=== PATIENT | male | born 1945 | race Caucasian/White ===

== ENCOUNTER 2018-10-05 16:57 | Observation (INO) ==
[2018-10-05] MEDS ORDERED: MoRPHine SULFATE 4 MG/ML 1 ML CARP\\VIAL IV STA ×2 (18:02→19:25)
[2018-10-05] MEDS ORDERED: SODIUM CHLORIDE 0.9% 500 ML IV SCH (18:15)
--- NOTE | 2018-10-05 18:42 | Emergency Department Note ---
Entered by Otoniel Yanes acting as a scribe for Johnathon Smith MD History of Present Illness General Chief complaint: Back Injury/Pain Time Seen by Provider: 10/05/18 17:57 Source: patient History of Present Illness Onset (ago): hour(s) (this morning) Location: back (lower) Pain Consistency: + constant Maximum Pain Intensity: 8 Exacerbated By: + movement Associated symptoms: + denies other symptoms (abdominal pain) and + other (right leg pain, groin pain); no chest pain, no fever/chills, no headaches, no nausea/vomiting and no shortness of breath The patient is a 73 y/o male who presents to the ED w/ CC of constant lower back pain beginning this morning. The patient states his symptoms started suddenly this morning after getting out of bed. He reports he was not able to urinate at first, but he is able to now. The patient notes his symptoms spread to his sides and through his abdomen to his groin. He states he also feels a "knot" on his bottom. The patient reports his pain also shoots down his right leg and worsens with movement, especially lifting his legs. He notes a history of three back surgeries with his last one being "quite a while ago" and was performed at [facility] in [place], [place]. The patient states he was brought to the ED via ambulance and was given Fentanyl. He reports the Fentanyl helped his pain but it is wearing off now. The patient notes he also has burning with urination, but he has an appointment in a week. He states a history of COPD and asthma as well. The patient reports his local PCP is the [facility] in [place], [place]. He denies falling and injuring himself, abdominal pain, nausea, vomiting, fevers, chills, numbness and weakness to his legs, bowel and bladder trouble, taking blood thinners, chest pain, shortness of breath, and headache. Home Medications Home Medications Medication Instructions Recorded Confirmed Type budesonide-formoterol [Symbicort] 1 puff INHALATION BID PRN 11/30/17 10/05/18 History bupropion HCl 150 mg PO QAM 11/30/17 10/05/18 History clonazepam 0.5 mg PO BID 11/30/17 10/05/18 History fluticasone propionate 2 spray INTRANASAL DAILY PRN 11/30/17 10/05/18 History gabapentin 300 mg PO TID 11/30/17 10/05/18 History lisinopril 10 mg PO DAILY 11/30/17 10/05/18 History pantoprazole 40 mg PO DAILY 11/30/17 10/05/18 History sertraline 100 mg PO BID 11/30/17 10/05/18 History tiotropium bromide [Spiriva with 1 cap INHALATION DAILY PRN 11/30/17 10/05/18 H istory HandiHaler] trazodone 300 mg PO HS 11/30/17 10/05/18 History tamsulosin [Flomax] 0.4 mg PO QPM 10/05/18 10/05/18 History Allergies Allergy/AdvReac Type Severity Reaction Status Date / Time ibuprofen Allergy Unknown HIVES Verified 10/05/18 21:38 Past Med/Surg History Medical History HTN (hypertension) (Chronic) BPH (benign prostatic hyperplasia) (Chronic) Asthma (Chronic) PTSD (post-traumatic stress disorder) (Chronic) MRSA (methicillin resistant Staphylococcus aureus) (Chronic) VIK on CPAP (Chronic) Surgical History History of intestinal surgery (Chronic) History of back surgery (Chronic) Family History Other Family history non-contributory Social History Preferred Language: Icelandic Communication Ability: Effective 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 and A total of 10 systems reviewed and were otherwise negative Physical Exam Vital Signs Vital Signs - 24 hr 10/05/18 16:55 10/05/18 19:00 10/05/18 20:42 Temperature 36.7 C Temperature Source Oral Sepsis Recent Fever Within 48 Hours No Sepsis New/Unexplained Change in Mental Status No Sepsis Action Taken by Nursing No Action Required Pulse Rate 79 59 L Pulse Rate [Apical] 57 L Pulse Rate from SpO2 Sensor 59 L Respiratory Rate 24 20 18 Respiratory Effort / Characteristics Non-Labored Spontaneous Respiratory Depth Normal Respiratory Pattern Regular Blood Pressure 121/68 124/73 Blood Pressure [Left Arm] 105/59 L Blood Pressure Mean 85 90 Blood Pressure Mean [Left Arm] 74 Pulse Oximetry 94 91 90 Oxygen Delivery Method Room Air Room Air 10/05/18 21:00 10/05/18 21:30 Temperature Temperature Source Sepsis Recent Fever Within 48 Hours Sepsis New/Unexplained Change in Mental Status Sepsis Action Taken by Nursing Pulse Rate 60 58 L Pulse Rate [Apical] Pulse Rate from SpO2 Sensor 60 58 L Respiratory Rate 17 18 Respiratory Effort / Characteristics Respiratory Depth Respiratory Pattern Blood Pressure 105/60 105/66 Blood Pressure [Left Arm] Blood Pressure Mean 75 79 Blood Pressure Mean [Left Arm] Pulse Oximetry 90 95 Oxygen Delivery Method General: Uncomfortable appearing older male in no acute distress. Significant pain with movement but minimal pain at rest. HEENT: Normal cephalic atraumatic. Pupils are equal round and reactive to light. Extraocular movements are intact. Oropharynx is pink with moist mucous membranes. No swelling of the mouth lips or tongue. Neck: Supple with a midline trachea. No meningeal signs or stiffness, no JVD or bruits. No Stridor. Chest: Clear to auscultation bilaterally. No wheezes or rhonchi. No increased work of breathing. Heart: regular rate and rhythm. Abdomen: Soft nontender, nondistended without rebound guarding or rigidity. Extremities: No cyanosis clubbing or edema. No calf tenderness or asymmetry Spine/Back. Tenderness to palpation along the lower back near the SI joint. Intact reflexes to the lower extremities in addition to motor and sensation. No CVA tenderness. Skin: Good turgor without rashes. Neurologic exam: Cranial nerves two through 12 are intact. Motor and sensation are intact and symmetrical throughout. Course 1757: Past medical records reviewed. The patient was evaluated in room A12B. A complete history and physical exam was performed. 1923: I reevaluated the patient. He appears more comfortable, but he is still having pain. He settled slightly. His blood work is unremarkable. He is getting more morphine. 2045: The patient does not think he can go home upon reevaluation. 2047: I discussed the patient's case with Dr. Peña, [facility] Hospitalist. The patient will be evaluated for further management and care. Administered Medications Clonazepam (Klonopin) 0.5 mg PO BID MARIBETH Stop: 11/04/18 22:28 Last Admin: 10/05/18 23:18 Dose: 0.5 mg Documented by: [id number] Gabapentin (Neurontin) 300 mg PO BID MARIBETH Stop: 11/04/18 22:28 Last Admin: 10/05/18 23:18 Dose: 300 mg Documented by: [id number] Oxycodone/Acetaminophen (Percocet 5mg/325mg) 1 tab PO Q6H PRN PRN Reason: Pain Stop: 10/19/18 22:28 Last Admin: 10/05/18 22:51 Dose: 1 tab Documented by: [id number] Sertraline HCl (Zoloft) 100 mg PO BID MARIBETH Stop: 11/04/18 22:28 Last Admin: 10/05/18 23:18 Dose: 100 mg Documented by: [id number] Trazodone HCl (Desyrel) 300 mg PO HS MARIBETH Stop: 11/05/18 20:59 Last Admin: 10/05/18 23:39 Dose: 300 mg Documented by: [id number] Discontinued Medications Sodium Chloride (Nss) 500 mls @ 999 mls/hr IV .Q31M MARIBETH Stop: 10/05/18 18:45 Last Infusion: 10/05/18 19:13 Dose: 0 mls/hr Documented by: [id number] Admin: 10/05/18 18:49 Dose: 999 mls/hr Documented by: [id number] Methylprednisolone (Solumedrol) 125 mg IV NOW STA Stop: 10/05/18 20:42 Last Admin: 10/05/18 20:47 Dose: 125 mg Documented by: [id number] Morphine Sulfate (Morphine Sulfate) 4 mg IV NOW STA Stop: 10/05/18 18:03 Last Admin: 10/05/18 18:49 Dose: 4 mg Documented by: [id number] Morphine Sulfate (Morphine Sulfate) 4 mg IV NOW STA Stop: 10/05/18 19:26 Last Admin: 10/05/18 19:38 Dose: 4 mg Documented by: [id number] Medical Decision Making Differential Diagnosis Differential diagnosis includes: lumbar disk disease, muscle spasm, aneurysm, kidney stone, infection, electrolyte or metabolic abnormality, and Cauda equina. Medical Records Attestation: I reviewed the patient's medical records. Home Medications Current Medication List: was personally reviewed by me Laboratory Data Attestation: I reviewed the patient's lab results. Result diagrams: 10/05/18 18:32 10/05/18 18:32 Lab Results 10/05/18 10/05/18 10/05/18 Range/Units 18:32 18:32 19:50 WBC 7.42 (4.8-10.8) K/uL RBC 4.78 (4.7-6.1) M/uL Hgb 13.3 L (14.0-18.0) g/dL Hct 40.6 L (42-52) % MCV 84.9 (80-100) fL MCH 27.8 (25-34) pg MCHC 32.8 (32-36) g/dL RDW Std Deviation 43.9 (36.4-46.3) fL RDW Coeff of Hector 14.0 (11.5-14.5) % Plt Count 192 (130-400) K/uL MPV 10.2 (7.4-10.4) fL Immature Gran % (Auto) 0.5 % Neut % (Auto) 74.6 % Lymph % (Auto) 14.3 % Ross % (Auto) 9.0 % Eos % (Auto) 1.5 % Baso % (Auto) 0.1 % Immature Gran # (Auto) 0.04 H (0.00-0.02) K/uL Neut # (Auto) 5.53 (1.4-6.5) K/uL Lymph # (Auto) 1.06 L (1.2-3.4) K/uL Ross # (Auto) 0.67 H (0.11-0.59) K/uL Eos # (Auto) 0.11 (0-0.5) K/uL Baso # (Auto) 0.01 (0-0.2) K/uL Sodium 137 (136-145) mmol/L Potassium 4.2 (3.5-5.1) mmol/L Chloride 105 (98-107) mmol/L Carbon Dioxide 27 (21-32) mmol/L Anion Gap 5.0 (3-11) BUN 13 (7-18) mg/dl Creatinine 1.18 (0.6-1.4) mg/dl Est Cr Clr Drug Dosing 64.2 ml/min Est GFR ( Amer) 71.5 Est GFR (Non-Af Amer) 61.7 BUN/Creatinine Ratio 11.4 (10-20) Glucose 90 (70-99) mg/dl Calcium 8.8 (8.5-10.1) mg/dl Total Bilirubin 0.6 (0.2-1) mg/dl AST 17 (15-37) U/L ALT 24 (12-78) U/L Alkaline Phosphatase 55 (45-117) U/L Total Protein 7.0 (6.4-8.2) gm/dl Albumin 3.8 (3.4-5.0) gm/dl Globulin 3.2 (2.5-4.0) gm/dl Albumin/Globulin Ratio 1.2 (0.9-2) Urine Color Dark Yellow Urine Appearance Clear (Clear) Urine pH 5.0 (4.5-7.5) Ur Specific Clarkrange 1.023 (1.000-1.030) Urine Protein Negative (Negative) Urine Glucose (UA) Negative (Negative) Urine Ketones Trace H (Negative) Urine Blood Negative (Negative) Urine Nitrite Negative (Negative) Urine Bilirubin Negative (Negative) Urine Urobilinogen Negative (Negative) Ur Leukocyte Esterase Trace H (Negative) Urine WBC (Auto) 1-5 (0-5) /hpf Urine RBC (Auto) 0-4 (0-4) /hpf U Hyaline Cast (Auto) 5-10 H (0-5) /lpf U Epithel Cells (Auto) 10-20 H (0-5) /lpf Urine Bacteria (Auto) Negative (Negative) Imaging Data Radiologist's Impression: Radiology results as stated below per my review and the radiologist's interpretation: CT lumbar spine wo con CLINICAL HISTORY: 73 years-old Male presenting with lower abdominal pain, back pain. TECHNIQUE: Multidetector CT of the lumbar spine was performed without the use of intravenous contrast. IV contrast: None. One or more dose lowering techniques were used consistent with the principles of ALARA (as low as reasonably achievable), including automatic exposure control, mA or kV adjustment to i ndividual patient size, and/or use of iterative reconstruction. COMPARISON: None. CT DOSE (mGy.cm): The estimated cumulative dose is 1381.63 mGy.cm. FINDINGS: Software Tester topogram: Orthopedic hardware. Posterior bilateral transpedicular screw and adelso fixation of L5-S1. Osseous fusion across this level is evident. No hardware breakage or lucency surrounding the hardware is evident. Interbody spacers noted at L5-S1. Normal lumbar lordosis. Vertebral bodies maintain normal height and alignment. Intervertebral disc heights preserved at the nonoperative levels. Limited evaluation of the soft tissues demonstrate possible disc bulge at L4-5 with only mild effacement of the spinal canal. Anterior osteophytosis is evident. No significant osseous neural foraminal narrowing. No fracture or subluxation. Visualized portion of the sacrum intact. Paraspinal soft tissues within normal limits. Atherosclerosis noted. IMPRESSION: 1. No acute osseous injury of the lumbar spine. 2. Posterior lumbar fusion of L5-S1. No hardware complication. 3. Suspected adjacent level degenerative change at L4-5. Electronically signed by: Owen Duque M.D. 10/05/2018 7:[address] abd pelvis wo con CLINICAL HISTORY: 73 years-old Male presenting with lower abdominal pain, back pain. TECHNIQUE: Multidetector CT of the abdomen and pelvis was performed without the use of intravenous contrast. IV contrast: None. One or more dose lowering techniques were used consistent with the principles of ALARA (as low as reasonably achievable), including automatic exposure control, mA or kV adjustment to individual patient size, and/or use of iterative reconstruction. COMPARISON: 07/30/2012. CT DOSE (mGy.cm): The estimated cumulative dose is 1381.63. FINDINGS: Software Tester topogram: Orthopedic hardware. Lung bases: Normal heart size. Coronary artery calcification. No pericardial or pleural effusion. Minimal dependent changes likely atelectasis. Calcified granuloma. Liver: Normal morphology. Density consistent with hepatic steatosis. Biliary: No gross biliary ductal dilatation allowing for noncontrast technique. Normal gallbladder. Pancreas: Mild parenchymal atrophy. Spleen: Normal noncontrast appearance. Adrenal glands: Normal noncontrast appearance. Kidneys and ureters: Moderate bilateral nonspecific perinephric fat infiltration. Nonobstructing 8 mm calculus in the interpolar region of the right kidney. Cortical thinning is suggested. No hydronephrosis. Ureters nondistended. Bladder: Circumferential bladder wall thickening incompletely explained by underdistention. Pelvic organs: Normal noncontrast appearance. Bowel: Diverticulosis of the proximal to mid sigmoid colon. No wall thickening or pericolonic inflammatory change. The appendix is normal. No bowel obstruction. Peritoneal cavity: No free fluid or intraperitoneal gas. Lymph nodes: No gross lymphadenopathy allowing for noncontrast technique. Vasculature: Atherosclerosis of the normal caliber abdominal aorta. Abdominal wall: Postsurgical changes of the ventral abdominal wall with a prost hetic mesh likely in place. No associated fluid collection. No ventral hernia. Musculoskeletal: Degenerative changes of the spine. Posterior bilateral transpedicular screw and adelso fixation of L5-S1 with interbody spacer in place. Nondisplaced subacute fractures of the lateral and posterior ninth through 11th ribs on the left. No convincing evidence of acute fracture. IMPRESSION: 1. Allowing for noncontrast technique, no acute intra-abdominal pathology. 2. Circumferential bladder wall thickening may indicate chronic bladder outlet obstruction despite the absence of prostatomegaly. Correlate with urinalysis to exclude cystitis. 3. Diverticulosis coli. No evidence of diverticulitis. 4. Post surgical changes of the anterior abdominal wall. 5. Hepatic steatosis. 6. Right nephrolithiasis. 7. Subacute fractures of several left ribs. Electronically signed by: Owen Duque M.D. 10/05/2018 7:21 PM Blood Pressure Blood Pressure Findings: Normal blood pressure Blood Pressure Disposition: did not require urgent referral MDM Narrative This patient comes in as described above. He was placed in room A12. He is here for treatment evaluation of low back pain. He had several back surgeries. This started today when he was moving. It does radiate down his right leg. He has no neurologic deficits and has nothing to suggest cauda equina syndrome. He has nothing to suggest infection. He did receive IV fentanyl. He seems comfortable except for when I try to move him. He was given additional IV morphine and IV Zofran. Multiple blood testing was obtained as well as urinalysis and culture. He has no white count or fever to suggest infection. He has no acute electrolyte or metabolic abnormalities. He did receive IV morphine and was still having significant pain. He received additional doses of IV morphine. I did do a CAT scan of the abdomen and back. There are no acute findings on his CAT scan of his abdomen or back. His bladder has some chronic changes. He did receive IV Solu-Medrol as well. He does not feel that he can go home at this point. I do think he needs to be admitted/observe for intractable pain and treatment of pain management and further evaluation of his back. I did consult the [facility] hospitalist to see him in the ER for these measures. Impression & Plan Intractable back pain, DDD (degenerative disc disease) Discharge Plan Visit Data *Final* Discharge Date/Time: 10/05/18 21:52 Chief Complaint: Back Injury/Pain ED Provider: Johnathon Smith Discharge Problem: Intractable back pain, DDD (degenerative disc disease) Patient Disposition: Admitted As Inpatient Discharge Instructions Interventions: ED Discharge Assessment Last Done: 10/05/18 21:52 Discharge Problem: DDD (degenerative disc disease) Qualifiers: Spinal region: lumbar Qualified Code(s): M51.36 - Other intervertebral disc degeneration, lumbar region The scribe's documentation has been prepared under my direction and personally reviewed by me in its entirety. I confirm that the note above accurately reflects all work, treatment, procedures, and medical decision making performed by me.
[2018-10-05 18:46] LABS: Basophils # (auto) 0.01 K/uL (0-0.2); Basophils % (auto) 0.1 %; Eosinophils # (auto) 0.11 K/uL (0-0.5); Eosinophils % (auto) 1.5 %; Hematocrit (blood only) 40.6 % (42-52); Hemoglobin 13.3 g/dL (14.0-18.0); Immature Granulocytes # (auto) 0.04 K/uL (0.00-0.02); Immature Granulocytes % (auto) 0.5 %; Lymphocytes # (auto) 1.06 K/uL (1.2-3.4); Lymphocytes % (auto) 14.3 %; Mean Corpuscular Hgb Conc 32.8 g/dL (32-36); Mean Corpuscular Volume 84.9 fL (80-100); Mean Platelet Volume 10.2 fL (7.4-10.4); Monocytes # (auto) 0.67 K/uL (0.11-0.59); Neutrophils # (auto) 5.53 K/uL (1.4-6.5); Neutrophils % (auto) 74.6 %; Platelet Count 192 K/uL (130-400); RDW Standard Deviation 43.9 fL (36.4-46.3); Red Blood Count 4.78 M/uL (4.7-6.1); White Blood Count 7.42 K/uL (4.8-10.8)
[2018-10-05 19:02] LABS: Albumin Level 3.8 gm/dl (3.4-5.0); BUN Creatinine Ratio 11.4 (10-20); Calcium 8.8 mg/dl (8.5-10.1); Creatinine Clr Calc Pharmacy 64.2 ml/min; Est GFR (African American) 71.5; Est GFR (Non-African American) 61.7; Potassium 4.2 mmol/L (3.5-5.1)
[2018-10-05 19:05] LABS: Albumin Globulin Ratio 1.2 (0.9-2); Bilirubin,Total 0.6 mg/dl (0.2-1); Globulin 3.2 gm/dl (2.5-4.0)
--- NOTE | 2018-10-05 19:22 | CT Scan Report ---
CT abd pelvis wo con CLINICAL HISTORY: 73 years-old Male presenting with lower abdominal pain, back pain. TECHNIQUE: Multidetector CT of the abdomen and pelvis was performed without the use of intravenous co ntrast. IV contrast: None. One or more dose lowering techniques were used consistent with the princip les of ALARA (as low as reasonably achievable), including automatic exposure control, mA or kV adjust ment to individual patient size, and/or use of iterative reconstruction. COMPARISON: 07/30/2012. CT DOSE (mGy.cm): The estimated cumulative dose is 1381.63. FINDINGS: Freight Dispatcher topogram: Orthopedic hardware. Lung bases: Normal heart size. Coronary artery calcification. No pericardial or pleural effusion. Min imal dependent changes likely atelectasis. Calcified granuloma. Liver: Normal morphology. Density consistent with hepatic steatosis. Biliary: No gross biliary ductal dilatation allowing for noncontrast technique. Normal gallbladder. Pancreas: Mild parenchymal atrophy. Spleen: Normal noncontrast appearance. Adrenal glands: Normal noncontrast appearance. Kidneys and ureters: Moderate bilateral nonspecific perinephric fat infiltration. Nonobstructing 8 mm calculus in the interpolar region of the right kidney. Cortical thinning is suggested. No hydronephr osis. Ureters nondistended. Bladder: Circumferential bladder wall thickening incompletely explained by underdistention. Pelvic organs: Normal noncontrast appearance. Bowel: Diverticulosis of the proximal to mid sigmoid colon. No wall thickening or pericolonic inflamm atory change. The appendix is normal. No bowel obstruction. Peritoneal cavity: No free fluid or intraperitoneal gas. Lymph nodes: No gross lymphadenopathy allowing for noncontrast technique. Vasculature: Atherosclerosis of the normal caliber abdominal aorta. Abdominal wall: Postsurgical changes of the ventral abdominal wall with a prosthetic mesh likely in p lace. No associated fluid collection. No ventral hernia. Musculoskeletal: Degenerative changes of the spine. Posterior bilateral transpedicular screw and adelso fixation of L5-S1 with interbody spacer in place. Nondisplaced subacute fractures of the lateral and posterior ninth through 11th ribs on the left. No convincing evidence of acute fracture. IMPRESSION: 1. Allowing for noncontrast technique, no acute intra-abdominal pathology. 2. Circumferential bladder wall thickening may indicate chronic bladder outlet obstruction despite t he absence of prostatomegaly. Correlate with urinalysis to exclude cystitis. 3. Diverticulosis coli. No evidence of diverticulitis. 4. Post surgical changes of the anterior abdominal wall. 5. Hepatic steatosis. 6. Right nephrolithiasis. 7. Subacute fractures of several left ribs. Electronically signed by: Owen Duque M.D. 10/05/2018 7:21 PM
--- NOTE | 2018-10-05 19:26 | CT Scan Report ---
CT lumbar spine wo con CLINICAL HISTORY: 73 years-old Male presenting with lower abdominal pain, back pain. TECHNIQUE: Multidetector CT of the lumbar spine was performed without the use of intravenous contrast . IV contrast: None. One or more dose lowering techniques were used consistent with the principles of ALARA (as low as reasonably achievable), including automatic exposure control, mA or kV adjustment t o individual patient size, and/or use of iterative reconstruction. COMPARISON: None. CT DOSE (mGy.cm): The estimated cumulative dose is 1381.63 mGy.cm. FINDINGS: Ear Machine Operator topogram: Orthopedic hardware. Posterior bilateral transpedicular screw and adelso fixation of L5-S1. Osseous fusion across this level is evident. No hardware breakage or lucency surrounding the hardware is evident. Interbody spacers no margarita at L5-S1. Normal lumbar lordosis. Vertebral bodies maintain normal height and alignment. Intervertebral disc he ights preserved at the nonoperative levels. Limited evaluation of the soft tissues demonstrate possib le disc bulge at L4-5 with only mild effacement of the spinal canal. Anterior osteophytosis is eviden t. No significant osseous neural foraminal narrowing. No fracture or subluxation. Visualized portion of the sacrum intact. Paraspinal soft tissues within normal limits. Atherosclerosis noted. IMPRESSION: 1. No acute osseous injury of the lumbar spine. 2. Posterior lumbar fusion of L5-S1. No hardware complication. 3. Suspected adjacent level degenerative change at L4-5. Electronically signed by: Owen Duque M.D. 10/05/2018 7:24 PM
[2018-10-05 20:23] LABS: Appearance Urine Clear (Clear); Bacteria Urine Automated Negative (Negative); Blood Urine Negative (Negative); Color Urine Dark Yellow; Glucose Urine UA Negative (Negative); Ketones Urine Trace (Negative); Leukocyte Esterase Urine Trace (Negative); Nitrite Urine Negative (Negative); Protein Urine Negative (Negative); RBC Urine Automated 0-4 /hpf (0-4); Specific Gravity Urine 1.023 (1.000-1.030); Urobilinogen Urine Negative (Negative)
[2018-10-05 20:37] LABS: Bilirubin Urine Negative (Negative); Ictotest Urine Negative (Negative)
[2018-10-05] MEDS ORDERED: methylPREDNISolone 125 MG/2 ML VIAL IV STA (20:41)
[2018-10-05] MEDS ORDERED: ONDANSETRON INJ 2 MG/ML 2 ML VIAL IV PRN (22:29)
[2018-10-05] MEDS ORDERED: TIOTROPIUM BROMIDE 5 PUFF/90 MCG INH INH PRN (22:29)
[2018-10-05] MEDS ORDERED: BUDESONIDE/FORMOTEROL FUMARATE 160/4.5 60 PUFFS/INHALER INH PRN (22:29)
[2018-10-05] MEDS ORDERED: HYDROmorphone INJ 0.5 MG/0.5 ML SYR IV PRN (22:29)
[2018-10-05] MEDS ORDERED: FLUTICASONE PROPIONATE NA SPR 16 GM BTL PRN (22:29)
[2018-10-05] MEDS ORDERED: ACETAMINOPHEN 325 MG TAB PO PRN (22:29)
[2018-10-05] MEDS ORDERED: POLYETHYLENE (MIRALAX) 17 GM PACK PO PRN (22:29)
[2018-10-05] MEDS: OXYCODONE/ACETAMINOPHEN 5mg/325mg TAB PO PRN (22:51)
[2018-10-05] MEDS: SERTRALINE HCL 100 MG TABLET PO SCH (23:18)
[2018-10-05] MEDS: clonazePAM 0.5 MG TAB PO SCH (23:18)
[2018-10-05] MEDS: GABAPENTIN 300 MG CAP PO SCH (23:18)
[2018-10-05] MEDS: TRAZODONE HCL 100 MG TAB PO SCH (23:39)
--- NOTE | 2018-10-06 01:54 | History and Physical Report ---
DATE OF ADMISSION: 10/05/2018 CHIEF COMPLAINT: Severe back pain. HISTORY OF PRESENT ILLNESS: A 73-year-old male with past medical history significant for COPD, PTSD, obstructive sleep apnea, hypertension, BPH, history of back surgeries x3 at [facility] in [place], presents with severe back pain. The patient says that today morning he woke up with severe back pain, moving his legs , trying to ambulate makes it worse, initially had problem to get up, finally was able to hold things and go to bathroom. No incontinence of urine or stools. The patient has trouble urinating for some time. He feels like a burning sensation before he micturates and after that he does not feel like it is getting emptied fully and he has an appointment with [place] [facility]. Denies any hematuria. Normal bowel movements. No blood in stools or black stools. He has a chronic cough, brings some yellowish phlegm once in a while and he has shortness of breath on exertion, he could not walk far because of his back pain and his COPD. He quit smoking 50 years ago. Denies any headache. He has some issues with left eye vision and is following with [facility]. No sore throat, no difficulty swallowing. Appetite is okay. No chest pain, no nausea, no vomiting, no abdominal pain. Currently resting comfortably and hemodynamically stable. ALLERGIES: IBUPROFEN. PAST MEDICAL HISTORY: As mentioned above. PAST SURGICAL HISTORY: Back surgeries x3, colectomy for C. diff, umbilical hernia surgery with mesh placement. MEDICATIONS: The patient is on Symbicort 1 puff inhalation b.i.d. p.r.n., bupropion 150 mg p.o. q.p.m., vitamin D 1000 units p.o. daily, Klonopin 0.5 mg p.o. b.i.d., Flonase 2 sprays intranasally daily p.r.n., gabapentin 300 mg p.o. b.i.d., lisinopril 10 mg p.o. daily, Protonix 40 mg p.o. daily, sertraline 100 mg p.o. b.i.d., Flomax 0.4 mg p.o. q.p.m., Spiriva 18 mcg inhalation daily, trazodone 300 mg p.o. at bedtime. FAMILY HISTORY: Significant for mother had colon cancer. SOCIAL HISTORY: Quit smoking 50 years ago. Drinks 3 beers every day. Lives with his . REVIEW OF SYMPTOMS: As per HPI. Rest of the review of symptoms is negative. PHYSICAL EXAMINATION: GENERAL: The patient is alert and oriented, not in acute distress, obese. VITAL SIGNS: Temperature 36.7, pulse 76, respiratory rate 17, blood pressure 105/60, oxygen 98% on room air. HEENT: No pallor, no icterus. Pupils equal, round, and reactive to light. NECK: No JVD, no neck masses, no carotid bruits. CARDIOVASCULAR: S1, S2 heard, regular rate and rhythm, no murmur, no gallop. RESPIRATORY SYSTEM: Normal AP diameter. No thyromegaly. No wheezing, no crackles. ABDOMEN: Soft, bowel sounds present, nontender. No distention. CENTRAL NERVOUS SYSTEM: Cranial nerves II-XII grossly intact. Nonfocal. EXTREMITIES: No edema, no erythema. MUSCULOSKELETAL: Bilateral straight leg raise test positive. LABORATORIES: WBC 7.4, hemoglobin 13.3, hematocrit 40.6, platelets 192. Sodium 137, potassium 4.2, chloride 105, bicarbonate 27, BUN 13, creatinine 1.1, serum glucose 90, calcium 8.8, total bilirubin 0.6, AST 17, ALT 24, alkaline phosphatase 55. Urinalysis, trace ketones, trace leukocyte esterase. Lumbar spine CT; no acute osseous injury of the lumbar spine, post-lumbar fusion of L5-S1, no hardware complications, suspected adjacent level degenerative changes at L4-L5. CT of the abdomen and pelvis allowing for noncontrast check; no acute intracranial pathologies, circumferential bladder wall thickening may indicate chronic bladder outlet obstruction despite absence of prostatomegaly. Correlate with urinalysis to exclude cystitis, diverticulosis coli, no evidence for diverticulitis, right nephrolithiasis, subacute fractures of several left ribs. ASSESSMENT AND PLAN: This is a 73-year-old male who presents with severe back pain. 1. Intractable back pain: CAT scan of the lower back with no acute findings. CT of abdomen and pelvis; chronic bladder outlet obstruction, subacute fractures of several left ribs, otherwise unremarkable. We will control pain with IV Dilaudid p.r.n. and Percocet p.r.n. Physical therapy and occupational therapy. Will get an MRI scan of the lumbar spine and observe him in the medical floor. 2. Benign prostatic hypertrophy: On Flomax. The patient says he is also having issues with micturition and supposed to follow with urology at [place]. UA is slightly positive; we will follow the cultures. Continue Flomax for now. Follow the bladder scans. 3. Obstructive sleep apnea: On CPAP at bedtime. 4. Posttraumatic stress disorder: Continue home medications. 5. Chronic obstructive pulmonary disease: Continue home inhalers, currently stable. 6. Hypertension: On lisinopril. 7. Gastroesophageal reflux disease: On Protonix. 8. Deep venous thrombosis prophylaxis: Sequential compression devices for now. 9. Disposition: Observation in the medical floor. Expect discharging to home and follow with family doctor. Level 1 full code. MTDD
[2018-10-06 06:03] LABS: Eosinophils # (auto) 0.01 K/uL (0-0.5); Eosinophils % (auto) 0.2 %; Hematocrit (blood only) 41.4 % (42-52); Hemoglobin 14.1 g/dL (14.0-18.0); Immature Granulocytes # (auto) 0.02 K/uL (0.00-0.02); Immature Granulocytes % (auto) 0.4 %; Lymphocytes # (auto) 0.57 K/uL (1.2-3.4); Lymphocytes % (auto) 10.8 %; Mean Corpuscular Hgb Conc 34.1 g/dL (32-36); Mean Corpuscular Volume 85.9 fL (80-100); Mean Platelet Volume 10.2 fL (7.4-10.4); Monocytes # (auto) 0.04 K/uL (0.11-0.59); Monocytes % (auto) 0.8 %; Neutrophils # (auto) 4.62 K/uL (1.4-6.5); Neutrophils % (auto) 87.8 %; Platelet Count 201 K/uL (130-400); RDW Standard Deviation 44.2 fL (36.4-46.3); Red Blood Count 4.82 M/uL (4.7-6.1); White Blood Count 5.26 K/uL (4.8-10.8)
[2018-10-06 06:38] LABS: BUN Creatinine Ratio 13.6 (10-20); Calcium 8.4 mg/dl (8.5-10.1); Creatinine Clr Calc Pharmacy 53.2 ml/min; Est GFR (African American) 61.9; Est GFR (Non-African American) 53.4; Potassium 4.9 mmol/L (3.5-5.1)
[2018-10-06] MEDS: SERTRALINE HCL 100 MG TABLET PO SCH ×2 (08:44→22:27)
[2018-10-06] MEDS: clonazePAM 0.5 MG TAB PO SCH ×2 (08:44→22:26)
[2018-10-06] MEDS: GABAPENTIN 300 MG CAP PO SCH ×2 (08:44→22:26)
[2018-10-06] MEDS: CHOLECALCIFEROL 1,000 UNITS TAB PO SCH (08:44)
[2018-10-06] MEDS: predniSONE 20 MG TAB PO SCH (08:45)
[2018-10-06] MEDS: LISINOPRIL 10 MG TAB PO SCH (08:46)
[2018-10-06] MEDS: OXYCODONE/ACETAMINOPHEN 5mg/325mg TAB PO PRN ×3 (08:48→22:31)
--- NOTE | 2018-10-06 09:20 | Hospitalist Progress Note ---
Date of Service October 06, 2018 Assessment & Plan (1) Intractable back pain: (2) DDD (degenerative disc disease): Patient is a 73-year-old male with history of COPD, PTSD, obstructive sleep apnea, hypertension, BPH, history of back surgeries x3 at [facility] in [place], comes to ED with complaint of severe back pain/worsening ambulatory dysfunction. Intractable back pain: History of back surgeries x3 at [facility] in [place], comes with worsening of back pain leading to ambulatory dysfunction. No trauma or triggering events. States that he does have chronic low back pain which exacerbates with heavy weight lifting, but recently he did not lift any thing heavy. Few weeks ago he was at the [place] for an injection for pain in his lower back. Probably exacerbation of underlying chronic back pain, acute issues ruled out - Marginal improvement -CAT scan of lumbar spine/ MRI Spine with no acute findings. Posterior lumbar fusion of L5-S1, no hardware complication, suspected degenerative changes at L4- 5. No disc bulge or cervical canal stenosis. CT of abdomen and pelvis - chronic bladder outlet obstruction, right nephrolithiasis, subacute fractures of several left ribs. -IV Dilaudid PRN (decrease frequency), Percocet PRN -Prednisone 40 mg was started on admission- Continue day 2/5 -PT/OT ordereddid not participate today due to pain. Benign prostatic hypertrophy: -On Flomax. -Some issues with micturition and supposed to follow with urology at [place]. -Partially positive urine. Follow-up urine culture. No indication of antibiotics at this point. Obstructive sleep apnea: -On CPAP at bedtime. Posttraumatic stress disorder: -Continue home medications. Chronic obstructive pulmonary disease: No signs of exacerbation -continue home inhalers Hypertension: Stable On lisinopril. Gastroesophageal reflux disease: On Protonix. Deep venous thrombosis prophylaxis: Sequential compression devices for now. Full code Disposition: -Observation status -PT/OT on board -Expect discharging to home and follow with family doctor. Subjective Patient continues to complain of low back pain. States he feels a little better than yesterday but however was not able to participate with physical therapy due to pain. Denies any trauma or lifting any heavy weights/objects recently He does have baseline chronic low back pain and few weeks ago got an injection in his back from [place] with whom he follows up for his back pain with prior surgeries. He states that at times when he lifts heavy objects he does experience worsening of pain, but this was without any provoking events while he was resting and woke up in the morning. Does have some associated right hip pain with numbness and right lower extremity. Denies any urinary/bowel incontinence, fever, chills, weight loss, localized weakness Physical Exam Physical Exam: GENERAL- AAOX3, No acute distress, obesity LUNGS- Air entry bilaterally equal. No rales, rhonchi, crackles, wheezes heard. HEART- Regular rate and rhythm. No murmurs ABDOMEN- Soft, non tender, non distended, Bowel sounds heard. EXTREMITIES- Good peripheral pulses, no edema NEUROMUSCULAR- AAOX3, power5/5 all extremities, cranial nerves intact BACK -point tenderness in lower spinal region. Results & Data Vital Signs (Past 12 Hours) Vital Signs Temp Pulse Pulse Resp BP BP Pulse Ox 10/06/18 07:24 36.4 C L 51 L 18 103/64 92 10/05/18 22:58 36.4 C L 60 17 124/72 93 10/05/18 22:05 36.4 C L 55 L 16 127/80 92 10/05/18 21:30 58 L 18 105/66 95 (1) DDD (degenerative disc disease) Spinal region: lumbar Qualified Code(s): M51.36 - Other intervertebral disc degeneration, lumbar region
[2018-10-06] MEDS ORDERED: HYDROmorphone INJ 0.5 MG/0.5 ML SYR IV PRN (09:24)
[2018-10-06] MEDS ORDERED: GADOBUTROL 65ML VIAL IV PRN (10:03)
[2018-10-06] MEDS: PANTOprazole 40 MG TAB PO SCH (10:19)
--- NOTE | 2018-10-06 11:26 | Magnetic Resonance Report ---
MRI OF THE LUMBAR SPINE COMBO CLINICAL HISTORY: Low back pain. COMPARISON STUDY: CT of the lumbar spine dated 10/05/2018. Abdominal CT dated 07/30/2012. TECHNIQUE: MRI of the lumbar spine is performed utilizing various T1 and T2-weighted sequences in the axial and sagittal planes. Contrast-enhanced sequences were acquired following the IV administration of 9.5 cc of Gadavist. The examination is modestly degraded by motion artifact. FINDINGS: Lumbar spine: Vertebral body height and alignment are maintained throughout the lumbar spine. Marrow signal intensity is heterogeneous. Anterior and lateral marginal osteophytes are seen throughout. The re is postoperative change from laminectomy and posterior fusion seen at L5-S1. Interpedicular screws are present at both levels. The transverse processes appear intact. There is no evidence of spondylo lysis. Chronic degenerative endplate change is seen at most lumbar levels. A small hemangioma is seen in the body of L1. No destructive bony lesion is identified. Intervertebral discs: There has been discectomy at L5-S1. Mild degenerative disc desiccation and loss of height are seen at the remaining lumbar levels. Spinal cord: The partially imaged spinal cord is normal in morphology and signal intensity. The conus medullaris terminates at the T12-L1 interspace. The nerve roots of the cauda equina are normal in mo rphology. There is no abnormal postcontrast enhancement identified. L1-L2: Unremarkable. L2-L3: Mild facet arthropathy is of no consequence. The central canal and neural foramina are patent. L3-L4: Mild facet arthropathy is of no consequence. The central canal and neural foramina are patent. L4-L5: Mild facet arthropathy is of no consequence. The central canal and neural foramina are patent. L5-S1: Evaluation of this level is degraded by susceptibility artifact from metallic orthopedic hardw are. There is facet arthropathy and bulky osteophyte formation on the right. This causes right-sided neural foraminal stenosis. The left neural foramen appears clear. There is no central canal compromis e. Sacrum: The visualized sacrum is normal in morphology and signal intensity. There is susceptibility a rtifact in the sacral alae secondary to metallic spinal hardware. Soft tissues: Postoperative change is seen posteriorly at L5-S1. There is near-complete fatty atrophy of the paraspinous musculature. The retroperitoneal structures are grossly unremarkable but incomple tely assessed. IMPRESSION: 1. There is no disc herniation or central canal stenosis. 2. Again seen is postoperative change from L5-S1 spinal fusion. 3. Mild multilevel spondylosis as above. See discussion for detailed [id number] analysis. 4. No destructive bony process is identified. Dictated: 10/06/2018 10:13 AM Transcribed: 10/06/2018 10:58 AM Tiffany [id number] [email or web address] Electronically signed by: Joel Prater M.D. 10/06/2018 11:24 AM
[2018-10-06] MEDS ORDERED: BuPROPion XL 150 MG TABCR PO SCH (21:00)
[2018-10-06] MEDS ORDERED: TAMSULOSIN HCL 0.4 MG CAP PO SCH (21:00)
[2018-10-06] MEDS: TRAZODONE HCL 100 MG TAB PO SCH (22:26)
[2018-10-07] MEDS: OXYCODONE/ACETAMINOPHEN 5mg/325mg TAB PO PRN ×2 (08:13→13:36)
[2018-10-07] MEDS: predniSONE 20 MG TAB PO SCH (08:54)
[2018-10-07] MEDS: clonazePAM 0.5 MG TAB PO SCH (08:54)
[2018-10-07] MEDS: PANTOprazole 40 MG TAB PO SCH (08:54)
[2018-10-07] MEDS: GABAPENTIN 300 MG CAP PO SCH (08:54)
[2018-10-07] MEDS: CHOLECALCIFEROL 1,000 UNITS TAB PO SCH (08:55)
[2018-10-07] MEDS: SERTRALINE HCL 100 MG TABLET PO SCH (08:55)
[2018-10-07] MEDS: LISINOPRIL 10 MG TAB PO SCH (08:55)
--- NOTE | 2018-10-07 12:47 | Hospitalist Progress Note ---
Date of Service October 07, 2018 Assessment & Plan (1) Intractable back pain: (2) DDD (degenerative disc disease): Patient is a 73-year-old male with history of COPD, PTSD, obstructive sleep apnea, hypertension, BPH, history of back surgeries x3 at [facility] in [place], comes to ED with complaint of severe back pain/worsening ambulatory dysfunction. Intractable back pain: Improved History of back surgeries x 3 at [facility] in [place], comes with worsening of back pain leading to ambulatory dysfunction. No trauma or triggering events. States that he does have chronic low back pain which exacerbates with heavy weight lifting, but recently he did not lift any thing heavy. Few weeks ago he was at the [place] for an injection for pain in his lower back. Probably exacerbation of underlying chronic back pain, acute issues ruled out - Improved with pain meds/prednisone -CAT scan of lumbar spine/ MRI Spine with no acute findings. Posterior lumbar fusion of L5-S1, no hardware complication, suspected degenerative changes at L4- 5. No disc bulge or cervical canal stenosis. CT of abdomen and pelvis - chronic bladder outlet obstruction, right nephrolithiasis, subacute fractures of several left ribs. -Using only PO narcotics. Will discharge on percocet PRN and Prednisone day 3/5 [facility] ([facility] had a shot few weeks ago and was instructed to f/up with them if pain continues). -PT/OT- Tolerating ambulation well with walker (has a walker at home) Benign prostatic hypertrophy: -On Flomax. -Some issues with micturition and supposed to follow with urology at [place]. -No symptoms -Partially positive urine. Urine cx- Pin point growth , reincubation. No indication of antibiotics at this point. Obstructive sleep apnea: -On CPAP at bedtime. Posttraumatic stress disorder: -Continue home medications. Chronic obstructive pulmonary disease: No signs of exacerbation -continue home inhalers Hypertension: Stable On lisinopril. Gastroesophageal reflux disease: On Protonix. Deep venous thrombosis prophylaxis: Sequential compression devices for now. Full code Disposition: -Observation status -Ok to discharge home today as pain tolerable on PO narcotics, tolerating ambulation with walker. Will follow up with PCP tomorrow. [place] in [place]. Subjective Patient is feeling much better. Pain is tolerable on PO meds and tolerating ambulation with walker. He does have baseline chronic low back pain and few weeks ago got an injection in his back from [place] with whom he follows up for his back pain with prior surgeries. He states that at times when he lifts heavy objects he does experience worsening of pain, but this was without any provoking events while he was resting and woke up in the morning. Eager to be discharged Physical Exam Physical Exam: GENERAL- AAOX3, No acute distress, obesity LUNGS- Air entry bilaterally equal. No rales, rhonchi, crackles, wheezes heard. HEART- Regular rate and rhythm. No murmurs ABDOMEN- Soft, non tender, non distended, Bowel sounds heard. EXTREMITIES- Good peripheral pulses, no edema NEUROMUSCULAR- AAOX3, power5/5 all extremities, cranial nerves intact BACK -point tenderness in lower spinal region. Results & Data Vital Signs (Past 12 Hours) Vital Signs Temp Pulse Resp BP Pulse Ox 10/07/18 07:04 36.3 C L 53 L 18 172/95 H 93 (1) DDD (degenerative disc disease) Spinal region: lumbar Qualified Code(s): M51.36 - Other intervertebral disc degeneration, lumbar region
--- NOTE | 2018-10-07 12:59 | Discharge Summary ---
Date of Service October 07, 2018 Admission HPI Per Admitting Provider HISTORY OF PRESENT ILLNESS: A 73-year-old male with past medical history significant for COPD, PTSD, obstructive sleep apnea, hypertension, BPH, history of back surgeries x3 at [facility] in [place], presents with severe back pain. The patient says that today morning he woke up with severe back pain, moving his legs , trying to ambulate makes it worse, initially had problem to get up, finally was able to hold things and go to bathroom. No incontinence of urine or stools. The patient has trouble urinating for some time. He feels like a burning sensation before he micturates and after that he does not feel like it is getting emptied fully and he has an appointment with [facility]. Denies any hematuria. Normal bowel movements. No blood in stools or black stools. He has a chronic cough, brings some yellowish phlegm once in a while and he has shortness of breath on exertion, he could not walk far because of his back pain and his COPD. He quit smoking 50 years ago. Denies any headache. He has some issues with left eye vision and is following with [facility]. No sore throat, no difficulty swallowing. Appetite is okay. No chest pain, no nausea, no vomiting, no abdominal pain. Currently resting comfortably and hemodynamically stable. Principal Diagnosis 1. Intractable Back pain, acute on chronic, acute conditions ruled out 2. Hx of chronic low back pain s/p multiple lumbar surgeries SECONDARY DIAGNOSIS ON DISCHARGE 1. VIK 2. BPH 3. PTSD 4. COPD 5. GERD 6. Obesity Discharge Exam GENERAL- AAOX3, No acute distress, obesity LUNGS- Air entry bilaterally equal. No rales, rhonchi, crackles, wheezes heard. HEART- Regular rate and rhythm. No murmurs ABDOMEN- Soft, non tender, non distended, Bowel sounds heard. EXTREMITIES- Good peripheral pulses, no edema NEUROMUSCULAR- AAOX3, power5/5 all extremities, cranial nerves intact BACK -point tenderness in lower spinal region. Discharge Data Allergies Allergy/AdvReac Type Severity Reaction Status Date / Time ibuprofen Allergy Unknown HIVES Verified 10/05/18 21:38 Consultations 10/05/18 22:29 Consult Case Management - Discharge Planning Routine Ordered Studies 10/05/18 18:02 CT abd pelvis wo con Stat CT lumbar spine wo con Stat 10/05/18 22:29 MR lumbar spine wo/w con Routine Hospital Course (1) Intractable back pain: (2) DDD (degenerative disc disease): Patient is a 73-year-old male with history of COPD, PTSD, obstructive sleep apnea, hypertension, BPH, history of back surgeries x3 at [facility] in [place], comes to ED with complaint of severe back pain/worsening ambulatory dysfunction. Intractable back pain: Improved History of back surgeries x 3 at [facility] in [place], comes with worsening of back pain leading to ambulatory dysfunction. No trauma or triggering events . States that he does have chronic low back pain which exacerbates with heavy weight lifting, but recently he did not lift any thing heavy. Few weeks ago he was at the [place] for an injection for pain in his lower back. Probably exacerbation of underlying chronic back pain, acute issues ruled out - Improved with pain meds/prednisone -CAT scan of lumbar spine/ MRI Spine with no acute findings. Posterior lumbar fusion of L5-S1, no hardware complication, suspected degenerative changes at L4- 5. No disc bulge or cervical canal stenosis. CT of abdomen and pelvis - chronic bladder outlet obstruction, right nephrolithiasis, subacute fractures of several left ribs. -Using only PO narcotics. Will discharge on percocet PRN and Prednisone day 3/5 [facility] (patient had a shot few weeks ago and was instructed to f/up with them if pain continues). -PT/OT- Tolerating ambulation well with walker (has a walker at home) Benign prostatic hypertrophy: -On Flomax. -Some issues with micturition and supposed to follow with urology at [place]. -No symptoms -Partially positive urine. Urine cx- Pin point growth , reincubation. No indication of antibiotics at this point. Obstructive sleep apnea: -On CPAP at bedtime. Posttraumatic stress disorder: -Continue home medications. Chronic obstructive pulmonary disease: No signs of exacerbation -continue home inhalers Hypertension: Elevated, but repeat one is normal 120s On lisinopril. Gastroesophageal reflux disease: On Protonix. Deep venous thrombosis prophylaxis: Sequential compression devices for now. Full code Disposition: -Observation status -Ok to discharge home today as pain tolerable on PO narcotics, tolerating ambulation with walker. Will follow up with PCP tomorrow. Sees a doctor in [place] for injections in back. Total Time Total Time Spent Total Time Spent (In Minutes): 25 minutes Discharge Plan Discharge Items Patient Disposition: Home - Self-Care Reason For Visit: INTRACTABLE BACK PAIN Discharge Diagnosis: Intractable Back Pain, Acute conditions ruled out Discharge Goals: Decrease discomfort Activity: As commented below Activity Comment: Activity as tolerated, Use assistive device - walker Lifting: Gradually increase as tolerated Non-emergency contact: Primary Care Provider Call non-emergency contact if: your symptoms worsen Follow-up/Referrals: PCP,NO [Primary Care Provider] - ([facility] - [facility] follow up appt date and time) Diet: Low Fat and Low Sodium (2gm) Addtl Provider Instructions: You were admitted to the hospital for acute on chronic low back pain. You had IV pain medications, steroids. You had multiple test imaging studies- CT abd/pelvis, CT lumbar spine and MRI lumbar spine- subacute fractures of several left ribs, but no new fracture, no disc herniation, central canal stenosis. MEDICATION CHANGES 1. Percocet 1 tablet every 6 hours as needed for moderate to severe pain 2. Tylenol 650 mg every 4-6 hours for mild pain . (Do not exceed acetaminophen dose to more than 4 gram a day as percocet also contains acetaminophen) 3. New medication- Prednisone 40 mg x 3 more days Follow up with [place] doctor tomorrow Prescriptions: New prednisone 20 mg Tablet 40 mg PO DAILY 3 Days Qty: 6 RF: 0 oxycodone-acetaminophen [Percocet] 5-325 mg Tablet 1 tab PO Q6H PRN (Reason: MODERATE TO SEVERE PAIN) 5 Days Qty: 15 RF: 0 Continued gabapentin 300 mg Capsule 300 mg PO TID RF: 0 lisinopril 10 mg Tablet 10 mg PO DAILY RF: 0 clonazepam 0.5 mg Tablet 0.5 mg PO BID RF: 0 sertraline 100 mg Tablet 100 mg PO BID RF: 0 bupropion HCl 150 mg Tablet Extended Release 24 Hr 150 mg PO QAM RF: 0 trazodone 300 mg Tablet 300 mg PO HS RF: 0 pantoprazole 40 mg Tablet,Delayed Release (Dr/Ec) 40 mg PO DAILY RF: 0 Symbicort 160-4.5 mcg/actuation Hfa Aerosol Inhaler 1 puff INHALATION BID PRN (Reason: Shortness Of Breath) RF: 0 Spiriva with HandiHaler 18 mcg Capsule, W/Inhalation Device 1 cap INHALATION DAILY PRN (Reason: Shortness Of Breath) RF: 0 fluticasone propionate 50 mcg/actuation [place],Suspension 2 spray INTRANASAL DAILY PRN (Reason: Allergy Symptoms) RF: 0 tamsulosin [Flomax] 0.4 mg Capsule 0.4 mg PO QPM RF: 0 Stand-Alone Forms: [facility] Discharge Orders: Discharge Order (Routine); Ordered 10/07/18 Ordered By: Luz Billingsley Admission Data Admit Date/Time: 10/05/18 21:31 Attending Provider: Luz Billingsley Admit Provider: John Paul Peña Primary Care Provider: PCP,NO Service: Surgical Services
== END 2018-10-07 14:23 | disposition home or self-care (01) ==
LOC: ED 16:57 → 3N 16:57

== ENCOUNTER 2019-05-26 00:28 | Inpatient (IN) ==
--- NOTE | 2019-05-26 00:33 | Emergency Department Note ---
Impression & Plan Closed fracture dislocation of ankle, Alcohol intoxication, Fall ED Provider Note NAME: EDWARD RAMIREZ AGE: 73 SEX: M ARRIVES VIA: Ambulance INFORMANT: Patient ED PROVIDER(S): Jenelle Ortiz DO CHIEF COMPLAINT: Right ankle pain PLAN: Disposition: The patient was admitted to the [facility] service with orthopedics consult MEDICAL DECISION MAKING: This is a 73-year-old male patient who presents to the emergency department after falling at a friend's house tonight and suffering a fracture dislocation of the right ankle. Upon presentation to the emergency department, there was obvious tenting of the skin secondary to significant dislocation of the tibia from the ankle mortise. The fracture dislocation was emergently reduced and the ankle was placed into Ortho-Glass splinting material. The patient had no other significant traumatic injuries from the fall. The patient was intoxicated and was observed here in the emergency department for some time. I did not feel that the patient could safely be discharged with crutches or a walker and have outpatient orthopedics follow-up for surgery and I discussed the case with the [facility] service for admission to the hospital and orthopedic consultation. Triage Nursing notes reviewed and agree them. Additional history obtained from EMS Prior medical records reviewed Vital Signs: reviewed and unremarkable Differential diagnosis: Open fracture of the right ankle; fracture dislocation; proximal tibia fracture; head injury; C-spine fracture ER treatment provided: Emergent reduction of the right ankle; IV fentanyl, IV Dilaudid, IV Zofran, oral Percocet Diagnostics interpreted by me: ECG: Normal sinus rhythm at [address] segment elevation or signs of ischemia. There was no ectopy. There was a prolonged QTC at 479 ms. Cardiac Monitoring: Normal sinus rhythm at 66 Laboratory studies: See below Imaging studies: Right ankle: Obvious fracture dislocation of the right ankle-disruption of the ankle mortise with fibular fracture HPI: 73/M arrives for evaluation of severe right ankle pain after a fall. The patient was with his tonight at a friend's house drinking alcohol. When the patient went to stand up to leave the home, he became unsteady on his feet and initially fell into a potted plant and then swayed the other way and fell into a china cabinet. He suffered a significant injury to the right ankle. EMS noted that the ankle was significantly deformed but did find a palpable pulse in the foot and noted capillary refill which was slow. The patient denied injuring any other part of his body during this fall. He did not strike his head or lose consciousness. The patient denies being an alcoholic. ROS: See above HPI for pertinent positives & negatives. A total of 10 systems reviewed and were otherwise negative. 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 He does not withdraw from alcohol if he does not drink. He does use chewing tobacco. HOME MEDICATIONS:See Below ALLERGIES:See Below VITALS:Stable PHYSICAL EXAMINATION: HEENT: Head - normocephalic and atraumatic. Pupils are equal, round, and reactive to light. Extraocular eye muscles are intact and sclera are anicteric. Ears - bilaterally patent canals with no evidence of hemotympanum. Nose - moist nasal mucosa without evidence of trauma or discharge. Mouth - moist buccal mucosa with no trauma to the teeth or signs of malocclusion. Neck: The neck is supple and there is no pain to palpation over the posterior cervical spine and no obvious step-offs or deformities. There is no JVD or tracheal deviation. Chest: There are no signs of deformities, contusions or abrasions to the chest wall. There is no obvious crepitus or paradoxical chest rise. Heart: Regular, rate, and rhythm. There is a normal S1 and S2 with no murmurs, clicks, or gallops appreciated. Lungs: Clear to auscultation bilaterally with no wheezes, rales, or rhonchi. Abdomen: Soft, protuberant, completely nontender, nondistended, with good bowel sounds. There is no sign of trauma such as contusions, abrasions or penetrations. There are no palpable pulsatile masses or hepatosplenomegaly. There is no guarding, rigidity, or rebound noted. Pelvis: Stable to rock and compression. Extremities: There is obvious deformity noted to the right ankle with significant/severe tenting of the skin over the anterior/lateral aspect of the ankle from protrusion of the tibia. There was a palpable dorsalis pedis pulse with capillary refill in the great toe of 4 to 5 seconds. Neuro: The patient is awake and alert and easily able to follow commands. Muscle strength is 5 out of 5 in all 4 extremities. Otherwise, neuro exam is unremarkable. ED COURSE: 12:35: The patient was evaluated in room B9. A complete history and physical was performed. The Anuj splint was removed from the right lower extremity. The patient was given 50 mcg of IV fentanyl. A quick portable x-ray 2 view was obtained of the right ankle. I was quite concerned about the viability of the skin overlying this dislocation. A reduction procedure was performed and the ankle was adequately reduced. Please see procedure note. The ankle was placed into Ortho-Glass splinting material and post reduction films were obtained. Laboratory studies were drawn. An order was placed for continuous cardiac monitoring. The patient remained in a normal sinus rhythm at a rate of 74. 0120: I discussed the case with the patient's and kept her abreast of the situation. 0130: I checked in on the patient he was much more comfortable. The patient was given a subsequent oral dose of Percocet while here in the emergency department waiting time to sober up. The patient's pain persisted and he was given an dose of IV Dilaudid and IV Zofran which only temporarily treated his discomfort. I then discussed the case with the [facility] hospitalist who will evaluate for further management. Procedures: Right ankle reduction- Prehospital splint was removed. The patient had capillary refill in the great toe that was 4-5 seconds with diminished sensation to the tips of his toes. He did have a palpable strong dorsalis pedis pulse prior to reduction. Nursing staff applied stabilization at the patient's proximal tib-fib. Significant caudad traction was applied and the ankle was rotated. the ankle was easily reduced and more anatomically aligned. The capillary refill decreased to 3 seconds in the great toe and he had improved sensation to the tips of his toes. Dorsalis pedal pulses remained strong in that foot. Posterior and stirrup Ortho-Glass splinting material was applied to that lower extremity. Jenelle Ortiz DO Past Med/Surg History Medical History (Updated 05/26/19 @ 05:33 by Jenelle Ortiz DO) Asthma (Chronic) BPH (benign prostatic hyperplasia) (Chronic) Diverticulitis HTN (hypertension) (Chronic) MRSA (methicillin resistant Staphylococcus aureus) (Chronic) negative nasal swab on 06/24/15 and 10/05/18 VIK on CPAP (Chronic) PTSD (post-traumatic stress disorder) (Chronic) do not wake patient by touching, wake patient by saying name Surgical History (Updated 10/06/18 @ 20:48 by Brittany Jc RN) History of back surgery (Chronic) back surgery x3 at [facility] History of intestinal surgery (Chronic) Social History Preferred Language: Maltese Communication Ability: Effective Collar Separator Required: No Beliefs That Will Affect Care: None marital status: Current Living Situation: Spouse Feels Safe at Home: Yes Smoking Status: Never smoker Tobacco Type: smokeless tobacco ; Hx Alcohol Use: Yes Hx Substance Use: No Allergies Allergies Allergy/AdvReac Type Severity Reaction Status Date / Time ibuprofen Allergy Unknown HIVES Verified 10/05/18 21:38 Home Meds Home Medications Medication Instructions Recorded Confirmed Spiriva with HandiHaler 1 cap INHALATION DAILY PRN 11/30/17 05/26/19 bupropion HCl 150 mg PO QAM 11/30/17 05/26/19 clonazepam 0.5 mg PO DAILY 11/30/17 05/26/19 gabapentin 600 mg PO TID 11/30/17 05/26/19 lisinopril 10 mg PO DAILY 11/30/17 05/26/19 pantoprazole 40 mg PO DAILY 11/30/17 05/26/19 sertraline 100 mg PO BID 11/30/17 05/26/19 trazodone 300 mg PO HS 11/30/17 05/26/19 tamsulosin [Flomax] 0.4 mg PO QPM 10/05/18 05/26/19 atorvastatin 10 mg PO HS 05/26/19 05/26/19 budesonide-formoterol 2 puff INHALATION BID 05/26/19 05/26/19 cetirizine 10 mg PO HS PRN 05/26/19 05/26/19 meloxicam 15 mg PO DAILY 05/26/19 05/26/19 methocarbamol 1,000 mg PO QID 05/26/19 05/26/19 montelukast 10 mg PO DAILY 05/26/19 05/26/19 prazosin 5 mg PO HS 05/26/19 05/26/19 Results & Data (ED) Vital Signs Vital Signs - 24 hr 05/26/19 00:36 05/26/19 01:43 03/29/20 01:55 Temperature 36.5 C Temperature Source Oral Pulse Rate 67 Pulse Rate [Right Finger] 79 Pulse Rate from SpO2 Sensor Pulse Rhythm Regular Pulse Rhythm [Right Finger] Regular Pulse Strength Normal Pulse Strength [Right Finger] Normal Respiratory Rate 20 20 Respiratory Effort / Characteristics Non-Labored Respiratory Depth Normal Normal Blood Pressure 116/66 Blood Pressure [Right Arm] 121/53 L Blood Pressure Mean 82 Blood Pressure Mean [Right Arm] 75 Blood Pressure Position Sitting Pulse Oximetry 92 95 97 Oxygen Delivery Method Nasal Cannula Nasal Cannula Nasal Cannula Oxygen Flow Rate 2 3 Sepsis Recent Fever Within 48 Hours No Sepsis Action Taken by Nursing No Action Required 05/26/19 02:30 05/26/19 03:00 05/26/19 03:30 Temperature Temperature Source Pulse Rate 71 67 63 Pulse Rate [Right Finger] Pulse Rate from SpO2 Sensor 71 66 64 Pulse Rhythm Pulse Rhythm [Right Finger] Pulse Strength Pulse Strength [Right Finger] Respiratory Rate 19 18 19 Respiratory Effort / Characteristics Respiratory Depth Blood Pressure 121/74 115/69 130/65 Blood Pressure [Right Arm] Blood Pressure Mean 89 92 98 Blood Pressure Mean [Right Arm] Blood Pressure Position Pulse Oximetry 93 93 94 Oxygen Delivery Method Nasal Cannula Nasal Cannula Nasal Cannula Oxygen Flow Rate 3 3 3 Sepsis Recent Fever Within 48 Hours Sepsis Action Taken by Nursing 05/26/19 04:00 05/26/19 04:30 05/26/19 05:00 Temperature Temperature Source Pulse Rate 70 71 66 Pulse Rate [Right Finger] Pulse Rate from SpO2 Sensor 71 70 66 Pulse Rhythm Pulse Rhythm [Right Finger] Pulse Strength Pulse Strength [Right Finger] Respiratory Rate 17 17 15 Respiratory Effort / Characteristics Respiratory Depth Blood Pressure 111/65 123/64 115/63 Blood Pressure [Right Arm] Blood Pressure Mean 76 70 72 Blood Pressure Mean [Right Arm] Blood Pressure Position Pulse Oximetry 91 93 92 Oxygen Delivery Method Nasal Cannula Nasal Cannula Nasal Cannula Oxygen Flow Rate 4 4 4 Sepsis Recent Fever Within 48 Hours Sepsis Action Taken by Nursing 05/26/19 05:08 Temperature Temperature Source Pulse Rate Pulse Rate [Right Finger] 66 Pulse Rate from SpO2 Sensor Pulse Rhythm Pulse Rhythm [Right Finger] Pulse Strength Pulse Strength [Right Finger] Respiratory Rate 24 Respiratory Effort / Characteristics Spontaneous Labored Respiratory Depth Blood Pressure Blood Pressure [Right Arm] Blood Pressure Mean Blood Pressure Mean [Right Arm] Blood Pressure Position Pulse Oximetry 93 Oxygen Delivery Method Nasal Cannula Oxygen Flow Rate 4 Sepsis Recent Fever Within 48 Hours Sepsis Action Taken by Nursing Laboratory Data Result diagrams: 05/26/19 00:04 05/26/19 00:04 Lab Results 05/26/19 05/26/19 05/26/19 Range/Units 00:04 00:04 01:12 WBC 10.94 H (4.8-10.8) K/uL RBC 5.44 (4.7-6.1) M/uL Hgb 14.8 (14.0-18.0) g/dL Hct 46.4 (42-52) % MCV 85.3 (80-100) fL MCH 27.2 (25-34) pg MCHC 31.9 L (32-36) g/dL RDW Std Deviation 45.7 (36.4-46.3) fL RDW Coeff of Hector 14.6 H (11.5-14.5) % Plt Count 333 (130-400) K/uL MPV 11.1 H (7.4-10.4) fL Immature Gran % (Auto) 1.4 % Neut % (Auto) 61.8 % Lymph % (Auto) 25.3 % [place] % (Auto) 9.0 % Eos % (Auto) 2.1 % Baso % (Auto) 0.4 % Immature Gran # (Auto) 0.15 H (0.00-0.02) K/uL Neut # (Auto) 6.76 H (1.4-6.5) K/uL Lymph # (Auto) 2.77 (1.2-3.4) K/uL [place] # (Auto) 0.99 H (0.11-0.59) K/uL Eos # (Auto) 0.23 (0-0.5) K/uL Baso # (Auto) 0.04 (0-0.2) K/uL Sodium 135 L (136-145) mmol/L Potassium 3.5 (3.5-5.1) mmol/L Chloride 105 (98-107) mmol/L Carbon Dioxide 24 (21-32) mmol/L Anion Gap 6.0 (3-11) BUN 17 (7-18) mg/dl Creatinine 1.40 (0.6-1.4) mg/dl Est Cr Clr Drug Dosing 52.9 ml/min Est GFR ( Amer) 58.2 Est GFR (Non-Af Amer) 50.2 BUN/Creatinine Ratio 12.4 (10-20) Glucose 90 (70-99) mg/dl Calcium 8.6 (8.5-10.1) mg/dl Total Bilirubin 0.3 (0.2-1) mg/dl AST 24 (15-37) U/L ALT 26 (12-78) U/L Alkaline Phosphatase 67 (45-117) U/L Total Protein 7.1 (6.4-8.2) gm/dl Albumin 3.6 (3.4-5.0) gm/dl Globulin 3.5 (2.5-4.0) gm/dl Albumin/Globulin Ratio 1.0 (0.9-2) Ethyl Alcohol mg/dL 188.0 H (0-3) mg/dl Administered Medications Discontinued Medications Albuterol (Duoneb) 3 ml NEB NOW STA Stop: 05/26/19 04:57 Last Admin: 05/26/19 05:05 Dose: 3 ml Documented by: [id number] Fentanyl Citrate (Fentanyl Citrate) Confirm Administered Dose 100 mcg .ROUTE .[facility] ONE Stop: 05/26/19 00:44 Last Increment: 05/26/19 00:52 Dose: 75 mcg Documented by: [id number] Fentanyl Citrate (Fentanyl Citrate) 50 mcg IV NOW STA Stop: 05/26/19 00:46 Last Admin: 05/26/19 00:58 Dose: Not Given Documented by: [id number] Hydromorphone HCl (Dilaudid) 0.5 mg IV NOW STA Stop: 05/26/19 03:33 Last Admin: 05/26/19 03:37 Dose: 0.5 mg Documented by: [id number] Morphine Sulfate (Morphine Sulfate) 2 mg IV NOW STA Stop: 05/26/19 04:57 Last Admin: 05/26/19 05:03 Dose: 2 mg Documented by: [id number] Ondansetron HCl (Zofran) 4 mg IV NOW STA Stop: 05/26/19 03:33 Last Admin: 05/26/19 03:37 Dose: 4 mg Documented by: [id number] Oxycodone/Acetaminophen (Percocet 5mg/325mg) 1 tab PO NOW STA Stop: 05/26/19 02:05 Last Admin: 05/26/19 02:12 Dose: 1 tab Documented by: [id number] Discharge Plan Visit Data Chief Complaint: Fall Stated Complaint: Fall, possible ankle fracture ED Provider: Jenelle Ortiz Discharge Problem: Closed fracture dislocation of ankle, Alcohol intoxication, Fall Patient Disposition: Admitted As Inpatient Forms Stand Alone Forms: My [facility] Prescriptions Prescriptions: No Action montelukast 10 mg Tablet 10 mg PO DAILY RF: 0 meloxicam 15 mg Tablet 15 mg PO DAILY RF: 0 atorvastatin 10 mg Tablet 10 mg PO HS RF: 0 cetirizine 10 mg Tablet 10 mg PO HS PRN (Reason: Allergy Symptoms) RF: 0 prazosin 5 mg Capsule 5 mg PO HS RF: 0 methocarbamol 500 mg Tablet 1,000 mg PO QID RF: 0 budesonide-formoterol 160-4.5 mcg/actuation Hfa Aerosol Inhaler 2 puff INHALATION BID RF: 0 gabapentin 300 mg Capsule 600 mg PO TID RF: 0 lisinopril 10 mg Tablet 10 mg PO DAILY RF: 0 clonazepam 0.5 mg Tablet 0.5 mg PO DAILY RF: 0 sertraline 100 mg Tablet 100 mg PO BID RF: 0 bupropion HCl 150 mg Tablet Extended Release 24 Hr 150 mg PO QAM RF: 0 trazodone 300 mg Tablet 300 mg PO HS RF: 0 pantoprazole 40 mg Tablet,Delayed Release (Dr/Ec) 40 mg PO DAILY RF: 0 Spiriva with HandiHaler 18 mcg Capsule, W/Inhalation Device 1 cap INHALATION DAILY PRN (Reason: Shortness Of Breath) RF: 0 tamsulosin [Flomax] 0.4 mg Capsule 0.4 mg PO QPM RF: 0 Referrals Referrals: PCP,NO [Primary Care Provider] - Discharge Problem: Closed fracture dislocation of ankle Qualifiers: Encounter type: initial encounter Laterality: right Qualified Code(s): S82.891A - Other fracture of right lower leg, initial encounter for closed fracture Alcohol intoxication Qualifiers: Complication of substance-induced condition: with unspecified complication Qualified Code(s): F10.929 - Alcohol use, unspecified with intoxication, unspecified Fall Qualifiers: Encounter type: initial encounter Qualified Code(s): W19.XXXA - Unspecified fall, initial encounter
[2019-05-26] MEDS ORDERED: fentaNYL citrate 100 MCG/2 ML VIAL ONE ×2 (00:43→09:58)
[2019-05-26] MEDS ORDERED: fentaNYL citrate 100 MCG/2 ML VIAL IV STA (00:45)
[2019-05-26 01:16] LABS: Albumin Level 3.6 gm/dl (3.4-5.0); BUN Creatinine Ratio 12.4 (10-20); Calcium 8.6 mg/dl (8.5-10.1); Creatinine Clr Calc Pharmacy 52.9 ml/min; Est GFR (African American) 58.2; Est GFR (Non-African American) 50.2; Potassium 3.5 mmol/L (3.5-5.1)
[2019-05-26 01:19] LABS: Bilirubin,Total 0.3 mg/dl (0.2-1); Globulin 3.5 gm/dl (2.5-4.0); Total Protein 7.1 gm/dl (6.4-8.2)
[2019-05-26] MEDS ORDERED: OXYCODONE/ACETAMINOPHEN 5mg/325mg TAB PO STA (02:04)
[2019-05-26] MEDS ORDERED: HYDROmorphone INJ 0.5 MG/0.5 ML SYR IV STA (03:32)
[2019-05-26] MEDS ORDERED: ONDANSETRON INJ 2 MG/ML 2 ML VIAL IV STA (03:32)
[2019-05-26 04:05] LABS: Basophils # (auto) 0.04 K/uL (0-0.2); Basophils % (auto) 0.4 %; Eosinophils # (auto) 0.23 K/uL (0-0.5); Eosinophils % (auto) 2.1 %; Hematocrit (blood only) 46.4 % (42-52); Hemoglobin 14.8 g/dL (14.0-18.0); Immature Granulocytes # (auto) 0.15 K/uL (0.00-0.02); Immature Granulocytes % (auto) 1.4 %; Lymphocytes # (auto) 2.77 K/uL (1.2-3.4); Lymphocytes % (auto) 25.3 %; Mean Corpuscular Hemoglobin 27.2 pg (25-34); Mean Corpuscular Hgb Conc 31.9 g/dL (32-36); Mean Corpuscular Volume 85.3 fL (80-100); Mean Platelet Volume 11.1 fL (7.4-10.4); Monocytes # (auto) 0.99 K/uL (0.11-0.59); Neutrophils # (auto) 6.76 K/uL (1.4-6.5); Neutrophils % (auto) 61.8 %; Platelet Count 333 K/uL (130-400); RDW Coefficient of Variation 14.6 % (11.5-14.5); RDW Standard Deviation 45.7 fL (36.4-46.3); Red Blood Count 5.44 M/uL (4.7-6.1); White Blood Count 10.94 K/uL (4.8-10.8)
[2019-05-26] MEDS ORDERED: ALBUT/IPRATROP 3MG/0.5MG NEB 3 ML VIAL NEB STA (04:56)
[2019-05-26] MEDS ORDERED: MoRPHine SULFATE 2 MG/ML CARP IV STA (04:56)
--- NOTE | 2019-05-26 04:57 | History & Physical Report ---
Date of Service May 26, 2019 Assessment & Plan (1) Acute hypoxemic respiratory failure: Chronic asthmatic bronchitis with patient account of chronic cough symptoms w/ usual S OB w/note of expiratory wheezes on exam Alcoholic intoxication/narcotic administration contributory No COPD on outpatient breathing test as per patient. Rule out pulmonary hypertension given VIK hx on BiPAP Traumatic right ankle fracture secondary to mechanical fall from intoxication sp partial successful closed reduction at the ER hypertension, stable past tobacco abuse, chronic back pain Possible alcohol abuse Medical telemetry Supplemental O2 Baseline ABG Stat nebs now TTE RE hypoxemia rule out pulmonary hypertension Orthopedics consult RE right ankle fracture N.p.o. until patient seen by Orthopedics DT precautions DVT prophylaxis. SCDs RE possible surgery Recommend pharmacologic anticoagulation once bleeding risk is deemed to be minimal and negligible pending Orthopedics evaluation. Full code Text document was generated using [employer] voice recognition software. It may contain grammatical or spelling errors. Kindly contact undersigned for clarification of any documentation item in question. History of Present Illness Primary Care Provider: [facility] History obtained from patient and records. Medical history significant for hypertension, BPH, asthma, past tobacco abuse, post-traumatic stress disorder, chronic back pain, hx MRSA, VIK on BIPAP at night. Recent confinement last September 2018 for intractable back pain. Patient was at a gathering with friends last night when he stumbled and fell onto a potted plant subsequently landing on a [employer] later onto the floor. Patient noted excruciating right ankle pain with note of obvious right ankle deformity. No head trauma/LOC/syncope/chest pain. Usual shortness of breath on exertion with junky cough symptoms attributed to his asthma for months now. No fever, chills, or flulike symptoms. O2 sats noted to be 88 on room air upon arrival at the ER. Closed reduction of dislocated right ankle fracture done at the ER under sedation. MEDICAL HISTORY: As above. No prior history of confinement/intubation for alcohol withdrawal or alcohol withdrawal seizures. SURGERIES: Partial colectomy, hernia repair, back surgery. FAMILY HISTORY: Heart disease. PERSONAL AND SOCIAL HISTORY: Past tobacco abuse. 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 Allergies Allergy/AdvReac Type Severity Reaction Status Date / Time ibuprofen Allergy Unknown HIVES Verified 10/05/18 21:38 Home Medications Home Medications Medication Instructions Recorded Confirmed Type Spiriva with HandiHaler 1 cap INHALATION DAILY PRN 11/30/17 05/26/19 History bupropion HCl 150 mg PO QAM 11/30/17 05/26/19 History clonazepam 0.5 mg PO DAILY 11/30/17 05/26/19 History gabapentin 600 mg PO TID 11/30/17 05/26/19 History lisinopril 10 mg PO DAILY 11/30/17 05/26/19 History pantoprazole 40 mg PO DAILY 11/30/17 05/26/19 History sertraline 100 mg PO BID 11/30/17 05/26/19 History trazodone 300 mg PO HS 11/30/17 05/26/19 History tamsulosin [Flomax] 0.4 mg PO QPM 10/05/18 05/26/19 History atorvastatin 10 mg PO HS 05/26/19 05/26/19 History budesonide-formoterol 2 puff INHALATION BID 05/26/19 05/26/19 History cetirizine 10 mg PO HS PRN 05/26/19 05/26/19 History meloxicam 15 mg PO DAILY 05/26/19 05/26/19 History methocarbamol 1,000 mg PO QID 05/26/19 05/26/19 History montelukast 10 mg PO DAILY 05/26/19 05/26/19 History prazosin 5 mg PO HS 05/26/19 05/26/19 History Past Med/Surg History Medical History (Updated 05/26/19 @ 06:42 by Moi Cai MD) Asthma (Chronic) BPH (benign prostatic hyperplasia) (Chronic) Diverticulitis HTN (hypertension) (Chronic) MRSA (methicillin resistant Staphylococcus aureus) (Chronic) negative nasal swab on 06/24/15 and 10/05/18 VIK on CPAP (Chronic) PTSD (post-traumatic stress disorder) (Chronic) do not wake patient by touching, wake patient by saying name Surgical History (Updated 10/06/18 @ 20:48 by Brittany Jc RN) History of back surgery (Chronic) back surgery x3 at [facility] History of intestinal surgery (Chronic) Social History Preferred Language: Turkish Communication Ability: Effective Full Time Staff Interpreter Required: No Beliefs That Will Affect Care: None marital status: Current Living Situation: Spouse Other Information That Helps Us Care for You: No Feels Safe at Home: Yes Safety Concerns: Feels Safe At This Time Smoking Status: Former smoker Tobacco Type: cigarettes ; Do You Dip or Chew Tobacco: Yes ; Second Hand Exposure: No ; Tobacco Cessation Education Requested by Patient: No Hx Alcohol Use: Yes Alcohol type: beer and hard liquor Hx Substance Use: No Review of Systems Review of Systems: As per HPI, all 10 systems reviewed, all other ROS negative Physical Exam Physical Exam: GENERAL: uncomfortable, dry cough/occ speaks in phrases, no respiratory distress, obese, pleasant SKIN: Normal color, warm HEENT: Alopecia, pink palpebral conjunctivae, no ptosis, dry buccal mucosa NECK : Supple, short neck, no tenderness CHEST : Expiratory wheezes , no tenderness HEART : RRR, no obvious murmurs ABDOMEN: distention, nontender EXTREMITIES : RLE immobilizer, no other conspicuous deformities noted NEUROLOGIC : Coherent, chronic lip asymmetry, no other gross focality Results & Data Results & Data ([facility]) Vital Signs (Past 12 Hours) Vital Signs Temp Pulse Pulse Resp BP BP Pulse Ox 05/26/19 03:30 63 19 130/65 94 05/26/19 03:00 67 18 115/69 93 05/26/19 02:30 71 19 121/74 93 05/26/19 01:55 79 20 121/53 L 97 05/26/19 01:43 95 05/26/19 00:36 36.5 C 67 20 116/66 92 Laboratory Results Laboratory Results WBC 10.94 K/uL (4.8-10.8) H 05/26/19 00:04 RBC 5.44 M/uL (4.7-6.1) 05/26/19 00:04 Hgb 14.8 g/dL (14.0-18.0) 05/26/19 00:04 Hct 46.4 % (42-52) 05/26/19 00:04 MCV 85.3 fL (80-100) 05/26/19 00:04 MCH 27.2 pg (25-34) 05/26/19 00:04 MCHC 31.9 g/dL (32-36) L 05/26/19 00:04 RDW Std Deviation 45.7 fL (36.4-46.3) 05/26/19 00:04 RDW Coeff of Hector 14.6 % (11.5-14.5) H 05/26/19 00:04 Plt Count 333 K/uL (130-400) 05/26/19 00:04 MPV 11.1 fL (7.4-10.4) H 05/26/19 00:04 Immature Gran % (Auto) 1.4 % 05/26/19 00:04 Neut % (Auto) 61.8 % 05/26/19 00:04 Lymph % (Auto) 25.3 % 05/26/19 00:04 [place] % (Auto) 9.0 % 05/26/19 00:04 Eos % (Auto) 2.1 % 05/26/19 00:04 Baso % (Auto) 0.4 % 05/26/19 00:04 Immature Gran # (Auto) 0.15 K/uL (0.00-0.02) H 05/26/19 00:04 Neut # (Auto) 6.76 K/uL (1.4-6.5) H 05/26/19 00:04 Lymph # (Auto) 2.77 K/uL (1.2-3.4) 05/26/19 00:04 [place] # (Auto) 0.99 K/uL (0.11-0.59) H 05/26/19 00:04 Eos # (Auto) 0.23 K/uL (0-0.5) 05/26/19 00:04 Baso # (Auto) 0.04 K/uL (0-0.2) 05/26/19 00:04 Sodium 135 mmol/L (136-145) L 05/26/19 00:04 Potassium 3.5 mmol/L (3.5-5.1) 05/26/19 00:04 Chloride 105 mmol/L (98-107) 05/26/19 00:04 Carbon Dioxide 24 mmol/L (21-32) 05/26/19 00:04 Anion Gap 6.0 (3-11) 05/26/19 00:04 BUN 17 mg/dl (7-18) 05/26/19 00:04 Creatinine 1.40 mg/dl (0.6-1.4) 05/26/19 00:04 Est Cr Clr Drug Dosing 52.9 ml/min 05/26/19 00:04 Est GFR ( Amer) 58.2 05/26/19 00:04 Est GFR (Non-Af Amer) 50.2 05/26/19 00:04 BUN/Creatinine Ratio 12.4 (10-20) 05/26/19 00:04 Glucose 90 mg/dl (70-99) 05/26/19 00:04 Calcium 8.6 mg/dl (8.5-10.1) 05/26/19 00:04 Total Bilirubin 0.3 mg/dl (0.2-1) 05/26/19 00:04 AST 24 U/L (15-37) 05/26/19 00:04 ALT 26 U/L (12-78) 05/26/19 00:04 Alkaline Phosphatase 67 U/L (45-117) 05/26/19 00:04 Total Protein 7.1 gm/dl (6.4-8.2) 05/26/19 00:04 Albumin 3.6 gm/dl (3.4-5.0) 05/26/19 00:04 Globulin 3.5 gm/dl (2.5-4.0) 05/26/19 00:04 Albumin/Globulin Ratio 1.0 (0.9-2) 05/26/19 00:04 Ethyl Alcohol mg/dL 188.0 mg/dl (0-3) H 05/26/19 01:12 Diagnostic Findings Right ankle x-ray as per my interpretation : Dislocated fracture, right ankle Chest x-ray as per my interpretation cardiomegaly, no infiltrate/congestion EKG as per my interpretation : Rate 70, NSR, normal axis, T wave flattening septal leads
--- NOTE | 2019-05-26 05:43 | XRay Report ---
XR ankle RT 2V CLINICAL HISTORY: fall - deformity trauma. Pain. COMPARISON: None. DISCUSSION: Oblique fracture distal fibula. Evidence for disruption of the ankle mortise. Anterior di slocation of the tibia in relation to the talus. All findings are superimposed upon what appear to be pre-existing degenerative changes. Generalized s oft tissue edema IMPRESSION: Fracture dislocation right ankle as described. Components of the findings as discussed ab ove most likely relate to pre-existing disorder combined with acute posttraumatic change.. ACT 112: Negative or not required by law. The above report was generated using voice recognition software. It may contain grammatical, syntax or spelling errors. Electronically signed by: Marcelo Chamberlain M.D. 05/26/2019 5:42 AM
--- NOTE | 2019-05-26 05:49 | XRay Report ---
XR ankle RT min 3V routine CLINICAL HISTORY: POST REDUCTION RT ANKLE COMPARISON: 05/26/2019 DISCUSSION: Mildly improved bony alignment post closed reduction. Persistent widening of the ankle mo rtise. Considerable superimposed degenerative changes throughout. There is no evidence for soft tissu e swelling. IMPRESSION: Moderate improvement in bony alignment post closed reduction. ACT 112: Negative or not required by law. The above report was generated using voice recognition software. It may contain grammatical, syntax or spelling errors. Electronically signed by: Marcelo Chamberlain M.D. 05/26/2019 5:47 AM
--- NOTE | 2019-05-26 05:55 | XRay Report ---
XR chest 1V portable CLINICAL HISTORY: low o2 dyspnea COMPARISON STUDY: 06/19/2015 FINDINGS: Moderate cardiomegaly. The lungs are clear. Diaphragms are smooth. IMPRESSION: Moderate cardiomegaly. Otherwise negative study. ACT 112: Negative or not required by law. The above report was generated using voice recognition software. It may contain grammatical, syntax or spelling errors. Electronically signed by: Marcelo Chamberlain M.D. 05/26/2019 5:54 AM
[2019-05-26] MEDS ORDERED: ALBUT/IPRATROP 3MG/0.5MG NEB 3 ML VIAL NEB PRN (06:04)
[2019-05-26] MEDS ORDERED: LORazepam 0.5 MG/1 ML VIAL IV PRN (06:04)
[2019-05-26] MEDS ORDERED: PROMETHAZINE HCL 12.5 MG in SODIUM CHLORIDE 0.9% 50 ML IV PRN (06:04)
[2019-05-26] MEDS ORDERED: CETIRIZINE HCL 10 MG TABLET PO PRN (06:04)
[2019-05-26 06:07] LABS: Base Excess ABG -4.8 mEq/L (-9-1.8); HCO3 ABG 24 mmol/L (19-24); Oxygen Saturation ABG 94.6 % (90-95); PCO2 ABG 59 mmHg (35-46); PO2 ABG 84 mmHg (80-95); pH ABG 7.22 (7.35-7.45)
[2019-05-26 06:14] LABS: Allen Test Pos (Pos)
[2019-05-26] MEDS ORDERED: PNEUMOCOCCAL POLYSACCHARIDES 25 MCG/0.5 ML VIAL/SYR IM ONE (06:28)
[2019-05-26] MEDS ORDERED: PNEUMOCOCCAL ADMINISTRATION CHARGE ONE (06:28)
[2019-05-26] MEDS ORDERED: MULTI-VITAMIN INFUSION 10 ML, THIAMINE HCL 100 MG, FOLIC ACID 1 MG in SODIUM CHLORIDE 0... IV ONE (06:30)
[2019-05-26] MEDS: OXYCODONE HCL IR 5 MG TAB (IMMEDIATE RELEASE) PO PRN ×2 (06:31→17:30)
[2019-05-26] MEDS: UMECLIDINIUM BROMIDE 62.5MCG/BLISTER 7 PUFFS/INHALER INH SCH (07:53)
[2019-05-26] MEDS: FLUTICASONE/VILANTEROL 200/25MCG 14 PUFFS/INHALER INH SCH (07:53)
--- NOTE | 2019-05-26 08:10 | Anesthesiology Consultation ---
Date of Service May 26, 2019 Assessment & Plan Chart Review Chart Review: Acceptable Risk for Surgery Consults Requested none ASA ASA3 Proposed Anesthesia Anesthesia Type: General (B/u) and MAC Spinal Risk / Benefits Reviewed With: PT / POA / Parent / Guardian, Accepts Plan and Informed Consent Obtained Additional Comments: preop duoneb ordered History Surgery Operation Date: 05/26/19 11:00 Proposed Procedures p Open Reduction Internal Fixation Ankle(Right) - Johnathon Real, Height/Weight Height: 5 ft 3 in Weight: 105 kg Allergies Allergy/AdvReac Type Severity Reaction Status Date / Time ibuprofen Allergy Unknown HIVES Verified 10/05/18 21:38 Medications Home Medications Medication Instructions Recorded Confirmed Last Taken Spiriva with HandiHaler 1 cap INHALATION DAILY PRN 11/30/17 05/26/19 Unknown bupropion HCl 150 mg PO QAM 11/30/17 05/26/19 Unknown clonazepam 0.5 mg PO DAILY 11/30/17 05/26/19 Unknown gabapentin 600 mg PO TID 11/30/17 05/26/19 Unknown lisinopril 10 mg PO DAILY 11/30/17 05/26/19 Unknown pantoprazole 40 mg PO DAILY 11/30/17 05/26/19 Unknown sertraline 100 mg PO BID 11/30/17 05/26/19 Unknown trazodone 300 mg PO HS 11/30/17 05/26/19 Unknown tamsulosin [Flomax] 0.4 mg PO QPM 10/05/18 05/26/19 Unknown atorvastatin 10 mg PO HS 05/26/19 05/26/19 Unknown budesonide-formoterol 2 puff INHALATION BID 05/26/19 05/26/19 Unknown cetirizine 10 mg PO HS PRN 05/26/19 05/26/19 Unknown meloxicam 15 mg PO DAILY 05/26/19 05/26/19 Unknown methocarbamol 1,000 mg PO QID 05/26/19 05/26/19 Unknown montelukast 10 mg PO DAILY 05/26/19 05/26/19 Unknown prazosin 5 mg PO HS 05/26/19 05/26/19 Unknown Active Medications Generic Name Dose Route Start Last Admin Trade Name Freq PRN Reason Stop Dose Admin Bupropion HCl 150 mg 05/26/19 09:00 05/26/19 08:36 Wellbutrin-Xl PO 06/25/19 08:59 Not Given QAM MARIBETH Fluticasone/Vilanterol 1 puffs 05/26/19 09:00 05/26/19 07:53 Breo Ellipta 200/25 Mcg Inh INH 06/25/19 08:59 1 puffs DAILY MARIBETH Administration Gabapentin 600 mg 05/26/19 09:00 05/26/19 08:38 Neurontin PO 06/25/19 08:59 600 mg TID MARIBETH Administration Multivitamins 10 ml/ Thiamine 1,011.2 mls @ 50 mls/hr 05/26/19 06:30 05/26/19 07:45 HCl 100 mg/ Folic Acid 1 mg/ IV 05/27/19 02:43 50 mls/hr Sodium Chloride .[id number] Administration Lisinopril 10 mg 05/26/19 09:00 05/26/19 08:38 Zestril PO 06/25/19 08:59 10 mg DAILY MARIBETH Administration Meloxicam 15 mg 05/26/19 09:00 05/26/19 08:38 Mobic PO 06/25/19 08:59 15 mg DAILY MARIBETH Administration Methocarbamol 1,000 mg 05/26/19 09:00 05/26/19 08:36 Robaxin PO 06/25/19 08:59 Not Given QID MARIBETH Oxycodone HCl 5 - 10 mg 05/26/19 06:04 05/26/19 06:31 Roxicodone Immediate Rel PO 06/09/19 06:03 10 mg Q4H PRN Administration Pain Pantoprazole Sodium 40 mg 05/26/19 09:00 05/26/19 08:38 Protonix PO 06/25/19 08:59 40 mg DAILY MARIBETH Administration Sertraline HCl 100 mg 05/26/19 09:00 05/26/19 08:38 Zoloft PO 06/25/19 08:59 100 mg BID MARIBETH Administration Umeclidinium Wickes 1 puffs 05/26/19 09:00 05/26/19 07:53 Incruse Ellipta INH 06/25/19 08:59 1 puffs DAILY MARIBETH Administration NPO Date Last Intake of Fluids: 05/25/19 Time Last Intake of Fluids: 23:59 Last Intake of Fluids Comment: Sips for AM meds Date Last Intake of Solids: 05/25/19 Time Last Intake of Solids: 23:59 Past Medical History Medical History (Updated 05/26/19 @ 09:07 by Meaghan Washington DO) Asthma (Chronic) BPH (benign prostatic hyperplasia) (Chronic) Chronic bronchitis Closed fracture dislocation of ankle (Acute) DDD (degenerative disc disease) (Acute) Diverticulitis HTN (hypertension) (Chronic) Intractable back pain (Acute) MRSA (methicillin resistant Staphylococcus aureus) (Chronic) negative nasal swab on 06/24/15 and 10/05/18 Obesity VIK on CPAP (Chronic) Noncompliant Prolonged QT interval [id number] EKG 05/25/19 PTSD (post-traumatic stress disorder) (Chronic) do not wake patient by touching, wake patient by saying name Exercise / Class Metabolic Activity II 4-5 Yardwork/Stairs/Walk up hill Past Family History Family History Other Family history non-contributory Past Surgical History Surgical History (Updated 05/26/19 @ 08:10 by Meaghan Washington DO) History of back surgery (Chronic) back surgery x3 at [facility] History of partial colectomy S/P hernia repair Past Anesthesia History No Hx of Anesthesia Complications and No Family Hx of Anesthesia Complications History of PONV No Hx of PONV and No Hx of Motion Sickness Social History Smoking Status: Former smoker tobacco type: cigarettes Do You Dip or Chew Tobacco: Yes Hx Alcohol Use: Yes Alcohol type: beer and hard liquor alcohol intake frequency: 0-2 drinks per day Hx Substance Use: No substance use type: does not use Physical Exam Vital Signs Last Vital Signs Temp 36.4 C L 05/26/19 07:22 Pulse 66 05/26/19 07:22 Resp 18 05/26/19 07:22 BP 123/72 05/26/19 07:22 Pulse Ox 91 05/26/19 07:22 Constitutional + obese ENMT Mouth: + dentition abnormality (Missing multiple lower teeth including 2 side front), + dentures (Full upper plate) and + poor dentition; no TMJ abnormality Thyromental Distance: > or= 3.5 Finger Breadths Mallampati Class: III Neck normal visual inspection, trachea midline, + short neck and + thick neck; neck extension not limited Respiratory normal respiratory effort and + cough Auscultation: + diminished lung sounds and + wheezes Cardiovascular Rate/Rhythm: regular rate and regular rhythm Heart Sounds: no murmur Musculoskeletal Spine: normal cervical ROM Extremities: + limited ROM of extremities (right ankle in splint) Neurologic moves all extremities (except operative site) Psychiatric Orientation: alert and oriented x 3 Testing Laboratory Results 05/26/19 00:04 05/26/19 00:04 Electrocardiogram Date: 05/25/19 Findings: + NSR @ (71 with flat T waves and prolonged [id number]) Chest X-Ray Date: 05/25/19 Findings: + NAD and + cardiomegaly (moderate)
[2019-05-26] MEDS: BuPROPion XL 150 MG TABCR PO SCH (08:36)
[2019-05-26] MEDS: METHOCARBAMOL 500 MG TABLET PO SCH ×4 (08:36→20:53)
[2019-05-26] MEDS: lisinopriL 10 MG TAB PO SCH (08:38)
[2019-05-26] MEDS: MELOXICAM 7.5 MG TAB PO SCH (08:38)
[2019-05-26] MEDS: GABAPENTIN 600 MG TAB PO SCH ×3 (08:38→20:51)
[2019-05-26] MEDS: PANTOprazole 40 MG TAB PO SCH (08:38)
[2019-05-26] MEDS: SERTRALINE HCL 100 MG TABLET PO SCH ×2 (08:38→20:49)
[2019-05-26] MEDS ORDERED: BuPROPion XL 150 MG TABCR PO SCH (09:00)
[2019-05-26] MEDS ORDERED: ALBUT/IPRATROP 3MG/0.5MG NEB 3 ML VIAL INH PRN (09:09)
[2019-05-26] MEDS ORDERED: MoRPHine SULFATE 10 MG/ML CARP/VIAL IV PRN (09:09)
[2019-05-26] MEDS ORDERED: ePHEDrine sulfate 50 MG/ML AMP IV PRN (09:09)
[2019-05-26] MEDS ORDERED: ATROPINE SULFATE 0.1 MG/ML 10ML SYR IV PRN (09:09)
[2019-05-26] MEDS ORDERED: MEPERIDINE HCL 25 MG/ML CARP/VIAL IV PRN (09:09)
[2019-05-26] MEDS ORDERED: fentaNYL citrate 100 MCG/2 ML VIAL IV PRN (09:09)
[2019-05-26] MEDS ORDERED: DEXAMETHASONE SOD INJ 4 MG/ML VIAL IV PRN (09:09)
--- NOTE | 2019-05-26 09:19 | Orthopedic Consultation ---
Date of Consultation May 26, 2019 Assessment & Plan (1) Closed fracture dislocation of ankle: Time was spent at bedside discussing diagnosis and treatment options. He has elected to proceed with an open reduction internal fixation of the right ankle. He understands the risks, benefits, and alternatives to the procedure and has elected to proceed. A decision was made for surgery. He has been n.p.o. since his arrival in the emergency room. As long as he passes anesthesia clearance, I would like to get the ankle fixed today. He was happy to hear that. He will remain n.p.o. for now and we plan to proceed with the surgery today. Present on Admission?: Yes History of Present Illness Reason for Consultation: Right ankle fracture Attending Physician: Florentino Hills MD History of Present Illness Addison is a 73-year-old male who was at a social gathering last night. He was drinking. At the end of the night he was trying to put on his shoe when he fell over into a potted plant. He twisted his right ankle. He came immediately to the emergency room.Radiographs demonstrate a displaced bimalleolar right ankle fracture. He was admitted to the medicine service. Orthopedics was consulted to evaluate and treat the fracture. Allergies Allergy/AdvReac Type Severity Reaction Status Date / Time ibuprofen Allergy Unknown HIVES Verified 10/05/18 21:38 Home Medications Home Medications Medication Instructions Recorded Confirmed Type Spiriva with HandiHaler 1 cap INHALATION DAILY PRN 11/30/17 05/26/19 History bupropion HCl 150 mg PO QAM 11/30/17 05/26/19 History clonazepam 0.5 mg PO DAILY 11/30/17 05/26/19 History gabapentin 600 mg PO TID 11/30/17 05/26/19 History lisinopril 10 mg PO DAILY 11/30/17 05/26/19 History pantoprazole 40 mg PO DAILY 11/30/17 05/26/19 History sertraline 100 mg PO BID 11/30/17 05/26/19 History trazodone 300 mg PO HS 11/30/17 05/26/19 History tamsulosin [Flomax] 0.4 mg PO QPM 10/05/18 05/26/19 History atorvastatin 10 mg PO HS 05/26/19 05/26/19 History budesonide-formoterol 2 puff INHALATION BID 05/26/19 05/26/19 History cetirizine 10 mg PO HS PRN 05/26/19 05/26/19 History meloxicam 15 mg PO DAILY 05/26/19 05/26/19 History methocarbamol 1,000 mg PO QID 05/26/19 05/26/19 History montelukast 10 mg PO DAILY 05/26/19 05/26/19 History prazosin 5 mg PO HS 05/26/19 05/26/19 History Patient History Medical History Asthma (Chronic) BPH (benign prostatic hyperplasia) (Chronic) Chronic bronchitis Closed fracture dislocation of ankle (Acute) DDD (degenerative disc disease) (Acute) Diverticulitis HTN (hypertension) (Chronic) Intractable back pain (Acute) MRSA (methicillin resistant Staphylococcus aureus) (Chronic) negative nasal swab on 06/24/15 and 10/05/18 Obesity VIK on CPAP (Chronic) Noncompliant Prolonged QT interval BNh=954 EKG 05/25/19 PTSD (post-traumatic stress disorder) (Chronic) do not wake patient by touching, wake patient by saying name Surgical History History of back surgery (Chronic) back surgery x3 at [facility] History of partial colectomy S/P hernia repair Family History Other Family history non-contributory Social History Preferred Language: Polish Communication Ability: Effective Named Account Executive Required: No Beliefs That Will Affect Care: None marital status: Current Living Situation: Spouse Other Information That Helps Us Care for You: No Feels Safe at Home: Yes Safety Concerns: Feels Safe At This Time Smoking Status: Former smoker Tobacco Type: cigarettes ; Do You Dip or Chew Tobacco: Yes ; Second Hand Exposure: No ; Tobacco Cessation Education Requested by Patient: No Hx Alcohol Use: Yes Alcohol type: beer and hard liquor Hx Substance Use: No Review of Systems Review of Systems: All systems reviewed & are unremarkable except as noted in HPI & below Physical Exam Constitutional: WD/WN, vitals as above Eyes: PERRL, conjunctivae normal, anicteric sclerae ENMT: external ear and nose normal, oropharynx normal Neck: trachea midline, no thyromegaly Respiratory: normal respiratory effort Cardiovascular: RRR, no murmur, no edema Gastrointestinal (Abdomen): normal bowel sounds, soft, nontender, no hepatosplenomegaly Musculoskeletal: On physical examination of the right ankle, a trauma splint in place. He has a lot of pain with any motion around the ankle. He can barely wiggle his toes. There is no signs of compartment syndrome. Psychiatric: A+Ox3, euthymic affect Results & Data ([facility]) Vital Signs (Past 12 Hours) Vital Signs Temp Pulse Pulse Resp BP BP Pulse Ox 05/26/19 07:22 36.4 C L 66 18 123/72 91 05/26/19 06:08 36.4 C L 72 16 121/77 92 05/26/19 05:30 67 14 114/85 92 05/26/19 05:08 66 24 93 05/26/19 05:00 66 15 115/63 92 05/26/19 04:30 71 17 123/64 93 05/26/19 04:00 70 17 111/65 91 05/26/19 03:30 63 19 130/65 94 05/26/19 03:00 67 18 115/69 93 05/26/19 02:30 71 19 121/74 93 05/26/19 01:55 79 20 121/53 L 97 05/26/19 01:43 95 05/26/19 00:36 36.5 C 67 20 116/66 92 Laboratory Results H & H 05/26/19 Range/Units 00:04 Hgb 14.8 (14.0-18.0) g/dL Hct 46.4 (42-52) % Diagnostic Findings X-rays of the right ankle do show a unstable right bimalleolar equivalent ankle fracture. There is a fracture of the distal fibula and widening of the medial clear space. PG Care Time/CCT Total # of Minutes Spent Total Time Spent with Patient: Total time spent is greater than 50% in coordination of care (as documented) at patient's floor/unit and/or counseling patient: Coding Level of Care Code 49190 Inpt Consult Level 5 Diagnoses Closed fracture dislocation of ankle S82.891A Encounter type: initial encounter Laterality: right (1) Closed fracture dislocation of ankle Encounter type: initial encounter Laterality: right Qualified Code(s): S82.891A - Other fracture of right lower leg, initial encounter for closed frac ture
[2019-05-26] MEDS ORDERED: BUPIVACAINE 0.5 % 5 MG/1 ML PF 10ML VIAL ONE (09:23)
[2019-05-26] MEDS ORDERED: MIDAZOLAM HCL 1 MG/ML 2ML VIAL ONE (09:58)
[2019-05-26] MEDS ORDERED: PROPOFOL IV EMULSION 10 MG/ML 20 ML VIAL IV ONE (09:58)
[2019-05-26] MEDS ORDERED: LIDOCAINE HCL 2% 2 ML VIAL/AMP(20MG/ML) INFIL ONE (09:58)
[2019-05-26] MEDS ORDERED: BUPIVACAINE 0.25% 30 ML VIAL ONE (11:01)
[2019-05-26] MEDS ORDERED: EPINEPHrine INJ 1 MG/ML AMP ONE (11:01)
[2019-05-26] MEDS ORDERED: CEFAZOLIN 3000MG 72.5 ML IV ONE ×2 (11:39→11:47)
--- NOTE | 2019-05-26 12:12 | Electrocardiogram Report ---
Test Reason : Blood Pressure : / mmHG Vent. Rate : 071 BPM Atrial Rate : 071 BPM P-R Int : 174 ms QRS Dur : 078 ms QT Int : 450 ms P-R-T Axes : 035 032 049 degrees QTc Int : 489 ms Normal sinus rhythm Prolonged QT Abnormal ECG When compared with ECG of 19-JUN-2015 06:23, No significant change was found Confirmed by Fernie Quiroga ([id number]) on 05/26/2019 12:12:07 PM Referred By: REFERRED SELF Confirmed By:Fernie Quiroga
--- NOTE | 2019-05-26 12:18 | Fluoroscopy Report ---
FL ankle RT min 3V RTN CLINICAL HISTORY: RT ANKLE FX COMPARISON STUDY: 05/26/2019 FLUOROSCOPY TIME: 60 seconds NUMBER OF FLUOROSCOPIC IMAGES: 3 FINDINGS: Findings consistent with open reduction internal fixation of a distal fibular fracture. Ali gnment is anatomic. IMPRESSION: Image intensifier used for open reduction internal fixation of a fibular fracture. ACT 112: Negative or not required by law. The above report was generated using voice recognition software. It may contain grammatical, syntax or spelling errors. Electronically signed by: Marcelo Chamberlain M.D. 05/26/2019 12:17 PM
--- NOTE | 2019-05-26 12:38 | Operative Report ---
PG Post Operative Report Pre & Post Diagnosis Operation Date: 05/26/19 11:00 Pre-Op Diagnosis: Closed fracture dislocation of trimalleolar right ankle Post-Op Diagnosis: Closed fracture dislocation of trimalleolar right ankle I identified the patient and participated in the time-out.: Yes Procedure Operation Date: 05/26/19 11:00 Actual Procedures p Open Reduction Internal Fixation trimalleolar right Ankle(Right) - Johnathon Real DO Surgeon Johnathon Real DO Foam Rubber Fabricator Mao Fuchs PAC Estimated Blood Loss 10 Findings Consistent with Post-Op Diagnosis Specimens None Complications none Disposition Disposition: Recovery Room Indications Addison is a pleasant 73-year-old male who fell last night, twisting his right ankle. He came to the emergency room and radiographs demonstrated a trimalleolar fracture dislocation of the right ankle. He was reduced in the emergency room and admitted to the medical service. Orthopedics was consulted and after discussions at bedside, he elected to proceed with an open reduction and internal fixation of his right ankle. Description of Procedure On May 26, 2019 Addison was brought down from his hospital room to the preoperative holding area. The operative extremity was identified and signed. He was given a preoperative antibiotic and a spinal anesthetic. He was taken back to the operating room and laid on the table in supine position. He was put under basic sedation. The right ankle was then prepped and draped in sterile fashion. A timeout was done. The patient and the operative extremity was properly identified. The medial side was opened up first. A curvilinear incision was made over the medial malleolus. Dissection was taken down to the tip of the medial malleolus. There was a small wafer of medial malleus bone that was incarcerated within the medial joint line. This was pulled out. It was not enough to fixate, in fact, the small wafer of bone was in the way and removed. The deltoid ligament was then repaired to the medial malleolus with #0 Vicryl suture. Attention was then turned to the lateral side. A long longitudinal incision was made over the distal fibula. Dissection was taken down through the fascia and the distal fibula was exposed. It was a long oblique fracture. The fracture was then reduced with a reduction clamp. There was an anatomic anomaly with a synostosis of the tibia and the anterior fibula. I took multiple x-rays and everything seemed to be reduced nicely. A single lag screw was then placed. A Synthes 7 hole distal fibular locking plate was then placed. Locking screws were placed d istally and locking screws were then placed proximally. Appropriate length of the screws were checked under fluoroscopy. Final AP and lateral fluoroscopic images were taken and I was happy with the overall alignment of the fracture and the realignment of the ankle mortise. The posterior malleolus fracture was about 10% of the distal tibia and I did not feel that it needed to be repaired. The wounds were then irrigated. The skin was closed with 2-0 Vicryl and rabia. Surrounding soft tissues were injected with 30 cc of quarter percent Marcaine with epinephrine. He was then placed in a trauma splint. He was then transferred to a hospital bed and taken to the postanesthesia care unit in stable condition. He tolerated the procedure well. Mao Fuchs PA-C, was present for the entire procedure. He was critical for patient positioning, prepping, draping, retraction exposure, wound closure and application of sterile dressing. I attest to the content of the Intraoperative Record and any orders documented therein. Any exceptions are noted below.
--- NOTE | 2019-05-26 12:53 | Anesthesiology Progress Note ---
Date of Service May 26, 2019 Anesthesia Post Procedure Vital Signs Vital Signs: Temp Pulse Pulse Resp BP BP Pulse Ox 05/26/19 09:39 68 05/26/19 08:00 65 05/26/19 07:22 36.4 C L 66 18 123/72 91 05/26/19 06:08 36.4 C L 72 16 121/77 92 05/26/19 05:30 67 14 114/85 92 05/26/19 05:08 66 24 93 05/26/19 05:00 66 15 115/63 92 05/26/19 04:30 71 17 123/64 93 05/26/19 04:00 70 17 111/65 91 05/26/19 03:30 63 19 130/65 94 05/26/19 03:00 67 18 115/69 93 05/26/19 02:30 71 19 121/74 93 05/26/19 01:55 79 20 121/53 L 97 05/26/19 01:43 95 05/26/19 00:36 36.5 C 67 20 116/66 92 Pain Intensity Right Ankle: Pain Intensity: 7 Transfer of Care Handoff Completed per policy Notes Mental Status: alert / awake / arousable Patient Amnestic to Procedure: Yes Nausea / Vomiting: adequately controlled Pain: adequately controlled Airway Patency, RR, SpO2: stable & adequate BP & HR: stable & adequate Hydration State: stable & adequate Neuraxial Anesthesia: was administered and sensory block is resolving Anesthetic Complications: no major complications apparent and Pt Satisfied with anesthetic care
[2019-05-26] MEDS ORDERED: MAGNESIUM HYDROXIDE SUSP 30 ML UDC PO PRN (13:35)
[2019-05-26] MEDS ORDERED: ONDANSETRON INJ 2 MG/ML 2 ML VIAL IV PRN (13:35)
[2019-05-26] MEDS ORDERED: bisacodyL 10 MG SUPP PR PRN (13:35)
[2019-05-26] MEDS ORDERED: HYDROmorphone INJ 1 MG/ML SYRINGE IV PRN (13:35)
[2019-05-26] MEDS ORDERED: NALOXONE HCL 0.4 MG/1 ML VIAL/CARP IV PRN (13:35)
[2019-05-26] MEDS ORDERED: METOCLOPRAMIDE HCL INJ 5 MG/ML 2 ML VIAL IV PRN (13:35)
[2019-05-26] MEDS: SODIUM CHLORIDE 0.9% 1000ML 1,000 ML IV SCH (14:03)
[2019-05-26] MEDS: CEFAZOLIN 2000MG 2,000 MG/15 ML SYR IV SCH (18:39)
[2019-05-26] MEDS ORDERED: MoRPHine SULFATE 4 MG/ML 1 ML CARP\\VIAL IV STA (19:38)
[2019-05-26] MEDS: DOCUSATE SODIUM 100 MG CAP PO SCH (20:50)
[2019-05-26] MEDS: PRAZOSIN HCL 1 MG CAP PO SCH (20:51)
[2019-05-26] MEDS: clonazePAM 0.5 MG TAB PO SCH (20:52)
[2019-05-26] MEDS: ATORVASTATIN 10 MG TAB PO SCH (20:52)
[2019-05-26] MEDS: TAMSULOSIN HCL 0.4 MG CAP PO SCH (20:53)
[2019-05-26] MEDS: TRAZODONE HCL 100 MG TAB PO SCH (20:53)
[2019-05-26] MEDS: MONTELUKAST SODIUM 10 MG TABLET PO SCH (20:53)
[2019-05-26] MEDS: guaiFENesin 600 MG TABCR PO SCH (21:16)
[2019-05-26] MEDS: SENNA 8.6 MG TAB PO SCH (21:16)
--- NOTE | 2019-05-26 23:32 | Hospitalist Progress Note ---
Date of Service May 26, 2019 Assessment & Plan Admission and Anticipated Discharge Date Admission Date: May 26, 2019 Subjective Pt seen and examined on med floor after his R ankle ORIF surgery. Pt tolerated the procedure well. Currently lying in bed, in NAD, denies any pain. He is using suppl. O2 via NC. At baseline does not use any oxygen. Has hx of VIK and uses CPAP. Pt states that he has hx of PTSD and diff. sleeping, only able to sleep for about an hour at a time. GENERAL: elderly obese male lying in bed, in NAD on suppl. O2 via NC HEENT: NC/AT, alopecia, EOMI NECK : short thick neck, no tenderness CHEST : normal resp. effort, CTAB except for mild wheezes HEART : RRR, no obvious murmurs ABDOMEN: normal bowel sounds, soft, obese, mild distention, nontender to palp. EXTREMITIES : RLE immobilizer s/p surgery, both LEs warm, well perfused NEUROLOGIC : alert and orientedx3, answers questions appropriately, speech fluent SKIN: Normal color, warm Results & Data Results & Data ([facility]) Vital Signs (Past 12 Hours) Vital Signs Temp Pulse Pulse Resp BP BP Pulse Ox 05/26/19 22:16 100 H 22 95 05/26/19 21:00 101 H 22 95 05/26/19 20:00 37.1 C 76 18 145/80 H 90 05/26/19 18:59 36.8 C 72 19 136/71 93 05/26/19 16:09 36.9 C 75 18 105/56 L 93 05/26/19 15:47 85 05/26/19 15:05 36.6 C 87 19 126/72 92 05/26/19 14:19 37 C 82 20 143/75 H 92 05/26/19 13:49 36.6 C 66 18 135/76 94 05/26/19 13:25 36.8 C 59 L 16 97/60 L 93 05/26/19 13:15 60 15 93/53 L 96 05/26/19 13:05 59 L 15 103/63 93 05/26/19 12:55 59 L 16 86/62 L 92 05/26/19 12:45 61 18 92/59 L 90 05/26/19 12:37 36 C L 60 16 90/59 L 93
[2019-05-26] MEDS: MoRPHine SULFATE 4 MG/ML 1 ML CARP\\VIAL IV PRN (23:37)
[2019-05-27] MEDS: SODIUM CHLORIDE 0.9% 1000ML 1,000 ML IV SCH ×2 (00:27→18:02)
[2019-05-27] MEDS: CEFAZOLIN 2000MG 2,000 MG/15 ML SYR IV SCH (02:33)
[2019-05-27] MEDS: MoRPHine SULFATE 4 MG/ML 1 ML CARP\\VIAL IV PRN ×2 (03:56→08:33)
[2019-05-27] MEDS: ACETAMINOPHEN 325 MG TAB PO PRN ×3 (04:58→13:54)
[2019-05-27] MEDS ORDERED: ACETAMINOPHEN 325 MG TAB PO PRN (05:19)
[2019-05-27 06:54] LABS: Hematocrit (blood only) 42.2 % (42-52); Hemoglobin 12.9 g/dL (14.0-18.0); Mean Corpuscular Hemoglobin 27.2 pg (25-34); Mean Corpuscular Hgb Conc 30.6 g/dL (32-36); Mean Platelet Volume 11.1 fL (7.4-10.4); Platelet Count 304 K/uL (130-400); RDW Coefficient of Variation 14.8 % (11.5-14.5); RDW Standard Deviation 48.5 fL (36.4-46.3); Red Blood Count 4.74 M/uL (4.7-6.1); White Blood Count 9.41 K/uL (4.8-10.8)
[2019-05-27 07:35] LABS: BUN Creatinine Ratio 13.6 (10-20); Calcium 8.2 mg/dl (8.5-10.1); Creatinine Clr Calc Pharmacy 46.9 ml/min; Est GFR (African American) 49.9; Magnesium 1.8 mg/dl (1.8-2.4); Potassium 4.2 mmol/L (3.5-5.1)
[2019-05-27] MEDS ORDERED: dexAMETHasone 4 MG TAB PO SCH (08:00)
--- NOTE | 2019-05-27 08:05 | Orthopedic Progress Note ---
Date of Service May 27, 2019 Assessment & Plan (1) Closed fracture dislocation of ankle: Overall he is doing fairly well. He will be seen by physical therapy this morning for ambulation and and transfer exercises. He is to be nonweightbearing on his right ankle for the next 6 weeks. He is orthopedically stable for discharge when medically ready. He will follow-up in my office in 2 weeks for staple removal. He needs to keep the splint clean and dry until follow-up in the office. Full orthopedic discharge instructions were placed in the discharge summary. Present on Admission?: Yes Subjective Ed was seen and examined at bedside this morning. Overall he is doing fairly well. He has a lot of soreness in his right ankle which is to be expected. He was able to get some sleep last night. He has no complaints. Physical Exam Musculoskeletal: On physical examination of the right ankle, the splint is intact. He has active motion of his toes. Sensation is intact. His right ankle is elevated. Results & Data ([facility]) Vital Signs (Past 12 Hours) Vital Signs Temp Pulse Pulse Resp BP Pulse Ox 05/27/19 07:48 37.0 C 74 18 138/71 91 05/27/19 04:00 37.8 C H 77 20 127/73 94 05/27/19 03:10 77 16 90 05/26/19 23:57 75 05/26/19 22:16 100 H 22 95 05/26/19 21:00 101 H 22 95 PG Care Time/CCT Total # of Minutes Spent Total Time Spent with Patient: Total time spent is greater than 50% in coordination of care (as documented) at patient's floor/unit and/or counseling patient: Coding Level of Care Code None Diagnoses Closed fracture dislocation of ankle S82.891A Encounter type: initial encounter Laterality: right (1) Closed fracture dislocation of ankle Encounter type: initial encounter Laterality: right Qualified Code(s): S82.891A - Other fracture of right lower leg, initial encounter for closed fracture
--- NOTE | 2019-05-27 08:26 | Anesthesiology Progress Note ---
Date of Service May 27, 2019 Anesthesia Post Procedure Vital Signs Vital Signs: Temp Pulse Pulse Pulse Resp BP BP 05/27/19 07:48 37.0 C 74 18 138/71 05/27/19 04:00 37.8 C H 77 20 127/73 05/27/19 03:10 77 16 05/26/19 23:57 75 05/26/19 22:16 100 H 22 05/26/19 21:00 101 H 22 05/26/19 20:00 37.1 C 76 18 145/80 H 05/26/19 18:59 36.8 C 72 19 136/71 05/26/19 16:09 36.9 C 75 18 105/56 L 05/26/19 15:47 85 05/26/19 15:05 36.6 C 87 19 126/72 05/26/19 14:19 37 C 82 20 143/75 H 05/26/19 13:49 36.6 C 66 18 135/76 05/26/19 13:25 36.8 C 59 L 16 97/60 L 05/26/19 13:15 60 15 93/53 L 05/26/19 13:05 59 L 15 103/63 05/26/19 12:55 59 L 16 86/62 L 05/26/19 12:45 61 18 92/59 L 05/26/19 12:37 36 C L 60 16 90/59 L 05/26/19 09:39 68 Pulse Ox 05/27/19 07:48 91 05/27/19 04:00 94 05/27/19 03:10 90 05/26/19 23:57 05/26/19 22:16 95 05/26/19 21:00 95 05/26/19 20:00 90 05/26/19 18:59 93 05/26/19 16:09 93 05/26/19 15:47 05/26/19 15:05 92 05/26/19 14:19 92 05/26/19 13:49 94 05/26/19 13:25 93 05/26/19 13:15 96 05/26/19 13:05 93 05/26/19 12:55 92 05/26/19 12:45 90 05/26/19 12:37 93 05/26/19 09:39 Pain Intensity Right Ankle: Pain Intensity: 8 Notes Mental Status: alert / awake / arousable and participated in evaluation Patient Amnestic to Procedure: Yes Nausea / Vomiting: adequately controlled Pain: adequately controlled Airway Patency, RR, SpO2: stable & adequate Hydration State: stable & adequate Neuraxial Anesthesia: was administered and sensory block is resolving Anesthetic Complications: no major complications apparent and Pt Satisfied with anesthetic care
[2019-05-27] MEDS: FOLIC ACID 1 MG TAB PO SCH (08:38)
[2019-05-27] MEDS: FLUTICASONE/VILANTEROL 200/25MCG 14 PUFFS/INHALER INH SCH (08:38)
[2019-05-27] MEDS: DOCUSATE SODIUM 100 MG CAP PO SCH ×2 (08:38→20:13)
[2019-05-27] MEDS: MELOXICAM 7.5 MG TAB PO SCH (08:39)
[2019-05-27] MEDS: MULTIVITAMIN TAB PO SCH (08:39)
[2019-05-27] MEDS: THIAMINE HCL 100 MG TAB PO SCH (08:39)
[2019-05-27] MEDS: UMECLIDINIUM BROMIDE 62.5MCG/BLISTER 7 PUFFS/INHALER INH SCH (08:39)
[2019-05-27] MEDS: GABAPENTIN 600 MG TAB PO SCH ×3 (08:40→20:15)
[2019-05-27] MEDS: guaiFENesin 600 MG TABCR PO SCH ×2 (08:40→20:14)
[2019-05-27] MEDS: lisinopriL 10 MG TAB PO SCH (08:40)
[2019-05-27] MEDS: PANTOprazole 40 MG TAB PO SCH (08:40)
[2019-05-27] MEDS: SERTRALINE HCL 100 MG TABLET PO SCH ×2 (08:40→20:16)
[2019-05-27] MEDS: METHOCARBAMOL 500 MG TABLET PO SCH ×4 (08:41→20:12)
[2019-05-27] MEDS: BuPROPion XL 150 MG TABCR PO SCH (08:41)
--- NOTE | 2019-05-27 08:54 | Hospitalist Progress Note ---
Date of Service May 27, 2019 Assessment & Plan (1) Acute hypoxemic respiratory failure: Chronic asthmatic bronchitis with patient account of chronic cough symptoms w/ usual S OB w/note of expiratory wheezes on exam Alcoholic intoxication/narcotic administration contributory No COPD on outpatient breathing test as per patient. ABG preop (05/25) - pH 7.22, pCO2 56, pO2 84, bicarb 24, on 3L O2 - will repeat - cont. suppl. O2, may need 2 step test and home O2 if not resolving - cont. tele - cont. Nebs VIK - cont. CPAP Concern for pulmonary hypertension given VIK hx on BiPAP Echo obtained, sign. for RVSP elevated at 30-40 mm Hg Traumatic right ankle fracture secondary to mechanical fall from intoxication sp partial successful closed reduction at the ER Orthopedics consult RE right ankle fracture - pt now s/p R ankle ORIF (05/25), tolerated procedure well Hypertension - episodes of hypotension perop. - BP now slightly elevated Elevated Cr -baseline Cr ~1.3 - mildly elevated Cr from baseline - possibly secondary to hypotensive state periop - provide IVF - cont. to monitor - avoid nephrotoxic agents Anemia - acute blood loss from surg./ dilutional from IVF - current Hgb 12.9 - cont. to monitor Past tobacco abuse, Chronic back pain Possible alcohol abuse, DT precautions DVT prophylaxis. SCDs Recommend pharmacologic anticoagulation once bleeding risk is deemed to be minimal and negligible pending Orthopedics evaluation. Full code Admission and Anticipated Discharge Date Admission Date: May 26, 2019 Subjective Patient is sitting up in bed, in no acute distress, on nasal cannula. Appears sleepy, says that he slept at night with CPAP, however he tends to wake up about every hour due to his PTSD. Denies any fevers, chills, chest pain, shortness of breath, abdominal pain, nausea or vomiting. Overnight complained of increasing right ankle pain. Review of Systems Review of Systems: All systems reviewed & are unremarkable except as noted in HPI & below Constitutional: no fever and no chills Respiratory: no cough and no dyspnea (but on NC) Cardiovascular: no chest pain, no palpitations and no edema Gastrointestinal: no abdominal pain, no nausea and no vomiting Musculoskeletal: R ankle pain (post surg.) Physical Exam Physical Exam: GENERAL: elderly obese male lying in bed, in NAD on suppl. O2 via NC HEENT: NC/AT, alopecia, EOMI NECK : short thick neck, no tenderness CHEST : normal resp. effort, diffuse wheezes, no crackles or rhonchi HEART : RRR, no obvious murmurs ABDOMEN: normal bowel sounds, soft, obese, mild distention, nontender to palp. EXTREMITIES : RLE immobilizer s/p surgery, both LEs warm, well perfused NEUROLOGIC : alert and orientedx3, answers questions appropriately, speech fluent, moves extremities spont. SKIN: Normal color, warm Results & Data Results & Data ([facility]) Vital Signs (Past 12 Hours) Vital Signs Temp Pulse Pulse Resp BP Pulse Ox 05/27/19 07:48 37.0 C 74 18 138/71 91 05/27/19 04:00 37.8 C H 77 20 127/73 94 05/27/19 03:10 77 16 90 05/26/19 23:57 75 05/26/19 22:16 100 H 22 95 05/26/19 21:00 101 H 22 95 Laboratory Results 05/27/19 05/27/19 Range/Units 06:22 06:22 WBC 9.41 (4.8-10.8) K/uL RBC 4.74 (4.7-6.1) M/uL Hgb 12.9 L (14.0-18.0) g/dL Hct 42.2 (42-52) % MCV 89.0 (80-100) fL MCH 27.2 (25-34) pg MCHC 30.6 L (32-36) g/dL RDW Std Deviation 48.5 H (36.4-46.3) fL RDW Coeff of Hector 14.8 H (11.5-14.5) % Plt Count 304 (130-400) K/uL MPV 11.1 H (7.4-10.4) fL Sodium 136 (136-145) mmol/L Potassium 4.2 D (3.5-5.1) mmol/L Chloride 107 (98-107) mmol/L Carbon Dioxide 26 (21-32) mmol/L Anion Gap 3.0 (3-11) BUN 22 H (7-18) mg/dl Creatinine 1.59 H (0.6-1.4) mg/dl Est Cr Clr Drug Dosing 46.9 ml/min Est GFR ( Amer) 49.9 Est GFR (Non-Af Amer) 43.0 BUN/Creatinine Ratio 13.6 (10-20) Glucose 114 H (70-99) mg/dl Calcium 8.2 L (8.5-10.1) mg/dl Magnesium 1.8 (1.8-2.4) mg/dl Medications Administered Current Inpatient Medications Acetaminophen (Tylenol) 650 mg PO Q4H PRN PRN Reason: Pain or Fever Stop: 06/25/19 06:03 Last Admin: 05/27/19 04:58 Dose: 650 mg Documented by: Albuterol (Duoneb) 3 ml NEB Q2H PRN PRN Reason: Wheezing Stop: 06/25/19 06:03 Atorvastatin Calcium (Lipitor) 10 mg PO HS [facility] Stop: 06/25/19 20:59 Last Admin: 05/26/19 20:52 Dose: 10 mg Documented by: Bisacodyl (Dulcolax) 10 mg [place] DAILY PRN PRN Reason: Constipation Stop: 06/25/19 13:34 Bupropion HCl ([facility]-Xl) [facility] [place] Stop: 06/25/19 08:59 Last Admin: 05/27/19 08:41 Dose: 150 mg Documented by: Cetirizine HCl (Zyrtec) 10 mg PO HS PRN PRN Reason: Allergy Symptoms Stop: 06/25/19 06:03 Clonazepam (Klonopin) 0.5 mg PO HS [facility] Stop: 06/25/19 20:59 Last Admin: 05/26/19 20:52 Dose: Not Given Documented by: Docusate Sodium (Colace) 100 mg PO BID [facility] Stop: 06/25/19 20:59 Last Admin: 05/27/19 08:38 Dose: 100 mg Documented by: Fluticasone/Vilanterol (Breo Ellipta 200/25 Mcg Inh) 1 puffs INH DAILY [facility] Stop: 06/25/19 08:59 Last Admin: 05/27/19 08:38 Dose: 1 puffs Documented by: Folic Acid (Folvite) 1 mg PO QAM [facility] Stop: 06/26/19 08:59 Last Admin: 05/27/19 08:38 Dose: 1 mg Documented by: Gabapentin (Neurontin) 600 mg PO TID [facility] Stop: 06/25/19 08:59 Last Admin: 05/27/19 08:40 Dose: 600 mg Documented by: Guaifenesin (Mucinex) 600 mg PO Q12 [facility] Stop: 06/25/19 20:59 Last Admin: 05/27/19 08:40 Dose: 600 mg Documented by: Promethazine HCl 12.5 mg/ (Sodium Chloride) 50.5 mls @ 202 mls/hr IV Q6H PRN PRN Reason: Nausea And Vomiting Stop: 06/25/19 06:03 Lorazepam (Ativan) 0.5 mg in 1 mls @ 1 mls/min IV Q4H PRN PRN Reason: Anxiety/Agitation Stop: 06/25/19 06:03 Lisinopril (Zestril) 10 mg PO DAILY [facility] Stop: 06/25/19 08:59 Last Admin: 05/27/19 08:40 Dose: 10 mg Documented by: Magnesium Hydroxide (Milk Of Magnesia) 30 ml PO Q6H PRN PRN Reason: Constipation Stop: 06/25/19 13:34 Meloxicam (Mobic) 15 mg PO DAILY [facility] Stop: 06/25/19 08:59 Last Admin: 05/27/19 08:39 Dose: 15 mg Documented by: Methocarbamol (Robaxin) 1,000 mg PO QID [facility] Stop: 06/25/19 08:59 Last Admin: 05/27/19 08:41 Dose: 1,000 mg Documented by: Metoclopramide HCl (Reglan) 10 mg IV Q6H PRN PRN Reason: Nausea And Vomiting Stop: 06/25/19 13:34 Montelukast Sodium (Singulair) 10 mg PO PM [facility] Stop: 06/25/19 20:59 Last Admin: 05/26/19 20:53 Dose: 10 mg Documented by: Morphine Sulfate (Morphine Sulfate) 3 mg IV Q3H PRN PRN Reason: Pain Stop: 06/09/19 20:48 Last Admin: 05/27/19 08:33 Dose: 3 mg Documented by: Multivitamins (Multivitamin Tab) 1 tab PO QAM [facility] Stop: 06/26/19 08:59 Last Admin: 05/27/19 08:39 Dose: 1 tab Documented by: Naloxone HCl (Narcan) 0.1 mg IV Q5M PRN PRN Reason: Oversedation/Resp Depression Stop: 06/25/19 13:34 Ondansetron HCl (Zofran) 4 mg IV Q6H PRN PRN Reason: Nausea And Vomiting Stop: 06/25/19 13:34 Oxycodone HCl (Roxicodone Immediate Rel) 5 - 10 mg PO Q4H PRN PRN Reason: Pain Stop: 06/09/19 06:03 Last Admin: 05/26/19 17:30 Dose: 10 mg Documented by: Pantoprazole Sodium (Protonix) 40 mg PO DAILY [facility] Stop: 06/25/19 08:59 Last Admin: 05/27/19 08:40 Dose: 40 mg Documented by: Prazosin HCl (Prazosin Hcl) 5 mg PO HS [facility] Stop: 06/25/19 20:59 Last Admin: 05/26/19 20:51 Dose: 5 mg Documented by: Sennosides (Senokot) 17.2 mg PO HS [facility] Stop: 06/25/19 20:59 Last Admin: 05/26/19 21:16 Dose: 17.2 mg Documented by: Sertraline HCl (Zoloft) 100 mg PO BID [facility] Stop: 06/25/19 08:59 Last Admin: 05/27/19 08:40 Dose: 100 mg Documented by: Tamsulosin HCl (Flomax) 0.4 mg PO QPM [facility] Stop: 06/25/19 20:59 Last Admin: 05/26/19 20:53 Dose: 0.4 mg Documented by: Thiamine HCl (Vitamin B-1) 100 mg PO QAM [facility] Stop: 06/26/19 08:59 Last Admin: 05/27/19 08:39 Dose: 100 mg Documented by: Trazodone HCl (Desyrel) 300 mg PO HS [facility] Stop: 06/25/19 20:59 Last Admin: 05/26/19 20:53 Dose: 300 mg Documented by: Umeclidinium [place] (Incruse Ellipta) 1 puffs INH DAILY [facility] Stop: 06/25/19 08:59 Last Admin: 05/27/19 08:39 Dose: 1 puffs Documented by:
[2019-05-27] MEDS: OXYCODONE HCL IR 5 MG TAB (IMMEDIATE RELEASE) PO PRN (16:16)
[2019-05-27] MEDS ORDERED: ALBUT/IPRATROP 3MG/0.5MG NEB 3 ML VIAL NEB SCH ×2 (17:00→18:00)
[2019-05-27 17:55] LABS: Base Excess ABG -2.2 mEq/L (-9-1.8); HCO3 ABG 25 mmol/L (19-24); Oxygen Saturation ABG 91.3 % (90-95); PCO2 ABG 54 mmHg (35-46); PO2 ABG 63 mmHg (80-95); pH ABG 7.29 (7.35-7.45)
[2019-05-27 18:04] LABS: Allen Test Pos (Pos)
[2019-05-27] MEDS: clonazePAM 0.5 MG TAB PO SCH (20:12)
[2019-05-27] MEDS: TRAZODONE HCL 100 MG TAB PO SCH (20:13)
[2019-05-27] MEDS: TAMSULOSIN HCL 0.4 MG CAP PO SCH (20:13)
[2019-05-27] MEDS: ATORVASTATIN 10 MG TAB PO SCH (20:14)
[2019-05-27] MEDS: PRAZOSIN HCL 1 MG CAP PO SCH (20:15)
[2019-05-27] MEDS: SENNA 8.6 MG TAB PO SCH (20:16)
[2019-05-27] MEDS: MONTELUKAST SODIUM 10 MG TABLET PO SCH (20:16)
[2019-05-27] MEDS: ALBUT/IPRATROP 3MG/0.5MG NEB 3 ML VIAL NEB SCH (22:58)
[2019-05-28] MEDS ORDERED: clonazePAM 0.5 MG TAB PO PRN (01:12)
[2019-05-28] MEDS: ALBUT/IPRATROP 3MG/0.5MG NEB 3 ML VIAL NEB SCH ×6 (03:09→23:03)
[2019-05-28] MEDS: SODIUM CHLORIDE 0.9% 1000ML 1,000 ML IV SCH (03:43)
[2019-05-28 06:04] LABS: Hematocrit (blood only) 41.4 % (42-52); Hemoglobin 12.8 g/dL (14.0-18.0); Mean Corpuscular Hemoglobin 26.9 pg (25-34); Mean Corpuscular Hgb Conc 30.9 g/dL (32-36); Mean Corpuscular Volume 87.2 fL (80-100); Mean Platelet Volume 10.7 fL (7.4-10.4); Platelet Count 259 K/uL (130-400); RDW Coefficient of Variation 14.4 % (11.5-14.5); RDW Standard Deviation 46.3 fL (36.4-46.3); Red Blood Count 4.75 M/uL (4.7-6.1); White Blood Count 10.28 K/uL (4.8-10.8)
[2019-05-28 06:42] LABS: BUN Creatinine Ratio 17.5 (10-20); Calcium 8.9 mg/dl (8.5-10.1); Creatinine Clr Calc Pharmacy 73.2 ml/min; Est GFR (African American) 85.3; Est GFR (Non-African American) 73.6; Magnesium 1.9 mg/dl (1.8-2.4); Potassium 4.2 mmol/L (3.5-5.1)
[2019-05-28 07:08] LABS: Base Excess ABG 0.6 mEq/L (-9-1.8); HCO3 ABG 26 mmol/L (19-24); Oxygen Saturation ABG 95.3 % (90-95); PCO2 ABG 45 mmHg (35-46); PO2 ABG 76 mmHg (80-95); pH ABG 7.38 (7.35-7.45)
[2019-05-28 07:10] LABS: Allen Test Pos (Pos)
[2019-05-28] MEDS: GABAPENTIN 600 MG TAB PO SCH ×3 (09:14→20:52)
[2019-05-28] MEDS: SERTRALINE HCL 100 MG TABLET PO SCH ×2 (09:14→20:52)
[2019-05-28] MEDS: THIAMINE HCL 100 MG TAB PO SCH (09:15)
[2019-05-28] MEDS: BuPROPion XL 150 MG TABCR PO SCH (09:16)
[2019-05-28] MEDS: PANTOprazole 40 MG TAB PO SCH (09:16)
[2019-05-28] MEDS: FOLIC ACID 1 MG TAB PO SCH (09:16)
[2019-05-28] MEDS: lisinopriL 10 MG TAB PO SCH (09:17)
[2019-05-28] MEDS: MELOXICAM 7.5 MG TAB PO SCH (09:17)
[2019-05-28] MEDS: MULTIVITAMIN TAB PO SCH (09:17)
[2019-05-28] MEDS: METHOCARBAMOL 500 MG TABLET PO SCH ×4 (09:18→20:53)
[2019-05-28] MEDS: guaiFENesin 600 MG TABCR PO SCH ×2 (09:18→20:51)
[2019-05-28] MEDS: FLUTICASONE/VILANTEROL 200/25MCG 14 PUFFS/INHALER INH SCH (09:19)
[2019-05-28] MEDS: UMECLIDINIUM BROMIDE 62.5MCG/BLISTER 7 PUFFS/INHALER INH SCH (09:19)
[2019-05-28] MEDS: DOCUSATE SODIUM 100 MG CAP PO SCH ×2 (09:20→20:50)
[2019-05-28] MEDS: OXYCODONE HCL IR 5 MG TAB (IMMEDIATE RELEASE) PO PRN (09:40)
[2019-05-28] MEDS: DOXYCYCLINE HYCLATE 100 MG CAP PO SCH ×2 (09:40→20:53)
[2019-05-28] MEDS: BUDESONIDE 0.5 MG/2 ML VIAL (PULMICORT) NEB SCH ×2 (11:02→19:23)
[2019-05-28] MEDS: MoRPHine SULFATE 4 MG/ML 1 ML CARP\\VIAL IV PRN (11:53)
--- NOTE | 2019-05-28 12:24 | Hospitalist Progress Note ---
Date of Service May 28, 2019 Assessment & Plan (1) Acute hypoxemic respiratory failure: Respiratory acidosis Acute bronchitis in the setting of chronic asthma, VIK and likely Obesity hypoventilation syndrome Alcoholic intoxication/narcotic administration contributory on admission No COPD on outpatient breathing test as per patient. ABG preop (05/25) - pH 7.22, pCO2 56, pO2 84, bicarb 24, on 3L O2 ABG post op (05/26) - pH 7.29, pCO2 54, pO2 63, bicarb 25 on 3L O2 ABG - repeated this AM (05/27) now improved pH 7.38, pCO2 45 pO2 76 bicarb 26 on 3L O2 - pt started to have signif. sputum production, per nursing staff yellowish color, will obtain sputum cltx - will add doxycycline and flutter valve, cont. guaifenesin, and IS - cont cpap/bipap while sleeping - cont. suppl. O2, may need 2 step test and home O2 if not resolving - cont. tele - cont. Nebs Concern for pulmonary hypertension given VIK hx on BiPAP Echo obtained, sign. for RVSP elevated at 30-40 mm Hg Traumatic right ankle fracture secondary to mechanical fall from intoxication sp partial successful closed reduction at the ER Orthopedics consult RE right ankle fracture - pt now s/p R ankle ORIF (05/25), tolerated procedure well Hypertension - episodes of hypotension periop. - BP now slightly elevated - received amlodipine in addition to home meds yesterday - cont. to yoon monitor, and adjust meds as needed TARUN - now resolved - baseline Cr ~1.2 - mildly elevated Cr from baseline - possibly secondary to hypotensive state periop - provide IVF - cont. to monitor - currently resolved, Cr ~1 - avoid nephrotoxic agents Anemia - acute blood loss from surg./ dilutional from IVF - current Hgb 12.8, stable - cont. to monitor Past tobacco abuse, Chronic back pain Possible alcohol abuse, DT precautions DVT prophylaxis. SCDs Recommend pharmacologic anticoagulation once bleeding risk is deemed to be mini mal and negligible. Full code Admission and Anticipated Discharge Date Admission Date: May 26, 2019 Subjective Lead Etl Developer notified as pt appeared more drowsy, assessed, likely d/t pt's medications (to facilitate sleep) and pain meds. Currently pt is awake, alert and oriented, answering questions appropriately. ABG this AM improved. Pt reports that after getting breathing treatment he was able to cough up "big chunk" of mucus. Feels that his breathing is better. Reports that prior to his gathering with friends (right prior to admission), he felt completely fine and denies any hx of URI, or any other problems. Discussed with the pt that he needs to use cpap/bipap when napping even if it is during the day. Encouraged IS, will also order flutter valve. If pt continues to have sign. sputum production, will obtain sputum cltx. Will start doxy, cont. guaifenesin. Review of Systems Review of Systems: All systems reviewed & are unremarkable except as noted in HPI & below As per HPI, all 10 systems reviewed, all other ROS negative Constitutional: no fever and no chills Respiratory: + cough (productive), + dyspnea (improved) and + sputum production Cardiovascular: no chest pain and no palpitations Musculoskeletal: R ankle pain (post surg.) Physical Exam Physical Exam: GENERAL: elderly obese male lying in bed, in NAD on suppl. O2 via NC HEENT: NC/AT, alopecia, EOMI NECK : short thick neck, no tenderness CHEST : normal resp. effort, diffuse wheezes , and rhonchi HEART : RRR, no obvious murmurs ABDOMEN: normal bowel sounds, soft, obese, mild distention, nontender to palp. EXTREMITIES : RLE immobilizer s/p surgery, both LEs warm, well perfused NEUROLOGIC : alert and orientedx3, answers questions appropriately, speech fluent, moves extremities spont. SKIN: Normal color, warm Results & Data Results & Data ([facility]) Vital Signs (Past 12 Hours) Vital Signs Temp Pulse Pulse Resp BP BP Pulse Ox 05/28/19 11:09 83 20 93 05/28/19 10:59 36.9 C 88 20 159/72 H 95 05/28/19 08:00 69 05/28/19 07:36 36.5 C 82 18 164/81 H 97 05/28/19 07:11 87 18 97 05/28/19 03:52 05/28/19 03:10 60 60 17 94 05/28/19 02:49 36.5 C 62 18 141/76 H 97 05/28/19 01:37 Pulse Ox 05/28/19 11:09 05/28/19 10:59 05/28/19 08:00 05/28/19 07:36 05/28/19 07:11 05/28/19 03:52 92 05/28/19 03:10 05/28/19 02:49 05/28/19 01:37 95 Laboratory Results 05/28/19 05/28/19 05/28/19 Range/Units 06:50 05:43 05:43 WBC 10.28 (4.8-10.8) K/uL RBC 4.75 (4.7-6.1) M/uL Hgb 12.8 L (14.0-18.0) g/dL Hct 41.4 L (42-52) % MCV 87.2 (80-100) fL MCH 26.9 (25-34) pg MCHC 30.9 L (32-36) g/dL RDW Std Deviation 46.3 (36.4-46.3) fL RDW Coeff of Hector 14.4 (11.5-14.5) % Plt Count 259 (130-400) K/uL MPV 10.7 H (7.4-10.4) fL ABG pH 7.38 (7.35-7.45) ABG pCO2 45 (35-46) mmHg ABG pO2 76 L (80-95) mmHg ABG HCO3 26 H (19-24) mmol/L ABG O2 Saturation 95.3 H (90-95) % ABG Base Excess 0.6 (-9-1.8) mEq/L John Test Pos (Pos) Barometric Pressure 731.5 mm/Hg Oxygen Given 3 L Sodium 138 (136-145) mmol/L Potassium 4.2 (3.5-5.1) mmol/L Chloride 110 H (98-107) mmol/L Carbon Dioxide 27 (21-32) mmol/L Anion Gap 1.0 L (3-11) BUN 18 (7-18) mg/dl Creatinine 1.02 (0.6-1.4) mg/dl Est Cr Clr Drug Dosing 73.2 ml/min Est GFR ( Amer) 85.3 Est GFR (Non-Af Amer) 73.6 BUN/Creatinine Ratio 17.5 (10-20) Glucose 110 H (70-99) mg/dl Calcium 8.9 (8.5-10.1) mg/dl Magnesium 1.9 (1.8-2.4) mg/dl 05/27/19 Range/Units 17:42 WBC (4.8-10.8) K/uL RBC (4.7-6.1) M/uL Hgb (14.0-18.0) g/dL Hct (42-52) % MCV (80-100) fL MCH (25-34) pg MCHC (32-36) g/dL RDW Std Deviation (36.4-46.3) fL RDW Coeff of Hector (11.5-14.5) % Plt Count (130-400) K/uL MPV (7.4-10.4) fL ABG pH 7.29 L (7.35-7.45) ABG pCO2 54 H (35-46) mmHg ABG pO2 63 L (80-95) mmHg ABG HCO3 25 H (19-24) mmol/L ABG O2 Saturation 91.3 (90-95) % ABG Base Excess -2.2 (-9-1.8) mEq/L John Test Pos (Pos) Barometric Pressure 730.7 mm/Hg Oxygen Given 3 L Sodium (136-145) mmol/L Potassium (3.5-5.1) mmol/L Chloride (98-107) mmol/L Carbon Dioxide (21-32) mmol/L Anion Gap (3-11) BUN (7-18) mg/dl Creatinine (0.6-1.4) mg/dl Est Cr Clr Drug Dosing ml/min Est GFR ( Amer) Est GFR (Non-Af Amer) BUN/Creatinine Ratio (10-20) Glucose (70-99) mg/dl Calcium (8.5-10.1) mg/dl Magnesium (1.8-2.4) mg/dl Medications Administered Current Inpatient Medications Acetaminophen (Tylenol) 650 mg PO Q4H PRN PRN Reason: Pain or Fever Stop: 06/25/19 06:03 Last Admin: 05/27/19 13:54 Dose: 650 mg Documented by: Albuterol (Duoneb) 3 ml NEB Q4R [facility] Stop: 06/26/19 22:59 Last Admin: 05/28/19 11:02 Dose: 3 ml Documented by: Atorvastatin Calcium (Lipitor) 10 mg PO HS [facility] Stop: 06/25/19 20:59 Last Admin: 03/30/20 20:14 Dose: 10 mg Documented by: Bisacodyl (Dulcolax) 10 mg [place] DAILY PRN PRN Reason: Constipation Stop: 06/25/19 13:34 Budesonide (Pulmicort Respules) 0.5 mg NEB BIDR [facility] Stop: 06/27/19 09:04 Last Admin: 05/28/19 11:02 Dose: 0.5 mg Documented by: Bupropion HCl (Wellbutrin-Xl) 150 mg PO QAM [facility] Stop: 06/25/19 08:59 Last Admin: 05/28/19 09:16 Dose: 150 mg Documented by: Cetirizine HCl (Zyrtec) 10 mg PO HS PRN PRN Reason: Allergy Symptoms Stop: 06/25/19 06:03 Clonazepam (Klonopin) 0.5 mg PO HS PRN PRN Reason: insomnia Stop: 06/25/19 20:59 Docusate Sodium (Colace) 100 mg PO BID [facility] Stop: 06/25/19 20:59 Last Admin: 05/28/19 09:20 Dose: Not Given Documented by: Doxycycline Hyclate (Vibramycin) 100 mg PO BID [facility] Stop: 06/04/19 09:14 Last Admin: 05/28/19 09:40 Dose: 100 mg Documented by: Fluticasone/Vilanterol (Breo Ellipta 200/25 Mcg Inh) 1 puffs INH DAILY [facility] Stop: 06/25/19 08:59 Last Admin: 05/28/19 09:19 Dose: 1 puffs Documented by: Folic Acid (Folvite) 1 mg PO QAM [facility] Stop: 06/26/19 08:59 Last Admin: 05/28/19 09:16 Dose: 1 mg Documented by: Gabapentin (Neurontin) 600 mg PO TID [facility] Stop: 06/25/19 08:59 Last Admin: 05/28/19 09:14 Dose: 600 mg Documented by: Guaifenesin (Mucinex) 600 mg PO Q12 [facility] Stop: 06/25/19 20:59 Last Admin: 05/28/19 09:18 Dose: 600 mg Documented by: Promethazine HCl 12.5 mg/ (Sodium Chloride) 50.5 mls @ 202 mls/hr IV Q6H PRN PRN Reason: Nausea And Vomiting Stop: 06/25/19 06:03 Lorazepam (Ativan) 0.5 mg in 1 mls @ 1 mls/min IV Q4H PRN PRN Reason: Anxiety/Agitation Stop: 06/25/19 06:03 Sodium Chloride (Nss 1000ml) 1,000 mls @ 80 mls/hr IV .[id number] [facility] Stop: 06/26/19 17:14 Last Infusion: 05/28/19 07:38 Dose: 0 mls/hr Documented by: Lisinopril (Zestril) 10 mg PO DAILY [facility] Stop: 06/25/19 08:59 Last Admin: 05/28/19 09:17 Dose: 10 mg Documented by: Magnesium Hydroxide (Milk Of Magnesia) 30 ml PO Q6H PRN PRN Reason: Constipation Stop: 06/25/19 13:34 Meloxicam (Mobic) 15 mg PO DAILY [facility] Stop: 06/25/19 08:59 Last Admin: 05/28/19 09:17 Dose: 15 mg Documented by: Methocarbamol (Robaxin) 1,000 mg PO QID [facility] Stop: 06/25/19 08:59 Last Admin: 05/28/19 09:18 Dose: 1,000 mg Documented by: Metoclopramide HCl (Reglan) 10 mg IV Q6H PRN PRN Reason: Nausea And Vomiting Stop: 06/25/19 13:34 Montelukast Sodium (Singulair) 10 mg PO PM [facility] Stop: 06/25/19 20:59 Last Admin: 05/27/19 20:16 Dose: 10 mg Documented by: Morphine Sulfate (Morphine Sulfate) 3 mg IV Q3H PRN PRN Reason: Pain Stop: 06/09/19 20:48 Last Admin: 05/27/19 08:33 Dose: 3 mg Documented by: Multivitamins (Multivitamin Tab) 1 tab PO QAM [facility] Stop: 06/26/19 08:59 Last Admin: 05/28/19 09:17 Dose: 1 tab Documented by: Naloxone HCl (Narcan) 0.1 mg IV Q5M PRN PRN Reason: Oversedation/Resp Depression Stop: 06/25/19 13:34 Ondansetron HCl (Zofran) 4 mg IV Q6H PRN PRN Reason: Nausea And Vomiting Stop: 06/25/19 13:34 Oxycodone HCl (Roxicodone Immediate Rel) 5 - 10 mg PO Q4H PRN PRN Reason: Pain Stop: 06/09/19 06:03 Last Admin: 05/28/19 09:40 Dose: 5 mg Documented by: Pantoprazole Sodium (Protonix) 40 mg PO DAILY [facility] Stop: 06/25/19 08:59 Last Admin: 05/28/19 09:16 Dose: 40 mg Documented by: Prazosin HCl (Prazosin Hcl) 5 mg PO HS [facility] Stop: 06/25/19 20:59 Last Admin: 05/27/19 20:15 Dose: 5 mg Documented by: Sennosides (Senokot) 17.2 mg PO HS [facility] Stop: 06/25/19 20:59 Last Admin: 05/27/19 20:16 Dose: 17.2 mg Documented by: Sertraline HCl (Zoloft) 100 mg PO BID [facility] Stop: 06/25/19 08:59 Last Admin: 05/28/19 09:14 Dose: 100 mg Documented by: Tamsulosin HCl (Flomax) 0.4 mg PO QPM [facility] Stop: 06/25/19 20:59 Last Admin: 05/27/19 20:13 Dose: 0.4 mg Documented by: Thiamine HCl (Vitamin B-1) 100 mg PO QAM [facility] Stop: 06/26/19 08:59 Last Admin: 05/28/19 09:15 Dose: 100 mg Documented by: Trazodone HCl (Desyrel) 150 mg PO HS [facility] Stop: 06/27/19 20:59 Umeclidinium [place] (Incruse Ellipta) 1 puffs INH DAILY [facility] Stop: 06/25/19 08:59 Last Admin: 05/28/19 09:19 Dose: 1 puffs Documented by:
[2019-05-28] MEDS ORDERED: MAGNESIUM SULFATE / D5W 1 GM/100 ML BAG IV ONE (12:45)
[2019-05-28] MEDS: TRAZODONE HCL 50 MG TAB PO SCH (20:50)
[2019-05-28] MEDS: TAMSULOSIN HCL 0.4 MG CAP PO SCH (20:51)
[2019-05-28] MEDS: ATORVASTATIN 10 MG TAB PO SCH (20:51)
[2019-05-28] MEDS: PRAZOSIN HCL 1 MG CAP PO SCH (20:52)
[2019-05-28] MEDS: MONTELUKAST SODIUM 10 MG TABLET PO SCH (20:53)
[2019-05-28] MEDS: SENNA 8.6 MG TAB PO SCH (20:53)
[2019-05-29] MEDS: ALBUT/IPRATROP 3MG/0.5MG NEB 3 ML VIAL NEB SCH ×6 (03:11→22:52)
[2019-05-29] MEDS: BUDESONIDE 0.5 MG/2 ML VIAL (PULMICORT) NEB SCH (06:56)
[2019-05-29 07:17] LABS: Hematocrit (blood only) 39.6 % (42-52); Hemoglobin 12.5 g/dL (14.0-18.0); Mean Corpuscular Hgb Conc 31.6 g/dL (32-36); Mean Corpuscular Volume 85.5 fL (80-100); Mean Platelet Volume 10.9 fL (7.4-10.4); Platelet Count 331 K/uL (130-400); RDW Coefficient of Variation 14.7 % (11.5-14.5); Red Blood Count 4.63 M/uL (4.7-6.1); White Blood Count 8.82 K/uL (4.8-10.8)
[2019-05-29 07:47] LABS: BUN Creatinine Ratio 14.8 (10-20); Creatinine Clr Calc Pharmacy 83.6 ml/min; Est GFR (African American) 99.7; Magnesium 1.5 mg/dl (1.8-2.4); Potassium 3.5 mmol/L (3.5-5.1)
[2019-05-29] MEDS: DOCUSATE SODIUM 100 MG CAP PO SCH ×2 (07:50→21:15)
[2019-05-29] MEDS: FLUTICASONE/VILANTEROL 200/25MCG 14 PUFFS/INHALER INH SCH (07:50)
[2019-05-29] MEDS: BuPROPion XL 150 MG TABCR PO SCH (07:51)
[2019-05-29] MEDS: GABAPENTIN 600 MG TAB PO SCH ×3 (07:51→21:15)
[2019-05-29] MEDS: lisinopriL 10 MG TAB PO SCH (07:51)
[2019-05-29] MEDS: MELOXICAM 7.5 MG TAB PO SCH (07:51)
[2019-05-29] MEDS: PANTOprazole 40 MG TAB PO SCH (07:51)
[2019-05-29] MEDS: SERTRALINE HCL 100 MG TABLET PO SCH ×2 (07:51→21:14)
[2019-05-29] MEDS: guaiFENesin 600 MG TABCR PO SCH ×2 (07:51→21:15)
[2019-05-29] MEDS: UMECLIDINIUM BROMIDE 62.5MCG/BLISTER 7 PUFFS/INHALER INH SCH (07:51)
[2019-05-29] MEDS: THIAMINE HCL 100 MG TAB PO SCH (07:51)
[2019-05-29] MEDS: FOLIC ACID 1 MG TAB PO SCH (07:51)
[2019-05-29] MEDS: METHOCARBAMOL 500 MG TABLET PO SCH ×4 (07:51→21:15)
[2019-05-29] MEDS: MULTIVITAMIN TAB PO SCH (07:51)
[2019-05-29] MEDS: DOXYCYCLINE HYCLATE 100 MG CAP PO SCH ×2 (07:51→21:14)
[2019-05-29] MEDS: OXYCODONE HCL IR 5 MG TAB (IMMEDIATE RELEASE) PO PRN ×2 (08:55→13:37)
[2019-05-29] MEDS: HEPARIN SOD 5,000 UNIT/0.5 ML VIAL SQ SCH ×2 (13:33→21:16)
[2019-05-29] MEDS: cefTRIAXone SODIUM 2,000 MG in DEXTROSE 5% 50 ML IV SCH (14:07)
[2019-05-29] MEDS: MAGNESIUM SULFATE / D5W 1 GM/100 ML BAG IV SCH ×2 (14:38→16:29)
--- NOTE | 2019-05-29 14:58 | Hospitalist Progress Note ---
Date of Service May 29, 2019 Assessment & Plan (1) Acute hypoxemic respiratory failure: Acute hypoxemic respiratory failure: Possible secondary to bronchitis? Chest x-ray on admission 05/26/2019, showed no infiltration or effusion History of chronic asthma/obstructive sleep apnea likely obesity hypoventilation syndrome Required supplemental oxygen on admission ABG preop (05/25) - pH 7.22, pCO2 56, pO2 84, bicarb 24, on 3L O2-possible due to elevated alcohol intoxication/narcotic meds? ABG post op (05/26) - pH 7.29, pCO2 54, pO2 63, bicarb 25 on 3L O2 ABG - (05/27) improved pH 7.38, pCO2 45 pO2 76 bicarb 26 on 3L O2 This morning not requiring supplemental O2, but gets significantly short of breath with minimum activity Continues to have productive cough Sputum culture: Normal anai Gram stain Gram-positive cocci, few gram-negative bacilli, Patient was ordered for doxycycline, will add Rocephin - cont cpap/bipap while sleeping Continue scheduled nebulizer treatment Pulmonology consult requested Shortness of breath/hypoxia/rule out PE Echo obtained, shows pulmonary hypertension RVSP elevated at 30-40 mm Hg Patient had recent fall with right ankle fracture status post ORIF Has been bedbound for last 3-[address] chest with contrast to assess for PE will order lower extremity Doppler rule out DVT Traumatic right ankle fracture secondary to mechanical fall from intoxication Orthopedics consult RE right ankle fracture - pt now s/p R ankle ORIF (05/25), tolerated procedure well -Patient is nonweight bearing on right ankle for next 6 weeks Orthopedics follow-up in [facility] in 2 weeks for staple removal Need to keep his right foot splint clean and dry until follow-up in the office - episodes of hypotension periop. - BP now slightly elevated - received amlodipine in addition to home meds yesterday - cont. to yoon monitor, and adjust meds as needed TARUN - now resolved - baseline Cr ~1.2 - mildly elevated Cr from baseline on admission - possibly secondary to hypotensive state periop Given IV fluids - cont. to monitor -Creatinine improved to 1 We will DC NSAID/Mobic patient's home medication Anemia - acute blood loss from surg./ dilutional from IVF - current Hgb 12.8, stable - cont. to monitor Past tobacco abuse, Chronic back pain Alcohol abuse/intoxication No evidence of withdrawal Patient is counseled to limit alcohol intake Strongly advised to observe social distancing during virus pandemic: Patient was drinking at a gathering at friend's house got intoxicated fell and broke his right ankle Patient verbalized understanding Recommend pharmacologic anticoagulation once bleeding risk is deemed to be minimal and negligible. Full code DVT prophylaxis: Subcu heparin Disposition: Expected to be discharged home when medically stable Update given to patient's She voiced concern regarding patient's ongoing cough, respiratory distress, wondering if he should be tested for COVID-19 Patient does not have any significant exposure-visited [place] 2 weeks ago Has been afebrile, normal x-ray on admission Does not fit CDC criteria for COVID 19 testing updated that pt is being treated with pulmonary support -Neb tx / empiric treatment for URI/bronchitis family updated regarding social distancing-due to viral pandemic Admission and Anticipated Discharge Date Admission Date: May 26, 2019 Subjective Patient seen at bedside, Continues to complain of being very short of breath, orthopnea, dyspnea on exertion At present in room air Productive cough, associated with shortness of breath complains of chest pain secondary to coughing No temperature spike or fever since admission Review of Systems Review of Systems: All systems reviewed & are unremarkable except as noted in HPI & below Constitutional: no fever, no chills and no body aches Respiratory: + cough, + chest congestion, + dyspnea, + dyspnea on exertion, + pain with cough, + stopping breathing during sleep (History of obstructive sleep apnea, on CPAP at night), + sputum production and + wheezing Cardiovascular: + chest pain (Due to coughing), + dyspnea on exertion and + orthopnea; no dyspnea at rest, no paroxysmal nocturnal dyspnea, no palpitations and no edema Physical Exam Constitutional: WD/WN, vitals as above no acute distress Eyes: PERRL, conjunctivae normal, anicteric sclerae ENMT: external ear and nose normal, oropharynx normal Neck: trachea midline, no thyromegaly Respiratory: + cough; no respiratory distress Auscultation: + rales, + rhonchi and + wheezes Cardiovascular: Rate/Rhythm: regular rate and regular rhythm Extremities: normal capillary refill; no pedal edema and no edema Gastrointestinal (Abdomen): Inspection/Auscultation: normal bowel sounds Percussion/Palpation: abdomen soft; abdomen nontender Musculoskeletal: no cyanosis or clubbing, extremities motor strength 5/5 Skin: no rashes, warm and dry Neurologic: PERRL, EOMI, accommodation nl, no face palsy, no dysarthria Psychiatric: A+Ox3, euthymic affect Results & Data Results & Data ([facility]) Vital Signs (Past 12 Hours) Vital Signs Temp Pulse Pulse Resp BP BP Pulse Ox 05/29/19 11:29 36.8 C 82 20 142/72 H 91 05/29/19 11:04 76 14 91 05/29/19 08:00 80 05/29/19 07:18 37.1 C 84 18 177/84 H 177/89 H 90 05/29/19 06:58 74 18 94 05/29/19 02:52 37.2 C 56 L 18 167/77 H 96
[2019-05-29] MEDS ORDERED: FUROSEMIDE 20 MG in SYRINGE 0 ML IV ONE (15:00)
[2019-05-29] MEDS ORDERED: IOVERSOL 100ml IV PRN ×2 (15:29)
--- NOTE | 2019-05-29 15:53 | CT Scan Report ---
CT angio chest PE protocol CT DOSE: 848.16 mGy.cm HISTORY: Chest pain PE TECHNIQUE: Multiaxial CT images of the chest were performed following the intravenous administration of contrast to evaluate the pulmonary arteries. Maximal intensity projection images were also obtaine d. A dose lowering technique was utilized adhering to the principles of ALARA. COMPARISON STUDY: None. FINDINGS: There is a normal caliber thoracic aorta with no evidence for dissection. There is no evide nce for pulmonary embolus. No pleural effusions. No pneumothorax. The liver and spleen are unremarkab le. No mediastinal or hilar lymphadenopathy. The central airways are patent. The lungs are clear. Min imal posterior pleural thickening considered chronic. Degenerative change thoracic spine. IMPRESSION: No evidence for pulmonary embolus. The lungs are grossly clear. ACT 112: Negative or not required by law. The above report was generated using voice recognition software. It may contain grammatical, syntax or spelling errors. Electronically signed by: Marcelo Chamberlain M.D. 05/29/2019 3:52 PM
--- NOTE | 2019-05-29 16:13 | Ultrasound Report ---
BILATERAL LOWER EXTREMITY VENOUS DOPPLER HISTORY: Bilateral leg pain. rule out DVT COMPARISON STUDY: None. FINDINGS: There is normal compressibility, flow, and augmentation within the visualized bilateral low er extremity deep venous systems. Of note, the right calf vessels are unable to be visualized due to the patient's overlapping cast. IMPRESSION: No DVT within the visualized right or left lower extremity. ACT 112: Negative or not required by law. Electronically signed by: Will Barry M.D. 05/29/2019 4:12 PM
[2019-05-29 17:54] LABS: D Dimer 960 ug/L FEU (0-500)
[2019-05-29] MEDS: MAGNESIUM OXIDE 400 MG TAB PO SCH (21:13)
[2019-05-29] MEDS: TRAZODONE HCL 50 MG TAB PO SCH (21:14)
[2019-05-29] MEDS: MONTELUKAST SODIUM 10 MG TABLET PO SCH (21:14)
[2019-05-29] MEDS: TAMSULOSIN HCL 0.4 MG CAP PO SCH (21:14)
[2019-05-29] MEDS: ATORVASTATIN 10 MG TAB PO SCH (21:14)
[2019-05-29] MEDS: PRAZOSIN HCL 1 MG CAP PO SCH (21:14)
[2019-05-29] MEDS: SENNA 8.6 MG TAB PO SCH (21:15)
[2019-05-29 22:47] LABS: Adenovirus PCR Not Detected (NotDetected); Bordetella parapertussis PCR Not Detected (NotDetected); Bordetella pertussis PCR Not Detected (NotDetected); Chlamydia pneumoniae PCR Not Detected (NotDetected); Coronavirus 229E PCR Not Detected (NotDetected); Coronavirus HKU1 PCR Not Detected (NotDetected); Coronavirus NL63 PCR Not Detected (NotDetected); Coronavirus OC43PCR Not Detected (NotDetected); Human Metapneumovirus PCR Not Detected (NotDetected); Influenza A PCR Not Detected (NotDetected); Influenza B PCR Not Detected (NotDetected); Mycoplasma pneumoniae PCR Not Detected (NotDetected); Parainfluenza Virus 1 PCR Not Detected (NotDetected); Parainfluenza Virus 2 PCR Not Detected (NotDetected); Parainfluenza Virus 3 PCR Not Detected (NotDetected); Parainfluenza Virus 4 PCR Not Detected (NotDetected); Respiratory Syncytial VirusPCR Not Detected (NotDetected); Rhinovirus/Enterovirus PCR Not Detected (NotDetected)
[2019-05-30] MEDS: ALBUT/IPRATROP 3MG/0.5MG NEB 3 ML VIAL NEB SCH ×6 (02:19→23:29)
[2019-05-30] MEDS: HEPARIN SOD 5,000 UNIT/0.5 ML VIAL SQ SCH ×3 (06:15→22:13)
[2019-05-30] MEDS: DOXYCYCLINE HYCLATE 100 MG CAP PO SCH ×2 (06:33→18:49)
[2019-05-30] MEDS: ACETAMINOPHEN 325 MG TAB PO PRN ×3 (08:24→19:54)
[2019-05-30] MEDS: FLUTICASONE/VILANTEROL 200/25MCG 14 PUFFS/INHALER INH SCH (08:24)
[2019-05-30] MEDS: GABAPENTIN 600 MG TAB PO SCH ×3 (08:25→20:32)
[2019-05-30] MEDS: UMECLIDINIUM BROMIDE 62.5MCG/BLISTER 7 PUFFS/INHALER INH SCH (08:25)
[2019-05-30] MEDS: BuPROPion XL 150 MG TABCR PO SCH (08:26)
[2019-05-30] MEDS: METHOCARBAMOL 500 MG TABLET PO SCH ×2 (08:26→12:09)
[2019-05-30] MEDS: guaiFENesin 600 MG TABCR PO SCH ×2 (08:26→20:32)
[2019-05-30] MEDS: FOLIC ACID 1 MG TAB PO SCH (08:26)
[2019-05-30] MEDS: DOCUSATE SODIUM 100 MG CAP PO SCH ×2 (08:26→20:30)
[2019-05-30] MEDS: THIAMINE HCL 100 MG TAB PO SCH (08:27)
[2019-05-30] MEDS: MULTIVITAMIN TAB PO SCH (08:27)
[2019-05-30] MEDS: MAGNESIUM OXIDE 400 MG TAB PO SCH ×2 (08:27→20:31)
[2019-05-30] MEDS: SERTRALINE HCL 100 MG TABLET PO SCH ×2 (08:27→20:30)
[2019-05-30] MEDS: lisinopriL 10 MG TAB PO SCH (08:27)
[2019-05-30] MEDS: PANTOprazole 40 MG TAB PO SCH (08:27)
[2019-05-30] MEDS: OXYCODONE HCL IR 5 MG TAB (IMMEDIATE RELEASE) PO PRN (12:08)
[2019-05-30] MEDS: cefTRIAXone SODIUM 2,000 MG in DEXTROSE 5% 50 ML IV SCH (13:05)
[2019-05-30] MEDS ORDERED: METHOCARBAMOL 500 MG TABLET PO PRN (14:27)
--- NOTE | 2019-05-30 16:02 | Pulmonary Consultation ---
Date of Consultation May 30, 2019 Assessment & Plan (1) Acute and chronic respiratory failure: Patient with no risk factors for COVID-19. Please refer to HPI Respiratory panel is negative. Influenza A and BNegative This point patient does have history of VIK and is noncompliant Patient is morbidly obese with a protuberant belly Patient has not been active since surgery on 05/26/2019 Sputum negative No indication on CTA of any pneumonia, atelectasis, infiltrate We recommend continuation of incentive spirometry as well as flutter valve. Patient does apparently have history of COPD although we do not have access to the [place] records for PFTs Continue home ventilators Ambulate patient Out of bed to chair as often as possible to take advantage of dependent zones of lung Increase activity as tolerated Discontinue orders for COVID-19. Discontinue orders for droplet or airborne precautions. Discontinue narcotics as this leads to sleep apnea and is most likely contributing to his hypoxia (2) Obesity: Discussed weight loss with the patient Continue increase ambulation Decrease ethanol use (3) VIK on CPAP: Continue to follow with outside animal cruelty investigation supervisor with [place] Patient reports that he has an appointment scheduled Encourage CPAP usage to increase compliance Thank you for including us in the care of this patient. There are no acute pulmonary findings. Pulmonary service will sign off at this time Please feel free to reconsult as needed. Supervising Physician Co-Signing Physician Notes I saw and evaluated the patient with Joel solis, and agree with findings and plan as documented in the note. Patient seen and examined at bedside. No acute distress, no adverse events ov ernight. Patient was admitted initially status post fall after being alcohol intoxicated. Patient had fracture of the right ankle which was fixed. Patient has sleep apnea but he is not compliant with his CPAP at home. Patient had a CTA done on 05/29/2019 for his shortness of breath CTA chest 05/29/2019 personally reviewed: No evidence of pulmonary embolism. Patient had some granulomatous changes appreciated with granuloma in the right lower lobe as well as mediastinal lymph node calcification. There is minimal atelectasis appreciated at the bases. There is no infiltrate appreciated. There is no mediastinal lymphadenopathy significant. Overnight as the patient was coughing Covid-19 test was ordered. Patient has no signs or symptoms which would necessitate testing for Covid-19. He has no known contacts who had Covid-19 positive. Patient personally denies any fever or chills. No runny nose. Patient has cough which has been going on for very long time is chronic no significant change in it. We will DC the tests. And DC the isolation. Importance of using CPAP while the patient is in the hospital explained to the patient. Tonic hypercapnia from his underlying sleep apnea. Patient does get hypoxic when he sleeping because he is noncompliant with his CPAP leading to that. Would keep the oxygen saturation between 88 to 92%. Continue with flutter valve and incentive spirometry. We will try to avoid any opioid medications given that he has history of VIK and hypercapnia which might make it worse. History of Present Illness Attending Physician: Frieda Hoskins MD History of Present Illness Attending: Dr. Romeo This is a 73-year-old male. He was admitted on 05/26/2019 after a fall. He reports that he was at a bar having a democrat and was inebriated. He subsequently had ORIF and has been primarily limited in activity due to pain of his right ankle. The patient has a past medical history including morbid obesity with a BMI of 42.0 kg/m, documented obstructive sleep apnea on BiPAP at home with noncompliance, degenerative disc disease from wartime injury during [place], COPD with past medical history of smoking, GERD, depression, PTSD, and BPH. The patient had an ethyl alcohol level of 188 mg/Arun on admission. He underwent open reduction internal fixation with Dr. Real on 05/26/2019. The patient reports that he has inhalers at home but no nebulizer. He does not use home oxygen. Over the last 2 days the patient has increased oxygen usage which appears to be related to narcotic administration for pain and noncompliance with BiPAP. An arterial blood gas was collected which showed a pH of 7.38, PCO2 45, PaO2 76, HCO3 26, SPO2 95.3% on 3 L via nasal cannula. A CTA of the chest was completed on 05/29/2019 due to shortness of breath at that time and revealed no evidence of pulmonary emboli and no consolidation infiltrate or other significant abnormality seen of the lungs. Sputum was collected and showed a normal anai with no evidence of infection. Patient is sitting comfortably in bed with nasal cannula in place with no evidence of distress, no dyspnea with full sentences, and no use of accessory muscles. Patient denies fever or chills. He has no cough or sputum that is new. Patient does report chronic cough and this is what he reports during this hospital stay. He denies any acute pulmonary changes in sputum or in cough. The patient has no travel. He has no sick contacts. He denies any contact with COVID-19 positive actors or relatives. He has no travel from an endemic area. The patient reports persistent pain of his right ankle. Otherwise he has no acute complaints at the time of my examination. Allergies Allergy/AdvReac Type Severity Reaction Status Date / Time ibuprofen Allergy Unknown HIVES Verified 10/05/18 21:38 Home Medications Home Medications Medication Instructions Recorded Confirmed Type Spiriva with HandiHaler 1 cap INHALATION DAILY PRN 11/30/17 05/26/19 History bupropion HCl 150 mg PO QAM 11/30/17 05/26/19 History clonazepam 0.5 mg PO DAILY 11/30/17 05/26/19 History gabapentin 600 mg PO TID 11/30/17 05/26/19 History lisinopril 10 mg PO DAILY 11/30/17 05/26/19 History pantoprazole 40 mg PO DAILY 11/30/17 05/26/19 History sertraline 100 mg PO BID 11/30/17 05/26/19 History trazodone 300 mg PO HS 11/30/17 05/26/19 History tamsulosin [Flomax] 0.4 mg PO QPM 10/05/18 05/26/19 History atorvastatin 10 mg PO HS 05/26/19 05/26/19 History budesonide-formoterol 2 puff INHALATION BID 05/26/19 05/26/19 History cetirizine 10 mg PO HS PRN 05/26/19 05/26/19 History meloxicam 15 mg PO DAILY 05/26/19 05/26/19 History methocarbamol 1,000 mg PO QID 05/26/19 05/26/19 History montelukast 10 mg PO DAILY 05/26/19 05/26/19 History prazosin 5 mg PO HS 05/26/19 05/26/19 History aspirin 81 mg PO BID 42 Days #84 tab 05/30/19 Rx ipratropium-albuterol 3 ml INH Q6H PRN #90 ml 05/30/19 Rx Patient History Medical History Asthma (Chronic) BPH (benign prostatic hyperplasia) (Chronic) Chronic bronchitis Closed fracture dislocation of ankle (Acute) DDD (degenerative disc disease) (Acute) Diverticulitis HTN (hypertension) (Chronic) Intractable back pain (Acute) MRSA (methicillin resistant Staphylococcus aureus) (Chronic) negative nasal swab on 06/24/15 and 10/05/18 Obesity VIK on CPAP (Chronic) Noncompliant Prolonged QT interval IFd=226 EKG 05/25/19 PTSD (post-traumatic stress disorder) (Chronic) do not wake patient by touching, wake patient by saying name Surgical History History of back surgery (Chronic) back surgery x3 at [facility] History of partial colectomy S/P hernia repair Family History Other Family history non-contributory Social History Preferred Language: Armenian Communication Ability: Effective Data Transcriber Required: No Beliefs That Will Affect Care: None marital status: Current Living Situation: Spouse Other Information That Helps Us Care for You: No Feels Safe at Home: Yes Safety Concerns: Feels Safe At This Time Smoking Status: Former smoker Tobacco Type: cigarettes ; Do You Dip or Chew Tobacco: Yes ; Second Hand Exposure: No ; Tobacco Cessation Education Requested by Patient: No Hx Alcohol Use: Yes Alcohol type: beer and hard liquor Hx Substance Use: No Review of Systems Review of Systems: All systems reviewed & are unremarkable except as noted in HPI & below Physical Exam Physical Exam: GENERAL : No acute distress. No use of accessory muscles. No dyspnea with conversation in full sentences. EYES: No icterus, gaze conjugate NOSE: No evidence of epistaxis. Nasal cannula is in place MOUTH: No lesions or candidiasis NECK: Supple LUNGS: Patient has some bibasilar crackles. There is no evidence of rhonchi. He does have scattered faint wheezes with expiration. HEART: Regular, rate controlled ABDOMEN: Soft, NT, ND, BS Present EXTREMITIES: No LE edema, pedal pulses intact. Boot is in place to the right foot. NEURO: A&OX3 Results & Data Results & Data ([facility]) Vital Signs (Past 12 Hours) Vital Signs Temp Pulse Pulse Resp BP BP Pulse Ox 05/30/19 15:06 68 16 96 05/30/19 15:00 36.9 C 70 20 151/80 H 94 05/30/19 13:17 36.8 C 67 16 140/72 94 05/30/19 11:16 85 18 96 05/30/19 08:32 37 C 75 18 162/76 H 95 05/30/19 08:00 72 05/30/19 07:21 67 18 89 L 05/30/19 04:42 36.9 C 63 18 153/79 H 92 Laboratory Results 05/29/19 06:35 05/29/19 06:[address] angio chest PE protocol CT DOSE: 848.16 mGy.cm HISTORY: Chest pain PE TECHNIQUE: Multiaxial CT images of the chest were performed following the intravenous administration of contrast to evaluate the pulmonary arteries. Maximal intensity projection images were also obtained. A dose lowering technique was utilized adhering to the principles of ALARA. COMPARISON STUDY: None. FINDINGS: There is a normal caliber thoracic aorta with no evidence for dissection. There is no evidence for pulmonary embolus. No pleural effusions. No pneumothorax. The liver and spleen are unremarkable. No mediastinal or hilar lymphadenopathy. The central airways are patent. The lungs are clear. Minimal posterior pleural thickening considered chronic. Degenerative change thoracic spine. IMPRESSION: No evidence for pulmonary embolus. The lungs are grossly clear. Electronically signed by: Marcelo Chamberlain M.D. 05/29/2019 3:52 PM BILATERAL LOWER EXTREMITY VENOUS DOPPLER HISTORY: Bilateral leg pain. rule out DVT COMPARISON STUDY: None. FINDINGS: There is normal compressibility, flow, and augmentation within the visualized bilateral lower extremity deep venous systems. Of note, the right calf vessels are unable to be visualized due to the patient's overlapping cast. IMPRESSION: No DVT within the visualized right or left lower extremity. Electronically signed by: Will Barry M.D. 05/29/2019 4:12 PM PG Care Time/CCT Total # of Minutes Spent Total Time Spent with Patient: Total time spent is greater than 50% in coordination of care (as documented) at patient's floor/unit and/or counseling patient: 35 minutes Coding Level of Care Code 86602 Inpt Consult Level 4 Diagnoses Acute and chronic respiratory failure J96.20 Obesity E66.9 VIK on CPAP G47.33; Z99.89
--- NOTE | 2019-05-30 17:10 | Hospitalist Progress Note ---
Date of Service May 30, 2019 Assessment & Plan (1) Acute hypoxemic respiratory failure: Acute hypoxemic respiratory failure: Possible secondary to bronchitis? Has underlying COPD, and severe obstructive sleep apnea-compliant with CPAP Chest x-ray on admission 05/26/2019, showed no infiltration or effusion History of chronic asthma/obstructive sleep apnea likely obesity hypoventilation syndrome Required supplemental oxygen on admission ABG preop (05/25) - pH 7.22, pCO2 56, pO2 84, bicarb 24, on 3L O2-possible due to elevated alcohol intoxication/narcotic meds? 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 Influenza a and B negative Patient will be discharged home tomorrow, will continue home inhalers, will give prescription for home nebulizer treatment Nocturnal pulse oximetry shows severe obstructive sleep apnea with desaturation Of more than 40 minutes Echo obtained, shows pulmonary hypertension RVSP elevated at 30-40 mm Hg possibly secondary to severe obstructive sleep apnea Will need 4 L oxygen at night Nocturnal pulse oximetry Discussed at length with patient regarding requirement for home oxygen, compliance with CPAP at night -evidence of severe obstructive sleep apnea noted on nocturnal pulse oximetry 46-minute of desaturation noted less than 88%, patient was placed on 4 L O2 via nasal cannula Patient is agreeable to use his CPAP machine at home His main concern regarding the ill fitting mask has at home, CPAP mask that he has been using with hospital CPAP machine fits him better, and wondering if he can get a order to have similar mask at home Traumatic right ankle fracture secondary to mechanical fall from intoxication Status post ORIF of right ankle fracture by Dr. Real on 05/26/2019 -Patient is nonweight bearing on right ankle for next 6 weeks Orthopedics follow-up in [facility] in 2 weeks for staple removal Need to keep his right foot splint clean and dry until follow-up with orthopedics office Acute renal failure on CKD stage III - now resolved - baseline Cr ~1.2 - mildly elevated Cr from baseline on admission - possibly secondary to hypotensive state periop Given IV fluids - cont. to monitor -Creatinine improved to 1 We will DC NSAID/Mobic patient's home medication Anemia - acute blood loss from surg./ dilutional from IVF - current Hgb 12.8, stable - cont. to monitor Past tobacco abuse, Chronic back pain: Patient home medication Robaxin/muscle relaxant changed to as needed Alcohol abuse/intoxication No evidence of withdrawal Counseling provided regarding alcohol addiction/withdrawal Strongly advised to observe social distancing during virus pandemic: Patient was drinking at a gathering at friend's house got intoxicated fell and broke his right ankle Patient verbalized understanding Full code DVT prophylaxis: Subcu heparin Disposition: Plan for discharge home tomorrow, for 05/31/2019 update given to over the phone Discharge requirements: 1. Will need arrangement for home O2 2. Need prescription for new mask for CPAP machine 3. Will need prescription for nebulizer machine and solution 4. Patient is going to be nonweightbearing on right lower extremity for 6 weeks, will need to either walker or knee scooter 5. Will need arrangement for home physical therapy Admission and Anticipated Discharge Date Admission Date: May 26, 2019 Subjective Symptomatically patient much improved today, no productive cough, no fever Patient reports of feeling much better today, , no audible wheeze Denies of any orthopnea, no dyspnea on exertion In good spirit, energy has returned back to his baseline Very eager to be discharged home Review of Systems Review of Systems: All systems reviewed & are unremarkable except as noted in HPI & below Constitutional: no fever, no chills and no fatigue Respiratory: no cough, no dyspnea, no dyspnea on exertion, no pain with cough, no sputum production and no wheezing Cardiovascular: no chest pain, no dyspnea, no orthopnea, no palpitations and no lightheadedness Physical Exam Constitutional: WD/WN, vitals as above no acute distress Eyes: PERRL, conjunctivae normal, anicteric sclerae ENMT: external ear and nose normal, oropharynx normal Neck: trachea midline, no thyromegaly Respiratory: no respiratory distress and no cough Auscultation: no crackles, no rales and no wheezes Cardiovascular: Rate/Rhythm: regular rate and regular rhythm Extremities: normal capillary refill; no pedal edema and no edema Gastrointestinal (Abdomen): Inspection/Auscultation: normal bowel sounds Percussion/Palpation: abdomen soft; abdomen nontender Musculoskeletal: no cyanosis or clubbing, extremities motor strength 5/5 Skin: no rashes, warm and dry Neurologic: PERRL, EOMI, accommodation nl, no face palsy, no dysarthria Psychiatric: A+Ox3, euthymic affect Results & Data Results & Data ([facility]) Vital Signs (Past 12 Hours) Vital Signs Temp Pulse Pulse Resp BP BP Pulse Ox 05/30/19 15:06 68 16 96 05/30/19 15:00 36.9 C 70 20 151/80 H 94 05/30/19 13:17 36.8 C 67 16 140/72 94 05/30/19 11:16 85 18 96 05/30/19 08:32 37 C 75 18 162/76 H 95 05/30/19 08:00 72 05/30/19 07:21 67 18 89 L
[2019-05-30] MEDS: TAMSULOSIN HCL 0.4 MG CAP PO SCH (20:30)
[2019-05-30] MEDS: PRAZOSIN HCL 1 MG CAP PO SCH (20:31)
[2019-05-30] MEDS: ATORVASTATIN 10 MG TAB PO SCH (20:31)
[2019-05-30] MEDS: MONTELUKAST SODIUM 10 MG TABLET PO SCH (20:31)
[2019-05-30] MEDS: SENNA 8.6 MG TAB PO SCH (20:32)
[2019-05-30] MEDS: TRAZODONE HCL 50 MG TAB PO SCH (20:34)
[2019-05-31] MEDS: ALBUT/IPRATROP 3MG/0.5MG NEB 3 ML VIAL NEB SCH ×2 (03:16→07:30)
[2019-05-31] MEDS: ACETAMINOPHEN 325 MG TAB PO PRN (03:37)
[2019-05-31] MEDS: HEPARIN SOD 5,000 UNIT/0.5 ML VIAL SQ SCH (05:57)
[2019-05-31] MEDS: DOXYCYCLINE HYCLATE 100 MG CAP PO SCH (05:57)
[2019-05-31] MEDS ORDERED: TRAMADOL HCL 50 MG TABLET PO STA (06:07)
[2019-05-31] MEDS: FLUTICASONE/VILANTEROL 200/25MCG 14 PUFFS/INHALER INH SCH (08:34)
[2019-05-31] MEDS: MAGNESIUM OXIDE 400 MG TAB PO SCH (08:35)
[2019-05-31] MEDS: MULTIVITAMIN TAB PO SCH (08:35)
[2019-05-31] MEDS: guaiFENesin 600 MG TABCR PO SCH (08:35)
[2019-05-31] MEDS: GABAPENTIN 600 MG TAB PO SCH (08:35)
[2019-05-31] MEDS: UMECLIDINIUM BROMIDE 62.5MCG/BLISTER 7 PUFFS/INHALER INH SCH (08:36)
[2019-05-31] MEDS: FOLIC ACID 1 MG TAB PO SCH (08:37)
[2019-05-31] MEDS: lisinopriL 10 MG TAB PO SCH (08:37)
[2019-05-31] MEDS: PANTOprazole 40 MG TAB PO SCH (08:37)
[2019-05-31] MEDS: SERTRALINE HCL 100 MG TABLET PO SCH (08:37)
[2019-05-31] MEDS: DOCUSATE SODIUM 100 MG CAP PO SCH (08:37)
[2019-05-31] MEDS: THIAMINE HCL 100 MG TAB PO SCH (08:38)
--- NOTE | 2019-05-31 10:15 | Pulmonology Progress Note ---
Date of Service May 31, 2019 Assessment & Plan (1) Acute and chronic respiratory failure: --Acute hypoxic respiratory failure on top of chronic hypercapnic respiratory failure Hypercapnic respiratory failure is secondary to his underlying noncompliance with CPAP for his underlying VIK on top of being given opioid medication for the pain Recommend patient to use his CPAP all the time when he is sleep eating or taking a nap. Importance of using CPAP explained to the patient in depth. Patient had an oximetry done overnight with very saturation went down to as low as 60% this goes with his underlying VIK. If the patient will be compliant with CPAP he will likely not need oxygen at night. --Asthma with questionable COPD Patient is on budesonide and Spiriva at home Would continue with the same regimen Patient would benefit from a nonemergent pulmonary follow-up as an outpatient to have his PFTs done. --History of tobacco use Approximately [id number] smoking history Quit greater than 15 years ago --Morbid obesity advised to lose weight with diet and exercise Plan: Continue with inhaled bronchodilators. Continue with guaifenesin as mucolytic. May consider adding Mucomyst nebulized if patient still complains of difficulty bringing up phlegm. Recommend discontinuing Rocephin (2) Chronic bronchitis: (3) VIK on CPAP: Admission and Anticipated Discharge Date Admission Date: May 26, 2019 Subjective Patient seen and examined at bedside. No acute distress, no adverse events overnight. Patient did not use his CPAP overnight. Denies any shortness of breath, no chest pain, no headache, no nausea, no vomiting. Good appetite. He does complain of some cough says is not able to bring up the phlegm but he can feel as his has phlegm which does not come out. Review of Systems Review of Systems: All systems reviewed & are unremarkable except as noted in HPI & below Physical Exam Physical Exam: Constitutional: No acute distress HEENT: EOMI, PERRLA, thick neck, Mallampati 4 Respiratory system: Fair air entry bilaterally, minimal crackles bilateral lower lobes, no wheeze, no rhonchi CVS: S1-S2 positive, no murmurs or gallops Abdomen: Soft, nontender, nondistended, positive bowel sounds x4 Extremities: +2 pulses bilaterally radialis/ dorsalis pedis, no cyanosis, no edema, right lower extremity in cast Neuro: Awake alert oriented x3 Psych: Normal mood and affect G/U: No Witt Skin: no rashes, warm and dry Lymphatic: no cervical or axillary lymphadenopathy Results & Data Results & Data ([facility]) Vital Signs (Past 12 Hours) Vital Signs Temp Pulse Resp BP BP Pulse Ox 05/31/19 07:34 36.7 C 71 20 165/79 H 98 05/31/19 07:31 71 16 96 05/31/19 05:00 36.7 C 70 18 156/82 H 92 05/31/19 03:19 65 18 93 05/30/19 23:29 71 18 95 05/30/19 23:03 36.7 C 68 22 158/88 H 95 05/29/19 06:35 05/29/19 06:35 PG Care Time/CCT Total # of Minutes Spent Total Time Spent with Patient: Total time spent is greater than 50% in coordination of care (as documented) at patient's floor/unit and/or counseling patient: Coding Level of Care Code 25195 Subseq Hosp Care Lvl 3 Diagnoses Acute and chronic respiratory failure J96.20 Chronic bronchitis J42 VIK on CPAP G47.33; Z99.89
[2019-05-31] MEDS ORDERED: ALBUT/IPRATROP 3MG/0.5MG NEB 3 ML VIAL NEB SCH (13:00)
--- NOTE | 2019-05-31 18:15 | Discharge Summary ---
Date of Service May 31, 2019 Admission HPI Per Admitting Provider History obtained from patient and records. Medical history significant for hypertension, BPH, asthma, past tobacco abuse, post-traumatic stress disorder, chronic back pain, hx MRSA, VIK on BIPAP at night. Recent confinement last September 2018 for intractable back pain. Patient was at a gathering with friends last night when he stumbled and fell onto a potted plant subsequently landing on a china cabinet later onto the floor. Patient noted excruciating right ankle pain with note of obvious right ankle deformity. No head trauma/LOC/syncope/chest pain. Usual shortness of breath on exertion with junky cough symptoms attributed to his asthma for months now. No fever, chills, or flulike symptoms. O2 sats noted to be 88 on room air upon arrival at the ER. Closed reduction of dislocated right ankle fracture done at the ER under sedation. MEDICAL HISTORY: As above. No prior history of confinement/intubation for alcohol withdrawal or alcohol withdrawal seizures. SURGERIES: Partial colectomy, hernia repair, back surgery. FAMILY HISTORY: Heart disease. PERSONAL AND SOCIAL HISTORY: Past tobacco abuse. 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 Principal Diagnosis Right ankle fracture, status post surgical repair Respiratory failure secondary to COPD exacerbation, severe obstructive sleep apnea Discharge Exam Constitutional WD/WN, vitals as above no acute distress Eyes PERRL, conjunctivae normal, anicteric sclerae ENMT external ear and nose normal, oropharynx normal Neck trachea midline, no thyromegaly Respiratory no respiratory distress and no cough Auscultation: no crackles, no rales and no wheezes Cardiovascular Rate/Rhythm: regular rate and regular rhythm Extremities: normal capillary refill; no pedal edema and no edema Gastrointestinal (Abdomen) Inspection/Auscultation: normal bowel sounds Percussion/Palpation: abdomen soft; abdomen nontender Musculoskeletal no cyanosis or clubbing, extremities motor strength 5/5 Skin no rashes, warm and dry Neurologic PERRL, EOMI, accommodation nl, no face palsy, no dysarthria Psychiatric A+Ox3, euthymic affect Discharge Data Allergies Allergy/AdvReac Type Severity Reaction Status Date / Time ibuprofen Allergy Unknown HIVES Verified 10/05/18 21:38 Consultations 05/26/19 03:59 ED Decision to Admit Stat 05/26/19 06:04 Consult Case Management - Discharge Planning Routine Consult Orthopedic Surgery Routine 05/29/19 15:23 Consult Pulmonology Routine Procedures Performed Operation Date: 05/26/19 11:00 Actual Procedures p Open Reduction Internal Fixation Right Ankle(Right) - Johnathon Real DO Ordered Studies 05/26/19 FL ankle RT min 3V RTN Routine FL fluoroscopy <1hr Routine 05/29/19 14:29 CT angio chest PE protocol Stat 05/29/19 16:00 US venous doppler LE BI Routine Hospital Course (1) Acute hypoxemic respiratory failure: Acute hypoxemic respiratory failure: Possible secondary to bronchitis/with underlying COPD, and severe obstructive sleep apnea-compliant with CPAP Chest x-ray on admission 05/26/2019, showed no infiltration or effusion History of chronic asthma/obstructive sleep apnea likely obesity hypoventilation syndrome Required supplemental oxygen on admission Appreciate input from pulmonology team Patient does not have any evidence of pneumonia atelectasis or infiltrate on CT of chest, no evidence of PE Recommends continue of incentive spirometry as well as flutter valve Patient will continue to follow-up with 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 Influenza a and B negative Nocturnal pulse oximetry shows severe obstructive sleep apnea with desaturation Of more than 40 minutes Echo obtained, shows pulmonary hypertension RVSP elevated at 30-40 mm Hg possibly secondary to severe obstructive sleep apnea pt is on 4 L oxygen NC cont Traumatic right ankle fracture secondary to mechanical fall from intoxication Status post ORIF of right ankle fracture by Dr. Real on 05/26/2019 -Patient is nonweight bearing on right ankle for next 6 weeks Orthopedics follow-up in [facility] in 2 weeks for staple removal Need to keep his right foot splint clean and dry until follow-up with orthoped ics office appreciate input from PT/OT -high fall risk , recommends rehab referral made to [facility] Acute renal failure on CKD stage III - now resolved - baseline Cr ~1.2 - mildly elevated Cr from baseline on admission - possibly secondary to hypotensive state periop Given IV fluids - cont. to monitor -Creatinine improved to 1 We will DC NSAID/Mobic patient's home medication Anemia - acute blood loss from surg./ dilutional from IVF - current Hgb 12.8, stable - cont. to monitor Past tobacco abuse, Chronic back pain: Patient home medication Robaxin/muscle relaxant changed to as needed Alcohol abuse/intoxication No evidence of withdrawal Counseling provided regarding alcohol addiction/withdrawal Strongly advised to observe social distancing during virus pandemic: Patient was drinking at a gathering at friend's house got intoxicated fell and broke his right ankle Patient verbalized understanding Full code DVT prophylaxis: Subcu heparin Disposition: pt is discharged to Acute rehab [facility] Total Time Total Time Spent Total Time Spent (In Minutes): 35mins Total Time Includes: Examination of the Patient, Discharge Planning and Medication Reconciliation Discharge Plan Discharge Items Patient Disposition: Transfer Inpatient Rehab Fac Reason For Visit: RESP FAILURE Discharge Diagnosis: Right ankle fracture, status post surgical repair Respiratory failure secondary to COPD exacerbation, severe obstructive sleep apnea Activity: As commented below Activity Comment: Nonweightbearing of right foot for 6 weeks Weightbearing: Right non-weightbearing Weightbearing Comment: Right nonweightbearing for 6 weeks Non-emergency contact: Primary Care Provider Call non-emergency contact if: you have any medication questions and your pain is not controlled Follow-up/Referrals: Johnathon Real DO [Physician] - (Follow-up with orthopedics Dr. Real in 2 weeks) PCP,NO [Primary Care Provider] - Diet: Heart Healthy Addtl Attending Provider Instructions: ORTHOPEDIC INSTRUCTIONS Activity Recommendations: Nonweightbearing on the right ankle for 6 weeks. Medications: Aspirin 81 mg twice a day for 6 weeks for DVT prophylaxis. Dressing Care: Keep the splint clean and dry until follow-up in the office in 2 weeks. Showering: Do not get the splint wet until follow-up in the office in 2 weeks. Things To Watch For: 1. Drainage from the incision site that occurs more than one week after your surgery. 2. Increased redness at the incision site. 3. Fever above 102 degrees Fahrenheit. 4. Unusual chest pain or shortness of breath. 5. Call [facility] at with any of the above problems Follow-Up Visit: Follow-up with Dr. Real's PA (Johnathon Correa) 2-3 weeks after your day of surgery. He will remove your rabia and answer any questions. If you have any additional questions or concerns, Dr Real is usually in the office at the same time and will be available An appointment was probably scheduled when you signed-up for surgery in the office. If you have any questions call [facility] Communication Signals Intelligence Provider Instructions: It is very important for you to use CPAP at night on a regular basis [facility] Need to limit alcohol intake, Excessive alcohol consumption is associated with multiple increased health risk which includes but not limited to: Liver failure, heart failure kidney disease, dementia, increased risk of stroke, risk of fall Please seek help/discuss with your family physician regarding resources if you feel you are not able to cut down your alcohol intake Pending Studies at Discharge: No Stand-Alone Forms: [employer], Smoking Cessation Skilled Items Patient informed of condition?: Yes DNR: No Discharge Level of Care: Acute rehab Communicable Disease: No Discharge Prognosis: Stable Lines: None Urinary Catheter: No Medications and DC Order Prescriptions: New aspirin 81 mg tablet,delayed release (DR/EC) 81 mg PO BID 42 Days Qty: 84 RF: 0 ipratropium-albuterol 0.5 mg-3 mg(2.5 mg base)/3 mL solution for nebulization 3 ml INH Q6H PRN (Reason: wheezing) Qty: 90 RF: 3 Continued montelukast 10 mg Tablet 10 mg PO DAILY RF: 0 atorvastatin 10 mg Tablet 10 mg PO HS RF: 0 cetirizine 10 mg Tablet 10 mg PO HS PRN (Reason: Allergy Symptoms) RF: 0 prazosin 5 mg Capsule 5 mg PO HS RF: 0 budesonide-formoterol 160-4.5 mcg/actuation Hfa Aerosol Inhaler 2 puff INHALATION BID RF: 0 gabapentin 300 mg Capsule 600 mg PO TID RF: 0 lisinopril 10 mg Tablet 10 mg PO DAILY RF: 0 clonazepam 0.5 mg Tablet 0.5 mg PO DAILY RF: 0 sertraline 100 mg Tablet 100 mg PO BID RF: 0 bupropion HCl 150 mg Tablet Extended Release 24 Hr 150 mg PO QAM RF: 0 trazodone 300 mg Tablet 300 mg PO HS RF: 0 pantoprazole 40 mg Tablet,Delayed Release (Dr/Ec) 40 mg PO DAILY RF: 0 Spiriva with HandiHaler 18 mcg Capsule, W/Inhalation Device 1 cap INHALATION DAILY PRN (Reason: Shortness Of Breath) RF: 0 tamsulosin [Flomax] 0.4 mg Capsule 0.4 mg PO QPM RF: 0 Changed methocarbamol 500 mg Tablet 1,000 mg PO QID PRN (Reason: muscle spasm) Qty: 0 RF: 0 Discontinued meloxicam 15 mg Tablet 15 mg PO DAILY RF: 0 Discharge Orders: Discharge Order (Routine); Ordered 05/31/19 Ordered By: Frieda uLther/Other Patient Handouts: Alcohol Use Disorder, Alcoholism Myths Facts, Alcoholism Get Help, CPAP Dc Admission Data Admit Date/Time: 05/26/19 05:04 Attending Provider: Frieda Hoskins Admit Provider: Johnathon Real Primary Care Provider: PCP,NO Other Providers: [facility] ; [facility] ; [facility], ; Moi Cai ; Johnathon Real ; Venus Romeo Other Interventions: Discharge Summary Assessment (RN) Last Done: 05/31/19 12:26 DC Date/Time DO NOT enter until pt leaves facility: 05/31/19 13:34
== END 2019-05-31 13:34 | DRG 492 ==
LOC: ED 00:28 → 2N 05:04 → SUATTDRO 05:04 → 2N 05:42

== ENCOUNTER 2019-06-22 09:53 | Inpatient (IN) ==
[2019-06-22] MEDS ORDERED: ONDANSETRON INJ 2 MG/ML 2 ML VIAL IV PRN ×2 (10:35→11:20)
--- NOTE | 2019-06-22 10:40 | History & Physical Report ---
Date of Service June 22, 2019 Assessment & Plan (1) Status post ORIF of fracture of ankle: (2) Postoperative wound infection: Discussed findings with patient. will plan to keep him NPO. Consult hospitalist for pre-op clearance and post op medical management during inpatient stay. Plan for I&D of right ankle wound today. Labs ordered and currently pending. Informed consent discussed and obtained by Dr. Arboleda. Risks and complications include but are not limited too infection, bleeding, pain, scarring, nerve and blood vessel damage, wound problems, repeat surgery, stiffness, incomplete relief of symptoms, hardware failure, fracture, malunion, nonunion, blood clots, heart attack, stroke or . All patient questions answered, discussed with his at home. Consent on chart. Patient understands and agrees with the plan. Will be admitted and intra-operative cultures to be obtained. Will remain Non weight bearing right lower extremity. Present on Admission?: Yes History of Present Illness Chief Complaint: right ankle pain; s/p ORIF right ankle fracture 05/25 Primary Care Provider: NO PCP Patient is a 74 year old male who presented to the ED today with complaints of right ankle pain, swelling, redness, warmth and fevers. States that he's had worsening pain and swelling right ankle for the past few days, saw Dr. Real yesterday in the ie, was placed on antibitics and advised to follow up on Monday for recheck. He called an ambulance today due to some fevers and according to his he's had some changes in his mental status and "talking to people that weren't there". She had called the answering service this morning and stated that she was sending him to the ED. He underwent an ORIF of his right ankle with Dr. Real on 05/26/19. States that he's been nonweightbearing on his right leg since surgery but has getting around his house by holding on to things. He states that he has pain in his ankle constantly. Has history of MRSA and C-Diff. His is not present with him today. states that he does have some tingling in his toes since surgery. Denies have DM. Denies any new injury. Allergies Allergy/AdvReac Type Severity Reaction Status Date / Time ibuprofen Allergy Unknown HIVES Verified 06/22/19 10:45 Home Medications Home Medications Medication Instructions Recorded Confirmed Type Spiriva with HandiHaler 1 cap INHALATION DAILY PRN 11/30/17 05/26/19 History bupropion HCl 150 mg PO QAM 11/30/17 05/26/19 History clonazepam 0.5 mg PO DAILY 11/30/17 05/26/19 History gabapentin 600 mg PO TID 11/30/17 05/26/19 History lisinopril 10 mg PO DAILY 11/30/17 05/26/19 History pantoprazole 40 mg PO DAILY 11/30/17 05/26/19 History sertraline 100 mg PO BID 11/30/17 05/26/19 History trazodone 300 mg PO HS 11/30/17 05/26/19 History tamsulosin [Flomax] 0.4 mg PO QPM 10/05/18 05/26/19 History atorvastatin 10 mg PO HS 05/26/19 05/26/19 History budesonide-formoterol 2 puff INHALATION BID 05/26/19 05/26/19 History cetirizine 10 mg PO HS PRN 05/26/19 05/26/19 History montelukast 10 mg PO DAILY 05/26/19 05/26/19 History prazosin 5 mg PO HS 05/26/19 05/26/19 History aspirin 81 mg PO BID 42 Days #84 tab 05/30/19 Rx ipratropium-albuterol 3 ml INH Q6H PRN #90 ml 05/30/19 Rx methocarbamol 1,000 mg PO QID PRN #0 tab 05/30/19 05/26/19 Rx hydrocodone 5 mg-acetaminophen 325 1 tab PO Q6H PRN #20 tab 06/12/19 06/12/19 Rx mg tablet meloxicam 15 mg tablet 15 mg PO DAILY #30 tab 06/18/19 06/18/19 Rx sulfamethoxazole 800 1 tab PO BID 7 Days #14 tab 06/18/19 06/18/19 Rx mg-trimethoprim 160 mg tablet doxycycline hyclate 100 mg tablet 100 mg PO BID PRN #14 tab 06/21/19 06/21/19 Rx tramadol 50 mg tablet 50 mg PO Q6H PRN #30 tab 06/21/19 06/21/19 Rx Past Med/Surg History Medical History (Updated 06/22/19 @ 10:59 by Meaghan Cook PA-C) Asthma (Chronic) BPH (benign prostatic hyperplasia) (Chronic) Chronic bronchitis Closed fracture dislocation of ankle (Acute) DDD (degenerative disc disease) (Acute) Diverticulitis HTN (hypertension) (Chronic) Intractable back pain (Acute) MRSA (methicillin resistant Staphylococcus aureus) (Chronic) negative nasal swab on 06/24/15 and 10/05/18 Obesity VIK on CPAP (Chronic) Noncompliant Prolonged QT interval PTj=092 EKG 05/25/19 PTSD (post-traumatic stress disorder) (Chronic) do not wake patient by touching, wake patient by saying name Surgical History (Updated 06/22/19 @ 10:49 by Meaghan Cook PA-C) History of back surgery (Chronic) back surgery x3 at [facility] History of partial colectomy S/P hernia repair Status post ORIF of fracture of ankle 05/26/[address] 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 Beliefs That Will Affect Care: None marital status: Current Living Situation: Spouse Feels Safe at Home: Yes Smoking Status: Former smoker Tobacco Type: cigarettes ; Do You Dip or Chew Tobacco: Yes ; Second Hand Exposure: No ; Hx Alcohol Use: Yes Alcohol type: beer and hard liquor Hx Substance Use: No Review of Systems Constitutional: + fever and + sweats; no chills, no weight loss and no weight gain Ear, Nose, Mouth, Throat: + foul smell (from right ankle) and + snoring; no hearing loss Respiratory: + cough, + snoring and + wheezing history of VIK - states that he has a dry cough Cardiovascular: no chest pain, no chest pain at rest, no palpitations, no lightheadedness, no syncope and no calf pain Gastrointestinal: no abdominal pain, no nausea and no vomiting Genitourinary: no difficulty urinating, no urinary frequency and no hematuria Musculoskeletal: + joint pain (right ankle), + swelling and + limited range of motion (right ankle) wound to right ankle with drainage, foul smell Neurologic: + numbness (toes right foot) and + confusion (mild ); no tingling and no headache(s) Physical Exam Constitutional: WD/WN, vitals as above + obese and + altered mental status; no acute distress and not ill appearing Eyes: PERRL, conjunctivae normal, anicteric sclerae ENMT: external ear and nose normal, oropharynx normal Neck: normal visual inspection and trachea midline Respiratory: normal respiratory effort and + cough; no respiratory distress, no labored breathing and does not use accessory muscles Auscultation: + rhonchi (with expiration in all lobes) Cardiovascular: Rate/Rhythm: regular rate, regular rhythm and + tachycardic Heart Sounds: normal S1 and normal S2; no murmur Vessels: posterior tibial pulses present (with doppler); + dorsalis pedis pulses abnormal (unable to locate with doppler on either foot) Extremities: normal capillary refill and + pedal edema (right ankle); no calf tenderness Gastrointestinal (Abdomen): normal bowel sounds, soft, nontender, no hepatosplenomegaly Musculoskeletal: stiffness right ankle with edema and erythema. Open draining wound right ankle with necrotic skin over lateral distal incision. Erythema surrounding, mild serous bloody drainage. nonpalpable dorsalis pedis pulses, posterior tibial pulse found with doppler bilaterally. No calf tenderness, tenderness of palpation diffusely throughout right foot and ankle. Sensation decreased at dorsum of toes, seems normal plantarlly. Pain with ROM right ankle. Results & Data Results & Data ([facility]) Vital Signs (Past 12 Hours) Vital Signs Temp Pulse Resp BP Pulse Ox 06/22/19 10:03 37.5 C 120 H 22 96/75 L 86 L Labs ordered and currently pending.
[2019-06-22] MEDS ORDERED: D5W AND 1/2NSS 1,000 ML IV SCH (10:45)
[2019-06-22] MEDS ORDERED: BUPIVACAINE 0.5 % 5 MG/1 ML MPF 30ML VIAL ONE (10:46)
[2019-06-22] MEDS ORDERED: LIDOCAINE HCL 1% 20 ML VIAL ONE (10:46)
[2019-06-22] MEDS ORDERED: BACITRACIN INJ 50,000 UNIT VIAL ONE (10:47)
[2019-06-22 10:53] LABS: Basophils # (auto) 0.02 K/uL (0-0.2); Basophils % (auto) 0.1 %; Eosinophils # (auto) 0.32 K/uL (0-0.5); Eosinophils % (auto) 2.3 %; Hematocrit (blood only) 39.4 % (42-52); Hemoglobin 12.7 g/dL (14.0-18.0); Immature Granulocytes # (auto) 0.05 K/uL (0.00-0.02); Immature Granulocytes % (auto) 0.4 %; Lymphocytes # (auto) 0.39 K/uL (1.2-3.4); Lymphocytes % (auto) 2.8 %; Mean Corpuscular Hemoglobin 26.2 pg (25-34); Mean Corpuscular Hgb Conc 32.2 g/dL (32-36); Mean Corpuscular Volume 81.2 fL (80-100); Mean Platelet Volume 10.6 fL (7.4-10.4); Monocytes # (auto) 1.25 K/uL (0.11-0.59); Monocytes % (auto) 9.1 %; Neutrophils # (auto) 11.71 K/uL (1.4-6.5); Neutrophils % (auto) 85.3 %; Platelet Count 353 K/uL (130-400); RDW Coefficient of Variation 15.4 % (11.5-14.5); RDW Standard Deviation 45.7 fL (36.4-46.3); Red Blood Count 4.85 M/uL (4.7-6.1); White Blood Count 13.74 K/uL (4.8-10.8)
[2019-06-22 10:59] LABS: BUN Creatinine Ratio 22.9 (10-20); Calcium 9.2 mg/dl (8.5-10.1); Creatinine Clr Calc Pharmacy 44.2 ml/min; Est GFR (African American) 49.2; Est GFR (Non-African American) 42.4; Potassium 4.3 mmol/L (3.5-5.1)
[2019-06-22] MEDS ORDERED: CEFAZOLIN 2000MG 2,000 MG/15 ML SYR IV SCH (11:00)
[2019-06-22 11:07] LABS: C Reactive Protein 31.8 mg/dl (0-0.29)
[2019-06-22] MEDS ORDERED: SODIUM CHLORIDE 0.9% 1000ML 1,000 ML IV ONE ×3 (11:07→13:41)
[2019-06-22] MEDS ORDERED: fentaNYL citrate 100 MCG/2 ML VIAL ONE (11:14)
[2019-06-22] MEDS ORDERED: MIDAZOLAM HCL 1 MG/ML 2ML VIAL ONE (11:14)
[2019-06-22] MEDS ORDERED: HYDROmorphone INJ 1 MG/ML SYRINGE IV PRN (11:20)
[2019-06-22] MEDS ORDERED: fentaNYL citrate 100 MCG/2 ML VIAL IV PRN (11:20)
[2019-06-22] MEDS ORDERED: ePHEDrine sulfate 50 MG/ML AMP IV PRN (11:20)
[2019-06-22] MEDS ORDERED: ATROPINE SULFATE 0.1 MG/ML 10ML SYR IV PRN (11:20)
--- NOTE | 2019-06-22 11:20 | Anesthesiology Consultation ---
Date of Service June 22, 2019 Assessment & Plan (1) Encounter for pre-operative examination: Chart Review Chart Review: Acceptable Risk for Surgery and Patient NOT seen in Pre Admission Testing Consults Requested none History Surgery Operation Date: 06/22/19 11:00 Proposed Procedures p Incision and Drainage Extremity(Right) - Owen Arboleda MD Height/Weight Height: 5 ft 3 in Weight: 102 kg Allergies Allergy/AdvReac Type Severity Reaction Status Date / Time ibuprofen Allergy Unknown HIVES Verified 06/22/19 10:45 Medications Home Medications Medication Instructions Recorded Confirmed Last Taken Spiriva with HandiHaler 1 cap INHALATION DAILY PRN 11/30/17 06/22/19 06/22/19 bupropion HCl 150 mg PO QAM 11/30/17 06/22/19 06/22/19 clonazepam 0.5 mg PO DAILY 11/30/17 06/22/19 06/22/19 gabapentin 600 mg PO BID 11/30/17 06/22/19 06/22/19 lisinopril 10 mg PO DAILY 11/30/17 06/22/19 06/22/19 pantoprazole 40 mg PO DAILY 11/30/17 06/22/19 06/22/19 sertraline 100 mg PO BID 11/30/17 06/22/19 06/22/19 tamsulosin [Flomax] 0.4 mg PO QPM 10/05/18 06/22/19 06/21/19 atorvastatin 10 mg PO HS 05/26/19 06/22/19 06/21/19 cetirizine 10 mg PO HS PRN 05/26/19 06/22/19 06/22/19 montelukast 10 mg PO DAILY 05/26/19 06/22/19 06/22/19 prazosin 5 mg PO HS 05/26/19 06/22/19 06/21/19 aspirin 81 mg PO BID 42 Days #84 tab 05/30/19 06/22/19 06/22/19 ipratropium-albuterol 3 ml INH Q6H PRN #90 ml 05/30/19 06/22/19 06/22/19 methocarbamol 1,000 mg PO QID PRN #0 tab 05/30/19 06/22/19 06/22/19 hydrocodone 5 mg-acetaminophen 325 1 tab PO Q6H PRN #20 tab 06/12/19 06/22/19 06/22/19 mg tablet meloxicam 15 mg tablet 15 mg PO DAILY #30 tab 06/18/19 06/22/19 06/22/19 sulfamethoxazole 800 1 tab PO BID 7 Days #14 tab 06/18/19 06/22/19 06/22/19 mg-trimethoprim 160 mg tablet doxycycline hyclate 100 mg tablet 100 mg PO BID PRN #14 tab 06/21/19 06/22/19 06/22/19 tramadol 50 mg tablet 50 mg PO Q6H PRN #30 tab 06/21/19 06/22/19 06/22/19 buspirone 5 mg PO TID 06/22/19 06/22/19 06/22/19 trazodone 300 mg PO HS 06/22/19 06/22/19 06/21/19 Past Medical History Medical History (Updated 06/22/19 @ 11:20 by Rogers Neville MD) Asthma (Chronic) BPH (benign prostatic hyperplasia) (Chronic) Chronic bronchitis Closed fracture dislocation of ankle (Acute) DDD (degenerative disc disease) (Acute) Diverticulitis HTN (hypertension) (Chronic) Intractable back pain (Acute) MRSA (methicillin resistant Staphylococcus aureus) (Chronic) negative nasal swab on 06/24/15 and 10/05/18 Obesity VIK on CPAP (Chronic) Noncompliant Prolonged QT interval VDx=217 EKG 05/25/19 PTSD (post-traumatic stress disorder) (Chronic) do not wake patient by touching, wake patient by saying name Past Family History Family History Other Family history non-contributory Past Surgical History Surgical History (Updated 06/22/19 @ 11:16 by Rogers Neville MD) History of back surgery (Chronic) back surgery x3 at [facility] History of partial colectomy S/P hernia repair Status post ORIF of fracture of ankle 05/26/[address] Farhan DIEZ with sedation. Social History Smoking Status: Former smoker tobacco type: cigarettes Do You Dip or Chew Tobacco: Yes Hx Alcohol Use: Yes Alcohol type: beer and hard liquor alcohol intake frequency: 0-2 drinks per day Hx Substance Use: No substance use type: does not use Physical Exam Vital Signs Last Vital Signs Temp 37.5 C 06/22/19 10:03 Pulse 120 H 06/22/19 10:03 Resp 22 06/22/19 10:03 BP 96/75 L 06/22/19 10:03 Pulse Ox 86 L 06/22/19 10:03 Testing Laboratory Results 06/22/19 10:15 06/22/19 10:15 Echocardiogram Date: 05/26/19 LV is normal in size. Borderline LVH. LV wall motion is normal. EF 60-65% RV normal in size and function. RV systolic pressure elevated at 30-40mmHg. Other Testing Electrocardiogram Date: 05/25/19 Findings: + NSR @ (71 with flat T waves and prolonged [id number]) Chest X-Ray Date: 05/25/19 Findings: + NAD and + cardiomegaly (moderate)
[2019-06-22] MEDS ORDERED: PIPERACILL/TAZOBAC CONSULT ACTIVE PRN (11:33)
[2019-06-22] MEDS ORDERED: IPRATROPIUM BROMIDE NEB SOLN 0.02% 2.5 ML VIAL INH SCH (11:45)
[2019-06-22] MEDS ORDERED: LEVALBUTEROL 1.25MG/0.5ML NEB INH SCH (11:45)
[2019-06-22] MEDS ORDERED: clonazePAM 0.5 MG TAB PO PRN (11:46)
--- NOTE | 2019-06-22 11:58 | Hospitalist Consultation ---
Date of Consultation June 22, 2019 Assessment & Plan (1) Severe sepsis: (2) Postoperative wound infection: -Patient admitted to telemetry unit under orthopedic service -History of right ankle ORIF on 05/25 -Has been having increasing redness, edema, drainage, pain to incision site -Seen in orthopedic clinic on 06/17 and placed on Bactrim -Upon arrival to the ED, patient is hypotensive, tachycardic, WBC 13 K, lactic acid 3.6 -BP improving after IVF bolus, continue to trend lactic acid -IV daptomycin and IV Zosyn -Follow blood cultures -Due to increased pain and swelling, will check RLE venous Doppler -Given sepsis and COPD exacerbation, would recommend optimizing the patient overnight and plan for I&D on 06/22 -Case discussed with Dr. Arboleda (3) Acute on chronic respiratory failure with hypoxia: (4) COPD exacerbation: -Patient with history of COPD, [facility] of [facility] via nasal cannula. Patient reports he was able to be weaned off the oxygen while at [facility]. -In the ED, patient was found to be hypoxic on room air at 88%. Currently saturating well on 2 L of oxygen via nasal cannula. - + Wheezing on exam -CXR clear -Start Solu-Medrol 40 mg every 8 hours -Pulmonary toilet with nebs, flutter valve, Mucinex (5) TARUN (acute kidney injury): -Creatinine 1.6 -Likely multifactorial secondary to recent prescription of Bactrim and meloxicam, in addition to sepsis -Hold home DENNIS inhibitor, NSAIDs -IVF, follow renal functions -Avoid nephrotoxic agents (6) HTN (hypertension): -Hypotensive on presentation -Holding lisinopril (7) BPH (benign prostatic hyperplasia): -Continue tamsulosin and prazosin (8) VIK (obstructive sleep apnea): -Noncompliant with CPAP -Recommend outpatient follow-up with sleep or pulmonary medicine (9) DVT prophylaxis: -SCDs due to planned invasive procedure Supervising Physician Co-Signing Physician Notes Attending Addendum: care coordinated with PAWEL Abbott please refer to her notes for full details, I agree with her notes patient seen and examined, records reviewed by myself as well on exam, patient seen sitting up in bed, alert, pleasant, not in distress states breathing is about the same, on 2 L nasal cannula, with increased cough, no sputum, no fever/chills no chest pain, palpitations, dizziness no other symptoms VS noted and reviewed General- oriented x 3, not in distress, speaks in sentences with no effort or accessory muscle use Head- atraumatic Eyes- PERRL, EOMI, anicteric ENT- oropharynx clear Neck- supple, no JVD, no adenopathy, no thyromegaly; carotids +2/2, no bruits appreciated Lungs- (+) diffuse wheezing bilaterally no crackles Heart-tachycardic, regular rhythm; no murmur, no gallop, no rub appreciated Abdomen- normal bowel sounds, nondistended, soft, nontender, no masses or hepatosplenomegaly Extremities-right leg edema, heaving dressing in place lef lower ext: essentially normal Neuro- alert, oriented x 3; CN 2-12 grossly intact; motor 5/5 bilaterally;sensation 100% on all extremities; no other gross focal neurologic deficits Skin- warm & dry WBC 13.7 Hg 12.7 Crea 1.6 lactic acid 3.6 ASSESSMENT AND PLAN 74 year old male with history of COPD, Chronic Hypercapneic Respiratory Failure, Obstructive Sleep Apnea, other problems noted below presenting with right ankle infection, history of recent ankle surgery and sepsis. SEVERE SEPSIS SECONDARY TO RIGHT ANKLE INFECTION plan of I&D by Ortho currently, the patient meets criteria for severe sepsis: tachycardia, leukocytosis, crea elevation, lactic acid elevation pre-operative eval: would like to stabilize patient today from sepsis standpoint and COPD exacerbation, before proceeding with surgery improve marginal BP and acute kidney injury with IV fluids start broad spectrum antibiotics- Dapto and Zosyn IV start Solumedrol and scheduled nebs will follow up blood cultures COPD EXACERBATION HISTORY OF HYPERCAPNEIC RESPIRATORY FAILURE, VIK management as above CPAP at night ACUTE RENAL FAILURE from sepsis, component of dehydration IV fluids ordered other diagnoses and plan of care as per PAWEL Abbott's notes Jakub Quiroz MD History of Present Illness Reason for Consultation: Pre Op Evaluation Requesting Physician: Dr. Arboleda Attending Physician: Dr. Quiroz History of Present Illness 74 year old male with PMH HTN, COPD and other problems listed below who presents to the ED for evaluation of fever and right ankle wound infection. Patient recently admitted to [facility] 05/25 - 05/30 for management of right ankle fracture after a fall. Patient underwent right ankle ORIF on 05/26/19. Patient was discharged to [facility] for rehab. Patient was seen in the ortho clinic on 06/17 and placed on Bactrim for suspected cellulitis of the incision. He was also given Mobic for pain. Patient reports he developed fevers of around 100.1 at home last night. He took Tylenol this morning. Patient reports increasing pain, redness, and swelling to the right ankle and incision. He has had some serosanguineous drainage. Patient also has underlying COPD. Reports that recently he has been coughing with some sputum production. Has some occasional shortness of breath. Says this is not unusual for him during this time of the year due to allergies. He required 2L oxygen during his recent hospitalization however patient reports he was able to be weaned off it while at [facility]. Patient denies chest pain. No lightheadedness, dizziness, diaphoresis, or syncopal events. He denies abdominal pain, nausea, vomiting, and diarrhea. No urinary symptoms. In the ED, patient is found to be hypotensive, tachycardic, WBC 13K, lactic acid 3.6, and hypoxic required 2L oxygen. Allergies Allergy/AdvReac Type Severity Reaction Status Date / Time ibuprofen Allergy Unknown HIVES Verified 06/22/19 10:45 Home Medications Home Medications Medication Instructions Recorded Confirmed Type Spiriva with HandiHaler 1 cap INHALATION DAILY PRN 11/30/17 06/22/19 History bupropion HCl 150 mg PO QAM 11/30/17 06/22/19 History clonazepam 0.5 mg PO DAILY 11/30/17 06/22/19 History gabapentin 600 mg PO TID 11/30/17 06/22/19 History lisinopril 10 mg PO DAILY 11/30/17 06/22/19 History pantoprazole 40 mg PO DAILY 11/30/17 06/22/19 History sertraline 100 mg PO BID 11/30/17 06/22/19 History tamsulosin [Flomax] 0.4 mg PO QPM 10/05/18 06/22/19 History atorvastatin 10 mg PO HS 05/26/19 06/22/19 History cetirizine 10 mg PO HS PRN 05/26/19 06/22/19 History montelukast 10 mg PO DAILY 05/26/19 06/22/19 History prazosin 5 mg PO HS 05/26/19 06/22/19 History aspirin 81 mg PO BID 42 Days #84 tab 05/30/19 06/22/19 Rx ipratropium-albuterol 3 ml INH Q6H PRN #90 ml 05/30/19 06/22/19 Rx methocarbamol 1,000 mg PO QID PRN #0 tab 05/30/19 06/22/19 Rx hydrocodone 5 mg-acetaminophen 325 1 tab PO Q6H PRN #20 tab 06/12/19 06/22/19 Rx mg tablet meloxicam 15 mg tablet 15 mg PO DAILY #30 tab 06/18/19 06/22/19 Rx sulfamethoxazole 800 1 tab PO BID 7 Days #14 tab 06/18/19 06/22/19 Rx mg-trimethoprim 160 mg tablet doxycycline hyclate 100 mg tablet 100 mg PO BID PRN #14 tab 06/21/19 06/22/19 Rx tramadol 50 mg tablet 50 mg PO Q6H PRN #30 tab 06/21/19 06/22/19 Rx budesonide-formoterol 2 puff INHALATION BID 06/22/19 06/22/19 History trazodone 300 mg PO HS 06/22/19 06/22/19 History Patient History Medical History Asthma (Chronic) BPH (benign prostatic hyperplasia) (Chronic) Chronic bronchitis Closed fracture dislocation of ankle (Acute) DDD (degenerative disc disease) (Acute) Diverticulitis HTN (hypertension) (Chronic) Intractable back pain (Acute) MRSA (methicillin resistant Staphylococcus aureus) (Chronic) negative nasal swab on 06/24/15 and 10/05/18 Obesity VIK on CPAP (Chronic) Noncompliant Prolonged QT interval CIi=422 EKG 05/25/19 PTSD (post-traumatic stress disorder) (Chronic) do not wake patient by touching, wake patient by saying name Surgical History History of back surgery (Chronic) back surgery x3 at [facility] History of partial colectomy S/P hernia repair Status post ORIF of fracture of ankle 05/26/[address] Farhan DIEZ with sedation. Family History Other Family history non-contributory Social History Preferred Language: Georgian Communication Ability: Effective [employer] Required: No Beliefs That Will Affect Care: None marital status: Current Living Situation: Spouse Other Information That Helps Us Care for You: No Feels Safe at Home: Yes Safety Concerns: Feels Safe At This Time Smoking Status: Former smoker Tobacco Type: cigarettes ; Do You Dip or Chew Tobacco: Yes ; Second Hand Exposure: No ; Hx Alcohol Use: Yes Alcohol type: beer Hx Substance Use: No Review of Systems Review of Systems: ROS per HPI, all other systems reviewed and negative Physical Exam Constitutional: WD/WN, vitals as above Eyes: PERRL, conjunctivae normal, anicteric sclerae ENMT: external ear and nose normal, oropharynx normal Respiratory: normal respiratory effort; no respiratory distress Auscultation: + rhonchi (scattered) and + wheezes (inspiratory and expiratory, bilateral) Cardiovascular: Rate/Rhythm: regular rhythm and + tachycardic Vessels: normal peripheral pulses Extremities: + edema (+1-2 edema RLE) Gastrointestinal (Abdomen): normal bowel sounds, soft, nontender, no hepatosplenomegaly Musculoskeletal: no cyanosis or clubbing, extremities motor strength 5/5 Skin: no rashes, warm and dry wound noted to right lateral ankle with surrounding erythema, some serosanguineous drainage, warm to touch Neurologic: PERRL, EOMI, accommodation nl, no face palsy, no dysarthria Psychiatric: A+Ox3, euthymic affect Results & Data Results & Data ([facility]) Vital Signs (Past 12 Hours) Vital Signs Temp Pulse Pulse Resp BP BP Pulse Ox 06/22/19 11:19 130 H 22 88/67 L 90 06/22/19 10:03 37.5 C 120 H 22 96/75 L 86 L Laboratory Results Short CBC 06/22/19 Range/Units 10:15 WBC 13.74 H (4.8-10.8) K/uL Hgb 12.7 L (14.0-18.0) g/dL Hct 39.4 L (42-52) % Plt Count 353 (130-400) K/uL BMP 06/22/19 10:15 Sodium 135 L Potassium 4.3 Chloride 105 Carbon Dioxide 23 BUN 37 H Creatinine 1.60 H Glucose 111 H Calcium 9.2 Diagnostic Findings CXR IMPRESSION: 1. No acute cardiopulmonary findings. 2. Stable cardiomegaly. RIGHT ANKLE XR IMPRESSION: 1. Status post internal fixation of a trimalleolar fracture. Hardware intact. No radiographic evidence for osteomyelitis. 2. Soft tissue swelling with soft tissue gas. This gas could be due to an open wound or recent procedure. However, a gas-forming infectious process could appear similar.
--- NOTE | 2019-06-22 12:15 | Progress Notes ---
DATE: 06/22/2019 The patient is seen in conjunction with Meaghan Cook. She and I have seen and evaluated this patient together and I am in agreement with the plan. I have spoken with Dr. Real about the patient's care. He is 4 weeks status post ORIF of a right ankle trimalleolar fracture dislocation. This was treated with medial deltoid ligament repair and ORIF of the fibula. The patient has reported an approximate 2-week history of some redness, swelling and progressive problems with the wound including drainage. He has been seen and evaluated with Dr. Real and he had been placed on some antibiotics. The patient appears slightly confused and his did note that he has been hallucinating. He is awake, alert and oriented x3 today, but he does talk about [place] and remote things, which are really not related to the current situation. He has a dopplerable posterior tibial pulse. There is 5/5 ankle and toe plantar flexion and dorsiflexion strength. The ankle is swollen with erythema. There is an area of 2-3 cm long and 1-1.5 cm wide over the distal portion where there is wound necrosis and some serous drainage. I think the plate is immediately palpable beneath this. His x-rays show intact internal fixation and no evidence of acute osteomyelitis. The posterior malleolar fracture is small and slightly displaced. The ankle mortise and syndesmosis are intact. His labs were reviewed showing a white count of 14, hematocrit of 39. His platelets are normal. PRP is noted. He now has renal insufficiency. His lactate is pending and his sed rate and C-reactive protein are very high. He is dressed into a posterior splint, which is well-padded. Keep pressure off of the wound. I have recommended that he have an I and D done. This is probably going to result in exposure of the plate. Consideration can be given to removal of the plate and application of a wound VAC. We may consider transfer to a tertiary care center for more definitive wound management if plastic surgery is felt to be necessary. Currently, the patient is being evaluated for sepsis and until that occurs, we will splint him, elevate it, have him be n.p.o. and treat with intravenous antibiotics. Once he is medically stable, we will proceed with surgical treatment as appropriate and keep Dr. Real informed of the patient's situation. I am taking care of the patient because of the coronavirus pandemic.
--- NOTE | 2019-06-22 12:23 | XRay Report ---
XR ankle RT min 3V routine CLINICAL HISTORY: infection COMPARISON: Right ankle radiographs June 12, 2019. FINDINGS: Distal fibular plate and screw fixation is noted. The hardware is intact. Alignment of the distal right fibular fracture is unchanged. Mildly displaced fracture of the posterior distal right tibia is noted. Soft tissue gas is present within the medial and lateral aspects of the right ankle. There is extensive vascular calcification. Soft tissue swelling is present. No unexpected radiopaque foreign bodies are noted. No ankle mortise widening is noted. There is no radiographic evidence for o steomyelitis. IMPRESSION: 1. Status post internal fixation of a trimalleolar fracture. Hardware intact. No radiographic evidenc e for osteomyelitis. 2. Soft tissue swelling with soft tissue gas. This gas could be due to an open wound or recent proced ure. However, a gas-forming infectious process could appear similar. ACT 112: Negative or not required by law. Electronically signed by: Diego Jim M.D. 06/22/2019 12:22 PM
--- NOTE | 2019-06-22 12:26 | XRay Report ---
XR chest 1V portable CLINICAL HISTORY: Preoperative evaluation. COMPARISON STUDY: Chest CT May 29, 2019. FINDINGS: Lung volumes are normal. Lungs are clear. There is no pneumothorax or pleural effusion. Mil d to moderate cardiomegaly size is unchanged. Mediastinal contours are normal. There is no evidence f or pulmonary edema. IMPRESSION: 1. No acute cardiopulmonary findings. 2. Stable cardiomegaly. ACT 112: Negative or not required by law. Electronically signed by: Diego Jim M.D. 06/22/2019 12:24 PM
[2019-06-22] MEDS ORDERED: PIPERACILLIN/TAZOBACTAM 4.5 GM/120 ML BAG IV ONE (12:30)
[2019-06-22] MEDS: DAPTOmycin 450 MG in SYRINGE 0 ML IV SCH (12:39)
[2019-06-22] MEDS ORDERED: XOPENEX/ATROVENT 1.25mg/0.5MG NEB COMBO NEB SCH (13:00)
[2019-06-22] MEDS ORDERED: CONSULT PHARMACY STA (14:10)
[2019-06-22] MEDS ORDERED: DAPTOMYCIN CONSULT ACTIVE PRN (14:41)
[2019-06-22] MEDS: GABAPENTIN 300 MG CAP PO SCH ×2 (14:47→20:41)
[2019-06-22] MEDS: FLUTICASONE/VILANTEROL 200/25MCG 14 PUFFS/INHALER INH SCH (14:47)
[2019-06-22] MEDS: SODIUM CHLORIDE 0.9% 1000ML 1,000 ML IV SCH (14:48)
[2019-06-22] MEDS: TRAMADOL HCL 50 MG TABLET PO PRN (16:24)
[2019-06-22] MEDS: PIPERACILLIN/TAZOBACTAM 4.5 GM in DEXTROSE 5% 100 ML IV SCH (17:12)
[2019-06-22] MEDS: LEVALBUTEROL 1.25MG/0.5ML NEB INH SCH (19:03)
[2019-06-22] MEDS: IPRATROPIUM BROMIDE NEB SOLN 0.02% 2.5 ML VIAL INH SCH (19:03)
[2019-06-22] MEDS: methylPREDNISolone 40 MG in SYRINGE 0 ML IV SCH (20:41)
[2019-06-22] MEDS: TRAZODONE HCL 100 MG TAB PO SCH (20:42)
[2019-06-22] MEDS: PRAZOSIN HCL 1 MG CAP PO SCH (20:43)
[2019-06-22] MEDS: SERTRALINE HCL 100 MG TABLET PO SCH (20:44)
[2019-06-22] MEDS: guaiFENesin 600 MG TABCR PO SCH (20:44)
[2019-06-22] MEDS: TAMSULOSIN HCL 0.4 MG CAP PO SCH (20:45)
[2019-06-23] MEDS: SODIUM CHLORIDE 0.9% 1000ML 1,000 ML IV SCH ×4 (00:08→21:39)
[2019-06-23] MEDS ORDERED: METOPROLOL TARTRATE 25 MG TAB PO SCH (00:45)
[2019-06-23] MEDS ORDERED: MAGNESIUM SULFATE / D5W 1 GM/100 ML BAG IV ONE (01:00)
[2019-06-23] MEDS: LEVALBUTEROL 1.25MG/0.5ML NEB INH SCH ×4 (01:06→19:17)
[2019-06-23] MEDS: IPRATROPIUM BROMIDE NEB SOLN 0.02% 2.5 ML VIAL INH SCH ×4 (01:06→19:17)
[2019-06-23 01:08] LABS: Eosinophils # (auto) 0.02 K/uL (0-0.5); Eosinophils % (auto) 0.2 %; Hematocrit (blood only) 35.9 % (42-52); Hemoglobin 11.5 g/dL (14.0-18.0); Immature Granulocytes # (auto) 0.05 K/uL (0.00-0.02); Immature Granulocytes % (auto) 0.5 %; Lymphocytes # (auto) 0.32 K/uL (1.2-3.4); Lymphocytes % (auto) 3.1 %; Mean Corpuscular Hemoglobin 26.3 pg (25-34); Mean Corpuscular Volume 82.2 fL (80-100); Mean Platelet Volume 9.8 fL (7.4-10.4); Monocytes # (auto) 0.28 K/uL (0.11-0.59); Monocytes % (auto) 2.7 %; Neutrophils # (auto) 9.55 K/uL (1.4-6.5); Neutrophils % (auto) 93.5 %; Platelet Count 310 K/uL (130-400); RDW Coefficient of Variation 15.5 % (11.5-14.5); RDW Standard Deviation 47.1 fL (36.4-46.3); Red Blood Count 4.37 M/uL (4.7-6.1); White Blood Count 10.22 K/uL (4.8-10.8)
[2019-06-23 01:19] LABS: Partial Thromboplastin Ratio 1.4; Partial Thromboplastin Time 38.6 Seconds (21.0-31.0)
[2019-06-23 01:38] LABS: BUN Creatinine Ratio 27.8 (10-20); Calcium 8.7 mg/dl (8.5-10.1); Creatinine Clr Calc Pharmacy 54.2 ml/min; Est GFR (Non-African American) 53.5; Potassium 5.5 mmol/L (3.5-5.1); Thyroid Stimulating Hormone 0.315 uIu/ml (0.300-4.500)
[2019-06-23] MEDS ORDERED: DEXTROSE 50% 50 ML SYRINGE IV ONE (01:44)
[2019-06-23] MEDS ORDERED: INSULIN HUMAN REGULAR PER UNIT 10 UNITS in SYRINGE 9.9 ML IV STA (01:57)
--- NOTE | 2019-06-23 02:01 | Communication Note ---
Date of Service: June 23, 2019 Overnight developments : Made aware by RN of A. fib/a flutter on the monitor around 11:45 PM. Patient asymptomatic. Spontaneous conversion to normal sinus rhythm at 12:30 AM as per RN. Cardiac rate later noted to be 50s as per RN. AP PAF Check electrolytes, TSH Initiate low-dose beta-mary if with recurrent heart rate elevation. TTE, Cardiology consult for PAF if okay with Orthopedics. Will relay to AM provider. ADDENDUM : Case discussed with Dr. Arboleda (Orthopedics primary service). Agreeable to TTE, Cardio consult for PAF. Will request AM hospitalist to update Dr. Arboleda of preop evaluation status in a.m.
[2019-06-23] MEDS: PIPERACILLIN/TAZOBACTAM 4.5 GM in DEXTROSE 5% 100 ML IV SCH ×3 (02:50→17:16)
[2019-06-23] MEDS ORDERED: GLUCOSE 10 TABS/TUBE PO PRN (04:07)
[2019-06-23] MEDS ORDERED: CARBOHYDRATES FOR HYPOGLYCEMIA PO PRN (04:07)
[2019-06-23] MEDS ORDERED: GLUCOSE 40% GEL 15 GM TUBE PO PRN (04:07)
[2019-06-23] MEDS ORDERED: INSULIN GLARGINE SOLOSTAR 100 UNITS/ML 3 ML PEN SC STA (04:07)
[2019-06-23] MEDS ORDERED: GLUCAGON FOR INJ 1 MG VIAL SQ PRN (04:07)
[2019-06-23] MEDS ORDERED: DEXTROSE 50% 50 ML SYRINGE IV PRN (04:07)
[2019-06-23] MEDS: methylPREDNISolone 40 MG in SYRINGE 0 ML IV SCH ×3 (04:57→19:53)
[2019-06-23] MEDS: INSULIN ASPART 100 UNITS/ML 3 ML PEN SC SCH ×6 (04:58→21:41)
[2019-06-23] MEDS: SERTRALINE HCL 100 MG TABLET PO SCH ×2 (07:42→19:54)
[2019-06-23] MEDS: GABAPENTIN 300 MG CAP PO SCH ×3 (07:43→19:55)
[2019-06-23] MEDS: BuPROPion XL 150 MG TABCR PO SCH (07:43)
[2019-06-23] MEDS: guaiFENesin 600 MG TABCR PO SCH ×2 (07:43→19:55)
[2019-06-23] MEDS: PANTOprazole 40 MG TAB PO SCH (07:43)
--- NOTE | 2019-06-23 08:42 | Hospitalist Progress Note ---
Date of Service June 23, 2019 Assessment & Plan (1) Severe sepsis: (2) Postoperative wound infection: afebrile, BP stable now leukocytosis resolved, lactic acidosis resolved blood cultures pending preop eval: sepsis and COPD exacerbation much improved management of atrial flutter/atrial fibrillation awaiting Cardiology evaluation, prior to planned I&D today (3) Acute on chronic respiratory failure with hypoxia: (4) COPD exacerbation: CXR: no pneumonia wheezing significantly improved still on 2 L via NC contineu Solumedrol, Nebs (5) Atrial fibrillation and flutter: no history in the past likely paroxysmal, related to Sepsis, COPD exacerbation converted to SR spontaneously echo ordered will monitor electrolytes Cardiology consulted prior to planned surgery (6) TARUN (acute kidney injury): -Creatinine 1.6 -Likely multifactorial secondary to recent prescription of Bactrim and meloxicam, in addition to sepsis resolved (7) HTN (hypertension): -Hypotensive on presentation -Holding lisinopril - BP improving (8) BPH (benign prostatic hyperplasia): -Continue tamsulosin and prazosin (9) VIK (obstructive sleep apnea): -Noncompliant with CPAP -Recommend outpatient follow-up with sleep or pulmonary medicine (10) DVT prophylaxis: -SCDs due to planned invasive procedure Admission and Anticipated Discharge Date Admission Date: June 22, 2019 Subjective ff up for sepsis, right ankle infection seen sitting up in bed, sleeping but easily awakened was atrial flutter/a fib in RVR, converted to SR overnight not in distress, comfortable states he feels better overall no active dyspnea, cough has resolved no fever/chills, sputum no chest pain, palpitations no abdominal pain, nausea/vomiting minimal right leg discomfort Review of Systems Review of Systems: All systems reviewed & are unremarkable except as noted in HPI & below Physical Exam Physical Exam: General- oriented x 3, not in distress, speaks in sentences with no effort or accessory muscle use Eyes- anicteric Neck- no JVD Lungs- faint wheeze on the right no crackles Heart- normal rate, regular rhythm; no murmurs Abdomen- normal bowel sounds, nondistended, soft, nontender Extremities- RLE: heavy dressing in place LLE: essentially normal Neuro- alert, oriented x 3; no gross focal neurologic deficits Skin- warm & dry Results & Data Results & Data ([facility]) Vital Signs (Past 12 Hours) Vital Signs Temp Pulse Pulse Resp BP Pulse Ox 06/23/19 07:12 71 18 95 06/23/19 07:00 36.4 C L 76 24 132/84 96 06/23/19 06:47 36.3 C L 73 16 125/75 92 06/23/19 03:39 36.4 C L 73 20 125/77 95 06/23/19 01:47 36.5 C 06/23/19 01:28 76 76 16 92 06/22/19 23:43 107 H 06/22/19 23:12 96 H 20 91 06/22/19 22:03 36.4 C L 106 H 20 130/86 94 Laboratory Results Laboratory Results - last 24 hr 06/22/19 06/22/19 06/22/19 10:15 10:15 10:15 WBC 13.74 H RBC 4.85 Hgb 12.7 L Hct 39.4 L MCV 81.2 MCH 26.2 MCHC 32.2 RDW Std Deviation 45.7 RDW Coeff of Hector 15.4 H Plt Count 353 MPV 10.6 H Immature Gran % (Auto) 0.4 Neut % (Auto) 85.3 Lymph % (Auto) 2.8 Carson % (Auto) 9.1 Eos % (Auto) 2.3 Baso % (Auto) 0.1 Immature Gran # (Auto) 0.05 H Neut # (Auto) 11.71 H Lymph # (Auto) 0.39 L Carson # (Auto) 1.25 H Eos # (Auto) 0.32 Baso # (Auto) 0.02 ESR > 90 H PT INR APTT PTT Ratio Sodium 135 L Potassium 4.3 Chloride 105 Carbon Dioxide 23 Anion Gap 7.0 BUN 37 H Creatinine 1.60 H Est Cr Clr Drug Dosing 44.2 Est GFR ( Amer) 49.2 Est GFR (Non-Af Amer) 42.4 BUN/Creatinine Ratio 22.9 H Glucose 111 H POC Glucose Estimat Average Glucose Hemoglobin A1c Lactate Calcium 9.2 Magnesium Total Creatine Kinase C-Reactive Protein 31.80 H TSH Nasal Screen MRSA (PCR) Ethyl Alcohol mg/dL Blood Type Antibody Screen 06/22/19 06/22/19 06/22/19 11:24 11:24 11:25 WBC RBC Hgb Hct MCV MCH MCHC RDW Std Deviation RDW Coeff of Hector Plt Count MPV Immature Gran % (Auto) Neut % (Auto) Lymph % (Auto) Carson % (Auto) Eos % (Auto) Baso % (Auto) Immature Gran # (Auto) Neut # (Auto) Lymph # (Auto) Carson # (Auto) Eos # (Auto) Baso # (Auto) ESR PT INR APTT PTT Ratio Sodium Potassium Chloride Carbon Dioxide Anion Gap BUN Creatinine Est Cr Clr Drug Dosing Est GFR ( Amer) Est GFR (Non-Af Amer) BUN/Creatinine Ratio Glucose POC Glucose Estimat Average Glucose Hemoglobin A1c Lactate 3.6 H* Calcium Magnesium Total Creatine Kinase C-Reactive Protein TSH Nasal Screen MRSA (PCR) Ethyl Alcohol mg/dL < 3.0 Blood Type O Positive Antibody Screen NEGATIVE 06/22/19 06/22/19 06/23/19 11:35 13:57 00:50 WBC 10.22 RBC 4.37 L Hgb 11.5 L Hct 35.9 L MCV 82.2 MCH 26.3 MCHC 32.0 RDW Std Deviation 47.1 H RDW Coeff of Hector 15.5 H Plt Count 310 MPV 9.8 Immature Gran % (Auto) 0.5 Neut % (Auto) 93.5 Lymph % (Auto) 3.1 Carson % (Auto) 2.7 Eos % (Auto) 0.2 Baso % (Auto) 0.0 Immature Gran # (Auto) 0.05 H Neut # (Auto) 9.55 H Lymph # (Auto) 0.32 L Carson # (Auto) 0.28 Eos # (Auto) 0.02 Baso # (Auto) 0.00 ESR PT INR APTT PTT Ratio Sodium Potassium Chloride Carbon Dioxide Anion Gap BUN Creatinine Est Cr Clr Drug Dosing Est GFR ( Amer) Est GFR (Non-Af Amer) BUN/Creatinine Ratio Glucose POC Glucose Estimat Average Glucose Hemoglobin A1c Lactate 0.8 Calcium Magnesium Total Creatine Kinase C-Reactive Protein TSH Nasal Screen MRSA (PCR) Negative Ethyl Alcohol mg/dL Blood Type Antibody Screen 06/23/19 06/23/19 06/23/19 00:50 00:50 02:37 WBC RBC Hgb Hct MCV MCH MCHC RDW Std Deviation RDW Coeff of Hector Plt Count MPV Immature Gran % (Auto) Neut % (Auto) Lymph % (Auto) Carson % (Auto) Eos % (Auto) Baso % (Auto) Immature Gran # (Auto) Neut # (Auto) Lymph # (Auto) Carson # (Auto) Eos # (Auto) Baso # (Auto) ESR PT INR APTT 38.6 H PTT Ratio 1.4 Sodium 138 Potassium 5.5 H D Chloride 110 H Carbon Dioxide 24 Anion Gap 4.0 BUN 37 H Creatinine 1.32 Est Cr Clr Drug Dosing 54.2 Est GFR ( Amer) 62.0 Est GFR (Non-Af Amer) 53.5 BUN/Creatinine Ratio 27.8 H Glucose 162 H POC Glucose 199 H Estimat Average Glucose Hemoglobin A1c Lactate Calcium 8.7 Magnesium 2.0 Total Creatine Kinase 35 L C-Reactive Protein TSH 0.315 Nasal Screen MRSA (PCR) Ethyl Alcohol mg/dL Blood Type Antibody Screen 06/23/19 06/23/19 06/23/19 03:36 03:59 05:57 WBC RBC Hgb Hct MCV MCH MCHC RDW Std Deviation RDW Coeff of Hector Plt Count MPV Immature Gran % (Auto) Neut % (Auto) Lymph % (Auto) Carson % (Auto) Eos % (Auto) Baso % (Auto) Immature Gran # (Auto) Neut # (Auto) Lymph # (Auto) Carson # (Auto) Eos # (Auto) Baso # (Auto) ESR PT INR APTT PTT Ratio Sodium Potassium 5.1 Chloride Carbon Dioxide Anion Gap BUN Creatinine Est Cr Clr Drug Dosing Est GFR ( Amer) Est GFR (Non-Af Amer) BUN/Creatinine Ratio Glucose POC Glucose 207 H 238 H Estimat Average Glucose Hemoglobin A1c Lactate Calcium Magnesium Total Creatine Kinase C-Reactive Protein TSH Nasal Screen MRSA (PCR) Ethyl Alcohol mg/dL Blood Type Antibody Screen 06/23/19 06/23/19 06/23/19 05:57 07:30 08:44 WBC RBC Hgb Hct MCV MCH MCHC RDW Std Deviation RDW Coeff of Hector Plt Count MPV Immature Gran % (Auto) Neut % (Auto) Lymph % (Auto) Carson % (Auto) Eos % (Auto) Baso % (Auto) Immature Gran # (Auto) Neut # (Auto) Lymph # (Auto) Carson # (Auto) Eos # (Auto) Baso # (Auto) ESR PT 11.7 INR 1.1 APTT 37.6 H PTT Ratio 1.3 Sodium Potassium Chloride Carbon Dioxide Anion Gap BUN Creatinine Est Cr Clr Drug Dosing Est GFR ( Amer) Est GFR (Non-Af Amer) BUN/Creatinine Ratio Glucose POC Glucose 118 H Estimat Average Glucose Pending Hemoglobin A1c Pending Lactate Calcium Magnesium Total Creatine Kinase C-Reactive Protein TSH Nasal Screen MRSA (PCR) Ethyl Alcohol mg/dL Blood Type Antibody Screen
[2019-06-23 09:07] LABS: INR 1.1 (0.9-1.1); Partial Thromboplastin Ratio 1.3; Partial Thromboplastin Time 37.6 Seconds (21.0-31.0); Prothrombin Time 11.7 Seconds (9.0-12.0)
--- NOTE | 2019-06-23 09:08 | Progress Notes ---
DATE: 06/23/2019 I was contacted by Dr. Cai this morning. He was the hospitalist gift consultant last night. I also spoke with Dr. Quiroz this morning. The patient had AFib and atrial flutter with a rapid ventricular response which spontaneously converted last night. They have recommended a cardiac evaluation and echo. Surgery is held until that is accomplished. The patient is awake, alert and oriented today, although he does not recall much of that went on yesterday. He notes pain in the ankle and does acknowledge that he has been having problems with the right ankle in terms of infection and drainage. I discussed with him what we think is going on in terms of wound necrosis and infection and the recommendation for surgery. We talked about probable removal of the plate and screws. The other option would be a flap which would require transfer to a tertiary care facility and will be much more complicated. At this point, 1 month out from the surgery, there should be some reasonable wound healing. Additionally, the medial side has been repaired which should provide adequate stability. The posterior fracture is small and the syndesmosis is radiographically intact. Therefore, hopefully removing the plate would eliminate this as a potential source of ongoing infection. The patient reports numbness over the toes, which he reports has been going on since surgery. His capillary refill is less than 2 seconds. He can flex and extend the toes. He is currently in a splint. His APTT test is 38.6, which is elevated. We will recheck a PT/INR and an APTT this morning. He has been afebrile and his vital signs are stable. He is currently not tachycardic and his blood pressure is within normal limits. Hematocrit is 36, platelet count normal, PRP is noted, his renal function is improved. Lactate yesterday was 3.6. We will continue n.p.o. and if able, plan surgery later today. I have been in communication with Dr. Real and discussed with him the patient's care and he is in agreement with the plan. We will coordinate care with Medicine and Cardiology.
[2019-06-23] MEDS ORDERED: GENTAMICIN SULFATE 40 MG/ML 2 ML VIAL ONE (09:15)
[2019-06-23] MEDS ORDERED: BACITRACIN INJ 50,000 UNIT VIAL ONE ×2 (09:16→13:07)
[2019-06-23] MEDS ORDERED: VANCOMYCIN HCL 1000MG/20ML VIAL ONE (09:16)
[2019-06-23] MEDS: OXYCODONE/ACETAMINOPHEN 5mg/325mg TAB PO PRN (09:34)
--- NOTE | 2019-06-23 10:24 | Electrocardiogram Report ---
Test Reason : Blood Pressure : / mmHG Vent. Rate : 135 BPM Atrial Rate : 286 BPM P-R Int : 000 ms QRS Dur : 070 ms QT Int : 300 ms P-R-T Axes : 000 032 062 degrees QTc Int : 450 ms Atrial flutter with variable A-V block Nonspecific ST and T wave abnormality Abnormal ECG When compared with ECG of 26-MAY-2019 04:05, Significant changes have occurred Confirmed by Fernie Quiroga ([id number]) on 06/23/2019 10:23:39 AM Referred By: REFERRED SELF Confirmed By:Fernie Quiroga
[2019-06-23] MEDS ORDERED: ROPIVACAINE 0.5% 5 MG/ML 30 ML VIAL ONE (10:38)
--- NOTE | 2019-06-23 10:45 | Electrocardiogram Report ---
Test Reason : Blood Pressure : / mmHG Vent. Rate : 089 BPM Atrial Rate : 081 BPM P-R Int : 000 ms QRS Dur : 084 ms QT Int : 382 ms P-R-T Axes : 000 038 066 degrees QTc Int : 464 ms Atrial fibrillation Abnormal ECG When compared with ECG of 22-JUN-2019 11:33, (unconfirmed) Atrial fibrillation has replaced Atrial flutter Vent. rate has decreased BY 46 BPM Nonspecific T wave abnormality no longer evident in Lateral leads Confirmed by Fernie Quiroga ([id number]) on 06/23/2019 10:45:42 AM Referred By: REFERRED SELF Confirmed By:Fernie Quiroga
[2019-06-23] MEDS ORDERED: ALBUT/IPRATROP 3MG/0.5MG NEB 3 ML VIAL INH STA (10:47)
[2019-06-23] MEDS: DAPTOmycin 450 MG in SYRINGE 0 ML IV SCH (11:01)
[2019-06-23] MEDS ORDERED: PROPOFOL IV EMULSION 10 MG/ML 100 ML VIAL IV ONE (11:03)
[2019-06-23] MEDS ORDERED: ATROPINE SULFATE 0.1 MG/ML 10ML SYR IV PRN (11:06)
[2019-06-23] MEDS ORDERED: ePHEDrine sulfate 50 MG/ML AMP IV PRN (11:06)
[2019-06-23] MEDS ORDERED: fentaNYL citrate 100 MCG/2 ML VIAL IV PRN (11:06)
[2019-06-23] MEDS ORDERED: ONDANSETRON INJ 2 MG/ML 2 ML VIAL IV PRN ×2 (11:06→16:02)
[2019-06-23] MEDS ORDERED: PROPOFOL IV EMULSION 10 MG/ML 20 ML VIAL IV ONE (11:06)
[2019-06-23] MEDS ORDERED: MIDAZOLAM HCL 1 MG/ML 2ML VIAL ONE (11:06)
[2019-06-23] MEDS ORDERED: ONDANSETRON INJ 2 MG/ML 2 ML VIAL ONE (11:06)
[2019-06-23] MEDS ORDERED: HYDROmorphone INJ 1 MG/ML SYRINGE IV PRN (11:06)
[2019-06-23] MEDS ORDERED: fentaNYL citrate 100 MCG/2 ML VIAL ONE (11:06)
[2019-06-23] MEDS: METOPROLOL TARTRATE 25 MG TAB PO SCH ×2 (11:19→19:57)
--- NOTE | 2019-06-23 11:55 | XCELERA ---
[id number]
[2019-06-23] MEDS ORDERED: CEFAZOLIN 250 MG/ML 1 GM VIAL ONE (12:36)
--- NOTE | 2019-06-23 12:36 | Cardiology Consultation ---
Date of Consultation June 23, 2019 Assessment & Plan (1) Paroxysmal atrial fibrillation: (2) Preop cardiovascular exam: (3) Postoperative wound infection: (4) Asthma: I had a long discussion with the patient regard the natural history and pathophysiology of atrial fibrillation. He has no known history of dysrhythmia, CVA, diabetes, hypertension, or congestive heart failure. Episode of atrial fibrillation was transient and possibly associated with current infectious process/febrile illness. Resting 2D transthoracic echocardiogram demonstrates preserved LV systolic function. I would not recommend intravenous anticoagulation currently. Recommend low-dose beta-mary therapy, 12.5 mg twice daily. He is considered moderate perioperative cardiovascular risk. He may proceed with orthopedic surgery at this time. Discussed further evaluation/risk medication regarding his chronic dyspnea on exertion with pharmacologic stress testing in the outpatient setting when infectious/orthopedic issues have resolved. Thank you for allowing to participate in the care of your patient. History of Present Illness Reason for Consultation: PAF Requesting Physician: Dr. Arboleda Attending Physician: Owen Arboleda MD History of Present Illness 74-year-old patient admitted through the emergency department due to orthopedic hardware infection involving the right ankle. Patient reports fever and "loss of time" for several days. He does not recall coming to the ER. Per review of telemetry, he developed rapid atrial fibrillation yesterday. Denies prior history of atrial fibrillation. He spontaneously converted to sinus rhythm and has remained in sinus rhythm this morning. Patient denies any palpitations or chest discomfort. Reports chronic dyspnea on exertion, wheezing, and occasional chest tightness. Reports a long history of COPD and reactive airways disease for which he uses inhalers in the outpatient setting. Chronic dyspnea on exertion and functional capacity unchanged for more than 5 years. Typically plays golf and walks for exercise. Denies prior history of diabetes, cerebrovascular accident, congestive heart failure, or hypertension. Patient currently resting comfortably and asymptomatic. Recently received tramadol for treatment of right lower extremity discomfort. Pain is controlled at this time. Allergies Allergy/AdvReac Type Severity Reaction Status Date / Time ibuprofen Allergy Unknown HIVES Verified 06/22/19 10:45 Home Medications Home Medications Medication Instructions Recorded Confirmed Type Spiriva with HandiHaler 1 cap INHALATION DAILY PRN 11/30/17 06/22/19 History bupropion HCl 150 mg PO QAM 11/30/17 06/22/19 History clonazepam 0.5 mg PO DAILY 11/30/17 06/22/19 History gabapentin 600 mg PO TID 11/30/17 06/22/19 History lisinopril 10 mg PO DAILY 11/30/17 06/22/19 History pantoprazole 40 mg PO DAILY 11/30/17 06/22/19 History sertraline 100 mg PO BID 11/30/17 06/22/19 History tamsulosin [Flomax] 0.4 mg PO QPM 10/05/18 06/22/19 History atorvastatin 10 mg PO HS 05/26/19 06/22/19 History cetirizine 10 mg PO HS PRN 05/26/19 06/22/19 History montelukast 10 mg PO DAILY 05/26/19 06/22/19 History prazosin 5 mg PO HS 05/26/19 06/22/19 History aspirin 81 mg PO BID 42 Days #84 tab 05/30/19 06/22/19 Rx ipratropium-albuterol 3 ml INH Q6H PRN #90 ml 05/30/19 06/22/19 Rx methocarbamol 1,000 mg PO QID PRN #0 tab 05/30/19 06/22/19 Rx hydrocodone 5 mg-acetaminophen 325 1 tab PO Q6H PRN #20 tab 06/12/19 06/22/19 Rx mg tablet meloxicam 15 mg tablet 15 mg PO DAILY #30 tab 06/18/19 06/22/19 Rx sulfamethoxazole 800 1 tab PO BID 7 Days #14 tab 06/18/19 06/22/19 Rx mg-trimethoprim 160 mg tablet doxycycline hyclate 100 mg tablet 100 mg PO BID PRN #14 tab 06/21/19 06/22/19 Rx tramadol 50 mg tablet 50 mg PO Q6H PRN #30 tab 06/21/19 06/22/19 Rx budesonide-formoterol 2 puff INHALATION BID 06/22/19 06/22/19 History trazodone 300 mg PO HS 06/22/19 06/22/19 History Patient History Medical History Asthma (Chronic) BPH (benign prostatic hyperplasia) (Chronic) Chronic bronchitis Closed fracture dislocation of ankle (Acute) DDD (degenerative disc disease) (Acute) Diverticulitis HTN (hypertension) (Chronic) Intractable back pain (Acute) MRSA (methicillin resistant Staphylococcus aureus) (Chronic) negative nasal swab on 06/24/15 and 10/05/18 Obesity VIK on CPAP (Chronic) Noncompliant Prolonged QT interval NOp=712 EKG 05/25/19 PTSD (post-traumatic stress disorder) (Chronic) do not wake patient by touching, wake patient by saying name Surgical History History of back surgery (Chronic) back surgery x3 at [facility] History of partial colectomy S/P hernia repair Status post ORIF of fracture of ankle 05/26/[address] Farhan DIEZ with sedation. Family History Other Family history non-contributory Social History Preferred Language: Greek Communication Ability: Effective Email Marketing Intern Required: No Beliefs That Will Affect Care: None marital status: Current Living Situation: Spouse Other Information That Helps Us Care for You: No Feels Safe at Home: Yes Safety Concerns: Feels Safe At This Time Smoking Status: Former smoker Tobacco Type: cigarettes ; Do You Dip or Chew Tobacco: Yes ; Second Hand Exposure: No ; Hx Alcohol Use: Yes Alcohol type: beer Hx Substance Use: No Review of Systems Review of Systems: All systems reviewed & are unremarkable except as noted in HPI & below Physical Exam Constitutional: well developed and + obese Respiratory: Auscultation: + wheezes (Bilateral expiratory); no crackles, no rales and no rhonchi Cardiovascular: Rate/Rhythm: regular rate and regular rhythm Heart Sounds: normal S1 and normal S2; no murmur and no cardiac rub Vessels: no JVD Extremities: no edema Gastrointestinal (Abdomen): Inspection/Auscultation: normal bowel sounds; abdomen not distended Percussion/Palpation: abdomen soft; abdomen nontender, no guarding and abdomen not rigid Musculoskeletal: Extremities: strength 5/5 throughout Skin: + wound (Right lower extremity. Dressing clean, dry, intact) Neurologic: moves all extremities; no focal motor deficits Speech / Cognition: normal speech Psychiatric: A+Ox3, euthymic affect Results & Data ([facility]) Vital Signs (Past 12 Hours) Vital Signs Temp Pulse Pulse Pulse Resp BP Pulse Ox 06/23/19 12:08 76 16 97 06/23/19 11:08 36.5 C 78 18 139/80 92 06/23/19 08:00 80 06/23/19 07:12 71 18 95 06/23/19 07:00 36.4 C L 76 24 132/84 96 06/23/19 06:47 36.3 C L 73 16 125/75 92 06/23/19 03:39 36.4 C L 73 20 125/77 95 06/23/19 01:47 36.5 C 06/23/19 01:28 76 76 16 92 (1) Asthma Asthma complication type: unspecified Asthma persistence: unspecified Asthma severity: unspecified severity Qualified Code(s): J45.909 - Unspecified asthma, uncomplicated
--- NOTE | 2019-06-23 14:19 | Fluoroscopy Report ---
FL ankle RT 2V CLINICAL HISTORY: I AND D OF RIGHT ANKLE INFECTION COMPARISON STUDY: 05/26/2019 FLUOROSCOPY TIME: 3 seconds NUMBER OF FLUOROSCOPIC IMAGES: 3 FINDINGS: Images intensifier utilized for hardware removal IMPRESSION: Image intensifier utilized for hardware removal ACT 112: Negative or not required by law. The above report was generated using voice recognition software. It may contain grammatical, syntax or spelling errors. Electronically signed by: Marcelo Chamberlain M.D. 06/23/2019 2:17 PM
--- NOTE | 2019-06-23 14:36 | Operative Report ---
Post Operative Report Pre & Post Diagnosis Operation Date: 06/23/19 12:30 Pre-Op Diagnosis: POST-OPERATIVE RIGHT ANKLE WOUND INFECTION Post-Op Diagnosis: POST-OPERATIVE RIGHT ANKLE WOUND INFECTION I identified the patient and participated in the time-out.: Yes Procedure Operation Date: 06/23/19 12:30 Actual Procedures p Incision and Drainage Right ankle, removal of hardware, arthrotomy(Right) - Owen Arboleda MD Surgeon Owen Arboleda MD Silverer Meaghan Cook Estimated Blood Loss 20 Findings Consistent with Post-Op Diagnosis Medial and lateral wound necrosis with deep postoperative wound infection. Partially healed fracture of distal fibula. Specimens Multiple cultures from the medial and lateral ankle incisions and ankle joint Drains 1 medium Hemovac drain in the ankle joint Anesthesia Type MAC Regional Complications none Disposition Accompanied Patient To Recovery: No Disposition: Recovery Room Indications Patient is a 74-year-old male. He is 1 month status post a bimalleolar fracture dislocation of the right ankle. This was treated with open reduction internal fixation of the distal fibula ankle reduction and repair of the deltoid ligament by Dr. Real. The patient has had some problems with the wound the last week or 2 as well as some drainage. He was admitted to the hospital yesterday with sepsis and a infected necrotic lateral ankle wound. Care has been coordinated with medicine cardiology and with Dr. Real. I have been in touch with the patient's . Treatment options risks and benefits have been discussed and we have agreed upon a plan to do an irrigation and debridement likely remove the hardware and put in some antibiotic beads. Due to the loss of soft tissue the plate will be exposed and needs to be removed or covered with a flap. Wound VAC likely necessary. The patient's sepsis status has been corrected. He had a heart arrhythmia and is been seen and evaluated by cardiology. Description of Procedure Informed consent obtained. Patient identified. He identified the operative site as the right ankle. I marked with my initials. A preoperative surgical timeout performed and a preop dose of IV antibiotics given. He was taken to the operating room positioned supine on the OR table with a bump under the right hip. A tourniquet was placed about the right thigh. The right lower extremity was pre-scrubbed with Betadine and prepped and draped in the usual sterile fashion. The limb was exsanguinated with gravity and the tourniquet inflated to 250 mmHg. The tourniquet was let down after about 60 minutes of inflation. DVT prophylaxis with SCDs intraoperatively and postoperatively with early mobility and Lovenox. The swelling and erythema was markedly improved compared to previous. There was unfortunately some noted fluctuance and a slight bit of drainage on the medial side. The medial incision was then sharply opened through the skin. There was partial thickness skin loss with eschar noted which was 2-1/2 cm long and 1/2- 3/4 of a centimeter wide. This was excised. Creamy white purulence was noted and a culture was obtained sent for Gram stain aerobic and anaerobic analysis. Labeled medial. This area was then debrided with rongeur and and a pulse lavage with 500 cc of sterile normal saline containing antibiotics was done. The suture for the deltoid ligament repair was noted. As this was [place] thin purulence I elected to go ahead and remove the suture entirely. At least part o f the deltoid ligament remained intact. I then extended the incision several centimeters proximally plantar dissected down to the level of the tibia. I then dissected anteriorly and made a medial arthrotomy. There was some fluid and blood in the joint but no purulence was noted. We then went ahead and irrigated out the ankle joint with 3 L of saline containing antibiotics. I then inserted a medium Hemovac drain into the anterior aspect of the ankle joint. When doing the irrigation of the ankle joint it was distracted and placed through a gentle range of motion. At the conclusion of the procedure after letting the tourniquet down the medial wound was closed. The drain was brought out distal to the medial incision. The skin was able to be completely closed in a tension-free fashion with 3-0 nylon simple interrupted sutures and near far far near sutures. On the lateral side there was a long lateral incision. Distally there was about a 2 to 5 mm of black and white skin noted on the posterior margin. The prior incision was opened distally and the plate could be visualized underneath this. The prior incision was opened and directly communicated down to the plate. On the anterior portion of the distal incision there was approximately 4 cm long and 1-1/2 to 2 cm wide. This was white-black tissue. This was thoroughly debrided. At the end of the procedure debridement debridement was performed to the extent that the remaining tissue was healthy and bleeding from his edges. The opening at the end of the procedure was 6 cm long and 2 to 2-1/2 cm wide. I do not encountered the superficial peroneal nerve. Blunt dissection was performed proximally. The plate was identified and a deep culture was obtained sent for routine analysis and labeled lateral. Once the plate was removed a second culture was taken deep. On the medial side a culture of the ankle joint was also taken and labeled right ankle joint. The proximal distal screws were removed. The fracture was identified. The fracture was stable to probing with a dental pick and was very well approximated distally and had a slight diastases proximally. It was stable. I then remove the interfragmentary screw and there was no change in stability. The syndesmosis was stressed and found to be stable. I then used 4-1/2 L of saline to irrigate the lateral wound. Using combination of sharp and blunt debridement with curette and rondure as well as knife and scissors all devascularized tissue was removed. I used a drill bit 2.5 mm in diameter to open up all of the screw holes. None of the screws were loose and the plate was not loose. I then took stimulant beads. 5 cc made with 1 g of vancomycin and 160 mg of gentamicin. Beads were packed into all of the proximal holes. I did not put anything in the distal cluster where the wound was opened. I then put some remaining beads superficial to the fibula laterally. I then in a tension-free fashion close the proximal two thirds of the wound using 2-0 and 3-0 nylon in a near far far near and simple interrupted suture fashion. The distal extent was left open as previously described. Clothing Examiner fluoroscopic images AP lateral and mortise confirmed removal of all hardware intact syndesmosis and mortise and no displacement of the fracture. Meticulous hemostasis was obtained. Medially Xeroform 4 x 4's ABD. Laterally a saline moistened sponge was packed into the open wound followed by gauze pads ABD cast padding and a posterior splint with U stirrup ankle neutral position. Patient is then awakened from anesthesia without difficulty and taken to the recovery room in stable condition. There were no complications. Specimens were as mentioned above. Counts were correct and blood loss is estimated to be 20 cc. At the conclusion the operation spoke with patient's informed her of my findings detail postop instructions were given. We will consult plastic surgery, wound care and infectious diseases. Consider acute care rehab versus [facility] facility. Patient is to be nonweightbearing on the right leg. Plan for application of wound VAC likely irrigating type tomorrow. I attest to the content of the Intraoperative Record and any orders documented therein. Any exceptions are noted below.
--- NOTE | 2019-06-23 14:50 | Operative Report ---
Post Operative Report Pre & Post Diagnosis Operation Date: 06/23/19 12:30 Pre-Op Diagnosis: POST-OPERATIVE RIGHT ANKLE WOUND INFECTION Post-Op Diagnosis: POST-OPERATIVE RIGHT ANKLE WOUND INFECTION I identified the patient and participated in the time-out.: Yes Procedure Operation Date: 06/23/19 12:30 Actual Procedures p Incision and Drainage Right ankle, removal of hardware, arthrotomy(Right) - Owen Arboleda MD Surgeon Owen Arboleda M.D. Wool Fleece Grader Meaghan Cook PA-C Estimated Blood Loss 20 Findings Consistent with Post-Op Diagnosis Specimens wound cultures Drains Hemovac x 1 medial incision Anesthesia Type MAC Regional Complications none Description of Procedure Patient was taken to the operating room, placed under IV sedation with peripheral nerve block. Time out performed, prepped and draped in routine kwadwo rile fashion. He was given his scheduled Zosyn and IV Ancef 2gm for preoperatively surgical prophylaxis. I was present during the entire case and assisted with positioning, exposure, irrigation, debridement, hardware removal and closure and dressings. Please see Dr. Arboleda's operative report for further detail. Patient was awakened and taken to the recovery room in stable condition. I attest to the content of the Intraoperative Record and any orders documented therein. Any exceptions are noted below.
[2019-06-23] MEDS ORDERED: NALOXONE HCL 0.4 MG/1 ML VIAL/CARP IV PRN (16:02)
[2019-06-23] MEDS ORDERED: HYDROmorphone INJ 0.5 MG/0.5 ML SYR IV PRN (16:02)
[2019-06-23] MEDS ORDERED: METOCLOPRAMIDE HCL INJ 5 MG/ML 2 ML VIAL IV PRN (16:02)
[2019-06-23] MEDS ORDERED: MAGNESIUM HYDROXIDE SUSP 30 ML UDC PO PRN (16:02)
[2019-06-23] MEDS ORDERED: bisacodyL 10 MG SUPP PR PRN (16:02)
--- NOTE | 2019-06-23 16:07 | Anesthesiology Progress Note ---
Date of Service June 23, 2019 Anesthesia Post Procedure Vital Signs Vital Signs: Temp Pulse Pulse Pulse Resp BP BP 06/23/19 15:45 64 14 100/73 06/23/19 15:35 36.3 C L 60 18 118/77 06/23/19 15:25 66 16 116/71 06/23/19 15:15 64 18 106/80 06/23/19 15:05 65 16 114/70 06/23/19 14:55 64 16 109/58 L 06/23/19 14:45 68 18 103/75 06/23/19 14:37 36.4 C L 72 20 115/69 06/23/19 12:08 76 16 06/23/19 11:08 36.5 C 78 18 139/80 06/23/19 08:00 80 06/23/19 07:12 71 18 06/23/19 07:00 36.4 C L 76 24 132/84 06/23/19 06:47 36.3 C L 73 16 125/75 06/23/19 03:39 36.4 C L 73 20 125/77 06/23/19 01:47 36.5 C 06/23/19 01:28 76 76 16 06/22/19 23:43 107 H 06/22/19 23:12 96 H 20 06/22/19 22:03 36.4 C L 106 H 20 130/86 06/22/19 19:27 36.8 C 110 H 20 112/69 06/22/19 19:05 113 H 20 06/22/19 17:27 126 H Pulse Ox 06/23/19 15:45 94 06/23/19 15:35 93 06/23/19 15:25 95 06/23/19 15:15 95 06/23/19 15:05 95 06/23/19 14:55 94 06/23/19 14:45 97 06/23/19 14:37 97 06/23/19 12:08 97 06/23/19 11:08 92 06/23/19 08:00 06/23/19 07:12 95 06/23/19 07:00 96 06/23/19 06:47 92 06/23/19 03:39 95 06/23/19 01:47 06/23/19 01:28 92 06/22/19 23:43 06/22/19 23:12 91 06/22/19 22:03 94 06/22/19 19:27 92 06/22/19 19:05 92 06/22/19 17:27 Transfer of Care Handoff Completed per policy Notes Mental Status: alert / awake / arousable and participated in evaluation Patient Amnestic to Procedure: Yes Nausea / Vomiting: adequately controlled Pain: adequately controlled Airway Patency, RR, SpO2: stable & adequate BP & HR: stable & adequate Hydration State: stable & adequate Anesthetic Complications: no major complications apparent and Pt Satisfied with anesthetic care
[2019-06-23] MEDS: FLUTICASONE/VILANTEROL 200/25MCG 14 PUFFS/INHALER INH SCH (16:16)
[2019-06-23] MEDS ORDERED: Nursing to Pharmacy Communication ONE (18:05)
[2019-06-23] MEDS: DOCUSATE SODIUM 100 MG CAP PO SCH (19:52)
[2019-06-23] MEDS: SENNA 8.6 MG TAB PO SCH (19:53)
[2019-06-23] MEDS: TAMSULOSIN HCL 0.4 MG CAP PO SCH (19:54)
[2019-06-23] MEDS: MONTELUKAST SODIUM 10 MG TABLET PO SCH (19:54)
[2019-06-23] MEDS: TRAZODONE HCL 100 MG TAB PO SCH (19:54)
[2019-06-23] MEDS: PRAZOSIN HCL 1 MG CAP PO SCH (19:56)
[2019-06-23] MEDS: ATORVASTATIN 10 MG TAB PO SCH (21:40)
[2019-06-24] MEDS: LEVALBUTEROL 1.25MG/0.5ML NEB INH SCH ×4 (00:51→19:08)
[2019-06-24] MEDS: IPRATROPIUM BROMIDE NEB SOLN 0.02% 2.5 ML VIAL INH SCH ×4 (00:51→19:08)
[2019-06-24] MEDS: PIPERACILLIN/TAZOBACTAM 4.5 GM in DEXTROSE 5% 100 ML IV SCH ×3 (03:36→17:17)
[2019-06-24] MEDS: methylPREDNISolone 40 MG in SYRINGE 0 ML IV SCH ×3 (03:36→20:05)
[2019-06-24 05:58] LABS: Estimated Average Glucose 120 mg/dl; Hemoglobin A1C 5.8 % (4.5-5.6)
[2019-06-24] MEDS ORDERED: SODIUM CHLORIDE 0.9% 1000ML 1,000 ML IV ONE (06:25)
[2019-06-24 06:28] LABS: Hematocrit (blood only) 37.5 % (42-52); Hemoglobin 11.4 g/dL (14.0-18.0); Mean Corpuscular Hgb Conc 30.4 g/dL (32-36); Mean Corpuscular Volume 85.6 fL (80-100); Mean Platelet Volume 10.4 fL (7.4-10.4); Nucleated RBC # (auto) 0.02 K/uL (0-0); Nucleated RBC % (auto) 0.1 %; Platelet Count 382 K/uL (130-400); RDW Coefficient of Variation 16.1 % (11.5-14.5); RDW Standard Deviation 50.6 fL (36.4-46.3); Red Blood Count 4.38 M/uL (4.7-6.1); White Blood Count 13.47 K/uL (4.8-10.8)
[2019-06-24 06:56] LABS: BUN Creatinine Ratio 30.1 (10-20); Calcium 8.9 mg/dl (8.5-10.1); Creatinine Clr Calc Pharmacy 58.7 ml/min; Est GFR (African American) 67.6; Est GFR (Non-African American) 58.3; Potassium 5.6 mmol/L (3.5-5.1)
[2019-06-24] MEDS: INSULIN ASPART 100 UNITS/ML 3 ML PEN SC SCH ×4 (07:51→21:43)
[2019-06-24] MEDS: INSULIN GLARGINE SOLOSTAR 100 UNITS/ML 3 ML PEN SQ SCH (07:52)
[2019-06-24] MEDS: SODIUM CHLORIDE 0.9% 1000ML 1,000 ML IV SCH (07:55)
[2019-06-24] MEDS: ENOXAPARIN INJ 40 MG/0.4 ML SYR SQ SCH (08:17)
[2019-06-24] MEDS: GABAPENTIN 300 MG CAP PO SCH ×3 (08:17→20:14)
[2019-06-24] MEDS: PANTOprazole 40 MG TAB PO SCH (08:17)
[2019-06-24] MEDS: MULTIVITAMIN TAB PO SCH (08:18)
[2019-06-24] MEDS: BuPROPion XL 150 MG TABCR PO SCH (08:18)
[2019-06-24] MEDS: guaiFENesin 600 MG TABCR PO SCH ×3 (08:18→20:13)
[2019-06-24] MEDS: METOPROLOL TARTRATE 25 MG TAB PO SCH ×2 (08:18→20:11)
[2019-06-24] MEDS: SERTRALINE HCL 100 MG TABLET PO SCH ×2 (08:18→20:15)
[2019-06-24] MEDS: DOCUSATE SODIUM 100 MG CAP PO SCH ×2 (08:18→20:05)
--- NOTE | 2019-06-24 09:59 | Surgery Consultation ---
Date of Consultation June 24, 2019 Assessment & Plan (1) Open wound of ankle with complication: This wound appears to be amenable to placement of an irrigating wound VAC. Discussed with the patient we will begin with an irrigating VAC, allow some granulation tissue to form, consider placement of split-thickness skin graft or epidermal autograft as the wound heals. Given the very small amount of exposed bone and lack of hardware, I feel conservative management is reasonable. If exposed bone persists, could consider placement of Integra. Continue intravenous antibiotics as ordered by medical service. I will reassess the wound at the VAC change on . Post discharge, patient may follow-up with me at the wound care center. History of Present Illness Reason for Consultation: Open wound, right ankle Attending Physician: Owen Arboleda MD History of Present Illness I am asked to see this 74-year-old male postoperatively for assistance in wound management. He sustained a fall May 26, 2019 while drinking, resulting in a closed trimalleolar fracture dislocation. He underwent ORIF of this fracture on 05/[address] Real, [facility] About 3 weeks postoperatively, he was noted to have drainage and wound separation at the incision site, started on Bactrim. He presented to the emergency department with fevers and some mental status changes on June 21, underwent incision and drainage, hardware removal with Dr. Arboleda on June 22. Antibiotic beads were placed. He does have a history of MRSA. He is currently being treated with IV daptomycin and IV Zosyn. Exhibited signs of sepsis at time of admission. He is seen at bedside today with JOELLE Landa. Past medical history significant for COPD with recent exacerbation, hypertension, BPH, obstructive sleep apnea, afib/flutter. Allergies Allergy/AdvReac Type Severity Reaction Status Date / Time ibuprofen Allergy Unknown HIVES Verified 06/22/19 10:45 Home Medications Home Medications Medication Instructions Recorded Confirmed Type Spiriva with HandiHaler 1 cap INHALATION DAILY PRN 11/30/17 06/22/19 History bupropion HCl 150 mg PO QAM 11/30/17 06/22/19 History clonazepam 0.5 mg PO DAILY 11/30/17 06/22/19 History gabapentin 600 mg PO TID 11/30/17 06/22/19 History lisinopril 10 mg PO DAILY 11/30/17 06/22/19 History pantoprazole 40 mg PO DAILY 11/30/17 06/22/19 History sertraline 100 mg PO BID 11/30/17 06/22/19 History tamsulosin [Flomax] 0.4 mg PO QPM 10/05/18 06/22/19 History atorvastatin 10 mg PO HS 05/26/19 06/22/19 History cetirizine 10 mg PO HS PRN 05/26/19 06/22/19 History montelukast 10 mg PO DAILY 05/26/19 06/22/19 History prazosin 5 mg PO HS 05/26/19 06/22/19 History aspirin 81 mg PO BID 42 Days #84 tab 05/30/19 06/22/19 Rx ipratropium-albuterol 3 ml INH Q6H PRN #90 ml 05/30/19 06/22/19 Rx methocarbamol 1,000 mg PO QID PRN #0 tab 05/30/19 06/22/19 Rx hydrocodone 5 mg-acetaminophen 325 1 tab PO Q6H PRN #20 tab 06/12/19 06/22/19 Rx mg tablet meloxicam 15 mg tablet 15 mg PO DAILY #30 tab 06/18/19 06/22/19 Rx sulfamethoxazole 800 1 tab PO BID 7 Days #14 tab 06/18/19 06/22/19 Rx mg-trimethoprim 160 mg tablet doxycycline hyclate 100 mg tablet 100 mg PO BID PRN #14 tab 06/21/19 06/22/19 Rx tramadol 50 mg tablet 50 mg PO Q6H PRN #30 tab 06/21/19 06/22/19 Rx budesonide-formoterol 2 puff INHALATION BID 06/22/19 06/22/19 History trazodone 300 mg PO HS 06/22/19 06/22/19 History Patient History Medical History Asthma (Chronic) BPH (benign prostatic hyperplasia) (Chronic) Chronic bronchitis Closed fracture dislocation of ankle (Acute) DDD (degenerative disc disease) (Acute) Diverticulitis HTN (hypertension) (Chronic) Intractable back pain (Acute) MRSA (methicillin resistant Staphylococcus aureus) (Chronic) negative nasal swab on 06/24/15 and 10/05/18 Obesity VIK on CPAP (Chronic) Noncompliant Prolonged QT interval [id number] EKG 05/25/19 PTSD (post-traumatic stress disorder) (Chronic) do not wake patient by touching, wake patient by saying name Surgical History History of back surgery (Chronic) back surgery x3 at [facility] History of partial colectomy S/P hernia repair Status post ORIF of fracture of ankle 05/26/[address] Real SAB with sedation. Family History Other Family history non-contributory Social History Preferred Language: Brazilian Communication Ability: Effective Seeing Eye Dog Trainer Required: No Beliefs That Will Affect Care: None marital status: Current Living Situation: Spouse Other Information That Helps Us Care for You: No Feels Safe at Home: Yes Safety Concerns: Feels Safe At This Time Smoking Status: Former smoker Tobacco Type: cigarettes ; Do You Dip or Chew Tobacco: Yes ; Second Hand Exposure: No ; Hx Alcohol Use: Yes Alcohol type: beer Hx Substance Use: No Review of Systems Constitutional: no fever Musculoskeletal: as per Subjective / HPI Integumentary: as per Subjective / HPI Physical Exam Constitutional: WD/WN, vitals as above Eyes: PERRL, conjunctivae normal, anicteric sclerae Respiratory: normal respiratory effort; no respiratory distress Musculoskeletal: Knee: + surgical drain present (Right ankle) Skin: Medial right ankle with closed incision measuring 6 cm, no erythema, some scant serosanguineous drainage. Right lateral ankle with 6.5 x 3 x 1.5 cm open wound, with proximal closed incision, total length 9 cm. There is exposed bone at the wound base, appears to have viable periosteum. Wound appears clean, about 50% slough noted, no purulent drainage. No peripheral erythema. Psychiatric: A+Ox3, euthymic affect Results & Data Vital Signs (Past 12 Hours) Vital Signs Temp Pulse Pulse Pulse Resp BP BP 06/24/19 08:00 73 06/24/19 07:18 87 18 06/24/19 07:07 97.7 F 74 22 149/87 H 06/24/19 04:25 97.5 F L 68 18 126/89 06/24/19 03:05 56 L 16 06/24/19 00:51 17 06/24/19 00:50 68 17 06/24/19 00:00 76 06/23/19 23:14 97.9 F 68 17 122/73 Pulse Ox 06/24/19 08:00 06/24/19 07:18 95 06/24/19 07:07 94 06/24/19 04:25 95 06/24/19 03:05 93 06/24/19 00:51 92 06/24/19 00:50 92 06/24/19 00:00 06/23/19 23:14 92 Laboratory Results Laboratory Tests 06/23/19 06/24/19 05:57 05:25 WBC 13.47 H Hgb 11.4 L Hemoglobin A1c 5.8 H Wound culture shows staph aureus, sensitivities pending Diagnostic Findings Right ankle x-ray, preop 1. Status post internal fixation of a trimalleolar fracture. Hardware intact. No radiographic evidence for osteomyelitis. 2. Soft tissue swelling with soft tissue gas. This gas could be due to an open wound or recent procedure. However, a gas-forming infectious process could appear similar. PG Care Time/CCT Total # of Minutes Spent Total Time Spent with Patient: Total time spent is greater than 50% in coordination of care (as documented) at patient's floor/unit and/or counseling patient: Coding Level of Care Code 40573 Inpt Consult Level 3 Diagnoses Open wound of ankle with complication S91.001A Encounter type: initial encounter Laterality: right (1) Open wound of ankle with complication Encounter type: initial encounter Laterality: right Qualified Code(s): S91.001A - Unspecified open wound, right ankle, initial encounter
[2019-06-24] MEDS: DAPTOmycin 450 MG in SYRINGE 0 ML IV SCH (10:06)
--- NOTE | 2019-06-24 10:41 | Electrocardiogram Report ---
Test Reason : Blood Pressure : / mmHG Vent. Rate : 079 BPM Atrial Rate : 079 BPM P-R Int : 158 ms QRS Dur : 080 ms QT Int : 374 ms P-R-T Axes : 042 039 043 degrees QTc Int : 428 ms Normal sinus rhythm Normal ECG When compared with ECG of 22-JUN-2019 23:58, Sinus rhythm has replaced Atrial fibrillation ST no longer elevated in Inferior leads Confirmed by Fernie Quiroga ([id number]) on 06/24/2019 10:41:21 AM Referred By: REFERRED SELF Confirmed By:Fernie Quiroga
--- NOTE | 2019-06-24 11:12 | Cardiology Progress Note ---
Date of Service June 24, 2019 Assessment & Plan (1) Paroxysmal atrial fibrillation: (2) Postoperative wound infection: (3) Asthma: No recurrent atrial fibrillation overnight. Continue low-dose beta- mary therapy and telemetry monitoring. Episode of atrial fibrillation was transient and associated with current infectious process/febrile illness. Resting 2D transthoracic echocardiogram demonstrates preserved LV systolic function. Repeat ECG today demonstrates normal sinus rhythm. Recommend further evaluation/risk medication regarding his chronic dyspnea on exertion with pharmacologic stress testing in the outpatient setting when infectious/orthopedic issues have resolved. Subjective Patient seen and examined the bedside. No recurrent atrial fibrillation overnight. Wheezing and chronic cough unchanged. Reports short-lived chest discomfort associated with cough. Tolerating low-dose beta-mary therapy. Tolerating diet medications. Offers no other concerns/complaints this time. Review of Systems Review of Systems: All systems reviewed & are unremarkable except as noted in HPI & below Physical Exam Constitutional: well developed and + obese Respiratory: Auscultation: + wheezes (Bilateral expiratory); no crackles, no rales and no rhonchi Cardiovascular: Rate/Rhythm: regular rate and regular rhythm Heart Sounds: normal S1 and normal S2; no murmur and no cardiac rub Vessels: no JVD Extremities: no edema Gastrointestinal (Abdomen): Inspection/Auscultation: normal bowel sounds; abdomen not distended Percussion/Palpation: abdomen soft; abdomen nontender, no guarding and abdomen not rigid Musculoskeletal: Extremities: strength 5/5 throughout Skin: + wound (Right lower extremity. Dressing clean, dry, intact) Neurologic: moves all extremities; no focal motor deficits Speech / Cognition: normal speech Psychiatric: A+Ox3, euthymic affect Results & Data Vital Signs (Past 12 Hours) Vital Signs Temp Pulse Pulse Pulse Resp BP BP 06/24/19 08:00 73 06/24/19 07:18 87 18 06/24/19 07:07 36.5 C 74 22 149/87 H 06/24/19 04:25 36.4 C L 68 18 126/89 06/24/19 03:05 56 L 16 06/24/19 00:51 17 06/24/19 00:50 68 17 06/24/19 00:00 76 06/23/19 23:14 36.6 C 68 17 122/73 Pulse Ox 06/24/19 08:00 06/24/19 07:18 95 06/24/19 07:07 94 06/24/19 04:25 95 06/24/19 03:05 93 06/24/19 00:51 92 06/24/19 00:50 92 06/24/19 00:00 06/23/19 23:14 92 (1) Asthma Asthma complication type: unspecified Asthma persistence: unspecified Asthma severity: unspecified severity Qualified Code(s): J45.909 - Unspecified asthma, uncomplicated
--- NOTE | 2019-06-24 12:12 | Infectious Disease Consult ---
Date of Consultation June 24, 2019 Assessment & Plan (1) Postoperative wound infection: continue current abx, will likely need range of 6 weeks total. will await final ID/sensitivity for further recs on abx.for picc today. will follow. History of Present Illness Attending Physician: Owen Arboleda MD pt admitted with increased right ankle pain, swelling, redness f/c at home. 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 He was placed on dapto and zosyn, also on IV steroids. He is t olerating abx well. no f/c since admission but does admit to some at home. he denies abd pain, no n/v/d. no cp, sob, cough. pain in ankle much improved. went to OR 06/22 - all cultures growing S. aureus, has h/o MRSA abd infection. His blood cultures from admission are negative to date. wbc 13, ESR >90, creat 1.2 CXR negative. s/p hardware removal. undergoing vac change on my exam. wound significantly improved from previous photos, reviewed with wound care nurse. no f/c currently. all remaining ros reviewed and are negative. for picc line later today. Allergies Allergy/AdvReac Type Severity Reaction Status Date / Time ibuprofen Allergy Unknown HIVES Verified 06/22/19 10:45 Home Medications Home Medications Medication Instructions Recorded Confirmed Type Spiriva with HandiHaler 1 cap INHALATION DAILY PRN 11/30/17 06/22/19 History bupropion HCl 150 mg PO QAM 11/30/17 06/22/19 History clonazepam 0.5 mg PO DAILY 11/30/17 06/22/19 History gabapentin 600 mg PO TID 11/30/17 06/22/19 History lisinopril 10 mg PO DAILY 11/30/17 06/22/19 History pantoprazole 40 mg PO DAILY 11/30/17 06/22/19 History sertraline 100 mg PO BID 11/30/17 06/22/19 History tamsulosin [Flomax] 0.4 mg PO QPM 10/05/18 06/22/19 History atorvastatin 10 mg PO HS 05/26/19 06/22/19 History cetirizine 10 mg PO HS PRN 05/26/19 06/22/19 History montelukast 10 mg PO DAILY 05/26/19 06/22/19 History prazosin 5 mg PO HS 05/26/19 06/22/19 History aspirin 81 mg PO BID 42 Days #84 tab 05/30/19 06/22/19 Rx ipratropium-albuterol 3 ml INH Q6H PRN #90 ml 05/30/19 06/22/19 Rx methocarbamol 1,000 mg PO QID PRN #0 tab 05/30/19 06/22/19 Rx hydrocodone 5 mg-acetaminophen 325 1 tab PO Q6H PRN #20 tab 06/12/19 06/22/19 Rx mg tablet meloxicam 15 mg tablet 15 mg PO DAILY #30 tab 06/18/19 06/22/19 Rx sulfamethoxazole 800 1 tab PO BID 7 Days #14 tab 06/18/19 06/22/19 Rx mg-trimethoprim 160 mg tablet doxycycline hyclate 100 mg tablet 100 mg PO BID PRN #14 tab 06/21/19 06/22/19 Rx tramadol 50 mg tablet 50 mg PO Q6H PRN #30 tab 06/21/19 06/22/19 Rx budesonide-formoterol 2 puff INHALATION BID 06/22/19 06/22/19 History trazodone 300 mg PO HS 06/22/19 06/22/19 History Patient History Medical History Asthma (Chronic) BPH (benign prostatic hyperplasia) (Chronic) Chronic bronchitis Closed fracture dislocation of ankle (Acute) DDD (degenerative disc disease) (Acute) Diverticulitis HTN (hypertension) (Chronic) Intractable back pain (Acute) MRSA (methicillin resistant Staphylococcus aureus) (Chronic) negative nasal swab on 06/24/15 and 10/05/18 Obesity VIK on CPAP (Chronic) Noncompliant Prolonged QT interval SAy=178 EKG 05/25/19 PTSD (post-traumatic stress disorder) (Chronic) do not wake patient by touching, wake patient by saying name Surgical History History of back surgery (Chronic) back surgery x3 at [facility] History of partial colectomy S/P hernia repair Status post ORIF of fracture of ankle 05/26/[address] Real SAB with sedation. 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 Beliefs That Will Affect Care: None marital status: Current Living Situation: Spouse Other Information That Helps Us Care for You: No Feels Safe at Home: Yes Safety Concerns: Feels Safe At This Time Smoking Status: Former smoker Tobacco Type: cigarettes ; Do You Dip or Chew Tobacco: Yes ; Second Hand Exposure: No ; Hx Alcohol Use: Yes Alcohol type: beer Hx Substance Use: No Review of Systems Review of Systems: All systems reviewed & are unremarkable except as noted in HPI & below Physical Exam Constitutional: WD/WN, vitals as above Eyes: PERRL, conjunctivae normal, anicteric sclerae ENMT: external ear and nose normal, oropharynx normal Neck: normal visual inspection Respiratory: normal respiratory effort, lungs clear to auscultation Cardiovascular: RRR, no murmur, no edema Gastrointestinal (Abdomen): normal bowel sounds, soft, nontender, no hepatosplenomegaly Musculoskeletal: no cyanosis or clubbing, extremities motor strength 5/5 Skin: no rashes, warm and dry + wound (sutures intact, no drainage, min bleeding, vac change) Psychiatric: A+Ox3, euthymic affect Results & Data ([facility]) Vital Signs (Past 12 Hours) Vital Signs Temp Pulse Pulse Pulse Resp BP BP 06/24/19 08:00 73 06/24/19 07:18 87 18 06/24/19 07:07 36.5 C 74 22 149/87 H 06/24/19 04:25 36.4 C L 68 18 126/89 06/24/19 03:05 56 L 16 06/24/19 00:51 17 06/24/19 00:50 68 17 Pulse Ox 06/24/19 08:00 06/24/19 07:18 95 06/24/19 07:07 94 06/24/19 04:25 95 06/24/19 03:05 93 06/24/19 00:51 92 06/24/19 00:50 92 Laboratory Results Microbiology 06/23/19 14:30 Ankle,Right Gram Stain - Final 06/23/19 14:30 Ankle,Right Aerobic and Anaerobic Culture - Preliminary Staphylococcus aureus 06/23/19 14:30 Ankle,Right Gram Stain - Final 06/23/19 14:30 Ankle,Right Aerobic and Anaerobic Culture - Preliminary Staphylococcus aureus 06/23/19 14:30 Ankle,Right Gram Stain - Final 06/23/19 14:30 Ankle,Right Aerobic and Anaerobic Culture - Preliminary Staphylococcus aureus 06/23/19 14:30 Ankle,Right Gram Stain - Final 06/23/19 14:30 Ankle,Right Aerobic and Anaerobic Culture - Preliminary Staphylococcus aureus 06/22/19 11:24 Blood Aerobic Blood Culture - Preliminary No growth in Aerobic bottle after 24 hours. 06/22/19 11:24 Blood Anaerobic Blood Culture - Final 06/22/19 11:24 Blood Aerobic Blood Culture - Preliminary No growth in Aerobic bottle after 24 hours. 06/22/19 11:24 Blood Anaerobic Blood Culture - Preliminary No growth in Anaerobic bottle after 24 hours. PG Care Time/CCT Total # of Minutes Spent Total Time Spent with Patient: Total time spent is greater than 50% in coordination of care (as documented) at patient's floor/unit and/or counseling patient: Coding Level of Care Code 23509 Inpt Consult Level 4 Diagnoses Postoperative wound infection T81.49XA
[2019-06-24] MEDS ORDERED: ERGOCALCIFEROL 50,000 UNITS CAP PO ONE (12:33)
[2019-06-24 12:37] LABS: BUN Creatinine Ratio 27.9 (10-20); Creatinine Clr Calc Pharmacy 61.2 ml/min; Est GFR (Non-African American) 61.3; Potassium 5.3 mmol/L (3.5-5.1)
--- NOTE | 2019-06-24 12:48 | Progress Notes ---
DATE: 06/24/2019 The patient is resting comfortably in bed. The wound has been evaluated by plastic surgery and wound care team, and the plan is for an irrigating wound VAC. The patient reports that his foot is numb and he cannot move his toes. I think that this is the lingering effects of the nerve block. His Hemovac drain drainage is not recorded that I can see. The drain is pulled out slightly and is not maintaining suction. I went ahead and pulled out the Hemovac from the ankle joint. He is afebrile. His vital signs are stable. His toes are warm with good capillary refill. He has a slight bit of sensation towards the little toe and into the ball of the foot, but on the dorsum and plantar aspect of the foot and even up into the ankle area, he does not have any sensation. He cannot wiggle his toes or move his ankle and I would assume that this is due to the peripheral nerve block. We will continue to monitor. Dressings were left on the wounds. The splint is repositioned. He is able to lift the leg, bend the knee and has normal knee flexion and extension strength. Cultures have grown out staph. Sensitivities are pending. The cultures from the medial wound, ankle joint as well as both lateral cultures are all growing out staph. White count is 13, hemoglobin 11, hematocrit is 38, platelet count is 382. His PRP is noted. Potassium is slightly high. Creatinine normal. Vitamin D level is low and will be replaced. The patient has a soft tissue defect over the lateral ankle secondary to wound necrosis. He also has a deep postoperative infection involving the medial and lateral sides of the ankle as well as the ankle joint. He has been treated with irrigation and debridement. He is on intravenous antibiotics and until we get some further sensitivities, we will continue with the daptomycin and Zosyn. Appreciate the help of the wound care team as well as medicine. I discussed with the patient what happened with surgery. We discussed the findings on the medial side of the ankle. We talked about the management of the lateral wound and removal of the hardware. I made him aware that the fracture is partially healed, but does not have the strength to withstand twisting and weightbearing. If the fracture were to reoccur or displace that would significantly compromise and complicate the care. I recommend that he be nonweightbearing on this leg for the foreseeable future. PICC line consent completed for insertion of PICC line. If we have infectious diseases, we want to get their input as well. I would anticipate a number of weeks of intravenous antibiotics depending on sensitivities. He will need a wound VAC at home. We will need to determine what his disposition is whether he goes to rehab or back home. Nonweightbearing reinforced. Hopefully, his can bring in his boot and that might be more appropriate for him. Lovenox for DVT prophylaxis. Do not chew tobacco. The patient's pain is well controlled. We will monitor the resolution of the nerve block.
[2019-06-24] MEDS: VITAMIN A 25,000 UNIT CAP PO SCH (13:24)
[2019-06-24] MEDS: FLUTICASONE/VILANTEROL 200/25MCG 14 PUFFS/INHALER INH SCH (13:25)
--- NOTE | 2019-06-24 18:29 | Hospitalist Progress Note ---
Date of Service June 24, 2019 Assessment & Plan (1) Severe sepsis: (2) Postoperative wound infection: sepsis resolved remains afebrile, BP stable blood cultures: negative so far ankle drainage culture: Staph continue Dapto + Zosyn ID consulted, may need 6 weeks IV antibiotic (3) Acute on chronic respiratory failure with hypoxia: (4) COPD exacerbation: CXR: no pneumonia wheezing significantly improved still on 2 L via NC continue Solumedrol, Nebs add Mucomysyt, Mucinex sputum culture ordered (5) Atrial fibrillation and flutter: resolved no history in the past likely paroxysmal, related to Sepsis, COPD exacerbation converted to SR spontaneously echo preserved EF on Metoprolol tartrate 12.5mg po BID (6) TARUN (acute kidney injury): -Creatinine 1.6 -Likely multifactorial secondary to recent prescription of Bactrim and meloxicam, in addition to sepsis resolved (7) HTN (hypertension): - holding Lisinopril in light of hyperK (8) BPH (benign prostatic hyperplasia): -Continue tamsulosin and prazosin (9) VIK (obstructive sleep apnea): -Noncompliant with CPAP -Recommend outpatient follow-up with sleep or pulmonary medicine (10) Hyperkalemia: unclear etiology from right ankle surgery? mild no EKG changes monitor closely Thank you for this consultation. We will follow the patient with you during their hospital stay. You can reach a member of the [facility] Hospitalist Team 19/09 via pager @ [phone]. Admission and Anticipated Discharge Date Admission Date: June 22, 2019 Subjective ff up for sepsis, Right ankle wound infection seen resting in bed, comfortable on 2 L nasal cannula in good spirits states he has dry cough, cannot seem to expectorate mucus no shortness of breath, chest pain, nausea no leg pain no other symptoms Review of Systems Review of Systems: All systems reviewed & are unremarkable except as noted in HPI & below Physical Exam Physical Exam: General- oriented x 3, not in distress, speaks in sentences with no effort or accessory muscle use Eyes- anicteric Neck- no JVD Lungs- very faint wheeze on the right clear on the left no crackles Heart- normal rate, regular rhythm; no murmurs Abdomen- normal bowel sounds, nondistended, soft, nontender Extremities- right leg: heavy dressing in place left LE: essentially normal Neuro- alert, oriented x 3; no gross focal neurologic deficits Skin- warm & dry Results & Data Results & Data ([facility]) Vital Signs (Past 12 Hours) Vital Signs Temp Pulse Pulse Pulse Resp BP Pulse Ox 06/24/19 16:00 76 06/24/19 15:03 36.4 C L 84 22 137/74 91 06/24/19 13:30 134/78 06/24/19 13:07 86 18 94 06/24/19 08:00 73 06/24/19 07:18 87 18 95 06/24/19 07:07 36.5 C 74 22 149/87 H 94 Laboratory Results Laboratory Results - last 24 hr 06/23/19 06/23/19 06/24/19 05:57 20:22 05:25 WBC 13.47 H RBC 4.38 L Hgb 11.4 L Hct 37.5 L MCV 85.6 MCH 26.0 MCHC 30.4 L RDW Std Deviation 50.6 H RDW Coeff of Hector 16.1 H Plt Count 382 MPV 10.4 Absolute Nucleated RBC 0.02 H Nucleated RBC % (auto) 0.1 Sodium Potassium Chloride Carbon Dioxide Anion Gap BUN Creatinine Est Cr Clr Drug Dosing Est GFR ( Amer) Est GFR (Non-Af Amer) BUN/Creatinine Ratio Glucose POC Glucose 158 H Estimat Average Glucose 120 Hemoglobin A1c 5.8 H Calcium 25-OH Vitamin D Total 06/24/19 06/24/19 06/24/19 05:25 05:25 07:37 WBC RBC Hgb Hct MCV MCH MCHC RDW Std Deviation RDW Coeff of Hector Plt Count MPV Absolute Nucleated RBC Nucleated RBC % (auto) Sodium 140 Potassium 5.6 H Chloride 110 H Carbon Dioxide 24 Anion Gap 6.0 BUN 37 H Creatinine 1.23 Est Cr Clr Drug Dosing 58.7 Est GFR ( Amer) 67.6 Est GFR (Non-Af Amer) 58.3 BUN/Creatinine Ratio 30.1 H Glucose 143 H POC Glucose 152 H Estimat Average Glucose Hemoglobin A1c Calcium 8.9 25-OH Vitamin D Total 21.1 L 06/24/19 06/24/19 06/24/19 11:24 12:04 16:13 WBC RBC Hgb Hct MCV MCH MCHC RDW Std Deviation RDW Coeff of Hector Plt Count MPV Absolute Nucleated RBC Nucleated RBC % (auto) Sodium 142 Potassium 5.3 H Chloride 113 H Carbon Dioxide 22 Anion Gap 7.0 BUN 33 H Creatinine 1.18 Est Cr Clr Drug Dosing 61.2 Est GFR ( Amer) 71.0 Est GFR (Non-Af Amer) 61.3 BUN/Creatinine Ratio 27.9 H Glucose 134 H POC Glucose 122 H 130 H Estimat Average Glucose Hemoglobin A1c Calcium 9.0 25-OH Vitamin D Total
[2019-06-24] MEDS: ACETYLCYSTEINE 10% INHAL SOLN 4 ML **DISPENSED BY RESP. INH SCH (19:08)
[2019-06-24] MEDS: TRAZODONE HCL 100 MG TAB PO SCH (20:06)
[2019-06-24] MEDS: TAMSULOSIN HCL 0.4 MG CAP PO SCH (20:11)
[2019-06-24] MEDS: ATORVASTATIN 10 MG TAB PO SCH (20:11)
[2019-06-24] MEDS: PRAZOSIN HCL 1 MG CAP PO SCH (20:16)
[2019-06-24] MEDS: MONTELUKAST SODIUM 10 MG TABLET PO SCH (20:16)
[2019-06-24] MEDS: SENNA 8.6 MG TAB PO SCH (20:16)
[2019-06-24] MEDS ORDERED: HEPARIN 100 UNIT/ML 5ML FLUSH FLUSH PRN (22:58)
[2019-06-25] MEDS: LEVALBUTEROL 1.25MG/0.5ML NEB INH SCH ×4 (00:34→19:28)
[2019-06-25] MEDS: IPRATROPIUM BROMIDE NEB SOLN 0.02% 2.5 ML VIAL INH SCH ×4 (00:35→19:28)
[2019-06-25] MEDS: PIPERACILLIN/TAZOBACTAM 4.5 GM in DEXTROSE 5% 100 ML IV SCH (02:25)
[2019-06-25] MEDS: methylPREDNISolone 40 MG in SYRINGE 0 ML IV SCH ×3 (04:21→20:39)
[2019-06-25] MEDS: OXYCODONE/ACETAMINOPHEN 5mg/325mg TAB PO PRN ×2 (04:36→10:23)
[2019-06-25] MEDS: ACETYLCYSTEINE 10% INHAL SOLN 4 ML **DISPENSED BY RESP. INH SCH ×2 (06:52→19:28)
[2019-06-25] MEDS: SODIUM CHLORIDE 0.9% 1000ML 1,000 ML IV SCH ×2 (07:59→08:01)
[2019-06-25 08:19] LABS: Basophils # (auto) 0.01 K/uL (0-0.2); Basophils % (auto) 0.1 %; Hematocrit (blood only) 36.4 % (42-52); Hemoglobin 11.4 g/dL (14.0-18.0); Immature Granulocytes # (auto) 0.16 K/uL (0.00-0.02); Immature Granulocytes % (auto) 1.6 %; Lymphocytes # (auto) 0.42 K/uL (1.2-3.4); Lymphocytes % (auto) 4.2 %; Mean Corpuscular Hemoglobin 26.2 pg (25-34); Mean Corpuscular Hgb Conc 31.3 g/dL (32-36); Mean Corpuscular Volume 83.7 fL (80-100); Mean Platelet Volume 9.8 fL (7.4-10.4); Monocytes # (auto) 0.47 K/uL (0.11-0.59); Monocytes % (auto) 4.7 %; Neutrophils # (auto) 8.87 K/uL (1.4-6.5); Neutrophils % (auto) 89.4 %; Platelet Count 417 K/uL (130-400); RDW Coefficient of Variation 15.9 % (11.5-14.5); RDW Standard Deviation 48.4 fL (36.4-46.3); Red Blood Count 4.35 M/uL (4.7-6.1); White Blood Count 9.93 K/uL (4.8-10.8)
[2019-06-25] MEDS: METOPROLOL TARTRATE 25 MG TAB PO SCH ×2 (08:22→20:42)
[2019-06-25] MEDS: guaiFENesin 600 MG TABCR PO SCH ×4 (08:22→20:43)
[2019-06-25] MEDS: PANTOprazole 40 MG TAB PO SCH (08:23)
[2019-06-25] MEDS: MULTIVITAMIN TAB PO SCH (08:27)
[2019-06-25] MEDS: ENOXAPARIN INJ 40 MG/0.4 ML SYR SQ SCH (08:28)
[2019-06-25] MEDS: VITAMIN A 25,000 UNIT CAP PO SCH (08:28)
[2019-06-25] MEDS: GABAPENTIN 300 MG CAP PO SCH ×3 (08:29→20:44)
[2019-06-25] MEDS: SERTRALINE HCL 100 MG TABLET PO SCH ×2 (08:29→20:47)
[2019-06-25] MEDS: DOCUSATE SODIUM 100 MG CAP PO SCH ×2 (08:29→20:40)
[2019-06-25] MEDS: BuPROPion XL 150 MG TABCR PO SCH (08:30)
[2019-06-25] MEDS: CHOLECALCIFEROL 1,000 UNITS 25 MCG TAB PO SCH (08:30)
[2019-06-25 08:32] LABS: Calcium 9.2 mg/dl (8.5-10.1); Creatinine Clr Calc Pharmacy 67.4 ml/min; Est GFR (African American) 81.8; Est GFR (Non-African American) 70.6; Potassium 4.9 mmol/L (3.5-5.1)
[2019-06-25] MEDS: INSULIN GLARGINE SOLOSTAR 100 UNITS/ML 3 ML PEN SQ SCH (08:32)
[2019-06-25] MEDS: INSULIN ASPART 100 UNITS/ML 3 ML PEN SC SCH ×4 (08:37→20:44)
--- NOTE | 2019-06-25 08:52 | Orthopedic Progress Note ---
Date of Service June 25, 2019 Assessment & Plan (1) Postoperative wound infection: Continue OOB/NWB RLE Continue Wound vac - plan to have it changed tomorrow PICC in place right arm. Continued regular heart healthy diet. Strict NWB RLE at all times - allowed to be out of bed to chair as tolerated PT as ordered Case management for disposition - discussed inpatient rehab vs. home with home health and PT, possible discharge on Monday. Appreciate ID, hospitalist and wound care nurse assistance IV antibiotics as ordered or changed by ID. Cultures show methacillin sensitive staph. aureus. Ice and elevated as needed for pain/swelling. Continue immobilization with splint or boot right lower extremity. Allowed to wear boot if more comfortable. Recommended that we try to put that on tomorrow after his next vac change. Continue Lovenox 40 mg daily x 14 days for DVT prophylaxis. Will discuss findings with Dr. Arboleda All questions answered today. Present on Admission?: Yes Admission and Anticipated Discharge Date Admission Date: June 22, 2019 Subjective Patient is sitting in bed, eating breakfast. Doing much better, states pain improved, he's noticed that he can move his foot better. Wound vac in place. Wound vac functioning. Has been out of bed, states has been nonweightbearing. States that his was going to bring in his boot today. He think that he'd feel more protected in that. He might try that on after his brings it today. Tolerating a regular diet. Physical Exam Musculoskeletal: Exam of right ankle: Splint intact, toes less swollen, moves toes well, still some paresthesias in dorsum of right toes. Able to move knee and lift leg without trouble. No drainage, wound vac functioning. Nontender with palpation of toes right foot. Results & Data ([facility]) Vital Signs (Past 12 Hours) Vital Signs Temp Pulse Pulse Resp BP BP Pulse Ox 06/25/19 07:29 68 06/25/19 06:54 77 19 93 06/25/19 03:54 36.6 C 80 18 152/91 H 97 06/25/19 00:39 77 18 96 06/25/19 00:37 77 18 94 06/24/19 22:49 36.6 C 78 18 148/83 H 93 Laboratory Results 04/28/20 04/28/20 04/28/20 Range/Units 08:02 08:02 07:35 WBC 9.93 (4.8-10.8) K/uL RBC 4.35 L (4.7-6.1) M/uL Hgb 11.4 L (14.0-18.0) g/dL Hct 36.4 L (42-52) % MCV 83.7 (80-100) fL MCH 26.2 (25-34) pg MCHC 31.3 L (32-36) g/dL RDW Std Deviation 48.4 H (36.4-46.3) fL RDW Coeff of Hector 15.9 H (11.5-14.5) % Plt Count 417 H (130-400) K/uL MPV 9.8 (7.4-10.4) fL Immature Gran % (Auto) 1.6 % Neut % (Auto) 89.4 % Lymph % (Auto) 4.2 % Barnes % (Auto) 4.7 % Eos % (Auto) 0.0 % Baso % (Auto) 0.1 % Immature Gran # (Auto) 0.16 H (0.00-0.02) K/uL Neut # (Auto) 8.87 H (1.4-6.5) K/uL Lymph # (Auto) 0.42 L (1.2-3.4) K/uL Barnes # (Auto) 0.47 (0.11-0.59) K/uL Eos # (Auto) 0.00 (0-0.5) K/uL Baso # (Auto) 0.01 (0-0.2) K/uL Absolute Nucleated RBC 0.00 (0-0) K/uL Nucleated RBC % (auto) 0.0 % Sodium 140 (136-145) mmol/L Potassium 4.9 (3.5-5.1) mmol/L Chloride 112 H (98-107) mmol/L Carbon Dioxide 22 (21-32) mmol/L Anion Gap 7.0 (3-11) BUN 27 H (7-18) mg/dl Creatinine 1.05 (0.6-1.4) mg/dl Est Cr Clr Drug Dosing 67.4 ml/min Est GFR ( Amer) 81.8 Est GFR (Non-Af Amer) 70.6 BUN/Creatinine Ratio 26.0 H (10-20) Glucose 132 H (70-99) mg/dl POC Glucose 129 H (70-99) mg/dl Calcium 9.2 (8.5-10.1) mg/dl 06/24/19 06/24/19 06/24/19 Range/Units 20:44 19:11 16:13 WBC (4.8-10.8) K/uL RBC (4.7-6.1) M/uL Hgb (14.0-18.0) g/dL Hct (42-52) % MCV (80-100) fL MCH (25-34) pg MCHC (32-36) g/dL RDW Std Deviation (36.4-46.3) fL RDW Coeff of Hector (11.5-14.5) % Plt Count (130-400) K/uL MPV (7.4-10.4) fL Immature Gran % (Auto) % Neut % (Auto) % Lymph % (Auto) % Barnes % (Auto) % Eos % (Auto) % Baso % (Auto) % Immature Gran # (Auto) (0.00-0.02) K/uL Neut # (Auto) (1.4-6.5) K/uL Lymph # (Auto) (1.2-3.4) K/uL Barnes # (Auto) (0.11-0.59) K/uL Eos # (Auto) (0-0.5) K/uL Baso # (Auto) (0-0.2) K/uL Absolute Nucleated RBC (0-0) K/uL Nucleated RBC % (auto) % Sodium (136-145) mmol/L Potassium 5.1 (3.5-5.1) mmol/L Chloride (98-107) mmol/L Carbon Dioxide (21-32) mmol/L Anion Gap (3-11) BUN (7-18) mg/dl Creatinine (0.6-1.4) mg/dl Est Cr Clr Drug Dosing ml/min Est GFR ( Amer) Est GFR (Non-Af Amer) BUN/Creatinine Ratio (10-20) Glucose (70-99) mg/dl POC Glucose 150 H 130 H (70-99) mg/dl Calcium (8.5-10.1) mg/dl 06/24/19 06/24/19 Range/Units 12:04 11:24 WBC (4.8-10.8) K/uL RBC (4.7-6.1) M/uL Hgb (14.0-18.0) g/dL Hct (42-52) % MCV (80-100) fL MCH (25-34) pg MCHC (32-36) g/dL RDW Std Deviation (36.4-46.3) fL RDW Coeff of Hector (11.5-14.5) % Plt Count (130-400) K/uL MPV (7.4-10.4) fL Immature Gran % (Auto) % Neut % (Auto) % Lymph % (Auto) % Barnes % (Auto) % Eos % (Auto) % Baso % (Auto) % Immature Gran # (Auto) (0.00-0.02) K/uL Neut # (Auto) (1.4-6.5) K/uL Lymph # (Auto) (1.2-3.4) K/uL Barnes # (Auto) (0.11-0.59) K/uL Eos # (Auto) (0-0.5) K/uL Baso # (Auto) (0-0.2) K/uL Absolute Nucleated RBC (0-0) K/uL Nucleated RBC % (auto) % Sodium 142 (136-145) mmol/L Potassium 5.3 H (3.5-5.1) mmol/L Chloride 113 H (98-107) mmol/L Carbon Dioxide 22 (21-32) mmol/L Anion Gap 7.0 (3-11) BUN 33 H (7-18) mg/dl Creatinine 1.18 (0.6-1.4) mg/dl Est Cr Clr Drug Dosing 61.2 ml/min Est GFR ( Amer) 71.0 Est GFR (Non-Af Amer) 61.3 BUN/Creatinine Ratio 27.9 H (10-20) Glucose 134 H (70-99) mg/dl POC Glucose 122 H (70-99) mg/dl Calcium 9.0 (8.5-10.1) mg/dl Microbiology cultures results: MSSA
--- NOTE | 2019-06-25 09:08 | Infectious Disease Progress Nt ---
Date of Service June 25, 2019 Assessment & Plan (1) Postoperative wound infection: cultures growing MSSA, blood cultures negative, will change to rocephin 2g IV daily, would suggest min 6 weeks IV abx. will need weekly cbc, cmp, esr while on therapy. Pt may need alternate ID provider as I will be leaving prior to completion of his abx therapy. Admission and Anticipated Discharge Date Admission Date: June 22, 2019 Subjective pt remains afebrile. remains on emperic dapto and zosyn, tolerating well. wbc decreased to 9 today, creat 1.0. blood cultures negative to date x 2, s/p picc placement. OR cultures growing MSSA. sputum culture too many squamous cells. Results & Data ([facility]) Vital Signs (Past 12 Hours) Vital Signs Temp Pulse Pulse Resp BP BP Pulse Ox 06/25/19 07:29 68 06/25/19 06:54 77 19 93 06/25/19 03:54 36.6 C 80 18 152/91 H 97 06/25/19 00:39 77 18 96 06/25/19 00:37 77 18 94 06/24/19 22:49 36.6 C 78 18 148/83 H 93 Laboratory Results Microbiology 06/24/19 21:48 Sputum, Expectorated Gram Stain - Final 06/24/19 21:48 Sputum, Expectorated Sputum Culture - Final 06/23/19 14:30 Ankle,Right Gram Stain - Final 06/23/19 14:30 Ankle,Right Aerobic and Anaerobic Culture - Preliminary Staphylococcus aureus 06/22/19 11:24 Blood Aerobic Blood Culture - Preliminary No growth in Aerobic bottle after 48 hours. 06/22/19 11:24 Blood Anaerobic Blood Culture - Preliminary No growth in Anaerobic bottle after 48 hours. 06/22/19 11:24 Blood Aerobic Blood Culture - Preliminary No growth in Aerobic bottle after 48 hours. 06/22/19 11:24 Blood Anaerobic Blood Culture - Final 06/23/19 14:30 Ankle,Right Gram Stain - Final 06/23/19 14:30 Ankle,Right Aerobic and Anaerobic Culture - Preliminary Staphylococcus aureus 06/23/19 14:30 Ankle,Right Gram Stain - Final 06/23/19 14:30 Ankle,Right Aerobic and Anaerobic Culture - Preliminary Staphylococcus aureus 06/23/19 14:30 Ankle,Right Gram Stain - Final 06/23/19 14:30 Ankle,Right Aerobic and Anaerobic Culture - Preliminary Staphylococcus aureus PG Care Time/CCT Total # of Minutes Spent Total Time Spent with Patient: Total time spent is greater than 50% in coordination of care (as documented) at patient's floor/unit and/or counseling patient: Coding Level of Care Code 72594 Subseq Hosp Care Lvl 1 Diagnoses Postoperative wound infection T81.49XA
--- NOTE | 2019-06-25 10:21 | Cardiology Progress Note ---
Date of Service June 25, 2019 Assessment & Plan (1) Paroxysmal atrial fibrillation: (2) HTN (hypertension): (3) Postoperative wound infection: (4) Asthma: No recurrent atrial fibrillation overnight. Continue low-dose beta- mary therapy and telemetry monitoring. Episode of atrial fibrillation was transient and associated with postoperative wound infection. Blood pressure trending upward. Recommend restart lisinopril at reduced dose, 5 mg daily. (Outpatient dose 10 mg daily). Recommend further evaluation/risk medication regarding his chronic dyspnea on exertion with pharmacologic stress testing in the outpatient setting when infectious/orthopedic issues have resolved. Subjective Patient seen and examined at the bedside. Continues to note dry cough and expiratory wheeze. Receiving IV corticosteroids. Comfortable at rest. No exertional chest discomfort however continues to note a chest ache associated with cough. Denies palpitations, lightheadedness, dizziness, syncope, or syncope. No orthopnea, PND, or lower extremity edema. Patient able to move his right lower extremity today. He is feeling encouraged by his improvement. Lisinopril on hold since admission. Blood pressure trending upward. Review of Systems Review of Systems: All systems reviewed & are unremarkable except as noted in HPI & below Physical Exam Constitutional: well developed and + obese Respiratory: Auscultation: + wheezes (Bilateral expiratory); no crackles, no rales and no rhonchi Cardiovascular: Rate/Rhythm: regular rate and regular rhythm Heart Sounds: normal S1 and normal S2; no murmur and no cardiac rub Vessels: no JVD Extremities: no edema Gastrointestinal (Abdomen): Inspection/Auscultation: normal bowel sounds; abdomen not distended Percussion/Palpation: abdomen soft; abdomen nontender, no guarding and abdomen not rigid Musculoskeletal: Extremities: strength 5/5 throughout Skin: + wound (Right lower extremity. Dressing clean, dry, intact) Neurologic: moves all extremities; no focal motor deficits Speech / Cognition: normal speech Psychiatric: A+Ox3, euthymic affect Results & Data Vital Signs (Past 12 Hours) Vital Signs Temp Pulse Pulse Resp BP BP Pulse Ox 06/25/19 07:29 68 06/25/19 06:54 77 19 93 06/25/19 03:54 36.6 C 80 18 152/91 H 97 06/25/19 00:39 77 18 96 06/25/19 00:37 77 18 94 06/24/19 22:49 36.6 C 78 18 148/83 H 93 (1) HTN (hypertension) Hypertension type: essential hypertension Qualified Code(s): I10 - Essential (primary) hypertension (2) Asthma Asthma complication type: unspecified Asthma persistence: unspecified Asthma severity: unspecified severity Qualified Code(s): J45.909 - Unspecified asthma, uncomplicated
[2019-06-25] MEDS: cefTRIAXone SODIUM 2,000 MG in DEXTROSE 5% 50 ML IV SCH (10:24)
[2019-06-25] MEDS: lisinopriL 5 MG TAB PO SCH (10:47)
--- NOTE | 2019-06-25 11:17 | Hospitalist Progress Note ---
Date of Service June 25, 2019 Assessment & Plan (1) Severe sepsis: (2) Postoperative wound infection: sepsis resolved remains afebrile, BP stable blood cultures: negative so far ankle drainage culture: MSSA continue Dapto + Zosyn ID consulted, may need 6 weeks IV antibiotic (3) Acute on chronic respiratory failure with hypoxia: (4) COPD exacerbation: CXR: no pneumonia wheezing still present still on 2-3 L via NC continue Solumedrol, Nebs added Mucomysyt, Mucinex sputum culture ordered Pulm consulted (5) Atrial fibrillation and flutter: resolved no history in the past likely paroxysmal, related to Sepsis, COPD exacerbation converted to SR spontaneously echo preserved EF on Metoprolol tartrate 12.5mg po BID (6) TARUN (acute kidney injury): -Creatinine 1.6 -Likely multifactorial secondary to recent prescription of Bactrim and meloxicam, in addition to sepsis resolved (7) HTN (hypertension): - Lisinopril 5 mg ordered monitor for hyperkalemia (8) BPH (benign prostatic hyperplasia): -Continue tamsulosin and prazosin (9) VIK (obstructive sleep apnea): - Noncompliant with CPAP - Recommend outpatient follow-up with sleep or pulmonary medicine (10) Hyperkalemia: unclear etiology from right ankle surgery? mild no EKG changes improved to 4.9 monitor closely Thank you for this consultation. We will follow the patient with you during their hospital stay. You can reach a member of the [facility] Hospitalist Team 19/09 via pager @ [phone]. Admission and Anticipated Discharge Date Admission Date: June 22, 2019 Subjective ff up for right ankle wound infection, s/p recent surgery, with sepsis, copd exacerbation seen resting in bed, comfortable, on 2-3 L nasal cannula, in good spirits states he feels better overall today denies shortness of breath, has less cough, able to expel white/yellow sputum today no chest pain minimal discomfort on the RLE no other symptoms Review of Systems Review of Systems: All systems reviewed & are unremarkable except as noted in HPI & below Physical Exam Physical Exam: General- oriented x 3, not in distress, speaks in sentences with no effort or accessory muscle use Eyes- anicteric Neck- no JVD Lungs- (+) moderate wheeze BL no crackles Heart- normal rate, regular rhythm; no murmurs Abdomen- normal bowel sounds, nondistended, soft, nontender Extremities- LLE: no pretibial edema, no calf tenderness RLE: dressing and splint in place Neuro- alert, oriented x 3; no gross focal neurologic deficits Skin- warm & dry Results & Data Results & Data ([facility]) Vital Signs (Past 12 Hours) Vital Signs Temp Pulse Pulse Resp BP Pulse Ox 06/25/19 07:29 68 06/25/19 06:54 77 19 93 06/25/19 03:54 36.6 C 80 18 152/91 H 97 06/25/19 00:39 77 18 96 06/25/19 00:37 77 18 94
--- NOTE | 2019-06-25 11:49 | XRay Report ---
XR chest 1V portable HISTORY: 74 years-old Male wheezing, ff up cxr acute wheezing with shortness of breath COMPARISON: Chest radiograph 06/22/2019 TECHNIQUE: Portable AP view of the chest FINDINGS: A right-sided PICC has been placed in the interval, distal tip terminating in the expected location o f the superior cavoatrial junction. No postprocedural pneumothorax. Cardiac silhouette is enlarged, u nchanged. There is no large pleural effusion, overt pulmonary edema or airspace consolidation typical for pneumonia. Degenerative changes of the shoulders and spine. IMPRESSION: 1. Cardiomegaly without acute process. 2. Status post placement of a right-sided PICC, distal tip terminating in the expected location of th e superior cavoatrial junction. 3. No postprocedural pneumothorax. ACT 112: Negative or not required by law. The above report was generated using voice recognition software. It may contain grammatical, syntax o r spelling errors. Electronically signed by: Vitaliy Valladares M.D. 06/25/2019 11:48 AM
--- NOTE | 2019-06-25 12:21 | Pulmonary Consultation ---
Date of Consultation June 25, 2019 Assessment & Plan (1) Acute and chronic respiratory failure: --Acute exacerbation of his underlying asthma/COPD Continue with steroids, inhaled bronchodilators, mucolytic. O2 supplementation to keep saturation between 88 to 92% BiPAP nightly and PRN shortness of breath Chest x-ray 06/25/2019 personally reviewed: Supportable film, right arm pick appreciated, bilateral costophrenic and cardiophrenic angles are clean, Increased cardiac silhouette. No clear infiltrate appreciated. --History of tobacco use Approximately 59-[id number] smoking history Quit greater than 30 years ago --Morbid obesity advised to lose weight with diet and exercise Plan: Continue with inhaled bronchodilators, steroids. Continue with guaifenesin as mucolytic. Please note the above document was generated using voice recognition software. It may contain grammatical, syntax or spelling errors. (2) VIK (obstructive sleep apnea): (3) Chronic bronchitis: (4) Obesity: History of Present Illness Attending Physician: Owen Arboleda MD History of Present Illness 74-year-old male with past medical history of morbid obesity, VIK on CPAP was noncompliant when I saw him last time earlier this month, GERD, asthma/COPD, depression was admitted to the hospital this admission because of infection in the right lower extremity (ankle ) where he had the surgery done earlier this month. Patient was found to have MSSA for which she is on antibiotics. Pulmonary consult was made as patient was started to wheeze and complain of chest congestion since last couple of days. Patient has been coughing bringing up clear phlegm. No documented fever. Denies any chills. No dysuria, no diarrhea. Denies any chest pain. Does complain of chest tightness. States that he has been compliant with his CPAP since his previous admission. Social history: Approximately [id number] smoker, quit 30 years ago, denies any illicit drug use, heavy alcohol use Pets: Has a dog at home. Allergies Allergy/AdvReac Type Severity Reaction Status Date / Time ibuprofen Allergy Unknown HIVES Verified 06/22/19 10:45 Home Medications Home Medications Medication Instructions Recorded Confirmed Type Spiriva with HandiHaler 1 cap INHALATION DAILY PRN 11/30/17 06/22/19 History bupropion HCl 150 mg PO QAM 11/30/17 06/22/19 History clonazepam 0.5 mg PO DAILY 11/30/17 06/22/19 History gabapentin 600 mg PO TID 11/30/17 06/22/19 History lisinopril 10 mg PO DAILY 11/30/17 06/22/19 History pantoprazole 40 mg PO DAILY 11/30/17 06/22/19 History sertraline 100 mg PO BID 11/30/17 06/22/19 History tamsulosin [Flomax] 0.4 mg PO QPM 10/05/18 06/22/19 History atorvastatin 10 mg PO HS 05/26/19 06/22/19 History cetirizine 10 mg PO HS PRN 05/26/19 06/22/19 History montelukast 10 mg PO DAILY 05/26/19 06/22/19 History prazosin 5 mg PO HS 05/26/19 06/22/19 History aspirin 81 mg PO BID 42 Days #84 tab 05/30/19 06/22/19 Rx ipratropium-albuterol 3 ml INH Q6H PRN #90 ml 05/30/19 06/22/19 Rx methocarbamol 1,000 mg PO QID PRN #0 tab 05/30/19 06/22/19 Rx hydrocodone 5 mg-acetaminophen 325 1 tab PO Q6H PRN #20 tab 06/12/19 06/22/19 Rx mg tablet meloxicam 15 mg tablet 15 mg PO DAILY #30 tab 06/18/19 06/22/19 Rx sulfamethoxazole 800 1 tab PO BID 7 Days #14 tab 06/18/19 06/22/19 Rx mg-trimethoprim 160 mg tablet doxycycline hyclate 100 mg tablet 100 mg PO BID PRN #14 tab 06/21/19 06/22/19 Rx tramadol 50 mg tablet 50 mg PO Q6H PRN #30 tab 06/21/19 06/22/19 Rx budesonide-formoterol 2 puff INHALATION BID 06/22/19 06/22/19 History trazodone 300 mg PO HS 06/22/19 06/22/19 History Patient History Medical History Asthma (Chronic) BPH (benign prostatic hyperplasia) (Chronic) Chronic bronchitis Closed fracture dislocation of ankle (Acute) DDD (degenerative disc disease) (Acute) Diverticulitis HTN (hypertension) (Chronic) Intractable back pain (Acute) MRSA (methicillin resistant Staphylococcus aureus) (Chronic) negative nasal swab on 06/24/15 and 10/05/18 Obesity VIK on CPAP (Chronic) Noncompliant Prolonged QT interval CYa=005 EKG 05/25/19 PTSD (post-traumatic stress disorder) (Chronic) do not wake patient by touching, wake patient by saying name Surgical History History of back surgery (Chronic) back surgery x3 at [facility] History of partial colectomy S/P hernia repair Status post ORIF of fracture of ankle 05/26/[address] Farhan DIEZ with sedation. Family History Other Family history non-contributory Social History Preferred Language: Syriac Communication Ability: Effective Platen Press Feeder Required: No Beliefs That Will Affect Care: None marital status: Current Living Situation: Spouse Other Information That Helps Us Care for You: No Feels Safe at Home: Yes Safety Concerns: Feels Safe At This Time Smoking Status: Former smoker Tobacco Type: cigarettes ; Do You Dip or Chew Tobacco: Yes ; Second Hand Exposure: No ; Hx Alcohol Use: Yes Alcohol type: beer Hx Substance Use: No Review of Systems Review of Systems: All systems reviewed & are unremarkable except as noted in HPI & below Physical Exam Physical Exam: Constitutional: No acute distress HEENT: EOMI, PERRLA, thick neck, Mallampati 4 Respiratory system: Decreased air entry bilaterally, no crackles, positive expiratory wheeze bilaterally CVS: S1-S2 positive, no murmurs or gallops Abdomen: Soft, nontender, nondistended, positive bowel sounds x4 Extremities: +2 pulses bilaterally radialis/ dorsalis pedis, no cyanosis, no edema, right lower extremity in cast Neuro: Awake alert oriented x3 Psych: Normal mood and affect G/U: No Witt Skin: no rashes, warm and dry Lymphatic: no cervical or axillary lymphadenopathy Results & Data [facility] Vital Signs (Past 12 Hours) Vital Signs Temp Pulse Pulse Resp BP Pulse Ox 06/25/19 11:47 36.5 C 67 20 148/85 H 94 06/25/19 07:29 68 06/25/19 06:54 77 19 93 06/25/19 03:54 36.6 C 80 18 152/91 H 97 06/25/19 00:39 77 18 96 06/25/19 00:37 77 18 94 06/25/19 08:02 06/25/19 08:02 PG Care Time/CCT Total # of Minutes Spent Total Time Spent with Patient: Total time spent is greater than 50% in coordination of care (as documented) at patient's floor/unit and/or counseling patient: Coding Level of Care Code 49188 Initial Inpt Care Lvl 3 Diagnoses Acute and chronic respiratory failure J96.20 VIK (obstructive sleep apnea) G47.33 Chronic bronchitis J42 Obesity E66.9
[2019-06-25] MEDS: FLUTICASONE/VILANTEROL 200/25MCG 14 PUFFS/INHALER INH SCH (14:46)
[2019-06-25] MEDS: TRAZODONE HCL 100 MG TAB PO SCH (20:40)
[2019-06-25] MEDS: TAMSULOSIN HCL 0.4 MG CAP PO SCH (20:41)
[2019-06-25] MEDS: ATORVASTATIN 10 MG TAB PO SCH (20:41)
[2019-06-25] MEDS: SENNA 8.6 MG TAB PO SCH (20:46)
[2019-06-25] MEDS: MONTELUKAST SODIUM 10 MG TABLET PO SCH (20:46)
[2019-06-25] MEDS: PRAZOSIN HCL 1 MG CAP PO SCH (20:46)
[2019-06-26] MEDS: LEVALBUTEROL 1.25MG/0.5ML NEB INH SCH ×2 (00:07→07:04)
[2019-06-26] MEDS: IPRATROPIUM BROMIDE NEB SOLN 0.02% 2.5 ML VIAL INH SCH ×2 (00:07→07:04)
[2019-06-26] MEDS: TRAMADOL HCL 50 MG TABLET PO PRN ×4 (01:40→21:57)
[2019-06-26] MEDS: methylPREDNISolone 40 MG in SYRINGE 0 ML IV SCH ×2 (04:01→12:53)
[2019-06-26 06:15] LABS: BUN Creatinine Ratio 23.5 (10-20); Calcium 9.1 mg/dl (8.5-10.1); Creatinine Clr Calc Pharmacy 78.6 ml/min; Est GFR (African American) 98.5; Potassium 4.5 mmol/L (3.5-5.1)
[2019-06-26] MEDS: ACETYLCYSTEINE 10% INHAL SOLN 4 ML **DISPENSED BY RESP. INH SCH ×2 (07:05→18:56)
[2019-06-26] MEDS: cefTRIAXone SODIUM 2,000 MG in DEXTROSE 5% 50 ML IV SCH (09:21)
[2019-06-26] MEDS: SERTRALINE HCL 100 MG TABLET PO SCH ×2 (09:22→21:23)
[2019-06-26] MEDS: ENOXAPARIN INJ 40 MG/0.4 ML SYR SQ SCH (09:22)
[2019-06-26] MEDS: guaiFENesin 600 MG TABCR PO SCH ×3 (09:23→21:19)
[2019-06-26] MEDS: CHOLECALCIFEROL 1,000 UNITS 25 MCG TAB PO SCH (09:23)
[2019-06-26] MEDS: lisinopriL 5 MG TAB PO SCH (09:23)
[2019-06-26] MEDS: MULTIVITAMIN TAB PO SCH (09:23)
[2019-06-26] MEDS: GABAPENTIN 300 MG CAP PO SCH ×3 (09:24→21:20)
[2019-06-26] MEDS: VITAMIN A 25,000 UNIT CAP PO SCH (09:24)
[2019-06-26] MEDS: PANTOprazole 40 MG TAB PO SCH (09:24)
[2019-06-26] MEDS: BuPROPion XL 150 MG TABCR PO SCH (09:24)
[2019-06-26] MEDS: METOPROLOL TARTRATE 25 MG TAB PO SCH ×2 (09:25→21:18)
[2019-06-26] MEDS: DOCUSATE SODIUM 100 MG CAP PO SCH ×2 (09:26→21:17)
[2019-06-26] MEDS: INSULIN ASPART 100 UNITS/ML 3 ML PEN SC SCH ×4 (09:29→21:20)
[2019-06-26] MEDS: INSULIN GLARGINE SOLOSTAR 100 UNITS/ML 3 ML PEN SQ SCH (09:30)
--- NOTE | 2019-06-26 10:59 | Orthopedic Progress Note ---
Date of Service June 26, 2019 Assessment & Plan (1) Postoperative wound infection: POD # 3 - s/p I&D, hardware removal right ankle. Continue OOB/NWB RLE Continue Wound vac - plan to have it changed tomorrow () PICC in place right arm. Continued regular heart healthy diet. Strict NWB RLE at all times - allowed to be out of bed to chair as tolerated PT/OT as ordered Case management for disposition - discussed inpatient rehab vs. home with home health and PT, possible discharge on ; working on authorization for [facility]. Appreciate ID, hospitalist and wound care nurse assistance IV antibiotics as ordered or changed by ID. Cultures show methacillin sensitive staph. aureus. Ice and elevated as needed for pain/swelling. Continue immobilization with splint or boot right lower extremity. Allowed to wear boot if more comfortable. Recommended that we try to put that on tomorrow after his next vac change. Continue Lovenox 40 mg daily x 14 days for DVT prophylaxis. Will discuss findings with Dr. Arboleda. All questions answered today. Admission and Anticipated Discharge Date Admission Date: June 22, 2019 Subjective Patient doing well, states that he is feeling much better. He's complaining of some pain from the splint right leg. Has been out of bed, using bedside commode. States abiding by NWB RLE. Has been keeping foot elevated. Tolerating regular diet Tolerating PT/OT Denies lightheadedness, dizziness, chest pain, shortness of breath, nausea or vomiting. Pain well controlled. Physical Exam Musculoskeletal: exam of right ankle: Mild distal edema, especially laterally. Splint removed today due to pain. Medial incision with ser ousanguinous drainage on dressings, no active drainage, but incision clean and intact, some maceration of skin middle part of incision, and able to express small amount of serous fluid, no fluctuance or purulence. Tender with palpation, but improved. Sutures retained and intact. Wound vac functioning on lateral aspect of ankle. Right ankle elevated, still some paresthesia dorsum of toes and midfoot, but strength with toe and ankle dorsiflexion and plantarflexion 5/5. Foot warm, cap refill brisk. Splint and dressings reapplied. Splint much more comfortable. Results & Data ([facility]) Vital Signs (Past 12 Hours) Vital Signs Temp Pulse Pulse Pulse Resp BP BP 06/26/19 08:40 72 06/26/19 07:31 36.2 C L 79 20 155/82 H 06/26/19 07:10 63 16 06/26/19 04:00 36.3 C L 56 L 20 162/88 H 06/26/19 03:48 78 06/26/19 00:09 69 18 06/25/19 23:00 36.5 C 75 20 170/82 H Pulse Ox 06/26/19 08:40 06/26/19 07:31 96 06/26/19 07:10 93 06/26/19 04:00 96 06/26/19 03:48 06/26/19 00:09 94 06/25/19 23:00 91 Laboratory Results 06/26/19 06/26/19 06/25/19 Range/Units 07:31 05:26 20:20 Sodium 142 (136-145) mmol/L Potassium 4.5 (3.5-5.1) mmol/L Chloride 110 H (98-107) mmol/L Carbon Dioxide 29 (21-32) mmol/L Anion Gap 3.0 (3-11) BUN 21 H (7-18) mg/dl Creatinine 0.90 (0.6-1.4) mg/dl Est Cr Clr Drug Dosing 78.6 ml/min Est GFR ( Amer) 98.5 Est GFR (Non-Af Amer) 85.0 BUN/Creatinine Ratio 23.5 H (10-20) Glucose 127 H (70-99) mg/dl POC Glucose 139 H 161 H (70-99) mg/dl Calcium 9.1 (8.5-10.1) mg/dl 06/25/19 06/25/19 Range/Units 16:30 11:28 Sodium (136-145) mmol/L Potassium (3.5-5.1) mmol/L Chloride (98-107) mmol/L Carbon Dioxide (21-32) mmol/L Anion Gap (3-11) BUN (7-18) mg/dl Creatinine (0.6-1.4) mg/dl Est Cr Clr Drug Dosing ml/min Est GFR ( Amer) Est GFR (Non-Af Amer) BUN/Creatinine Ratio (10-20) Glucose (70-99) mg/dl POC Glucose 100 H 170 H (70-99) mg/dl Calcium (8.5-10.1) mg/dl
[2019-06-26] MEDS ORDERED: LEVALBUTEROL 1.25MG/0.5ML NEB INH PRN (12:35)
[2019-06-26] MEDS ORDERED: IPRATROPIUM BROMIDE NEB SOLN 0.02% 2.5 ML VIAL INH PRN (12:35)
--- NOTE | 2019-06-26 13:22 | Pulmonology Progress Note ---
Date of Service June 26, 2019 Assessment & Plan (1) Acute and chronic respiratory failure: --Acute exacerbation of his underlying asthma/COPD Continue with steroids, inhaled bronchodilators, mucolytic. O2 supplementation to keep saturation between 88 to 92% BiPAP nightly and PRN shortness of breath Chest x-ray 06/25/2019 personally reviewed: Supportable film, right arm pick appreciated, bilateral costophrenic and cardiophrenic angles are clean, Increased cardiac silhouette. No clear infiltrate appreciated. --History of tobacco use Approximately 80-[id number] smoking history Quit greater than 30 years ago --Morbid obesity advised to lose weight with diet and exercise Plan: Clinically patient doing better. Continue with inhaled bronchodilators, taper down Solu-Medrol to 40 mg every 12hrs. Can think about transitioning to p.o. within the next 24-48 hours. Please note the above document was generated using voice recognition software. It may contain grammatical, syntax or spelling errors. (2) VIK (obstructive sleep apnea): (3) Chronic bronchitis: (4) Obesity: Admission and Anticipated Discharge Date Admission Date: June 22, 2019 Subjective Patient seen and examined at bedside. No acute distress, no adverse events overnight. States that the shortness of breath is improved. Denies any chest pain, no dizziness, no headache. Good appetite, denies any nausea or vomiting. Patient did not use CPAP overnight. Review of Systems Review of Systems: All systems reviewed & are unremarkable except as noted in HPI & below Physical Exam Physical Exam: Constitutional: No acute distress HEENT: EOMI, PERRLA, thick neck, Mallampati 4 Respiratory system: Decreased air entry bilaterally, no crackles, positive ex piratory wheeze bilaterally (improved from yesterday) CVS: S1-S2 positive, no murmurs or gallops Abdomen: Soft, nontender, nondistended, positive bowel sounds x4 Extremities: +2 pulses bilaterally radialis/ dorsalis pedis, no cyanosis, no edema, right lower extremity in cast Neuro: Awake alert oriented x3 Psych: Normal mood and affect G/U: No Witt Skin: no rashes, warm and dry Lymphatic: no cervical or axillary lymphadenopathy Results & Data Results & Data ([facility]) Vital Signs (Past 12 Hours) Vital Signs Temp Pulse Pulse Pulse Resp BP BP 06/26/19 13:01 74 16 06/26/19 11:18 36.9 C 73 22 165/75 H 06/26/19 08:40 72 06/26/19 07:31 36.2 C L 79 20 155/82 H 06/26/19 07:10 63 16 06/26/19 04:00 36.3 C L 56 L 20 162/88 H 06/26/19 03:48 78 Pulse Ox 06/26/19 13:01 96 06/26/19 11:18 93 06/26/19 08:40 06/26/19 07:31 96 06/26/19 07:10 93 06/26/19 04:00 96 06/26/19 03:48 06/25/19 08:02 06/26/19 05:26 PG Care Time/CCT Total # of Minutes Spent Total Time Spent with Patient: Total time spent is greater than 50% in coordination of care (as documented) at patient's floor/unit and/or counseling patient: Coding Level of Care Code 19966 Subseq Hosp Care Lvl 2 Diagnoses Acute and chronic respiratory failure J96.20 VIK (obstructive sleep apnea) G47.33 Chronic bronchitis J42 Obesity E66.9
[2019-06-26] MEDS ORDERED: MoRPHine SULFATE 2 MG/ML CARP IV STA (15:10)
--- NOTE | 2019-06-26 15:14 | Hospitalist Progress Note ---
Date of Service June 26, 2019 Assessment & Plan (1) Severe sepsis: (2) Postoperative wound infection: -This is a patient with ORIF of his right ankle with Dr. Real on 05/26/19 who presented to the ER on 06/22/2019 with presented to the ED with complaints of right ankle pain, swelling, redness, warmth and fevers. Because of sepsis from right ankle wound infection, Dr. Arboleda on 06/23/2019 performed Incision and Drainage Right ankle, removal of hardware, arthrotomy(Right). Patient also had wound vac from this procedure -was initially on currently on Daptomycin and Zosyn -cultures growing MSSA, blood cultures negative so Dr. Arteaga from Infectious disease changed antibiotic regimen to Ceftriaxone 2g IV daily, and suggest minimum of 6 weeks IV abx. will need weekly cbc, cmp, esr while on therapy. -has PICC line -activities as per orthopedic service is OOB/NWB RLE(Strict NWB RLE at all times - allowed to be out of bed to chair as tolerated) -Orthopedic service continue wound vac for now and then plans on Continue immobilization with splint or boot right lower extremity and then patient may need a stay a physical rehabilitation center after this hospital stay -as per orthopedic notes on 06/26/2019: Continue Lovenox 40 mg daily x 14 days for DVT prophylaxis. -patient on prn pain medications and scheduled bowel regimen Hospitalist medicine following as consult service and agrees with these plans (3) Acute on chronic respiratory failure with hypoxia: (4) COPD exacerbation: Acute exacerbation of his underlying asthma/COPD -Continue with steroids, inhaled bronchodilators, mucolytic. -O2 supplementation to keep saturation between 88 to 92% -BiPAP nightly and PRN shortness of breath (5) Atrial fibrillation and flutter: resolved no history in the past likely paroxysmal, related to Sepsis, COPD exacerbation converted to SR spontaneously echo preserved EF on Metoprolol tartrate 12.5mg po BID (6) TARUN (acute kidney injury): -admission 06/21 Creatinine 1.6 -has been resolved (7) HTN (hypertension): - Lisinopril transitioned from 5 mg to 10 mg daily a of 06/26/2019 (8) Hyperkalemia: -peak serum potassium to date was 5.5 and 5.6 on 06/21/to 4/26 -serum potassium under 5 (9) BPH (benign prostatic hyperplasia): -Continue tamsulosin and prazosin (10) VIK (obstructive sleep apnea): - Noncompliant with CPAP - Recommend outpatient follow-up with sleep or pulmonary medicine Admission and Anticipated Discharge Date Admission Date: June 22, 2019 Subjective Patient seen and examined at bedside. No acute respiratory distress but patient reports some wheezing even though this is not readily audible on my physical exams. patient's nebulizer treatments resumed as scheduled dosing rather than prn. No chest pa. No abdomen pain. Patient needing additional pain medications for right leg pain. no fevers overnight. Patient does not report other acute s ymptoms Review of Systems Review of Systems: All systems reviewed & are unremarkable except as noted in Subjective Physical Exam Constitutional: + obese Eyes: PERRL, conjunctivae normal, anicteric sclerae EOM intact bilaterally ENMT: external ear and nose normal, oropharynx normal Neck: normal visual inspection Respiratory: normal respiratory effort Cardiovascular: Rate/Rhythm: regular rate Gastrointestinal (Abdomen): normal bowel sounds, soft, nontender, no hepatosplenomegaly Musculoskeletal: Head/Neck/Chest: normocephalic right foot in dressing and drain Neurologic: PERRL, EOMI, accommodation nl, no face palsy, no dysarthria Psychiatric: A+Ox3, euthymic affect Results & Data Results & Data ([facility]) Vital Signs (Past 12 Hours) Vital Signs Temp Pulse Pulse Pulse Resp BP BP 06/26/19 13:01 74 16 06/26/19 11:18 36.9 C 73 22 165/75 H 06/26/19 08:40 72 06/26/19 07:31 36.2 C L 79 20 155/82 H 06/26/19 07:10 63 16 06/26/19 04:00 36.3 C L 56 L 20 162/88 H 06/26/19 03:48 78 Pulse Ox 06/26/19 13:01 96 06/26/19 11:18 93 06/26/19 08:40 06/26/19 07:31 96 06/26/19 07:10 93 06/26/19 04:00 96 06/26/19 03:48
[2019-06-26] MEDS ORDERED: lisinopriL 5 MG TAB PO ONE (15:15)
--- NOTE | 2019-06-26 15:27 | Cardiology Progress Note ---
Date of Service June 26, 2019 Assessment & Plan (1) Paroxysmal atrial fibrillation: (2) HTN (hypertension): (3) Postoperative wound infection: (4) Asthma: No recurrence of atrial fibrillation. Continue low-dose beta-mary therapy and telemetry monitoring. Titrate lisinopril to 10 mg daily. Outpatient pharmacologic stress testing will be scheduled when infectious/orthopedic issues have resolved. Subjective Patient seen and examined at the bedside. Cough and expiratory wheeze unchanged. Reports right lower extremity discomfort more prominent today. Overall pain is controlled. Denies chest pain or palpitations. Brief kiarra of paroxysmal atrial tachycardia, 10 beat duration, this a.m. No recurrent atrial fibrillation on telemetry. Blood pressure remains elevated. Lisinopril 5 mg restarted yesterday. Patient offers no other concerns/complaints this time. Review of Systems Review of Systems: All systems reviewed & are unremarkable except as noted in HPI & below Physical Exam Constitutional: well developed and + obese Respiratory: Auscultation: + wheezes (Bilateral expiratory); no crackles, no rales and no rhonchi Cardiovascular: Rate/Rhythm: regular rate and regular rhythm Heart Sounds: normal S1 and normal S2; no murmur and no cardiac rub Vessels: no JVD Extremities: no edema Gastrointestinal (Abdomen): Inspection/Auscultation: normal bowel sounds; abdomen not distended Percussion/Palpation: abdomen soft; abdomen nontender, no guarding and abdomen not rigid Musculoskeletal: Extremities: strength 5/5 throughout Skin: + wound (Right lower extremity. Dressing clean, dry, intact) Neurologic: moves all extremities; no focal motor deficits Speech / Cognition: normal speech Psychiatric: A+Ox3, euthymic affect Results & Data Vital Signs (Past 12 Hours) Vital Signs Temp Pulse Pulse Pulse Resp BP BP 06/26/19 13:01 74 16 06/26/19 11:18 36.9 C 73 22 165/75 H 06/26/19 08:40 72 06/26/19 07:31 36.2 C L 79 20 155/82 H 06/26/19 07:10 63 16 06/26/19 04:00 36.3 C L 56 L 20 162/88 H 06/26/19 03:48 78 Pulse Ox 06/26/19 13:01 96 06/26/19 11:18 93 06/26/19 08:40 06/26/19 07:31 96 06/26/19 07:10 93 06/26/19 04:00 96 06/26/19 03:48 (1) HTN (hypertension) Hypertension type: essential hypertension Qualified Code(s): I10 - Essential (primary) hypertension (2) Asthma Asthma complication type: unspecified Asthma persistence: unspecified Asthma severity: unspecified severity Qualified Code(s): J45.909 - Unspecified asthma, uncomplicated
[2019-06-26] MEDS: ALBUT/IPRATROP 3MG/0.5MG NEB 3 ML VIAL NEB SCH ×2 (15:30→18:56)
[2019-06-26] MEDS: FLUTICASONE/VILANTEROL 200/25MCG 14 PUFFS/INHALER INH SCH (15:46)
[2019-06-26] MEDS ORDERED: methylPREDNISolone 40 MG in SYRINGE 0 ML IV SCH (21:00)
[2019-06-26] MEDS: SENNA 8.6 MG TAB PO SCH (21:17)
[2019-06-26] MEDS: TAMSULOSIN HCL 0.4 MG CAP PO SCH (21:17)
[2019-06-26] MEDS: ATORVASTATIN 10 MG TAB PO SCH (21:18)
[2019-06-26] MEDS: PRAZOSIN HCL 1 MG CAP PO SCH (21:21)
[2019-06-26] MEDS: MONTELUKAST SODIUM 10 MG TABLET PO SCH (21:22)
[2019-06-26] MEDS: TRAZODONE HCL 100 MG TAB PO SCH (21:23)
[2019-06-26] MEDS: OXYCODONE/ACETAMINOPHEN 5mg/325mg TAB PO PRN (23:59)
[2019-06-27] MEDS: ALBUT/IPRATROP 3MG/0.5MG NEB 3 ML VIAL NEB SCH ×2 (00:11→06:57)
[2019-06-27 06:14] LABS: BUN Creatinine Ratio 24.5 (10-20); Calcium 9.3 mg/dl (8.5-10.1); Creatinine Clr Calc Pharmacy 82.5 ml/min; Est GFR (African American) 99.9; Est GFR (Non-African American) 86.2; Potassium 4.4 mmol/L (3.5-5.1)
[2019-06-27] MEDS: ACETYLCYSTEINE 10% INHAL SOLN 4 ML **DISPENSED BY RESP. INH SCH (06:57)
[2019-06-27] MEDS: OXYCODONE/ACETAMINOPHEN 5mg/325mg TAB PO PRN ×3 (08:22→18:30)
[2019-06-27] MEDS ORDERED: ALBUT/IPRATROP 3MG/0.5MG NEB 3 ML VIAL NEB PRN (08:31)
--- NOTE | 2019-06-27 08:31 | Hospitalist Progress Note ---
Date of Service June 27, 2019 Assessment & Plan (1) Severe sepsis: (2) Postoperative wound infection: -This is a patient with ORIF of his right ankle with Dr. Real on 05/26/19 who presented to the ER on 06/22/2019 with presented to the ED with complaints of right ankle pain, swelling, redness, warmth and fevers. Because of sepsis from right ankle wound infection, Dr. Arboleda on 06/23/2019 performed Incision and Drainage Right ankle, removal of hardware, arthrotomy(Right). Patient also had wound vac from this procedure -patient on prn pain medications and scheduled bowel regimen -was initially on Daptomycin and Zosyn -cultures growing MSSA, blood cultures negative so Dr. Arteaga from Infectious disease changed antibiotic regimen to Ceftriaxone 2g IV daily, and suggest minimum of 6 weeks IV abx. will need weekly cbc, cmp, esr while on therapy. -has PICC line -activities as per orthopedic service is OOB/NWB RLE(Strict NWB RLE at all times - allowed to be out of bed to chair as tolerated) -as per orthopedic notes on 06/26/2019: Continue Lovenox 40 mg daily x 14 days for DVT prophylaxis. -Orthopedic service pull off the wound vac on 06/27/2019 -06/27/2019: patient seen by hospitalist when orthopedic team/wound care team at bedside. Orthopedics Dr. Arboleda planning to discharge to patient to [facility] for physical rehabilitation and then subsequent wound care clinic follow up. Patient breathing on nasal cannula. No wheezing on exam. no cough. no acute pain symptoms at this time Hospitalist medicine following as consult service and agrees with these plans (3) Acute on chronic respiratory failure with hypoxia: (4) COPD exacerbation: Acute exacerbation of his underlying asthma/COPD -O2 supplementation to keep saturation between 88 to 92% -BiPAP nightly and PRN shortness of breath -because of methylprednisone of 40 mg q12 IV use while inpatient, recommend short course of prednisone with taper to avoid abrupt discontinuation of respiratory steroids - prednisone 40 mg daily for 2 days, 20 mg daily for 2 days then stop -orthopedics planning on discharging the patient to [facility], mucolytics stopped, and nebulizer treatments can be transitioned to prn basis (5) Atrial fibrillation and flutter: -no history in the past, likely paroxysmal related to Sepsis and COPD exacerbation. currently in sinus rhythm -echocardiogram preserved Ejection Fraction, on Metoprolol tartrate 12.5mg po BID (6) TARUN (acute kidney injury): -admission 06/21 Creatinine 1.6 -TARUN has been resolved (7) HTN (hypertension): - Lisinopril transitioned from 5 mg to 10 mg daily a of 06/26/2019 (8) Hyperkalemia: -peak serum potassium to date was 5.5 and 5.6 on 06/21/to 06/22 -serum potassium currently under 5, as 4.4 (9) BPH (benign prostatic hyperplasia): -Continue tamsulosin and prazosin (10) VIK (obstructive sleep apnea): - Noncompliant with CPAP - Recommend outpatient follow-up with sleep or pulmonary medicine for follow up for Obstructive Sleep Apnea Admission and Anticipated Discharge Date Admission Date: June 22, 2019 Subjective patient seen by hospitalist when orthopedic team/wound care team at bedside. Orthopedics Dr. Arboleda [facility] for physical rehabilitation and then subsequent wound care clinic follow up. Patient breathing on nasal cannula. No wheezing on exam. no cough. no acute pain symptoms at this time Physical Exam Constitutional: + obese Eyes: PERRL, conjunctivae normal, anicteric sclerae EOM intact bilaterally ENMT: external ear and nose normal, oropharynx normal Neck: normal visual inspection Respiratory: normal respiratory effort Cardiovascular: Rate/Rhythm: regular rate Gastrointestinal (Abdomen): normal bowel sounds, soft, nontender, no hepatosplenomegaly Musculoskeletal: Head/Neck/Chest: normocephalic Neurologic: PERRL, EOMI, accommodation nl, no face palsy, no dysarthria Psychiatric: A+Ox3, euthymic affect Results & Data Results & Data ([facility]) Vital Signs (Past 12 Hours) Vital Signs Temp Pulse Pulse Pulse Resp BP Pulse Ox 06/27/19 07:14 54 L 06/27/19 07:08 36.6 C 67 18 162/86 H 98 06/27/19 06:57 67 14 98 06/27/19 03:22 66 18 94 06/27/19 03:06 36.5 C 20 L 68 20 162/94 H 94 06/27/19 00:18 83 20 91 06/27/19 00:11 83 20 91 06/26/19 23:55 76 06/26/19 23:27 36.6 C 71 19 160/85 H 93 06/26/19 22:11 79 16 96
[2019-06-27] MEDS: cefTRIAXone SODIUM 2,000 MG in DEXTROSE 5% 50 ML IV SCH (09:05)
[2019-06-27] MEDS: CHOLECALCIFEROL 1,000 UNITS 25 MCG TAB PO SCH (09:07)
[2019-06-27] MEDS: MULTIVITAMIN TAB PO SCH (09:07)
[2019-06-27] MEDS: SERTRALINE HCL 100 MG TABLET PO SCH ×2 (09:07→20:51)
[2019-06-27] MEDS: guaiFENesin 600 MG TABCR PO SCH ×2 (09:07→20:51)
[2019-06-27] MEDS: PANTOprazole 40 MG TAB PO SCH (09:07)
[2019-06-27] MEDS: predniSONE 20 MG TAB PO SCH (09:07)
[2019-06-27] MEDS: VITAMIN A 25,000 UNIT CAP PO SCH (09:08)
[2019-06-27] MEDS: lisinopriL 10 MG TAB PO SCH (09:08)
[2019-06-27] MEDS: GABAPENTIN 300 MG CAP PO SCH ×3 (09:08→20:51)
[2019-06-27] MEDS: DOCUSATE SODIUM 100 MG CAP PO SCH ×2 (09:09→20:54)
[2019-06-27] MEDS: ENOXAPARIN INJ 40 MG/0.4 ML SYR SQ SCH (09:09)
[2019-06-27] MEDS: BuPROPion XL 150 MG TABCR PO SCH (09:10)
[2019-06-27] MEDS: INSULIN GLARGINE SOLOSTAR 100 UNITS/ML 3 ML PEN SQ SCH (09:10)
[2019-06-27] MEDS: INSULIN ASPART 100 UNITS/ML 3 ML PEN SC SCH ×4 (09:11→20:52)
--- NOTE | 2019-06-27 09:15 | Progress Notes ---
DATE: 06/27/2019 Mr. De Los Santos is resting comfortably in bed. He has reported that he has been up using his walker in his room with physical therapy. He has been out of bed to chair. He notes continued discomfort in the ankle, more so on the top of the foot and in the back of the heel. He reports that his breathing is better but still some difficulty. The patient is examined with Daisy Landaverde and Dr. Arevalo and Dr. Harman. The wound VAC is removed on the right ankle. He has numbness of the toes. There is sensitivity on the dorsum of the foot with intact sensation. He has normal sensation on the plantar aspect of his foot. The foot is warm with capillary refill less than 2 seconds. Wrinkles are present and there is no significant swelling and no erythema. Pedal pulses, dorsalis pedis and posterior tibial are dopplerable. The medial wound shows a central area 0.5 cm in size on both sides of the wound with some fibrinous debris, but otherwise appears to be healing well and there was no accumulation of fluctuance or drainage noted. The lateral wound is healing well at its upper two-thirds. The lower one-third remains open. There is some fibrinous exudate over the wound. The fibula is exposed as are the peroneal tendons, but there is a thin layer of tenosynovium or periosteum covering these. Daisy Landaverde applied topical lidocaine with the patient's permission and Dr. Harman attempted debridement with a curette, but the tissue was too adherent. IMPRESSION: Open right ankle wound, status post internal fixation of trimalleolar ankle fracture with wound necrosis and subsequent infection. He is also on steroids for his chronic obstructive pulmonary disease. He has had atrial fibrillation/atrial flutter. The patient is also vitamin D deficient. PLAN: We have more thoroughly assessed his vascular status today and I have consulted Dr. Murray. We will continue with medical treatment as outlined by cardiology, pulmonology and hospitalist services; thank you for your input. His labs are noted. He is afebrile. His vital signs are stable. PRP shows a minor elevation of his BUN. He is mildly anemic. He has a PICC line and we will continue IV antibiotics per infectious diseases' recommendation, ceftriaxone 2 grams. Lovenox for DVT prophylaxis. Ergocalciferol 50,000 units q. week to replace is low vitamin D. Vitamin A 25,000 units orally for 7-10 days while on steroids. After consulting with wound care team, we will continue with irrigating wound VAC. We will try to incorporate the medial wound in the VAC as well. Apply a fracture boot, which is at bedside. Continue to elevate. The patient is to do leg lifts, bend his knee. He can wiggle his toes and move the ankle. He is to not put any weight on the leg and can be out of bed with walker and assistance or to chair. His ultimate disposition at this time will be to [facility]. He will have followups in the wound care clinic and with other healthcare providers as indicated including pulmonology, cardiology and infectious diseases. His primary orthopedic followup will be with Dr. Real. We will await Dr. Murray's assessment today to determine his disposition. Discussed with the patient that the open area that he is currently seeing was the necrotic tissue that was unhealthy and would not heal. In order to get the wound to heal, the tissue needed to be removed back to healthy tissue. This left a large portion of the plate exposed. This will not heal and the plate will remain infected, and therefore, the plate needed to come out. Nutrition consult.
[2019-06-27] MEDS: TRAMADOL HCL 50 MG TABLET PO PRN ×2 (09:18→15:21)
[2019-06-27] MEDS: METOPROLOL TARTRATE 25 MG TAB PO SCH ×2 (09:18→20:51)
--- NOTE | 2019-06-27 11:26 | Pulmonology Progress Note ---
Date of Service June 27, 2019 Assessment & Plan (1) Acute and chronic respiratory failure: --Acute exacerbation of his underlying asthma/COPD Continue with steroids, inhaled bronchodilators, mucolytic. O2 supplementation to keep saturation between 88 to 92% BiPAP nightly and PRN shortness of breath Chest x-ray 06/25/2019 personally reviewed: Supportable film, right arm pick appreciated, bilateral costophrenic and cardiophrenic angles are clean, Increased cardiac silhouette. No clear infiltrate appreciated. --Obstructive sleep apnea Patient has been using his CPAP regularly now Importance of compliance with CPAP explained to the patient in depth. --History of tobacco use Approximately [id number] smoking history Quit greater than 30 years ago --Morbid obesity advised to lose weight with diet and exercise Plan: Patient saturating 97% on room air with heart rate of 71 at rest at the time of examination. Patient has chronic history of hoarseness of voice. I remember him seeing this month and he still had hoarseness of voice at that time too. Steroids has been tapered to p.o. Recommend 40 mg for 3 days followed by 20 mg for 2 days and stopping it. Continue with mucolytic. We will add incentive spirometry. Please note the above document was generated using voice recognition software. It may contain grammatical, syntax or spelling errors. (2) VIK (obstructive sleep apnea): (3) Chronic bronchitis: (4) Obesity: Admission and Anticipated Discharge Date Admission Date: June 22, 2019 Subjective Patient seen and examined at bedside. No acute distress, no adverse events overnight. Shortness of breath is improved. Patient still complaining of cough but has decreased in intensity. Patient walked with a scooter today. No abdominal pain. Denies any headache, no dizziness. Good appetite. Patient uses CPAP overnight. Review of Systems Review of Systems: All systems reviewed & are unremarkable except as noted in HPI & below Physical Exam Physical Exam: Constitutional: No acute distress HEENT: EOMI, PERRLA, thick neck, Mallampati 4, hoarse voice Respiratory system: Decreased air entry bilaterally, no crackles, positive expiratory wheeze bilaterally CVS: S1-S2 positive, no murmurs or gallops Abdomen: Soft, nontender, nondistended, positive bowel sounds x4 Extremities: +2 pulses bilaterally radialis/ dorsalis pedis, no cyanosis, no edema, right lower extremity in cast Neuro: Awake alert oriented x3 Psych: Normal mood and affect G/U: No Witt Skin: no rashes, warm and dry Lymphatic: no cervical or axillary lymphadenopathy Results & Data Results & Data ([facility]) Vital Signs (Past 12 Hours) Vital Signs Temp Pulse Pulse Pulse Pulse Resp BP 06/27/19 11:18 36.5 C 67 18 126/71 06/27/19 10:00 06/27/19 09:24 74 06/27/19 07:14 54 L 06/27/19 07:08 36.6 C 67 18 162/86 H 06/27/19 06:57 67 14 06/27/19 03:22 66 18 06/27/19 03:06 36.5 C 20 L 68 20 162/94 H 06/27/19 00:18 83 20 06/27/19 00:11 83 20 06/26/19 23:55 76 06/26/19 23:27 36.6 C 71 19 160/85 H Pulse Ox 06/27/19 11:18 93 06/27/19 10:00 94 06/27/19 09:24 06/27/19 07:14 06/27/19 07:08 98 06/27/19 06:57 98 06/27/19 03:22 94 06/27/19 03:06 94 06/27/19 00:18 91 06/27/19 00:11 91 06/26/19 23:55 06/26/19 23:27 93 06/25/19 08:02 06/27/19 05:23 PG Care Time/CCT Total # of Minutes Spent Total Time Spent with Patient: Total time spent is greater than 50% in coordination of care (as documented) at patient's floor/unit and/or counseling patient: Coding Level of Care Code 11005 Subseq Hosp Care Lvl 3 Diagnoses Acute and chronic respiratory failure J96.20 VIK (obstructive sleep apnea) G47.33 Chronic bronchitis J42 Obesity E66.9
--- NOTE | 2019-06-27 12:31 | Cardiology Progress Note ---
Date of Service June 27, 2019 Assessment & Plan (1) Paroxysmal atrial fibrillation: (2) HTN (hypertension): (3) Postoperative wound infection: (4) Asthma: No recurrence of atrial fibrillation or atrial tachycardia on telemetry. Continue low-dose beta-mary therapy. Continue lisinopril and atorvastatin. Outpatient pharmacologic stress testing when infectious/orthopedic issues have resolved. Subjective Patient seen exam at the bedside. No recurrent atrial fibrillation or atrial tachycardia on telemetry. Notes mild worsening of right lower extremity pain this AM. Denies chest pain or palpitations. No shortness of breath, orthopnea, PND, or lightheadedness. Respiratory status mildly improved with continued expiratory wheezing and nonproductive cough. Blood pressure improved. Lisinopril titrated to 10 mg daily yesterday 06/26/2019. Review of Systems Review of Systems: All systems reviewed & are unremarkable except as noted in HPI & below Physical Exam Constitutional: well developed and + obese Respiratory: Auscultation: + wheezes (Bilateral expiratory); no crackles, no rales and no rhonchi Cardiovascular: Rate/Rhythm: regular rate and regular rhythm Heart Sounds: normal S1 and normal S2; no murmur and no cardiac rub Vessels: no JVD Extremities: no edema Gastrointestinal (Abdomen): Inspection/Auscultation: normal bowel sounds; abdomen not distended Percussion/Palpation: abdomen soft; abdomen nontender, no guarding and abdomen not rigid Musculoskeletal: Extremities: strength 5/5 throughout Skin: + wound (Right lower extremity. Dressing clean, dry, intact) Neurologic: moves all extremities; no focal motor deficits Speech / Cognition: normal speech Psychiatric: A+Ox3, euthymic affect Results & Data Vital Signs (Past 12 Hours) Vital Signs Temp Pulse Pulse Pulse Pulse Resp BP 06/27/19 11:18 36.5 C 67 18 126/71 06/27/19 10:00 06/27/19 09:24 74 06/27/19 07:14 54 L 06/27/19 07:08 36.6 C 67 18 162/86 H 06/27/19 06:57 67 14 06/27/19 03:22 66 18 06/27/19 03:06 36.5 C 20 L 68 20 162/94 H Pulse Ox 06/27/19 11:18 93 06/27/19 10:00 94 06/27/19 09:24 06/27/19 07:14 06/27/19 07:08 98 06/27/19 06:57 98 06/27/19 03:22 94 06/27/19 03:06 94 (1) HTN (hypertension) Hypertension type: essential hypertension Qualified Code(s): I10 - Essential (primary) hypertension (2) Asthma Asthma complication type: unspecified Asthma persistence: unspecified Asthma severity: unspecified severity Qualified Code(s): J45.909 - Unspecified asthma, uncomplicated
--- NOTE | 2019-06-27 13:09 | Consultation ---
Date of Consultation June 27, 2019 Assessment & Plan (1) Open wound of ankle with complication: On exam, he has decreased pulses in both feet. Due to the immobilizer he has on wound order a CTA of the right lower extremity. Depending on these results will determine if he needs any vascular intervention at this time. This was ordered for today. Thank you very much for letting us participate in the care of this patient. Encounter type: initial encounter Laterality: right Qualified Code(s): S91.001A - Unspecified open wound, right ankle, initial encounter History of Present Illness Reason for Consultation: Open post op wound right ankle. Attending Physician: Owen Arbloeda MD History of Present Illness This is a 74 year old male who had a fractured ankle and was repaired with hardware. He returned to the hospital with a wound infection and had an incision of drainage with removal of the hardware. He has an open wound of the right ankle being treated with a wound vac. He does complain of mild cramping in his calves when he walked before his ankle fracture. He denies rest pain in the foot. Allergies Allergy/AdvReac Type Severity Reaction Status Date / Time ibuprofen Allergy Intermediate HIVES Verified 06/26/19 15:18 Home Medications Home Medications Medication Instructions Recorded Confirmed Type Spiriva with HandiHaler 1 cap INHALATION DAILY PRN 11/30/17 06/22/19 History bupropion HCl 150 mg PO QAM 11/30/17 06/22/19 History clonazepam 0.5 mg PO DAILY 11/30/17 06/22/19 History gabapentin 600 mg PO TID 11/30/17 06/22/19 History lisinopril 10 mg PO DAILY 11/30/17 06/22/19 History pantoprazole 40 mg PO DAILY 11/30/17 06/22/19 History sertraline 100 mg PO BID 11/30/17 06/22/19 History tamsulosin [Flomax] 0.4 mg PO QPM 10/05/18 06/22/19 History atorvastatin 10 mg PO HS 05/26/19 06/22/19 History cetirizine 10 mg PO HS PRN 05/26/19 06/22/19 History montelukast 10 mg PO DAILY 05/26/19 06/22/19 History prazosin 5 mg PO HS 05/26/19 06/22/19 History aspirin 81 mg PO BID 42 Days #84 tab 05/30/19 06/22/19 Rx ipratropium-albuterol 3 ml INH Q6H PRN #90 ml 05/30/19 06/22/19 Rx methocarbamol 1,000 mg PO QID PRN #0 tab 05/30/19 06/22/19 Rx hydrocodone 5 mg-acetaminophen 325 1 tab PO Q6H PRN #20 tab 06/12/19 06/22/19 Rx mg tablet meloxicam 15 mg tablet 15 mg PO DAILY #30 tab 06/18/19 06/22/19 Rx sulfamethoxazole 800 1 tab PO BID 7 Days #14 tab 06/18/19 06/22/19 Rx mg-trimethoprim 160 mg tablet doxycycline hyclate 100 mg tablet 100 mg PO BID PRN #14 tab 06/21/19 06/22/19 Rx tramadol 50 mg tablet 50 mg PO Q6H PRN #30 tab 06/21/19 06/22/19 Rx budesonide-formoterol 2 puff INHALATION BID 06/22/19 06/22/19 History trazodone 300 mg PO HS 06/22/19 06/22/19 History Patient History Medical History Asthma (Chronic) BPH (benign prostatic hyperplasia) (Chronic) Chronic bronchitis Closed fracture dislocation of ankle (Acute) DDD (degenerative disc disease) (Acute) Diverticulitis HTN (hypertension) (Chronic) Intractable back pain (Acute) MRSA (methicillin resistant Staphylococcus aureus) (Chronic) negative nasal swab on 06/24/15 and 10/05/18 Obesity VIK on CPAP (Chronic) Noncompliant Prolonged QT interval [id number]=919 EKG 05/25/19 PTSD (post-traumatic stress disorder) (Chronic) do not wake patient by touching, wake patient by saying name Surgical History History of back surgery (Chronic) back surgery x3 at [facility] History of partial colectomy S/P hernia repair Status post ORIF of fracture of ankle 05/26/[address] Farhan DIEZ with sedation. Family History Other Family history non-contributory Social History Preferred Language: Malawian Communication Ability: Effective [employer] Required: No Beliefs That Will Affect Care: None marital status: Current Living Situation: Spouse Feels Safe at Home: Yes Smoking Status: Former smoker Tobacco Type: cigarettes ; Second Hand Exposure: No ; Hx Alcohol Use: Yes Alcohol type: beer Hx Substance Use: No Review of Systems Review of Systems: All systems reviewed & are unremarkable except as noted in HPI & below Physical Exam Constitutional: WD/WN, vitals as above Respiratory: normal respiratory effort, lungs clear to auscultation Cardiovascular: Rate/Rhythm: regular rate and regular rhythm Vessels: femoral pulses present; + posterior tibial pulses abnormal and + dorsalis pedis pulses abnormal Extremities: + abnormal capillary refill (decreased) Gastrointestinal (Abdomen): Inspection/Auscultation: abdomen normal to inspection Percussion/Palpation: abdomen soft; abdomen nontender Musculoskeletal: Extremities: extremities normal to inspection; no cyanosis and no clubbing Skin: + wound (open wound of right ankle treated with a wound vac) Neurologic: normal touch/pain/proprioception and CN's II-XI intact bilaterally Speech / Cognition: normal speech Psychiatric: Orientation: alert and oriented x 3 Results & Data Vital Signs (Past 12 Hours) Vital Signs Temp Pulse Pulse Pulse Pulse Resp BP 06/27/19 11:18 36.5 C 67 18 126/71 06/27/19 10:00 06/27/19 09:24 74 06/27/19 07:14 54 L 06/27/19 07:08 36.6 C 67 18 162/86 H 06/27/19 06:57 67 14 06/27/19 03:22 66 18 06/27/19 03:06 36.5 C 20 L 68 20 162/94 H Pulse Ox 06/27/19 11:18 93 06/27/19 10:00 94 06/27/19 09:24 06/27/19 07:14 06/27/19 07:08 98 06/27/19 06:57 98 06/27/19 03:22 94 06/27/19 03:06 94
--- NOTE | 2019-06-27 13:30 | Surgery Progress Note ---
Date of Service June 27, 2019 Assessment & Plan (1) Open wound of ankle with complication: Debridement was attempted today using a #5 curette to perform non- excisional debridement of skin, subcutaneous tissue, tendon and bone. Due to tissue adherence, minimal debridement was able to be performed. There is minimal granulation at this point. Recommended continuing to use the [place] wound VAC upon discharge to [facility], and while there if possible. He should follow-up Monday at the wound care center with Dr. Pickard, on with me for VAC changes. He is receiving vitamin A per Dr. Arboleda due to current need for steroids. CTA pending today to evaluate perfusion to foot. Subjective Patient seen and examined at bedside with Daisy Stinson, Drs. Arboleda and Mickey. Overall feeling well, does complain of some pain in the right lower leg. Review of Systems Integumentary: as per Subjective / HPI Physical Exam Physical Exam: WD/WN, vitals as above Eyes: PERRL, conjunctivae normal, anicteric sclerae Respiratory: normal respiratory effort; no respiratory distress Musculoskeletal: + surgical drain present (Right ankle) Skin: Medial right ankle with closed incision measuring 6 cm, no erythema, some scant serosanguineous drainage, approx 1 cm area with fibrin noted. Right lateral ankle with 6.5 x 3 x 1.5 cm open wound, with proximal closed incision, total length 9 cm. There is exposed bone at the wound base, appears to have viable periosteum/peritenon. Wound appears clean, about 50% slough noted, no purulent drainage. No peripheral erythema. Psychiatric: A+Ox3, euthymic affect Results & Data Vital Signs (Past 12 Hours) Vital Signs Temp Pulse Pulse Pulse Pulse Resp BP 06/27/19 11:18 97.7 F 67 18 126/71 06/27/19 10:00 06/27/19 09:24 74 06/27/19 07:14 54 L 06/27/19 07:08 97.9 F 67 18 162/86 H 06/27/19 06:57 67 14 06/27/19 03:22 66 18 06/27/19 03:06 97.7 F 20 L 68 20 162/94 H Pulse Ox 06/27/19 11:18 93 06/27/19 10:00 94 06/27/19 09:24 06/27/19 07:14 06/27/19 07:08 98 06/27/19 06:57 98 06/27/19 03:22 94 06/27/19 03:06 94 Laboratory Results cultures positive for Staph Aureus, enterococcus PG Care Time/CCT Total # of Minutes Spent Total Time Spent with Patient: Total time spent is greater than 50% in coordination of care (as documented) at patient's floor/unit and/or counseling patient: Coding Level of Care Code 63869 Subseq Hosp Care Lvl 2 Diagnoses Open wound of ankle with complication S91.001A Encounter type: initial encounter Laterality: right (1) Open wound of ankle with complication Encounter type: initial encounter Laterality: right Qualified Code(s): S91.001A - Unspecified open wound, right ankle, initial encounter
[2019-06-27] MEDS: FLUTICASONE/VILANTEROL 200/25MCG 14 PUFFS/INHALER INH SCH (14:10)
[2019-06-27] MEDS ORDERED: OPTIRAY 320 125ml IV PRN (15:13)
--- NOTE | 2019-06-27 15:48 | CT Scan Report ---
CT angio BI runof w con HISTORY: 74 years-old Male open wound right ankle patient presents with peripheral arterial disease and open wound of the right lower extremity. COMPARISON: CT abdomen and pelvis 10/05/2018, right ankle radiographs 05/26/2019 TECHNIQUE: CTA of the bilateral lower extremities was obtained following the intravenous administration of 120 mL Optiray 320. 3-D coronal and sagittal MIPS were obtained from the axial data set and were submitted for review. All measurements were obtained according to NASCET criteria. Additional 3-D rendering images were generated from a separate workstation. A dose lowering technique was used consistent with the principals of KAMERON. FINDINGS: CTA: Moderate to extensive mixed plaque of the distal abdominal aorta, iliac arteries and lower extremity arteries. The right common femoral, profunda femoris, superficial femoral, popliteal, anterior tibial and posterior tibial and peroneal arteries are patent with three-vessel flow noted to the level of the ankle. No focal high-grade stenosis or occlusion identified. The left common femoral, profunda femoris, superficial femoral, popliteal, anterior tibial, posterior tibial and peroneal arteries are patent with three- vessel flow noted to the level of the ankle. No aneurysm, dissection or high- grade stenosis. CT: Colonic diverticulosis without acute diverticulitis. Mild fecal retention. Postoperative changes are suggestive of partial sigmoidectomy with colocolonic anastomosis. 1.7 x 2.0 cm soft tissue attenuating nodular focus surrounding surgical suture material adjacent to the sigmoid colon on image 51 series 3 appears unchanged from the comparison study and is likely on a postsurgical basis. No bowel obstruction. Postoperative changes of the ventral abdominal wall. RIGHT LOWER EXTREMITY: There is a soft tissue ulceration of the lateral right ankle which measures up to 3.1 cm in AP dimension. Subcutaneous edema with increased enhancement in this distribution is suggestive of synovitis. No drainable fluid collection. There is evidence of prior hardware removal of the lateral malleolus. No definitive bony erosion identified to suggest acute osteomyelitis. The soft tissue wound however does extend to the osseous surface. Subacute nondisplaced oblique fracture involves the distal aspect of the right fibula. Subacute mildly displaced right posterior malleoli or fracture. Subacute comminuted fractures of the inferior aspect medial malleolus. There are a few punctate intra-articular loose bodies of the right tibiotalar joint. Synovial enhancement with small right ankle joint effusion. Scattered foci of air also noted within the joint space. Calcifications are noted along the peroneal tendon sheath. Fluid distention of the medial and lateral tendons of the ankle. LEFT LOWER EXTREMITY: Soft tissues are unremarkable. No acute fracture or dislocation. Multifocal osteoarthritis. IMPRESSION: 1. Moderate to extensive mixed plaque of the distal abdominal aorta, iliac arteries and arteries of the lower extremities. Three-vessel arterial flow is present to the level of the ankles bilaterally. 2. Subacute nondisplaced fractures of the right distal fibula, medial and posterior malleoli as above with recent distal fibular hardware removal. There are a few tiny intra-articular loose bodies within the tibiotalar joint. 3. Large soft tissue ulceration of the right lateral malleolus extends to the level of the distal fibular periosteum. No definitive evidence of acute osteomyelitis at this time. Close follow-up is needed. 4. Cellulitis of the right ankle with small joint effusion and synovial enhancement. Findings may be reactive or represent infectious arthropathy. Air within the joint space may be from direct extension from the soft tissue wound or secondary to gas-forming organism. 5. Tenosynovitis of the right ankle flexor and peroneal tendons, also either reactive or infectious in nature. ACT 112: Negative or not required by law. The above report was generated using voice recognition software. It may contain grammatical, syntax or spelling errors. Electronically signed by: Vitaliy Valladares M.D. 06/27/2019 3:47 PM RAY
[2019-06-27] MEDS: TAMSULOSIN HCL 0.4 MG CAP PO SCH (20:51)
[2019-06-27] MEDS: ATORVASTATIN 10 MG TAB PO SCH (20:51)
[2019-06-27] MEDS: MONTELUKAST SODIUM 10 MG TABLET PO SCH (20:51)
[2019-06-27] MEDS: SENNA 8.6 MG TAB PO SCH ×2 (20:51→20:55)
[2019-06-27] MEDS: PRAZOSIN HCL 1 MG CAP PO SCH (20:51)
[2019-06-27] MEDS: TRAZODONE HCL 100 MG TAB PO SCH (22:05)
[2019-06-27] MEDS ORDERED: Nursing to Pharmacy Communication ONE (22:44)
[2019-06-28] MEDS: TRAMADOL HCL 50 MG TABLET PO PRN ×3 (01:15→17:21)
[2019-06-28] MEDS: OXYCODONE/ACETAMINOPHEN 5mg/325mg TAB PO PRN ×4 (05:40→15:51)
[2019-06-28 05:42] LABS: Basophils # (auto) 0.01 K/uL (0-0.2); Basophils % (auto) 0.1 %; Eosinophils # (auto) 0.07 K/uL (0-0.5); Eosinophils % (auto) 0.5 %; Hematocrit (blood only) 40.2 % (42-52); Hemoglobin 12.9 g/dL (14.0-18.0); Immature Granulocytes % (auto) 4.7 %; Lymphocytes # (auto) 1.13 K/uL (1.2-3.4); Lymphocytes % (auto) 7.5 %; Mean Corpuscular Hemoglobin 26.2 pg (25-34); Mean Corpuscular Hgb Conc 32.1 g/dL (32-36); Mean Corpuscular Volume 81.7 fL (80-100); Mean Platelet Volume 9.6 fL (7.4-10.4); Monocytes # (auto) 1.36 K/uL (0.11-0.59); Monocytes % (auto) 9.1 %; Neutrophils # (auto) 11.75 K/uL (1.4-6.5); Neutrophils % (auto) 78.1 %; Platelet Count 359 K/uL (130-400); RDW Coefficient of Variation 15.6 % (11.5-14.5); RDW Standard Deviation 45.1 fL (36.4-46.3); Red Blood Count 4.92 M/uL (4.7-6.1); White Blood Count 15.02 K/uL (4.8-10.8)
[2019-06-28 06:20] LABS: BUN Creatinine Ratio 25.3 (10-20); Calcium 8.8 mg/dl (8.5-10.1); Creatinine Clr Calc Pharmacy 79.9 ml/min; Est GFR (African American) 99.5; Est GFR (Non-African American) 85.8; Potassium 3.6 mmol/L (3.5-5.1)
--- NOTE | 2019-06-28 07:43 | Surgery Progress Note ---
Date of Service June 28, 2019 Assessment & Plan (1) Open wound of ankle with complication: All arteries patent to both feet with no occlusions or significant narrowings. No vascular intervention needed. Please call if needed. Thank you very much for letting us participate in the care of this patient. Results & Data Vital Signs (Past 12 Hours) Vital Signs Temp Pulse Pulse Resp BP Pulse Ox 06/28/19 07:12 36.4 C L 55 L 18 161/83 H 92 06/28/19 04:22 36.5 C 57 L 19 166/83 H 96 06/28/19 03:05 66 15 94 06/28/19 00:00 58 L 06/27/19 23:32 36.3 C L 57 L 19 151/74 H 93 06/27/19 22:15 63 23 93 06/27/19 20:37 36.7 C 68 20 159/78 H 91 (1) Open wound of ankle with complication Encounter type: initial encounter Laterality: right Qualified Code(s): S91.001A - Unspecified open wound, right ankle, initial encounter
[2019-06-28] MEDS: guaiFENesin 600 MG TABCR PO SCH (08:40)
[2019-06-28] MEDS: DOCUSATE SODIUM 100 MG CAP PO SCH (08:40)
[2019-06-28] MEDS: MULTIVITAMIN TAB PO SCH (08:40)
[2019-06-28] MEDS: predniSONE 20 MG TAB PO SCH (08:41)
[2019-06-28] MEDS: GABAPENTIN 300 MG CAP PO SCH ×2 (08:41→13:36)
[2019-06-28] MEDS: VITAMIN A 25,000 UNIT CAP PO SCH (08:42)
[2019-06-28] MEDS: PANTOprazole 40 MG TAB PO SCH (08:42)
[2019-06-28] MEDS: CHOLECALCIFEROL 1,000 UNITS 25 MCG TAB PO SCH (08:42)
[2019-06-28] MEDS: SERTRALINE HCL 100 MG TABLET PO SCH (08:43)
[2019-06-28] MEDS: BuPROPion XL 150 MG TABCR PO SCH (08:43)
[2019-06-28] MEDS ORDERED: DAPTOMYCIN CONSULT ACTIVE PRN (08:44)
--- NOTE | 2019-06-28 08:46 | Hospitalist Progress Note ---
Date of Service June 28, 2019 Assessment & Plan (1) Severe sepsis: (2) Postoperative wound infection: -This is a patient with ORIF of his right ankle with Dr. Real on 05/26/19 who presented to the ER on 06/22/2019 with presented to the ED with complaints of right ankle pain, swelling, redness, warmth and fevers. Because of sepsis from right ankle wound infection, Dr. Arboleda on 06/23/2019 performed Incision and Drainage Right ankle, removal of hardware, arthrotomy(Right). Patient also had wound vac from this procedure -patient on prn pain medications and scheduled bowel regimen -was initially on Daptomycin and Zosyn -wound cultures growing MSSA with rare specimens of Enterococcus faecalis, blood cultures negative, and Dr. Arteaga from Infectious disease on 06/25/2019 changed antibiotic regimen to Ceftriaxone 2g IV daily, and suggest minimum of 6 weeks IV abx. will need weekly cbc, cmp, esr while on therapy. -has PICC line -activities as per orthopedic service is OOB/NWB RLE(Strict NWB RLE at all times - allowed to be out of bed to chair as tolerated) -Orthopedic service pull off the wound vac on 06/27/2019 -06/27/2019: patient seen by hospitalist when orthopedic team/wound care team at bedside. Orthopedics Dr. Arboleda planning to discharge to patient to [facility] for physical rehabilitation and then subsequent wound care clinic follow up. Patient then had CT angiography of lower extremities. 06/28/2019: White blood cell counts increased to 15K but patient clinically doing well and is afebrile. Dr. Arteaga is adjusting patient's antibiotics with daptomycin today to account for Enterococcus faecalis coverage from previous wound cultures Normal Sinus rhythm on telemetry. Patient on room air and denies any shortness of breath or wheezing to hospitalist medicine physician - no acute pain currently and patient denies other symptoms. Discussed with patient that as per vascular surgeon evaluation of CT angiography of right lower extremities that all arteries patent to both feet with no occlusions or significant narrowings so No vascular intervention needed. Hospitalist medicine following as consult service (3) Acute on chronic respiratory failure with hypoxia: (4) COPD exacerbation: Acute exacerbation of his underlying asthma/COPD -O2 supplementation to keep saturation between 88 to 92% -BiPAP nightly and PRN shortness of breath -because of methylprednisone of 40 mg q12 IV use while inpatient -on short course of prednisone with taper to avoid abrupt discontinuation of respiratory steroids - continue prednisone 40 mg daily for 2 days, 20 mg daily for 2 days then stop (5) Atrial fibrillation and flutter: -no history in the past, likely paroxysmal related to Sepsis and COPD exacerbation. currently in sinus rhythm -echocardiogram preserved Ejection Fraction, on Metoprolol tartrate 12.5mg po BID (6) TARUN (acute kidney injury): -admission 06/21 Creatinine 1.6 -TARUN has been resolved (7) HTN (hypertension): - Lisinopril transitioned from 5 mg to 10 mg daily a of 06/26/2019, continue medication (8) Hyperkalemia: -peak serum potassium to date was 5.5 and 5.6 on to 06/22 -serum potassium currently under 5, as 3.6 (9) BPH (benign prostatic hyperplasia): -Continue tamsulosin and prazosin (10) VIK (obstructive sleep apnea): - Noncompliant with CPAP - Recommend outpatient follow-up with sleep or pulmonary medicine for follow up for Obstructive Sleep Apnea Admission and Anticipated Discharge Date Admission Date: June 22, 2019 Subjective White blood cell counts increased to 15K but patient clinically doing well and is afebrile. Dr. Arteaga is adjusting patient's antibiotics with daptomycin today to account for Enterococcus faecalis coverage from previous wound cultures Normal Sinus rhythm on telemetry. Patient on room air and denies any shortness of breath or wheezing to hospitalist medicine physician - no acute pain currently and patient denies other symptoms. Discussed with patient that as per vascular surgeon evaluation of CT angiography of right lower extremities that all arteries patent to both feet with no occlusions or significant narrowings so No vascular intervention needed. Review of Systems Review of Systems: All systems reviewed & are unremarkable except as noted in Subjective Physical Exam Constitutional: + obese Eyes: PERRL, conjunctivae normal, anicteric sclerae EOM intact bilaterally ENMT: external ear and nose normal, oropharynx normal Neck: normal visual inspection Respiratory: normal respiratory effort Cardiovascular: Rate/Rhythm: regular rate Gastrointestinal (Abdomen): normal bowel sounds, soft, nontender, no hepatosplenomegaly Musculoskeletal: Head/Neck/Chest: normocephalic Neurologic: PERRL, EOMI, accommodation nl, no face palsy, no dysarthria Psychiatric: A+Ox3, euthymic affect Results & Data Results & Data ([facility]) Vital Signs (Past 12 Hours) Vital Signs Temp Pulse Pulse Resp BP Pulse Ox 06/28/19 07:12 36.4 C L 55 L 18 161/83 H 92 06/28/19 04:22 36.5 C 57 L 19 166/83 H 96 06/28/19 03:05 66 15 94 06/28/19 00:00 58 L 06/27/19 23:32 36.3 C L 57 L 19 151/74 H 93 06/27/19 22:15 63 23 93
[2019-06-28] MEDS: METOPROLOL TARTRATE 25 MG TAB PO SCH (08:47)
[2019-06-28] MEDS: lisinopriL 10 MG TAB PO SCH (08:47)
[2019-06-28] MEDS: ENOXAPARIN INJ 40 MG/0.4 ML SYR SQ SCH (08:48)
[2019-06-28] MEDS: INSULIN ASPART 100 UNITS/ML 3 ML PEN SC SCH ×2 (08:49→13:02)
[2019-06-28] MEDS: INSULIN GLARGINE SOLOSTAR 100 UNITS/ML 3 ML PEN SQ SCH (08:49)
--- NOTE | 2019-06-28 08:50 | Infectious Disease Progress Nt ---
Date of Service June 28, 2019 Assessment & Plan (1) Postoperative wound infection: cultures growing MSSA and now E. faecalis as well. blood cultures negative, will change from rocephin 2g IV daily to Dapto to cover for both pathogents. would suggest min 6 weeks IV abx. will need weekly cbc, cmp, esr, cpk while on therapy. would also suggest holding statin if able while on abx. Pt may need alternate ID provider as I will be leaving prior to completion of his abx therapy. Admission and Anticipated Discharge Date Admission Date: June 22, 2019 Subjective OR cultures from 06/22 now growing E. faecalis in addition to MSSA. s/p vascular eval, all vessels patent no additonal OR at this time. afebrile. wbc 15, on steroids. Results & Data ([facility]) Vital Signs (Past 12 Hours) Vital Signs Temp Pulse Pulse Resp BP Pulse Ox 06/28/19 08:46 70 129/72 06/28/19 07:12 36.4 C L 55 L 18 161/83 H 92 06/28/19 04:22 36.5 C 57 L 19 166/83 H 96 06/28/19 03:05 66 15 94 06/28/19 00:00 58 L 06/27/19 23:32 36.3 C L 57 L 19 151/74 H 93 06/27/19 22:15 63 23 93 Laboratory Results Microbiology 06/23/19 14:30 Ankle,Right Gram Stain - Final 06/23/19 14:30 Ankle,Right Aerobic and Anaerobic Culture - Preliminary Staphylococcus aureus Enterococcus faecalis Finegoldia magna 06/23/19 14:30 Ankle,Right Gram Stain - Final 06/23/19 14:30 Ankle,Right Aerobic and Anaerobic Culture - Preliminary Staphylococcus aureus Enterococcus faecalis Finegoldia magna 06/22/19 11:24 Blood Aerobic Blood Culture - Final No growth in Aerobic bottle after 5 days. 06/22/19 11:24 Blood Anaerobic Blood Culture - Final No growth in Anaerobic bottle after 5 days. 06/22/19 11:24 Blood Aerobic Blood Culture - Final No growth in Aerobic bottle after 5 days. 06/22/19 11:24 Blood Anaerobic Blood Culture - Final 06/23/19 14:30 Ankle,Right Gram Stain - Final 06/23/19 14:30 Ankle,Right Aerobic and Anaerobic Culture - Preliminary Staphylococcus aureus Enterococcus faecalis 06/23/19 14:30 Ankle,Right Gram Stain - Final 06/23/19 14:30 Ankle,Right Aerobic and Anaerobic Culture - Preliminary Staphylococcus aureus Streptococcus species 06/24/19 21:48 Sputum, Expectorated Gram Stain - Final 06/24/19 21:48 Sputum, Expectorated Sputum Culture - Final PG Care Time/CCT Total # of Minutes Spent Total Time Spent with Patient: Total time spent is greater than 50% in coordination of care (as documented) at patient's floor/unit and/or counseling patient: Coding Level of Care Code 10319 Subseq Hosp Care Lvl 1 Diagnoses Postoperative wound infection T81.49XA
[2019-06-28] MEDS ORDERED: DAPTOmycin 450 MG in SYRINGE 0 ML IV SCH (09:15)
--- NOTE | 2019-06-28 10:02 | Orthopedic Progress Note ---
Date of Service June 28, 2019 Assessment & Plan (1) Postoperative wound infection: POD # 5 - s/p I&D, hardware removal right ankle. Continue OOB/NWB RLE with Cam Walker boot and walker assitance Continue Wound vac PICC in place right arm. Continued regular heart healthy diet. Strict NWB RLE at all times - allowed to be out of bed to chair as tolerated PT/OT as ordered Discharge to [facility] today. Appreciate ID, hospitalist, plastics, vascular and wound care nurse assistance IV antibiotics changed by ID from Rocephin to Dapto for 6 wks. Cultures show methacillin sensitive staph. aureus and E. faecalis Ice and elevated as needed for pain/swelling. Continue immobilization with boot right lower extremity. Continue Lovenox 40 mg daily x 14 days for DVT prophylaxis. Discusses findings with Dr. Arboleda. Patient will follow up with Dr. Real in 1 week and with the wound clinic on Monday07/01/19. All questions answered today. Admission and Anticipated Discharge Date Admission Date: June 22, 2019 Subjective This 74 yo M is 5 days s/p Right ankle I&D, removal of hardware and arthrotomy following an ORIF of the ankle performed recently by Dr. Real. Patient states that he is doing well and is ready to be discharged to [facility]. He states that his biggest issue is the discomfort that he has trying to sleep with the CAM boot in place. At this time he denies CP, SOB, nausea, vomiting, fever, chills, sweats or lethargy. Review of Systems Review of Systems: All systems reviewed & are unremarkable except as noted in Subjective Physical Exam Physical Exam: Right ankle/LE; boot and outer webril dressing were removed. Both wound vacs are in place with Irrigating one covering distal fibula. Able to actively dorsi/plantar flex foot. Toes mobile. Able to perform SLRT and flex knee to 80 degrees. Calf soft with notable atrophy. Quad strength 4/5. NV intact. Periph pulses difficult to palpate. Cap refill ~2 seconds. Results & Data ([facility]) Vital Signs (Past 12 Hours) Vital Signs Temp Pulse Pulse Resp BP Pulse Ox 06/28/19 08:46 70 129/72 06/28/19 07:12 36.4 C L 55 L 18 161/83 H 92 06/28/19 04:22 36.5 C 57 L 19 166/83 H 96 06/28/19 03:05 66 15 94 06/28/19 00:00 58 L 06/27/19 23:32 36.3 C L 57 L 19 151/74 H 93 06/27/19 22:15 63 23 93 Laboratory Results 06/28/19 06/28/19 06/28/19 Range/Units 07:26 05:31 05:31 WBC (4.8-10.8) K/uL RBC (4.7-6.1) M/uL Hgb (14.0-18.0) g/dL Hct (42-52) % MCV (80-100) fL MCH (25-34) pg MCHC (32-36) g/dL RDW Std Deviation (36.4-46.3) fL RDW Coeff of Hector (11.5-14.5) % Plt Count (130-400) K/uL MPV (7.4-10.4) fL Immature Gran % (Auto) % Neut % (Auto) % Lymph % (Auto) % F[place]ardo % (Auto) % Eos % (Auto) % Baso % (Auto) % Immature Gran # (Auto) (0.00-0.02) K/uL Neut # (Auto) (1.4-6.5) K/uL Lymph # (Auto) (1.2-3.4) K/uL Fajardo # (Auto) (0.11-0.59) K/uL Eos # (Auto) (0-0.5) K/uL Baso # (Auto) (0-0.2) K/uL ESR 41 H (0-14) mm/hr Sodium 138 (136-145) mmol/L Potassium 3.6 D (3.5-5.1) mmol/L Chloride 102 (98-107) mmol/L Carbon Dioxide 32 (21-32) mmol/L Anion Gap 5.0 (3-11) BUN 22 H (7-18) mg/dl Creatinine 0.88 (0.6-1.4) mg/dl Est Cr Clr Drug Dosing 79.9 ml/min Est GFR ( Amer) 99.5 Est GFR (Non-Af Amer) 85.8 BUN/Creatinine Ratio 25.3 H (10-20) Glucose 97 (70-99) mg/dl POC Glucose 91 (70-99) mg/dl Calcium 8.8 (8.5-10.1) mg/dl 06/28/19 06/27/19 06/27/19 Range/Units 05:31 20:19 16:45 WBC 15.02 H (4.8-10.8) K/uL RBC 4.92 (4.7-6.1) M/uL Hgb 12.9 L (14.0-18.0) g/dL Hct 40.2 L (42-52) % MCV 81.7 (80-100) fL MCH 26.2 (25-34) pg MCHC 32.1 (32-36) g/dL RDW Std Deviation 45.1 (36.4-46.3) fL RDW Coeff of Hector 15.6 H (11.5-14.5) % Plt Count 359 (130-400) K/uL MPV 9.6 (7.4-10.4) fL Immature Gran % (Auto) 4.7 % Neut % (Auto) 78.1 % Lymph % (Auto) 7.5 % Fajardo % (Auto) 9.1 % Eos % (Auto) 0.5 % Baso % (Auto) 0.1 % Immature Gran # (Auto) 0.70 H (0.00-0.02) K/uL Neut # (Auto) 11.75 H (1.4-6.5) K/uL Lymph # (Auto) 1.13 L (1.2-3.4) K/uL Fajardo # (Auto) 1.36 H (0.11-0.59) K/uL Eos # (Auto) 0.07 (0-0.5) K/uL Baso # (Auto) 0.01 (0-0.2) K/uL ESR (0-14) mm/hr Sodium (136-145) mmol/L Potassium (3.5-5.1) mmol/L Chloride (98-107) mmol/L Carbon Dioxide (21-32) mmol/L Anion Gap (3-11) BUN (7-18) mg/dl Creatinine (0.6-1.4) mg/dl Est Cr Clr Drug Dosing ml/min Est GFR ( Amer) Est GFR (Non-Af Amer) BUN/Creatinine Ratio (10-20) Glucose (70-99) mg/dl POC Glucose 121 H 119 H (70-99) mg/dl Calcium (8.5-10.1) mg/dl 06/27/19 Range/Units 11:22 WBC (4.8-10.8) K/uL RBC (4.7-6.1) M/uL Hgb (14.0-18.0) g/dL Hct (42-52) % MCV (80-100) fL MCH (25-34) pg MCHC (32-36) g/dL RDW Std Deviation (36.4-46.3) fL RDW Coeff of Hector (11.5-14.5) % Plt Count (130-400) K/uL MPV (7.4-10.4) fL Immature Gran % (Auto) % Neut % (Auto) % Lymph % (Auto) % Fajardo % (Auto) % Eos % (Auto) % Baso % (Auto) % Immature Gran # (Auto) (0.00-0.02) K/uL Neut # (Auto) (1.4-6.5) K/uL Lymph # (Auto) (1.2-3.4) K/uL Fajardo # (Auto) (0.11-0.59) K/uL Eos # (Auto) (0-0.5) K/uL Baso # (Auto) (0-0.2) K/uL ESR (0-14) mm/hr Sodium (136-145) mmol/L Potassium (3.5-5.1) mmol/L Chloride (98-107) mmol/L Carbon Dioxide (21-32) mmol/L Anion Gap (3-11) BUN (7-18) mg/dl Creatinine (0.6-1.4) mg/dl Est Cr Clr Drug Dosing ml/min Est GFR ( Amer) Est GFR (Non-Af Amer) BUN/Creatinine Ratio (10-20) Glucose (70-99) mg/dl POC Glucose 128 H (70-99) mg/dl Calcium (8.5-10.1) mg/dl
[2019-06-28] MEDS ORDERED: METOPROLOL TARTRATE 25 MG TAB PO STA (10:37)
--- NOTE | 2019-06-28 10:38 | Discharge Summary ---
Date of Service June 28, 2019 Admission HPI Per Admitting Provider Patient is a 74 year old male who presented to the ED today with complaints of right ankle pain, swelling, redness, warmth and fevers. States that he's had worsening pain and swelling right ankle for the past few days, saw Dr. Real yesterday in the offie, was placed on antibitics and advised to follow up on Monday for recheck. He called an ambulance today due to some fevers and according to his he's had some changes in his mental status and "talking to people that weren't there". She had called the answering service this morning and stated that she was sending him to the ED. He underwent an ORIF of his right ankle with Dr. Real on 05/26/19. States that he's been nonweightbearing on his right leg since surgery but has getting around his house by holding on to things. He states that he has pain in his ankle constantly. Has history of MRSA and C-Diff. His is not present with him today. states that he does have some tingling in his toes since surgery. Denies have DM. Denies any new injury. Discharge Data Consultations 06/22/19 10:40 Consult Internal Medicine Routine 06/23/19 06:39 Consult Cardiology Routine 06/23/19 16:02 Consult Case Management - Discharge Planning Routine Consult Infectious Diseases Routine Consult Plastic Surgery Routine 06/25/19 10:50 Consult Pulmonology Routine 06/27/19 08:33 Consult Vascular Surgery Routine Procedures Performed Operation Date: 06/23/19 12:30 Actual Procedures p Incision and Drainage Right ankle,(Right) - Owen Arboleda MD s Arthrotomy(Right) - Owen Arboleda MD s Removal of Hardware(Right) - Owen Arboleda MD Hospital Course (1) Postoperative wound infection: Patient presented to the emergency room on 06/22/2019 with complaints of pain, swelling, drainage of right ankle wound. His had called Dr. Arboleda prior to him coming to the ED. She stated that he was having fevers, chills and hallucinations, she was worried about him and was calling an a mbulance to bring him to the [facility] Emergency Room. He was being followed by Dr. Real as an outpatient, but wasn't responding to conservative treatment. While in the ED, he was noted to be slightly confused regarding his condition, as well as tachycardic and hypotensive. He was admitted by Dr. Arboleda on 06/22/19 for acute sepsis and post operative infection right ankle. Surgical intervention was recommended for Irrigation, debridement and probably hardware removal from right ankle for treatment of his ankle infection. He understood and agreed, risks/complications of surgery were discussed with the patient and informed consent obtained, his was updated with the plan as well. Prior to the operating room, medical clearance was requested. He was seen by the [facility] and was found to have severe sepsis. Blood cultures were obtained as well as CBC, ESR, CRP, lactate and CMP. WBC, ESR and CRP were significantly elevated as well as a very high lactate and elevated BUN/CR. His surgery was postponed until 06/23/19 due to the sepsis and to improved his tachycardia and hypotension. He also upon admission had an episode of acute atrial fibrillation that converted to spontaneous rhythm without intervention. He required pre-op cardiac clearance due to this new onset a-fib. Echocardiogram and cardiac clearance performed, he was cleared for surgery and underwent an Irrigation, debridement and hardware removal with Dr. Arboleda on 06/23/2019. Surgery was performed with spinal anesthesia and peripheral nerve block. He was given IV ancef for surgical prophylaxis as well as his schedule Zosyn. He tolerated the procedure well without intra-operative or post operative complications. Intra-operative cultures were taken from the medial incision, ankle joint and lateral incision and hardware. On Monday his Vitamin D level was checked and was noted to be low consistent with Vitamin D deficiency. He was placed on ergocalciferol 50,000 IU weekly and Vitamin D 1000 IU daily for replenishment. Cultures were followed during his inpatient stay and grew out Methacillin susceptible staphylococcus aureus. His IV antibiotics were changed to Rocephin 2gm IV daily by infectious disease. During his stay he had consults for Plastic surgery, Infectious disease for management of antibiotics, hospitalists for medical management, cardiology, pulmonology, vascular surgery and wound care nurse. On Monday06/24/19 an irrigating wound vac was placed to his right ankle by the wound care nurse. Plastic surgery consult agreed with wound vac placement. Wound vac continued during his inpatient stay. Percocet and tramadol were used for pain control during his inpatient stay. He was given a heart healthy diet and tolerated po food during his inpatient stay. His regular home medications were continued as appropriate. He was seen and evaluated by Case management and a referral was placed to [facility]. His insurance authorized discharge to [facility] on 06/27/19. He was allowed out of bed, strict non weight bearing right lower extremity at all times. Encouraged ice and elevation as needed for pain/swelling. Posterior and U-stirrup splint applied post operatively. Wound vac was changed on Monday06/28/19 and High tide cam boot applied. on 06/27/19 a vascular consult was placed, he was evaluated and a CTA was performed, recommended conservative treatment. Nutrition consult was also placed on 06/27/19. On 06/28/19 his cultures became positive for Enterococcus facealis and his IV antibiotic was changed from IV rocephin to IV Daptomycin for coverage of both E. Facealis and MSSA. He was also placed on Lovenox 40 mg daily for DVT prophylaxis, started Monday06/24/19. This will be continued for approximately 2 weeks after surgery. He was also placed on SCD's and encouraged OOB to chair. He was also started on Vitamin A 25,000 IU daily x 7 days for wound healing. Due to the IV Dapto his atorvastatin was held. He was given discharge instructions as per EMR. He will need a weekly CBC, CMP, ESR and CPK while on the Daptomycin. Instructions were provided for follow up with PCP, Dr. eRal, Infectious Disease, wound care clinic - Dr. Pickard, Pulmonology. He will need PT/OT while at [facility]. Wound vac will remain in place at all times. On 06/28/2019 he was discharged to [facility] in Stable condition. Discharge Instructions Non weight bearing right lower extremity at all times. Elevate right lower extremity above heart to relieve pain/swelling. Keep wound vac in place, change as instructed. Use walker, wheelchair, knee scooter to assist with ambulation. Wear boot when out of bed Wound vac changes by nursing as instructed oxycodone, tramadol, tylenol as prescribed for pain Daptomycin 450mg IV daily x 6 weeks or as instructed by Infectious Disease Follow up with Infectious disease, your primary care provider, cardiology and pulmonology as instructed. Follow up with Dr. Real in 7-10 days, call for appointment. Take Vitamin D 50,000 IU weekly on Mondays x 6 weeks - script sent to pharmacy Take Vitamin A 25,000 IU daily x 7 days - script sent to pharmacy; take until prescription completed Lovenox 40 mg daily x 14 days after surgery. Continue Lovenox until completed. Get your labwork done weekly as instructed and while on antibiotics - script provided at discharge. - will need cbc, cmp, esr, cpk weekly PT/OT as instructed. Dr. Arteaga from Infectious disease on 06/28/2019 changed antibiotic regimen to Daptomycin 450 mg IV daily to account for Enterococcus faecalis coverage from previous wound cultures besides the main pathogan of MSSA (methicillin- susceptible Staphylococcus aureus) , and suggest minimum of 6 weeks IV abx. Will need weekly CBC, CMP, ESR, creatine kinase while on longterm antibiotictherapy. (hospitalist stopped atorvastatin to potential problems with creatinine kinase while on Daptomycin) prednisone 40 mg daily for 2 days, 20 mg daily for 2 days then stop Recommend outpatient follow-up with sleep or pulmonary medicine for follow up for Obstructive Sleep Apnea
--- NOTE | 2019-06-28 10:52 | History & Physical Bridge Note ---
Date of Service June 28, 2019 History & Physical Bridge Note Patient reported episode of chest discomfort that lasted 5 seconds and associated with cough. Telemetry monitoring reported to nurse of possible lead changes. Nurse asked hospitalist to assess. Patient breathing on room air and no acute distress when seen by medical doctor. Speaking in full sentences. Cardiology physician was also asked to evaluate the telemetry lead. 12 lead EKG was performed. On my review as hospitalist, the EKG appeared to be normal sinus rhythm and no obvious arrhythmia seen
--- NOTE | 2019-06-28 10:56 | Hospitalist Progress Note ---
Date of Service June 28, 2019 Assessment & Plan Admission and Anticipated Discharge Date Admission Date: June 22, 2019 Subjective Medical doctor was asked by nurse to evaluate the patient. She reports that there were telemetry lead changes. Patient also had chest pain. Medical doctor asked for nurse to do 12 lead EKG and to notify Cardiology physician. Cardiology physician was reviewing the school lunch monitor with the telemetry clerks. In my exam of the patient, he breathes comfortably on room air. He reported that his chest pain lasted 5 seconds and associated with cough. He denied any chest pain at time of exam. Patient had 12 lead EKG and this is normal sinus rhythm. Results & Data Results & Data ([facility]) Vital Signs (Past 12 Hours) Vital Signs Temp Pulse Pulse Resp BP Pulse Ox 06/28/19 08:46 70 129/72 06/28/19 07:12 36.4 C L 55 L 18 161/83 H 92 06/28/19 04:22 36.5 C 57 L 19 166/83 H 96 06/28/19 03:05 66 15 94 06/28/19 00:00 58 L 06/27/19 23:32 36.3 C L 57 L 19 151/74 H 93
--- NOTE | 2019-06-28 11:53 | Pulmonology Progress Note ---
Date of Service June 28, 2019 Assessment & Plan (1) Acute and chronic respiratory failure: --Acute exacerbation of his underlying asthma/COPD Continue with steroids, inhaled bronchodilators, mucolytic. O2 supplementation to keep saturation between 88 to 92% BiPAP nightly and PRN shortness of breath --Obstructive sleep apnea Patient has been using his CPAP regularly now Importance of compliance with CPAP explained to the patient in depth. --History of tobacco use Approximately 10-wgyd-bjea smoking history Quit greater than 30 years ago --Morbid obesity advised to lose weight with diet and exercise Plan: Patient clinically doing better. Shortness of breath is improved. Cough is decreased in intensity. Patient is on tapering dose of steroids. On discharge continue with Labe/ICS and lama inhaler on a daily basis. No further recommendation from pulmonary perspective. Will sign off. Recall if needed. Please note the above document was generated using voice recognition software. It may contain grammatical, syntax or spelling errors. (2) VIK (obstructive sleep apnea): (3) Chronic bronchitis: (4) Obesity: Admission and Anticipated Discharge Date Admission Date: June 22, 2019 Subjective Patient seen and examined at bedside. no adverse events overnight. Patient complaining of pain in the right lower extremity today. Denies any shortness of breath, no chest pain, no headache, no blurry vision, no nausea or vomiting. Cough is decreased in intensity. Denies any dysuria, no diarrhea. Good appetite. Compliant with CPAP overnight. Review of Systems Review of Systems: All systems reviewed & are unremarkable except as noted in HPI & below Physical Exam Physical Exam: Constitutional: No acute distress HEENT: EOMI, PERRLA, thick neck, Mallampati 4, hoarse voice Respiratory system: Decreased air entry bilaterally, no crackles, minimal expiratory wheeze bilaterally CVS: S1-S2 positive, no murmurs or gallops Abdomen: Soft, nontender, nondistended, positive bowel sounds x4 Extremities: +2 pulses bilaterally radialis/+1 dorsalis pedis, no cyanosis, no edema, right lower extremity in cast Neuro: Awake alert oriented x3 Psych: Normal mood and affect G/U: No Witt Skin: no rashes, warm and dry Lymphatic: no cervical or axillary lymphadenopathy Results & Data Results & Data ([facility]) Vital Signs (Past 12 Hours) .Vital Signs Temp Pulse Pulse Resp BP Pulse Ox 06/28/19 10:55 72 133/76 06/28/19 08:46 70 129/72 06/28/19 07:12 36.4 C L 55 L 18 161/83 H 92 06/28/19 04:22 36.5 C 57 L 19 166/83 H 96 06/28/19 03:05 66 15 94 06/28/19 00:00 58 L 06/28/19 05:31 06/28/19 05:31 PG Care Time/CCT Total # of Minutes Spent Total Time Spent with Patient: Total time spent is greater than 50% in coordination of care (as documented) at patient's floor/unit and/or counseling patient: Coding Level of Care Code 53868 Subseq Hosp Care Lvl 2 Diagnoses Acute and chronic respiratory failure J96.20 VIK (obstructive sleep apnea) G47.33 Chronic bronchitis J42 Obesity E66.9
--- NOTE | 2019-06-28 12:12 | Cardiology Progress Note ---
Date of Service June 28, 2019 Assessment & Plan (1) Atrial tachycardia: (2) Paroxysmal atrial fibrillation: (3) HTN (hypertension): (4) Postoperative wound infection: (5) Asthma: Titrate metoprolol to 25 mg twice daily. 12.5 mg metoprolol x1 now. Add low-dose aspirin, 81 mg daily. Continue lisinopril and atorvastatin. Outpatient pharmacologic stress testing when infectious/orthopedic issues have resolved. Subjective Patient seen and examined at the bedside. Brief kiarra of paroxysmal atrial tachycardia recorded on telemetry this morning. Patient reports a brief (less than 10 seconds) episode of chest tightness which seem to correlate with dysrhythmia. He received a.m. dose of metoprolol. No recurrent atrial fibrillation. Right lower extremity pain controlled. He is participating in physical therapy. Offers no other concerns/complaints this time. Review of Systems Review of Systems: All systems reviewed & are unremarkable except as noted in HPI & below Physical Exam Constitutional: well developed and + obese Respiratory: Auscultation: + wheezes (Bilateral expiratory); no crackles, no rales and no rhonchi Cardiovascular: Rate/Rhythm: regular rate and regular rhythm Heart Sounds: normal S1 and normal S2; no murmur and no cardiac rub Vessels: no JVD Extremities: no edema Gastrointestinal (Abdomen): Inspection/Auscultation: normal bowel sounds; abdomen not distended Percussion/Palpation: abdomen soft; abdomen nontender, no guarding and abdomen not rigid Musculoskeletal: Extremities: strength 5/5 throughout Skin: + wound (Right lower extremity. Dressing clean, dry, intact) Neurologic: moves all extremities; no focal motor deficits Speech / Cognition: normal speech Psychiatric: A+Ox3, euthymic affect Results & Data Vital Signs (Past 12 Hours) Vital Signs Temp Pulse Pulse Resp BP Pulse Ox 06/28/19 10:55 72 133/76 06/28/19 08:46 70 129/72 06/28/19 07:12 36.4 C L 55 L 18 161/83 H 92 06/28/19 04:22 36.5 C 57 L 19 166/83 H 96 06/28/19 03:05 66 15 94 (1) HTN (hypertension) Hypertension type: essential hypertension Qualified Code(s): I10 - Essential (primary) hypertension (2) Asthma Asthma severity: unspecified severity Asthma persistence: unspecified Asthma complication type: unspecified Qualified Code(s): J45.909 - Unspecified asthma, uncomplicated
[2019-06-28] MEDS ORDERED: ASPIRIN 81 MG CHEW PO SCH (12:15)
[2019-06-28] MEDS: FLUTICASONE/VILANTEROL 200/25MCG 14 PUFFS/INHALER INH SCH (14:44)
--- NOTE | 2019-06-28 15:34 | Electrocardiogram Report ---
Test Reason : Blood Pressure : / mmHG Vent. Rate : 071 BPM Atrial Rate : 071 BPM P-R Int : 158 ms QRS Dur : 076 ms QT Int : 426 ms P-R-T Axes : -18 022 037 degrees QTc Int : 462 ms Normal sinus rhythm Normal ECG When compared with ECG of 24-JUN-2019 09:15, No significant change was found Confirmed by Fernie Quiroga ([id number]) on 06/28/2019 3:34:19 PM Referred By: REFERRED SELF Confirmed By:Fernie Quiroga
[2019-06-28] MEDS ORDERED: METOPROLOL TARTRATE 25 MG TAB PO SCH (21:00)
== END 2019-06-28 18:02 | DRG 853 ==
LOC: ED 09:53 → 2S 10:36 → 2N 06-24 22:24

== ENCOUNTER 2020-06-08 12:29 | Inpatient (IN) ==
[2020-06-08 13:08] LABS: Base Excess VBG 1.8 mEq/L; HCO3 VBG 28 mmol/L; PCO2 VBG 52 mmHg (38-50); PO2 VBG 29 mmHg; pH VBG 7.35 (7.36-7.41)
[2020-06-08 13:10] LABS: Oxygen Saturation VBG < 60.0 %
[2020-06-08 13:15] LABS: iSTAT Creatinine 1.6 mg/dl (0.6-1.3); iSTAT Ionized Calcium 1.27 mmol/l (1.12-1.32); iSTAT Potassium 4.1 mmol/L (3.3-5.0)
[2020-06-08 13:27] LABS: INR 1.2 (0.9-1.1); Partial Thromboplastin Ratio 1.4; Partial Thromboplastin Time 36.6 Seconds (21.0-31.0); Prothrombin Time 12.4 Seconds (9.0-12.0)
--- NOTE | 2020-06-08 13:29 | Emergency Department Note ---
Impression & Plan Hallucinations, Acute alteration in mental status, Acute respiratory acidosis ED Provider Note NAME: EDWARD RAMIREZ AGE: 75 SEX: M : 1945 ARRIVES VIA: Ambulance INFORMANT: Patient, the patient's significant other ED PROVIDER(S): Fernie Colin DO CHIEF COMPLAINT: Weakness HPI: The patient is a 75-year-old male who presented to the emergency department by ambulance with his significant other for an evaluation of generalized weakness and confusion. The patient has had episodes of confusion and hallucinating over the course the last few days. The patient has had multiple admissions to [facility]. He was admitted to the [facility] in [place] as well as the [facility] in [place] for [facility]. The patient had a left lower extremity amputation recently. The patient denies having any fever. He has no headache. Himself he states he has had generalized weakness as well as shortness of breath with any exertion. He denies having any diarrhea or dysuria. The patient has been eating and drinking as normally. He states he has been compliant with all of his outpatient medications. He was not seen by his primary care physician today for the symptoms. Otherwise he states he has been compliant with all of his medications including his pain medication he was started on after surgery. ROS: See above HPI for pertinent positives & negatives. A total of 10 systems reviewed and were otherwise negative. PAST MEDICAL HISTORY: See Below PAST SURGICAL HISTORY: See Below FAMILY HISTORY: See Below SOCIAL HISTORY: See Below HOME MEDICATIONS: See Below ALLERGIES: See Below VITALS: See Below PHYSICAL EXAMINATION: GENERAL: The patient is awake and alert. The patient is comfortable appearing. EYES: The conjunctivae are clear. The pupils are round and reactive. EARS, NOSE, MOUTH AND THROAT: The nose is without any evidence of any deformity. Mucous membranes are dry. NECK: The neck is nontender and supple. RESPIRATORY: Normal respiratory effort is noted there is no evidence of wheezing rhonchi or rales CARDIOVASCULAR: Regular rate and rhythm noted there no murmurs rubs or gallops normal S1 normal S2. GASTROINTESTINAL: The abdomen is soft. Abdomen is nontender. MUSCULOSKELETAL/EXTREMITIES: Bilateral lower extremity amputations were noted. The wound dressing was noted on the left lower extremity. It was clean. SKIN: There is no obvious evidence of any rash. NEUROLOGIC: The patient is slow to answer questions. He does not answer appropriately. The patient is oriented to person place and situation. MEDICAL DECISION MAKING: The patient is a 75-year-old male who presented to the emergency department for altered mental status. The patient was recently an inpatient for left knee below the knee amputation. The patient is a history of an undiagnosed leukemia and is noted to have elevated white blood cell count as well as elevated platelet count. This is still being worked up through his primary care physician. The patient did not have any fever. I discussed the patient's laboratory and radiographic studies with him and his . I also discussed his case with the on-call [facility] hospitalist. They have agreed to evaluate the patient in the emergency department for further management and disposition. Triage Nursing notes reviewed. Prior medical records reviewed Vital Signs: reviewed and remarkable for elevated blood pressure. Differential diagnosis: Infection, hypoglycemia, electrolyte abnormalities, overdose, toxicologic, cardiac sources, intracerebral event, neurologic, trauma, as well as other path ologies. ER treatment provided: See below Diagnostics interpreted by me: ECG: EKG was obtained in the emergency department. My interpretation is sinus rhythm at 73 bpm. Ectopy was noted. There is no acute ST segment abnormalities noted. This was compared to a tracing from June 272019. The ectopy is new compared the previous tracing. Otherwise no significant changes were noted. Cardiac Monitoring: An order was placed for continuous cardiac monitoring. The monitor shows a rate of 80 beats per with sinus rhythm. Laboratory studies: As stated above and show below. Imaging studies: See below Consultation(s): 1615: I discussed this case with Dr. Harding. He will evaluate the patient in the emergency department for further management and disposition. Past Med/Surg History Medical History (Updated 06/08/20 @ 18:04 by Fernie Colin DO) Asthma BPH (benign prostatic hyperplasia) Chronic bronchitis Closed fracture dislocation of ankle DDD (degenerative disc disease) Diverticulitis HTN (hypertension) Intractable back pain MRSA (methicillin resistant Staphylococcus aureus) negative nasal swab on 06/24/15 and 10/05/18 Obesity VIK on CPAP Noncompliant Prolonged QT interval TYz=112 EKG 05/25/19 PTSD (post-traumatic stress disorder) do not wake patient by touching, wake patient by saying name Surgical History History of back surgery back surgery x3 at [facility] History of partial colectomy S/P hernia repair Status post ORIF of fracture of ankle 05/26/[address] Real SAB with sedation. Family History Other Family history non-contributory Social History Smoking Status: Former smoker Tobacco Type: Smokeless Tobacco (Dip or Chew) Second Hand Exposure: No; Hx Alcohol Use: Yes Alcohol type: beer Hx Substance Use: No Preferred Language: Venezuelan Communication Ability: Effective Manager Process Improvement Required: No Beliefs That Will Affect Care: None marital status: Current Living Situation: Spouse Feels Safe at Home: Yes Assistive Devices: Walker Allergies Allergies Allergy/AdvReac Type Severity Reaction Status Date / Time ibuprofen Allergy Intermediate HIVES Verified 06/08/20 14:55 Home Meds Home Medications Medication Instructions Recorded Confirmed Spiriva with HandiHaler 1 cap INHALATION DAILY PRN 11/30/17 06/08/20 pantoprazole 40 mg PO DAILY 11/30/17 06/08/20 sertraline 100 mg PO BID 11/30/17 06/08/20 tamsulosin [Flomax] 0.4 mg PO QPM 10/05/18 06/08/20 montelukast 10 mg PO DAILY 05/26/19 06/08/20 prazosin 5 mg PO HS 05/26/19 06/08/20 budesonide-formoterol 2 puff INHALATION BID 06/22/19 06/08/20 trazodone 150 mg PO HS 06/22/19 06/08/20 albuterol 90 mcg INHALATION Q4H PRN 06/08/20 06/08/20 apixaban [Eliquis] 5 mg PO BID 06/08/20 06/08/20 ascorbic acid (vitamin C) 500 mg PO DAILY 06/08/20 06/08/20 aspirin 81 mg PO DAILY 06/08/20 06/08/20 atorvastatin 10 mg PO HS 06/08/20 06/08/20 bupropion HCl 300 mg PO QAM 06/08/20 06/08/20 buspirone 7.5 mg PO TID 06/08/20 06/08/20 capsaicin 1 applic TOPICAL TID 06/08/20 06/08/20 cyclobenzaprine [Flexeril] 10 mg PO BID PRN 06/08/20 06/08/20 docusate sodium 100 mg PO BID 06/08/20 06/08/20 ferrous sulfate 325 mg PO DAILY 06/08/20 06/08/20 furosemide 20 mg PO DAILY 06/08/20 06/08/20 lisinopril 5 mg PO DAILY 06/08/20 06/08/20 metoprolol tartrate 37.5 mg PO BID 06/08/20 06/08/20 oxycodone 10 mg PO BID PRN 06/08/20 06/08/20 polyethylene glycol 3350 [Miralax] 17 g PO QAM 06/08/20 06/08/20 pregabalin [Lyrica] 150 mg PO BID 06/08/20 06/08/20 sennosides [senna] 17.2 mg PO HS 06/08/20 06/08/20 Results & Data (ED) Vital Signs Vital Signs - 24 hr 06/08/20 12:20 06/08/20 12:25 06/08/20 13:53 Temperature 36.9 C Temperature Source Oral Pulse Rate 75 Pulse Rate [Left Apical] 76 69 Pulse Rhythm Regular Pulse Rhythm [Left Apical] Regular Regular Pulse Strength Normal Pulse Strength [Left Apical] Normal Normal Respiratory Rate 22 17 20 Respiratory Effort / Characteristics Non-Labored Spontaneous Non-Labored Spontaneous Non-Labored Spontaneous Respiratory Depth Normal Normal Normal Respiratory Pattern Regular Regular Regular Blood Pressure 114/69 Blood Pressure [Right Arm] 112/73 121/75 Blood Pressure Mean 84 Blood Pressure Mean [Right Arm] 86 90 Blood Pressure Position Lying Blood Pressure Position [Right Arm] Lying Lying Pulse Oximetry 96 96 94 Oxygen Delivery Method Room Air Room Air Nasal Cannula Oxygen Flow Rate 2 Sepsis Recent Fever Within 48 Hours No Sepsis New/Unexplained Change in Mental Status Yes Sepsis Action Taken by Nursing Physician Notified 06/08/20 14:00 06/08/20 15:00 06/08/20 16:00 Temperature Temperature Source Pulse Rate Pulse Rate [Left Apical] 68 Pulse Rhythm Pulse Rhythm [Left Apical] Regular Pulse Strength Pulse Strength [Left Apical] Normal Respiratory Rate 22 20 18 Respiratory Effort / Characteristics Non-Labored Spontaneous Non-Labored Spontaneous Non-Labored Spontaneous Respiratory Depth Normal Respiratory Pattern Regular Blood Pressure Blood Pressure [Right Arm] 122/78 Blood Pressure Mean Blood Pressure Mean [Right Arm] 92 Blood Pressure Position Blood Pressure Position [Right Arm] Lying Pulse Oximetry 94 94 97 Oxygen Delivery Method Nasal Cannula Nasal Cannula Nasal Cannula Oxygen Flow Rate 2 2 2 Sepsis Recent Fever Within 48 Hours Sepsis New/Unexplained Change in Mental Status Sepsis Action Taken by Nursing 06/08/20 17:00 06/08/20 17:55 Temperature Temperature Source Pulse Rate Pulse Rate [Left Apical] 76 72 Pulse Rhythm Pulse Rhythm [Left Apical] Regular Regular Pulse Strength Pulse Strength [Left Apical] Normal Normal Respiratory Rate 18 18 Respiratory Effort / Characteristics Non-Labored Spontaneous Non-Labored Spontaneous Respiratory Depth Normal Normal Respiratory Pattern Regular Regular Blood Pressure Blood Pressure [Right Arm] 121/73 143/98 H Blood Pressure Mean Blood Pressure Mean [Right Arm] 89 113 Blood Pressure Position Blood Pressure Position [Right Arm] Lying Lying Pulse Oximetry 97 95 Oxygen Delivery Method Nasal Cannula Nasal Cannula Oxygen Flow Rate 2 2 Sepsis Recent Fever Within 48 Hours Sepsis New/Unexplained Change in Mental Status Sepsis Action Taken by Detention Medications Current Medication List: was personally reviewed by me Laboratory Data Attestation: I reviewed the patient's lab results. Result diagrams: 06/08/20 12:47 06/08/20 12:47 Lab Results 06/08/20 06/08/20 06/08/20 Range/Units 12:47 12:47 12:47 WBC 17.50 H (4.8-10.8) K/uL RBC 5.42 (4.7-6.1) M/uL Hgb 12.9 L (14.0-18.0) g/dL POC Hgb (14.0-18.0) g/dl Hct 40.7 L (42-52) % POC Hct (42-52) % MCV 75.1 L (80-100) fL MCH 23.8 L (25-34) pg MCHC 31.7 L (32-36) g/dL RDW Std Deviation 53.4 H (36.4-46.3) fL RDW Coeff of Hector 19.7 H (11.5-14.5) % Plt Count 1392 H* (130-400) K/uL MPV 10.1 (7.4-10.4) fL Immature Gran % (Auto) 0.6 % Neut % (Auto) 78.1 % Lymph % (Auto) 10.8 % [place] % (Auto) 7.8 % Eos % (Auto) 2.5 % Baso % (Auto) 0.2 % Neut # (Auto) 13.67 H (1.4-6.5) K/uL Lymph # (Auto) 1.89 (1.2-3.4) K/uL [place] # (Auto) 1.37 H (0.11-0.59) K/uL Eos # (Auto) 0.44 (0-0.5) K/uL Baso # (Auto) 0.03 (0-0.2) K/uL Immature Gran # (Auto) 0.10 H (0.00-0.02) K/uL Platelet Estimate Increased H (Normal) PT 12.4 H (9.0-12.0) Seconds INR 1.2 H (0.9-1.1) APTT 36.6 H (21.0-31.0) Seconds PTT Ratio 1.4 VBG pH (7.36-7.41) VBG pCO2 (38-50) mmHg VBG pO2 mmHg VBG HCO3 mmol/L VBG O2 Saturation % VBG Base Excess mEq/L Barometric Pressure mm/Hg POC Sodium (135-144) mmol/L Sodium 140 (136-145) mmol/L POC Potassium (3.3-5.0) mmol/L Potassium 4.1 (3.5-5.1) mmol/L POC Chloride (101-112) mmol/L Chloride 108 H (98-107) mmol/L Carbon Dioxide 27 (21-32) mmol/L POC Total CO2 (24-31) mmol/L Anion Gap 5.0 (3-11) POC Anion Gap (16-25) mmol/L POC BUN (7-18) mg/dl BUN 36 H (7-18) mg/dl Creatinine 1.51 H (0.6-1.4) mg/dl POC Creatinine (0.6-1.3) mg/dl Est Cr Clr Drug Dosing 45.3 ml/min Est GFR ( Amer) 52.4 Est GFR (Non-Af Amer) 45.2 BUN/Creatinine Ratio 23.6 H (10-20) Glucose 98 (70-99) mg/dl POC Glucose (other) (70-99) mg/dl Lactate (0.4-2.0) mmol/L Calcium 8.7 (8.5-10.1) mg/dl POC Ioniz Calcium Bertha (1.12-1.32) mmol/l Magnesium 2.0 (1.8-2.4) mg/dl Total Bilirubin 0.5 (0.2-1) mg/dl AST 18 (15-37) U/L ALT 24 (12-78) U/L Alkaline Phosphatase 68 (45-117) U/L Ammonia (11-32) umol/L Troponin I < 0.015 (0-0.045) ng/ml Total Protein 7.6 (6.4-8.2) gm/dl Albumin 3.7 (3.4-5.0) gm/dl Globulin 3.9 (2.5-4.0) gm/dl Albumin/Globulin Ratio 0.9 (0.9-2) Procalcitonin (0-0.5) ng/ml Urine Color Urine Appearance (Clear) Urine pH (4.5-7.5) Ur Specific [place] (1.000-1.030) Urine Protein (Negative) Urine Glucose (UA) (Negative) Urine Ketones (Negative) Urine Blood (Negative) Urine Nitrite (Negative) Urine Bilirubin (Negative) Urine Urobilinogen (Negative) Ur Leukocyte Esterase (Negative) COVID-19 Eval Order SARS-CoV-2 (PCR) (Negative) Influenza Type A (PCR) (Neg) Influenza Type B (PCR) (Neg) RSV (RT-PCR) (Neg) 06/08/20 06/08/20 06/08/20 Range/Units 12:47 12:47 12:47 WBC (4.8-10.8) K/uL RBC (4.7-6.1) M/uL Hgb (14.0-18.0) g/dL POC Hgb (14.0-18.0) g/dl Hct (42-52) % POC Hct (42-52) % MCV (80-100) fL MCH (25-34) pg MCHC (32-36) g/dL RDW Std Deviation (36.4-46.3) fL RDW Coeff of Hector (11.5-14.5) % Plt Count (130-400) K/uL MPV (7.4-10.4) fL Immature Gran % (Auto) % Neut % (Auto) % Lymph % (Auto) % [place] % (Auto) % Eos % (Auto) % Baso % (Auto) % Neut # (Auto) (1.4-6.5) K/uL Lymph # (Auto) (1.2-3.4) K/uL [place] # (Auto) (0.11-0.59) K/uL Eos # (Auto) (0-0.5) K/uL Baso # (Auto) (0-0.2) K/uL Immature Gran # (Auto) (0.00-0.02) K/uL Platelet Estimate (Normal) PT (9.0-12.0) Seconds INR (0.9-1.1) APTT (21.0-31.0) Seconds PTT Ratio VBG pH (7.36-7.41) VBG pCO2 (38-50) mmHg VBG pO2 mmHg VBG HCO3 mmol/L VBG O2 Saturation % VBG Base Excess mEq/L Barometric Pressure mm/Hg POC Sodium (135-144) mmol/L Sodium (136-145) mmol/L POC Potassium (3.3-5.0) mmol/L Potassium (3.5-5.1) mmol/L POC Chloride (101-112) mmol/L Chloride (98-107) mmol/L Carbon Dioxide (21-32) mmol/L POC Total CO2 (24-31) mmol/L Anion Gap (3-11) POC Anion Gap (16-25) mmol/L POC BUN (7-18) mg/dl BUN (7-18) mg/dl Creatinine (0.6-1.4) mg/dl POC Creatinine (0.6-1.3) mg/dl Est Cr Clr Drug Dosing ml/min Est GFR ( Amer) Est GFR (Non-Af Amer) BUN/Creatinine Ratio (10-20) Glucose (70-99) mg/dl POC Glucose (other) (70-99) mg/dl Lactate 1.1 (0.4-2.0) mmol/L Calcium (8.5-10.1) mg/dl POC Ioniz Calcium Bertha (1.12-1.32) mmol/l Magnesium (1.8-2.4) mg/dl Total Bilirubin (0.2-1) mg/dl AST (15-37) U/L ALT (12-78) U/L Alkaline Phosphatase (45-117) U/L Ammonia 37.9 H (11-32) umol/L Troponin I (0-0.045) ng/ml Total Protein (6.4-8.2) gm/dl Albumin (3.4-5.0) gm/dl Globulin (2.5-4.0) gm/dl Albumin/Globulin Ratio (0.9-2) Procalcitonin 0.05 (0-0.5) ng/ml Urine Color Urine Appearance (Clear) Urine pH (4.5-7.5) Ur Specific [place] (1.000-1.030) Urine Protein (Negative) Urine Glucose (UA) (Negative) Urine Ketones (Negative) Urine Blood (Negative) Urine Nitrite (Negative) Urine Bilirubin (Negative) Urine Urobilinogen (Negative) Ur Leukocyte Esterase (Negative) COVID-19 Eval Order SARS-CoV-2 (PCR) (Negative) Influenza Type A (PCR) (Neg) Influenza Type B (PCR) (Neg) RSV (RT-PCR) (Neg) 06/08/20 06/08/20 06/08/20 Range/Units 12:47 13:02 13:20 WBC (4.8-10.8) K/uL RBC (4.7-6.1) M/uL Hgb (14.0-18.0) g/dL POC Hgb 15.0 (14.0-18.0) g/dl Hct (42-52) % POC Hct 44 (42-52) % MCV (80-100) fL MCH (25-34) pg MCHC (32-36) g/dL RDW Std Deviation (36.4-46.3) fL RDW Coeff of Hector (11.5-14.5) % Plt Count (130-400) K/uL MPV (7.4-10.4) fL Immature Gran % (Auto) % Neut % (Auto) % Lymph % (Auto) % [place] % (Auto) % Eos % (Auto) % Baso % (Auto) % Neut # (Auto) (1.4-6.5) K/uL Lymph # (Auto) (1.2-3.4) K/uL [place] # (Auto) (0.11-0.59) K/uL Eos # (Auto) (0-0.5) K/uL Baso # (Auto) (0-0.2) K/uL Immature Gran # (Auto) (0.00-0.02) K/uL Platelet Estimate (Normal) PT (9.0-12.0) Seconds INR (0.9-1.1) APTT (21.0-31.0) Seconds PTT Ratio VBG pH 7.35 L (7.36-7.41) VBG pCO2 52 H (38-50) mmHg VBG pO2 29 mmHg VBG HCO3 28 mmol/L VBG O2 Saturation < 60.0 % VBG Base Excess 1.8 mEq/L Barometric Pressure 724.7 mm/Hg POC Sodium 142 (135-144) mmol/L Sodium (136-145) mmol/L POC Potassium 4.1 (3.3-5.0) mmol/L Potassium (3.5-5.1) mmol/L POC Chloride 103 (101-112) mmol/L Chloride (98-107) mmol/L Carbon Dioxide (21-32) mmol/L POC Total CO2 27 (24-31) mmol/L Anion Gap (3-11) POC Anion Gap 17.0 (16-25) mmol/L POC BUN 34 H (7-18) mg/dl BUN (7-18) mg/dl Creatinine (0.6-1.4) mg/dl POC Creatinine 1.6 H (0.6-1.3) mg/dl Est Cr Clr Drug Dosing ml/min Est GFR ( Amer) Est GFR (Non-Af Amer) BUN/Creatinine Ratio (10-20) Glucose (70-99) mg/dl POC Glucose (other) 100 H (70-99) mg/dl Lactate (0.4-2.0) mmol/L Calcium (8.5-10.1) mg/dl POC Ioniz Calcium Bertha 1.27 (1.12-1.32) mmol/l Magnesium (1.8-2.4) mg/dl Total Bilirubin (0.2-1) mg/dl AST (15-37) U/L ALT (12-78) U/L Alkaline Phosphatase (45-117) U/L Ammonia (11-32) umol/L Troponin I (0-0.045) ng/ml Total Protein (6.4-8.2) gm/dl Albumin (3.4-5.0) gm/dl Globulin (2.5-4.0) gm/dl Albumin/Globulin Ratio (0.9-2) Procalcitonin (0-0.5) ng/ml Urine Color Urine Appearance (Clear) Urine pH (4.5-7.5) Ur Specific [place] (1.000-1.030) Urine Protein (Negative) Urine Glucose (UA) (Negative) Urine Ketones (Negative) Urine Blood (Negative) Urine Nitrite (Negative) Urine Bilirubin (Negative) Urine Urobilinogen (Negative) Ur Leukocyte Esterase (Negative) COVID-19 Eval Order CovFluRsv at [facility] SARS-CoV-2 (PCR) (Negative) Influenza Type A (PCR) (Neg) Influenza Type B (PCR) (Neg) RSV (RT-PCR) (Neg) 06/08/20 06/08/20 Range/Units 13:20 13:40 WBC (4.8-10.8) K/uL RBC (4.7-6.1) M/uL Hgb (14.0-18.0) g/dL POC Hgb (14.0-18.0) g/dl Hct (42-52) % POC Hct (42-52) % MCV (80-100) fL MCH (25-34) pg MCHC (32-36) g/dL RDW Std Deviation (36.4-46.3) fL RDW Coeff of Hector (11.5-14.5) % Plt Count (130-400) K/uL MPV (7.4-10.4) fL Immature Gran % (Auto) % Neut % (Auto) % Lymph % (Auto) % [place] % (Auto) % Eos % (Auto) % Baso % (Auto) % Neut # (Auto) (1.4-6.5) K/uL Lymph # (Auto) (1.2-3.4) K/uL [place] # (Auto) (0.11-0.59) K/uL Eos # (Auto) (0-0.5) K/uL Baso # (Auto) (0-0.2) K/uL Immature Gran # (Auto) (0.00-0.02) K/uL Platelet Estimate (Normal) PT (9.0-12.0) Seconds INR (0.9-1.1) APTT (21.0-31.0) Seconds PTT Ratio VBG pH (7.36-7.41) VBG pCO2 (38-50) mmHg VBG pO2 mmHg VBG HCO3 mmol/L VBG O2 Saturation % VBG Base Excess mEq/L Barometric Pressure mm/Hg POC Sodium (135-144) mmol/L Sodium (136-145) mmol/L POC Potassium (3.3-5.0) mmol/L Potassium (3.5-5.1) mmol/L POC Chloride (101-112) mmol/L Chloride (98-107) mmol/L Carbon Dioxide (21-32) mmol/L POC Total CO2 (24-31) mmol/L Anion Gap (3-11) POC Anion Gap (16-25) mmol/L POC BUN (7-18) mg/dl BUN (7-18) mg/dl Creatinine (0.6-1.4) mg/dl POC Creatinine (0.6-1.3) mg/dl Est Cr Clr Drug Dosing ml/min Est GFR ( Amer) Est GFR (Non-Af Amer) BUN/Creatinine Ratio (10-20) Glucose (70-99) mg/dl POC Glucose (other) (70-99) mg/dl Lactate (0.4-2.0) mmol/L Calcium (8.5-10.1) mg/dl POC Ioniz Calcium Bertha (1.12-1.32) mmol/l Magnesium (1.8-2.4) mg/dl Total Bilirubin (0.2-1) mg/dl AST (15-37) U/L ALT (12-78) U/L Alkaline Phosphatase (45-117) U/L Ammonia (11-32) umol/L Troponin I (0-0.045) ng/ml Total Protein (6.4-8.2) gm/dl Albumin (3.4-5.0) gm/dl Globulin (2.5-4.0) gm/dl Albumin/Globulin Ratio (0.9-2) Procalcitonin (0-0.5) ng/ml Urine Color Yellow Urine Appearance Clear (Clear) Urine pH 5.5 (4.5-7.5) Ur Specific [place] 1.009 (1.000-1.030) Urine Protein Negative (Negative) Urine Glucose (UA) Negative (Negative) Urine Ketones Negative (Negative) Urine Blood Negative (Negative) Urine Nitrite Negative (Negative) Urine Bilirubin Negative (Negative) Urine Urobilinogen Negative (Negative) Ur Leukocyte Esterase Negative (Negative) COVID-19 Eval Order SARS-CoV-2 (PCR) NEGATIVE (Negative) Influenza Type A (PCR) Negative (Neg) Influenza Type B (PCR) Negative (Neg) RSV (RT-PCR) Negative (Neg) Administered Medications Discontinued Medications Sodium Chloride (Nss 1000ml) 1,000 mls @ 999 mls/hr IV .[id number] ONE Stop: 06/08/20 14:44 Last Infusion: 06/08/20 15:31 Dose: 0 mls/hr Documented by: [id number] Admin: 06/08/20 14:00 Dose: 999 mls/hr Documented by: [id number] Daptomycin 300 mg/ Syringe 6 mls @ 3 mls/min IV NOW STA; Protocol Stop: 06/08/20 17:31 Last Admin: 06/08/20 17:56 Dose: 3 mls/min Documented by: [id number] Cefepime HCl (Maxipime) 20 mls @ 5 mls/min IV NOW STA Stop: 06/08/20 17:49 Last Admin: 06/08/20 17:56 Dose: 5 mls/min Documented by: [id number] Imaging Data Radiologist's Impression: Chest X-Ray 06/08/20 12:52 SINGLE VIEW CHEST CLINICAL HISTORY: Sepsis. FINDINGS: An AP, portable, upright chest radiograph is compared to study dated 06/25/2019 and correlated with chest CT dated 05/29/2019. The examination is degraded by portable technique and patient rotation. The heart is enlarged noting atherosclerotic calcification of the thoracic aorta. Scattered calcified granulomas are observed. There is bibasilar scarring/atelectasis. No large pleural effusion or pneumothorax is seen. The skeletal structures are osteopenic. The bony thorax is grossly intact. Arthritic change is noted in the right shoulder. IMPRESSION: Cardiomegaly with no acute cardiopulmonary abnormality. ACT 112: Negative or not required by law. Electronically signed by: Joel Prater M.D. 06/08/2020 1:[address] 06/08/20 12:52 CT SCAN OF THE BRAIN WITHOUT IV CONTRAST CLINICAL HISTORY: Change in mental status. COMPARISON STUDY: No priors. TECHNIQUE: Unenhanced axial CT scan of the brain is performed from the vertex to the skull base. A dose lowering technique was utilized adhering to the principles of ALARA. The skull base was scanned twice due to motion artifact. CT DOSE: 925.46 mGycm FINDINGS: Brain parenchyma: There are age-related involutional changes noting mild subcortical and periventricular microangiopathic change. There is no hemorrhage, mass effect, or evidence of acute territorial ischemia by CT criteria. Huang- white matter differentiation is preserved. No extra-axial fluid collection is seen. A chronic lacunar infarct versus perivascular space is noted in the right basal ganglia. Ventricles, sulci, cisterns: Prominent secondary to involutional change. Intracranial vasculature: There is atherosclerotic calcification of the cavernous carotid and vertebral arteries. Calvarium: Unremarkable. Soft tissues: A 5 mm metallic foreign bodies present within the left frontotemporal scalp on image #12. Sinuses and mastoids: There is trace mucosal thickening within the sphenoid sinuses and the left posterior ethmoid sinuses. The mastoid air cells are well pneumatized. Orbits: The bony orbits are grossly intact. IMPRESSION: There is no hemorrhage, mass effect, or evidence of acute territorial ischemia by CT criteria. ACT 112: Negative or not required by law. Electronically signed by: Joel Prater M.D. 06/08/2020 3:02 PM Discharge Plan Visit Data Chief Complaint: Confusion ED Provider: Fernie Colin Discharge Problem: Hallucinations, Acute alteration in mental status, Acute respiratory acidosis Patient Disposition: Being Evaluated by Hospitalist Condition: Good Forms Stand Alone Forms: My [facility] Prescriptions Prescriptions: No Action montelukast 10 mg Tablet 10 mg PO DAILY RF: 0 prazosin 5 mg Capsule 5 mg PO HS RF: 0 sertraline 100 mg Tablet 100 mg PO BID RF: 0 pantoprazole 40 mg Tablet,Delayed Release (Dr/Ec) 40 mg PO DAILY RF: 0 Spiriva with HandiHaler 18 mcg Capsule, W/Inhalation Device 1 cap INHALATION DAILY PRN (Reason: Shortness Of Breath) RF: 0 tamsulosin [Flomax] 0.4 mg Capsule 0.4 mg PO QPM RF: 0 trazodone 150 mg Tablet 150 mg PO HS RF: 0 budesonide-formoterol 160-4.5 mcg/actuation Hfa Aerosol Inhaler 2 puff INHALATION BID RF: 0 cyclobenzaprine [Flexeril] 10 mg Tablet 10 mg PO BID PRN (Reason: Muscle Spasm) RF: 0 buspirone 5 mg Tablet 7.5 mg PO TID RF: 0 sennosides [senna] 8.6 mg Tablet 17.2 mg PO HS RF: 0 atorvastatin 20 mg Tablet 10 mg PO HS RF: 0 polyethylene glycol 3350 [Miralax] 17 gram Powder In Packet 17 g PO QAM RF: 0 ascorbic acid (vitamin C) 500 mg Tablet 500 mg PO DAILY RF: 0 ferrous sulfate 325 mg (65 mg iron) Tablet 325 mg PO DAILY RF: 0 docusate sodium 100 mg Capsule 100 mg PO BID RF: 0 capsaicin 0.025 % Cream 1 applic TOPICAL TID RF: 0 aspirin 81 mg Tablet 81 mg PO DAILY RF: 0 lisinopril 5 mg Tablet 5 mg PO DAILY RF: 0 furosemide 20 mg Tablet 20 mg PO DAILY RF: 0 albuterol 90 mcg/actuation Aerosol 90 mcg INHALATION Q4H PRN (Reason: Shortness Of Breath) RF: 0 oxycodone 5 mg Tablet 10 mg PO BID PRN (Reason: Pain) RF: 0 bupropion HCl 300 mg Tablet Extended Release 24 Hr 300 mg PO QAM RF: 0 pregabalin [Lyrica] 150 mg Capsule 150 mg PO BID RF: 0 metoprolol tartrate 25 mg tablet 37.5 mg PO BID RF: 0 Eliquis 5 mg Tablet 5 mg PO BID RF: 0 Referrals Referrals: Taylor Brannon M.D. [Primary Care Provider] -
[2020-06-08 13:31] LABS: Alanine Aminotransferase 24 U/L (12-78); Albumin Level 3.7 gm/dl (3.4-5.0); Aspartate Aminotransferase 18 U/L (15-37); BUN Creatinine Ratio 23.6 (10-20); Blood Urea Nitrogen 36 mg/dl (7-18); Calcium 8.7 mg/dl (8.5-10.1); Carbon Dioxide 27 mmol/L (21-32); Chloride 108 mmol/L (98-107); Creatinine Clr Calc Pharmacy 45.3 ml/min; Est GFR (African American) 52.4; Est GFR (Non-African American) 45.2; Glucose 98 mg/dl (70-99); Potassium 4.1 mmol/L (3.5-5.1); Sodium 140 mmol/L (136-145)
[2020-06-08 13:36] LABS: Albumin Globulin Ratio 0.9 (0.9-2); Alkaline Phosphatase 68 U/L (45-117); Bilirubin,Total 0.5 mg/dl (0.2-1); Globulin 3.9 gm/dl (2.5-4.0); Total Protein 7.6 gm/dl (6.4-8.2); Troponin I < 0.015 ng/ml (0-0.045)
[2020-06-08 13:39] LABS: Basophils # (auto) 0.03 K/uL (0-0.2); Basophils % (auto) 0.2 %; Eosinophils # (auto) 0.44 K/uL (0-0.5); Eosinophils % (auto) 2.5 %; Hematocrit (blood only) 40.7 % (42-52); Hemoglobin 12.9 g/dL (14.0-18.0); Immature Granulocytes % (auto) 0.6 %; Lymphocytes # (auto) 1.89 K/uL (1.2-3.4); Lymphocytes % (auto) 10.8 %; Mean Corpuscular Hemoglobin 23.8 pg (25-34); Mean Corpuscular Hgb Conc 31.7 g/dL (32-36); Mean Corpuscular Volume 75.1 fL (80-100); Mean Platelet Volume 10.1 fL (7.4-10.4); Monocytes # (auto) 1.37 K/uL (0.11-0.59); Monocytes % (auto) 7.8 %; Neutrophils # (auto) 13.67 K/uL (1.4-6.5); Neutrophils % (auto) 78.1 %; Platelet Count 1392 K/uL (130-400); Platelet Estimate Increased (Normal); RDW Coefficient of Variation 19.7 % (11.5-14.5); RDW Standard Deviation 53.4 fL (36.4-46.3); Red Blood Count 5.42 M/uL (4.7-6.1)
[2020-06-08] MEDS ORDERED: SODIUM CHLORIDE 0.9% 1000ML 1,000 ML IV ONE (13:44)
--- NOTE | 2020-06-08 13:50 | XRay Report ---
SINGLE VIEW CHEST CLINICAL HISTORY: Sepsis. FINDINGS: An AP, portable, upright chest radiograph is compared to study dated 06/25/2019 and correlat ed with chest CT dated 05/29/2019. The examination is degraded by portable technique and patient rotati on. The heart is enlarged noting atherosclerotic calcification of the thoracic aorta. Scattered calci fied granulomas are observed. There is bibasilar scarring/atelectasis. No large pleural effusion or p neumothorax is seen. The skeletal structures are osteopenic. The bony thorax is grossly intact. Arthr itic change is noted in the right shoulder. IMPRESSION: Cardiomegaly with no acute cardiopulmonary abnormality. ACT 112: Negative or not required by law. Electronically signed by: Joel Prater M.D. 06/08/2020 1:48 PM
[2020-06-08 13:52] LABS: Appearance Urine Clear (Clear); Bilirubin Urine Negative (Negative); Blood Urine Negative (Negative); Color Urine Yellow; Glucose Urine UA Negative (Negative); Ketones Urine Negative (Negative); Leukocyte Esterase Urine Negative (Negative); Nitrite Urine Negative (Negative); Protein Urine Negative (Negative); Specific Gravity Urine 1.009 (1.000-1.030); Urobilinogen Urine Negative (Negative); pH Urine 5.5 (4.5-7.5)
[2020-06-08 14:27] LABS: Influenza A virus by PCR Negative (Neg); Influenza B virus by PCR Negative (Neg); RSV by PCR Negative (Neg); SARS CoV2 RNA(COVID-19) InHosp NEGATIVE (Negative)
--- NOTE | 2020-06-08 15:03 | CT Scan Report ---
CT SCAN OF THE BRAIN WITHOUT IV CONTRAST CLINICAL HISTORY: Change in mental status. COMPARISON STUDY: No priors. TECHNIQUE: Unenhanced axial CT scan of the brain is performed from the vertex to the skull base. A do se lowering technique was utilized adhering to the principles of ALARA. The skull base was scanned tw ice due to motion artifact. CT DOSE: 925.46 mGycm FINDINGS: Brain parenchyma: There are age-related involutional changes noting mild subcortical and periventric ular microangiopathic change. There is no hemorrhage, mass effect, or evidence of acute territorial i schemia by CT criteria. Huang-white matter differentiation is preserved. No extra-axial fluid collecti on is seen. A chronic lacunar infarct versus perivascular space is noted in the right basal ganglia. Ventricles, sulci, cisterns: Prominent secondary to involutional change. Intracranial vasculature: There is atherosclerotic calcification of the cavernous carotid and vertebr al arteries. Calvarium: Unremarkable. Soft tissues: A 5 mm metallic foreign bodies present within the left frontotemporal scalp on image #1 2. Sinuses and mastoids: There is trace mucosal thickening within the sphenoid sinuses and the left post erior ethmoid sinuses. The mastoid air cells are well pneumatized. Orbits: The bony orbits are grossly intact. IMPRESSION: There is no hemorrhage, mass effect, or evidence of acute territorial ischemia by CT donist obey. ACT 112: Negative or not required by law. Electronically signed by: Joel Prater M.D. 06/08/2020 3:02 PM
--- NOTE | 2020-06-08 15:48 | History & Physical Report ---
Date of Service June 08, 2020 Assessment & Plan (1) Acute alteration in mental status: Unclear etiology but given increased erythema of stump and neutrophilia will cover with antibiotics overnight prior to potentially transferring the patient to [place] hospital where he is much better known tomorrow. Normal BM per his . No recent change to his mood medications per his at bedside. (2) Hallucinations: As above (3) Cellulitis: Increased erythema over stump as per his . No definitive cellulitic changes however given lack of alternative explanation of his change in mental state, neutrophilia and recent history of such will cover for this with daptomycin and cefepime pending further history from the [place] and blood culture results. (4) HTN (hypertension): Continue usual medication regimen with furosemide 20mg PO daily, lisinopril 5mg PO daily, metoprolol tartrate 37.5mg PO BID (5) Paroxysmal atrial fibrillation: Currently atrial paced complexes Continue Eliquis (6) VIK (obstructive sleep apnea): BiPAP HS (7) Peripheral artery disease: s/p bilateral below knee amputations in the last year (8) PTSD (post-traumatic stress disorder): Continue sertraline 100mg PO BID (9) BPH (benign prostatic hyperplasia): Continue tamsulosin 0.4mg PO daily (10) DVT prophylaxis: Eliquis as above Admission and Anticipated Discharge Date Admission Date: June 08, 2020 History of Present Illness Chief Complaint: Altered mental status Primary Care Provider: Taylor Brannon Edsabine De Los Santos is a 75-year-old male who presents to the ER due to altered mental status, bilateral jerking movements and hallucinations. History mostly taken from his at bedside due to altered mental status. She reports he was recently discharged 6 days ago from the [place] in [place]. She is noticed progressive confusion over the last 3 days. This morning he has been seeing people on the roof and was concerned people were breaking into the house. She reports compliance with all his medications since discharge. She does note 3 days of confusion while at the [place] in [place] and was diagnosed with dehydration and TARUN at that time. Similar " talking to people that weren't there" has occurred in the setting of right ankle infection in May 2019 (notably also eventually led to below-knee amputation). He has a extensive recent history at the [place] of which records are currently not available on admission. Reportedly was hospitalized at the [place] in [place] from April 02 due to left acute arterial thrombosis causing ischemic limb and ultimately interventions were unsuccessful and he underwent left leg below-knee amputation on April 06. His postoperative course was complicated by infections requiring debridement on April 20 and . He reportedly has not been on antibiotics for several weeks however. He was discharged to the [place] in [place] for further rehabilitation on approximately April 30. He was discharged to home on June 02. She does report there is some concern with leukemia during his recent admission due to persistently elevated white blood count and platelets. Telehealth visit performed with [place] [facility] in [place] with plan follow-up in June. He has a diagnosis of obstructive sleep apnea but is intolerant with his home CPAP. Prior postoperative course complicated with hypercapnia requiring BiPAP. In the ER CT head was unremarkable for acute intracranial abnormalities. Allergies Allergy/AdvReac Type Severity Reaction Status Date / Time ibuprofen Allergy Intermediate HIVES Verified 06/08/20 14:55 Home Medications Medication Instructions Recorded Confirmed Type Spiriva with HandiHaler 1 cap INHALATION DAILY PRN 11/30/17 06/08/20 History pantoprazole 40 mg PO DAILY 11/30/17 06/08/20 History sertraline 100 mg PO BID 11/30/17 06/08/20 History tamsulosin [Flomax] 0.4 mg PO QPM 10/05/18 06/08/20 History montelukast 10 mg PO DAILY 05/26/19 06/08/20 History prazosin 5 mg PO HS 05/26/19 06/08/20 History budesonide-formoterol 2 puff INHALATION BID 06/22/19 06/08/20 History trazodone 150 mg PO HS 06/22/19 06/08/20 History albuterol 90 mcg INHALATION Q4H PRN 06/08/20 06/08/20 History apixaban [Eliquis] 5 mg PO BID 06/08/20 06/08/20 History ascorbic acid (vitamin C) 500 mg PO DAILY 06/08/20 06/08/20 History aspirin 81 mg PO DAILY 06/08/20 06/08/20 History atorvastatin 10 mg PO HS 06/08/20 06/08/20 History bupropion HCl 300 mg PO QAM 06/08/20 06/08/20 History buspirone 7.5 mg PO TID 06/08/20 06/08/20 History capsaicin 1 applic TOPICAL TID 06/08/20 06/08/20 History cyclobenzaprine [Flexeril] 10 mg PO BID PRN 06/08/20 06/08/20 History docusate sodium 100 mg PO BID 06/08/20 06/08/20 History ferrous sulfate 325 mg PO DAILY 06/08/20 06/08/20 History furosemide 20 mg PO DAILY 06/08/20 06/08/20 History lisinopril 5 mg PO DAILY 06/08/20 06/08/20 History metoprolol tartrate 37.5 mg PO BID 06/08/20 06/08/20 History oxycodone 10 mg PO BID PRN 06/08/20 06/08/20 History polyethylene glycol 3350 [Miralax] 17 g PO QAM 06/08/20 06/08/20 History pregabalin [Lyrica] 150 mg PO BID 06/08/20 06/08/20 History sennosides [senna] 17.2 mg PO HS 06/08/20 06/08/20 History Past Med/Surg History Medical History (Updated 06/09/20 @ 07:09 by Toño Harding MD) Asthma BPH (benign prostatic hyperplasia) Chronic bronchitis Closed fracture dislocation of ankle DDD (degenerative disc disease) Diverticulitis HTN (hypertension) Intractable back pain MRSA (methicillin resistant Staphylococcus aureus) negative nasal swab on 06/24/15 and 10/05/18 Obesity Open wound of ankle with complication VIK on CPAP Noncompliant Prolonged QT interval OIs=315 EKG 05/25/19 PTSD (post-traumatic stress disorder) do not wake patient by touching, wake patient by saying name Surgical History History of back surgery back surgery x3 at [facility] History of partial colectomy S/P hernia repair Status post ORIF of fracture of ankle 05/26/[address] Farhan DIEZ with sedation. Family History Other Family history non-contributory Social History Smoking Status: Former smoker Tobacco Type: Smokeless Tobacco (Dip or Chew) Smoking End Date: quit "50 something years ago"; Second Hand Exposure: No; Hx Alcohol Use: Yes Alcohol type: beer Hx Substance Use: No Preferred Language: Malaysian Communication Ability: Effective Hop Strainer Required: No Beliefs That Will Affect Care: None marital status: Current Living Situation: Family Current Living Situation Comment: with wifr and grandson Feels Safe at Home: Yes Safety Concerns: Feels Safe At This Time Assistive Devices: CPAP, Denture - Upper, Glasses, Hearing Aid - Bilateral and Prosthesis Assistive Devices Comment: prosthetic for R leg. Hasn't used CPAP for 7 months Review of Systems Review of Systems: All systems reviewed & are unremarkable except as noted in HPI & below Physical Exam Constitutional: well developed and well nourished; no acute distress Eyes: PERRL, conjunctivae normal, anicteric sclerae ENMT: external ear and nose normal, oropharynx normal Neck: trachea midline Respiratory: normal respiratory effort, lungs clear to auscultation Cardiovascular: Rate/Rhythm: regular rate and regular rhythm Heart Sounds: no murmur Extremities: normal capillary refill; no edema Skin: Mild erythema surrounding surgical wound of left BKA, fluctuance noted. Open area without pus on lateral aspect of surgical wound. Neurologic: moves all extremities (b/l BKA) and awake Occasional jerking limb movements Psychiatric: Orientation: alert and oriented to person; + not oriented to place and + not oriented to time Results & Data [facility] Vital Signs (Past 12 Hours) Vital Signs Temp Pulse Pulse Resp BP BP Pulse Ox 06/08/20 15:00 68 20 122/78 94 06/08/20 14:00 22 94 06/08/20 13:53 69 20 121/75 94 06/08/20 12:25 76 17 112/73 96 06/08/20 12:20 36.9 C 75 22 114/[address] SCAN OF THE BRAIN WITHOUT IV CONTRAST IMPRESSION: There is no hemorrhage, mass effect, or evidence of acute territorial ischemia by CT criteria. SINGLE VIEW CHEST IMPRESSION: Cardiomegaly with no acute cardiopulmonary abnormality. Medications Administered ER Medications Given: NSS 1L bolus ECG Rate (beats per minute): 73 Rhythm: sinus with SA Findings: + paced rhythm (occasional atrial paced beats) Comparison ECG Date: from (June 28, 2019) Change: the following changes noted (Atrial paced beats now present) Code Status & VTE Plan Code Status DNR/DNI VTE Prophylaxis Plan VTE Prophylaxis will be ordered: No PG Care Time/CCT Total # of Minutes Spent Total Time Spent with Patient: Total time spent is greater than 50% in coordination of care (as documented) at patient's floor/unit and/or counseling patient: Coding Level of Care Code 70265 OBS Care - Level 3 Diagnoses Acute alteration in mental status R41.82 Hallucinations R44.3 Cellulitis L03.90 HTN (hypertension) I10 Hypertension type: essential hypertension Paroxysmal atrial fibrillation I48.0 VIK (obstructive sleep apnea) G47.33 Peripheral artery disease I73.9 PTSD (post-traumatic stress disorder) F43.10 BPH (benign prostatic hyperplasia) N40.0 DVT prophylaxis Z29.9 (1) HTN (hypertension) Hypertension type: essential hypertension Qualified Code(s): I10 - Essential (primary) hypertension
[2020-06-08] MEDS ORDERED: CEFEPIME 2,000 MG in SYRINGE 0 ML IV STA (17:28)
[2020-06-08] MEDS ORDERED: DAPTOmycin 300 MG in SYRINGE 0 ML IV STA (17:30)
[2020-06-08] MEDS ORDERED: CEFEPIME 20 ML IV STA (17:46)
[2020-06-08] MEDS ORDERED: ACETAMINOPHEN 325 MG TAB PO PRN (20:28)
[2020-06-08] MEDS ORDERED: ONDANSETRON INJ 2 MG/ML 2 ML VIAL IV PRN (20:28)
[2020-06-08] MEDS ORDERED: CEFEPIME CONSULT ACTIVE PRN (20:51)
[2020-06-08] MEDS ORDERED: CYCLOBENZAPRINE HCL 10 MG TAB PO PRN (20:53)
[2020-06-08] MEDS: busPIRone 7.5 MG TAB PO SCH (22:26)
[2020-06-08] MEDS: DOCUSATE SODIUM 100 MG CAP PO SCH (22:26)
[2020-06-08] MEDS: ATORVASTATIN 10 MG TAB PO SCH (22:27)
[2020-06-08] MEDS: traZODone HCL 50 MG TAB PO SCH (22:27)
[2020-06-08] MEDS: TAMSULOSIN HCL 0.4 MG CAP PO SCH (22:27)
[2020-06-08] MEDS: METOPROLOL TARTRATE 25 MG TAB PO SCH (22:27)
[2020-06-08] MEDS: APIXABAN 5 MG TABLET PO SCH (22:27)
[2020-06-08] MEDS: PRAZOSIN HCL 1 MG CAP PO SCH (22:28)
[2020-06-08] MEDS: MONTELUKAST SODIUM 10 MG TABLET PO SCH (22:28)
[2020-06-08] MEDS: SENNA 8.6 MG TAB PO SCH (22:28)
[2020-06-08] MEDS: PREGABALIN 150 MG CAP PO SCH (22:28)
[2020-06-08] MEDS: SERTRALINE HCL 100 MG TABLET PO SCH (22:29)
--- NOTE | 2020-06-09 06:00 | Electrocardiogram Report ---
Test Reason : Blood Pressure : / mmHG Vent. Rate : 073 BPM Atrial Rate : 073 BPM P-R Int : 196 ms QRS Dur : 084 ms QT Int : 402 ms P-R-T Axes : 001 042 051 degrees QTc Int : 442 ms Sinus rhythm with sinus arrhythmia with occasional atrial-paced complexes When compared with ECG of 28-JUN-2019 10:39, Atrial paced complex is now present Confirmed by Hernán Hare ([id number]) on 06/09/2020 5:59:36 AM Referred By: Confirmed By:Hernán Hare
[2020-06-09 07:48] LABS: Basophils # (auto) 0.03 K/uL (0-0.2); Basophils % (auto) 0.2 %; Eosinophils # (auto) 0.53 K/uL (0-0.5); Eosinophils % (auto) 3.5 %; Hematocrit (blood only) 41.3 % (42-52); Hemoglobin 12.6 g/dL (14.0-18.0); Immature Granulocytes # (auto) 0.11 K/uL (0.00-0.02); Immature Granulocytes % (auto) 0.7 %; Lymphocytes # (auto) 2.04 K/uL (1.2-3.4); Lymphocytes % (auto) 13.6 %; Mean Corpuscular Hemoglobin 23.3 pg (25-34); Mean Corpuscular Hgb Conc 30.5 g/dL (32-36); Mean Corpuscular Volume 76.5 fL (80-100); Mean Platelet Volume 9.9 fL (7.4-10.4); Monocytes # (auto) 1.29 K/uL (0.11-0.59); Monocytes % (auto) 8.6 %; Neutrophils # (auto) 10.99 K/uL (1.4-6.5); Neutrophils % (auto) 73.4 %; Platelet Count 1028 K/uL (130-400); RDW Coefficient of Variation 19.5 % (11.5-14.5); RDW Standard Deviation 53.9 fL (36.4-46.3); White Blood Count 14.99 K/uL (4.8-10.8)
[2020-06-09 08:13] LABS: Albumin Level 3.7 gm/dl (3.4-5.0); Calcium 9.5 mg/dl (8.5-10.1); Creatinine Clr Calc Pharmacy 40.7 ml/min; Est GFR (Non-African American) 40.6; Potassium 4.1 mmol/L (3.5-5.1)
[2020-06-09 08:16] LABS: Bilirubin,Total 0.7 mg/dl (0.2-1); Globulin 3.6 gm/dl (2.5-4.0); Total Protein 7.3 gm/dl (6.4-8.2)
[2020-06-09] MEDS: SERTRALINE HCL 100 MG TABLET PO SCH ×2 (08:34→20:29)
[2020-06-09] MEDS: DOCUSATE SODIUM 100 MG CAP PO SCH ×2 (08:35→20:31)
[2020-06-09] MEDS: PANTOprazole 40 MG TAB PO SCH (08:35)
[2020-06-09] MEDS: ASPIRIN 81 MG ECTAB PO SCH (08:35)
[2020-06-09] MEDS: busPIRone 7.5 MG TAB PO SCH ×3 (08:35→20:31)
[2020-06-09] MEDS: METOPROLOL TARTRATE 25 MG TAB PO SCH ×2 (08:35→20:28)
[2020-06-09] MEDS: APIXABAN 5 MG TABLET PO SCH ×2 (08:35→20:31)
[2020-06-09] MEDS: lisinopril 5 MG TAB PO SCH (08:35)
[2020-06-09] MEDS: FERROUS SULFATE 325 MG TAB PO SCH (08:35)
[2020-06-09] MEDS: buPROPion XL 300 MG TABCR PO SCH (08:35)
[2020-06-09] MEDS: FLUTICASONE/VILANTEROL 200/25MCG 14 PUFFS/INHALER INH SCH (08:37)
[2020-06-09] MEDS: POLYETHYLENE (MIRALAX) 17 GM PACK PO SCH (08:37)
[2020-06-09] MEDS: UMECLIDINIUM BROMIDE 62.5MCG/BLISTER 7 PUFFS/INHALER INH SCH (08:37)
[2020-06-09] MEDS: ASCORBIC ACID 500 MG TAB PO SCH (08:38)
[2020-06-09] MEDS: PREGABALIN 150 MG CAP PO SCH ×2 (08:39→20:28)
[2020-06-09] MEDS: oxyCODONE HCL IR 5 MG TAB (IMMEDIATE RELEASE) PO PRN ×2 (13:28→19:18)
--- NOTE | 2020-06-09 15:19 | Hospitalist Progress Note ---
Date of Service June 09, 2020 Assessment & Plan (1) Acute alteration in mental status: Unclear etiology but given increased erythema of stump and neutrophilia will cover with antibiotics overnight prior to potentially transferring the patient to [place] hospital where he is much better known tomorrow. certainly his polypharmacy might contribute he takes buproprion, buspirone, Flexeril, Oxycodone, Lyrica, Zoloft, Trazodone has hallucinations, hesitant to add atypical antipsychotic due to all the above medications (2) Hallucinations: As above (3) Cellulitis: Increased erythema over stump as per his . No definitive cellulitic changes however given lack of alternative explanation of his change in mental state, neutrophilia and recent history of such will cover for this with daptomycin and cefepime pending further history from the [place] and blood culture results. plan to transfer to [place] in [place] since they know him better (4) HTN (hypertension): Continue usual medication regimen with furosemide 20mg PO daily, lisinopril 5mg PO daily, metoprolol tartrate 37.5mg PO BID (5) Paroxysmal atrial fibrillation: Currently atrial paced complexes Continue Eliquis (6) VIK (obstructive sleep apnea): BiPAP HS (7) Peripheral artery disease: s/p bilateral below knee amputations in the last year (8) PTSD (post-traumatic stress disorder): Continue sertraline 100mg PO BID (9) BPH (benign prostatic hyperplasia): Continue tamsulosin 0.4mg PO daily (10) DVT prophylaxis: Eliquis as above Admission and Anticipated Discharge Date Admission Date: June 09, 2020 Subjective patient had some confusion and hallucinations this morning he has been alert eating and drinking well according to RN no issues breathing discussed going to [facility], he agrees Review of Systems Review of Systems: All systems reviewed & are unremarkable except as noted in Subjective Physical Exam Constitutional: WD/WN, vitals as above Neck: trachea midline, no thyromegaly Respiratory: normal respiratory effort, lungs clear to auscultation Cardiovascular: RRR, no murmur, no edema Gastrointestinal (Abdomen): normal bowel sounds, soft, nontender, no hepatosplenomegaly Musculoskeletal: Head/Neck/Chest: normocephalic, head atraumatic and neck supple Extremities: + abnormal strength (weakness) and + amputation noted (bilateral BKA) Skin: no rashes, warm and dry Psychiatric: Orientation: alert and oriented to person; + not oriented to place and + not oriented to time Hallucinations: + auditory hallucinations and + visual hallucinations Lymphatic: no cervical or axillary lymphadenopathy Results & Data Results & Data ([facility]) Vital Signs (Past 12 Hours) Vital Signs Temp Pulse Pulse Resp BP Pulse Ox 06/09/20 15:00 36.6 C 61 18 98/61 L 90 06/09/20 11:21 36.4 C L 67 16 100/59 L 95 06/09/20 08:00 65 06/09/20 07:50 36.8 C 70 18 104/61 94 Laboratory Results Laboratory Results - last 24 hr 06/08/20 06/09/20 06/09/20 12:47 07:24 07:24 WBC 14.99 H RBC 5.40 Hgb 12.6 L Hct 41.3 L MCV 76.5 L MCH 23.3 L MCHC 30.5 L RDW Std Deviation 53.9 H RDW Coeff of Hector 19.5 H Plt Count 1028 H* MPV 9.9 Immature Gran % (Auto) 0.7 Neut % (Auto) 73.4 Lymph % (Auto) 13.6 [place] % (Auto) 8.6 Eos % (Auto) 3.5 Baso % (Auto) 0.2 Neut # (Auto) 10.99 H Lymph # (Auto) 2.04 [place] # (Auto) 1.29 H Eos # (Auto) 0.53 H Baso # (Auto) 0.03 Immature Gran # (Auto) 0.11 H Sodium 141 Potassium 4.1 Chloride 109 H Carbon Dioxide 27 Anion Gap 4.0 BUN 36 H Creatinine 1.65 H Est Cr Clr Drug Dosing 40.7 Est GFR ( Amer) 47.0 Est GFR (Non-Af Amer) 40.6 BUN/Creatinine Ratio 22.0 H Glucose 106 H Calcium 9.5 Total Bilirubin 0.7 AST 20 ALT 20 Alkaline Phosphatase 64 Total Protein 7.3 Albumin 3.7 Globulin 3.6 Albumin/Globulin Ratio 1.0 Hepatitis C Ab Screen Neg Medications Administered Current Inpatient Medications Acetaminophen (Acetaminophen 325 Mg Tab) 650 mg PO Q4H PRN PRN Reason: Pain or Fever Stop: 07/08/20 20:27 Last Admin: 06/09/20 00:54 Dose: 650 mg Documented by: Apixaban (Apixaban 5 Mg Tablet) 5 mg PO BID [facility] Stop: 07/08/20 20:59 Last Admin: 06/09/20 08:35 Dose: 5 mg Documented by: Ascorbic Acid (Ascorbic Acid 500 Mg Tab) 500 mg PO DAILY [facility] Stop: 07/09/20 08:59 Last Admin: 06/09/20 08:38 Dose: 500 mg Documented by: Aspirin (Aspirin 81 Mg Ectab) 81 mg PO DAILY [facility] Stop: 07/09/20 08:59 Last Admin: 06/09/20 08:35 Dose: 81 mg Documented by: Atorvastatin Calcium (Atorvastatin 10 Mg Tab) 10 mg PO HS [facility] Stop: 07/08/20 20:59 Last Admin: 06/08/20 22:27 Dose: 10 mg Documented by: Bupropion HCl (Bupropion Xl 300 Mg Tabcr) 300 mg PO QAM [facility] Stop: 07/09/20 08:59 Last Admin: 06/09/20 08:35 Dose: 300 mg Documented by: Buspirone HCl (Buspirone 7.5 Mg Tab) 7.5 mg PO TID [facility] Stop: 07/08/20 20:59 Last Admin: 06/09/20 13:28 Dose: 7.5 mg Documented by: Cyclobenzaprine HCl (Cyclobenzaprine Hcl 10 Mg Tab) 10 mg PO BID PRN PRN Reason: Muscle Spasm Stop: 07/08/20 20:52 Docusate Sodium (Docusate Sodium 100 Mg Cap) 100 mg PO BID [facility] Stop: 07/08/20 20:59 Last Admin: 06/09/20 08:35 Dose: 100 mg Documented by: Ferrous Sulfate (Ferrous Sulfate 325 Mg Tab) 325 mg PO DAILY [facility] Stop: 07/09/20 08:59 Last Admin: 06/09/20 08:35 Dose: 325 mg Documented by: Fluticasone/Vilanterol (Fluticasone/Vilanterol 200/25mcg 14 Puffs/Inhaler) 1 puffs INH DAILY [facility]; Protocol Stop: 07/09/20 08:59 Last Admin: 06/09/20 08:37 Dose: 1 puffs Documented by: Daptomycin 300 mg/ Syringe 6 mls @ 0 mls/min IV Q24H [facility]; Protocol Stop: 06/16/20 17:59 Cefepime HCl 2,000 mg/ Syringe 20 mls @ 5 mls/min IV Q24H [facility]; Protocol Stop: 06/16/20 17:59 Lisinopril (Lisinopril 5 Mg Tab) 5 mg PO DAILY [facility] Stop: 07/09/20 08:59 Last Admin: 06/09/20 08:35 Dose: 5 mg Documented by: Metoprolol Tartrate (Metoprolol Tartrate 25 Mg Tab) 37.5 mg PO BID [facility] Stop: 07/08/20 20:59 Last Admin: 06/09/20 08:35 Dose: 37.5 mg Documented by: Miscellaneous Information (Daptomycin Consult Active) 1 ea N/A UD PRN PRN Reason: Consult Stop: 07/08/20 17:19 Miscellaneous Information (Cefepime Consult Active) 1 ea N/A UD PRN PRN Reason: Consult Stop: 07/08/20 20:50 Montelukast Sodium (Montelukast Sodium 10 Mg Tablet) 10 mg PO HS [facility] Stop: 07/08/20 20:59 Last Admin: 06/08/20 22:28 Dose: 10 mg Documented by: Ondansetron HCl (Ondansetron Inj 2 Mg/Ml 2 Ml Vial) 4 mg IV Q6H PRN PRN Reason: Nausea Stop: 07/08/20 20:27 Oxycodone HCl (Oxycodone Hcl Ir 5 Mg Tab (Immediate Release)) 5 mg PO Q4H PRN PRN Reason: Pain Stop: 06/22/20 20:54 Last Admin: 06/09/20 13:28 Dose: 5 mg Documented by: Pantoprazole Sodium (Pantoprazole 40 Mg Tab) 40 mg PO DAILY [facility] Stop: 07/09/20 08:59 Last Admin: 06/09/20 08:35 Dose: 40 mg Documented by: Polyethylene Glycol (Polyethylene (Miralax) 17 Gm Pack) 17 gm PO QAM [facility] Stop: 07/09/20 08:59 Last Admin: 06/09/20 08:37 Dose: 17 gm Documented by: Prazosin HCl (Prazosin Hcl 1 Mg Cap) 5 mg PO HS [facility] Stop: 07/08/20 20:59 Last Admin: 06/08/20 22:28 Dose: 5 mg Documented by: Pregabalin (Pregabalin 150 Mg Cap) 150 mg PO BID [facility] Stop: 07/08/20 20:59 Last Admin: 06/09/20 08:39 Dose: 150 mg Documented by: Sennosides (Senna 8.6 Mg Tab) 17.2 mg PO HS [facility] Stop: 07/08/20 20:59 Last Admin: 06/08/20 22:28 Dose: 17.2 mg Documented by: Sertraline HCl (Sertraline Hcl 100 Mg Tablet) 100 mg PO BID [facility] Stop: 07/08/20 20:59 Last Admin: 06/09/20 08:34 Dose: 100 mg Documented by: Tamsulosin HCl (Tamsulosin Hcl 0.4 Mg Cap) 0.4 mg PO QPM [facility] Stop: 07/08/20 20:59 Last Admin: 06/08/20 22:27 Dose: 0.4 mg Documented by: Trazodone HCl (Trazodone Hcl 50 Mg Tab) 150 mg PO HS [facility] Stop: 07/08/20 20:59 Last Admin: 06/08/20 22:27 Dose: 150 mg Documented by: Umeclidinium [place] (Umeclidinium [place] 62.5mcg/Blister 7 Puffs/Inhaler) 1 puffs INH DAILY [facility]; Protocol Stop: 07/09/20 08:59 Last Admin: 06/09/20 08:37 Dose: 1 puffs Documented by: PG Care Time/CCT Total # of Minutes Spent Total Time Spent with Patient: Total time spent is greater than 50% in coordination of care (as documented) at patient's floor/unit and/or counseling patient: Coding Level of Care Code 09573 Subseq Hosp Care Lvl 2 Diagnoses Acute alteration in mental status R41.82 Hallucinations R44.3 Cellulitis L03.90 HTN (hypertension) I10 Hypertension type: essential hypertension Paroxysmal atrial fibrillation I48.0 VIK (obstructive sleep apnea) G47.33 Peripheral artery disease I73.9 PTSD (post-traumatic stress disorder) F43.10 BPH (benign prostatic hyperplasia) N40.0 DVT prophylaxis Z29.9 (1) HTN (hypertension) Hypertension type: essential hypertension Qualified Code(s): I10 - Essential (primary) hypertension
[2020-06-09] MEDS: DAPTOmycin 300 MG in SYRINGE 0 ML IV SCH (17:45)
[2020-06-09] MEDS: CEFEPIME 2,000 MG in SYRINGE 0 ML IV SCH (17:46)
[2020-06-09] MEDS: ATORVASTATIN 10 MG TAB PO SCH (20:28)
[2020-06-09] MEDS: traZODone HCL 50 MG TAB PO SCH (20:29)
[2020-06-09] MEDS: SENNA 8.6 MG TAB PO SCH (20:29)
[2020-06-09] MEDS: PRAZOSIN HCL 1 MG CAP PO SCH (20:30)
[2020-06-09] MEDS: MONTELUKAST SODIUM 10 MG TABLET PO SCH (20:30)
[2020-06-09] MEDS: TAMSULOSIN HCL 0.4 MG CAP PO SCH (20:31)
[2020-06-10] MEDS: FERROUS SULFATE 325 MG TAB PO SCH (07:58)
[2020-06-10] MEDS: FLUTICASONE/VILANTEROL 200/25MCG 14 PUFFS/INHALER INH SCH (07:58)
[2020-06-10] MEDS: UMECLIDINIUM BROMIDE 62.5MCG/BLISTER 7 PUFFS/INHALER INH SCH (07:58)
[2020-06-10] MEDS: ASPIRIN 81 MG ECTAB PO SCH (07:58)
[2020-06-10] MEDS: APIXABAN 5 MG TABLET PO SCH (07:58)
[2020-06-10] MEDS: DOCUSATE SODIUM 100 MG CAP PO SCH (07:58)
[2020-06-10] MEDS: busPIRone 7.5 MG TAB PO SCH ×2 (07:58→13:29)
[2020-06-10] MEDS: POLYETHYLENE (MIRALAX) 17 GM PACK PO SCH (07:59)
[2020-06-10] MEDS: SERTRALINE HCL 100 MG TABLET PO SCH (07:59)
[2020-06-10] MEDS: METOPROLOL TARTRATE 25 MG TAB PO SCH (07:59)
[2020-06-10] MEDS: PANTOprazole 40 MG TAB PO SCH (07:59)
[2020-06-10] MEDS: PREGABALIN 150 MG CAP PO SCH (07:59)
[2020-06-10] MEDS: buPROPion XL 300 MG TABCR PO SCH (07:59)
[2020-06-10] MEDS: ASCORBIC ACID 500 MG TAB PO SCH (07:59)
[2020-06-10] MEDS: lisinopril 5 MG TAB PO SCH (07:59)
[2020-06-10] MEDS: oxyCODONE HCL IR 5 MG TAB (IMMEDIATE RELEASE) PO PRN (11:13)
--- NOTE | 2020-06-10 14:54 | Discharge Summary ---
Date of Service June 10, 2020 Admission HPI Per Admitting Provider Addison De Los Santos is a 75-year-old male who presents to the ER due to altered mental status, bilateral jerking movements and hallucinations. History mostly taken from his at bedside due to altered mental status. She reports he was recently discharged 6 days ago from the [facility] in [place]. She is noticed progressive confusion over the last 3 days. This morning he has been seeing people on the roof and was concerned people were breaking into the house. She reports compliance with all his medications since discharge. She does note 3 days of confusion while at the [facility] in [place] and was diagnosed with dehydration and TARUN at that time. Similar " talking to people that weren't there" has occurred in the setting of right ankle infection in May 2019 (notably also eventually led to below-knee amputation). He has a extensive recent history at the CO of which records are currently not available on admission. 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 His postoperative course was complicated by infections requiring debridement on April 20 and . He reportedly has not been on antibiotics for several weeks however. He was discharged to the [facility] in [place] for further rehabilitation on approximately April 30. He was discharged to home on June 02. She does report there is some concern with leukemia during his recent admission due to persistently elevated white blood count and platelets. Telehealth visit performed with [facility] in [place] with plan follow-up in June. He has a diagnosis of obstructive sleep apnea but is intolerant with his home CPAP. Prior postoperative course complicated with hypercapnia requiring BiPAP. In the ER CT head was unremarkable for acute intracranial abnormalities. Principal Diagnosis Hallucinations, left BKA stump cellulitis Discharge Exam Constitutional WD/WN, vitals as above Neck trachea midline, no thyromegaly Respiratory normal respiratory effort, lungs clear to auscultation Cardiovascular RRR, no murmur, no edema Gastrointestinal (Abdomen) normal bowel sounds, soft, nontender, no hepatosplenomegaly Musculoskeletal Head/Neck/Chest: normocephalic, head atraumatic and neck supple Extremities: + abnormal strength (weakness) and + amputation noted (bilateral BKA) Skin no rashes, warm and dry Psychiatric Orientation: alert and oriented to person; + not oriented to place and + not oriented to time Lymphatic no cervical or axillary lymphadenopathy Discharge Data Allergies Allergy/AdvReac Type Severity Reaction Status Date / Time ibuprofen Allergy Intermediate HIVES Verified 06/08/20 14:55 Consultations 06/08/20 15:23 ED Decision to Admit Stat 06/08/20 20:53 Consult Health Information Management Routine Ordered Studies 06/08/20 12:52 CT head/brain wo con Stat Hospital Course (1) Acute alteration in mental status: Unclear etiology but given increased erythema of stump and neutrophilia will cover with antibiotics overnight prior to potentially transferring the patient to [facility] where he is much better known certainly his polypharmacy might contribute he takes buproprion, buspirone, Flexeril, Oxycodone, Lyrica, Zoloft, Trazodone has hallucinations, hesitant to add atypical antipsychotic due to all the above medications (2) Hallucinations: As above (3) Cellulitis: Increased erythema over stump as per his . No definitive cellulitic changes however given lack of alternative explanation of his change in mental state, neutrophilia and recent history of such will cover for this with daptomycin and cefepime pending further history from the CO and blood culture results. plan to transfer to [facility] since they know him better (4) HTN (hypertension): Continue usual medication regimen with furosemide 20mg PO daily, lisinopril 5mg PO daily, metoprolol tartrate 37.5mg PO BID (5) Paroxysmal atrial fibrillation: Currently atrial paced complexes Continue Eliquis (6) VIK (obstructive sleep apnea): BiPAP HS (7) Peripheral artery disease: s/p bilateral below knee amputations in the last year (8) PTSD (post-traumatic stress disorder): Continue sertraline 100mg PO BID (9) BPH (benign prostatic hyperplasia): Continue tamsulosin 0.4mg PO daily (10) DVT prophylaxis: Eliquis as above Total Time Total Time Spent Total Time Spent (In Minutes): 31 Total Time Includes: Examination of the Patient, Discharge Planning, Medication Reconciliation and Communication With Other Providers (spoke with provider at [facility]) Discharge Plan Discharge Items Patient Disposition: Transfer [facility] Reason For Visit: CELLULITIS Discharge Diagnosis: Cellulitis of left BKA stump Condition on Discharge: Good Goals: transfer to [facility] Activity: Resume your previous activity Non-emergency contact: Primary Care Provider Call non-emergency contact if: you have any medication questions Follow-up/Referrals: Taylor Brannon M.D. [Primary Care Provider] - Diet: Heart Healthy Addtl Attending Provider Instructions: transfer to [facility] in [place] of note, he is on Cefepime 2000mg IV q24 and Daptomycin 300mg IV q24 for cellulitis left BKA stump Pending Studies at Discharge: No Stand-Alone Forms: My [facility] Skilled Items Patient informed of condition?: Yes DNR: Yes Discharge Level of Care: Other Communicable Disease: No Discharge Prognosis: Stable Lines: Peripheral IV Urinary Catheter: No Medications and DC Order Prescriptions: Continued montelukast 10 mg Tablet 10 mg PO DAILY RF: 0 prazosin 5 mg Capsule 5 mg PO HS RF: 0 sertraline 100 mg Tablet 100 mg PO BID RF: 0 pantoprazole 40 mg Tablet,Delayed Release (Dr/Ec) 40 mg PO DAILY RF: 0 Spiriva with HandiHaler 18 mcg Capsule, W/Inhalation Device 1 cap INHALATION DAILY PRN (Reason: Shortness Of Breath) RF: 0 tamsulosin [Flomax] 0.4 mg Capsule 0.4 mg PO QPM RF: 0 trazodone 150 mg Tablet 150 mg PO HS RF: 0 budesonide-formoterol 160-4.5 mcg/actuation Hfa Aerosol Inhaler 2 puff INHALATION BID RF: 0 cyclobenzaprine 10 mg Tablet 10 mg PO BID PRN (Reason: Muscle Spasm) RF: 0 buspirone 5 mg Tablet 7.5 mg PO TID RF: 0 sennosides [senna] 8.6 mg Tablet 17.2 mg PO HS RF: 0 atorvastatin 20 mg Tablet 10 mg PO HS RF: 0 polyethylene glycol 3350 [Miralax] 17 gram Powder In Packet 17 g PO QAM RF: 0 ascorbic acid (vitamin C) 500 mg Tablet 500 mg PO DAILY RF: 0 ferrous sulfate 325 mg (65 mg iron) Tablet 325 mg PO DAILY RF: 0 docusate sodium 100 mg Capsule 100 mg PO BID RF: 0 capsaicin 0.025 % Cream 1 applic TOPICAL TID RF: 0 aspirin 81 mg Tablet 81 mg PO DAILY RF: 0 lisinopril 5 mg Tablet 5 mg PO DAILY RF: 0 furosemide 20 mg Tablet 20 mg PO DAILY RF: 0 albuterol 90 mcg/actuation Aerosol 90 mcg INHALATION Q4H PRN (Reason: Shortness Of Breath) RF: 0 oxycodone 5 mg Tablet 10 mg PO BID PRN (Reason: Pain) RF: 0 bupropion HCl 300 mg Tablet Extended Release 24 Hr 300 mg PO QAM RF: 0 pregabalin [Lyrica] 150 mg Capsule 150 mg PO BID RF: 0 metoprolol tartrate 25 mg tablet 37.5 mg PO BID RF: 0 Eliquis 5 mg Tablet 5 mg PO BID RF: 0 Discharge Orders: Discharge Order (Routine); Ordered 06/10/20 Ordered By: Luis Carlos Villalobos Admission Data Admit Date/Time: 06/09/20 14:48 Attending Provider: Luis Carlos Villalobos Admit Provider: Toño Harding Primary Care Provider: Taylor Brannon Other Providers: Toño Harding ; [facility] Coding Level of Care Code D/C Day Management >30 mins Diagnoses Acute alteration in mental status R41.82 Hallucinations R44.3 Cellulitis L03.90 HTN (hypertension) I10 Hypertension type: essential hypertension Paroxysmal atrial fibrillation I48.0 VIK (obstructive sleep apnea) G47.33 Peripheral artery disease I73.9 PTSD (post-traumatic stress disorder) F43.10 BPH (benign prostatic hyperplasia) N40.0 DVT prophylaxis Z29.9
[2020-06-10] MEDS: DAPTOmycin 300 MG in SYRINGE 0 ML IV SCH (18:02)
[2020-06-10] MEDS: CEFEPIME 2,000 MG in SYRINGE 0 ML IV SCH (18:05)
== END 2020-06-10 18:27 | DRG 564 ==
LOC: ED 12:29 → 2W 12:29 → SUATTDRO 17:26 → 2W 19:52

== ENCOUNTER 2022-03-12 12:07 | Inpatient (IN) ==
[2022-03-12] MEDS ORDERED: methylPREDNISolone 125 MG/2 ML VIAL IV STA (12:18)
[2022-03-12] MEDS ORDERED: ALBUT/IPRATROP 3MG/0.5MG NEB 3 ML VIAL NEB STA (12:18)
--- NOTE | 2022-03-12 12:22 | Emergency Department Note ---
Impression & Plan Acute on chronic respiratory failure with hypoxia, Acute exacerbation of chronic obstructive pulmonary disease, Influenza A, Weakness, Chest pain ED Provider Note Provider: Jeffery Vazquez MD DATE OF SERVICE: 03/12/2022 CHIEF COMPLAINT: Shortness of breath, chest pain HISTORY OF PRESENT ILLNESS: Patient is a 76-year-old gentleman history of hypertension, PAD, atrial fibrillation on Eliquis, COPD, partial colectomy, MRSA presenting here via ambulance from his home today. Evidently became sick yesterday. Reporting cough and worsening shortness of breath. Found to be hypoxic by EMS personnel with his shortness of breath today. Experiencing chest discomfort. Denies abdominal pain or nausea vomiting or diarrhea. Denies sick contact to his knowledge. For EMS patient was placed on CPAP received an albuterol treatment as well as a DuoNeb. Patient quite fatigued upon arrival. Patient is able to answer questions. EMS report possible fever on an axillary temperature greater than 100. Patient states he has been taking his medications. No trauma reported. Pain of the chest is worse with coughing. PAST MEDICAL HISTORY: As noted above MEDICATIONS: Reviewed home medications. SOCIAL HISTORY: Former smoker, PHYSICAL EXAM: GENERAL: alert and oriented in no acute distress with CPAP mask in place on stretcher fatigued in appearance Head: normocephalic and atraumatic EYES: No injection, discharge or icterus. NECK: Trachea midline. Supple. ENT: Mucous membranes pink and moist. LUNGS: Airway patent. No retractions. Breath sounds some mild expiratory wheeze HEART: Regular rate and rhythm. Some mid chest wall tenderness ABDOMEN: Nontender healed surgical scar mildly distended. Not peritoneal. SKIN: Acyanotic, warm, dry, without rashes EXTREMITIES: Without swelling, tenderness or deformity of the upper extremities with bilateral BKA's. NEUROLOGICAL: Following commands without slurred speech. No facial droop. Moving all extremities. EK bpm normal sinus rhythm. No PVC or PAC. No COPD ST segment elevation or depression with a QTC of 430. CONTINUOUS CARDIAC MONITORING: was ordered and showed a heart rate of 80s-90s bpm in normal sinus rhythm Patient's laboratory studies and imaging reviewed. Differential includes Reactive airway disease, pneumonia, pneumothorax, COPD, CHF, infections, cardiac ischemia, pulmonary embolism, musculoskeletal, gastrointestinal, as well as other pathologies. IMPRESSION/MEDICAL DECISION MAKING: Patient symptoms yesterday of cough and shortness of breath. Chest pain. Cough makes chest pain worse. EKG without significant findings. He significant cardiac history reviewed in the chart with evidence of A. fib on Eliquis. Taking anticoagulants. Doubt VTE given this. Troponin sent but no clear STEMI on the EKG. Maintained on BiPAP but weaning as able support. Not acidotic here or hypercarbic. Afebrile for us. COVID and flu testing was sent as well as basic blood work. Chest x-ray obtained. He is a bit wheezy and given additional DuoNeb in addition to prehospital intervention as well as a small dose of Solu-Medrol. Does not appear significant fluid overload but exam somewhat compromised as he has lower extremity amputations. Patient test positive for COVID likely exacerbating his underlying COPD. COVID-negative. No significant cytosis. Stable minimal anemia. Stable CKD. No severe electrolyte abnormality with mild hyponatremia and hypomagnesemia. BNP only minimally elevated without a troponin elevation. Doubt significant CHF component. Procalcitonin not elevated. Doubt a significant bacterial component. Doubt acute ACS. Likely some chest discomfort from increased work of breathing. Given a dose of Tamiflu given short onset since symptoms with the flu. Doing we ll on minimal BiPAP settings. Could likely be transitioned off in short order. Discussed with who later arrives and further care here at the hospital per the hospitalist. DIAGNOSIS: Influenza A, shortness of breath, acute COPD exacerbation DISPOSITION: Hospitalist will evaluate Patient was agreeable with this plan. Critical Care I have personally spent 35 minutes of critical care time in the direct management of this patient. This includes bedside care, interpretation of diagnostic studies, and testing, discussion with consultants, patient, and family members, and other required patient management activities. These 35 minutes is in excess of all separately billable procedures. Past Med/Surg History Medical History (Updated 03/12/22 @ 18:29 by Jeffery Vazquez M.D.) Asthma BPH (benign prostatic hyperplasia) Chronic bronchitis Closed fracture dislocation of ankle DDD (degenerative disc disease) Diverticulitis HTN (hypertension) Intractable back pain MRSA (methicillin resistant Staphylococcus aureus) negative nasal swab on 06/24/15 and 10/05/18 Obesity Open wound of ankle with complication VIK on CPAP Noncompliant Prolonged QT interval SVm=290 EKG 05/25/19 PTSD (post-traumatic stress disorder) do not wake patient by touching, wake patient by saying name Surgical History History of back surgery back surgery x3 at [facility] History of partial colectomy S/P hernia repair Status post ORIF of fracture of ankle 05/26/[address] Farhan DIEZ with sedation. Family History Other Family history non-contributory Social History Smoking Status: Former smoker Tobacco Type: Smokeless Tobacco (Dip or Chew) Second Hand Exposure: No; Hx Alcohol Use: Yes Alcohol type: beer Hx Substance Use: No Preferred Language: Serbian Communication Ability: Effective Claim Technician Required: No Beliefs That Will Affect Care: None marital status: Current Living Situation: Family Current Living Situation Comment: with wifr and grandson Feels Safe at Home: Yes Assistive Devices: Oxygen - Continuous Allergies Allergies Allergy/AdvReac Type Severity Reaction Status Date / Time ibuprofen Allergy Intermediate HIVES Verified 03/12/22 15:57 Home Meds Home Medications Medication Instructions Recorded Confirmed albuterol sulfate 90 mcg/actuation 2 puff inhalation Q4 PRN Shortness 03/12/22 03/12/22 aerosol inhaler Of Breath Or Wheezing apixaban 5 mg tablet (Eliquis) 5 mg PO BID 03/12/22 03/12/22 atorvastatin 10 mg tablet 10 mg PO DAILY 03/12/22 03/12/22 budesonide-formoterol HFA 160 2 puff inhalation BID PRN 03/12/22 03/12/22 mcg-4.5 mcg/actuation aerosol Shortness Of Breath Or Wheezing inhaler bupropion HCl 300 mg 24 hr tablet, 300 mg PO QAM 03/12/22 03/12/22 extended release buspirone 5 mg tablet 7.5 mg PO TID 03/12/22 03/12/22 carbidopa 25 mg-levodopa 100 mg 1 tab PO .DAILY @ NOON 03/12/22 03/12/22 tablet carbidopa 25 mg-levodopa 100 mg 2 tab PO AMHS 03/12/22 03/12/22 tablet cyclobenzaprine 10 mg tablet 10 mg PO BID 03/12/22 03/12/22 finasteride 5 mg tablet 5 mg PO DAILY 03/12/22 03/12/22 furosemide 20 mg tablet 20 mg PO DAILY 03/12/22 03/12/22 hydroxyurea 500 mg capsule 1,000 mg PO .5XWEEK 03/12/22 03/12/22 lisinopril 5 mg tablet 5 mg PO DAILY 03/12/22 03/12/22 memantine 5 mg tablet 0 mg PO DAILY 03/12/22 03/12/22 metoprolol tartrate 25 mg tablet 12.5 mg PO BID 03/12/22 03/12/22 montelukast 10 mg tablet 10 mg PO DAILY 03/12/22 03/12/22 pantoprazole 40 mg tablet,delayed 40 mg PO DAILY 03/12/22 03/12/22 release prazosin 5 mg capsule 5 mg PO HS 03/12/22 03/12/22 pregabalin 150 mg capsule 150 mg PO BID 03/12/22 03/12/22 sertraline 100 mg tablet 100 mg PO BID 03/12/22 03/12/22 tiotropium bromide 18 mcg capsule 1 cap inhalation DAILY PRN 03/12/22 03/12/22 with inhalation device (Spiriva Shortness Of Breath Or Wheezing with HandiHaler) trazodone 150 mg tablet 150 mg PO HS 03/12/22 03/12/22 Results & Data (ED) Vital Signs Vital Signs - 24 hr 03/12/22 11:46 03/12/22 11:46 03/12/22 12:26 Temperature 37 C Temperature Source Oral Pulse Rate 86 84 Pulse Rate [Left Apical] Pulse Rate from SpO2 Sensor Pulse Rhythm Regular Pulse Rhythm [Left Apical] Pulse Strength Normal Pulse Strength [Left Apical] Respiratory Rate 26 H Respiratory Effort / Characteristics Spontaneous Labored Short of Breath Respiratory Depth Normal Normal Respiratory Pattern Tachypnea Regular Blood Pressure 117/75 Blood Pressure [Left Arm] Blood Pressure Mean 89 Blood Pressure Mean [Left Arm] Blood Pressure Position Sitting Blood Pressure Position [Left Arm] Pulse Oximetry 100 100 Oxygen Delivery Method BiPAP BiPAP BiPAP Oxygen Flow Rate Fraction of Inspired Oxygen 50 50 SaO2/FiO2 Ratio 200 Sepsis Recent Fever Within 48 Hours Yes Sepsis New/Unexplained Change in Mental Status No Sepsis Action Taken by Nursing No Action Required 03/12/22 12:27 03/12/22 12:27 03/12/22 12:37 Temperature Temperature Source Pulse Rate Pulse Rate [Left Apical] 85 83 Pulse Rate from SpO2 Sensor Pulse Rhythm Pulse Rhythm [Left Apical] Regular Pulse Strength Pulse Strength [Left Apical] Normal Respiratory Rate 27 H 23 Respiratory Effort / Characteristics Non-Labored Spontaneous Respiratory Depth Normal Respiratory Pattern Regular Blood Pressure Blood Pressure [Left Arm] 117/75 95/71 L Blood Pressure Mean Blood Pressure Mean [Left Arm] 89 79 Blood Pressure Position Blood Pressure Position [Left Arm] Lying Pulse Oximetry 100 100 100 Oxygen Delivery Method BiPAP BiPAP BiPAP Oxygen Flow Rate Fraction of Inspired Oxygen 50 50 50 SaO2/FiO2 Ratio 200 200 Sepsis Recent Fever Within 48 Hours Sepsis New/Unexplained Change in Mental Status Sepsis Action Taken by Nursing 03/12/22 12:24 03/12/22 13:01 03/12/22 13:01 Temperature Temperature Source Pulse Rate 85 85 Pulse Rate [Left Apical] Pulse Rate from SpO2 Sensor Pulse Rhythm Pulse Rhythm [Left Apical] Pulse Strength Pulse Strength [Left Apical] Respiratory Rate 26 H 19 Respiratory Effort / Characteristics Spontaneous Respiratory Depth Normal Respiratory Pattern Blood Pressure 115/68 Blood Pressure [Left Arm] Blood Pressure Mean 83 Blood Pressure Mean [Left Arm] Blood Pressure Position Blood Pressure Position [Left Arm] Pulse Oximetry 100 98 Oxygen Delivery Method BiPAP Oxygen Flow Rate Fraction of Inspired Oxygen 40 50 SaO2/FiO2 Ratio Sepsis Recent Fever Within 48 Hours Sepsis New/Unexplained Change in Mental Status Sepsis Action Taken by Nursing 03/12/22 13:32 03/12/22 14:31 03/12/22 16:00 Temperature Temperature Source Pulse Rate 85 Pulse Rate [Left Apical] 84 81 Pulse Rate from SpO2 Sensor 85 Pulse Rhythm Pulse Rhythm [Left Apical] Regular Pulse Strength Pulse Strength [Left Apical] Normal Respiratory Rate 22 22 20 Respiratory Effort / Characteristics Non-Labored Spontaneous Non-Labored Spontaneous Respiratory Depth Normal Normal Respiratory Pattern Blood Pressure 142/58 H Blood Pressure [Left Arm] 123/72 115/69 Blood Pressure Mean 86 Blood Pressure Mean [Left Arm] 89 84 Blood Pressure Position Blood Pressure Position [Left Arm] Pulse Oximetry 100 96 99 Oxygen Delivery Method BiPAP Nasal Cannula Nebulizer Oxygen Flow Rate 4 9 Fraction of Inspired Oxygen 50 SaO2/FiO2 Ratio 200 Sepsis Recent Fever Within 48 Hours Sepsis New/Unexplained Change in Mental Status Sepsis Action Taken by Nursing 03/12/22 16:30 Temperature Temperature Source Pulse Rate 106 H Pulse Rate [Left Apical] Pulse Rate from SpO2 Sensor 105 H Pulse Rhythm Pulse Rhythm [Left Apical] Pulse Strength Pulse Strength [Left Apical] Respiratory Rate 31 H Respiratory Effort / Characteristics Respiratory Depth Respiratory Pattern Blood Pressure 142/58 H Blood Pressure [Left Arm] Blood Pressure Mean 86 Blood Pressure Mean [Left Arm] Blood Pressure Position Blood Pressure Position [Left Arm] Pulse Oximetry 100 Oxygen Delivery Method Oxygen Flow Rate Fraction of Inspired Oxygen SaO2/FiO2 Ratio Sepsis Recent Fever Within 48 Hours Sepsis New/Unexplained Change in Mental Status Sepsis Action Taken by Nursing Laboratory Data 03/12/22 12:15 03/12/22 12:15 Lab Results 03/12/22 03/12/22 03/12/22 Range/Units 12:15 12:15 12:15 WBC 7.26 (4.8-10.8) K/ul RBC 4.40 L (4.63-6.08) M/uL Hgb 12.9 L (14.0-18.0) g/dl Hct 40.3 (40.1-51.0) % MCV 91.6 (80.0-100.0) fL MCH 29.3 (25.0-34.0) pg MCHC 32.0 (32.0-36.0) g/dL RDW Std Deviation 50.5 H (36.4-46.3) fL RDW Coeff of Hector 15.3 H (11.5-14.5) % Plt Count 151 (130-400) K/uL MPV 10.5 (9.4-12.4) fL Immature Gran % (Auto) 0.8 % Neut % (Auto) 79.7 % Lymph % (Auto) 9.2 % [place] % (Auto) 9.9 % Eos % (Auto) 0.1 % Baso % (Auto) 0.3 % Neut # (Auto) 5.78 (1.4-6.5) K/uL Lymph # (Auto) 0.67 L (1.2-3.4) K/uL [place] # (Auto) 0.72 (0.24-0.82) K/uL Eos # (Auto) 0.01 (0-0.50) K/uL Baso # (Auto) 0.02 (0-0.2) K/uL Immature Gran # (Auto) 0.06 H (0.00-0.02) K/uL PT 12.4 H (9.0-12.0) Seconds INR 1.2 H (0.9-1.1) APTT 39.1 H (21.0-31.0) Seconds PTT Ratio 1.4 ABG pH (7.35-7.45) ABG pCO2 (35-46) mmHg ABG pO2 (80-95) mmHg ABG HCO3 (19-24) mmol/L ABG O2 Saturation (90-95) % ABG Base Excess (-9-1.8) mEq/L John Test (Pos) Oxygen Given Sodium 133 L (136-145) mmol/L Potassium 4.2 (3.5-5.1) mmol/L Chloride 96 L (98-107) mmol/L Carbon Dioxide 29 (21-32) mmol/L Anion Gap 8 (3-11) BUN 22 (6-23) mg/dl Creatinine 1.52 H (0.6-1.4) mg/dl Est Cr Clr Drug Dosing 45.9 ml/min Est GFR ( Amer) 51.6 ml/min Est GFR (Non-Af Amer) 44.5 ml/min BUN/Creatinine Ratio 14.5 (10-20) Glucose 106 H (70-99(Fasting)) mg/dl Calcium 9.2 (8.5-10.1) mg/dl Magnesium 1.6 L (1.7-2.4) mg/dl Total Bilirubin 1.1 H (0.2-1.0) mg/dl AST 15 (13-39) U/L ALT 3 L (7-52) U/L Alkaline Phosphatase 64 (34-104) U/L Troponin I High Sens 6.4 (0-20) pg/ml B-Natriuretic Peptide (0-100) pg/ml Total Protein 7.7 (6.0-8.3) gm/dl Albumin 4.1 (3.4-5.0) gm/dl Globulin 3.6 (2.5-4.0) gm/dl Albumin/Globulin Ratio 1.1 (0.9-2) Procalcitonin (0-0.5) ng/ml SARS-CoV-2 (PCR) (Negative) Influenza Type A (PCR) (Neg) Influenza Type B (PCR) (Neg) RSV (RT-PCR) (Neg) 03/12/22 03/12/22 03/12/22 Range/Units 12:15 12:15 12:15 WBC (4.8-10.8) K/ul RBC (4.63-6.08) M/uL Hgb (14.0-18.0) g/dl Hct (40.1-51.0) % MCV (80.0-100.0) fL MCH (25.0-34.0) pg MCHC (32.0-36.0) g/dL RDW Std Deviation (36.4-46.3) fL RDW Coeff of Hector (11.5-14.5) % Plt Count (130-400) K/uL MPV (9.4-12.4) fL Immature Gran % (Auto) % Neut % (Auto) % Lymph % (Auto) % [place] % (Auto) % Eos % (Auto) % Baso % (Auto) % Neut # (Auto) (1.4-6.5) K/uL Lymph # (Auto) (1.2-3.4) K/uL [place] # (Auto) (0.24-0.82) K/uL Eos # (Auto) (0-0.50) K/uL Baso # (Auto) (0-0.2) K/uL Immature Gran # (Auto) (0.00-0.02) K/uL PT (9.0-12.0) Seconds INR (0.9-1.1) APTT (21.0-31.0) Seconds PTT Ratio ABG pH (7.35-7.45) ABG pCO2 (35-46) mmHg ABG pO2 (80-95) mmHg ABG HCO3 (19-24) mmol/L ABG O2 Saturation (90-95) % ABG Base Excess (-9-1.8) mEq/L John Test (Pos) Oxygen Given Sodium (136-145) mmol/L Potassium (3.5-5.1) mmol/L Chloride (98-107) mmol/L Carbon Dioxide (21-32) mmol/L Anion Gap (3-11) BUN (6-23) mg/dl Creatinine (0.6-1.4) mg/dl Est Cr Clr Drug Dosing ml/min Est GFR ( Amer) ml/min Est GFR (Non-Af Amer) ml/min BUN/Creatinine Ratio (10-20) Glucose (70-99(Fasting)) mg/dl Calcium (8.5-10.1) mg/dl Magnesium (1.7-2.4) mg/dl Total Bilirubin (0.2-1.0) mg/dl AST (13-39) U/L ALT (7-52) U/L Alkaline Phosphatase (34-104) U/L Troponin I High Sens (0-20) pg/ml B-Natriuretic Peptide 240 H (0-100) pg/ml Total Protein (6.0-8.3) gm/dl Albumin (3.4-5.0) gm/dl Globulin (2.5-4.0) gm/dl Albumin/Globulin Ratio (0.9-2) Procalcitonin 0.07 (0-0.5) ng/ml SARS-CoV-2 (PCR) NEGATIVE (Negative) Influenza Type A (PCR) Positive A* (Neg) Influenza Type B (PCR) Negative (Neg) RSV (RT-PCR) Negative (Neg) 03/12/22 Range/Units 15:06 WBC (4.8-10.8) K/ul RBC (4.63-6.08) M/uL Hgb (14.0-18.0) g/dl Hct (40.1-51.0) % MCV (80.0-100.0) fL MCH (25.0-34.0) pg MCHC (32.0-36.0) g/dL RDW Std Deviation (36.4-46.3) fL RDW Coeff of Hector (11.5-14.5) % Plt Count (130-400) K/uL MPV (9.4-12.4) fL Immature Gran % (Auto) % Neut % (Auto) % Lymph % (Auto) % [place] % (Auto) % Eos % (Auto) % Baso % (Auto) % Neut # (Auto) (1.4-6.5) K/uL Lymph # (Auto) (1.2-3.4) K/uL [place] # (Auto) (0.24-0.82) K/uL Eos # (Auto) (0-0.50) K/uL Baso # (Auto) (0-0.2) K/uL Immature Gran # (Auto) (0.00-0.02) K/uL PT (9.0-12.0) Seconds INR (0.9-1.1) APTT (21.0-31.0) Seconds PTT Ratio ABG pH 7.38 (7.35-7.45) ABG pCO2 47 H (35-46) mmHg ABG pO2 38 L (80-95) mmHg ABG HCO3 28 H (19-24) mmol/L ABG O2 Saturation 62.3 L (90-95) % ABG Base Excess 2.0 H (-9-1.8) mEq/L John Test Pos (Pos) Oxygen Given 9 Sodium (136-145) mmol/L Potassium (3.5-5.1) mmol/L Chloride (98-107) mmol/L Carbon Dioxide (21-32) mmol/L Anion Gap (3-11) BUN (6-23) mg/dl Creatinine (0.6-1.4) mg/dl Est Cr Clr Drug Dosing ml/min Est GFR ( Amer) ml/min Est GFR (Non-Af Amer) ml/min BUN/Creatinine Ratio (10-20) Glucose (70-99(Fasting)) mg/dl Calcium (8.5-10.1) mg/dl Magnesium (1.7-2.4) mg/dl Total Bilirubin (0.2-1.0) mg/dl AST (13-39) U/L ALT (7-52) U/L Alkaline Phosphatase (34-104) U/L Troponin I High Sens (0-20) pg/ml B-Natriuretic Peptide (0-100) pg/ml Total Protein (6.0-8.3) gm/dl Albumin (3.4-5.0) gm/dl Globulin (2.5-4.0) gm/dl Albumin/Globulin Ratio (0.9-2) Procalcitonin (0-0.5) ng/ml SARS-CoV-2 (PCR) (Negative) Influenza Type A (PCR) (Neg) Influenza Type B (PCR) (Neg) RSV (RT-PCR) (Neg) Administered Medications Discontinued Medications Albuterol (Albut/Ipratrop 3mg/0.5mg Neb 3 Ml Vial) 3 ml NEB NOW STA; Protocol Stop: 03/12/22 12:19 Last Admin: 03/12/22 12:34 Dose: 3 ml Documented By: TW Albuterol (Albut/Ipratrop 3mg/0.5mg Neb 3 Ml Vial) 12 ml NEB ONE ONE; Protocol Stop: 03/12/22 15:18 Last Admin: 03/12/22 15:55 Dose: 12 ml Documented By: MT Magnesium Sulfate/Dextrose (Magnesium Sulfate / D5w) 1 gm in 100 mls @ 50 mls/hr IV Q2H MARIBETH Stop: 03/12/22 18:14 Last Admin: 03/12/22 15:58 Dose: 50 mls/hr Documented By: Infusion: 03/12/22 15:58 Dose: 50 mls/hr Documented By: Admin: 03/12/22 14:33 Dose: 50 mls/hr Documented By: VELIA Methylprednisolone (Methylprednisolone 125 Mg/2 Ml Vial) 60 mg IV NOW STA Stop: 03/12/22 12:19 Last Admin: 03/12/22 12:34 Dose: 60 mg Documented By: TW Oseltamivir Phosphate (Oseltamivir Phosphate 75 Mg Cap) 75 mg PO NOW STA; Protocol Stop: 03/12/22 14:01 Last Admin: 03/12/22 14:33 Dose: 75 mg Documented By: VELIA Imaging Data Radiologist's Impression: Chest X-Ray 03/12/22 12:15 XR chest 1V portable CLINICAL HISTORY: Dyspnea TECHNIQUE: Single frontal radiograph of the chest was obtained. Comparison: Comparison is made to chest radiograph 05/29/2020 FINDINGS: No lines and tubes are seen. The cardiomediastinal silhouette is stable. The lungs are clear. No evidence of pleural effusion or pneumothorax. IMPRESSION: No acute abnormalities and in particular no evidence of pneumonia. ACT 112: Negative or not required by law. Electronically signed by: Luis Carlos Garcia M.D. 03/12/2022 12:31 PM Discharge Plan Visit Data Chief Complaint: Respiratory Distress ED Provider: Jeffery Vazquez Discharge Problem: Acute on chronic respiratory failure with hypoxia, Acute exacerbation of chronic obstructive pulmonary disease, Influenza A, Weakness, Chest pain Patient Disposition: Admitted As Inpatient Forms Stand Alone Forms: [facility] Prescriptions Prescriptions: No Action cyclobenzaprine 10 mg Tablet 10 mg PO BID buspirone [BuSpar] 5 mg Tablet 7.5 mg PO TID hydroxyurea 500 mg Capsule 1,000 mg PO .[id number] Rx Instructions: Take once a day on week days. atorvastatin 10 mg Tablet 10 mg PO DAILY sertraline 100 mg Tablet 100 mg PO BID prazosin 5 mg Capsule 5 mg PO HS pantoprazole 40 mg Tablet,Delayed Release (Dr/Ec) 40 mg PO DAILY trazodone 150 mg Tablet 150 mg PO HS montelukast 10 mg Tablet 10 mg PO DAILY lisinopril 5 mg Tablet 5 mg PO DAILY furosemide 20 mg Tablet 20 mg PO DAILY carbidopa-levodopa 25-100 mg Tablet 2 tab PO AMHS carbidopa-levodopa 25-100 mg Tablet 1 tab PO .DAILY @ NOON finasteride 5 mg Tablet 5 mg PO DAILY bupropion HCl 300 mg Tablet Extended Release 24 Hr 300 mg PO QAM memantine 5 mg Tablet 0 mg PO DAILY metoprolol tartrate 25 mg Tablet 12.5 mg PO BID Eliquis 5 mg Tablet 5 mg PO BID pregabalin 150 mg Capsule 150 mg PO BID albuterol sulfate 90 mcg/actuation Hfa Aerosol Inhaler 2 puff INHALATION Q4 PRN (Reason: Shortness Of Breath Or Wheezing) Spiriva with HandiHaler 18 mcg Capsule, W/Inhalation Device 1 cap INHALATION DAILY PRN (Reason: Shortness Of Breath Or Wheezing) Rx Instructions: puncture 1 cap using device; one dose = 2 inhalations budesonide-formoterol 160-4.5 mcg/actuation Hfa Aerosol Inhaler 2 puff INHALATION BID PRN (Reason: Shortness Of Breath Or Wheezing) Referrals Referrals: Taylor Brannon M.D. [Primary Care Provider] -
[2022-03-12 12:32] LABS: Basophils # (auto) 0.02 K/uL (0-0.2); Basophils % (auto) 0.3 %; Eosinophils # (auto) 0.01 K/uL (0-0.50); Eosinophils % (auto) 0.1 %; Hematocrit (blood only) 40.3 % (40.1-51.0); Hemoglobin 12.9 g/dl (14.0-18.0); Immature Granulocytes # (auto) 0.06 K/uL (0.00-0.02); Immature Granulocytes % (auto) 0.8 %; Lymphocytes # (auto) 0.67 K/uL (1.2-3.4); Lymphocytes % (auto) 9.2 %; Mean Corpuscular Hemoglobin 29.3 pg (25.0-34.0); Mean Corpuscular Volume 91.6 fL (80.0-100.0); Mean Platelet Volume 10.5 fL (9.4-12.4); Monocytes # (auto) 0.72 K/uL (0.24-0.82); Monocytes % (auto) 9.9 %; Neutrophils # (auto) 5.78 K/uL (1.4-6.5); Neutrophils % (auto) 79.7 %; Platelet Count 151 K/uL (130-400); RDW Coefficient of Variation 15.3 % (11.5-14.5); RDW Standard Deviation 50.5 fL (36.4-46.3); White Blood Count 7.26 K/ul (4.8-10.8)
--- NOTE | 2022-03-12 12:32 | XRay Report ---
XR chest 1V portable CLINICAL HISTORY: Dyspnea TECHNIQUE: Single frontal radiograph of the chest was obtained. Comparison: Comparison is made to chest radiograph 05/29/2020 FINDINGS: No lines and tubes are seen. The cardiomediastinal silhouette is stable. The lungs are clear. No evid ence of pleural effusion or pneumothorax. IMPRESSION: No acute abnormalities and in particular no evidence of pneumonia. ACT 112: Negative or not required by law. Electronically signed by: Luis Carlos Garcia M.D. 03/12/2022 12:31 PM
[2022-03-12 12:47] LABS: INR 1.2 (0.9-1.1); Partial Thromboplastin Ratio 1.4; Partial Thromboplastin Time 39.1 Seconds (21.0-31.0); Prothrombin Time 12.4 Seconds (9.0-12.0)
[2022-03-12 12:57] LABS: Albumin Globulin Ratio 1.1 (0.9-2); Albumin Level 4.1 gm/dl (3.4-5.0); BUN Creatinine Ratio 14.5 (10-20); Bilirubin,Total 1.1 mg/dl (0.2-1.0); Calcium 9.2 mg/dl (8.5-10.1); Creatinine Clr Calc Pharmacy 45.9 ml/min; Est GFR (African American) 51.6 ml/min; Est GFR (Non-African American) 44.5 ml/min; Globulin 3.6 gm/dl (2.5-4.0); Magnesium 1.6 mg/dl (1.7-2.4); Potassium 4.2 mmol/L (3.5-5.1); Total Protein 7.7 gm/dl (6.0-8.3)
[2022-03-12 12:59] LABS: Troponin I High Sensitivity 6.4 pg/ml (0-20)
[2022-03-12 13:29] LABS: Influenza A virus by PCR Positive (Neg); Influenza B virus by PCR Negative (Neg); RSV by PCR Negative (Neg)
[2022-03-12] MEDS ORDERED: OSELTAMIVIR PHOSPHATE 75 MG CAP PO STA (14:00)
[2022-03-12 14:02] LABS: SARS CoV2 RNA(COVID-19) Ceph NEGATIVE (Negative)
--- NOTE | 2022-03-12 14:13 | History & Physical Report ---
Date of Service March 12, 2022 Assessment & Plan (1) COPD exacerbation: Plan: Secondary to influenza Solu-Medrol 40 mg IV twice daily DuoNebs 4 times daily Perforomist twice daily Budesonide nebulizer twice daily Azithromycin 500 mg now then 250 mg p.o. daily for 4 days (2) Influenza A: Plan: Droplet isolation precautions Tamiflu 75 mg p.o. twice daily (3) Acute respiratory failure with hypoxia: Plan: ABG Aim O2 sats 88-92% (4) HTN (hypertension): Plan: Continue his home medication regimen with furosemide 20 mg p.o. daily, lisinopril 5 mg p.o. daily, metoprolol tartrate 12.5 mg p.o. twice daily (5) VIK on CPAP: Plan: Non compliant with CPAP at home Will start on BiPAP HS during his admission (6) Paroxysmal atrial fibrillation: Plan: Continue anticoagulation with apixaban 5 mg p.o. twice daily Currently in normal sinus rhythm (7) PTSD (post-traumatic stress disorder): Plan: Do not wake patient by touching, only saying his name Continue sertraline, prazosin, bupropion Plan VTE prophylaxis -Eliquis as above Diet - heart healthy Disposition - admit to PCU Admission and Anticipated Discharge Date Admission Date: March 12, 2022 History of Present Illness Chief Complaint: Shortness of breath Primary Care Provider: Taylor Brannon Edsabine De Los Santos is a 76 year old male with COPD who presents to the ER via EMS with respiratory distress. 2 days of productive cough with green/yellow sputum, chest tightness, shortness of breath. O2 sat 78% on room air on arrival by EMS. Fever last night. No chest pain, sinus pain, nasal congestion, abdominal pain, diarrhea, headache, urinary symptoms. In the ER he tested positive for influenza A which was treated with Tamiflu 75 mg p.o. He was given DuoNeb with good effect and improvement in his breathing. Due to work of breathing he was placed on BiPAP. He was referred to medicine for admission ongoing management of COPD exacerbation and influenza a. Allergies Allergy/AdvReac Type Severity Reaction Status Date / Time ibuprofen Allergy Intermediate HIVES Verified 03/12/22 15:57 Home Medications Medication Instructions Recorded Confirmed Type albuterol sulfate 90 mcg/actuation 2 puff inhalation Q4 PRN Shortness 03/12/22 03/12/22 History aerosol inhaler Of Breath Or Wheezing apixaban 5 mg tablet (Eliquis) 5 mg PO BID 03/12/22 03/12/22 History atorvastatin 10 mg tablet 10 mg PO DAILY 03/12/22 03/12/22 History budesonide-formoterol HFA 160 2 puff inhalation BID PRN 03/12/22 03/12/22 History mcg-4.5 mcg/actuation aerosol Shortness Of Breath Or Wheezing inhaler bupropion HCl 300 mg 24 hr tablet, 300 mg PO QAM 03/12/22 03/12/22 History extended release buspirone 5 mg tablet 7.5 mg PO TID 03/12/22 03/12/22 History carbidopa 25 mg-levodopa 100 mg 1 tab PO .DAILY @ NOON 03/12/22 03/12/22 History tablet carbidopa 25 mg-levodopa 100 mg 2 tab PO AMHS 03/12/22 03/12/22 History tablet cyclobenzaprine 10 mg tablet 10 mg PO BID 03/12/22 03/12/22 History finasteride 5 mg tablet 5 mg PO DAILY 03/12/22 03/12/22 History furosemide 20 mg tablet 20 mg PO DAILY 03/12/22 03/12/22 History hydroxyurea 500 mg capsule 1,000 mg PO .5XWEEK 03/12/22 03/12/22 History lisinopril 5 mg tablet 5 mg PO DAILY 03/12/22 03/12/22 History memantine 5 mg tablet 0 mg PO DAILY 03/12/22 03/12/22 History metoprolol tartrate 25 mg tablet 12.5 mg PO BID 03/12/22 03/12/22 History montelukast 10 mg tablet 10 mg PO DAILY 03/12/22 03/12/22 History pantoprazole 40 mg tablet,delayed 40 mg PO DAILY 03/12/22 03/12/22 History release prazosin 5 mg capsule 5 mg PO HS 03/12/22 03/12/22 History pregabalin 150 mg capsule 150 mg PO BID 03/12/22 03/12/22 History sertraline 100 mg tablet 100 mg PO BID 03/12/22 03/12/22 History tiotropium bromide 18 mcg capsule 1 cap inhalation DAILY PRN 03/12/22 03/12/22 History with inhalation device (Spiriva Shortness Of Breath Or Wheezing with HandiHaler) trazodone 150 mg tablet 150 mg PO HS 03/12/22 03/12/22 History Past Med/Surg History Medical History Asthma BPH (benign prostatic hyperplasia) Chronic bronchitis Closed fracture dislocation of ankle DDD (degenerative disc disease) Diverticulitis HTN (hypertension) Intractable back pain MRSA (methicillin resistant Staphylococcus aureus) negative nasal swab on 06/24/15 and 10/05/18 Obesity Open wound of ankle with complication VIK on CPAP Noncompliant Prolonged QT interval SYh=987 EKG 05/25/19 PTSD (post-traumatic stress disorder) do not wake patient by touching, wake patient by saying name Surgical History History of back surgery back surgery x3 at [facility] History of partial colectomy S/P hernia repair Status post ORIF of fracture of ankle 05/26/[address] [facility] with sedation. Family History Other Family history non-contributory Social History Smoking Status: Former smoker Tobacco Type: Smokeless Tobacco (Dip or Chew) Second Hand Exposure: No; Hx Alcohol Use: Yes Alcohol type: beer Hx Substance Use: No Preferred Language: Bengali Communication Ability: Effective Sectionizer Required: No Beliefs That Will Affect Care: None marital status: Current Living Situation: Family Current Living Situation Comment: with wifr and grandson Feels Safe at Home: Yes Assistive Devices: Oxygen - Continuous Review of Systems Review of Systems: All systems reviewed & are unremarkable except as noted in HPI & below Physical Exam Constitutional: well developed and + acute distress; + not well nourished Eyes: + anicteric sclerae; normal pupil size Respiratory: + respiratory distress, + labored breathing, + uses accessory muscles, + cough, able to speak in complete sentences, + prolonged expiratory phase and + pursed lip breathing; + abnormal respiratory effort and no stridor Auscultation: + wheezes (expiratory throughout); breath sounds present, no diminished lung sounds, no crackles, no rales and no rhonchi Cardiovascular: Rate/Rhythm: regular rate and regular rhythm Heart Sounds: no murmur Extremities: normal capillary refill; no calf tenderness and no pedal edema Gastrointestinal (Abdomen): normal bowel sounds, soft, nontender, no hepatosplenomegaly Skin: no rashes, warm and dry Psychiatric: A+Ox3, euthymic affect Results & Data Results & Data ([facility]) Vital Signs (Past 12 Hours) Vital Signs Temp Pulse Pulse Resp BP BP Pulse Ox 03/12/22 13:32 84 22 123/72 100 03/12/22 13:01 85 19 98 03/12/22 13:01 115/68 03/12/22 12:24 85 26 H 100 03/12/22 12:37 83 23 95/71 L 100 03/12/22 12:27 100 03/12/22 12:27 85 27 H 117/75 100 03/12/22 12:26 84 100 03/12/22 11:46 37 C 86 26 H 117/75 100 03/12/22 11:46 O2 Del Method FiO2 03/12/22 13:32 BiPAP 50 03/12/22 13:01 BiPAP 50 03/12/22 13:01 03/12/22 12:24 40 03/12/22 12:37 BiPAP 50 03/12/22 12:27 BiPAP 50 03/12/22 12:27 BiPAP 50 03/12/22 12:26 BiPAP 03/12/22 11:46 BiPAP 50 03/12/22 11:46 BiPAP 50 Laboratory Results Abnormal lab results 03/12/22 03/12/22 03/12/22 Range/Units 12:15 12:15 12:15 RBC 4.40 L (4.63-6.08) M/uL Hgb 12.9 L (14.0-18.0) g/dl RDW Std Deviation 50.5 H (36.4-46.3) fL RDW Coeff of Hector 15.3 H (11.5-14.5) % Lymph # (Auto) 0.67 L (1.2-3.4) K/uL Immature Gran # (Auto) 0.06 H (0.00-0.02) K/uL PT 12.4 H (9.0-12.0) Seconds INR 1.2 H (0.9-1.1) APTT 39.1 H (21.0-31.0) Seconds Sodium 133 L (136-145) mmol/L Chloride 96 L (98-107) mmol/L Creatinine 1.52 H (0.6-1.4) mg/dl Glucose 106 H (70-99(Fasting)) mg/dl Magnesium 1.6 L (1.7-2.4) mg/dl Total Bilirubin 1.1 H (0.2-1.0) mg/dl ALT 3 L (7-52) U/L B-Natriuretic Peptide (0-100) pg/ml Influenza Type A (PCR) (Neg) 03/12/22 03/12/22 Range/Units 12:15 12:15 RBC (4.63-6.08) M/uL Hgb (14.0-18.0) g/dl RDW Std Deviation (36.4-46.3) fL RDW Coeff of Hector (11.5-14.5) % Lymph # (Auto) (1.2-3.4) K/uL Immature Gran # (Auto) (0.00-0.02) K/uL PT (9.0-12.0) Seconds INR (0.9-1.1) APTT (21.0-31.0) Seconds Sodium (136-145) mmol/L Chloride (98-107) mmol/L Creatinine (0.6-1.4) mg/dl Glucose (70-99(Fasting)) mg/dl Magnesium (1.7-2.4) mg/dl Total Bilirubin (0.2-1.0) mg/dl ALT (7-52) U/L B-Natriuretic Peptide 240 H (0-100) pg/ml Influenza Type A (PCR) Positive A* (Neg) Diagnostic Findings XR chest 1V portable CLINICAL HISTORY: Dyspnea TECHNIQUE: Single frontal radiograph of the chest was obtained. Comparison: Comparison is made to chest radiograph 05/29/2020 FINDINGS: No lines and tubes are seen. The cardiomediastinal silhouette is stable. The lungs are clear. No evidence of pleural effusion or pneumothorax. IMPRESSION: No acute abnormalities and in particular no evidence of pneumonia. Medications Administered ER medications given: Solu-Medrol 60 mg IV DuoNeb 3 mL nebulizer Tamiflu 75 mg p.o. ECG Rate (beats per minute): 85 Rhythm: normal sinus Findings: + nonspecific-ST abn Comparison ECG Date: from (June 08, 2020) Change: the following changes noted (Sinus rhythm replaced electronic atrial pacemaker) Code Status & VTE Plan Code Status DNR/DNI VTE Prophylaxis Plan VTE Prophylaxis will be ordered: Yes PG Care Time/CCT Total # of Minutes Spent Total Time Spent with Patient: Total time spent is greater than 50% in coordination of care (as documented) at patient's floor/unit and/or counseling patient: Coding Level of Care Code 24653 INT INP/OBS CARE 3/75MIN Diagnoses COPD exacerbation J44.1 Influenza A J10.1 Acute respiratory failure with hypoxia J96.01 HTN (hypertension) I10 Hypertension type: essential hypertension VIK on CPAP G47.33; Z99.89 Paroxysmal atrial fibrillation I48.0 PTSD (post-traumatic stress disorder) F43.10 (1) HTN (hypertension) Hypertension type: essential hypertension Qualified Code(s): I10 - Essential (primary) hypertension
[2022-03-12] MEDS: MAGNESIUM SULFATE / D5W 1 GM/100 ML BAG IV SCH ×2 (14:33→15:58)
[2022-03-12] MEDS ORDERED: ALBUT/IPRATROP 3MG/0.5MG NEB 3 ML VIAL NEB ONE (15:17)
[2022-03-12 15:22] LABS: HCO3 ABG 28 mmol/L (19-24); Oxygen Saturation ABG 62.3 % (90-95); PCO2 ABG 47 mmHg (35-46); PO2 ABG 38 mmHg (80-95); pH ABG 7.38 (7.35-7.45)
[2022-03-12 16:00] LABS: Allen Test Pos (Pos)
[2022-03-12] MEDS ORDERED: AZITHROMYCIN 500 MG in DEXTROSE 5% 250 ML IV STA (17:04)
[2022-03-12] MEDS: BUDESONIDE 0.5 MG/2 ML VIAL (PULMICORT) NEB SCH (20:49)
[2022-03-12] MEDS: FORMOTEROL 20 MCG/2 ML VIAL NEB SCH (20:49)
[2022-03-12] MEDS ORDERED: ALBUT/IPRATROP 3MG/0.5MG NEB 3 ML VIAL NEB PRN (21:03)
[2022-03-12] MEDS: ALBUT/IPRATROP 3MG/0.5MG NEB 3 ML VIAL NEB SCH (21:21)
[2022-03-12] MEDS: busPIRone 7.5 MG TAB PO SCH (21:52)
[2022-03-12] MEDS: APIXABAN 5 MG TABLET PO SCH (21:52)
[2022-03-12] MEDS: CARBIDOPA/LEVODOPA 25/100MG TAB PO SCH (21:53)
[2022-03-12] MEDS: CYCLOBENZAPRINE HCL 10 MG TAB PO SCH (21:54)
[2022-03-12] MEDS: METOPROLOL TARTRATE 25 MG TAB PO SCH (21:55)
[2022-03-12] MEDS: PRAZOSIN HCL 1 MG CAP PO SCH (21:55)
[2022-03-12] MEDS: traZODone HCL 50 MG TAB PO SCH (21:56)
[2022-03-12] MEDS: OSELTAMIVIR PHOSPHATE SUSP 30 MG/5 ML UDP PO SCH (21:57)
[2022-03-12] MEDS: SERTRALINE HCL 100 MG TABLET PO SCH (21:57)
[2022-03-12] MEDS: PREGABALIN 75 MG CAP PO SCH (22:02)
[2022-03-13 06:12] LABS: Hematocrit (blood only) 34.2 % (40.1-51.0); Immature Granulocytes # (auto) 0.07 K/uL (0.00-0.02); Immature Granulocytes % (auto) 0.9 %; Lymphocytes # (auto) 0.31 K/uL (1.2-3.4); Lymphocytes % (auto) 4.2 %; Mean Corpuscular Hgb Conc 32.2 g/dL (32.0-36.0); Mean Corpuscular Volume 90.2 fL (80.0-100.0); Mean Platelet Volume 10.6 fL (9.4-12.4); Monocytes % (auto) 9.4 %; Neutrophils # (auto) 6.37 K/uL (1.4-6.5); Neutrophils % (auto) 85.5 %; Platelet Count 141 K/uL (130-400); RDW Coefficient of Variation 15.3 % (11.5-14.5); RDW Standard Deviation 49.9 fL (36.4-46.3); Red Blood Count 3.79 M/uL (4.63-6.08); White Blood Count 7.45 K/ul (4.8-10.8)
[2022-03-13 06:28] LABS: BUN Creatinine Ratio 24.3 (10-20); Calcium 8.6 mg/dl (8.5-10.1); Creatinine Clr Calc Pharmacy 60.3 ml/min; Est GFR (African American) 75.4 ml/min; Est GFR (Non-African American) 65.1 ml/min; Magnesium 2.3 mg/dl (1.7-2.4); Potassium 4.1 mmol/L (3.5-5.1)
--- NOTE | 2022-03-13 06:45 | Hospitalist Progress Note ---
Date of Service March 13, 2022 Assessment & Plan (1) Influenza A: (2) Acute respiratory failure with hypoxia: (3) HTN (hypertension): (4) VIK on CPAP: (5) Paroxysmal atrial fibrillation: (6) PTSD (post-traumatic stress disorder): (7) Asthma exacerbation: Plan #Asthma exacerbation -Patient has h/o allergic asthma dx back around [address] Pozo back on 05/2015 -Secondary to influenza -Solu-Medrol 40 mg IV twice daily, DuoNeb 4 times daily, Perforomist twice daily, and Budesonide nebulizer twice daily -Azithromycin 500 mg now then 250 mg p.o. daily for 4 days - unclear role in asthma - consider d/c in am #Influenza A -Droplet isolation precautions -Tamiflu 75 mg p.o. twice daily #Acute respiratory failure with hypoxia -ABG: showed what was most likely venous blood. May need to repeat in the future. -Aim O2 sats 88-92% #HTN (hypertension) -Continue his home medication regimen with furosemide 20 mg p.o. daily, lisinopril 5 mg p.o. daily, metoprolol tartrate 12.5 mg p.o. twice daily #VIK on CPAP -Non compliant with CPAP at home -BiPAP HS during his admission #Paroxysmal atrial fibrillation -Continue anticoagulation with apixaban 5 mg p.o. twice daily -Currently in normal sinus rhythm #PTSD (post-traumatic stress disorder): -Do not wake patient by touching, only saying his name -Continue sertraline, prazosin, bupropion Fluids: none Nutrition: heart healthy Code status: DNR/DNI DVT ppx: Eliquis Dispo: med/surg Thank you for allowing me to participate in the care of your patient. -Dr. Joel Bourgeois PGY1 Admission and Anticipated Discharge Date Admission Date: March 12, 2022 Supervising Physician Co-Signing Physician Notes Resident Physician Supervision Note: I independently interviewed and examined the patient and verified the weeks history and physical, reviewed labs and image studies and agree with resident findings and care plan. Subjective Patient is still having trouble with breathing. He c/o SOB, trouble with breathing, and orthopnea. States though that his breathing has improved since yesterday. Review of Systems Review of Systems: All systems reviewed & are unremarkable except as noted in HPI & below Physical Exam Constitutional: well developed and + acute distress; + not well nourished Eyes: + anicteric sclerae; normal pupil size Respiratory: + respiratory distress, + labored breathing, + uses accessory muscles, + cough, able to speak in complete sentences, + prolonged expiratory phase and + pursed lip breathing; + abnormal respiratory effort and no stridor Auscultation: + wheezes (expiratory throughout); breath sounds present, no diminished lung sounds, no crackles, no rales and no rhonchi Cardiovascular: Rate/Rhythm: regular rate and regular rhythm Heart Sounds: no murmur Extremities: normal capillary refill Gastrointestinal (Abdomen): normal bowel sounds, soft, nontender, no hepatosplenomegaly Musculoskeletal: Bilateral Below the knee amputations. Skin: no rashes, warm and dry Psychiatric: A+Ox3, euthymic affect Results & Data Results & Data ([facility]) Vital Signs (Past 12 Hours) Vital Signs Temp Pulse Pulse Resp BP Pulse Ox Pulse Ox 03/13/22 03:02 69 17 95 03/12/22 21:50 03/12/22 21:50 03/12/22 21:50 95 03/12/22 22:53 80 25 H 97 03/12/22 20:15 36.7 C 89 26 H 137/76 95 03/12/22 21:05 83 21 96 03/12/22 20:53 22 94 03/12/22 19:39 O2 Del Method O2 Del Method O2 Flow Rate O2 Flow Rate 03/13/22 03:02 4 03/12/22 21:50 Nasal Cannula, BiPAP 4 03/12/22 21:50 Nasal Cannula, BiPAP 4 03/12/22 21:50 Nasal Cannula, BiPAP 4 03/12/22 22:53 4 03/12/22 20:15 Nasal Cannula, BiPAP 4 03/12/22 21:05 4 03/12/22 20:53 Nasal Cannula 4 03/12/22 19:39 Nasal Cannula 4 Resident Activity Tracking Resident Involvement: Resident Care Provided Care Provided: Adult Hospital Medicine (1) HTN (hypertension) Hypertension type: essential hypertension Qualified Code(s): I10 - Essential (primary) hypertension
[2022-03-13] MEDS: BUDESONIDE 0.5 MG/2 ML VIAL (PULMICORT) NEB SCH ×2 (07:02→19:24)
[2022-03-13] MEDS: ALBUT/IPRATROP 3MG/0.5MG NEB 3 ML VIAL NEB SCH ×4 (07:02→19:24)
[2022-03-13] MEDS: FORMOTEROL 20 MCG/2 ML VIAL NEB SCH ×2 (07:02→19:23)
[2022-03-13 08:09] LABS: Appearance Urine Clear (Clear); Bilirubin Urine Negative (Negative); Blood Urine Negative (Negative); Color Urine Yellow; Glucose Urine UA Negative (Negative); Ketones Urine Negative (Negative); Leukocyte Esterase Urine Negative (Negative); Nitrite Urine Negative (Negative); Protein Urine Negative (Negative); Specific Gravity Urine 1.018 (1.000-1.030); Urobilinogen Urine Negative (Negative)
[2022-03-13] MEDS ORDERED: AZITHROMYCIN 500MG/255ML D5W IV SCH (09:00)
[2022-03-13] MEDS: OSELTAMIVIR PHOSPHATE SUSP 30 MG/5 ML UDP PO SCH ×2 (09:13→21:30)
[2022-03-13] MEDS: busPIRone 7.5 MG TAB PO SCH ×3 (09:14→21:23)
[2022-03-13] MEDS: ATORVASTATIN 10 MG TAB PO SCH (09:14)
[2022-03-13] MEDS: buPROPion XL 150 MG TABCR PO SCH (09:14)
[2022-03-13] MEDS: UMECLIDINIUM BROMIDE 62.5MCG/BLISTER 7 PUFFS/INHALER INH SCH (09:14)
[2022-03-13] MEDS: APIXABAN 5 MG TABLET PO SCH ×2 (09:14→21:23)
[2022-03-13] MEDS: PREGABALIN 75 MG CAP PO SCH ×2 (09:14→21:30)
[2022-03-13] MEDS: CARBIDOPA/LEVODOPA 25/100MG TAB PO SCH ×3 (09:15→21:24)
[2022-03-13] MEDS: FINASTERIDE 5 MG TAB PO SCH (09:15)
[2022-03-13] MEDS: FUROSEMIDE 20 MG TAB PO SCH (09:15)
[2022-03-13] MEDS: CYCLOBENZAPRINE HCL 10 MG TAB PO SCH ×2 (09:15→21:24)
[2022-03-13] MEDS: MEMANTINE HCL 5 MG TAB PO SCH ×2 (09:16→09:35)
[2022-03-13] MEDS: MONTELUKAST SODIUM 10 MG TABLET PO SCH (09:16)
[2022-03-13] MEDS: METOPROLOL TARTRATE 25 MG TAB PO SCH ×2 (09:16→21:25)
[2022-03-13] MEDS: lisinopril 5 MG TAB PO SCH (09:16)
[2022-03-13] MEDS: SERTRALINE HCL 100 MG TABLET PO SCH ×2 (09:17→21:27)
[2022-03-13] MEDS: methylPREDNISolone 40 MG in SYRINGE 0 ML IV SCH (09:17)
[2022-03-13] MEDS: PANTOprazole 40 MG TAB PO SCH (09:17)
[2022-03-13] MEDS ORDERED: AZITHROMYCIN 500 MG in DEXTROSE 5% 250 ML IV SCH (09:30)
[2022-03-13] MEDS: traZODone HCL 50 MG TAB PO SCH (21:26)
[2022-03-13] MEDS: PRAZOSIN HCL 1 MG CAP PO SCH (21:26)
--- NOTE | 2022-03-13 21:50 | Electrocardiogram Report ---
Test Reason : Blood Pressure : / mmHG Vent. Rate : 085 BPM Atrial Rate : 085 BPM P-R Int : 176 ms QRS Dur : 074 ms QT Int : 362 ms P-R-T Axes : -14 023 054 degrees QTc Int : 430 ms Normal sinus rhythm Nonspecific ST abnormality Abnormal ECG When compared with ECG of 08-JUN-2020 12:40, No significant change Confirmed by Rishabh Layton ([id number]) on 03/13/2022 9:49:51 PM Referred By: Confirmed By:Rishabh Layton
[2022-03-14] MEDS: ALBUT/IPRATROP 3MG/0.5MG NEB 3 ML VIAL NEB SCH ×4 (06:54→19:58)
[2022-03-14] MEDS: BUDESONIDE 0.5 MG/2 ML VIAL (PULMICORT) NEB SCH ×2 (06:55→19:38)
[2022-03-14] MEDS: FORMOTEROL 20 MCG/2 ML VIAL NEB SCH ×2 (06:55→19:38)
--- NOTE | 2022-03-14 07:02 | Hospitalist Progress Note ---
Date of Service March 14, 2022 Assessment & Plan (1) Influenza A: (2) Acute respiratory failure with hypoxia: (3) HTN (hypertension): (4) VIK on CPAP: (5) Paroxysmal atrial fibrillation: (6) PTSD (post-traumatic stress disorder): (7) Asthma exacerbation: Plan #Asthma exacerbation -Patient has h/o allergic asthma dx back around [address] Pozo back on 05/2015 -Secondary to influenza -Solu-Medrol 40 mg IV twice daily, DuoNeb 4 times daily, Perforomist twice daily, and Budesonide nebulizer twice daily -Azithromycin 500 mg given at time of admission, continue on 250 mg p.o. daily for 4 days. Will end on 03/17. -May need repeat PFT's as an outpatient. #Influenza A -Droplet isolation precautions -Tamiflu 75 mg p.o. twice daily for 5 days. Will end on 03/17. #Acute respiratory failure with hypoxia -ABG: showed what was most likely venous blood. May need to repeat in the future. -Aim O2 sats 88-92% #HTN (hypertension) -Continue his home medication regimen with furosemide 20 mg p.o. daily, lisinopril 5 mg p.o. daily, metoprolol tartrate 12.5 mg p.o. twice daily #VIK on CPAP -Non compliant with CPAP at home -BiPAP HS during his admission #Paroxysmal atrial fibrillation -Continue anticoagulation with apixaban 5 mg p.o. twice daily -Currently in normal sinus rhythm #PTSD (post-traumatic stress disorder): -Do not wake patient by touching, only saying his name -Continue sertraline, prazosin, bupropion Fluids: none Nutrition: heart healthy Code status: DNR/DNI DVT ppx: Eliquis Dispo: med/surg Thank you for allowing me to participate in the care of your patient. -Dr. Joel Bourgeois PGY1 Admission and Anticipated Discharge Date Admission Date: March 12, 2022 Supervising Physician Co-Signing Physician Notes I personally examined the patient and verified all weeks points of history and exam, discussed case, and agree with decision making with Dr Bourgeois. Feeling better but not quite good. Vitals noted, in general he is awake and alert pleasant no distress. Lungs are coarse with expiratory rhonchi and wheezing, but good air entry throughout. Flu and subsequent asthma exacerbationimproving. Continue current care. Otherwise as above Subjective Patient was seen bedside this AM. He states that his breathing is getting better. He feels wheezy and is SOB, though it is improved from the day before. Review of Systems Review of Systems: All systems reviewed & are unremarkable except as noted in HPI & below Physical Exam Constitutional: well developed and + acute distress; + not well nourished Eyes: + anicteric sclerae; normal pupil size Respiratory: + respiratory distress, + labored breathing, + uses accessory muscles, + cough, able to speak in complete sentences, + prolonged expiratory phase and + pursed lip breathing; + abnormal respiratory effort and no stridor Auscultation: + wheezes (expiratory throughout); breath sounds present, no diminished lung sounds, no crackles, no rales and no rhonchi Cardiovascular: Rate/Rhythm: regular rate and regular rhythm Heart Sounds: no murmur Extremities: normal capillary refill Gastrointestinal (Abdomen): normal bowel sounds, soft, nontender, no hepatosplenomegaly Musculoskeletal: Bilateral Below the knee amputations. Skin: no rashes, warm and dry Psychiatric: A+Ox3, euthymic affect Results & Data Results & Data ([facility]) Vital Signs (Past 12 Hours) Vital Signs Temp Pulse Resp BP Pulse Ox Pulse Ox O2 Del Method 03/14/22 06:55 70 20 98 Nasal Cannula 03/13/22 21:23 Nasal Cannula 03/13/22 21:23 95 03/13/22 21:49 85 20 95 Nasal Cannula 03/13/22 21:33 36.5 C 85 18 108/69 97 Nasal Cannula 03/13/22 19:24 89 20 90 Room Air O2 Del Method O2 Flow Rate O2 Flow Rate 03/14/22 06:55 2 03/13/22 21:23 2 03/13/22 21:23 Nasal Cannula, BiPAP 2 03/13/22 21:49 2 03/13/22 21:33 2 03/13/22 19:24 Resident Activity Tracking Resident Involvement: Resident Care Provided Care Provided: Adult Hospital Medicine (1) HTN (hypertension) Hypertension type: essential hypertension Qualified Code(s): I10 - Essential (primary) hypertension
[2022-03-14] MEDS: MONTELUKAST SODIUM 10 MG TABLET PO SCH (09:00)
[2022-03-14] MEDS: FUROSEMIDE 20 MG TAB PO SCH (09:01)
[2022-03-14] MEDS: MEMANTINE HCL 5 MG TAB PO SCH (09:01)
[2022-03-14] MEDS: ATORVASTATIN 10 MG TAB PO SCH (09:01)
[2022-03-14] MEDS: METOPROLOL TARTRATE 25 MG TAB PO SCH ×2 (09:01→19:39)
[2022-03-14] MEDS: buPROPion XL 150 MG TABCR PO SCH (09:01)
[2022-03-14] MEDS: HYDROXYUREA 500 MG CAP PO SCH (09:01)
[2022-03-14] MEDS: lisinopril 5 MG TAB PO SCH (09:01)
[2022-03-14] MEDS: PANTOprazole 40 MG TAB PO SCH (09:01)
[2022-03-14] MEDS: FINASTERIDE 5 MG TAB PO SCH (09:01)
[2022-03-14] MEDS: SERTRALINE HCL 100 MG TABLET PO SCH ×2 (09:01→19:43)
[2022-03-14] MEDS: busPIRone 7.5 MG TAB PO SCH ×3 (09:02→19:41)
[2022-03-14] MEDS: CYCLOBENZAPRINE HCL 10 MG TAB PO SCH ×2 (09:02→19:43)
[2022-03-14] MEDS: APIXABAN 5 MG TABLET PO SCH ×2 (09:02→19:42)
[2022-03-14] MEDS: CARBIDOPA/LEVODOPA 25/100MG TAB PO SCH ×3 (09:02→19:41)
[2022-03-14] MEDS: methylPREDNISolone 40 MG in SYRINGE 0 ML IV SCH (09:07)
[2022-03-14] MEDS: UMECLIDINIUM BROMIDE 62.5MCG/BLISTER 7 PUFFS/INHALER INH SCH (09:08)
[2022-03-14] MEDS: PREGABALIN 75 MG CAP PO SCH ×2 (09:10→19:39)
[2022-03-14] MEDS: OSELTAMIVIR PHOSPHATE SUSP 30 MG/5 ML UDP PO SCH (09:34)
[2022-03-14] MEDS: AZITHROMYCIN 250 MG in DEXTROSE 5% 250 ML IV SCH (11:47)
--- NOTE | 2022-03-14 19:11 | Billing Data ---
Date of Service March 14, 2022 Coding Level of Care Code 20777 SUB INP/OBS CARE MIN
[2022-03-14] MEDS: PRAZOSIN HCL 1 MG CAP PO SCH (19:40)
[2022-03-14] MEDS ORDERED: OSELTAMIVIR PHOSPHATE 75 MG CAP PO SCH (21:00)
[2022-03-14] MEDS: traZODone HCL 50 MG TAB PO SCH (22:44)
[2022-03-15 06:12] LABS: Basophils # (auto) 0.01 K/uL (0-0.2); Basophils % (auto) 0.2 %; Eosinophils # (auto) 0.01 K/uL (0-0.50); Eosinophils % (auto) 0.2 %; Hematocrit (blood only) 35.7 % (40.1-51.0); Hemoglobin 11.4 g/dl (14.0-18.0); Immature Granulocytes # (auto) 0.05 K/uL (0.00-0.02); Lymphocytes # (auto) 0.75 K/uL (1.2-3.4); Lymphocytes % (auto) 14.5 %; Mean Corpuscular Hemoglobin 29.2 pg (25.0-34.0); Mean Corpuscular Hgb Conc 31.9 g/dL (32.0-36.0); Mean Corpuscular Volume 91.5 fL (80.0-100.0); Mean Platelet Volume 10.5 fL (9.4-12.4); Monocytes # (auto) 0.37 K/uL (0.24-0.82); Monocytes % (auto) 7.1 %; Neutrophils # (auto) 3.99 K/uL (1.4-6.5); Platelet Count 192 K/uL (130-400); RDW Coefficient of Variation 15.5 % (11.5-14.5); RDW Standard Deviation 51.3 fL (36.4-46.3); White Blood Count 5.18 K/ul (4.8-10.8)
[2022-03-15 07:02] LABS: Albumin Globulin Ratio 1.1 (0.9-2); Albumin Level 3.7 gm/dl (3.4-5.0); BUN Creatinine Ratio 26.5 (10-20); Bilirubin,Total 0.3 mg/dl (0.2-1.0); Calcium 8.8 mg/dl (8.5-10.1); Creatinine Clr Calc Pharmacy 50.9 ml/min; Est GFR (African American) 61.2 ml/min; Est GFR (Non-African American) 52.8 ml/min; Globulin 3.3 gm/dl (2.5-4.0); Potassium 4.5 mmol/L (3.5-5.1)
[2022-03-15] MEDS: ALBUT/IPRATROP 3MG/0.5MG NEB 3 ML VIAL NEB SCH ×6 (07:08→22:32)
[2022-03-15] MEDS: BUDESONIDE 0.5 MG/2 ML VIAL (PULMICORT) NEB SCH ×2 (07:08→19:14)
[2022-03-15] MEDS: FORMOTEROL 20 MCG/2 ML VIAL NEB SCH ×2 (07:08→19:13)
--- NOTE | 2022-03-15 07:24 | Hospitalist Progress Note ---
Date of Service March 15, 2022 Assessment & Plan (1) Influenza A: (2) Acute respiratory failure with hypoxia: (3) HTN (hypertension): (4) VIK on CPAP: (5) Paroxysmal atrial fibrillation: (6) PTSD (post-traumatic stress disorder): (7) Asthma exacerbation: Plan #Asthma exacerbation -Patient has h/o allergic asthma dx back around [address] Pozo back on 05/2015 -Secondary to influenza -03/15: Patient still remains wheezing on exam and is not getting better clinically. Will increase therapy as below. -Will increase Solu-Medrol from 40mg QD to 60mg Q6H. Will increase DuoNeb from Q6H to Q4H while awake. -Continue Perforomist twice daily, and Budesonide nebulizer twice daily. -Azithromycin 500 mg given at time of admission, continue on 250 mg p.o. daily for 4 days. Will end on 03/17. -mag was 2.1 on 03/15. Will add on 1g mag x 1 bag to help with pulmonary inflammation. Will recheck mag in the morning. -May need repeat PFT's as an outpatient. #Influenza A -Droplet isolation precautions -Tamiflu 75 mg p.o. twice daily for 5 days. Will end on 03/17. #Acute respiratory failure with hypoxia -ABG: showed what was most likely venous blood. May need to repeat in the future. -Aim O2 sats 88-92% #HTN (hypertension) -Continue his home medication regimen with furosemide 20 mg p.o. daily, lisinopril 5 mg p.o. daily, metoprolol tartrate 12.5 mg p.o. twice daily #VIK on CPAP -Non compliant with CPAP at home -BiPAP HS during his admission #Paroxysmal atrial fibrillation -Continue anticoagulation with apixaban 5 mg p.o. twice daily -Currently in normal sinus rhythm #PTSD (post-traumatic stress disorder): -Do not wake patient by touching, only saying his name -Continue sertraline, prazosin, bupropion #bilateral below the knee amputation -Patient can use prosthesis with walking. -PT ordered for patient. Fluids: none Nutrition: heart healthy Code status: DNR/DNI DVT ppx: Eliquis Dispo: med/surg Thank you for allowing me to participate in the care of your patient. -Dr. Joel Bourgeois PGY1 Admission and Anticipated Discharge Date Admission Date: March 12, 2022 Supervising Physician Co-Signing Physician Notes I personally examined the patient and verified all weeks points of history and exam, discussed case, and agree with decision making with Dr Bourgeois. feeling a little worse today. Vitals noted, in general he is awake and alert pleasant no distress. Lungs are coarse with expiratory rhonchi and wheezing, sl less air entry than yesterday Flu and subsequent asthma exacerbation- a little worse but nontoxic appearing and symmetric exam - suspect more asthma than any concern at this time on secondary pneumonia - escalate steroids/nebs, follow closely Otherwise as above Subjective Patient was seen bedside this AM. He is doing about the same as he was yesterday. He does not feel like he is getting better. He still c/o wheezing and SOB. Review of Systems Review of Systems: All systems reviewed & are unremarkable except as noted in HPI & below Physical Exam Constitutional: well developed and + acute distress; + not well nourished Eyes: + anicteric sclerae; normal pupil size Respiratory: + respiratory distress, + labored breathing, + uses accessory muscles, + cough, able to speak in complete sentences, + prolonged expiratory phase and + pursed lip breathing; + abnormal respiratory effort and no stridor Auscultation: + wheezes (expiratory throughout); breath sounds present, no diminished lung sounds, no crackles, no rales and no rhonchi Cardiovascular: Rate/Rhythm: regular rate and regular rhythm Heart Sounds: no murmur Extremities: normal capillary refill Gastrointestinal (Abdomen): normal bowel sounds, soft, nontender, no hepatosplenomegaly Musculoskeletal: Bilateral Below the knee amputations. Skin: no rashes, warm and dry Psychiatric: A+Ox3, euthymic affect Results & Data Results & Data ([facility]) Vital Signs (Past 12 Hours) Vital Signs Temp Pulse Resp BP Pulse Ox O2 Del Method 03/15/22 07:10 68 20 92 Room Air 03/15/22 04:31 Room Air 03/14/22 22:03 36.4 C L 77 18 124/73 97 Room Air 03/14/22 19:58 80 20 96 Room Air Resident Activity Tracking Resident Involvement: Resident Care Provided Care Provided: Adult Hospital Medicine (1) HTN (hypertension) Hypertension type: essential hypertension Qualified Code(s): I10 - Essential (primary) hypertension
[2022-03-15] MEDS: UMECLIDINIUM BROMIDE 62.5MCG/BLISTER 7 PUFFS/INHALER INH SCH (08:13)
[2022-03-15] MEDS: APIXABAN 5 MG TABLET PO SCH ×2 (08:18→20:34)
[2022-03-15] MEDS: ATORVASTATIN 10 MG TAB PO SCH (08:18)
[2022-03-15] MEDS: HYDROXYUREA 500 MG CAP PO SCH (08:19)
[2022-03-15] MEDS: busPIRone 7.5 MG TAB PO SCH ×3 (08:19→20:34)
[2022-03-15] MEDS: buPROPion XL 150 MG TABCR PO SCH (08:19)
[2022-03-15] MEDS: FINASTERIDE 5 MG TAB PO SCH (08:19)
[2022-03-15] MEDS: FUROSEMIDE 20 MG TAB PO SCH (08:19)
[2022-03-15] MEDS: CARBIDOPA/LEVODOPA 25/100MG TAB PO SCH ×3 (08:19→20:35)
[2022-03-15] MEDS: methylPREDNISolone 40 MG in SYRINGE 0 ML IV SCH (08:20)
[2022-03-15] MEDS: MEMANTINE HCL 5 MG TAB PO SCH (08:20)
[2022-03-15] MEDS: MONTELUKAST SODIUM 10 MG TABLET PO SCH (08:21)
[2022-03-15] MEDS: PANTOprazole 40 MG TAB PO SCH (08:21)
[2022-03-15] MEDS: SERTRALINE HCL 100 MG TABLET PO SCH ×2 (08:21→20:38)
[2022-03-15] MEDS: METOPROLOL TARTRATE 25 MG TAB PO SCH ×2 (08:30→20:36)
[2022-03-15] MEDS: lisinopril 5 MG TAB PO SCH (08:30)
[2022-03-15] MEDS: AZITHROMYCIN 250 MG in DEXTROSE 5% 250 ML IV SCH (08:36)
[2022-03-15] MEDS: CYCLOBENZAPRINE HCL 10 MG TAB PO SCH ×2 (08:36→20:36)
[2022-03-15] MEDS: PREGABALIN 75 MG CAP PO SCH ×2 (08:36→20:43)
[2022-03-15] MEDS: OSELTAMIVIR PHOSPHATE SUSP 30 MG/5 ML UDP PO SCH ×2 (08:36→20:37)
[2022-03-15] MEDS ORDERED: MAGNESIUM SULFATE / D5W 1 GM/100 ML BAG IV ONE (10:57)
[2022-03-15] MEDS: methylPREDNISolone 60 MG in SYRINGE 0 ML IV SCH ×2 (16:05→20:33)
--- NOTE | 2022-03-15 19:03 | Billing Data ---
Date of Service March 15, 2022 Coding Level of Care Code 24321 SUB INP/OBS CARE MIN
[2022-03-15] MEDS: PRAZOSIN HCL 1 MG CAP PO SCH (20:37)
[2022-03-15] MEDS: traZODone HCL 50 MG TAB PO SCH (20:38)
[2022-03-15] MEDS: ACETAMINOPHEN 500 MG TAB PO PRN (20:43)
[2022-03-15] MEDS ORDERED: methylPREDNISolone 40 MG in SYRINGE 0 ML IV SCH (21:00)
[2022-03-16] MEDS: methylPREDNISolone 60 MG in SYRINGE 0 ML IV SCH ×4 (02:09→20:16)
[2022-03-16] MEDS: ALBUT/IPRATROP 3MG/0.5MG NEB 3 ML VIAL NEB SCH ×6 (02:16→23:25)
--- NOTE | 2022-03-16 06:50 | Hospitalist Progress Note ---
Date of Service March 16, 2022 Assessment & Plan (1) Influenza A: (2) Acute respiratory failure with hypoxia: (3) HTN (hypertension): (4) VIK on CPAP: (5) Paroxysmal atrial fibrillation: (6) PTSD (post-traumatic stress disorder): (7) Asthma exacerbation: Plan #Asthma exacerbation -Patient has h/o allergic asthma dx back around [address] Pozo back on 05/2015 -Secondary to influenza -Solu-Medrol 60mg Q6H. DuoNeb Q4H while awake. -Continue Perforomist twice daily, and Budesonide nebulizer twice daily. -Azithromycin 500 mg given at time of admission, continue on 250 mg p.o. daily for 4 days. Will end on 03/17. -03/16: patient is not getting better and is very wheezy still on examination. Will order CXR, BNP, CRP, procalc, and MRSA swab -CXR was negative for any acute pulmonary issue. CRP down trending. BNP and procalc were WNL. MRSA swab was negative. -Pulmonary consulted -Percussion therapy QID, decrease solu-medrol to BID tomorrow if normal. continue with brovana and budesonide. Hold Incruse Ellipta. -O2 goal of 88-92%. -5 bags of Mag given today. -May need repeat PFT's as an outpatient. #Influenza A -Droplet isolation precautions -Tamiflu 75 mg p.o. twice daily for 5 days. Will end on 03/17. #Acute respiratory failure with hypoxia -ABG: showed what was most likely venous blood. May need to repeat in the future. -Aim O2 sats 88-92% #HTN (hypertension) -Continue his home medication regimen with furosemide 20 mg p.o. daily, lisinopril 5 mg p.o. daily, metoprolol tartrate 12.5 mg p.o. twice daily #VIK on CPAP -Non compliant with CPAP at home -BiPAP HS during his admission #Paroxysmal atrial fibrillation -Continue anticoagulation with apixaban 5 mg p.o. twice daily -Currently in normal sinus rhythm #PTSD (post-traumatic stress disorder): -Do not wake patient by touching, only saying his name -Continue sertraline, prazosin, bupropion #bilateral below the knee amputation -Patient can use prosthesis with walking. -PT ordered for patient. Fluids: none Nutrition: heart healthy Code status: DNR/DNI DVT ppx: Eliquis Dispo: med/surg with tele Thank you for allowing me to participate in the care of your patient. -Dr. Joel Bourgeois PGY1 Admission and Anticipated Discharge Date Admission Date: March 12, 2022 Supervising Physician Co-Signing Physician Notes I personally examined the patient and verified all weeks points of history and exam, discussed case, and agree with decision making with Dr Bourgeois. More dyspnea on exertion, even some with eating. Vitals noted, in general he is awake and alert pleasant no distress. Lungs are coarse with expiratory rhonchi and wheezing, diffusely Flu and subsequent asthma exacerbation-worsening yet againchest x-ray does not show an infiltrate or pulmonary edema, labs are very reassuringto that end strongly likely this is still just an asthma exacerbation superimposed on flucontinue current care, ask pulmonary for evaluation. Otherwise as above Subjective Patient was seen bedside this AM. He is doing about the same/worse then he was yesterday in terms of his SOB and cough. Review of Systems Review of Systems: All systems reviewed & are unremarkable except as noted in HPI & below Physical Exam Physical Exam: Constitutional: Patient appears to be of their stated age. Patient is in no apparent distress. Patient is well-developed. Eyes: Pupils are equal round and reactive to light. Conjunctivae are normal. Anicteric sclera. Ears nose, mouth and throat: Deferred. Neck: Trachea is midline. Visual inspection is normal. Respiratory: Diffuse rhonchi and wheezing bilaterally. Prolonged phase of exhalation. No significant tachypnea. Cardiovascular: Regular rate and rhythm. No murmurs. No edema. Gastrointestinal: Normal bowel sounds, soft, nontender and nondistended. No hepatosplenomegaly noted. Musculoskeletal: No cyanosis. Patient is able to move all extremities. Strength is 5 out of 5 in the upper and lower extremities. Skin: No rashes, warm dry and intact. Neurologic: No obvious focal neurological deficits seen. Psychiatric: Alert and oriented x3 with a euthymic affect. Results & Data Results & Data ([facility]) Vital Signs (Past 12 Hours) Vital Signs Temp Pulse Resp BP BP Pulse Ox O2 Del Method 03/16/22 02:17 71 20 92 Room Air 03/15/22 20:38 Room Air 03/15/22 22:33 73 22 93 Room Air 03/15/22 22:03 36.9 C 76 18 143/87 H 94 Room Air 03/15/22 20:31 88 94 Room Air 03/15/22 20:28 36.8 C 96 H 16 132/83 91 Room Air 03/15/22 19:14 70 22 95 Room Air Resident Activity Tracking Resident Involvement: Resident Care Provided Care Provided: Adult Hospital Medicine (1) HTN (hypertension) Hypertension type: essential hypertension Qualified Code(s): I10 - Essential (primary) hypertension
[2022-03-16 06:56] LABS: Calcium 8.8 mg/dl (8.5-10.1); Magnesium 2.1 mg/dl (1.7-2.4); Potassium 4.7 mmol/L (3.5-5.1)
[2022-03-16 07:02] LABS: BUN Creatinine Ratio 31.3 (10-20); Creatinine Clr Calc Pharmacy 51.3 ml/min; Est GFR (African American) 61.7 ml/min; Est GFR (Non-African American) 53.3 ml/min
[2022-03-16] MEDS: FORMOTEROL 20 MCG/2 ML VIAL NEB SCH ×2 (07:02→19:08)
[2022-03-16] MEDS: BUDESONIDE 0.5 MG/2 ML VIAL (PULMICORT) NEB SCH ×2 (07:03→19:11)
[2022-03-16] MEDS ORDERED: MAGNESIUM SULFATE 1GM / D5W BAG IV STA (09:11)
[2022-03-16] MEDS ORDERED: ALBUT/IPRATROP 3MG/0.5MG NEB 3 ML VIAL NEB ONE (09:12)
[2022-03-16] MEDS ORDERED: MAGNESIUM SULFATE / D5W 1 GM/100 ML BAG IV SCH (09:15)
[2022-03-16] MEDS: APIXABAN 5 MG TABLET PO SCH ×2 (09:29→20:22)
[2022-03-16] MEDS: ATORVASTATIN 10 MG TAB PO SCH (09:30)
[2022-03-16] MEDS: AZITHROMYCIN 250 MG TAB PO SCH (09:31)
[2022-03-16] MEDS: busPIRone 7.5 MG TAB PO SCH ×3 (09:31→20:17)
[2022-03-16] MEDS: CYCLOBENZAPRINE HCL 10 MG TAB PO SCH ×2 (09:32→20:21)
[2022-03-16] MEDS: CARBIDOPA/LEVODOPA 25/100MG TAB PO SCH ×3 (09:32→20:18)
[2022-03-16] MEDS: FINASTERIDE 5 MG TAB PO SCH (09:33)
[2022-03-16] MEDS: FUROSEMIDE 20 MG TAB PO SCH (09:33)
[2022-03-16] MEDS: MEMANTINE HCL 5 MG TAB PO SCH (09:34)
[2022-03-16] MEDS: HYDROXYUREA 500 MG CAP PO SCH (09:34)
[2022-03-16] MEDS: lisinopril 5 MG TAB PO SCH (09:34)
[2022-03-16] MEDS: METOPROLOL TARTRATE 25 MG TAB PO SCH ×2 (09:35→20:23)
[2022-03-16] MEDS: MONTELUKAST SODIUM 10 MG TABLET PO SCH (09:36)
[2022-03-16] MEDS: PANTOprazole 40 MG TAB PO SCH (09:36)
[2022-03-16] MEDS: UMECLIDINIUM BROMIDE 62.5MCG/BLISTER 7 PUFFS/INHALER INH SCH (09:37)
[2022-03-16] MEDS: SERTRALINE HCL 100 MG TABLET PO SCH ×2 (09:37→20:19)
[2022-03-16] MEDS: buPROPion XL 150 MG TABCR PO SCH (09:48)
[2022-03-16] MEDS: PREGABALIN 75 MG CAP PO SCH ×2 (09:49→20:26)
--- NOTE | 2022-03-16 09:51 | XRay Report ---
XR chest 1V portable CLINICAL HISTORY: dyspnea TECHNIQUE: Single frontal radiograph of the chest was obtained. Comparison: Comparison is made to chest radiograph 03/12/2022 FINDINGS: No lines and tubes are seen. Cardiomegaly is noted. The lungs are clear. No evidence of pleural effus ion or pneumothorax. IMPRESSION: No acute chest disease. Cardiomegaly is noted. ACT 112: Negative or not required by law. Electronically signed by: Luis Carlos Garcia M.D. 03/16/2022 9:49 AM
[2022-03-16] MEDS: OSELTAMIVIR PHOSPHATE SUSP 30 MG/5 ML UDP PO SCH ×2 (10:24→20:40)
[2022-03-16] MEDS ORDERED: ALBUT/IPRATROP 3MG/0.5MG NEB 3 ML VIAL ONE (14:04)
--- NOTE | 2022-03-16 14:45 | Pulmonary Consultation ---
Date of Consultation March 16, 2022 Assessment & Plan (1) Bronchiolitis due to influenza virus: He has infectious bronchiolitis secondary to influenza. He likely has some degree of underlying asthmatic bronchitis. He needs outpatient PFTs and NIOX testing. He is on very high doses of IV Solu-Medrol at this time. Would recommend decreasing Solu-Medrol down to twice daily dosing tomorrow as long as symptoms improve. We will prescribe percussive vest therapy and hypertonic saline to help with mucociliary clearance. Continue Brovana and budesonide nebulized. We will hold Incruse Ellipta at this time as he notes a powdered inhalers agitate his symptoms. Largely treatment for this is symptomatic support. He will likely take several days to be ready for discharge out of the hospital and perhaps several weeks to recover to his baseline. (2) Hypoxemia: Continue to titrate oxygen to maintain saturation of 88 to 92%. He also carries a history of VIK, but apparently is not compliant with therapy. Would recommend retrialing him on CPAP while in the hospital. History of Present Illness Reason for Consultation: Asthma Attending Physician: Andi Hartley DO History of Present Illness 76-year-old male with past medical history of hypertension, paroxysmal atrial fibrillation on Eliquis, essential thrombocytosis on hydroxyurea, obesity and tobacco abuse who presented to the hospital on the due to fevers, cough, shortness of breath and hypoxia. He was found to have influenza A on initial testing. He was started on Tamiflu. He was also started on Perforomist and budesonide nebs. He was given azithromycin. Additionally, he was started on Solu-Medrol 40 mg twice a day. This has been increased to 60 mg every 6 hours by the hospitalist team. His labs are significant for mild anemia. No significant eosinophilia noted. ABG on admission revealed chronic respiratory acidosis with a mild compensatory metabolic alkalosis. He was very hypoxemic. Initial chest x-ray revealed increased interstitial markings with alveolar hypoventilation. Chest x-ray today notes improved aeration and is largely clear. He carries a chart diagnosis of asthma/COPD. No prior PFTs available for review. He was evaluated by Dr. Monae in 2019 while an inpatient for an acute exacerbation of asthma. He had a CT of his chest May 2019 which did note some mildly increased bronchial wall thickening. No significant emphysema was noted. No parenchymal abnormalities identified on my review. I certainly do not see any signs of overt emphysema. He notes that he continues to be short of breath with minimal exertion. He is wheezing significantly and has a cough. He is finding it hard to bring up sputum. He has Spiriva and albuterol at home which she uses very sporadically. He does not follow with an outpatient vp respiratory. He noted a fever last week. He has not had a fever today or overnight. He denies any chest pain at present. He does endorse tightness. Allergies Allergy/AdvReac Type Severity Reaction Status Date / Time ibuprofen Allergy Intermediate HIVES Verified 03/12/22 15:57 Home Medications Medication Instructions Recorded Confirmed Type albuterol sulfate 90 mcg/actuation 2 puff inhalation Q4 PRN Shortness 03/12/22 03/12/22 History aerosol inhaler Of Breath Or Wheezing apixaban 5 mg tablet (Eliquis) 5 mg PO BID 03/12/22 03/12/22 History atorvastatin 10 mg tablet 10 mg PO DAILY 03/12/22 03/12/22 History budesonide-formoterol HFA 160 2 puff inhalation BID PRN 03/12/22 03/12/22 History mcg-4.5 mcg/actuation aerosol Shortness Of Breath Or Wheezing inhaler bupropion HCl 300 mg 24 hr tablet, 300 mg PO QAM 03/12/22 03/12/22 History extended release buspirone 5 mg tablet 7.5 mg PO TID 03/12/22 03/12/22 History carbidopa 25 mg-levodopa 100 mg 1 tab PO .DAILY @ NOON 03/12/22 03/12/22 History tablet carbidopa 25 mg-levodopa 100 mg 2 tab PO AMHS 03/12/22 03/12/22 History tablet cyclobenzaprine 10 mg tablet 10 mg PO BID 03/12/22 03/12/22 History finasteride 5 mg tablet 5 mg PO DAILY 03/12/22 03/12/22 History furosemide 20 mg tablet 20 mg PO DAILY 03/12/22 03/12/22 History hydroxyurea 500 mg capsule 1,000 mg PO .5XWEEK 03/12/22 03/12/22 History lisinopril 5 mg tablet 5 mg PO DAILY 03/12/22 03/12/22 History memantine 5 mg tablet 0 mg PO DAILY 03/12/22 03/12/22 History metoprolol tartrate 25 mg tablet 12.5 mg PO BID 03/12/22 03/12/22 History montelukast 10 mg tablet 10 mg PO DAILY 03/12/22 03/12/22 History pantoprazole 40 mg tablet,delayed 40 mg PO DAILY 03/12/22 03/12/22 History release prazosin 5 mg capsule 5 mg PO HS 03/12/22 03/12/22 History pregabalin 150 mg capsule 150 mg PO BID 03/12/22 03/12/22 History sertraline 100 mg tablet 100 mg PO BID 03/12/22 03/12/22 History tiotropium bromide 18 mcg capsule 1 cap inhalation DAILY PRN 03/12/22 03/12/22 History with inhalation device (Spiriva Shortness Of Breath Or Wheezing with HandiHaler) trazodone 150 mg tablet 150 mg PO HS 03/12/22 03/12/22 History Patient History Medical History (Updated 03/16/22 @ 15:57 by Santos Kingston MD) Asthma BPH (benign prostatic hyperplasia) Bronchiolitis due to influenza virus Chronic bronchitis Closed fracture dislocation of ankle DDD (degenerative disc disease) Diverticulitis HTN (hypertension) Hypoxemia Intractable back pain MRSA (methicillin resistant Staphylococcus aureus) negative nasal swab on 06/24/15 and 10/05/18 Obesity Open wound of ankle with complication VIK on CPAP Noncompliant Prolonged QT interval AYr=389 EKG 05/25/19 PTSD (post-traumatic stress disorder) do not wake patient by touching, wake patient by saying name Surgical History History of back surgery back surgery x3 at [facility] History of partial colectomy S/P hernia repair Status post ORIF of fracture of ankle 05/26/[address] Farhan DIEZ with sedation. Family History Other Family history non-contributory Social History Smoking Status: Former smoker Tobacco Type: Smokeless Tobacco (Dip or Chew) Cigarettes Per Day: Uncertain.; Second Hand Exposure: No; Do You Dip or Chew Tobacco: No; Tobacco Cessation Education Requested by Patient: No Hx Alcohol Use: Yes Alcohol type: beer Hx Substance Use: No Preferred Language: Chinese Communication Ability: Effective Optometric Tech Required: No Beliefs That Will Affect Care: None marital status: Current Living Situation: Spouse Current Living Situation Comment: with wifr and grandson Other Information That Helps Us Care for You: No Feels Safe at Home: Yes Safety Concerns: Feels Safe At This Time Assistive Devices: Wheelchair Review of Systems Review of Systems: All systems reviewed & are unremarkable except as noted in HPI & below Physical Exam Physical Exam: Constitutional: Patient appears to be of their stated age. Patient is in no apparent distress. Patient is well-developed. Eyes: Pupils are equal round and reactive to light. Conjunctivae are normal. Anicteric sclera. Ears nose, mouth and throat: Deferred. Neck: Trachea is midline. Visual inspection is normal. Respiratory: Diffuse rhonchi and wheezing bilaterally. Prolonged phase of exhalation. No significant tachypnea. Cardiovascular: Regular rate and rhythm. No murmurs. No edema. Gastrointestinal: Normal bowel sounds, soft, nontender and nondistended. No hepatosplenomegaly noted. Musculoskeletal: No cyanosis. Patient is able to move all extremities. Strength is 5 out of 5 in the upper and lower extremities. Skin: No rashes, warm dry and intact. Neurologic: No obvious focal neurological deficits seen. Psychiatric: Alert and oriented x3 with a euthymic affect. Results & Data Results & Data ([facility]) Vital Signs (Past 12 Hours) Vital Signs Temp Pulse Resp BP Pulse Ox O2 Del Method 03/16/22 14:10 74 18 91 Room Air 03/16/22 10:47 70 18 96 Room Air 03/16/22 11:05 Room Air 03/16/22 07:54 36.4 C L 70 20 126/75 97 Room Air 03/16/22 07:03 67 18 93 Room Air PG Care Time/CCT Total # of Minutes Spent Total Time Spent with Patient: Total time spent is greater than 50% in coordination of care (as documented) at patient's floor/unit and/or counseling patient: Coding Level of Care Code 05613 INT INP/OBS CARE 2/55MIN Diagnoses Bronchiolitis due to influenza virus J11.1 Hypoxemia R09.02
[2022-03-16] MEDS: MAGNESIUM SULFATE / D5W 1 GM/100 ML BAG IV SCH ×2 (16:08→18:19)
--- NOTE | 2022-03-16 18:37 | Billing Data ---
Date of Service March 16, 2022 Coding Level of Care Code 55054 SUB INP/OBS CARE MIN
[2022-03-16] MEDS: SODIUM CHLOR 7% 4 ML NEB NEB SCH (19:10)
[2022-03-16] MEDS: PRAZOSIN HCL 1 MG CAP PO SCH (20:19)
[2022-03-16] MEDS: traZODone HCL 50 MG TAB PO SCH (20:21)
[2022-03-16] MEDS ORDERED: ONDANSETRON INJ 2 MG/ML 2 ML VIAL IV STA (22:36)
[2022-03-17] MEDS: methylPREDNISolone 60 MG in SYRINGE 0 ML IV SCH ×4 (02:21→20:45)
[2022-03-17] MEDS: ALBUT/IPRATROP 3MG/0.5MG NEB 3 ML VIAL NEB SCH ×6 (03:00→22:08)
--- NOTE | 2022-03-17 06:59 | Hospitalist Progress Note ---
Date of Service March 17, 2022 Assessment & Plan (1) Influenza A: (2) Acute respiratory failure with hypoxia: (3) HTN (hypertension): (4) VIK on CPAP: (5) Paroxysmal atrial fibrillation: (6) PTSD (post-traumatic stress disorder): (7) Asthma exacerbation: Plan #Asthma exacerbation -Patient has h/o allergic asthma dx back around [address] Pozo back on 05/2015 -Secondary to influenza -Solu-Medrol 60mg Q6H changed to BID on 03/17. -DuoNeb Q4H while awake. -Continue Perforomist twice daily, and Budesonide nebulizer twice daily. -Azithromycin 500 mg given at time of admission. 250 mg p.o. for 4 days. Ended on 03/17. -03/16: patient is not getting better and is very wheezy still on examination. Will order CXR, BNP, CRP, procalc, and MRSA swab -CXR was negative for any acute pulmonary issue. CRP down trending. BNP and procalc were WNL. MRSA swab was negative. -Pulmonary consulted -Percussion therapy QID, decrease solu-medrol to BID tomorrow if normal. continue with brovana and budesonide. Hold Incruse Ellipta. -O2 goal of 88-92%. -5 bags of Mag given yesterday. -May need repeat PFT's as an outpatient. #Influenza A -Droplet isolation precautions -Tamiflu 75 mg p.o. twice daily for 5 days. Will end on 03/17. #Acute respiratory failure with hypoxia -ABG: showed what was most likely venous blood. May need to repeat in the future. -Aim O2 sats 88-92% #HTN (hypertension) -Continue his home medication regimen with furosemide 20 mg p.o. daily, lisinopril 5 mg p.o. daily, metoprolol tartrate 12.5 mg p.o. twice daily #VIK on CPAP -Non compliant with CPAP at home -BiPAP HS during his admission #Paroxysmal atrial fibrillation -Continue anticoagulation with apixaban 5 mg p.o. twice daily -Currently in normal sinus rhythm #PTSD (post-traumatic stress disorder): -Do not wake patient by touching, only saying his name -Continue sertraline, prazosin, bupropion #bilateral below the knee amputation -Patient can use prosthesis with walking. -PT ordered for patient. #epigastric pain -Lipase normal this AM. -got better with Zofran will put in Zofran prn and assess in the morning. Fluids: none Nutrition: heart healthy Code status: DNR/DNI DVT ppx: Eliquis Dispo: med/surg with tele Thank you for allowing me to participate in the care of your patient. -Dr. Joel Bourgeois PGY1 Admission and Anticipated Discharge Date Admission Date: March 12, 2022 Supervising Physician Co-Signing Physician Notes I personally examined the patient and verified all weeks points of history and exam, discussed case, and agree with decision making with Dr Bourgeois. Dyspnea slightly better. Upper abdominal discomfort.. Vitals noted, in general he is awake and alert pleasant no distress. Lungs are coarse with expiratory rhonchi and wheezing, diffuselybut far better than yesterday and better air entry. Abdomen moderately distended mild epigastric tenderness no guarding rebound or rigidity. Flu and subsequent asthma exacerbation-finally starting to improve. Continue current careexcept we can wean the steroids slightly. Abdominal discomfort and bloatingappears to be both indigestion, probably brought on by steroids and acute illnesscompounded by what sounds to be a history of a hiatal hernia; also due to a degree of constipationsymptomatic care and a bowel regimen. Otherwise as above Subjective Patient was seen beside in the AM. He states that his SOB and wheezing is still there but is improved from the previous day. States that he does have some epigastric pain last night and this morning. States that it was more painful last night and got better with ondansetron. He denies pain in his abdomen anywhere else. Review of Systems Review of Systems: All systems reviewed & are unremarkable except as noted in HPI & below Physical Exam Physical Exam: Constitutional: Patient appears to be of their stated age. Patient is in no apparent distress. Patient is well-developed. Eyes: Pupils are equal round and reactive to light. Conjunctivae are normal. Anicteric sclera. Ears nose, mouth and throat: Deferred. Neck: Trachea is midline. Visual inspection is normal. Respiratory: Diffuse rhonchi and wheezing bilaterally. Prolonged phase of exhalation. No significant tachypnea. Cardiovascular: Regular rate and rhythm. No murmurs. No edema. Gastrointestinal: Normal bowel sounds, soft, nontender and nondistended. No hepatosplenomegaly noted. Musculoskeletal: No cyanosis. Patient is able to move all extremities. Stre ngth is 5 out of 5 in the upper and lower extremities. Skin: No rashes, warm dry and intact. Neurologic: No obvious focal neurological deficits seen. Psychiatric: Alert and oriented x3 with a euthymic affect. Results & Data Results & Data ([facility]) Vital Signs (Past 12 Hours) Vital Signs Temp Pulse Pulse Resp BP Pulse Ox O2 Del Method 03/17/22 02:51 36.4 C L 75 18 146/84 H 92 Room Air 03/17/22 03:02 74 16 92 Room Air 03/17/22 00:00 79 03/16/22 23:27 74 16 93 Room Air 03/16/22 22:47 36.7 C 77 20 171/89 H 93 Room Air 03/16/22 21:00 Room Air 03/16/22 19:27 36.6 C 81 20 137/75 99 Nebulizer 03/16/22 19:13 84 91 Room Air FiO2 03/17/22 02:51 03/17/22 03:02 03/17/22 00:00 03/16/22 23:27 21 03/16/22 22:47 03/16/22 21:00 03/16/22 19:27 03/16/22 19:13 21 Resident Activity Tracking Resident Involvement: Resident Care Provided Care Provided: Adult Hospital Medicine (1) HTN (hypertension) Hypertension type: essential hypertension Qualified Code(s): I10 - Essential (primary) hypertension
[2022-03-17] MEDS: FORMOTEROL 20 MCG/2 ML VIAL NEB SCH ×2 (07:01→20:06)
[2022-03-17] MEDS: SODIUM CHLOR 7% 4 ML NEB NEB SCH ×2 (07:02→20:08)
[2022-03-17] MEDS: BUDESONIDE 0.5 MG/2 ML VIAL (PULMICORT) NEB SCH ×2 (07:02→20:06)
[2022-03-17] MEDS: buPROPion XL 150 MG TABCR PO SCH (08:00)
[2022-03-17] MEDS: AZITHROMYCIN 250 MG TAB PO SCH (08:00)
[2022-03-17] MEDS: ATORVASTATIN 10 MG TAB PO SCH (08:00)
[2022-03-17] MEDS: FUROSEMIDE 20 MG TAB PO SCH (08:00)
[2022-03-17] MEDS: APIXABAN 5 MG TABLET PO SCH (08:00)
[2022-03-17] MEDS: HYDROXYUREA 500 MG CAP PO SCH (08:00)
[2022-03-17] MEDS: lisinopril 5 MG TAB PO SCH (08:00)
[2022-03-17] MEDS: MONTELUKAST SODIUM 10 MG TABLET PO SCH (08:01)
[2022-03-17] MEDS: PANTOprazole 40 MG TAB PO SCH (08:01)
[2022-03-17] MEDS: busPIRone 7.5 MG TAB PO SCH ×2 (08:01→13:25)
[2022-03-17] MEDS: SERTRALINE HCL 100 MG TABLET PO SCH (08:01)
[2022-03-17] MEDS: MEMANTINE HCL 5 MG TAB PO SCH (08:02)
[2022-03-17] MEDS: FINASTERIDE 5 MG TAB PO SCH (08:02)
[2022-03-17] MEDS: CYCLOBENZAPRINE HCL 10 MG TAB PO SCH (08:02)
[2022-03-17] MEDS: METOPROLOL TARTRATE 25 MG TAB PO SCH (08:02)
[2022-03-17] MEDS: CARBIDOPA/LEVODOPA 25/100MG TAB PO SCH ×2 (08:03→11:53)
[2022-03-17] MEDS: ACETAMINOPHEN 500 MG TAB PO PRN (08:04)
[2022-03-17] MEDS: PREGABALIN 75 MG CAP PO SCH (08:05)
[2022-03-17] MEDS: OSELTAMIVIR PHOSPHATE SUSP 30 MG/5 ML UDP PO SCH (08:11)
[2022-03-17 08:14] LABS: Hematocrit (blood only) 40.6 % (40.1-51.0); Hemoglobin 12.8 g/dl (14.0-18.0); Mean Corpuscular Hemoglobin 28.7 pg (25.0-34.0); Mean Corpuscular Hgb Conc 31.5 g/dL (32.0-36.0); Mean Platelet Volume 10.1 fL (9.4-12.4); Platelet Count 245 K/uL (130-400); RDW Coefficient of Variation 15.2 % (11.5-14.5); RDW Standard Deviation 50.7 fL (36.4-46.3); Red Blood Count 4.46 M/uL (4.63-6.08); White Blood Count 11.31 K/ul (4.8-10.8)
[2022-03-17 09:28] LABS: Albumin Globulin Ratio 1.2 (0.9-2); Albumin Level 3.9 gm/dl (3.4-5.0); BUN Creatinine Ratio 31.5 (10-20); Bilirubin,Total 0.4 mg/dl (0.2-1.0); Calcium 8.8 mg/dl (8.5-10.1); Creatinine Clr Calc Pharmacy 55.4 ml/min; Est GFR (Non-African American) 56.9 ml/min; Globulin 3.3 gm/dl (2.5-4.0); Potassium 4.9 mmol/L (3.5-5.1); Total Protein 7.2 gm/dl (6.0-8.3)
[2022-03-17 09:30] LABS: Creatinine Clr Calc Pharmacy 55.9 ml/min; Est GFR (African American) 66.6 ml/min; Est GFR (Non-African American) 57.5 ml/min
--- NOTE | 2022-03-17 14:48 | Pulmonology Progress Note ---
Date of Service March 17, 2022 Assessment & Plan (1) Bronchiolitis due to influenza virus: Plan: He has infectious bronchiolitis secondary to influenza. He likely has some degree of underlying asthmatic bronchitis. He needs outpatient PFTs and NIOX testing. Continue IV Solu-Medrol 60 mg twice daily today and reevaluate tomorrow. Continue percussive therapy and hypertonic saline to promote mucociliary clearance. Continue nebulized Brovana and budesonide. Largely treatment for this is symptomatic support. He will likely take several days to be ready for discharge and perhaps several weeks to recover to his baseline. (2) Hypoxemia: Plan: Continue to titrate oxygen to maintain saturation of 88 to 92%. He also carries a history of VIK, but apparently is not compliant with therapy. Would recommend retrialing him on CPAP while in the hospital. Admission and Anticipated Discharge Date Admission Date: March 12, 2022 Subjective Patient continues to be very short of breath with exertion and has a nonproductive cough. He thinks that the best therapy has helped somewhat. He denies any fevers. He did feel nauseous last night and had trouble with sleep. He denies any chest pain. He does feel congested. Review of Systems Review of Systems: All systems reviewed & are unremarkable except as noted in HPI & below Physical Exam Physical Exam: Constitutional: Patient appears to be of their stated age. Patient is in no apparent distress. Patient is well-developed. Eyes: Pupils are equal round and reactive to light. Conjunctivae are normal. Anicteric sclera. Ears nose, mouth and throat: Deferred. Neck: Trachea is midline. Visual inspection is normal. Respiratory: Diffuse rhonchi and wheezing bilaterally. Prolonged phase of exhalation. No significant tachypnea. Cardiovascular: Regular rate and rhythm. No murmurs. No edema. Gastrointestinal: Normal bowel sounds, soft, nontender and nondistended. No hepatosplenomegaly noted. Musculoskeletal: No cyanosis. Patient is able to move all extremities. Strength is 5 out of 5 in the upper and lower extremities. Skin: No rashes, warm dry and intact. Neurologic: No obvious focal neurological deficits seen. Psychiatric: Alert and oriented x3 with a euthymic affect. Results & Data Results & Data ([facility]) Vital Signs (Past 12 Hours) Vital Signs Temp Pulse Pulse Resp BP BP Pulse Ox 03/17/22 13:31 96 03/17/22 11:50 36.5 C 74 18 86/50 L 93 03/17/22 11:52 36.6 C 76 20 99/64 L 98/62 L 93 03/17/22 11:02 70 18 90 03/17/22 07:45 03/17/22 07:47 36.6 C 75 20 114/63 97 03/17/22 06:05 71 03/17/22 07:03 84 18 91 03/17/22 02:51 36.4 C L 75 18 146/84 H 92 03/17/22 03:02 74 16 92 O2 Del Method O2 Flow Rate 03/17/22 13:31 Nasal Cannula 2 03/17/22 11:50 Room Air 03/17/22 11:52 Room Air 03/17/22 11:02 Nasal Cannula 2 03/17/22 07:45 Room Air 03/17/22 07:47 Room Air 03/17/22 06:05 03/17/22 07:03 Room Air 03/17/22 02:51 Room Air 03/17/22 03:02 Room Air PG Care Time/CCT Total # of Minutes Spent Total Time Spent with Patient: Total time spent is greater than 50% in coordination of care (as documented) at patient's floor/unit and/or counseling patient: Coding Level of Care Code 70921 SUB INP/OBS CARE 2/35MIN Diagnoses Bronchiolitis due to influenza virus J11.1 Hypoxemia R09.02
--- NOTE | 2022-03-17 16:59 | Billing Data ---
Date of Service March 17, 2022 Coding Level of Care Code 21229 SUB INP/OBS CARE MIN
[2022-03-17] MEDS: POLYETHYLENE (MIRALAX) 17 GM PACK PO SCH ×2 (17:32→19:18)
[2022-03-17] MEDS: ONDANSETRON INJ 2 MG/ML 2 ML VIAL IV PRN ×2 (17:32→17:42)
[2022-03-17] MEDS ORDERED: PANTOprazole 40 MG in SYRINGE 0 ML IV ONE (19:59)
[2022-03-18] MEDS: APIXABAN 5 MG TABLET PO SCH ×4 (01:04→20:24)
[2022-03-18] MEDS: FAMOTIDINE 20 MG TAB PO SCH ×4 (01:04→20:24)
[2022-03-18] MEDS: PRAZOSIN HCL 1 MG CAP PO SCH ×2 (01:04→20:23)
[2022-03-18] MEDS: PREGABALIN 75 MG CAP PO SCH ×4 (01:04→20:22)
[2022-03-18] MEDS: METOPROLOL TARTRATE 25 MG TAB PO SCH ×4 (01:04→20:25)
[2022-03-18] MEDS: CARBIDOPA/LEVODOPA 25/100MG TAB PO SCH ×5 (01:04→20:25)
[2022-03-18] MEDS: CYCLOBENZAPRINE HCL 10 MG TAB PO SCH ×4 (01:04→20:23)
[2022-03-18] MEDS: busPIRone 7.5 MG TAB PO SCH ×5 (01:04→20:23)
[2022-03-18] MEDS: SERTRALINE HCL 100 MG TABLET PO SCH ×4 (01:05→20:26)
[2022-03-18] MEDS: traZODone HCL 50 MG TAB PO SCH ×2 (01:05→20:22)
[2022-03-18] MEDS: ALBUT/IPRATROP 3MG/0.5MG NEB 3 ML VIAL NEB SCH ×6 (03:01→22:38)
[2022-03-18] MEDS: SODIUM CHLOR 7% 4 ML NEB NEB SCH ×2 (07:03→20:02)
--- NOTE | 2022-03-18 07:17 | XRay Report ---
XR KUB/Abdomen 1 view CLINICAL HISTORY: abdominal pain and distension TECHNIQUE: 1 view of the abdomen was obtained. Comparison: Comparison is made to CT abdomen pelvis 06/27/2019 FINDINGS: Lung bases are unremarkable. Posterior fixation hardware is seen spanning L5-S1. Degenerative changes are seen. Numerous dilated loops of small bowel are seen measuring up to 46 [address] diameter. Small [address] ool burden is seen. IMPRESSION: Numerous gaseous dilated loops of small bowel with underdistended colon. Findings are compatible with small bowel obstruction although ileus may present similarly. ACT 112: Negative or not required by law. Electronically signed by: Luis Carlos Garcia M.D. 03/18/2022 7:16 AM
--- NOTE | 2022-03-18 07:18 | Hospitalist Progress Note ---
Date of Service March 18, 2022 Assessment & Plan (1) Influenza A: (2) Acute respiratory failure with hypoxia: (3) HTN (hypertension): (4) VIK on CPAP: (5) Paroxysmal atrial fibrillation: (6) PTSD (post-traumatic stress disorder): (7) Asthma exacerbation: Plan 03/18 update: Patient's shortness of breath, cough, wheezing continues to improve. Noted today he has some issues with constipation which was treated with n.p.o. and IV fluids and he was able to go around 5 PM this evening. We will switch back to regular diet and discontinue IV fluids. No other issues or concerns #Asthma exacerbation -Patient has h/o allergic asthma dx back around [address] Pozo back on 05/2015 -Secondary to influenza -Solu-Medrol 60mg Q6H changed to BID on 03/17. -DuoNeb Q4H while awake. -Continue Perforomist twice daily, and Budesonide nebulizer twice daily. -Azithromycin 500 mg given at time of admission. 250 mg p.o. for 4 days. Ended on 03/17. -03/16: patient is not getting better and is very wheezy still on examination. Will order CXR, BNP, CRP, procalc, and MRSA swab -CXR was negative for any acute pulmonary issue. CRP down trending. BNP and procalc were WNL. MRSA swab was negative. -Pulmonary consulted -Percussion therapy QID, decrease solu-medrol to BID tomorrow if normal. continue with brovana and budesonide. Hold Incruse Ellipta. -O2 goal of 88-92%. -May need repeat PFT's as an outpatient. #Influenza A -Droplet isolation precautions -Tamiflu 75 mg p.o. twice daily for 5 days. Will end on 03/17. #Acute respiratory failure with hypoxia -ABG: showed what was most likely venous blood. May need to repeat in the futur e. -Aim O2 sats 88-92% #HTN (hypertension) -Continue his home medication regimen with furosemide 20 mg p.o. daily, lisinopril 5 mg p.o. daily, metoprolol tartrate 12.5 mg p.o. twice daily #VIK on CPAP -Non compliant with CPAP at home -BiPAP HS during his admission #Paroxysmal atrial fibrillation -Continue anticoagulation with apixaban 5 mg p.o. twice daily -Currently in normal sinus rhythm #PTSD (post-traumatic stress disorder): -Do not wake patient by touching, only saying his name -Continue sertraline, prazosin, bupropion #bilateral below the knee amputation -Patient can use prosthesis with walking. -PT ordered for patient. #epigastric pain -Lipase normal this AM. -got better with Zofran will put in Zofran prn and assess in the morning. -Patient continues to have worsening pain on 03/18. -KUB showed small bowel obstruction versus ileus. -Patient made n.p.o. and FABIAN done bedside showed no significant fecal material in the anal vault -Patient continued to have pain and constipation throughout the entire day but then was able to have a small bowel movement around 5 PM evening on 03/18 Fluids: none Nutrition: heart healthy Code status: DNR/DNI DVT ppx: Eliquis Dispo: med/surg with tele Thank you for allowing me to participate in the care of your patient. -Dr. Joel Bourgeois PGY1 Admission and Anticipated Discharge Date Admission Date: March 12, 2022 Supervising Physician Co-Signing Physician Notes I personally examined the patient and verified all weeks points of history and exam, discussed case, and agree with decision making with Dr Bourgeois. Abdominal discomfort worse than yesterday when I saw himbut seem to reach a peak along with nausea and vomiting around 11 PM last nightfrom there it is much better. Still has fairly diffuse pain. No bowel movements or gas.. Vitals noted, in general he is awake and alert pleasant no distress. Lungs are coarse with expiratory rhonchi and wheezing, diffuselybut improving and good air entry overall. Abdomen moderately distended mild diffuse tenderness, probably moderate epigastricno guarding rebound or rigidity. Flu and subsequent asthma exacerbation-overall appears to be improved, I suspect today's recurrence of an oxygen requirement is more from pressure on his chest from his distended abdomen then anything to do with the flu. Hank steroids slightly Abdominal discomfort and bloatingprobably ileus. Supportive care. Serial exams. Otherwise as above Subjective Patient was seen bedside this AM. States that his breathing feels about the same as discussed yesterday. Though he is having a little bit of increasing shortness of breath that he contributes to his abdominal pain. He continues to have epigastric pain, that has gotten worse since yesterday. He states that he has not passed gas for the last 2 days or had a bowel movement in the last 2 days. Patient also states that his breathing got a little bit worse once the nurse put oxygen back on last night. He was on room air until last night, he was satting at 93% on room air at that time without any need of extra oxygenation. He states that he was doing good without the need of oxygen, and his breathing worse once put back on the oxygen. Review of Systems Review of Systems: All systems reviewed & are unremarkable except as noted in HPI & below Physical Exam Constitutional: WD/WN, vitals as above ENMT: external ear and nose normal, oropharynx normal Neck: trachea midline, no thyromegaly Respiratory: Auscultation: + rhonchi and + wheezes Cardiovascular: RRR, no murmur, no edema Gastrointestinal (Abdomen): Inspection/Auscultation: abdomen normal to inspection, + abdomen distended and + hypoactive bowel sounds Percussion/Palpation: + abdomen tender (eipgastric and RUQ pain ) Rectal Exam: normal visual inspection of rectum (no large amount of stool in the terminal rectum ) Musculoskeletal: Bilateral Below the knee amputations Skin: no rashes, warm and dry Psychiatric: A+Ox3, euthymic affect Results & Data Results & Data ([facility]) Vital Signs (Past 12 Hours) Vital Signs Temp Pulse Pulse Resp BP Pulse Ox O2 Del Method 03/18/22 07:07 72 03/18/22 07:05 76 16 94 Nasal Cannula 03/18/22 03:42 36.3 C L 70 18 139/87 94 Nasal Cannula 03/18/22 00:00 74 03/17/22 21:00 Nasal Cannula 03/17/22 22:53 36.6 C 76 20 158/90 H 95 Nasal Cannula 03/17/22 22:08 75 18 95 Nasal Cannula 03/17/22 20:00 71 18 93 Nasal Cannula O2 Flow Rate 03/18/22 07:07 03/18/22 07:05 2 03/18/22 03:42 2 03/18/22 00:00 03/17/22 21:00 1.5 03/17/22 22:53 2 03/17/22 22:08 1 03/17/22 20:00 1 Resident Activity Tracking Resident Involvement: Resident Care Provided Care Provided: Adult Hospital Medicine (1) HTN (hypertension) Hypertension type: essential hypertension Qualified Code(s): I10 - Essential (primary) hypertension
[2022-03-18] MEDS: FORMOTEROL 20 MCG/2 ML VIAL NEB SCH ×2 (07:23→20:02)
[2022-03-18] MEDS: BUDESONIDE 0.5 MG/2 ML VIAL (PULMICORT) NEB SCH ×2 (07:23→20:06)
[2022-03-18 07:37] LABS: Hematocrit (blood only) 42.8 % (40.1-51.0); Hemoglobin 13.7 g/dl (14.0-18.0); Mean Corpuscular Volume 90.5 fL (80.0-100.0); Mean Platelet Volume 10.1 fL (9.4-12.4); Platelet Count 267 K/uL (130-400); RDW Coefficient of Variation 15.3 % (11.5-14.5); RDW Standard Deviation 50.8 fL (36.4-46.3); Red Blood Count 4.73 M/uL (4.63-6.08)
[2022-03-18 08:10] LABS: Albumin Level 3.9 gm/dl (3.4-5.0); Bilirubin,Total 0.6 mg/dl (0.2-1.0); Calcium 8.8 mg/dl (8.5-10.1); Potassium 5.3 mmol/L (3.5-5.1)
[2022-03-18 08:16] LABS: Albumin Globulin Ratio 1.3 (0.9-2); BUN Creatinine Ratio 39.9 (10-20); Creatinine Clr Calc Pharmacy 49.5 ml/min; Globulin 3.1 gm/dl (2.5-4.0)
[2022-03-18] MEDS: FUROSEMIDE 20 MG TAB PO SCH ×2 (08:47→09:31)
[2022-03-18] MEDS: FINASTERIDE 5 MG TAB PO SCH ×2 (08:47→09:30)
[2022-03-18] MEDS: buPROPion XL 150 MG TABCR PO SCH ×2 (08:47→09:32)
[2022-03-18] MEDS: HYDROXYUREA 500 MG CAP PO SCH ×2 (08:47→09:30)
[2022-03-18] MEDS: ATORVASTATIN 10 MG TAB PO SCH ×2 (08:47→09:31)
[2022-03-18] MEDS: POLYETHYLENE (MIRALAX) 17 GM PACK PO SCH ×2 (08:48→09:35)
[2022-03-18] MEDS: PANTOprazole 40 MG TAB PO SCH ×2 (08:48→09:31)
[2022-03-18] MEDS: MONTELUKAST SODIUM 10 MG TABLET PO SCH ×2 (08:48→09:35)
[2022-03-18] MEDS: lisinopril 5 MG TAB PO SCH ×2 (08:48→09:30)
[2022-03-18] MEDS: MEMANTINE HCL 5 MG TAB PO SCH ×2 (08:48→09:29)
[2022-03-18] MEDS: methylPREDNISolone 60 MG in SYRINGE 0 ML IV SCH (08:58)
[2022-03-18] MEDS: ONDANSETRON INJ 2 MG/ML 2 ML VIAL IV PRN (09:48)
[2022-03-18] MEDS ORDERED: LACTATED RINGER'S 1,000 ML IV SCH (11:00)
--- NOTE | 2022-03-18 17:27 | Billing Data ---
Date of Service March 18, 2022 Coding Level of Care Code 71796 SUB INP/OBS CARE MIN
[2022-03-19] MEDS ORDERED: SODIUM CHLORIDE 0.9% 1000ML 1,000 ML IV ONE ×2 (01:32→02:54)
[2022-03-19] MEDS: ALBUT/IPRATROP 3MG/0.5MG NEB 3 ML VIAL NEB SCH ×7 (02:01→22:11)
[2022-03-19] MEDS: SODIUM CHLORIDE 0.9% 500 ML IV SCH ×4 (04:20→23:46)
--- NOTE | 2022-03-19 06:54 | Hospitalist Progress Note ---
Date of Service March 19, 2022 Assessment & Plan (1) Influenza A: (2) Acute respiratory failure with hypoxia: (3) HTN (hypertension): (4) VIK on CPAP: (5) Paroxysmal atrial fibrillation: (6) PTSD (post-traumatic stress disorder): (7) Asthma exacerbation: Plan #Acute Hypoxemic Repository Failure secondary to Asthma exacerbation and Influenza -Patient has h/o allergic asthma dx back around [address] Pozo back on 05/2015 -Secondary to influenza -Will transitioned from Solu-Medrol 60mg daily to 60mg prednisone PO daily -DuoNeb Q4H while awake. -Continue Perforomist twice daily, and Budesonide nebulizer twice daily. -Completed 5 day course Azithromycin on 03/17 -Pulmonary consulted. -O2 goal of 88-92%. -May need repeat PFT's as an outpatient. #Hypotension - Was hypotensive to 90/50 overnight. S/p 2 1L fluid boluses with improvement in blood pressure - continue NS at 80ml/hr #Influenza A -Droplet isolation precautions -Completed 5 day course of Tamiflu on 03/17 #Chronic HTN (hypertension) -Continue his home medication regimen with furosemide 20 mg p.o. daily, lisinopril 5 mg p.o. daily, metoprolol tartrate 12.5 mg p.o. twice daily #VIK on CPAP -Non compliant with CPAP at home -BiPAP HS during his admission #Paroxysmal atrial fibrillation -Continue anticoagulation with apixaban 5 mg p.o. twice daily -Currently in normal sinus rhythm #PTSD (post-traumatic stress disorder): -Do not wake patient by touching, only saying his name -Continue sertraline, prazosin, bupropion #B/L BKA -Patient can use prosthesis with walking. -PT ordered for patient. #epigastric pain -resolved; likely secondary to constipation/ ileus Fluids: none Nutrition: heart healthy Code status: DNR/DNI DVT ppx: Eliquis Dispo: med/surg with tele Admission and Anticipated Discharge Date Admission Date: March 12, 2022 Supervising Physician Co-Signing Physician Notes I personally examined the patient and verified all weeks points of history and exam, discussed case, and agree with decision making with Dr Shaw Had a bowel movement. Abdominal pain overall far better than before. Still feels a bit distended. Not really short of breath. Does feel he needs rehab. Vitals noted, in general he is awake and alert pleasant no distress. Very faint rhonchi bilaterally expiratory, but much more clear than before. No wheezing. Abdomen is soft moderately distended but less than before. Mild epigastric tenderness no guarding rebound or rigidity. Flu and subsequent asthma exacerbation-overall appears to be improved, slowly taper steroids Abdominal discomfort and bloatingprobably ileus. Improving. Continue bowel regimen. Diet. Deconditioning/weaknessfor rehab once bed available Otherwise as above Subjective Edward is doing well this morning. He does state that he is a little lightheaded when he goes from seated to standing. States that his abdominal pain has completely resolved after his BM yesterday. Was able to eat breakfast. Review of Systems Review of Systems: As per above Physical Exam Physical Exam: Constitutional: well-appearing, no acute distress HEENT: NCAT, no conjunctival injection CV: regular rhythm, no murmur appreciated, extremities well-perfused, no LE edema Resp: CTABL, Diffuse inspiratory/expatory wheezes/rales/rhonchi appreciated, no increased work of breathing GI: soft, nondistended, nontender, BS normoactive MSK: no gross deformities appreciated, B/L BKA Skin: warm, dry, no rash appreciated Neuro: alert, oriented, no focal neurologic deficit appreciated Results & Data Results & Data ([facility]) Vital Signs (Past 12 Hours) Vital Signs Temp Pulse Pulse Resp BP BP Pulse Ox 03/19/22 06:20 102/62 92 03/19/22 05:58 113/69 95 03/19/22 05:02 36.3 C L 74 18 100/61 94 03/19/22 04:37 97/61 L 03/19/22 04:20 94/57 L 03/19/22 03:56 63 18 96 03/19/22 03:40 94/57 L 03/19/22 03:00 72 18 95/59 L 93 03/19/22 02:30 18 93/55 L 92 03/19/22 01:16 64 03/19/22 01:13 70 80/49 L 72/49 L 03/19/22 00:25 03/19/22 00:13 80/55 L 03/18/22 23:32 36.5 C 65 18 96/62 L 92/58 L 92 03/18/22 20:07 72 18 92 03/18/22 19:33 36.5 C 74 20 122/74 94 O2 Del Method O2 Flow Rate 03/19/22 06:20 Nasal Cannula 1 03/19/22 05:58 Nasal Cannula 2 03/19/22 05:02 Oxymask 2 03/19/22 04:37 03/19/22 04:20 03/19/22 03:56 Oxymask 2 03/19/22 03:40 03/19/22 03:00 Nasal Cannula 03/19/22 02:30 Nasal Cannula 03/19/22 01:16 03/19/22 01:13 03/19/22 00:25 Nasal Cannula 1 03/19/22 00:13 03/18/22 23:32 Nasal Cannula 1 03/18/22 20:07 Nasal Cannula 1 03/18/22 19:33 Nasal Cannula 1 (1) HTN (hypertension) Hypertension type: essential hypertension Qualified Code(s): I10 - Essential (primary) hypertension
[2022-03-19] MEDS: FORMOTEROL 20 MCG/2 ML VIAL NEB SCH ×2 (07:20→19:14)
[2022-03-19] MEDS: SODIUM CHLOR 7% 4 ML NEB NEB SCH ×2 (07:20→19:14)
[2022-03-19] MEDS: BUDESONIDE 0.5 MG/2 ML VIAL (PULMICORT) NEB SCH ×2 (07:20→19:14)
[2022-03-19] MEDS: CARBIDOPA/LEVODOPA 25/100MG TAB PO SCH ×3 (08:00→19:58)
[2022-03-19] MEDS: SERTRALINE HCL 100 MG TABLET PO SCH ×2 (08:03→19:58)
[2022-03-19] MEDS: buPROPion XL 150 MG TABCR PO SCH (08:04)
[2022-03-19] MEDS: ATORVASTATIN 10 MG TAB PO SCH (08:04)
[2022-03-19] MEDS: PANTOprazole 40 MG TAB PO SCH (08:04)
[2022-03-19] MEDS: FAMOTIDINE 20 MG TAB PO SCH ×2 (08:04→19:59)
[2022-03-19] MEDS: MONTELUKAST SODIUM 10 MG TABLET PO SCH (08:04)
[2022-03-19] MEDS: busPIRone 7.5 MG TAB PO SCH ×3 (08:05→19:59)
[2022-03-19] MEDS: APIXABAN 5 MG TABLET PO SCH ×2 (08:05→19:59)
[2022-03-19] MEDS: FINASTERIDE 5 MG TAB PO SCH (08:05)
[2022-03-19] MEDS: POLYETHYLENE (MIRALAX) 17 GM PACK PO SCH (08:05)
[2022-03-19] MEDS: MEMANTINE HCL 5 MG TAB PO SCH (08:05)
[2022-03-19] MEDS: PREGABALIN 75 MG CAP PO SCH ×2 (08:07→19:58)
[2022-03-19] MEDS: CYCLOBENZAPRINE HCL 10 MG TAB PO SCH ×2 (08:07→19:58)
[2022-03-19 08:18] LABS: Hematocrit (blood only) 32.2 % (40.1-51.0); Hemoglobin 10.1 g/dl (14.0-18.0); Mean Corpuscular Hemoglobin 29.4 pg (25.0-34.0); Mean Corpuscular Hgb Conc 31.4 g/dL (32.0-36.0); Mean Corpuscular Volume 93.9 fL (80.0-100.0); Platelet Count 176 K/uL (130-400); RDW Coefficient of Variation 15.6 % (11.5-14.5); RDW Standard Deviation 53.7 fL (36.4-46.3); Red Blood Count 3.43 M/uL (4.63-6.08); White Blood Count 5.44 K/ul (4.8-10.8)
[2022-03-19] MEDS ORDERED: methylPREDNISolone 60 MG in SYRINGE 0 ML IV SCH (09:00)
[2022-03-19 09:12] LABS: Bilirubin,Total 0.5 mg/dl (0.2-1.0); Calcium 7.6 mg/dl (8.5-10.1); Potassium 4.4 mmol/L (3.5-5.1)
[2022-03-19 09:18] LABS: Albumin Globulin Ratio 1.3 (0.9-2); BUN Creatinine Ratio 34.6 (10-20); Creatinine Clr Calc Pharmacy 42.8 ml/min; Est GFR (African American) 47.7 ml/min; Est GFR (Non-African American) 41.2 ml/min; Globulin 2.3 gm/dl (2.5-4.0); Total Protein 5.3 gm/dl (6.0-8.3)
--- NOTE | 2022-03-19 18:23 | Billing Data ---
Date of Service March 19, 2022 Coding Level of Care Code 56991 SUB INP/OBS CARE
[2022-03-19] MEDS: traZODone HCL 50 MG TAB PO SCH (20:00)
[2022-03-20] MEDS: SODIUM CHLORIDE 0.9% 500 ML IV SCH ×5 (00:25→22:44)
[2022-03-20] MEDS: ALBUT/IPRATROP 3MG/0.5MG NEB 3 ML VIAL NEB SCH ×6 (02:34→22:06)
--- NOTE | 2022-03-20 06:40 | Hospitalist Progress Note ---
Date of Service March 20, 2022 Assessment & Plan (1) Influenza A: (2) Acute respiratory failure with hypoxia: (3) HTN (hypertension): (4) VIK on CPAP: (5) Paroxysmal atrial fibrillation: (6) PTSD (post-traumatic stress disorder): (7) Asthma exacerbation: Plan #Acute Hypoxemic Repository Failure secondary to Asthma exacerbation and Influenza -Patient has h/o allergic asthma dx back around [address] Pozo back on 05/2015 -Tested positive for influenza on admission -Will transitioned from Solu-Medrol 60mg daily to 60mg prednisone PO daily with a plan to taper with 60mg x2 days, 50mg x2 days, 40mg x 2days, 30mg x2 days, 20mg x 2days, 10 mg x 2 days -DuoNeb Q4H while awake. -Continue Perforomist twice daily, and Budesonide nebulizer twice daily. -Completed 5 day course Azithromycin on 03/17 -Pulmonary consulted. -O2 goal of 88-92%; continue to wean oxygen as tolerated -May need repeat PFT's as an outpatient. #Hypovolemia - Was hypotensive on 03/19; improved with fluids - Creatine went from 1.62 to 0.98 with fluids - continue NS at 80ml/hr; reassess tomorrow if tolerating good PO could stop #Influenza A -Droplet isolation precautions -Completed 5 day course of Tamiflu on 03/17 #Chronic HTN (hypertension) -Continue his home medication regimen with furosemide 20 mg p.o. daily, lisinopril 5 mg p.o. daily, metoprolol tartrate 12.5 mg p.o. twice daily #VIK on CPAP -Non compliant with CPAP at home -BiPAP HS during his admission #Paroxysmal atrial fibrillation -Continue anticoagulation with apixaban 5 mg p.o. twice daily -Currently in normal sinus rhythm #PTSD (post-traumatic stress disorder): -Do not wake patient by touching, only saying his name -Continue sertraline, prazosin, bupropion #B/L BKA -Patient can use prosthesis with walking. -PT ordered for patient. #epigastric pain -resolved; likely secondary to constipation/ileus Fluids: NSS 80ml/hr Nutrition: heart healthy Code status: DNR/DNI DVT ppx: Eliquis Dispo: Plan for rehab upon discharge. Referrals have been placed. Admission and Anticipated Discharge Date Admission Date: March 12, 2022 Supervising Physician Co-Signing Physician Notes I personally examined the patient and verified all weeks points of history and exam, discussed case, and agree with decision making with Dr Shaw A little bit of tightness in his chest. Figures a nebulizer will help. Demonstrated incentive spirometryafter some coaching he was able to do it with proficiency. Did fairly well with OT today. Hopeful for rehab tomorrow. Vitals noted, in general he is awake and alert pleasant no distress. Lungs overall clear. Mild expiratory rhonchi, no clear wheezing, good air entry throughout. Abdomen soft mildly distended not really tender anywhere Flu and subsequent asthma exacerbation-improving overall, continue to slowly taper steroids, continue nebulizers and supportive care. Coached on better inc entive spirometry use. Abdominal discomfort and bloatingprobably ileus. Improving. Continue bowel regimen. Tolerating diet Deconditioning/weaknessfor rehab once bed available Otherwise as above Subjective Edward is doing well this morning, no complainants. He states that he had a bowel movement yesterday, did notice some abdominal cramping, but resolved with BM. Still feels as though he has some dyspnea, but improving. He would like to go to rehab upon discharge. Review of Systems Review of Systems: As per above Physical Exam Physical Exam: Constitutional: well-appearing, no acute distress HEENT: NCAT, no conjunctival injection CV: regular rhythm, no murmur appreciated, extremities well-perfused, no LE edema Resp: CTABL, Diffuse expiatory wheezes, no rales/rhonchi appreciated, no increased work of breathing. Good air movement GI: soft, nondistended, nontender, BS normoactive MSK: no gross deformities appreciated, B/L BKA Skin: warm, dry, no rash appreciated Neuro: alert, oriented, no focal neurologic deficit appreciated Results & Data Results & Data ([facility]) Vital Signs (Past 12 Hours) Vital Signs Temp Pulse Pulse Resp BP BP Pulse Ox 03/20/22 02:17 36.4 C L 70 18 128/73 93 03/19/22 23:44 76 03/19/22 23:03 36.7 C 76 20 128/65 93 03/19/22 22:11 79 18 95 03/19/22 19:35 36.6 C 76 18 106/65 94 03/19/22 19:15 56 L 18 98 O2 Del Method O2 Flow Rate 03/20/22 02:17 Nasal Cannula 1 03/19/22 23:44 03/19/22 23:03 Nasal Cannula 1 03/19/22 22:11 Nasal Cannula 1 03/19/22 19:35 Nasal Cannula 1 03/19/22 19:15 Nasal Cannula 2 Resident Activity Tracking Resident Involvement: Resident Care Provided Care Provided: Adult Hospital Medicine (1) HTN (hypertension) Hypertension type: essential hypertension Qualified Code(s): I10 - Essential (primary) hypertension
[2022-03-20] MEDS: BUDESONIDE 0.5 MG/2 ML VIAL (PULMICORT) NEB SCH ×2 (07:01→19:09)
[2022-03-20] MEDS: SODIUM CHLOR 7% 4 ML NEB NEB SCH ×2 (07:02→19:10)
[2022-03-20] MEDS: FORMOTEROL 20 MCG/2 ML VIAL NEB SCH ×2 (07:02→19:09)
[2022-03-20 07:07] LABS: Basophils # (auto) 0.01 K/uL (0-0.2); Basophils % (auto) 0.2 %; Eosinophils # (auto) 0.01 K/uL (0-0.50); Eosinophils % (auto) 0.2 %; Hemoglobin 10.7 g/dl (14.0-18.0); Immature Granulocytes % (auto) 2.3 %; Lymphocytes # (auto) 0.49 K/uL (1.2-3.4); Lymphocytes % (auto) 11.2 %; Mean Corpuscular Hemoglobin 29.1 pg (25.0-34.0); Mean Corpuscular Hgb Conc 31.5 g/dL (32.0-36.0); Mean Corpuscular Volume 92.4 fL (80.0-100.0); Mean Platelet Volume 10.1 fL (9.4-12.4); Monocytes % (auto) 9.1 %; Neutrophils # (auto) 3.38 K/uL (1.4-6.5); Platelet Count 207 K/uL (130-400); RDW Coefficient of Variation 15.4 % (11.5-14.5); RDW Standard Deviation 52.4 fL (36.4-46.3); Red Blood Count 3.68 M/uL (4.63-6.08); White Blood Count 4.39 K/ul (4.8-10.8)
[2022-03-20] MEDS: CARBIDOPA/LEVODOPA 25/100MG TAB PO SCH ×3 (07:17→19:46)
[2022-03-20] MEDS: POLYETHYLENE (MIRALAX) 17 GM PACK PO SCH (07:21)
[2022-03-20] MEDS: PREGABALIN 75 MG CAP PO SCH ×2 (07:44→19:46)
[2022-03-20] MEDS: APIXABAN 5 MG TABLET PO SCH ×2 (07:46→19:45)
[2022-03-20] MEDS: buPROPion XL 150 MG TABCR PO SCH (07:46)
[2022-03-20] MEDS: FINASTERIDE 5 MG TAB PO SCH (07:47)
[2022-03-20] MEDS: FAMOTIDINE 20 MG TAB PO SCH ×2 (07:47→19:46)
[2022-03-20] MEDS: MONTELUKAST SODIUM 10 MG TABLET PO SCH (07:47)
[2022-03-20] MEDS: predniSONE 20 MG TAB PO SCH (07:48)
[2022-03-20] MEDS: busPIRone 7.5 MG TAB PO SCH ×3 (07:48→19:45)
[2022-03-20] MEDS: PANTOprazole 40 MG TAB PO SCH (07:49)
[2022-03-20] MEDS: ATORVASTATIN 10 MG TAB PO SCH (07:49)
[2022-03-20] MEDS: SERTRALINE HCL 100 MG TABLET PO SCH ×2 (07:50→19:47)
[2022-03-20] MEDS: MEMANTINE HCL 5 MG TAB PO SCH (07:50)
[2022-03-20] MEDS: CYCLOBENZAPRINE HCL 10 MG TAB PO SCH ×2 (07:52→19:45)
[2022-03-20 07:58] LABS: Albumin Level 3.1 gm/dl (3.4-5.0); Bilirubin,Total 0.4 mg/dl (0.2-1.0); Calcium 7.8 mg/dl (8.5-10.1); Potassium 4.4 mmol/L (3.5-5.1)
[2022-03-20 08:05] LABS: Albumin Globulin Ratio 1.2 (0.9-2); BUN Creatinine Ratio 32.7 (10-20); Est GFR (African American) 87.7 ml/min; Est GFR (Non-African American) 75.6 ml/min; Globulin 2.5 gm/dl (2.5-4.0); Total Protein 5.6 gm/dl (6.0-8.3)
--- NOTE | 2022-03-20 14:02 | Billing Data ---
Date of Service March 20, 2022 Coding Level of Care Code 01966 SUB INP/OBS CARE MIN
--- NOTE | 2022-03-20 14:34 | Pulmonology Progress Note ---
Date of Service March 20, 2022 Assessment & Plan (1) Bronchiolitis due to influenza virus: Plan: He has infectious bronchiolitis secondary to influenza. He likely has some degree of underlying asthmatic bronchitis. He needs outpatient PFTs and NIOX testing. Continue to taper systemic corticosteroids. Continue percussive therapy and hypertonic saline to promote mucociliary clearance. Continue nebulized Brovana and budesonide. Largely treatment for this is symptomatic support. He will likely take several days to be ready for discharge and perhaps several weeks to recover to his baseline. (2) Hypoxemia: Plan: Continue to titrate oxygen to maintain saturation of 88 to 92%. He also carries a history of VIK, but apparently is not compliant with therapy. Would recommend retrialing him on CPAP while in the hospital. Plan No other specific recommendations at this time. Pulmonary to sign off. Please call with questions. Admission and Anticipated Discharge Date Admission Date: March 12, 2022 Subjective He continues to have shortness of breath with exertion and wheeze. He does not note any significant improvement compared to the last 2 days. Review of Systems Review of Systems: All systems reviewed & are unremarkable except as noted in HPI & below Physical Exam Physical Exam: Constitutional: Patient appears to be of their stated age. Patient is in no apparent distress. Patient is well-developed. Eyes: Pupils are equal round and reactive to light. Conjunctivae are normal. Anicteric sclera. Ears nose, mouth and throat: Deferred. Neck: Trachea is midline. Visual inspection is normal. Respiratory: Diffuse rhonchi and wheezing bilaterally. Prolonged phase of exhalation. No significant tachypnea. Cardiovascular: Regular rate and rhythm. No murmurs. No edema. Gastrointestinal: Normal bowel sounds, soft, nontender and nondistended. No hepatosplenomegaly noted. Musculoskeletal: No cyanosis. Patient is able to move all extremities. Strength is 5 out of 5 in the upper and lower extremities. Skin: No rashes, warm dry and intact. Neurologic: No obvious focal neurological deficits seen. Psychiatric: Alert and oriented x3 with a euthymic affect. Results & Data Results & Data ([facility]) Vital Signs (Past 12 Hours) Vital Signs Temp Pulse Resp BP Pulse Ox O2 Del Method O2 Flow Rate 03/20/22 11:43 36.7 C 71 18 118/68 91 Nasal Cannula 2 03/20/22 10:40 79 18 88 L Room Air 03/20/22 07:39 37.0 C 67 18 111/65 93 Nasal Cannula 2 03/20/22 07:02 65 18 93 Nasal Cannula 1 PG Care Time/CCT Total # of Minutes Spent Total Time Spent with Patient: Total time spent is greater than 50% in coordination of care (as documented) at patient's floor/unit and/or counseling patient: Coding Level of Care Code 67407 SUB INP/OBS CARE 2/35MIN Diagnoses Bronchiolitis due to influenza virus J11.1 Hypoxemia R09.02
[2022-03-20] MEDS: traZODone HCL 50 MG TAB PO SCH (21:43)
[2022-03-21] MEDS: ALBUT/IPRATROP 3MG/0.5MG NEB 3 ML VIAL NEB SCH ×7 (02:31→23:45)
[2022-03-21] MEDS: SODIUM CHLORIDE 0.9% 500 ML IV SCH ×2 (05:51→12:17)
[2022-03-21] MEDS: BUDESONIDE 0.5 MG/2 ML VIAL (PULMICORT) NEB SCH ×2 (06:51→19:22)
[2022-03-21] MEDS: FORMOTEROL 20 MCG/2 ML VIAL NEB SCH ×2 (06:51→19:23)
[2022-03-21] MEDS: SODIUM CHLOR 7% 4 ML NEB NEB SCH ×2 (06:51→19:23)
--- NOTE | 2022-03-21 07:00 | Hospitalist Progress Note ---
Date of Service March 21, 2022 Assessment & Plan (1) Influenza A: (2) Acute respiratory failure with hypoxia: (3) HTN (hypertension): (4) VIK on CPAP: (5) Paroxysmal atrial fibrillation: (6) PTSD (post-traumatic stress disorder): (7) Asthma exacerbation: Plan Addison is a 76 year old male with history of asthma, COPD, PAD, HTN, pAFib, VIK, back pain, DDD, BPH, PTSD, and prior MRSA who is admitted for Acute Hypoxemic Respiratory Failure 2/2 Influenza + Asthma exacerbation. Acute Hypoxemic Repository Failure/ Bronchiolitis - Likely 2/2 Asthma Exacerbation + Influenza infection - Patient has h/o allergic asthma (dx 2005) - Tested positive for influenza on admission - Will transitioned from Solu-Medrol 60mg daily to 60mg prednisone PO daily with a plan to taper * 60mg x2 days, 50mg x2 days, 40mg x 2days, 30mg x2 days, 20mg x 2days, 10 mg x 2 days - DuoNeb Q4H while awake. - Continue Perforomist twice daily, and Budesonide nebulizer twice daily. - Completed 5 day course Azithromycin and Tamiflu on 03/17 - Pulmonary consulted * Outpatient PFTs and NIOX testing * Continue to taper systemic corticosteroids and nebulized Brovana and budesonide. * He will likely take several days to be ready for discharge and perhaps several weeks to recover to his baseline. * Hypoxemia: Continue to titrate oxygen to maintain saturation of 88 to 92%. * Retitrate CPAP inpatient Hypovolemia - Was hypotensive on 03/19; improved with fluids - Creatine went from 1.62 to 0.98 with fluids --- d/c IVF, tollerating PO well Influenza A -Droplet isolation precautions -Completed 5 day course of Tamiflu on 03/17 Chronic HTN (hypertension) -Continue his home medication regimen with furosemide 20 mg p.o. daily, lisinopril 5 mg p.o. daily, metoprolol tartrate 12.5 mg p.o. twice daily --- Follow BP, mildly hypotensive 03/21 VIK on CPAP -Non compliant with CPAP at home -BiPAP HS during his admission Paroxysmal atrial fibrillation -Continue anticoagulation with apixaban 5 mg p.o. 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 -PT ordered for patient. Epigastric pain -resolved; likely secondary to constipation/ileus Fluids: No IVF Nutrition: heart healthy Code status: DNR/DNI DVT ppx: Eliquis Dispo: jose luis Webb Monday (per CM) Admission and Anticipated Discharge Date Admission Date: March 12, 2022 Supervising Physician Co-Signing Physician Notes Patient seen and examined, chart reviewed, case discussed with Dr. Andi Greenfield and Dr. Violet Cooley. I agree with the assessment and plan. Subjective Addison is feeling improved this morning, he states that he is still somewhat dyspneic, but it is improving. He denies chest pain or pleuritic pain. He notes that he has been able to eat well without nausea or emesis. He denies fevers or chills. Review of Systems Review of Systems: As per above Physical Exam Physical Exam: Constitutional: well-appearing, no acute distress CV: regular rhythm, no murmur appreciated, extremities well-perfused, no LE edema Resp: No increased respiratory effort, diffuse rhonchi and wheezing bilaterally GI: soft, nondistended, nontender, BS normoactive MSK: no gross deformities appreciated, B/L BKA Skin: warm, dry, no rash appreciated Neuro: alert, oriented, no focal neurologic deficit appreciated Results & Data Results & Data ([facility]) Vital Signs (Past 12 Hours) Vital Signs Temp Pulse Pulse Resp BP BP Pulse Ox 03/21/22 06:52 74 17 88 L 03/21/22 04:11 36.4 C L 69 18 139/71 94 03/21/22 02:42 68 16 94 03/21/22 00:17 36.6 C 77 16 116/67 91 03/20/22 23:05 74 03/20/22 22:07 74 16 94 03/20/22 19:42 36.9 C 78 20 114/72 93 03/20/22 19:12 78 16 96 O2 Del Method O2 Flow Rate 03/21/22 06:52 Nasal Cannula 1 03/21/22 04:11 Nasal Cannula 2 03/21/22 02:42 Nasal Cannula 1 03/21/22 00:17 Nasal Cannula 1 03/20/22 23:05 03/20/22 22:07 Nasal Cannula 1 03/20/22 19:42 Nasal Cannula 1 03/20/22 19:12 Nasal Cannula 1 Laboratory Results Abnormal lab results 03/21/22 03/21/22 Range/Units 07:34 07:34 RBC 3.69 L (4.63-6.08) M/uL Hgb 10.6 L (14.0-18.0) g/dl Hct 34.0 L (40.1-51.0) % MCHC 31.2 L (32.0-36.0) g/dL RDW Std Deviation 51.5 H (36.4-46.3) fL RDW Coeff of Hector 15.3 H (11.5-14.5) % Lymph # (Auto) 0.52 L (1.2-3.4) K/uL Immature Gran # (Auto) 0.07 H (0.00-0.02) K/uL Calcium 8.1 L (8.5-10.1) mg/dl AST 8 L (13-39) U/L ALT 6 L (7-52) U/L Total Protein 5.7 L (6.0-8.3) gm/dl Albumin 3.3 L (3.4-5.0) gm/dl Globulin 2.4 L (2.5-4.0) gm/dl Resident Activity Tracking Resident Involvement: Resident Care Provided Care Provided: Adult [facility] Medicine (1) HTN (hypertension) Hypertension type: essential hypertension Qualified Code(s): I10 - Essential (primary) hypertension
[2022-03-21] MEDS: POLYETHYLENE (MIRALAX) 17 GM PACK PO SCH (07:56)
[2022-03-21] MEDS: CARBIDOPA/LEVODOPA 25/100MG TAB PO SCH ×3 (07:56→20:30)
[2022-03-21 07:58] LABS: Basophils # (auto) 0.01 K/uL (0-0.2); Basophils % (auto) 0.2 %; Eosinophils # (auto) 0.01 K/uL (0-0.50); Eosinophils % (auto) 0.2 %; Hemoglobin 10.6 g/dl (14.0-18.0); Immature Granulocytes # (auto) 0.07 K/uL (0.00-0.02); Immature Granulocytes % (auto) 1.2 %; Lymphocytes # (auto) 0.52 K/uL (1.2-3.4); Lymphocytes % (auto) 8.7 %; Mean Corpuscular Hemoglobin 28.7 pg (25.0-34.0); Mean Corpuscular Hgb Conc 31.2 g/dL (32.0-36.0); Mean Corpuscular Volume 92.1 fL (80.0-100.0); Mean Platelet Volume 10.3 fL (9.4-12.4); Monocytes # (auto) 0.42 K/uL (0.24-0.82); Neutrophils # (auto) 4.93 K/uL (1.4-6.5); Neutrophils % (auto) 82.7 %; Platelet Count 218 K/uL (130-400); RDW Coefficient of Variation 15.3 % (11.5-14.5); RDW Standard Deviation 51.5 fL (36.4-46.3); Red Blood Count 3.69 M/uL (4.63-6.08); White Blood Count 5.96 K/ul (4.8-10.8)
[2022-03-21] MEDS: APIXABAN 5 MG TABLET PO SCH ×2 (07:59→20:30)
[2022-03-21] MEDS: PREGABALIN 75 MG CAP PO SCH ×2 (07:59→20:29)
[2022-03-21] MEDS: CYCLOBENZAPRINE HCL 10 MG TAB PO SCH ×2 (07:59→20:29)
[2022-03-21] MEDS: SERTRALINE HCL 100 MG TABLET PO SCH ×2 (08:00→20:30)
[2022-03-21] MEDS: ATORVASTATIN 10 MG TAB PO SCH (08:00)
[2022-03-21] MEDS: FAMOTIDINE 20 MG TAB PO SCH ×2 (08:00→20:29)
[2022-03-21] MEDS: MEMANTINE HCL 5 MG TAB PO SCH (08:00)
[2022-03-21] MEDS: MONTELUKAST SODIUM 10 MG TABLET PO SCH (08:00)
[2022-03-21] MEDS: buPROPion XL 150 MG TABCR PO SCH (08:00)
[2022-03-21] MEDS: busPIRone 7.5 MG TAB PO SCH ×3 (08:00→20:29)
[2022-03-21] MEDS: FINASTERIDE 5 MG TAB PO SCH (08:00)
[2022-03-21] MEDS: PANTOprazole 40 MG TAB PO SCH (08:00)
[2022-03-21] MEDS: HYDROXYUREA 500 MG CAP PO SCH (08:01)
[2022-03-21] MEDS: predniSONE 20 MG TAB PO SCH (08:01)
[2022-03-21 09:51] LABS: Albumin Globulin Ratio 1.4 (0.9-2); Albumin Level 3.3 gm/dl (3.4-5.0); Bilirubin,Total 0.5 mg/dl (0.2-1.0); Calcium 8.1 mg/dl (8.5-10.1); Creatinine Clr Calc Pharmacy 82.8 ml/min; Est GFR (Non-African American) 86.3 ml/min; Globulin 2.4 gm/dl (2.5-4.0); Potassium 3.7 mmol/L (3.5-5.1); Total Protein 5.7 gm/dl (6.0-8.3)
[2022-03-21] MEDS: traZODone HCL 50 MG TAB PO SCH (23:38)
[2022-03-22] MEDS: ALBUT/IPRATROP 3MG/0.5MG NEB 3 ML VIAL NEB SCH ×6 (03:31→22:58)
[2022-03-22] MEDS: SODIUM CHLOR 7% 4 ML NEB NEB SCH ×2 (06:57→19:14)
[2022-03-22] MEDS: FORMOTEROL 20 MCG/2 ML VIAL NEB SCH ×2 (06:57→19:14)
[2022-03-22] MEDS: BUDESONIDE 0.5 MG/2 ML VIAL (PULMICORT) NEB SCH ×2 (06:57→19:14)
--- NOTE | 2022-03-22 07:22 | Hospitalist Progress Note ---
Date of Service March 22, 2022 Assessment & Plan (1) Influenza A: (2) Acute respiratory failure with hypoxia: (3) HTN (hypertension): (4) VIK on CPAP: (5) Paroxysmal atrial fibrillation: (6) PTSD (post-traumatic stress disorder): (7) Asthma exacerbation: Plan Addison is a 76 year old male with history of asthma, COPD, PAD, HTN, pAFib, VIK, back pain, DDD, BPH, PTSD, and prior MRSA who is admitted for Acute Hypoxemic Respiratory Failure 2/2 Influenza + Asthma exacerbation. Acute Hypoxemic Repository Failure/ Bronchiolitis - Likely 2/2 Asthma Exacerbation + Influenza infection - Patient has h/o allergic asthma (dx 2005) - Tested positive for influenza on admission - Will transitioned from Solu-Medrol 60mg daily to 60mg prednisone PO daily with a plan to taper * 60mg x2 days, 50mg x2 days, 40mg x 2days, 30mg x2 days, 20mg x 2days, 10 mg x 2 days - DuoNeb Q4H while awake. - Continue Perforomist twice daily, and Budesonide nebulizer twice daily. - Completed 5 day course Azithromycin and Tamiflu on 03/17 - Pulmonary consulted * Outpatient PFTs and NIOX testing * Continue to taper systemic corticosteroids and nebulized Brovana and budesonide. * He will likely take several days to be ready for discharge and perhaps several weeks to recover to his baseline. * Hypoxemia: Continue to titrate oxygen to maintain saturation of 88 to 92%. * Retitrate CPAP inpatient --- Ongoing improvement, continue as above Hypovolemia - Was hypotensive on 03/19; improved with fluids - Creatine went from 1.62 to 0.98 with fluids --- Continues to tolerate PO well Influenza A -Droplet isolation precautions -Completed 5 day course of Tamiflu on 03/17 Chronic HTN (hypertension) -Continue his home medication regimen with furosemide 20 mg p.o. daily, lisinopril 5 mg p.o. daily, metoprolol tartrate 12.5 mg p.o. twice daily --- BP stable, continue to follow VIK on CPAP -Non compliant with CPAP at home -BiPAP HS during his admission Paroxysmal atrial fibrillation -Continue anticoagulation with apixaban 5 mg p.o. 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 -PT ordered for patient. --- Patient has ambulated w/ prosthesis, mild dyspnea, remains stable on room air Epigastric pain - Resolved Fluids: No IVF Nutrition: heart healthy Code status: DNR/DNI DVT ppx: Eliquis Dispo: jose luis Webb Monday (per CM) Admission and Anticipated Discharge Date Admission Date: March 12, 2022 Supervising Physician Co-Signing Physician Notes Patient seen and examined, chart reviewed, case discussed with Dr. Andi Greenfield and Dr. Violet Cooley. I agree with the assessment and plan. Subjective 03/22:Edward continues to improve. He notes that his dyspnea is overall improving, but he still have some with activity. He denies chest pain or pleuritic pain. He continus to eat and hydrate well without nausea or emesis. Denies fevers or chills. Review of Systems Review of Systems: As per above Physical Exam Physical Exam: Constitutional: Well appearing, no acute distress CV: regular rhythm, no murmur appreciated, extremities well-perfused, no LE edema Resp: No increased respiratory effort, faint rhonchi throughout, wheezing bilaterally GI: soft, nondistended, nontender, BS normoactive MSK: no gross deformities appreciated, B/L BKA Skin: warm, dry, no rash appreciated Neuro: alert, oriented, no focal neurologic deficit appreciated Results & Data Results & Data ([facility]) Vital Signs (Past 12 Hours) Vital Signs Temp Pulse Pulse Resp BP BP Pulse Ox 03/22/22 06:57 75 18 92 03/22/22 03:37 154/79 H 03/22/22 03:25 36.7 C 74 18 121/44 L 92 03/21/22 22:37 84 03/21/22 22:11 37 C 83 20 158/82 H 93 03/21/22 23:46 85 18 91 03/21/22 22:22 03/21/22 19:23 80 18 93 O2 Del Method 03/22/22 06:57 Room Air 03/22/22 03:37 03/22/22 03:25 Room Air 03/21/22 22:37 03/21/22 22:11 Room Air 03/21/22 23:46 Room Air 03/21/22 22:22 Room Air, CPAP 03/21/22 19:23 Room Air Resident Activity Tracking Resident Involvement: Resident Care Provided Care Provided: Adult Hospital Medicine (1) HTN (hypertension) Hypertension type: essential hypertension Qualified Code(s): I10 - Essential (primary) hypertension
[2022-03-22 07:23] LABS: Hemoglobin 10.7 g/dl (14.0-18.0); Mean Corpuscular Hemoglobin 29.2 pg (25.0-34.0); Mean Corpuscular Hgb Conc 32.4 g/dL (32.0-36.0); Mean Corpuscular Volume 89.9 fL (80.0-100.0); Platelet Count 237 K/uL (130-400); RDW Coefficient of Variation 15.5 % (11.5-14.5); Red Blood Count 3.67 M/uL (4.63-6.08); White Blood Count 6.95 K/ul (4.8-10.8)
[2022-03-22 08:02] LABS: Calcium 8.5 mg/dl (8.5-10.1); Potassium 3.7 mmol/L (3.5-5.1)
[2022-03-22 08:07] LABS: BUN Creatinine Ratio 18.3 (10-20); Creatinine Clr Calc Pharmacy 75.1 ml/min; Est GFR (African American) 93.4 ml/min; Est GFR (Non-African American) 80.6 ml/min
[2022-03-22] MEDS: PANTOprazole 40 MG TAB PO SCH (08:08)
[2022-03-22] MEDS: buPROPion XL 150 MG TABCR PO SCH (08:09)
[2022-03-22] MEDS: busPIRone 7.5 MG TAB PO SCH ×3 (08:09→21:13)
[2022-03-22] MEDS: MONTELUKAST SODIUM 10 MG TABLET PO SCH (08:09)
[2022-03-22] MEDS: ATORVASTATIN 10 MG TAB PO SCH (08:09)
[2022-03-22] MEDS: CARBIDOPA/LEVODOPA 25/100MG TAB PO SCH ×3 (08:09→21:13)
[2022-03-22] MEDS: MEMANTINE HCL 5 MG TAB PO SCH (08:10)
[2022-03-22] MEDS: predniSONE 20 MG TAB PO SCH (08:10)
[2022-03-22] MEDS: HYDROXYUREA 500 MG CAP PO SCH (08:10)
[2022-03-22] MEDS: APIXABAN 5 MG TABLET PO SCH ×2 (08:10→21:14)
[2022-03-22] MEDS: POLYETHYLENE (MIRALAX) 17 GM PACK PO SCH (08:11)
[2022-03-22] MEDS: FINASTERIDE 5 MG TAB PO SCH (08:12)
[2022-03-22] MEDS: FAMOTIDINE 20 MG TAB PO SCH ×2 (08:12→21:14)
[2022-03-22] MEDS: SERTRALINE HCL 100 MG TABLET PO SCH ×2 (08:12→21:14)
[2022-03-22] MEDS: PREGABALIN 75 MG CAP PO SCH ×2 (08:16→21:16)
[2022-03-22] MEDS: CYCLOBENZAPRINE HCL 10 MG TAB PO SCH ×2 (08:16→21:16)
[2022-03-22] MEDS: traZODone HCL 50 MG TAB PO SCH (21:18)
[2022-03-23] MEDS: ALBUT/IPRATROP 3MG/0.5MG NEB 3 ML VIAL NEB SCH ×2 (02:45→07:13)
[2022-03-23] MEDS: SODIUM CHLOR 7% 4 ML NEB NEB SCH (07:13)
[2022-03-23] MEDS: BUDESONIDE 0.5 MG/2 ML VIAL (PULMICORT) NEB SCH (07:13)
[2022-03-23] MEDS: FORMOTEROL 20 MCG/2 ML VIAL NEB SCH (07:13)
[2022-03-23] MEDS: FINASTERIDE 5 MG TAB PO SCH (07:31)
[2022-03-23] MEDS: predniSONE 20 MG TAB PO SCH (07:31)
[2022-03-23] MEDS: buPROPion XL 150 MG TABCR PO SCH (07:31)
[2022-03-23] MEDS: PANTOprazole 40 MG TAB PO SCH (07:31)
[2022-03-23] MEDS: ATORVASTATIN 10 MG TAB PO SCH (07:31)
[2022-03-23] MEDS: CARBIDOPA/LEVODOPA 25/100MG TAB PO SCH (07:32)
[2022-03-23] MEDS: FAMOTIDINE 20 MG TAB PO SCH (07:32)
[2022-03-23] MEDS: HYDROXYUREA 500 MG CAP PO SCH (07:32)
[2022-03-23] MEDS: MEMANTINE HCL 5 MG TAB PO SCH (07:32)
[2022-03-23] MEDS: busPIRone 7.5 MG TAB PO SCH (07:33)
[2022-03-23] MEDS: POLYETHYLENE (MIRALAX) 17 GM PACK PO SCH (07:33)
[2022-03-23] MEDS: APIXABAN 5 MG TABLET PO SCH (07:33)
[2022-03-23] MEDS: SERTRALINE HCL 100 MG TABLET PO SCH (07:33)
[2022-03-23] MEDS: MONTELUKAST SODIUM 10 MG TABLET PO SCH (07:33)
--- NOTE | 2022-03-23 07:38 | Discharge Summary ---
Date of Service March 23, 2022 Admission HPI Per Admitting Provider Addison De Los Santos is a 76 year old male with COPD who presents to the ER via EMS with respiratory distress. 2 days of productive cough with green/yellow sputum, chest tightness, shortness of breath. O2 sat 78% on room air on arrival by EMS. Fever last night. No chest pain, sinus pain, nasal congestion, abdominal pain, diarrhea, headache, urinary symptoms. In the ER he tested positive for influenza A which was treated with Tamiflu 75 mg p.o. He was given DuoNeb with good effect and improvement in his breathing. Due to work of breathing he was placed on BiPAP. He was referred to medicine for admission ongoing management of COPD exacerbation and influenza a. Admission Exam Per Admitting Provider Constitutional: well developed and + acute distress; + not well nourished Eyes: + anicteric sclerae; normal pupil size Respiratory: + respiratory distress, + labored breath ing, + uses accessory muscles, + cough, able to speak in complete sentences, + prolonged expiratory phase and + pursed lip breathing; + abnormal respiratory effort and no stridor Auscultation: + wheezes (expiratory throughout); breath sounds present, no diminished lung sounds, no crackles, no rales and no rhonchi Cardiovascular: Rate/Rhythm: regular rate and regular rhythm Heart Sounds: no murmur Extremities: normal capillary refill; no calf tenderness and no pedal edema Gastrointestinal (Abdomen): normal bowel sounds, soft, nontender, no hepatosplenomegaly Skin: no rashes, warm and dry Psychiatric: A+Ox3, euthymic affect Principal Diagnosis Acute Hypoxic Respiratory Failure Asthma Exacerbation Influenza Discharge Exam Constitutional: Well appearing, no acute distress CV: regular rhythm, no murmur appreciated, extremities well-perfused, no LE edema Resp: No increased respiratory effort, faint rhonchi throughout, wheezing bilaterally GI: soft, nondistended, nontender, BS normoactive MSK: no gross deformities appreciated, B/L BKA Skin: warm, dry, no rash appreciated Neuro: alert, oriented, no focal neurologic deficit appreciated Discharge Data Allergies Allergy/AdvReac Type Severity Reaction Status Date / Time ibuprofen Allergy Intermediate HIVES Verified 03/12/22 15:57 Consultations 03/12/22 14:06 ED Decision to Admit Stat 03/16/22 12:39 Consult Pulmonology Routine Hospital Course (1) Influenza A: (2) Acute respiratory failure with hypoxia: (3) HTN (hypertension): (4) VIK on CPAP: (5) Paroxysmal atrial fibrillation: (6) PTSD (post-traumatic stress disorder): (7) Asthma exacerbation: Plan Addison is a 76 year old male with history of asthma, COPD, PAD, HTN, pAFib, VIK, back pain, DDD, BPH, PTSD, and prior MRSA who is admitted for Acute Hypoxemic Respiratory Failure 2/2 Influenza + Asthma exacerbation. Acute Hypoxemic Repository Failure/ Bronchiolitis - Likely 2/2 Asthma Exacerbation + Influenza infection - Patient has h/o allergic asthma (dx 2005) - Tested positive for influenza on admission - Will transitioned from Solu-Medrol 60mg daily to 60mg prednisone PO daily with a plan to taper * 60mg x2 days, 50mg x2 days, 40mg x 2days, 30mg x2 days, 20mg x 2days, 10 mg x 2 days - DuoNeb Q4H while awake. - Continue Perforomist twice daily, and Budesonide nebulizer twice daily. - Completed 5 day course Azithromycin and Tamiflu on 03/17 - Pulmonary consulted * Outpatient PFTs and NIOX testing * Continue to taper systemic corticosteroids and nebulized Brovana and budesonide. * He will likely take several days to be ready for discharge and perhaps several weeks to recover to his baseline. * Hypoxemia: Continue to titrate oxygen to maintain saturation of 88 to 92%. * Retitrate CPAP inpatient --- Ongoing improvement, continue as above --- Stable for discharge Hypovolemia - Was hypotensive on 03/19; improved with fluids - Creatine went from 1.62 to 0.98 with fluids --- Continues to tolerate PO well Influenza A -Droplet isolation precautions -Completed 5 day course of Tamiflu on 03/17 Chronic HTN (hypertension) -Continue his home medication regimen with furosemide 20 mg p.o. daily, lisinopril 5 mg p.o. daily, metoprolol tartrate 12.5 mg p.o. twice daily --- BP stable, continue to follow VIK on CPAP -Non compliant with CPAP at home -BiPAP HS during his admission Paroxysmal atrial fibrillation -Continue anticoagulation with apixaban 5 mg p.o. 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 -PT ordered for patient. --- Patient has ambulated w/ prosthesis, mild dyspnea, remains stable on room air Epigastric pain - Resolved Fluids: No IVF Nutrition: heart healthy Code status: DNR/DNI DVT ppx: Elibenjamin Dispo: jose luis Webb Monday Total Time Total Time Spent Total Time Spent (In Minutes): see attending attestation Discharge Plan Discharge Items Patient Disposition: Transfer [facility] Fac Reason For Visit: ACUTE HYPOXIC RESPIRATORY FAILAURE,INFLUENZA Discharge Diagnosis: Acute Hypoxic Respiratory Failure Asthma Exacerbation Influenza Activity: Per Instructions section Non-emergency contact: Primary Care Provider Call non-emergency contact if: you have any medication questions and your temperature is above 101.5 Follow-up/Referrals: Taylor Brannon M.D. [Primary Care Provider] - Diet: Heart Healthy Addtl Attending Provider Instructions: Addison is a 76 year old male with history of asthma, COPD, PAD, HTN, pAFib, VIK, back pain, DDD, BPH, PTSD, and prior MRSA who is admitted for Acute Hypoxemic Respiratory Failure 2/2 Influenza + Asthma exacerbation. Acute Hypoxemic Repository Failure/ Bronchiolitis - Likely 2/2 Asthma Exacerbation + Influenza infection - Patient has h/o allergic asthma (dx 2005) - Tested positive for influenza on admission - Will transitioned from Solu-Medrol 60mg daily to 60mg prednisone PO daily with a plan to taper * 60mg x2 days, 50mg x2 days, 40mg x 2days, 30mg x2 days, 20mg x 2days, 10 mg x 2 days- DuoNeb Q4H while awake. - Continue Perforomist twice daily, and Budesonide nebulizer twice daily. - Completed 5 day course Azithromycin and Tamiflu on 03/17 - Pulmonary consulted * Outpatient PFTs and NIOX testing * Continue to taper systemic corticosteroids and nebulized Brovana and budesonide. * He will likely take several weeks to recover to his baseline. * Hypoxemia: Maintaining on room air * Retitrate CPAP --- Ongoing improvement, continue as above Hypovolemia - Was hypotensive on 03/19; improved with fluids - Creatine went from 1.62 to 0.98 with fluids --- Continues to tolerate PO well Influenza A -Droplet isolation precautions -Completed 5 day course of Tamiflu on 03/17 Chronic HTN (hypertension) -Continue his home medication regimen with furosemide 20 mg p.o. daily, lisinopril 5 mg p.o. daily, metoprolol tartrate 12.5 mg p.o. twice daily --- BP stable, continue to follow VIK on CPAP -Non compliant with CPAP at home -BiPAP HS during his admission Paroxysmal atrial fibrillation -Continue anticoagulation with apixaban 5 mg p.o. 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 -PT ordered for patient. --- Patient has ambulated w/ prosthesis, mild dyspnea, remains stable on room air Epigastric pain - Resolved Fluids: No IVF Nutrition: heart healthy Code status: DNR/DNI DVT ppx: Eliquis Dispo: jose luis Webb Monday (per CM) Pending Studies at Discharge: No Stand-Alone Forms: [facility] Skilled Items Patient informed of condition?: Yes DNR: Yes Discharge Level of Care: Skilled Communicable Disease: No Discharge Prognosis: Stable Lines: None Urinary Catheter: No Medications and DC Order Prescriptions: New ipratropium-albuterol 0.5 mg-3 mg(2.5 mg base)/3 mL Solution For Nebulization 3 ml NEB Q2H PRN (Reason: shortness of breath) 28 Days Qty: 180 0RF prednisone 20 mg Tablet 20 mg PO QAM 12 Days Qty: 42 0RF Rx Instructions: Taper: Take 60 mg (three tabs) for two days Take 50 mg (two and a half tabs) for two days Take 40 mg (two tabs) for two days Take 30 mg (1.5 tabs) for two days Take 20 mg (1 tabs) for two days Take 10 mg (a half tab) for two days Then discontinue. budesonide 0.5 mg/2 mL Suspension For Nebulization 0.5 mg NEB BIDR 28 Days Qty: 60 0RF formoterol fumarate [Perforomist] 20 mcg/2 mL Solution For Nebulization 20 mcg NEB BID 28 Days Qty: 112 0RF Continued cyclobenzaprine 10 mg Tablet 10 mg PO BID buspirone 5 mg Tablet 7.5 mg PO TID hydroxyurea 500 mg Capsule 1,000 mg PO .[id number] Rx Instructions: Take once a day on week days. atorvastatin 10 mg Tablet 10 mg PO DAILY sertraline 100 mg Tablet 100 mg PO BID prazosin 5 mg Capsule 5 mg PO HS pantoprazole 40 mg Tablet,Delayed Release (Dr/Ec) 40 mg PO DAILY trazodone 150 mg Tablet 150 mg PO HS montelukast 10 mg Tablet 10 mg PO DAILY lisinopril 5 mg Tablet 5 mg PO DAILY furosemide 20 mg Tablet 20 mg PO DAILY carbidopa-levodopa 25-100 mg Tablet 2 tab PO [facility] carbidopa-levodopa 25-100 mg Tablet 1 tab PO .DAILY @ NOON finasteride 5 mg Tablet 5 mg PO DAILY bupropion HCl 300 mg Tablet Extended Release 24 Hr 300 mg PO QAM memantine 5 mg Tablet 0 mg PO DAILY metoprolol tartrate 25 mg Tablet 12.5 mg PO BID Eliquis 5 mg Tablet 5 mg PO BID pregabalin 150 mg Capsule 150 mg PO BID albuterol sulfate 90 mcg/actuation Hfa Aerosol Inhaler 2 puff INHALATION Q4 PRN (Reason: Shortness Of Breath Or Wheezing) Spiriva with HandiHaler 18 mcg Capsule, W/Inhalation Device 1 cap INHALATION DAILY PRN (Reason: Shortness Of Breath Or Wheezing) Rx Instructions: puncture 1 cap using device; one dose = 2 inhalations budesonide-formoterol 160-4.5 mcg/actuation Hfa Aerosol Inhaler 2 puff INHALATION BID PRN (Reason: Shortness Of Breath Or Wheezing) Discharge Orders: Discharge Order (Routine); Ordered 03/23/22 Ordered By: Violet Cooley Admission Data Admit Date/Time: 03/12/22 14:31 Attending Provider: Fernie Rodriguez Admit Provider: Toño Harding Primary Care Provider: Taylor Brannon Other Providers: [facility] ; Hillary Santoyo ; [facility] ; Toño Harding ; [place] ; [facility] Other Interventions: Discharge Summary Assessment (RN) Last Done: 03/23/22 12:13 Supervising Physician Co-Signing Physician Notes Patient seen and examined, chart reviewed, case discussed with Dr. Andi Greenfield and Dr. Violet Cooley. I agree with the discharge summary as documented.
[2022-03-23] MEDS: PREGABALIN 75 MG CAP PO SCH (07:41)
[2022-03-23] MEDS: CYCLOBENZAPRINE HCL 10 MG TAB PO SCH (07:41)
[2022-03-23 11:18] LABS: Hematocrit (blood only) 36.2 % (40.1-51.0); Hemoglobin 11.5 g/dl (14.0-18.0); Mean Corpuscular Hemoglobin 29.2 pg (25.0-34.0); Mean Corpuscular Hgb Conc 31.8 g/dL (32.0-36.0); Mean Corpuscular Volume 91.9 fL (80.0-100.0); Mean Platelet Volume 9.8 fL (9.4-12.4); Platelet Count 256 K/uL (130-400); RDW Coefficient of Variation 15.8 % (11.5-14.5); RDW Standard Deviation 52.2 fL (36.4-46.3); Red Blood Count 3.94 M/uL (4.63-6.08); White Blood Count 8.34 K/ul (4.8-10.8)
[2022-03-23 11:45] LABS: BUN Creatinine Ratio 16.2 (10-20); Calcium 8.8 mg/dl (8.5-10.1); Creatinine Clr Calc Pharmacy 69.9 ml/min; Est GFR (African American) 86.6 ml/min; Est GFR (Non-African American) 74.7 ml/min; Potassium 3.5 mmol/L (3.5-5.1)
== END 2022-03-23 12:10 | DRG 193 ==
LOC: ED 12:07 → SUATTDRO 14:31 → 3E 14:31 → 2N 03-16 13:42
DX: E86.1 Hypovolemia; J10.1 Influenza due to other identified influenza virus with other respiratory manifestations; R07.9 Chest pain, unspecified; E87.4 Mixed disorder of acid-base balance; I73.9 Peripheral vascular disease, unspecified; Z89.511 Acquired absence of right leg below knee; J45.901 Unspecified asthma with (acute) exacerbation; Z79.01 Long term (current) use of anticoagulants; G47.33 Obstructive sleep apnea (adult) (pediatric); Z66 Do not resuscitate; F43.10 Post-traumatic stress disorder, unspecified; I10 Essential (primary) hypertension; Z89.512 Acquired absence of left leg below knee; I48.0 Paroxysmal atrial fibrillation; Z87.891 Personal history of nicotine dependence; J96.21 Acute and chronic respiratory failure with hypoxia

== ENCOUNTER 2022-06-01 14:07 | Inpatient (IN) ==
[2022-06-01] MEDS ORDERED: ALBUT/IPRATROP 3MG/0.5MG NEB 3 ML VIAL NEB ONE (14:18)
[2022-06-01] MEDS ORDERED: methylPREDNISolone 125 MG/2 ML VIAL IV STA (14:18)
--- NOTE | 2022-06-01 14:52 | XRay Report ---
XR chest 1V portable HISTORY: 76 years-old Male sob acute shortness of breath with confusion COMPARISON: Chest radiograph 03/16/2022 TECHNIQUE: AP view of the chest FINDINGS: Cardiac silhouette is enlarged. Unchanged right hemidiaphragmatic elevation. No pneumothorax, pleural effusion, airspace consolidation or pulmonary edema. Bones appear grossly intact. IMPRESSION: Cardiomegaly without acute process. ACT 112: Negative or not required by law. The above report was generated using voice recognition software. It may contain grammatical, syntax o r spelling errors. Electronically signed by: Natanael Valladares M.D. 06/01/2022 2:51 PM
[2022-06-01 14:55] LABS: Base Excess VBG 3.8 mEq/L; HCO3 VBG 31 mmol/L; Oxygen Saturation VBG < 60.0 %; PCO2 VBG 56 mmHg (38-50); PO2 VBG 34 mmHg; pH VBG 7.35 (7.36-7.41)
--- NOTE | 2022-06-01 15:00 | Emergency Department Note ---
History of Present Illness General Chief complaint: Shortness of Breath/Dyspnea Stated complaint: SOB Time Seen by Provider: 06/01/22 14:11 History of Present Illness Provider complaint: Shortness of breath abdominal pain Maximum Pain Intensity: 10 76-year-old male presents emergency department for shortness of breath and abdominal pain. Patient reports he is feeling that he is having difficulty breathing. Increased wheezing. Abdominal pain is located left lower quadrant. No vomiting or diarrhea. No fevers. No melena or hematochezia. Cough. No hemoptysis. Patient is on Eliquis. Home Medications Medication Instructions Recorded Confirmed Type albuterol sulfate 90 mcg/actuation 2 puff inhalation Q4 PRN Shortness 03/12/22 06/01/22 History aerosol inhaler Of Breath Or Wheezing apixaban 5 mg tablet (Eliquis) 5 mg PO BID 03/12/22 06/01/22 History atorvastatin 10 mg tablet 10 mg PO DAILY 03/12/22 06/01/22 History budesonide-formoterol HFA 160 2 puff inhalation BID PRN 03/12/22 06/01/22 History mcg-4.5 mcg/actuation aerosol Shortness Of Breath Or Wheezing inhaler bupropion HCl 300 mg 24 hr tablet, 300 mg PO QAM 03/12/22 06/01/22 History extended release buspirone 5 mg tablet 7.5 mg PO TID 03/12/22 06/01/22 History carbidopa 25 mg-levodopa 100 mg 1 tab PO .DAILY @ NOON 03/12/22 06/01/22 History tablet carbidopa 25 mg-levodopa 100 mg 2 tab PO AMHS 03/12/22 06/01/22 History tablet cyclobenzaprine 10 mg tablet 10 mg PO BID 03/12/22 06/01/22 History finasteride 5 mg tablet 5 mg PO DAILY 03/12/22 06/01/22 History furosemide 20 mg tablet 20 mg PO DAILY 03/12/22 06/01/22 History hydroxyurea 500 mg capsule 1,000 mg PO DIRECTED 03/12/22 06/01/22 History lisinopril 5 mg tablet 5 mg PO DAILY 03/12/22 06/01/22 History memantine 5 mg tablet 5 mg PO DAILY 03/12/22 06/01/22 History metoprolol tartrate 25 mg tablet 12.5 mg PO BID 03/12/22 06/01/22 History montelukast 10 mg tablet 10 mg PO DAILY 03/12/22 06/01/22 History pantoprazole 40 mg tablet,delayed 40 mg PO DAILY 03/12/22 06/01/22 History release prazosin 5 mg capsule 5 mg PO HS 03/12/22 06/01/22 History pregabalin 150 mg capsule 150 mg PO BID 03/12/22 06/01/22 History sertraline 100 mg tablet 100 mg PO BID 03/12/22 06/01/22 History tiotropium bromide 18 mcg capsule 1 cap inhalation DAILY PRN 03/12/22 06/01/22 History with inhalation device (Spiriva Shortness Of Breath Or Wheezing with HandiHaler) trazodone 150 mg tablet 150 mg PO HS 03/12/22 06/01/22 History cephalexin 500 mg capsule 500 mg PO BID 06/01/22 06/01/22 History Allergies Allergy/AdvReac Type Severity Reaction Status Date / Time ibuprofen Allergy Intermediate HIVES Verified 06/01/22 16:39 Past Med/Surg History Medical History Asthma BPH (benign prostatic hyperplasia) Bronchiolitis due to influenza virus Chronic bronchitis Closed fracture dislocation of ankle DDD (degenerative disc disease) Diverticulitis HTN (hypertension) Hypoxemia Intractable back pain MRSA (methicillin resistant Staphylococcus aureus) negative nasal swab on 06/24/15 and 10/05/18 Obesity Open wound of ankle with complication VIK on CPAP Noncompliant Prolonged QT interval DTl=794 EKG 05/25/19 PTSD (post-traumatic stress disorder) do not wake patient by touching, wake patient by saying name Surgical History History of back surgery back surgery x3 at [facility] History of partial colectomy S/P hernia repair Status post ORIF of fracture of ankle 05/26/[address] Farhan DIEZ with sedation. Family History Other Family history non-contributory Social History Smoking Status: Former smoker Tobacco Type: Smokeless Tobacco (Dip or Chew) Cigarettes Per Day: Uncertain.; Second Hand Exposure: No; Hx Alcohol Use: Yes Alcohol type: beer Hx Substance Use: No Preferred Language: Armenian Communication Ability: Effective Half Section Ironer Required: No Beliefs That Will Affect Care: None marital status: Current Living Situation: Spouse Current Living Situation Comment: with wifr and grandson Feels Safe at Home: Yes Assistive Devices: Wheelchair Physical Exam Vital Signs Vital Signs - 24 hr 06/01/22 14:18 06/01/22 14:18 06/01/22 15:10 Temperature 37.1 C Temperature Source Oral Pulse Rate 67 Pulse Rate [Apical] 71 Pulse Rhythm [Apical] Regular Respiratory Rate 18 18 Respiratory Effort / Characteristics Respiratory Depth Normal Blood Pressure 107/60 Blood Pressure [Left Arm] 113/68 Blood Pressure Mean 75 Blood Pressure Mean [Left Arm] 83 Blood Pressure Position Lying Blood Pressure Position [Left Arm] Lying Pulse Oximetry 93 80 L 96 Oxygen Delivery Method Nasal Cannula Room Air Nasal Cannula Oxygen Flow Rate 4 2 Fraction of Inspired Oxygen Sepsis Recent Fever Within 48 Hours No Sepsis New/Unexplained Change in Mental Status N/A Sepsis Action Taken by Nursing No Action Required Oxygen Flow Rate - Titration 4 Pulse Oximetry Post Tiitration 93 06/01/22 15:55 06/01/22 16:34 06/01/22 17:08 Temperature Temperature Source Pulse Rate 76 Pulse Rate [Apical] 70 77 Pulse Rhythm [Apical] Respiratory Rate 16 20 Respiratory Effort / Characteristics Non-Labored Spontaneous Respiratory Depth Normal Blood Pressure Blood Pressure [Left Arm] 113/61 Blood Pressure Mean Blood Pressure Mean [Left Arm] 78 Blood Pressure Position Blood Pressure Position [Left Arm] Lying Pulse Oximetry 91 Oxygen Delivery Method Nasal Cannula Nasal Cannula Oxygen Flow Rate 1 2 Fraction of Inspired Oxygen 92 Sepsis Recent Fever Within 48 Hours Sepsis New/Unexplained Change in Mental Status Sepsis Action Taken by Nursing Oxygen Flow Rate - Titration Pulse Oximetry Post Tiitration Physical Exam HENT: Exam performed. - Head: Normocephalic and atraumatic. - Right Ear: External ear normal. No mastoid erythema - Left Ear: External ear normal. No mastoid erythema CV: Normal rate, regular rhythm, normal heart sounds and intact distal pulses. There is no peripheral edema. Palpable radial pulses bue. PULM/CHEST: Diffuse expiratory wheezes bilaterally. ABD: The abdomen is soft. There is mild distension. There is tenderness to palpation of the left lower quadrant. There is no rebound, no guarding, SKIN: Skin is warm and dry. He is not diaphoretic. Course Course 1411: The patient was evaluated in room A3. A complete history and physical exam was performed Cardiac monitoring: An order was placed for continuous cardiac monitoring. The monitor shows a rate of 70 with sinus rhythm interpreted by me Patient was found to be hypoxic on room air and 80%. Patient states he does not usually wear oxygen. Patient was placed on nasal cannula which improved his oxygen saturations. Patient be given an hour-long DuoNeb treatment and Solu- Medrol. 1502: Patient's goal oxygen saturations were to be 88 to 92%. The discharge summary from March 23, 2022. 1620: Vital signs improved. Patient's wheezing is proved with DuoNeb. Labs show white blood cell count of 3.81 hemoglobin 9.4 VBG venous pH 7.35 venous PCO2 56. Potassium was 3 magnesium 1.2. Magnesium repletion was started the emergency department. Chest x-ray shows cardiomegaly but no fluid overload. CT of the abdomen pelvis showed some esophagitis. Patient will be admitted for COPD exacerbation, hypomagnesemia hypokalemia and to be evaluated by GI for his esophagitis[facility]40: [facility]. Administered Medications Discontinued Medications Albuterol (Albut/Ipratrop 3mg/0.5mg Neb 3 Ml Vial) 12 ml NEB ONE ONE; Protocol Stop: 06/01/22 14:19 Last Admin: 06/01/22 15:55 Dose: 12 ml Documented By: EVER Famotidine (Famotidine 20mg/5ml Iv Push) 20 mg IV NOW STA Stop: 06/01/22 17:06 Last Admin: 06/01/22 17:29 Dose: 20 mg Documented By: ENZO Magnesium Sulfate/Dextrose (Magnesium Sulfate / D5w) 1 gm in 100 mls @ 100 mls/hr IV Q1H MARIBETH Stop: 06/01/22 17:56 Last Infusion: 06/01/22 18:22 Dose: 0 mls/hr Documented By: Admin: 06/01/22 17:04 Dose: 100 mls/hr Documented By: CHATA Ioversol (Optiray 350 100ml) 85 ml IV ONCE ONE Stop: 06/01/22 15:47 Last Admin: 06/01/22 15:47 Dose: 85 ml Documented By: SYLWIA Methylprednisolone (Methylprednisolone 125 Mg/2 Ml Vial) 125 mg IV NOW STA Stop: 06/01/22 14:19 Last Admin: 06/01/22 15:21 Dose: 125 mg Documented By: CHATA Medical Decision Making Medical Records Attestation: I reviewed the patient's medical records. External medical records reviewed. Patient was admitted to this facility from March 12 to March 23, 2022. Patient was admitted for COPD exacerbation and influenza. In the emergency department the patient had to be placed on BiPAP. While admitted to the hospital the patient was evaluated by pulmonology and the patient was recommended to be discharged with a prednisone taper, azithromycin, and Tamiflu. The patient was to have outpatient PFTs and keep oxygen saturation between 88 to 92%. Laboratory Data Attestation: I reviewed the patient's lab results. 06/01/22 14:27 06/01/22 14:27 Lab Results 06/01/22 06/01/22 06/01/22 Range/Units 14:27 14:27 14:27 WBC 3.81 L (4.8-10.8) K/ul RBC 3.22 L (4.70-6.10) M/uL Hgb 9.4 L (14.0-18.0) g/dl Hct 30.6 L (42.0-52.0) % MCV 95.0 (80.0-100.0) fL MCH 29.2 (25.0-34.0) pg MCHC 30.7 L (32.0-36.0) g/dL RDW Std Deviation 57.5 H (36.4-46.3) fL RDW Coeff of Hector 16.6 H (11.5-14.5) % Plt Count 208 (130-400) K/uL MPV 11.0 (9.4-12.4) fL Immature Gran % (Auto) 1.3 % Neut % (Auto) 82.5 % Lymph % (Auto) 9.4 % Martin % (Auto) 5.8 % Eos % (Auto) 0.5 % Baso % (Auto) 0.5 % Neut # (Auto) 3.14 (1.40-6.50) K/uL Lymph # (Auto) 0.36 L (1.2-3.4) K/uL Martin # (Auto) 0.22 (0.11-0.59) K/uL Eos # (Auto) 0.02 (0-0.50) K/uL Baso # (Auto) 0.02 (0-0.2) K/uL Immature Gran # (Auto) 0.05 (0.01-0.20) K/uL PT 14.4 H (9.0-12.0) Seconds INR 1.4 H (0.9-1.1) APTT 41.1 H (21.0-31.0) Seconds PTT Ratio 1.5 VBG pH (7.36-7.41) VBG pCO2 (38-50) mmHg VBG pO2 mmHg VBG HCO3 mmol/L VBG O2 Saturation % VBG Base Excess mEq/L Sodium 139 (136-145) mmol/L Potassium 3.0 L (3.5-5.1) mmol/L Chloride 100 (98-107) mmol/L Carbon Dioxide 32 (21-32) mmol/L Anion Gap 7 (3-11) BUN 17 (6-23) mg/dl Creatinine 1.15 (0.6-1.4) mg/dl Est Cr Clr Drug Dosing 58.4 ml/min Est GFR ( Amer) 72.3 ml/min Est GFR (Non-Af Amer) 62.3 ml/min BUN/Creatinine Ratio 14.8 (10-20) Glucose 86 (70-99(Fasting)) mg/dl Calcium 8.3 L (8.6-10.3) mg/dl Magnesium 1.2 L (1.7-2.4) mg/dl Total Bilirubin 1.0 (0.2-1.0) mg/dl Direct Bilirubin 0.3 H (0-0.2) mg/dl AST 8 L (13-39) U/L ALT < 3 L (7-52) U/L Alkaline Phosphatase 65 (34-104) U/L Troponin I High Sens (0-20) pg/ml C-Reactive Protein 4.85 H (0-0.5) mg/dl B-Natriuretic Peptide (0-100) pg/ml Total Protein 6.4 (6.0-8.3) gm/dl Albumin 3.5 (3.4-5.0) gm/dl Lipase (11-82) U/L SARS-CoV-2 (PCR) (Negative) Influenza Type A (PCR) (Neg) Influenza Type B (PCR) (Neg) RSV (RT-PCR) (Neg) 06/01/22 06/01/22 06/01/22 Range/Units 14:27 14:27 14:27 WBC (4.8-10.8) K/ul RBC (4.70-6.10) M/uL Hgb (14.0-18.0) g/dl Hct (42.0-52.0) % MCV (80.0-100.0) fL MCH (25.0-34.0) pg MCHC (32.0-36.0) g/dL RDW Std Deviation (36.4-46.3) fL RDW Coeff of Hector (11.5-14.5) % Plt Count (130-400) K/uL MPV (9.4-12.4) fL Immature Gran % (Auto) % Neut % (Auto) % Lymph % (Auto) % Martin % (Auto) % Eos % (Auto) % Baso % (Auto) % Neut # (Auto) (1.40-6.50) K/uL Lymph # (Auto) (1.2-3.4) K/uL Martin # (Auto) (0.11-0.59) K/uL Eos # (Auto) (0-0.50) K/uL Baso # (Auto) (0-0.2) K/uL Immature Gran # (Auto) (0.01-0.20) K/uL PT (9.0-12.0) Seconds INR (0.9-1.1) APTT (21.0-31.0) Seconds PTT Ratio VBG pH 7.35 L (7.36-7.41) VBG pCO2 56 H (38-50) mmHg VBG pO2 34 mmHg VBG HCO3 31 mmol/L VBG O2 Saturation < 60.0 % VBG Base Excess 3.8 mEq/L Sodium (136-145) mmol/L Potassium (3.5-5.1) mmol/L Chloride (98-107) mmol/L Carbon Dioxide (21-32) mmol/L Anion Gap (3-11) BUN (6-23) mg/dl Creatinine (0.6-1.4) mg/dl Est Cr Clr Drug Dosing ml/min Est GFR ( Amer) ml/min Est GFR (Non-Af Amer) ml/min BUN/Creatinine Ratio (10-20) Glucose (70-99(Fasting)) mg/dl Calcium (8.6-10.3) mg/dl Magnesium (1.7-2.4) mg/dl Total Bilirubin (0.2-1.0) mg/dl Direct Bilirubin (0-0.2) mg/dl AST (13-39) U/L ALT (7-52) U/L Alkaline Phosphatase (34-104) U/L Troponin I High Sens 6.6 (0-20) pg/ml C-Reactive Protein (0-0.5) mg/dl B-Natriuretic Peptide 195 H (0-100) pg/ml Total Protein (6.0-8.3) gm/dl Albumin (3.4-5.0) gm/dl Lipase 9 L (11-82) U/L SARS-CoV-2 (PCR) (Negative) Influenza Type A (PCR) (Neg) Influenza Type B (PCR) (Neg) RSV (RT-PCR) (Neg) 06/01/22 06/01/22 Range/Units 15:23 17:41 WBC (4.8-10.8) K/ul RBC (4.70-6.10) M/uL Hgb (14.0-18.0) g/dl Hct (42.0-52.0) % MCV (80.0-100.0) fL MCH (25.0-34.0) pg MCHC (32.0-36.0) g/dL RDW Std Deviation (36.4-46.3) fL RDW Coeff of Hector (11.5-14.5) % Plt Count (130-400) K/uL MPV (9.4-12.4) fL Immature Gran % (Auto) % Neut % (Auto) % Lymph % (Auto) % Martin % (Auto) % Eos % (Auto) % Baso % (Auto) % Neut # (Auto) (1.40-6.50) K/uL Lymph # (Auto) (1.2-3.4) K/uL Martin # (Auto) (0.11-0.59) K/uL Eos # (Auto) (0-0.50) K/uL Baso # (Auto) (0-0.2) K/uL Immature Gran # (Auto) (0.01-0.20) K/uL PT (9.0-12.0) Seconds INR (0.9-1.1) APTT (21.0-31.0) Seconds PTT Ratio VBG pH (7.36-7.41) VBG pCO2 (38-50) mmHg VBG pO2 mmHg VBG HCO3 mmol/L VBG O2 Saturation % VBG Base Excess mEq/L Sodium (136-145) mmol/L Potassium (3.5-5.1) mmol/L Chloride (98-107) mmol/L Carbon Dioxide (21-32) mmol/L Anion Gap (3-11) BUN (6-23) mg/dl Creatinine (0.6-1.4) mg/dl Est Cr Clr Drug Dosing ml/min Est GFR ( Amer) ml/min Est GFR (Non-Af Amer) ml/min BUN/Creatinine Ratio (10-20) Glucose (70-99(Fasting)) mg/dl Calcium (8.6-10.3) mg/dl Magnesium (1.7-2.4) mg/dl Total Bilirubin (0.2-1.0) mg/dl Direct Bilirubin (0-0.2) mg/dl AST (13-39) U/L ALT (7-52) U/L Alkaline Phosphatase (34-104) U/L Troponin I High Sens (0-20) pg/ml C-Reactive Protein Cancelled (0-0.5) mg/dl B-Natriuretic Peptide (0-100) pg/ml Total Protein (6.0-8.3) gm/dl Albumin (3.4-5.0) gm/dl Lipase (11-82) U/L SARS-CoV-2 (PCR) POSITIVE A* (Negative) Influenza Type A (PCR) Negative (Neg) Influenza Type B (PCR) Negative (Neg) RSV (RT-PCR) Negative (Neg) Imaging Data Attestation: I personally reviewed and interpreted this imaging study as follows: My Impression: Chest x-ray: Cardiomegaly. Radiologist's Impression: Abdomen/Pelvis CT 06/01/22 14:[address] WITH IV CONTRAST CT DOSE: 1398.50 mGy.cm HISTORY: Acute left lower quadrant abdominal pain llq pain TECHNIQUE: Multiaxial CT images of the abdomen and pelvis were performed following the IV administration of 85 cc of Optiray, A dose lowering technique was utilized adhering to the principles of ALARA. COMPARISON STUDY: CTA runoff 06/27/2019 FINDINGS: Moderate cardiomegaly with moderate coronary artery calcifications. Trace pericardial effusion. Mild bibasilar atelectasis. No pneumatosis or pneumoperitoneum. Spleen is enlarged measuring up to 15.9 cm in length. Mild to moderate pancreatic atrophy. Unremarkable left adrenal gland. 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 Unremarkable gallbladder. Liver is within normal limits. Patent portal vein. Mild cortical thinning of the kidneys with nonspecific bilateral perinephric stranding. 4 mm nonobstructing calculus of the interpolar right kidney. No ureteral calculi or hydronephrosis. There is mild circumferential urinary bladder wall thickening. Prostate is upper limits of normal in size. Atherosclerosis of the aorta without aneurysm. No lymphadenopathy. Mild wall thickening of the fluid-filled distal esophagus with trace adjacent inflammatory stranding. Postoperative changes suggestive of partial sigmoid colon resection with colocolonic anastomosis. Soft tissue thickening within the lower lumbar prevertebral tissues is likely on a postoperative basis with adjacent surgical clips. Normal appendix. Unremarkable soft tissues. No acute fracture. Degenerative changes of the spine, pelvis and hips. Discectomy with posterior interbody adelso and screw fusion at L5-S1. The hardware appears intact. IMPRESSION: 1. Fluid-filled distal esophagus with mild wall thickening and adjacent inflammatory stranding. Findings are suspicious for esophagitis. 2. No bowel obstruction or bowel wall thickening. 3. Partial sigmoid colon resection with colocolonic anastomosis. 4. Moderate splenomegaly. 5. Right nephrolithiasis. ACT 112: Negative or not required by law. The above report was generated using voice recognition software. It may contain grammatical, syntax or spelling errors. Electronically signed by: Natanael Valladares M.D. 06/01/2022 4:06 PM Chest X-Ray 06/01/22 14:20 XR chest 1V portable HISTORY: 76 years-old Male sob acute shortness of breath with confusion COMPARISON: Chest radiograph 03/16/2022 TECHNIQUE: AP view of the chest FINDINGS: Cardiac silhouette is enlarged. Unchanged right hemidiaphragmatic elevation. No pneumothorax, pleural effusion, airspace consolidation or pulmonary edema. Bones appear grossly intact. IMPRESSION: Cardiomegaly without acute process. ACT 112: Negative or not required by law. The above report was generated using voice recognition software. It may contain grammatical, syntax or spelling errors. Electronically signed by: Natanael Valladares M.D. 06/01/2022 2:51 PM ECG Data Attestation: I personally reviewed and interpreted this ECG as follows: Indication: + SOB/dyspnea Rate (beats per minute): 70 Rhythm: + normal sinus ECG Intervals/blocks: + Normal QRS, + Normal PA and + Normal QT-c ECG ST segments: + Normal ST segments MDM Narrative 1411: The patient was evaluated in room A3. A complete history and physical exam was performed Cardiac monitoring: An order was placed for continuous cardiac monitoring. The monitor shows a rate of 70 with sinus rhythm interpreted by me Patient was found to be hypoxic on room air and 80%. Patient states he does not usually wear oxygen. Patient was placed on nasal cannula which improved his oxygen saturations. Patient be given an hour-long DuoNeb treatment and Solu- Medrol. 1502: Patient's goal oxygen saturations were to be 88 to 92%. The discharge summary from March 23, 2022. 1620: Vital signs improved. Patient's wheezing is proved with DuoNeb. Labs show white blood cell count of 3.81 hemoglobin 9.4 VBG venous pH 7.35 venous PCO2 56. Potassium was 3 magnesium 1.2. Magnesium repletion was started the e mergency department. Chest x-ray shows cardiomegaly but no fluid overload. CT of the abdomen pelvis showed some esophagitis. Patient will be admitted for COPD exacerbation, hypomagnesemia hypokalemia and to be evaluated by GI for his esophagitis. [facility] hospitalist team was made aware of patient. 1740: [facility]. Impression & Plan COPD exacerbation, Hypomagnesemia, Hypokalemia Discharge Plan Visit Data Chief Complaint: Shortness of Breath/Dyspnea Stated Complaint: SOB ED Provider: Cory Kaur Discharge Problem: COPD exacerbation, Hypomagnesemia, Hypokalemia Patient Disposition: Admitted As Inpatient Forms Stand Alone Forms: My [facility] Prescriptions Prescriptions: No Action cyclobenzaprine 10 mg Tablet 10 mg PO BID buspirone 5 mg Tablet 7.5 mg PO TID hydroxyurea 500 mg Capsule 1,000 mg PO DIRECTED Rx Instructions: take 1,000 mg bid on week days. mon-fri atorvastatin 10 mg Tablet 10 mg PO DAILY sertraline 100 mg Tablet 100 mg PO BID prazosin 5 mg Capsule 5 mg PO HS pantoprazole 40 mg Tablet,Delayed Release (Dr/Ec) 40 mg PO DAILY trazodone 150 mg Tablet 150 mg PO HS montelukast 10 mg Tablet 10 mg PO DAILY lisinopril 5 mg Tablet 5 mg PO DAILY furosemide 20 mg Tablet 20 mg PO DAILY carbidopa-levodopa 25-100 mg Tablet 2 tab PO AMHS carbidopa-levodopa 25-100 mg Tablet 1 tab PO .DAILY @ NOON finasteride 5 mg Tablet 5 mg PO DAILY bupropion HCl 300 mg Tablet Extended Release 24 Hr 300 mg PO QAM memantine 5 mg Tablet 5 mg PO DAILY metoprolol tartrate 25 mg Tablet 12.5 mg PO BID Eliquis 5 mg Tablet 5 mg PO BID pregabalin 150 mg Capsule 150 mg PO BID albuterol sulfate 90 mcg/actuation Hfa Aerosol Inhaler 2 puff INHALATION Q4 PRN (Reason: Shortness Of Breath Or Wheezing) Spiriva with HandiHaler 18 mcg Capsule, W/Inhalation Device 1 cap INHALATION DAILY PRN (Reason: Shortness Of Breath Or Wheezing) Rx Instructions: puncture 1 cap using device; one dose = 2 inhalations budesonide-formoterol 160-4.5 mcg/actuation Hfa Aerosol Inhaler 2 puff INHALATION BID PRN (Reason: Shortness Of Breath Or Wheezing) cephalexin [Keflex] 500 mg Capsule 500 mg PO BID Referrals Referrals: [facility] [Primary Care Provider] -
[2022-06-01 15:09] LABS: Basophils # (auto) 0.02 K/uL (0-0.2); Basophils % (auto) 0.5 %; Eosinophils # (auto) 0.02 K/uL (0-0.50); Eosinophils % (auto) 0.5 %; Hematocrit (blood only) 30.6 % (42.0-52.0); Hemoglobin 9.4 g/dl (14.0-18.0); Immature Granulocytes # (auto) 0.05 K/uL (0.01-0.20); Immature Granulocytes % (auto) 1.3 %; Lymphocytes # (auto) 0.36 K/uL (1.2-3.4); Lymphocytes % (auto) 9.4 %; Mean Corpuscular Hemoglobin 29.2 pg (25.0-34.0); Mean Corpuscular Hgb Conc 30.7 g/dL (32.0-36.0); Monocytes # (auto) 0.22 K/uL (0.11-0.59); Monocytes % (auto) 5.8 %; Neutrophils # (auto) 3.14 K/uL (1.40-6.50); Neutrophils % (auto) 82.5 %; Platelet Count 208 K/uL (130-400); RDW Coefficient of Variation 16.6 % (11.5-14.5); RDW Standard Deviation 57.5 fL (36.4-46.3); Red Blood Count 3.22 M/uL (4.70-6.10); White Blood Count 3.81 K/ul (4.8-10.8)
[2022-06-01 15:16] LABS: Anion Gap 7 (3-11); BUN Creatinine Ratio 14.8 (10-20); Blood Urea Nitrogen 17 mg/dl (6-23); Calcium 8.3 mg/dl (8.6-10.3); Carbon Dioxide 32 mmol/L (21-32); Chloride 100 mmol/L (98-107); Creatinine Clr Calc Pharmacy 58.4 ml/min; Est GFR (African American) 72.3 ml/min; Est GFR (Non-African American) 62.3 ml/min; Glucose 86 mg/dl (70-99(Fasting)); Sodium 139 mmol/L (136-145)
[2022-06-01 15:20] LABS: Alanine Aminotransferase < 3 U/L (7-52); Albumin Level 3.5 gm/dl (3.4-5.0); Alkaline Phosphatase 65 U/L (34-104); Aspartate Aminotransferase 8 U/L (13-39); Bilirubin Direct 0.3 mg/dl (0-0.2); Magnesium 1.2 mg/dl (1.7-2.4); Total Protein 6.4 gm/dl (6.0-8.3)
[2022-06-01 15:21] LABS: Troponin I High Sensitivity 6.6 pg/ml (0-20)
[2022-06-01 15:35] LABS: INR 1.4 (0.9-1.1); Partial Thromboplastin Ratio 1.5; Partial Thromboplastin Time 41.1 Seconds (21.0-31.0); Prothrombin Time 14.4 Seconds (9.0-12.0)
[2022-06-01] MEDS ORDERED: OPTIRAY 350 100ml IV ONE (15:46)
--- NOTE | 2022-06-01 16:08 | CT Scan Report ---
ABDOMEN AND PELVIS CT WITH IV CONTRAST CT DOSE: 1398.50 mGy.cm HISTORY: Acute left lower quadrant abdominal pain llq pain TECHNIQUE: Multiaxial CT images of the abdomen and pelvis were performed following the IV administrat ion of 85 cc of Optiray, A dose lowering technique was utilized adhering to the principles of ALARA. COMPARISON STUDY: CTA runoff 06/27/2019 FINDINGS: Moderate cardiomegaly with moderate coronary artery calcifications. Trace pericardial effus ion. Mild bibasilar atelectasis. No pneumatosis or pneumoperitoneum. Spleen is enlarged measuring up to 15.9 cm in length. Mild to moderate pancreatic atrophy. Unremarkable left adrenal gland. 1.1 cm ri ght adrenal gland myolipoma. Unremarkable gallbladder. Liver is within normal limits. Patent portal v ein. Mild cortical thinning of the kidneys with nonspecific bilateral perinephric stranding. 4 mm nonobstr ucting calculus of the interpolar right kidney. No ureteral calculi or hydronephrosis. There is mild circumferential urinary bladder wall thickening. Prostate is upper limits of normal in size. Atherosc lerosis of the aorta without aneurysm. No lymphadenopathy. Mild wall thickening of the fluid-filled distal esophagus with trace adjacent inflammatory stranding. Postoperative changes suggestive of partial sigmoid colon resection with colocolonic anastomosis. So ft tissue thickening within the lower lumbar prevertebral tissues is likely on a postoperative basis with adjacent surgical clips. Normal appendix. Unremarkable soft tissues. No acute fracture. Degenera tive changes of the spine, pelvis and hips. Discectomy with posterior interbody adelso and screw fusion at L5-S1. The hardware appears intact. IMPRESSION: 1. Fluid-filled distal esophagus with mild wall thickening and adjacent inflammatory stranding. Findi ngs are suspicious for esophagitis. 2. No bowel obstruction or bowel wall thickening. 3. Partial sigmoid colon resection with colocolonic anastomosis. 4. Moderate splenomegaly. 5. Right nephrolithiasis. ACT 112: Negative or not required by law. The above report was generated using voice recognition software. It may contain grammatical, syntax o r spelling errors. Electronically signed by: Natanael Valladares M.D. 06/01/2022 4:06 PM
[2022-06-01 16:33] LABS: Influenza A virus by PCR Negative (Neg); Influenza B virus by PCR Negative (Neg); RSV by PCR Negative (Neg)
--- NOTE | 2022-06-01 16:35 | Electrocardiogram Report ---
Test Reason : Blood Pressure : / mmHG Vent. Rate : 070 BPM Atrial Rate : 070 BPM P-R Int : 184 ms QRS Dur : 082 ms QT Int : 446 ms P-R-T Axes : 028 009 031 degrees QTc Int : 481 ms Poor data quality, interpretation may be adversely affected Normal sinus rhythm with sinus arrhythmia Minor Nonspecific ST abnormality Anterior leads Abnormal ECG When compared with ECG of 12-MAR-2022 12:11, No significant change was found Confirmed by Chas Doshi ([id number]) on 06/01/2022 4:35:09 PM Referred By: REFERRED SELF Confirmed By:Chas Doshi
[2022-06-01] MEDS ORDERED: FAMOTIDINE 20 MG in SYRINGE 3 ML IV STA (17:02)
[2022-06-01] MEDS: MAGNESIUM SULFATE / D5W 1 GM/100 ML BAG IV SCH ×2 (17:04→19:29)
[2022-06-01] MEDS ORDERED: PANTOprazole 40 MG in SYRINGE 0 ML IV STA (17:05)
[2022-06-01] MEDS ORDERED: FAMOTIDINE 20MG/5ML IV PUSH IV STA (17:05)
[2022-06-01 17:26] LABS: SARS CoV2 RNA(COVID-19) Ceph POSITIVE (Negative)
--- NOTE | 2022-06-01 17:26 | History & Physical Report ---
Date of Service June 01, 2022 Assessment & Plan (1) Acute respiratory failure with hypoxia: Plan: No significant wheezing on exam to suggest COPD exacerbation. Suspect more due to COVID-19. Aim O2 sats > 90% (2) COVID-19: Plan: Unclear duration of symptoms but given acute lymphopenia suspect he is in acute phases Vaccinated and boosted but never had infection previously Solu-Medrol given in ER, continue IV steroids with dexamethasone 6mg IV Start remdesivir (3) Esophagitis: Plan: Main reason he came to ER ?secondary to Keflex Gastritis/esophagitis Switch pantoprazole PO to IV BID (4) UTI (urinary tract infection): Plan: Diagnosed as outpatient. Repeat UA and culture. Will attempt to obtain MD urine culture for which he was treated with Keflex. Switch to ceftriaxone while here as Keflex may be exacerbating his esophagitis. (5) Hypomagnesemia: Plan: Magnesium level 1.2. Mg sulfate 2g IV given in ER. Additional 1g IV. Repeat level in AM (6) Hypokalemia: Plan: K 3.0 on admission. Suspect will improve with magnesium replacement. KCl 20 meq PO. Repeat level in AM. (7) Paroxysmal atrial fibrillation: Plan: Currently in NSR Anticoagulation with Eliquis (8) VIK on CPAP: Plan: BiPAP HS as able to tolerate (9) PTSD (post-traumatic stress disorder): Plan: Do not wake patient by touching, only saying his name Continue sertraline, prazosin, bupropion Plan VTE Prophylaxis - Eliquis Diet - regular Disposition - admit to med/surg Admission and Anticipated Discharge Date Admission Date: June 01, 2022 History of Present Illness Chief Complaint: Epigastric pain Primary Care Provider: [facility] Addison De Los Santos is a 76 year old male with COPD who presents to the ER with epigastric pain for the last week. No dysphagia, odynophagia, nausea, vomiting, hematemesis or diarrhea. Associated reduced appetite and not eating or drinking as much as usual. He reports taste has been reduced ever since he was diagnosed with influenza in February. Epigastric pain started after Keflex was started on Monday for a urinary tract infection. UTI was diagnosed on the basis of positive urine culture at the MD in setting of hallucinations; no specific urinary symptoms. Associated chills this week. In the ER SARS-COV-2 PCR positive. He denies any acute nasal congestion, sinus pain, shortness of breath, cough, chest pain, abdominal pain, diarrhea. He does note increased difficulty in coughing up mucus. Allergies Allergy/AdvReac Type Severity Reaction Status Date / Time ibuprofen Allergy Intermediate HIVES Verified 06/01/22 16:39 Home Medications Medication Instructions Recorded Confirmed Type albuterol sulfate 90 mcg/actuation 2 puff inhalation Q4 PRN Shortness 03/12/22 06/01/22 History aerosol inhaler Of Breath Or Wheezing apixaban 5 mg tablet (Eliquis) 5 mg PO BID 03/12/22 06/01/22 History atorvastatin 10 mg tablet 10 mg PO DAILY 03/12/22 06/01/22 History budesonide-formoterol HFA 160 2 puff inhalation BID PRN 03/12/22 06/01/22 History mcg-4.5 mcg/actuation aerosol Shortness Of Breath Or Wheezing inhaler bupropion HCl 300 mg 24 hr tablet, 300 mg PO QAM 03/12/22 06/01/22 History extended release buspirone 5 mg tablet 7.5 mg PO TID 03/12/22 06/01/22 History carbidopa 25 mg-levodopa 100 mg 1 tab PO .DAILY @ NOON 03/12/22 06/01/22 History tablet carbidopa 25 mg-levodopa 100 mg 2 tab PO AMHS 03/12/22 06/01/22 History tablet cyclobenzaprine 10 mg tablet 10 mg PO BID 03/12/22 06/01/22 History finasteride 5 mg tablet 5 mg PO DAILY 03/12/22 06/01/22 History furosemide 20 mg tablet 20 mg PO DAILY 03/12/22 06/01/22 History hydroxyurea 500 mg capsule 1,000 mg PO DIRECTED 03/12/22 06/01/22 History lisinopril 5 mg tablet 5 mg PO DAILY 03/12/22 06/01/22 History memantine 5 mg tablet 5 mg PO DAILY 03/12/22 06/01/22 History metoprolol tartrate 25 mg tablet 12.5 mg PO BID 03/12/22 06/01/22 History montelukast 10 mg tablet 10 mg PO DAILY 03/12/22 06/01/22 History pantoprazole 40 mg tablet,delayed 40 mg PO DAILY 03/12/22 06/01/22 History release prazosin 5 mg capsule 5 mg PO HS 03/12/22 06/01/22 History pregabalin 150 mg capsule 150 mg PO BID 03/12/22 06/01/22 History sertraline 100 mg tablet 100 mg PO BID 03/12/22 06/01/22 History tiotropium bromide 18 mcg capsule 1 cap inhalation DAILY PRN 03/12/22 06/01/22 History with inhalation device (Spiriva Shortness Of Breath Or Wheezing with HandiHaler) trazodone 150 mg tablet 150 mg PO HS 03/12/22 06/01/22 History cephalexin 500 mg capsule 500 mg PO BID 06/01/22 06/01/22 History Past Med/Surg History Medical History Asthma BPH (benign prostatic hyperplasia) Bronchiolitis due to influenza virus Chronic bronchitis Closed fracture dislocation of ankle DDD (degenerative disc disease) Diverticulitis HTN (hypertension) Hypoxemia Intractable back pain MRSA (methicillin resistant Staphylococcus aureus) negative nasal swab on 06/24/15 and 10/05/18 Obesity Open wound of ankle with complication VIK on CPAP Noncompliant Prolonged QT interval [id number]=526 EKG 05/25/19 PTSD (post-traumatic stress disorder) do not wake patient by touching, wake patient by saying name Surgical History History of back surgery back surgery x3 at [facility] History of partial colectomy S/P hernia repair Status post ORIF of fracture of ankle 05/26/[address] [facility] with sedation. Family History Other Family history non-contributory Social History Smoking Status: Former smoker Tobacco Type: Smokeless Tobacco (Dip or Chew) Cigarettes Per Day: Uncertain.; Second Hand Exposure: No; Do You Dip or Chew Tobacco: No; Tobacco Cessation Education Requested by Patient: No Hx Alcohol Use: Yes Alcohol type: beer Hx Substance Use: No Preferred Language: Croatian Communication Ability: Effective Communication Ability Comment: Pt is currently confused [employer] Supervisor Required: No Beliefs That Will Affect Care: None marital status: Current Living Situation: Spouse Current Living Situation Comment: with wifr and grandson Other Information That Helps Us Care for You: No Feels Safe at Home: Yes Safety Concerns: Feels Safe At This Time Assistive Devices: Denture - Upper, Scooter/Electric Scooter and Wheelchair Assistive Devices Comment: bilateral lower ex prosthetics, uses a mechanical lift at home Review of Systems Review of Systems: All systems reviewed & are unremarkable except as noted in HPI & below Physical Exam Constitutional: WD/WN, vitals as above Eyes: PERRL, conjunctivae normal, anicteric sclerae ENMT: external ear and nose normal, oropharynx normal Neck: trachea midline, no thyromegaly Respiratory: normal respiratory effort, lungs clear to auscultation Cardiovascular: RRR, no murmur, no edema Gastrointestinal (Abdomen): Inspection/Auscultation: normal bowel sounds; abdomen not distended Percussion/Palpation: + abdomen tender (mild epigastric) and abdomen soft; no guarding and abdomen not rigid Musculoskeletal: no cyanosis or clubbing, extremities motor strength 5/5 Skin: no rashes, warm and dry Neurologic: moves all extremities and awake; not confused Psychiatric: A+Ox3, euthymic affect Results & Data Results & Data Vital Signs (Past 12 Hours) Vital Signs Temp Pulse Pulse Resp BP BP Pulse Ox 06/01/22 17:08 77 20 113/61 91 06/01/22 16:34 76 06/01/22 15:55 70 16 06/01/22 15:10 71 18 113/68 96 06/01/22 14:18 80 L 06/01/22 14:18 37.1 C 67 18 107/60 93 O2 Del Method O2 Flow Rate FiO2 06/01/22 17:08 Nasal Cannula 2 06/01/22 16:34 06/01/22 15:55 Nasal Cannula 1 92 06/01/22 15:10 Nasal Cannula 2 06/01/22 14:18 Room Air 06/01/22 14:18 Nasal Cannula 4 Laboratory Results Abnormal lab results 06/01/22 06/01/22 06/01/22 Range/Units 14:27 14:27 14:27 WBC 3.81 L (4.8-10.8) K/ul RBC 3.22 L (4.70-6.10) M/uL Hgb 9.4 L (14.0-18.0) g/dl Hct 30.6 L (42.0-52.0) % MCHC 30.7 L (32.0-36.0) g/dL RDW Std Deviation 57.5 H (36.4-46.3) fL RDW Coeff of Hector 16.6 H (11.5-14.5) % Lymph # (Auto) 0.36 L (1.2-3.4) K/uL PT 14.4 H (9.0-12.0) Seconds INR 1.4 H (0.9-1.1) APTT 41.1 H (21.0-31.0) Seconds VBG pH (7.36-7.41) VBG pCO2 (38-50) mmHg Potassium 3.0 L (3.5-5.1) mmol/L Calcium 8.3 L (8.6-10.3) mg/dl Magnesium 1.2 L (1.7-2.4) mg/dl Direct Bilirubin 0.3 H (0-0.2) mg/dl AST 8 L (13-39) U/L ALT < 3 L (7-52) U/L B-Natriuretic Peptide (0-100) pg/ml Lipase (11-82) U/L 06/01/22 06/01/22 06/01/22 Range/Units 14:27 14:27 14:27 WBC (4.8-10.8) K/ul RBC (4.70-6.10) M/uL Hgb (14.0-18.0) g/dl Hct (42.0-52.0) % MCHC (32.0-36.0) g/dL RDW Std Deviation (36.4-46.3) fL RDW Coeff of Hector (11.5-14.5) % Lymph # (Auto) (1.2-3.4) K/uL PT (9.0-12.0) Seconds INR (0.9-1.1) APTT (21.0-31.0) Seconds VBG pH 7.35 L (7.36-7.41) VBG pCO2 56 H (38-50) mmHg Potassium (3.5-5.1) mmol/L Calcium (8.6-10.3) mg/dl Magnesium (1.7-2.4) mg/dl Direct Bilirubin (0-0.2) mg/dl AST (13-39) U/L ALT (7-52) U/L B-Natriuretic Peptide 195 H (0-100) pg/ml Lipase 9 L (11-82) U/L Diagnostic Findings XR chest 1V portable HISTORY: 76 years-old Male sob acute shortness of breath with confusion COMPARISON: Chest radiograph 03/16/2022 TECHNIQUE: AP view of the chest FINDINGS: Cardiac silhouette is enlarged. Unchanged right hemidiaphragmatic elevation. No pneumothorax, pleural effusion, airspace consolidation or pulmonary edema. Bones appear grossly intact. IMPRESSION: Cardiomegaly without acute process. ABDOMEN AND PELVIS CT WITH IV CONTRAST CT DOSE: 1398.50 mGy.cm HISTORY: Acute left lower quadrant abdominal pain llq pain TECHNIQUE: Multiaxial CT images of the abdomen and pelvis were performed following the IV administration of 85 cc of Optiray, A dose lowering technique was utilized adhering to the principles of ALARA. COMPARISON STUDY: CTA runoff 06/27/2019 FINDINGS: Moderate cardiomegaly with moderate coronary artery calcifications. Trace pericardial effusion. Mild bibasilar atelectasis. No pneumatosis or pneumoperitoneum. Spleen is enlarged measuring up to 15.9 cm in length. Mild to moderate pancreatic atrophy. Unremarkable left adrenal gland. 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 Unremarkable gallbladder. Liver is within normal limits. Patent portal vein. Mild cortical thinning of the kidneys with nonspecific bilateral perinephric stranding. 4 mm nonobstructing calculus of the interpolar right kidney. No ureteral calculi or hydronephrosis. There is mild circumferential urinary bladder wall thickening. Prostate is upper limits of normal in size. Atherosclerosis of the aorta without aneurysm. No lymphadenopathy. Mild wall thickening of the fluid-filled distal esophagus with trace adjacent inflammatory stranding. Postoperative changes suggestive of partial sigmoid colon resection with colocolonic anastomosis. Soft tissue thickening within the lower lumbar prevertebral tissues is likely on a postoperative basis with adjacent surgical clips. Normal appendix. Unremarkable soft tissues. No acute fracture. Degenerative changes of the spine, pelvis and hips. Discectomy with posterior interbody adelso and screw fusion at L5-S1. The hardware appears intact. IMPRESSION: 1. Fluid-filled distal esophagus with mild wall thickening and adjacent inflammatory stranding. Findings are suspicious for esophagitis. 2. No bowel obstruction or bowel wall thickening. 3. Partial sigmoid colon resection with colocolonic anastomosis. 4. Moderate splenomegaly. 5. Right nephrolithiasis. Medications Administered ER Medications Given: Duoneb 12 ml Solu-medrol 125mg IV Magnesium sulfate 1g IV ECG Rate (beats per minute): 70 Rhythm: sinus with SA Findings: + nonspecific-ST abn Comparison ECG Date: from (Mar 12, 2022) Change: no significant change Code Status & VTE Plan Code Status DNR/DNI VTE Prophylaxis Plan VTE Prophylaxis will be ordered: Yes PG Care Time/CCT Total # of Minutes Spent Total Time Spent with Patient: Total time spent is greater than 50% in coordination of care (as documented) at patient's floor/unit and/or counseling patient: Coding Level of Care Code 19375 INT INP/OBS CARE 3/75MIN Diagnoses Acute respiratory failure with hypoxia J96.01 COVID-19 U07.1 Esophagitis K20.90 UTI (urinary tract infection) N39.0 Hypomagnesemia E83.42 Hypokalemia E87.6 Paroxysmal atrial fibrillation I48.0 VIK on CPAP G47.33; Z99.89 PTSD (post-traumatic stress disorder) F43.10
[2022-06-01] MEDS ORDERED: POTASSIUM CHLORIDE CRTAB 20 MEQ TABCR PO STA (17:44)
[2022-06-01 18:17] LABS: C Reactive Protein 4.85 mg/dl (0-0.5)
[2022-06-01] MEDS ORDERED: ACETAMINOPHEN 325 MG TAB PO PRN (20:41)
[2022-06-01] MEDS ORDERED: ALBUTEROL HFA 8 GM INHALER INH PRN (20:41)
[2022-06-01] MEDS: PANTOprazole 40 MG in SYRINGE 0 ML IV SCH (22:18)
[2022-06-01] MEDS: PREGABALIN 150 MG CAP PO SCH (22:22)
[2022-06-01] MEDS: METOPROLOL TARTRATE 25 MG TAB PO SCH (22:22)
[2022-06-01] MEDS: traZODone HCL 50 MG TAB PO SCH (22:23)
[2022-06-01] MEDS: PRAZOSIN HCL 1 MG CAP PO SCH (22:23)
[2022-06-01] MEDS: CARBIDOPA/LEVODOPA 25/100MG TAB PO SCH (22:24)
[2022-06-01] MEDS: CYCLOBENZAPRINE HCL 10 MG TAB PO SCH (22:24)
[2022-06-01] MEDS: APIXABAN 5 MG TABLET PO SCH (22:24)
[2022-06-01] MEDS: busPIRone 7.5 MG TAB PO SCH (22:24)
[2022-06-01] MEDS: HYDROXYUREA 500 MG CAP PO SCH (22:25)
[2022-06-01] MEDS: SERTRALINE HCL 100 MG TABLET PO SCH (22:26)
[2022-06-01] MEDS: cefTRIAXone SODIUM 2,000 MG in DEXTROSE 5% 50 ML IV SCH (23:38)
[2022-06-02] MEDS ORDERED: MAGNESIUM SULFATE / D5W 1 GM/100 ML BAG IV ONE (00:29)
[2022-06-02] MEDS ORDERED: REMDESIVIR 200 MG in SODIUM CHLORIDE 0.9% 210 ML IV ONE (01:00)
[2022-06-02 03:11] LABS: Appearance Urine Clear (Clear); Bacteria Urine Automated Negative (Negative); Bilirubin Urine 1+ (Negative); Blood Urine Negative (Negative); Color Urine Dark Yellow; Glucose Urine UA Negative (Negative); Ketones Urine Trace (Negative); Leukocyte Esterase Urine Trace (Negative); Nitrite Urine Positive (Negative); Protein Urine Trace (Negative); RBC Urine Automated 0-4 /hpf (0-4); Specific Gravity Urine 1.041 (1.000-1.030); Urobilinogen Urine Negative (Negative); WBC Urine Automated 0 /hpf (0-5)
[2022-06-02 06:30] LABS: Hematocrit (blood only) 28.2 % (42.0-52.0); Hemoglobin 8.9 g/dl (14.0-18.0); Mean Corpuscular Hemoglobin 29.5 pg (25.0-34.0); Mean Corpuscular Hgb Conc 31.6 g/dL (32.0-36.0); Mean Corpuscular Volume 93.4 fL (80.0-100.0); Mean Platelet Volume 10.8 fL (9.4-12.4); Platelet Count 209 K/uL (130-400); RDW Coefficient of Variation 16.3 % (11.5-14.5); RDW Standard Deviation 56.5 fL (36.4-46.3); Red Blood Count 3.02 M/uL (4.70-6.10); White Blood Count 2.93 K/ul (4.8-10.8)
[2022-06-02 06:46] LABS: Alanine Aminotransferase < 3 U/L (7-52); Albumin Globulin Ratio 1.1 (0.9-2); Albumin Level 3.3 gm/dl (3.4-5.0); Alkaline Phosphatase 61 U/L (34-104); Anion Gap 8 (3-11); Aspartate Aminotransferase 8 U/L (13-39); BUN Creatinine Ratio 15.9 (10-20); Bilirubin,Total 0.5 mg/dl (0.2-1.0); Blood Urea Nitrogen 14 mg/dl (6-23); Calcium 7.9 mg/dl (8.6-10.3); Carbon Dioxide 29 mmol/L (21-32); Chloride 102 mmol/L (98-107); Creatinine Clr Calc Pharmacy 76.2 ml/min; Est GFR (African American) 98.1 ml/min; Est GFR (Non-African American) 84.6 ml/min; Glucose 107 mg/dl (70-99(Fasting)); Potassium 3.3 mmol/L (3.5-5.1); Sodium 139 mmol/L (136-145); Total Protein 6.3 gm/dl (6.0-8.3)
[2022-06-02 07:22] LABS: Hypersegmented Neutrophils 1+; Immature Granulocytes # (auto) 0.02 K/uL (0.01-0.20); Immature Granulocytes % (auto) 0.7 %; Lymphocytes # (auto) 0.19 K/uL (1.2-3.4); Lymphocytes % (auto) 6.5 %; Monocytes # (auto) 0.05 K/uL (0.11-0.59); Monocytes % (auto) 1.7 %; Neutrophils # (auto) 2.67 K/uL (1.40-6.50); Neutrophils % (auto) 91.1 %
[2022-06-02] MEDS ORDERED: POTASSIUM CHLORIDE CRTAB 20 MEQ TABCR PO STA (07:43)
--- NOTE | 2022-06-02 07:47 | Hospitalist Progress Note ---
Date of Service June 02, 2022 Assessment & Plan (1) Acute respiratory failure with hypoxia: Plan: No significant wheezing on exam to suggest COPD exacerbation. Suspect more due to COVID-19. Aim O2 sats > 90% (currently 97% on2L this morning --> titrated to 1L this aft ernoon) Added duoneb, incentive spirometer CPAP HS -- asked RN to contact RT to place for tonight Mag replacement as below, monitor on repeat PPI BID for esophagitis Supportive care Supplemental O2 as needed, will need 2step prior to d/c as not on O2 at home (2) COVID-19: Plan: Unclear duration of symptoms but given acute lymphopenia suspect he is in acute phases Vaccinated and boosted but never had infection previously Continue IV decadron 6mg daily, remdesivir Added incentive spirometer Added mucinex to help clear secretions, duonebs Maintain isolation precautions (3) Esophagitis: Plan: Main reason he came to ER ?secondary to Keflex Gastritis/esophagitis on CTAP Switch pantoprazole PO to IV and increased to BID checking iron studies as well for hgb 8.9 and appears baseline closer to 10- 11 check fecal occult blood as well (4) UTI (urinary tract infection): Plan: Diagnosed as outpatient . Repeat UA and culture --> UA w/o bacteria Remains on Ceftriaxone while inpatient -- will need navigator to reach out to [facility] tomorrow to see species for treatment/sensitivities (5) Hypomagnesemia: Plan: Magnesium level 1.2. Mg sulfate 2g IV given in ER. Additional 1g IV. --> Mag 2.0 on AM labs. Will attempt to keep closer to 2 w/ his hx paroxysmal afib as well as K ~4 Repeat level in AM (6) Hypokalemia: Plan: K 3.0 on admission, given 20meq KCL replacement --> K 3.3 on AM labs -- 40meq KCL PO x 1 for today, will attempt to keep closer to 4. Of note, patient on lasix daily at home but no supplementation (is on lisinopril 5mg daily --> resumed for today as not ordered) (7) Paroxysmal atrial fibrillation: Plan: Currently in NSR Anticoagulation with Eliquis No palpitations/lightheaded reported --> EKG for any symptoms/low threshold to move to monitored bed if needed Keep Mag ~2, K~4 as above (8) VIK on CPAP: Plan: BiPAP HS as able to tolerate -- refused last evening, will attempt again for tonight as patient has used at home but does admit not that often (9) PTSD (post-traumatic stress disorder): Plan: Do not wake patient by touching, only saying his name (served in 1960s) Continue sertraline, prazosin, bupropion Mood stable at present (10) Anemia: Plan: appears hgb lower than baseline levels, no significant IVF on admit but did get several mag of IV magnesium Check iron studies/B12/folate for completeness, fecal occult next bowel movement and continue PPI BID as above for esophagitis Monitor CBC in AM Plan VTE Prophylaxis - Eliquis Admission and Anticipated Discharge Date Admission Date: June 01, 2022 Supervising Physician Co-Signing Physician Notes The patient was not seen by me. The case was discussed with JOHAN Ingram. Chart reviewed. Agree with assessment and plan Subjective eval this afternoon, sleeping in bed. Down to 1L NC. Reports feeling poorly at home this past couple of days, cough/sob/sputum production from white/yellow/green in color but trouble coughing this up. On inhalers at home but not nebulizers. Appropriate responses to questions but slow to respond at times. Denied any blood in stool or urine (BM this morning per RN, no obvious bleeding) given hgb counts. No abdominal pain at present but states he did have at home recently. He states he does have a CPAP at home but doesn't use it all the time. Discussed would like him to utilize while inpatient and will order -- appears refused last night, encouraged to wear. No fever/chills at present. 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, stumps look good (prosthesis on chair in room) Psych: alert to person/place, not time, pleasant and cooperative with care Results & Data Results & Data Vital Signs (Past 12 Hours) Vital Signs Temp Pulse Pulse Resp BP Pulse Ox O2 Del Method 06/02/22 07:17 36.8 C 68 20 134/73 97 Nasal Cannula 06/01/22 20:48 36.7 C 75 18 140/73 97 Nasal Cannula 06/01/22 20:43 Nasal Cannula 06/01/22 20:10 74 O2 Flow Rate 06/02/22 07:17 2 06/01/22 20:48 3 06/01/22 20:43 2 06/01/22 20:10 Laboratory Results 06/02/22 06/02/22 06/02/22 Range/Units 13:35 05:59 05:59 WBC 2.93 L (4.8-10.8) K/ul RBC 3.02 L (4.70-6.10) M/uL Hgb 8.9 L (14.0-18.0) g/dl Hct 28.2 L (42.0-52.0) % MCV 93.4 (80.0-100.0) fL MCH 29.5 (25.0-34.0) pg MCHC 31.6 L (32.0-36.0) g/dL RDW Std Deviation 56.5 H (36.4-46.3) fL RDW Coeff of Hector 16.3 H (11.5-14.5) % Plt Count 209 (130-400) K/uL MPV 10.8 (9.4-12.4) fL Immature Gran % (Auto) 0.7 % Neut % (Auto) 91.1 % Lymph % (Auto) 6.5 % [place] % (Auto) 1.7 % Eos % (Auto) 0.0 % Baso % (Auto) 0.0 % Neut # (Auto) 2.67 (1.40-6.50) K/uL Lymph # (Auto) 0.19 L (1.2-3.4) K/uL [place] # (Auto) 0.05 L (0.11-0.59) K/uL Eos # (Auto) 0.00 (0-0.50) K/uL Baso # (Auto) 0.00 (0-0.2) K/uL Immature Gran # (Auto) 0.02 (0.01-0.20) K/uL Hypersegmented Neuts 1+ Sodium 139 (136-145) mmol/L Potassium 3.3 L (3.5-5.1) mmol/L Chloride 102 (98-107) mmol/L Carbon Dioxide 29 (21-32) mmol/L Anion Gap 8 (3-11) BUN 14 (6-23) mg/dl Creatinine 0.88 (0.6-1.4) mg/dl Est Cr Clr Drug Dosing 76.2 ml/min Est GFR ( Amer) 98.1 ml/min Est GFR (Non-Af Amer) 84.6 ml/min BUN/Creatinine Ratio 15.9 (10-20) Glucose 107 H (70-99(Fasting)) mg/dl Calcium 7.9 L (8.6-10.3) mg/dl Magnesium 2.0 (1.7-2.4) mg/dl Iron Cancelled 103 (35-175) mcg/dl TIBC Cancelled 174 L (250-450) mcg/dl Unsaturated IBC Cancelled 71 L (155-355) mcg/dl Transferrin % Sat Cancelled 59 H (20-50) % Ferritin Cancelled 293.0 (8-388) ng/ml Total Bilirubin 0.5 D (0.2-1.0) mg/dl AST 8 L (13-39) U/L ALT < 3 L (7-52) U/L Alkaline Phosphatase 61 (34-104) U/L C-Reactive Protein (0-0.5) mg/dl Total Protein 6.3 (6.0-8.3) gm/dl Albumin 3.3 L (3.4-5.0) gm/dl Globulin 3.0 (2.5-4.0) gm/dl Albumin/Globulin Ratio 1.1 (0.9-2) Vitamin B12 (180-914) pg/ml Folate (>5.38) ng/ml Procalcitonin (0-0.5) ng/ml Urine Color Urine Appearance (Clear) Urine pH (4.5-7.5) Ur Specific Mcgrann (1.000-1.030) Urine Protein (Negative) Urine Glucose (UA) (Negative) Urine Ketones (Negative) Urine Blood (Negative) Urine Nitrite (Negative) Urine Bilirubin (Negative) Urine Urobilinogen (Negative) Ur Leukocyte Esterase (Negative) Urine WBC (Auto) (0-5) /hpf Urine RBC (Auto) (0-4) /hpf U Hyaline Cast (Auto) (0-5) /lpf U Epithel Cells (Auto) (0-5) /lpf Urine Bacteria (Auto) (Negative) 06/02/22 06/01/22 06/01/22 Range/Units 02:57 17:58 17:58 WBC (4.8-10.8) K/ul RBC (4.70-6.10) M/uL Hgb (14.0-18.0) g/dl Hct (42.0-52.0) % MCV (80.0-100.0) fL MCH (25.0-34.0) pg MCHC (32.0-36.0) g/dL RDW Std Deviation (36.4-46.3) fL RDW Coeff of Hector (11.5-14.5) % Plt Count (130-400) K/uL MPV (9.4-12.4) fL Immature Gran % (Auto) % Neut % (Auto) % Lymph % (Auto) % [place] % (Auto) % Eos % (Auto) % Baso % (Auto) % Neut # (Auto) (1.40-6.50) K/uL Lymph # (Auto) (1.2-3.4) K/uL [place] # (Auto) (0.11-0.59) K/uL Eos # (Auto) (0-0.50) K/uL Baso # (Auto) (0-0.2) K/uL Immature Gran # (Auto) (0.01-0.20) K/uL Hypersegmented Neuts Sodium (136-145) mmol/L Potassium (3.5-5.1) mmol/L Chloride (98-107) mmol/L Carbon Dioxide (21-32) mmol/L Anion Gap (3-11) BUN (6-23) mg/dl Creatinine (0.6-1.4) mg/dl Est Cr Clr Drug Dosing ml/min Est GFR ( Amer) ml/min Est GFR (Non-Af Amer) ml/min BUN/Creatinine Ratio (10-20) Glucose (70-99(Fasting)) mg/dl Calcium (8.6-10.3) mg/dl Magnesium (1.7-2.4) mg/dl Iron (35-175) mcg/dl TIBC (250-450) mcg/dl Unsaturated IBC (155-355) mcg/dl Transferrin % Sat (20-50) % Ferritin (8-388) ng/ml Total Bilirubin (0.2-1.0) mg/dl AST (13-39) U/L ALT (7-52) U/L Alkaline Phosphatase (34-104) U/L C-Reactive Protein (0-0.5) mg/dl Total Protein (6.0-8.3) gm/dl Albumin (3.4-5.0) gm/dl Globulin (2.5-4.0) gm/dl Albumin/Globulin Ratio (0.9-2) Vitamin B12 492 (180-914) pg/ml Folate 11.69 (>5.38) ng/ml Procalcitonin < 0.05 (0-0.5) ng/ml Urine Color Dark Yellow Urine Appearance Clear (Clear) Urine pH 6.0 (4.5-7.5) Ur Specific Mcgrann 1.041 H (1.000-1.030) Urine Protein Trace H (Negative) Urine Glucose (UA) Negative (Negative) Urine Ketones Trace H (Negative) Urine Blood Negative (Negative) Urine Nitrite Positive A (Negative) Urine Bilirubin 1+ H (Negative) Urine Urobilinogen Negative (Negative) Ur Leukocyte Esterase Trace H (Negative) Urine WBC (Auto) 0 (0-5) /hpf Urine RBC (Auto) 0-4 (0-4) /hpf U Hyaline Cast (Auto) 1-5 (0-5) /lpf U Epithel Cells (Auto) 5-10 H (0-5) /lpf Urine Bacteria (Auto) Negative (Negative) 06/01/22 06/01/22 Range/Units 17:41 14:27 WBC (4.8-10.8) K/ul RBC (4.70-6.10) M/uL Hgb (14.0-18.0) g/dl Hct (42.0-52.0) % MCV (80.0-100.0) fL MCH (25.0-34.0) pg MCHC (32.0-36.0) g/dL RDW Std Deviation (36.4-46.3) fL RDW Coeff of Hector (11.5-14.5) % Plt Count (130-400) K/uL MPV (9.4-12.4) fL Immature Gran % (Auto) % Neut % (Auto) % Lymph % (Auto) % [place] % (Auto) % Eos % (Auto) % Baso % (Auto) % Neut # (Auto) (1.40-6.50) K/uL Lymph # (Auto) (1.2-3.4) K/uL [place] # (Auto) (0.11-0.59) K/uL Eos # (Auto) (0-0.50) K/uL Baso # (Auto) (0-0.2) K/uL Immature Gran # (Auto) (0.01-0.20) K/uL Hypersegmented Neuts Sodium (136-145) mmol/L Potassium (3.5-5.1) mmol/L Chloride (98-107) mmol/L Carbon Dioxide (21-32) mmol/L Anion Gap (3-11) BUN (6-23) mg/dl Creatinine (0.6-1.4) mg/dl Est Cr Clr Drug Dosing ml/min Est GFR ( Amer) ml/min Est GFR (Non-Af Amer) ml/min BUN/Creatinine Ratio (10-20) Glucose (70-99(Fasting)) mg/dl Calcium (8.6-10.3) mg/dl Magnesium (1.7-2.4) mg/dl Iron (35-175) mcg/dl TIBC (250-450) mcg/dl Unsaturated IBC (155-355) mcg/dl Transferrin % Sat (20-50) % Ferritin (8-388) ng/ml Total Bilirubin (0.2-1.0) mg/dl AST (13-39) U/L ALT (7-52) U/L Alkaline Phosphatase (34-104) U/L C-Reactive Protein Cancelled 4.85 H (0-0.5) mg/dl Total Protein (6.0-8.3) gm/dl Albumin (3.4-5.0) gm/dl Globulin (2.5-4.0) gm/dl Albumin/Globulin Ratio (0.9-2) Vitamin B12 (180-914) pg/ml Folate (>5.38) ng/ml Procalcitonin (0-0.5) ng/ml Urine Color Urine Appearance (Clear) Urine pH (4.5-7.5) Ur Specific [place] (1.000-1.030) Urine Protein (Negative) Urine Glucose (UA) (Negative) Urine Ketones (Negative) Urine Blood (Negative) Urine Nitrite (Negative) Urine Bilirubin (Negative) Urine Urobilinogen (Negative) Ur Leukocyte Esterase (Negative) Urine WBC (Auto) (0-5) /hpf Urine RBC (Auto) (0-4) /hpf U Hyaline Cast (Auto) (0-5) /lpf U Epithel Cells (Auto) (0-5) /lpf Urine Bacteria (Auto) (Negative) Diagnostic Findings Abdomen/Pelvis CT 06/01/22 14:[address] WITH IV CONTRAST CT DOSE: 1398.50 mGy.cm HISTORY: Acute left lower quadrant abdominal pain llq pain TECHNIQUE: Multiaxial CT images of the abdomen and pelvis were performed following the IV administration of 85 cc of Optiray, A dose lowering technique was utilized adhering to the principles of ALARA. COMPARISON STUDY: CTA runoff 06/27/2019 FINDINGS: Moderate cardiomegaly with moderate coronary artery calcifications. Trace pericardial effusion. Mild bibasilar atelectasis. No pneumatosis or pneumoperitoneum. Spleen is enlarged measuring up to 15.9 cm in length. Mild to moderate pancreatic atrophy. Unremarkable left adrenal gland. 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 Unremarkable gallbladder. Liver is within normal limits. Patent portal vein. Mild cortical thinning of the kidneys with nonspecific bilateral perinephric stranding. 4 mm nonobstructing calculus of the interpolar right kidney. No ureteral calculi or hydronephrosis. There is mild circumferential urinary bladder wall thickening. Prostate is upper limits of normal in size. Atherosclerosis of the aorta without aneurysm. No lymphadenopathy. Mild wall thickening of the fluid-filled distal esophagus with trace adjacent inflammatory stranding. Postoperative changes suggestive of partial sigmoid colon resection with colocolonic anastomosis. Soft tissue thickening within the lower lumbar prevertebral tissues is likely on a postoperative basis with adjacent surgical clips. Normal appendix. Unremarkable soft tissues. No acute fracture. Degenerative changes of the spine, pelvis and hips. Discectomy with posterior interbody adelso and screw fusion at L5-S1. The hardware appears intact. IMPRESSION: 1. Fluid-filled distal esophagus with mild wall thickening and adjacent inflammatory stranding. Findings are suspicious for esophagitis. 2. No bowel obstruction or bowel wall thickening. 3. Partial sigmoid colon resection with colocolonic anastomosis. 4. Moderate splenomegaly. 5. Right nephrolithiasis. ACT 112: Negative or not required by law. The above report was generated using voice recognition software. It may contain grammatical, syntax or spelling errors. Electronically signed by: Natanael Valladares M.D. 06/01/2022 4:06 PM Chest X-Ray 06/01/22 14:20 XR chest 1V portable HISTORY: 76 years-old Male sob acute shortness of breath with confusion COMPARISON: Chest radiograph 03/16/2022 TECHNIQUE: AP view of the chest FINDINGS: Cardiac silhouette is enlarged. Unchanged right hemidiaphragmatic elevation. No pneumothorax, pleural effusion, airspace consolidation or pulmonary edema. Bones appear grossly intact. IMPRESSION: Cardiomegaly without acute process. ACT 112: Negative or not required by law. The above report was generated using voice recognition software. It may contain grammatical, syntax or spelling errors. Electronically signed by: Natanael Valladares M.D. 06/01/2022 2:51 PM PG Care Time/CCT Total # of Minutes Spent Total Time Spent with Patient: Total time spent is greater than 50% in coordination of care (as documented) at patient's floor/unit and/or counseling patient: Coding Level of Care Code 80206 SUB INP/OBS CARE 3/50MIN Diagnoses Acute respiratory failure with hypoxia J96.01 COVID-19 U07.1 Esophagitis K20.90 UTI (urinary tract infection) N39.0 Hypomagnesemia E83.42 Hypokalemia E87.6 Paroxysmal atrial fibrillation I48.0 VIK on CPAP G47.33; Z99.89 PTSD (post-traumatic stress disorder) F43.10 Anemia D64.9
[2022-06-02] MEDS: guaiFENesin 600 MG TABCR PO SCH ×2 (08:56→20:06)
[2022-06-02] MEDS: PREGABALIN 150 MG CAP PO SCH ×2 (08:56→20:06)
[2022-06-02] MEDS: lisinopril 5 MG TAB PO SCH (08:56)
[2022-06-02] MEDS: PANTOprazole 40 MG in SYRINGE 0 ML IV SCH ×2 (08:57→20:08)
[2022-06-02] MEDS: dexAMETHasone 6 MG in SYRINGE 0 ML IV SCH (08:57)
[2022-06-02] MEDS: SERTRALINE HCL 100 MG TABLET PO SCH ×2 (08:58→20:08)
[2022-06-02] MEDS: CARBIDOPA/LEVODOPA 25/100MG TAB PO SCH ×3 (08:58→20:08)
[2022-06-02] MEDS: busPIRone 7.5 MG TAB PO SCH ×3 (08:58→20:06)
[2022-06-02] MEDS: CYCLOBENZAPRINE HCL 10 MG TAB PO SCH ×2 (08:58→20:06)
[2022-06-02] MEDS: APIXABAN 5 MG TABLET PO SCH ×2 (08:58→20:06)
[2022-06-02] MEDS: HYDROXYUREA 500 MG CAP PO SCH ×2 (08:58→20:04)
[2022-06-02] MEDS: buPROPion XL 300 MG TABCR PO SCH (08:59)
[2022-06-02] MEDS: METOPROLOL TARTRATE 25 MG TAB PO SCH ×2 (08:59→20:06)
[2022-06-02] MEDS: MONTELUKAST SODIUM 10 MG TABLET PO SCH (08:59)
[2022-06-02] MEDS: ATORVASTATIN 10 MG TAB PO SCH (08:59)
[2022-06-02] MEDS: FINASTERIDE 5 MG TAB PO SCH (08:59)
[2022-06-02] MEDS: MEMANTINE HCL 5 MG TAB PO SCH (08:59)
[2022-06-02] MEDS: FUROSEMIDE 20 MG TAB PO SCH (09:00)
[2022-06-02] MEDS: FLUTICASONE/VILANTEROL 200/25MCG 14 PUFFS/INHALER INH SCH (09:00)
[2022-06-02] MEDS: UMECLIDINIUM BROMIDE 62.5MCG/BLISTER 7 PUFFS/INHALER INH SCH (09:00)
[2022-06-02 14:44] LABS: Iron 103 mcg/dl (35-175); Total Iron Binding Cap Calc 174 mcg/dl (250-450); Transferrin (FE) Percent Satur 59 % (20-50); Unsaturated Iron Binding Cap 71 mcg/dl (155-355)
[2022-06-02] MEDS ORDERED: ONDANSETRON INJ 2 MG/ML 2 ML VIAL IV PRN (18:56)
[2022-06-02] MEDS: ALBUT/IPRATROP 3MG/0.5MG NEB 3 ML VIAL NEB SCH ×2 (19:19→23:16)
[2022-06-02] MEDS: PRAZOSIN HCL 1 MG CAP PO SCH (20:05)
[2022-06-02] MEDS: traZODone HCL 50 MG TAB PO SCH (20:06)
[2022-06-02] MEDS: cefTRIAXone SODIUM 2,000 MG in DEXTROSE 5% 50 ML IV SCH (22:49)
[2022-06-03] MEDS: ALBUT/IPRATROP 3MG/0.5MG NEB 3 ML VIAL NEB SCH ×7 (03:51→22:37)
--- NOTE | 2022-06-03 08:07 | Hospitalist Progress Note ---
Date of Service June 03, 2022 Assessment & Plan (1) Acute respiratory failure with hypoxia: Plan: No significant wheezing on exam to suggest COPD exacerbation. Suspect more due to COVID-19. Aim O2 sats > 90% (currently 97% on2L this morning --> titrated to 1L this aft ernoon) Added duoneb, incentive spirometer CPAP HS -- asked RN to contact RT to place for tonight Mag replacement as below, monitor on repeat PPI BID for esophagitis on admit Supportive care 06/03 --> 1-2 L via NC, reports breathing about the same --> review prior recs w/ inpatient influenza, discussed w/ pulm (can consult if worsened tomorrow) --> added hypertonic saline neb/vibration vest this morning, budesonide nebs this afternoon --> ABG w/o significant CO2 retention but declined CPAP last night but is agreeable today (issues w/ headgear per patient and convo w/ ) --> Epigastric pain/reflux -- Pepcid IV x 1 now, scheduled carafate for esophagitis symptoms. req GI consultation Titrate O2 to maintain Sats -> 91% on RA this afternoon, supplemental as needed Will need 2step prior to d/c He will need outpt PFTs/NIOX testing in f/u -- will have navigator assit but likely needs done through [facility] (2) COVID-19: Plan: Unclear duration of symptoms but given acute lymphopenia suspect he is in acute phases -- does report he has been feeling ill for about 3 weeks. Vaccinated but never + for COVID in the past. Continue decadron IV, remdesivir Continue incentive spirometer, flutter valve Added hypertonic saline, budesonide nebs, sputum cx if able to produce. Added vibration vest to assist to clear secretions Consult pulm if worsening tomorrow Maintain isolation precautions O2 as needed to maintain sats (3) Esophagitis: Plan: Main reason he came to ER ?secondary to Keflex Gastritis/esophagitis on CTAP Switch pantoprazole PO to IV and increased to BID, added dose pepcid x 1 today and added carafate requesting GI consultation, placed -- appreciate recs Repeat KUB Of note, hgb lower than prior -- at [facility] was in 10s, 9.4 on admit --> 8.9 -> 8.8 No active bleeding noted, large BM 06/02 no ruthie bleeding. Fecal occult next stools for further eval Iron studies w/o significant SARAH, testing in setting active covid infection however and ferritin not overly elevated at 293 (4) UTI (urinary tract infection): Plan: Diagn[facility], however [facility] and appears culture cancelled due to discoloration from Azo Repeat UA w/o bacteria but had been on keflex. Will continue Rocephin for now, plan for 3 days IV to complete/monitor for worsening symptoms Appears has BPH, on finasteride at baseline -- reported burning w/ [facility]ination [facility] (5) Hypomagnesemia: Plan: Magnesium level 1.2 on admit, IV replacement ordered Mag level reviewed on AM labs, 2.0 --> keep closer to 2 w/ hx paroxysmal afib, K~4 (6) Hypokalemia: Plan: K 3.0 on admission, given 20meq KCL replacement and repeat 3.3 and again 3.3 with 40meq PO yesterday Lisinopril resumed 06/02 Ordered additional 40meq x 1 this morning and will scheduled 20meq BID. As on lasix, patient may require daily dosing at discharge while on diuretic therapy (7) Paroxysmal atrial fibrillation: Plan: Currently in NSR Anticoagulation with Eliquis No palpitations/lightheaded reported --> EKG for any symptoms/low threshold to move to monitored bed if needed Keep Mag ~2, K~4 as above (8) VIK on CPAP: Plan: BiPAP HS as able to tolerate -- refused last evening but further discussion and with and patient Per , issues with headgear/not fitting at home, had attempted nasal cannulas --> asked RT to attempt CPAP w/ different mask/gear for this afternoon and to utilize at night and when sleeping (9) PTSD (post-traumatic stress disorder): Plan: Do not wake patient by touching, 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 May need to consider holding eliquis if having any issues (11) Nephrolithiasis: Plan: noted 3mm nonobstructing calculi R jessi, mild circumferential urinary bladder wall thickening prior following w/ urology, BPH continue finasteride, no flank pain reported at present, continues on tx for UTI as started STAFFING RN If any issues w/ voiding, bladder scan as needed, consult urology if needed Plan VTE Prophylaxis - Eliquis Admission and Anticipated Discharge Date Admission Date: June 01, 2022 Supervising Physician Co-Signing Physician Notes The patient was not seen by me. The chart was reviewed. Case discussed with JOHAN Ingram. Agree with assessment and plan Subjective Eval this afternoon, just finished lunch. Having some reflux following lunch. Does have hx of. Discussed will order pepcid x 1 now, carafate and as inquiring about GI consultation will place such. No vomiting at present but describing epigastric discomfort however he does have lower abdominal discomfort on examination, tender to palpation lower/suprapubic region. LARGE BM yesterday morning, good appetite reported. +cough. On 2L, states breathing about the same. He did use vibration vest this morning. Discussed ordered hypertonic saline to help with secretions and will order budesonide nebulizers to help with inflammation as well. He is agreeable to wear the CPAP tonight -- asking medical secretary to call while napping this afternoon. He has issues w/ headgear at home -- will ask RT about different devices to attempt. She reports he had improving since his inpatient stay for influenza, however she notes he never really got back to feeling like himself. Currently has been feeling poorly for about the past 3 weeks. Will continue to monitor. CM attempting to see if [facility] ever sent for [facility] culture. Physical Exam Physical Exam: General: chronically ill appearing male resting in bed upon entry, slightly disheveled but improved appearance today, NAD but reporting some reflux/epigastric discomfort after eating lunch HEENT head normocephalic, mmm, trachea midline Resp: fine bilateral crackles, slightly diminished in the bases, no wheezing, on 2L NC, not able to speak in complete sentences, +occasional cough CV: RRR, +systolic murmur, no pitting edema GI: +BS, slight distension, TENDER epigastric region as well as lower abdominal branham but no peritoneal signs at present, no warmth/erythema : no rooney MSK/Neuro: 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0-36.0) g/dL RDW Std Deviation 56.0 H (36.4-46.3) fL RDW Coeff of Hector 16.3 H (11.5-14.5) % Plt Count 197 (130-400) K/uL MPV 10.6 (9.4-12.4) fL ABG pH 7.43 (7.35-7.45) ABG pCO2 46 (35-46) mmHg ABG pO2 87 (80-95) mmHg ABG HCO3 31 H (19-24) mmol/L ABG O2 Saturation 98.9 H (90-95) % ABG Base Excess 5.3 H (-9-1.8) mEq/L John Test POS (Pos) Oxygen Given 2L O2 Sodium 140 (136-145) mmol/L Potassium 3.3 L (3.5-5.1) mmol/L Chloride 105 (98-107) mmol/L Carbon Dioxide 33 H (21-32) mmol/L Anion Gap 2 L (3-11) BUN 16 (6-23) mg/dl Creatinine 0.78 (0.6-1.4) mg/dl Est Cr Clr Drug Dosing 86.0 ml/min Est GFR ( Amer) 103.1 ml/min Est GFR (Non-Af Amer) 88.9 ml/min BUN/Creatinine Ratio 20.5 H (10-20) Glucose 103 H (70-99(Fasting)) mg/dl Calcium 8.1 L (8.6-10.3) mg/dl Magnesium 2.0 (1.7-2.4) mg/dl Iron (35-175) mcg/dl TIBC (250-450) mcg/dl Unsaturated IBC (155-355) mcg/dl Transferrin % Sat (20-50) % Ferritin (8-388) ng/ml Total Bilirubin 0.4 (0.2-1.0) mg/dl AST 9 L (13-39) U/L ALT < 3 L (7-52) U/L Alkaline Phosphatase 54 (34-104) U/L Total Protein 6.0 (6.0-8.3) gm/dl Albumin 3.3 L (3.4-5.0) gm/dl Globulin 2.7 (2.5-4.0) gm/dl Albumin/Globulin Ratio 1.2 (0.9-2) Vitamin B12 (180-914) pg/ml Folate (>5.38) ng/ml 06/02/22 06/02/22 06/01/22 Range/Units 13:35 05:59 17:58 WBC (4.8-10.8) K/ul RBC (4.70-6.10) M/uL Hgb (14.0-18.0) g/dl Hct (42.0-52.0) % MCV (80.0-100.0) fL MCH (25.0-34.0) pg MCHC (32.0-36.0) g/dL RDW Std Deviation (36.4-46.3) fL RDW Coeff of Hector (11.5-14.5) % Plt Count (130-400) K/uL MPV (9.4-12.4) fL ABG pH (7.35-7.45) ABG pCO2 (35-46) mmHg ABG pO2 (80-95) mmHg ABG HCO3 (19-24) mmol/L ABG O2 Saturation (90-95) % ABG Base Excess (-9-1.8) mEq/L John Test (Pos) Oxygen Given Sodium (136-145) mmol/L Potassium (3.5-5.1) mmol/L Chloride (98-107) mmol/L Carbon Dioxide (21-32) mmol/L Anion Gap (3-11) BUN (6-23) mg/dl Creatinine (0.6-1.4) mg/dl Est Cr Clr Drug Dosing ml/min Est GFR ( Amer) ml/min Est GFR (Non-Af Amer) ml/min BUN/Creatinine Ratio (10-20) Glucose (70-99(Fasting)) mg/dl Calcium (8.6-10.3) mg/dl Magnesium (1.7-2.4) mg/dl Iron Cancelled 103 (35-175) mcg/dl TIBC Cancelled 174 L (250-450) mcg/dl Unsaturated IBC Cancelled 71 L (155-355) mcg/dl Transferrin % Sat Cancelled 59 H (20-50) % Ferritin Cancelled 293.0 (8-388) ng/ml Total Bilirubin (0.2-1.0) mg/dl AST (13-39) U/L ALT (7-52) U/L Alkaline Phosphatase (34-104) U/L Total Protein (6.0-8.3) gm/dl Albumin (3.4-5.0) gm/dl Globulin (2.5-4.0) gm/dl Albumin/Globulin Ratio (0.9-2) Vitamin B12 492 (180-914) pg/ml Folate 11.69 (>5.38) ng/ml Diagnostic Findings Chest X-Ray 06/03/22 08:46 XR chest 1V portable CLINICAL HISTORY: f/u, eval pulm edema COMPARISON STUDY: Chest radiograph June 01, 2022. FINDINGS: There is no pneumothorax or pleural effusion. Patient is rotated. Cardiomegaly is unchanged. Mediastinal contours are stable. There is no consolidation to suggest pneumonia. There is no evidence for pulmonary edema. Linear right infrahilar opacity favors atelectasis. IMPRESSION: No acute cardiopulmonary findings. Cardiomegaly. No evidence for pulmonary edema. ACT 112: Negative or not required by law. Electronically signed by: Diego Jim M.D. 06/03/2022 10:59 AM PG Care Time/CCT Total # of Minutes Spent Total Time Spent with Patient: Total time spent is greater than 50% in coordination of care (as documented) at patient's floor/unit and/or counseling patient: Coding Level of Care Code 49801 SUB INP/OBS CARE 3/50MIN Diagnoses Acute respiratory failure with hypoxia J96.01 COVID-19 U07.1 Esophagitis K20.90 UTI (urinary tract infection) N39.0 Hypomagnesemia E83.42 Hypokalemia E87.6 Paroxysmal atrial fibrillation I48.0 VIK on CPAP G47.33; Z99.89 PTSD (post-traumatic stress disorder) F43.10 Anemia D64.9 Nephrolithiasis N20.0
[2022-06-03 08:26] LABS: Hemoglobin 8.8 g/dl (14.0-18.0); Mean Corpuscular Hemoglobin 29.3 pg (25.0-34.0); Mean Corpuscular Hgb Conc 31.4 g/dL (32.0-36.0); Mean Corpuscular Volume 93.3 fL (80.0-100.0); Mean Platelet Volume 10.6 fL (9.4-12.4); Platelet Count 197 K/uL (130-400); RDW Coefficient of Variation 16.3 % (11.5-14.5)
[2022-06-03 08:41] LABS: Alanine Aminotransferase < 3 U/L (7-52); Albumin Globulin Ratio 1.2 (0.9-2); Albumin Level 3.3 gm/dl (3.4-5.0); Alkaline Phosphatase 54 U/L (34-104); Anion Gap 2 (3-11); Aspartate Aminotransferase 9 U/L (13-39); BUN Creatinine Ratio 20.5 (10-20); Bilirubin,Total 0.4 mg/dl (0.2-1.0); Blood Urea Nitrogen 16 mg/dl (6-23); Calcium 8.1 mg/dl (8.6-10.3); Carbon Dioxide 33 mmol/L (21-32); Chloride 105 mmol/L (98-107); Est GFR (African American) 103.1 ml/min; Est GFR (Non-African American) 88.9 ml/min; Globulin 2.7 gm/dl (2.5-4.0); Glucose 103 mg/dl (70-99(Fasting)); Potassium 3.3 mmol/L (3.5-5.1); Sodium 140 mmol/L (136-145)
[2022-06-03] MEDS ORDERED: POTASSIUM CHLORIDE CRTAB 20 MEQ TABCR PO STA (08:46)
[2022-06-03] MEDS: PREGABALIN 150 MG CAP PO SCH ×2 (08:52→20:10)
[2022-06-03] MEDS: guaiFENesin 600 MG TABCR PO SCH ×2 (08:56→20:11)
[2022-06-03] MEDS: busPIRone 7.5 MG TAB PO SCH ×3 (08:56→20:11)
[2022-06-03] MEDS: SERTRALINE HCL 100 MG TABLET PO SCH ×2 (08:57→20:12)
[2022-06-03] MEDS: CYCLOBENZAPRINE HCL 10 MG TAB PO SCH ×2 (08:58→20:15)
[2022-06-03] MEDS: APIXABAN 5 MG TABLET PO SCH ×2 (08:58→20:10)
[2022-06-03] MEDS: CARBIDOPA/LEVODOPA 25/100MG TAB PO SCH ×3 (08:59→20:14)
[2022-06-03] MEDS: lisinopril 5 MG TAB PO SCH (09:03)
[2022-06-03] MEDS: FINASTERIDE 5 MG TAB PO SCH (09:04)
[2022-06-03] MEDS: MEMANTINE HCL 5 MG TAB PO SCH (09:04)
[2022-06-03] MEDS: MONTELUKAST SODIUM 10 MG TABLET PO SCH (09:04)
[2022-06-03] MEDS: ATORVASTATIN 10 MG TAB PO SCH (09:04)
[2022-06-03] MEDS: FUROSEMIDE 20 MG TAB PO SCH (09:05)
[2022-06-03] MEDS: buPROPion XL 300 MG TABCR PO SCH (09:05)
[2022-06-03] MEDS: UMECLIDINIUM BROMIDE 62.5MCG/BLISTER 7 PUFFS/INHALER INH SCH (09:11)
[2022-06-03] MEDS: FLUTICASONE/VILANTEROL 200/25MCG 14 PUFFS/INHALER INH SCH (09:11)
[2022-06-03] MEDS: PANTOprazole 40 MG in SYRINGE 0 ML IV SCH ×2 (09:13→20:15)
[2022-06-03] MEDS: dexAMETHasone 6 MG in SYRINGE 0 ML IV SCH (09:13)
[2022-06-03] MEDS: HYDROXYUREA 500 MG CAP PO SCH ×2 (09:44→20:12)
[2022-06-03] MEDS: METOPROLOL TARTRATE 25 MG TAB PO SCH ×2 (09:45→20:12)
--- NOTE | 2022-06-03 11:01 | XRay Report ---
XR chest 1V portable CLINICAL HISTORY: f/u, eval pulm edema COMPARISON STUDY: Chest radiograph June 01, 2022. FINDINGS: There is no pneumothorax or pleural effusion. Patient is rotated. Cardiomegaly is unchanged . Mediastinal contours are stable. There is no consolidation to suggest pneumonia. There is no eviden ce for pulmonary edema. Linear right infrahilar opacity favors atelectasis. IMPRESSION: No acute cardiopulmonary findings. Cardiomegaly. No evidence for pulmonary edema. ACT 112: Negative or not required by law. Electronically signed by: Diego Jim M.D. 06/03/2022 10:59 AM
[2022-06-03] MEDS: REMDESIVIR 100 MG in SODIUM CHLORIDE 0.9% 230 ML IV SCH (12:45)
[2022-06-03 13:15] LABS: Allen Test POS (Pos)
[2022-06-03 13:16] LABS: Base Excess ABG 5.3 mEq/L (-9-1.8); HCO3 ABG 31 mmol/L (19-24); Oxygen Saturation ABG 98.9 % (90-95); PCO2 ABG 46 mmHg (35-46); PO2 ABG 87 mmHg (80-95); pH ABG 7.43 (7.35-7.45)
[2022-06-03] MEDS ORDERED: FAMOTIDINE 20 MG in SYRINGE 3 ML IV ONE (13:45)
--- NOTE | 2022-06-03 15:28 | XRay Report ---
KUB HISTORY: Generalized abdominal pain, reflux COMPARISON: Abdomen and pelvis CT 06/01/2022. FINDINGS: Borderline dilated gas-filled loops of large and small bowel seen within the abdomen. This may represent a mild ileus. No evidence for a bowel obstruction. There is also mild gaseous distentio n of the stomach. The spleen remains enlarged. Posterior fusion hardware at L5-S1 again noted. Mild v ascular calcifications are present. Old, healed left lower rib fractures. Right-sided nephrolithiasis . No ureteral calculi. No pneumoperitoneum or pneumatosis. IMPRESSION: 1. Borderline dilated gas-filled loops of large and small bowel seen within the abdomen. This may rep resent a mild ileus. No evidence for a bowel obstruction. 2. Right-sided nephrolithiasis again noted. ACT 112: Negative or not required by law. Electronically signed by: Will Barry M.D. 06/03/2022 3:27 PM
--- NOTE | 2022-06-03 16:22 | Communication Note ---
Date of Service: June 03, 2022 KUB w/ possible ileus. +BS on exam, and LARGE BM yesterday morning reported by nurse when I saw him yesterday. 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 Mindful that patient on lisinopril and PRA >1ng/mL/hr does NOT exclude diagnosis in follow-up.
[2022-06-03] MEDS: SUCRALFATE 1 GM/10 ML UDC PO SCH ×2 (17:24→20:14)
[2022-06-03] MEDS: BUDESONIDE 0.5 MG/2 ML VIAL (PULMICORT) NEB SCH (19:21)
[2022-06-03] MEDS: SODIUM CHLOR 7% 4 ML NEB NEB SCH (19:21)
[2022-06-03] MEDS: traZODone HCL 50 MG TAB PO SCH (20:11)
[2022-06-03] MEDS: PRAZOSIN HCL 1 MG CAP PO SCH (20:13)
[2022-06-03] MEDS ORDERED: POTASSIUM CHLORIDE 20 MEQ/15 ML UDC PO SCH (21:00)
[2022-06-03] MEDS: cefTRIAXone SODIUM 2,000 MG in DEXTROSE 5% 50 ML IV SCH (22:18)
[2022-06-04] MEDS: ALBUT/IPRATROP 3MG/0.5MG NEB 3 ML VIAL NEB SCH ×6 (02:51→23:12)
[2022-06-04 06:22] LABS: Hematocrit (blood only) 28.7 % (42.0-52.0); Hemoglobin 8.7 g/dl (14.0-18.0); Mean Corpuscular Hgb Conc 30.3 g/dL (32.0-36.0); Mean Corpuscular Volume 95.7 fL (80.0-100.0); Mean Platelet Volume 10.9 fL (9.4-12.4); Platelet Count 205 K/uL (130-400); RDW Coefficient of Variation 16.5 % (11.5-14.5); RDW Standard Deviation 57.9 fL (36.4-46.3); White Blood Count 3.98 K/ul (4.8-10.8)
[2022-06-04 06:38] LABS: Anion Gap 5 (3-11); BUN Creatinine Ratio 23.1 (10-20); Blood Urea Nitrogen 18 mg/dl (6-23); Carbon Dioxide 31 mmol/L (21-32); Chloride 106 mmol/L (98-107); Est GFR (African American) 103.1 ml/min; Est GFR (Non-African American) 88.9 ml/min; Glucose 97 mg/dl (70-99(Fasting)); Potassium 3.3 mmol/L (3.5-5.1); Sodium 142 mmol/L (136-145)
[2022-06-04 06:47] LABS: Alanine Aminotransferase < 3 U/L (7-52); Albumin Globulin Ratio 1.2 (0.9-2); Albumin Level 3.2 gm/dl (3.4-5.0); Alkaline Phosphatase 53 U/L (34-104); Aspartate Aminotransferase 8 U/L (13-39); Bilirubin,Total 0.3 mg/dl (0.2-1.0); Globulin 2.6 gm/dl (2.5-4.0); Magnesium 1.8 mg/dl (1.7-2.4); Total Protein 5.8 gm/dl (6.0-8.3)
[2022-06-04] MEDS: BUDESONIDE 0.5 MG/2 ML VIAL (PULMICORT) NEB SCH ×2 (07:08→19:57)
[2022-06-04] MEDS: SODIUM CHLOR 7% 4 ML NEB NEB SCH ×2 (07:45→19:57)
[2022-06-04] MEDS ORDERED: MAGNESIUM SULFATE / D5W 1 GM/100 ML BAG IV ONE (08:52)
--- NOTE | 2022-06-04 08:53 | Hospitalist Progress Note ---
Date of Service June 04, 2022 Assessment & Plan (1) Acute respiratory failure with hypoxia: Plan: No significant wheezing on exam to suggest COPD exacerbation and suspect more due to COVID-19. reports patient feeling ill for about the past 3 weeks. recent admit earlier this year for Influenza, reviewed tx at that time and discussed w/ pulm (can official consult if needed/worsened) Started hypertonic saline BID, vibration vest, budesonide BID -- continue Did tolerate BiPAP last evening, CO2 on chemistry improved and energy/mentation improved and reports improvement in breathing. Will see about different headgear for his home CPAP/promote compliance Continue tx for COVID 19 -- decadron, remdesivir, incentive spirometer, flutter valve, mucinex Sputum cx if able to obtain To 1L NC this afternoon, RN to titrate further as able will need 2 step prior to discharge as well as PFTs/NIOX testing in follow up -- instructor traffic safety can assist on monday See below for tx epigastric discomfort/ileus/gastritis (2) Ileus: Plan: checked due to nausea/abd pain, evidence for possible ileus. hx bowel surgery/anastomosis noted backed to full liquid 06/03, tolerating. +BS on exam and no pain reported ( exception reflux this AM w/ OJ, to avoid further citrus drinks) and will continue liquid diet for now and monitor KUB in AM. If any worsening/evidence for obstruction will need to c/w surgery tomorrow (3) COVID-19: Plan: Unclear duration of symptoms but given acute lymphopenia suspect he is in acute phases -- does report he has been feeling ill for about 3 weeks as above. Vaccinated but never + for COVID in the past. Continue decadron IV, remdesivir, pulmonary toilet as above Can consult pulm if needed/worsening Maintain isolation precautions, O2 as needed to maintain sats (4) Esophagitis: Plan: Main reason he came to ER ?secondary to Keflex Gastritis/esophagitis on CTAP, now w/ possible ileus Switched pantoprazole PO to IV and increased to BID on admission, added dose pepcid x 1 06/03 and repeat issues w/ pain after OJ this morning and scheduled daily Added carafate, continue GI consulted -- messaged, but was not alerted in sign off and will see later today if back in hospital or in AM. Prior discussed w/ likely to continue PPI BID/carafate and no inpatient scope (unless ruthie bleeding/other reason) KUB w/ ileus -- diet backed to full liquids, tolerating, +BS on exam and will continue for today and advance tomorrow im proving (last LARGE BM AM 06/02). Fecal occult next BM and check KUB in AM. If any worse, need to c/w surgery (discussed possible need for consult this AM w/ Dr Jc) (5) UTI (urinary tract infection): Plan: Diagnosed as outpatient, however [facility] and appears culture cancelled due to discoloration from Azo Repeat Ua/cx NEGATIVE, but had been on Keflex. Given Rocephin IV x 3 days, will discontinue Appears has BPH, on finasteride at baseline (6) Hypomagnesemia: Plan: Magnesium level 1.2 on admit, IV replacement ordered Mag level reviewed on AM labs, 1.8 and 1gm IV ordered --> keep closer to 2 w/ hx paroxysmal afib, K~4 (scheduled BID for today, increase if needed) (7) Hypokalemia: Plan: K 3.0 on admission, given 20meq KCL replacement and repeat 3.3 , again 3.3 Lisinopril resumed Given 40meq x 1 on 06/03 and still low 3.3 this morning (was given 20meq as scheduled BID) --> will increase to 40meq BID starting this evening/monitor labs in AM plasma renin/fatuma pending for further investigation as well (8) Paroxysmal atrial fibrillation: Plan: Currently in NSR Anticoagulation with Eliquis No palpitations/lightheaded reported --> EKG for any symptoms/low threshold to move to monitored bed if needed Keep Mag ~2, K~4 as above (9) VIK on CPAP: Plan: BiPAP HS as able to tolerate -- refused x 2 evening on admit, discussed w/ /patient and he was agreeable last evening BIPAP HS as tolerated -- see about getting different equipment/headgear at d/c (10) PTSD (post-traumatic stress disorder): Plan: Do not wake patient by touching, 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 May need to consider holding eliquis if having any issues of note, patient on hydroxyurea of essential thrombocytosis (plt in 1k in past 2 years) -- may need to consider holding this medication if any signifciant drop fecal occult next stool (12) Nephrolithiasis: Plan: noted 3mm nonobstructing calculi R jessi, mild circumferential urinary bladder wall thickening prior following w/ urology, BPH continue finasteride, no flank pain reported at present, continues on tx for UTI as started [employer] If any issues w/ voiding, bladder scan as needed, consult urology if needed Plan VTE Prophylaxis - Eliquis Admission and Anticipated Discharge Date Admission Date: June 01, 2022 Supervising Physician Co-Signing Physician Notes The patient was not seen by me. The chart was reviewed. Case discussed with JOHAN Ingram. Agree with assessment and plan Subjective Evaluated this afternoon, States feels breathing is improved a little, did tolerate PPV last night and much more alert this morning/more energy. He said the mask/headgear fit better -- will see if RT able to give info to see if able to get him same at home so he is more compliant. Getting breathing treatments/vibration vest and reporting clearing a little more sputum, but not as much as he'd like. Does endorse having less tightness. Had some increase reflux/epigastric discomfort after orange juice this morning. Discussed avoiding citrus for now. No nausea/abdominal pain. +BS, but no further BM. Discussed awaiting KUB results but will continue current diet for now. Daughter at bedside. To titrate to room air as able. Review of Systems Review of Systems: All systems reviewed & are unremarkable except as noted in HPI & below Physical Exam Physical Exam: General: chronically ill appearing male sitting up in bed, daughter at bedside, improvement in energy/imperativeness, got sleep overnight, NAD HEENT head normocephalic, mmm, trachea midline Resp: fine bilateral crackles, less diminished in the bases/improvement in air entry, end expiratory wheezing lower lung branham, on 2L 95%, able to speak longer without getting as winded, +occasional cough CV: RRR, +systolic murmur, no pitting edema GI: +BS, slight distension but not overly tender to palpation in epigastric region, some mild suprapubic discomfort noted, no peritoneal signs, no guarding/rebound : no rooney MSK/Neuro: 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, stumps look good (prosthesis on chair in room) Psych: alert to person/place, not time, pleasant and cooperative with care (memory issues at baseline per family) Results & Data Results & Data Vital Signs (Past 12 Hours) Vital Signs Temp Pulse Pulse Resp BP Pulse Ox O2 Del Method 06/04/22 07:25 36.4 C L 56 L 16 126/76 98 Nebulizer 06/04/22 07:11 62 12 93 Nasal Cannula 06/04/22 02:53 62 16 94 BiPAP 06/04/22 02:51 62 16 94 06/03/22 22:40 67 16 96 06/03/22 22:37 67 16 96 BiPAP 06/03/22 21:17 Nasal Cannula O2 Flow Rate 06/04/22 07:25 06/04/22 07:11 2 06/04/22 02:53 2 06/04/22 02:51 2 06/03/22 22:40 2 06/03/22 22:37 2 06/03/22 21:17 1 Laboratory Results 06/04/22 06/04/22 06/04/22 Range/Units 05:43 05:43 05:43 WBC 3.98 L (4.8-10.8) K/ul RBC 3.00 L (4.70-6.10) M/uL Hgb 8.7 L (14.0-18.0) g/dl Hct 28.7 L (42.0-52.0) % MCV 95.7 (80.0-100.0) fL MCH 29.0 (25.0-34.0) pg MCHC 30.3 L (32.0-36.0) g/dL RDW Std Deviation 57.9 H (36.4-46.3) fL RDW Coeff of Hector 16.5 H (11.5-14.5) % Plt Count 205 (130-400) K/uL MPV 10.9 (9.4-12.4) fL ABG pH (7.35-7.45) ABG pCO2 (35-46) mmHg ABG pO2 (80-95) mmHg ABG HCO3 (19-24) mmol/L ABG O2 Saturation (90-95) % ABG Base Excess (-9-1.8) mEq/L John Test (Pos) Oxygen Given Sodium (136-145) mmol/L Potassium (3.5-5.1) mmol/L Chloride (98-107) mmol/L Carbon Dioxide (21-32) mmol/L Anion Gap (3-11) BUN (6-23) mg/dl Creatinine (0.6-1.4) mg/dl Est Cr Clr Drug Dosing ml/min Est GFR ( Amer) ml/min Est GFR (Non-Af Amer) ml/min BUN/Creatinine Ratio (10-20) Glucose (70-99(Fasting)) mg/dl Calcium (8.6-10.3) mg/dl Magnesium (1.7-2.4) mg/dl Total Bilirubin (0.2-1.0) mg/dl AST (13-39) U/L ALT (7-52) U/L Alkaline Phosphatase (34-104) U/L Total Protein (6.0-8.3) gm/dl Albumin (3.4-5.0) gm/dl Globulin (2.5-4.0) gm/dl Albumin/Globulin Ratio (0.9-2) Renin Activity Pending Aldosterone Pending 06/04/22 06/03/22 Range/Units 05:43 13:07 WBC (4.8-10.8) K/ul RBC (4.70-6.10) M/uL Hgb (14.0-18.0) g/dl Hct (42.0-52.0) % MCV (80.0-100.0) fL MCH (25.0-34.0) pg MCHC (32.0-36.0) g/dL RDW Std Deviation (36.4-46.3) fL RDW Coeff of Hector (11.5-14.5) % Plt Count (130-400) K/uL MPV (9.4-12.4) fL ABG pH 7.43 (7.35-7.45) ABG pCO2 46 (35-46) mmHg ABG pO2 87 (80-95) mmHg ABG HCO3 31 H (19-24) mmol/L ABG O2 Saturation 98.9 H (90-95) % ABG Base Excess 5.3 H (-9-1.8) mEq/L John Test POS (Pos) Oxygen Given 2L O2 Sodium 142 (136-145) mmol/L Potassium 3.3 L (3.5-5.1) mmol/L Chloride 106 (98-107) mmol/L Carbon Dioxide 31 (21-32) mmol/L Anion Gap 5 (3-11) BUN 18 (6-23) mg/dl Creatinine 0.78 (0.6-1.4) mg/dl Est Cr Clr Drug Dosing 86.0 ml/min Est GFR ( Amer) 103.1 ml/min Est GFR (Non-Af Amer) 88.9 ml/min BUN/Creatinine Ratio 23.1 H (10-20) Glucose 97 (70-99(Fasting)) mg/dl Calcium 8.0 L (8.6-10.3) mg/dl Magnesium 1.8 (1.7-2.4) mg/dl Total Bilirubin 0.3 (0.2-1.0) mg/dl AST 8 L (13-39) U/L ALT < 3 L (7-52) U/L Alkaline Phosphatase 53 (34-104) U/L Total Protein 5.8 L (6.0-8.3) gm/dl Albumin 3.2 L (3.4-5.0) gm/dl Globulin 2.6 (2.5-4.0) gm/dl Albumin/Globulin Ratio 1.2 (0.9-2) Renin Activity Aldosterone Diagnostic Findings KUB X-Ray 06/03/22 14:02 KUB HISTORY: Generalized abdominal pain, reflux COMPARISON: Abdomen and pelvis CT 06/01/2022. FINDINGS: Borderline dilated gas-filled loops of large and small bowel seen within the abdomen. This may represent a mild ileus. No evidence for a bowel obstruction. There is also mild gaseous distention of the stomach. The spleen remains enlarged. Posterior fusion hardware at L5-S1 again noted. Mild vascular calcifications are present. Old, healed left lower rib fractures. Right-sided nephrolithiasis. No ureteral calculi. No pneumoperitoneum or pneumatosis. IMPRESSION: 1. Borderline dilated gas-filled loops of large and small bowel seen within the abdomen. This may represent a mild ileus. No evidence for a bowel obstruction. 2. Right-sided nephrolithiasis again noted. ACT 112: Negative or not required by law. Electronically signed by: Will Barry M.D. 06/03/2022 3:27 PM PG Care Time/CCT Total # of Minutes Spent Total Time Spent with Patient: Total time spent is greater than 50% in coordination of care (as documented) at patient's floor/unit and/or counseling patient: Coding Level of Care Code 90568 SUB INP/OBS CARE 3/50MIN Diagnoses Acute respiratory failure with hypoxia J96.01 Ileus K56.7 COVID-19 U07.1 Esophagitis K20.90 UTI (urinary tract infection) N39.0 Hypomagnesemia E83.42 Hypokalemia E87.6 Paroxysmal atrial fibrillation I48.0 VIK on CPAP G47.33; Z99.89 PTSD (post-traumatic stress disorder) F43.10 Anemia D64.9 Nephrolithiasis N20.0
[2022-06-04] MEDS ORDERED: POTASSIUM CHLORIDE CRTAB 20 MEQ TABCR PO SCH (09:00)
[2022-06-04] MEDS: dexAMETHasone 6 MG in SYRINGE 0 ML IV SCH (09:33)
[2022-06-04] MEDS: PANTOprazole 40 MG in SYRINGE 0 ML IV SCH ×2 (09:37→21:11)
[2022-06-04] MEDS: UMECLIDINIUM BROMIDE 62.5MCG/BLISTER 7 PUFFS/INHALER INH SCH (09:41)
[2022-06-04] MEDS: FUROSEMIDE 20 MG TAB PO SCH (09:42)
[2022-06-04] MEDS: CYCLOBENZAPRINE HCL 10 MG TAB PO SCH ×2 (09:42→21:14)
[2022-06-04] MEDS: busPIRone 7.5 MG TAB PO SCH ×3 (09:43→21:16)
[2022-06-04] MEDS: PREGABALIN 150 MG CAP PO SCH ×2 (09:43→21:14)
[2022-06-04] MEDS: FINASTERIDE 5 MG TAB PO SCH (09:43)
[2022-06-04] MEDS: guaiFENesin 600 MG TABCR PO SCH ×2 (09:43→21:15)
[2022-06-04] MEDS: MEMANTINE HCL 5 MG TAB PO SCH (09:43)
[2022-06-04] MEDS: METOPROLOL TARTRATE 25 MG TAB PO SCH ×2 (09:43→21:14)
[2022-06-04] MEDS: ATORVASTATIN 10 MG TAB PO SCH (09:44)
[2022-06-04] MEDS: MONTELUKAST SODIUM 10 MG TABLET PO SCH (09:44)
[2022-06-04] MEDS: APIXABAN 5 MG TABLET PO SCH ×2 (09:44→21:18)
[2022-06-04] MEDS: CARBIDOPA/LEVODOPA 25/100MG TAB PO SCH ×3 (09:44→21:16)
[2022-06-04] MEDS: SERTRALINE HCL 100 MG TABLET PO SCH ×2 (09:44→21:19)
[2022-06-04] MEDS: lisinopril 5 MG TAB PO SCH (09:44)
[2022-06-04] MEDS: SUCRALFATE 1 GM/10 ML UDC PO SCH ×4 (09:44→21:21)
[2022-06-04] MEDS: buPROPion XL 300 MG TABCR PO SCH (09:44)
--- NOTE | 2022-06-04 12:56 | XRay Report ---
KUB CLINICAL HISTORY: f/u ileus COMPARISON STUDY: CT of the abdomen and pelvis June 01, 2022. KUB June 03, 2022. FINDINGS: Postoperative findings within the spine are incidentally noted. A loop of dilated small bow el within the left mid abdomen measures up to 5 cm in caliber. There is no significant colonic dilata tion. Small bowel dilatation has slightly increased. IMPRESSION: Slight increase in small bowel dilatation. This may reflect a mild ileus. Although withi n the differential, a bowel obstruction is considered less likely. ACT 112: Negative or not required by law. Electronically signed by: Diego Jim M.D. 06/04/2022 12:55 PM
[2022-06-04] MEDS: FAMOTIDINE 20 MG in SYRINGE 3 ML IV SCH (12:57)
[2022-06-04] MEDS: REMDESIVIR 100 MG in SODIUM CHLORIDE 0.9% 230 ML IV SCH (13:01)
--- NOTE | 2022-06-04 15:48 | Gastrointestinal Consultation ---
Date of Consultation June 04, 2022 Assessment & Plan (1) Esophagitis: At this time all I know is that he has esophagitis and an ileus by KUB. I don't plan EGD with active COVID unless it becomes an emergency. He is on carafate and protonix so there isn't much more to offer any way. The ileus doesn't seem to be causing him issues as he is having bowel movements, tolerating po and not vomiting. I will follow History of Present Illness Reason for Consultation: esophagitis Attending Physician: Ralph Johnson MD History of Present Illness 76 year old man with dyspnea and COVID who has esophagitis on CT scan. Apparently his spouse requested GI consult. History from patient is confusing. He does say that when he lays down he will sometimes feel stuff come into his throat and he coughs. He denies heartburn. He tells me he can eat well. He has normal bowel movements. KUB reveals an ileus but he is having BMs and not vomiting. He is currently on protonix and carafate. He has not seen a GI doctor that he is aware of and gets [facility] Allergies Allergy/AdvReac Type Severity Reaction Status Date / Time ibuprofen Allergy Intermediate HIVES Verified 06/01/22 16:39 Home Medications Medication Instructions Recorded Confirmed Type albuterol sulfate 90 mcg/actuation 2 puff inhalation Q4 PRN Shortness 03/12/22 06/01/22 History aerosol inhaler Of Breath Or Wheezing apixaban 5 mg tablet (Eliquis) 5 mg PO BID 03/12/22 06/01/22 History atorvastatin 10 mg tablet 10 mg PO DAILY 03/12/22 06/01/22 History budesonide-formoterol HFA 160 2 puff inhalation BID PRN 03/12/22 06/01/22 History mcg-4.5 mcg/actuation aerosol Shortness Of Breath Or Wheezing inhaler bupropion HCl 300 mg 24 hr tablet, 300 mg PO QAM 03/12/22 06/01/22 History extended release buspirone 5 mg tablet 7.5 mg PO TID 03/12/22 06/01/22 History carbidopa 25 mg-levodopa 100 mg 1 tab PO .DAILY @ NOON 03/12/22 06/01/22 History tablet carbidopa 25 mg-levodopa 100 mg 2 tab PO AMHS 03/12/22 06/01/22 History tablet cyclobenzaprine 10 mg tablet 10 mg PO BID 03/12/22 06/01/22 History finasteride 5 mg tablet 5 mg PO DAILY 03/12/22 06/01/22 History furosemide 20 mg tablet 20 mg PO DAILY 03/12/22 06/01/22 History hydroxyurea 500 mg capsule 1,000 mg PO DIRECTED 03/12/22 06/01/22 History lisinopril 5 mg tablet 5 mg PO DAILY 03/12/22 06/01/22 History memantine 5 mg tablet 5 mg PO DAILY 03/12/22 06/01/22 History metoprolol tartrate 25 mg tablet 12.5 mg PO BID 03/12/22 06/01/22 History montelukast 10 mg tablet 10 mg PO DAILY 03/12/22 06/01/22 History pantoprazole 40 mg tablet,delayed 40 mg PO DAILY 03/12/22 06/01/22 History release prazosin 5 mg capsule 5 mg PO HS 03/12/22 06/01/22 History pregabalin 150 mg capsule 150 mg PO BID 03/12/22 06/01/22 History sertraline 100 mg tablet 100 mg PO BID 03/12/22 06/01/22 History tiotropium bromide 18 mcg capsule 1 cap inhalation DAILY PRN 03/12/22 06/01/22 History with inhalation device (Spiriva Shortness Of Breath Or Wheezing with HandiHaler) trazodone 150 mg tablet 150 mg PO HS 03/12/22 06/01/22 History cephalexin 500 mg capsule 500 mg PO BID 06/01/22 06/01/22 History Patient History Medical History Asthma BPH (benign prostatic hyperplasia) Bronchiolitis due to influenza virus Chronic bronchitis Closed fracture dislocation of ankle DDD (degenerative disc disease) Diverticulitis HTN (hypertension) Hypoxemia Intractable back pain MRSA (methicillin resistant Staphylococcus aureus) negative nasal swab on 06/24/15 and 10/05/18 Obesity Open wound of ankle with complication VIK on CPAP Noncompliant Prolonged QT interval VRr=032 EKG 05/25/19 PTSD (post-traumatic stress disorder) do not wake patient by touching, wake patient by saying name Surgical History History of back surgery back surgery x3 at [facility] History of partial colectomy S/P hernia repair Status post ORIF of fracture of ankle 05/26/[address] Farhan DIEZ with sedation. Family History Other Family history non-contributory Social History Smoking Status: Former smoker Tobacco Type: Smokeless Tobacco (Dip or Chew) Cigarettes Per Day: Uncertain.; Second Hand Exposure: No; Do You Dip or Chew Tobacco: No; Tobacco Cessation Education Requested by Patient: No Hx Alcohol Use: Yes Alcohol type: beer Hx Substance Use: No Preferred Language: [place]an Communication Ability: Effective Communication Ability Comment: Pt is currently confused Relay Repairer Required: No Beliefs That Will Affect Care: None marital status: Current Living Situation: Spouse Current Living Situation Comment: with wifr and grandson Other Information That Helps Us Care for You: No Feels Safe at Home: Yes Safety Concerns: Feels Safe At This Time Assistive Devices: Walker and Wheelchair Assistive Devices Comment: bilateral lower ex prosthetics, uses a mechanical lift at home Review of Systems Review of Systems: All systems reviewed & are unremarkable except as noted in HPI & below Physical Exam Constitutional: + ill appearing and + obese Neck: trachea midline, no thyromegaly Respiratory: + audible wheezes cureently getting breathing treatment Cardiovascular: RRR, no murmur, no edema Gastrointestinal (Abdomen): Inspection/Auscultation: + abdomen distended Percussion/Palpation: abdomen nontender masses not appreciable due to size Results & Data Vital Signs (Past 12 Hours) Vital Signs Temp Pulse Resp BP Pulse Ox O2 Del Method O2 Flow Rate 06/04/22 15:29 73 15 97 Nasal Cannula 2 06/04/22 14:27 36.4 C L 71 18 121/76 98 Nasal Cannula 2 06/04/22 09:10 Nasal Cannula 2 06/04/22 11:19 71 16 94 Nasal Cannula 2 06/04/22 09:31 68 18 126/77 94 Nasal Cannula 2 06/04/22 07:25 36.4 C L 56 L 16 126/76 98 Nebulizer 06/04/22 07:11 62 12 93 Nasal Cannula 2 Laboratory Results Laboratory Results WBC 3.98 K/ul (4.8-10.8) L 06/04/22 05:43 RBC 3.00 M/uL (4.70-6.10) L 06/04/22 05:43 Hgb 8.7 g/dl (14.0-18.0) L 06/04/22 05:43 Hct 28.7 % (42.0-52.0) L 06/04/22 05:43 MCV 95.7 fL (80.0-100.0) 06/04/22 05:43 MCH 29.0 pg (25.0-34.0) 06/04/22 05:43 MCHC 30.3 g/dL (32.0-36.0) L 06/04/22 05:43 RDW Std Deviation 57.9 fL (36.4-46.3) H 06/04/22 05:43 RDW Coeff of Hector 16.5 % (11.5-14.5) H 06/04/22 05:43 Plt Count 205 K/uL (130-400) 06/04/22 05:43 MPV 10.9 fL (9.4-12.4) 06/04/22 05:43 Immature Gran % (Auto) 0.7 % 06/02/22 05:59 Neut % (Auto) 91.1 % 06/02/22 05:59 Lymph % (Auto) 6.5 % 06/02/22 05:59 Amelia % (Auto) 1.7 % 06/02/22 05:59 Eos % (Auto) 0.0 % 06/02/22 05:59 Baso % (Auto) 0.0 % 06/02/22 05:59 Neut # (Auto) 2.67 K/uL (1.40-6.50) 06/02/22 05:59 Lymph # (Auto) 0.19 K/uL (1.2-3.4) L 06/02/22 05:59 Amelia # (Auto) 0.05 K/uL (0.11-0.59) L 06/02/22 05:59 Eos # (Auto) 0.00 K/uL (0-0.50) 06/02/22 05:59 Baso # (Auto) 0.00 K/uL (0-0.2) 06/02/22 05:59 Immature Gran # (Auto) 0.02 K/uL (0.01-0.20) 06/02/22 05:59 Hypersegmented Neuts 1+ 06/02/22 05:59 PT 14.4 Seconds (9.0-12.0) H 06/01/22 14:27 INR 1.4 (0.9-1.1) H 06/01/22 14:27 APTT 41.1 Seconds (21.0-31.0) H 06/01/22 14:27 PTT Ratio 1.5 06/01/22 14:27 ABG pH 7.43 (7.35-7.45) 06/03/22 13:07 ABG pCO2 46 mmHg (35-46) 06/03/22 13:07 ABG pO2 87 mmHg (80-95) 06/03/22 13:07 ABG HCO3 31 mmol/L (19-24) H 06/03/22 13:07 ABG O2 Saturation 98.9 % (90-95) H 06/03/22 13:07 ABG Base Excess 5.3 mEq/L (-9-1.8) H 06/03/22 13:07 John Test POS (Pos) 06/03/22 13:07 VBG pH 7.35 (7.36-7.41) L 06/01/22 14:27 VBG pCO2 56 mmHg (38-50) H 06/01/22 14:27 VBG pO2 34 mmHg 06/01/22 14:27 VBG HCO3 31 mmol/L 06/01/22 14:27 VBG O2 Saturation < 60.0 % 06/01/22 14:27 VBG Base Excess 3.8 mEq/L 06/01/22 14:27 Oxygen Given 2L O2 06/03/22 13:07 Sodium 142 mmol/L (136-145) 06/04/22 05:43 Potassium 3.3 mmol/L (3.5-5.1) L 06/04/22 05:43 Chloride 106 mmol/L (98-107) 06/04/22 05:43 Carbon Dioxide 31 mmol/L (21-32) 06/04/22 05:43 Anion Gap 5 (3-11) 06/04/22 05:43 BUN 18 mg/dl (6-23) 06/04/22 05:43 Creatinine 0.78 mg/dl (0.6-1.4) 06/04/22 05:43 Est Cr Clr Drug Dosing 86.0 ml/min 06/04/22 05:43 Est GFR ( Amer) 103.1 ml/min 06/04/22 05:43 Est GFR (Non-Af Amer) 88.9 ml/min 06/04/22 05:43 BUN/Creatinine Ratio 23.1 (10-20) H 06/04/22 05:43 Glucose 97 mg/dl (70-99(Fasting)) 06/04/22 05:43 Calcium 8.0 mg/dl (8.6-10.3) L 06/04/22 05:43 Magnesium 1.8 mg/dl (1.7-2.4) 06/04/22 05:43 Iron Cancelled 06/02/22 13:35 TIBC Cancelled 06/02/22 13:35 Unsaturated IBC Cancelled 06/02/22 13:35 Transferrin % Sat Cancelled 06/02/22 13:35 Ferritin Cancelled 06/02/22 13:35 Total Bilirubin 0.3 mg/dl (0.2-1.0) 06/04/22 05:43 Direct Bilirubin 0.3 mg/dl (0-0.2) H 06/01/22 14:27 AST 8 U/L (13-39) L 06/04/22 05:43 ALT < 3 U/L (7-52) L 06/04/22 05:43 Alkaline Phosphatase 53 U/L (34-104) 06/04/22 05:43 Troponin I High Sens 6.6 pg/ml (0-20) 06/01/22 14:27 C-Reactive Protein Cancelled 06/01/22 17:41 B-Natriuretic Peptide 195 pg/ml (0-100) H 06/01/22 14:27 Total Protein 5.8 gm/dl (6.0-8.3) L 06/04/22 05:43 Albumin 3.2 gm/dl (3.4-5.0) L 06/04/22 05:43 Globulin 2.6 gm/dl (2.5-4.0) 06/04/22 05:43 Albumin/Globulin Ratio 1.2 (0.9-2) 06/04/22 05:43 Lipase 9 U/L (11-82) L 06/01/22 14:27 Vitamin B12 492 pg/ml (180-914) 06/01/22 17:58 Folate 11.69 ng/ml (>5.38) 06/01/22 17:58 Procalcitonin < 0.05 ng/ml (0-0.5) 06/01/22 17:58 Urine Color Dark Yellow 06/02/22 02:57 Urine Appearance Clear (Clear) 06/02/22 02:57 Urine pH 6.0 (4.5-7.5) 06/02/22 02:57 Ur Specific [place] 1.041 (1.000-1.030) H 06/02/22 02:57 Urine Protein Trace (Negative) H 06/02/22 02:57 Urine Glucose (UA) Negative (Negative) 06/02/22 02:57 Urine Ketones Trace (Negative) H 06/02/22 02:57 Urine Blood Negative (Negative) 06/02/22 02:57 Urine Nitrite Positive (Negative) A 06/02/22 02:57 Urine Bilirubin 1+ (Negative) H 06/02/22 02:57 Urine Urobilinogen Negative (Negative) 06/02/22 02:57 Ur Leukocyte Esterase Trace (Negative) H 06/02/22 02:57 Urine WBC (Auto) 0 /hpf (0-5) 06/02/22 02:57 Urine RBC (Auto) 0-4 /hpf (0-4) 06/02/22 02:57 U Hyaline Cast (Auto) 1-5 /lpf (0-5) 06/02/22 02:57 U Epithel Cells (Auto) 5-10 /lpf (0-5) H 06/02/22 02:57 Urine Bacteria (Auto) Negative (Negative) 06/02/22 02:57 SARS-CoV-2 (PCR) POSITIVE (Negative) A* 06/01/22 15:23 Influenza Type A (PCR) Negative (Neg) 06/01/22 15:23 Influenza Type B (PCR) Negative (Neg) 06/01/22 15:23 RSV (RT-PCR) Negative (Neg) 06/01/22 15:23 Impressions Abdomen/Pelvis CT 06/01/22 14:[address] WITH IV CONTRAST CT DOSE: 1398.50 mGy.cm HISTORY: Acute left lower quadrant abdominal pain llq pain TECHNIQUE: Multiaxial CT images of the abdomen and pelvis were performed following the IV administration of 85 cc of Optiray, A dose lowering technique was utilized adhering to the principles of ALARA. COMPARISON STUDY: CTA runoff 06/27/2019 FINDINGS: Moderate cardiomegaly with moderate coronary artery calcifications. Trace pericardial effusion. Mild bibasilar atelectasis. No pneumatosis or pneumoperitoneum. Spleen is enlarged measuring up to 15.9 cm in length. Mild to moderate pancreatic atrophy. Unremarkable left adrenal gland. 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 Unremarkable gallbladder. Liver is within normal limits. Patent portal vein. Mild cortical thinning of the kidneys with nonspecific bilateral perinephric stranding. 4 mm nonobstructing calculus of the interpolar right kidney. No ureteral calculi or hydronephrosis. There is mild circumferential urinary bladder wall thickening. Prostate is upper limits of normal in size. Atherosclerosis of the aorta without aneurysm. No lymphadenopathy. Mild wall thickening of the fluid-filled distal esophagus with trace adjacent inflammatory stranding. Postoperative changes suggestive of partial sigmoid colon resection with colocolonic anastomosis. Soft tissue thickening within the lower lumbar prevertebral tissues is likely on a postoperative basis with adjacent surgical clips. Normal appendix. Unremarkable soft tissues. No acute fracture. Degenerative changes of the spine, pelvis and hips. Discectomy with posterior interbody adelso and screw fusion at L5-S1. The hardware appears intact. IMPRESSION: 1. Fluid-filled distal esophagus with mild wall thickening and adjacent inflammatory stranding. Findings are suspicious for esophagitis. 2. No bowel obstruction or bowel wall thickening. 3. Partial sigmoid colon resection with colocolonic anastomosis. 4. Moderate splenomegaly. 5. Right nephrolithiasis. ACT 112: Negative or not required by law. The above report was generated using voice recognition software. It may contain grammatical, syntax or spelling errors. Electronically signed by: Natanael Valladares M.D. 06/01/2022 4:06 PM Chest X-Ray 06/03/22 08:46 XR chest 1V portable CLINICAL HISTORY: f/u, eval pulm edema COMPARISON STUDY: Chest radiograph June 01, 2022. FINDINGS: There is no pneumothorax or pleural effusion. Patient is rotated. Cardiomegaly is unchanged. Mediastinal contours are stable. There is no consolidation to suggest pneumonia. There is no evidence for pulmonary edema. Linear right infrahilar opacity favors atelectasis. IMPRESSION: No acute cardiopulmonary findings. Cardiomegaly. No evidence for pulmonary edema. ACT 112: Negative or not required by law. Electronically signed by: Diego Jim M.D. 06/03/2022 10:59 AM KUB X-Ray 06/04/22 06:00 KUB CLINICAL HISTORY: f/u ileus COMPARISON STUDY: CT of the abdomen and pelvis June 01, 2022. KUB June 03, 2022. FINDINGS: Postoperative findings within the spine are incidentally noted. A loop of dilated small bowel within the left mid abdomen measures up to 5 cm in caliber. There is no significant colonic dilatation. Small bowel dilatation has slightly increased. IMPRESSION: Slight increase in small bowel dilatation. This may reflect a mild ileus. Although within the differential, a bowel obstruction is considered less likely. ACT 112: Negative or not required by law. Electronically signed by: Diego Jim M.D. 06/04/2022 12:55 PM
[2022-06-04] MEDS: DOCUSATE SODIUM/SENNA 50/8.6MG TAB PO SCH (16:23)
[2022-06-04] MEDS: traZODone HCL 50 MG TAB PO SCH (21:13)
[2022-06-04] MEDS: POTASSIUM CHLORIDE CRTAB 20 MEQ TABCR PO SCH (21:14)
[2022-06-04] MEDS: PRAZOSIN HCL 1 MG CAP PO SCH (21:18)
[2022-06-05] MEDS: ALBUT/IPRATROP 3MG/0.5MG NEB 3 ML VIAL NEB SCH ×6 (02:08→22:32)
[2022-06-05 06:38] LABS: Eosinophils # (auto) 0.01 K/uL (0-0.50); Eosinophils % (auto) 0.3 %; Hematocrit (blood only) 27.1 % (42.0-52.0); Hemoglobin 8.2 g/dl (14.0-18.0); Immature Granulocytes # (auto) 0.03 K/uL (0.01-0.20); Lymphocytes # (auto) 0.47 K/uL (1.2-3.4); Lymphocytes % (auto) 16.4 %; Mean Corpuscular Hemoglobin 29.2 pg (25.0-34.0); Mean Corpuscular Hgb Conc 30.3 g/dL (32.0-36.0); Mean Corpuscular Volume 96.4 fL (80.0-100.0); Mean Platelet Volume 10.8 fL (9.4-12.4); Monocytes # (auto) 0.03 K/uL (0.11-0.59); Neutrophils # (auto) 2.33 K/uL (1.40-6.50); Neutrophils % (auto) 81.3 %; Platelet Count 172 K/uL (130-400); RDW Coefficient of Variation 16.5 % (11.5-14.5); RDW Standard Deviation 58.7 fL (36.4-46.3); Red Blood Count 2.81 M/uL (4.70-6.10); White Blood Count 2.87 K/ul (4.8-10.8)
[2022-06-05 07:02] LABS: Anion Gap 4 (3-11); BUN Creatinine Ratio 17.8 (10-20); Blood Urea Nitrogen 13 mg/dl (6-23); Calcium 7.9 mg/dl (8.6-10.3); Carbon Dioxide 32 mmol/L (21-32); Chloride 107 mmol/L (98-107); Creatinine Clr Calc Pharmacy 90.5 ml/min; Est GFR (African American) 105.2 ml/min; Est GFR (Non-African American) 90.7 ml/min; Glucose 100 mg/dl (70-99(Fasting)); Potassium 3.5 mmol/L (3.5-5.1); Sodium 143 mmol/L (136-145)
[2022-06-05 07:11] LABS: Alanine Aminotransferase < 3 U/L (7-52); Albumin Globulin Ratio 1.4 (0.9-2); Alkaline Phosphatase 50 U/L (34-104); Aspartate Aminotransferase 7 U/L (13-39); Bilirubin,Total 0.4 mg/dl (0.2-1.0); Globulin 2.1 gm/dl (2.5-4.0); Magnesium 1.8 mg/dl (1.7-2.4); Phosphorus 2.4 mg/dl (2.5-4.9); Total Protein 5.1 gm/dl (6.0-8.3)
[2022-06-05] MEDS: BUDESONIDE 0.5 MG/2 ML VIAL (PULMICORT) NEB SCH ×2 (07:30→20:21)
[2022-06-05] MEDS: SODIUM CHLOR 7% 4 ML NEB NEB SCH ×2 (07:31→20:21)
--- NOTE | 2022-06-05 07:46 | XRay Report ---
KUB CLINICAL HISTORY: f/u ileus COMPARISON STUDY: CT of the abdomen and pelvis June 01, 2022. KUB June 04, 2022. FINDINGS: Postoperative findings within the spine are incidentally noted. Mild small bowel dilatation has decreased since prior examination. There is no evidence for a bowel obstruction. There is scatte red colonic gas. IMPRESSION: Interval decrease in small bowel dilatation. The findings favor an improving ileus. No e vidence for a bowel obstruction. ACT 112: Negative or not required by law. Electronically signed by: Diego Jim M.D. 06/05/2022 7:45 AM
--- NOTE | 2022-06-05 07:56 | Hospitalist Progress Note ---
Date of Service June 05, 2022 Assessment & Plan (1) Acute respiratory failure with hypoxia: Plan: No significant wheezing on exam to suggest COPD exacerbation and suspect more due to COVID-19. reports patient feeling ill for about the past 3 weeks. recent admit earlier this year for Influenza, reviewed tx at that time and discussed w/ pulm (can official consult if needed/worsened) Started hypertonic saline BID, vibration vest, budesonide BID -- continue Did tolerate BiPAP last evening again, CO2 on chemistry improved and energy/mentation improved and reports improvement in breathing. 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 isolation precautions See below for tx epigastric discomfort/ileus/gastritis/anemia (2) COVID-19: Plan: Unclear duration of symptoms but given acute lymphopenia suspect he is in acute phases -- does report he has been feeling ill for about 3 weeks as above. Vaccinated but never + for COVID in the past. Continue decadron IV, remdesivir, pulmonary toilet as above Can consult pulm if needed/worsening Maintain isolation precautions, O2 as needed to maintain sats --> placing Incruse inhaler on hold, prior agitation of bronchiolitis symptoms w/ flu this year. will schedule brovana w/ his budesonide/hypertonic saline nebs ON ROOM AIR CURRENTLY (3) Anemia: Plan: appears hgb lower than baseline levels, no significant IVF on admit but did get several mag of IV magnesium Checked iron studies/B12/folate for completeness, fecal occult next bowel movement and continue PPI BID as above for esophagitis Hgb continued to drop, no significant bleeding. Also WBC 2.8k, plt 172. No blood in urine observed. BM 3 days ago, small BM this AM w/o obvious blood. Fecal occult pending when able to collect. Iron studies w/o significant SARAH, B12/folate def Discussed blood count drop w/ hematology, rec holding hydroxyurea (doesn't take on weekends) and monitoring blood counts, make sure on DVT proph (on eliquis 5mg BID) Per Dr Joy, once blood counts stablized, nevin after a week or so, may want to consider resuming, especially if platelets are starting to climb anywhere above 600,000 --> patient does have many listed side effects from such. Discussed w/ patient/ and [facility] regarding continuing this medication/dosing adjustments given myelosuppressive side effects Monitor CBC in AM (4) Ileus: Plan: checked due to nausea/abd pain prior --> evidence for possible ileus. hx bowel surgery/anastomosis noted backed to full liquid 06/03-06/04 and tolerating +SMALL BM this morning (LARGE BM reported AM 06/02), +BS on exam, no refluex reported Advanced to low fiber diet, encouraged ambulation (PT/OT evals ordered and pending) Bowel regimen Monitor for any worsening -- no vomiting. reflux sx controlled w/ ordered meds for esophagitis w/ PPI BID, carafate and pepcid daily (5) Esophagitis: Plan: Main reason he came to ER ?secondary to Keflex Gastritis/esophagitis on CTAP, now w/ possible ileus Switched pantoprazole PO to IV and increased to BID on admission, added dose pepcid x 1 06/03 and repeat issues w/ pain after OJ this morning and scheduled daily Added carafate, continue GI consulted -- continue PPI BID, carafate. Can have outpt f/u GI (has had c- scopes, unclear if ever had EGD) (6) UTI (urinary tract infection): Plan: Diagnosed as outpatient, however [facility] and appears culture cancelled due to discoloration from Azo Repeat Ua/cx NEGATIVE, but had been on Keflex. Given Rocephin IV x 3 days, discontinued further -- denied any burning w/ urination Monitor for any fevers/further symptoms Appears also has BPH, on finasteride at baseline (7) Hypomagnesemia: Plan: Magnesium level 1.2 on admit, IV replacement ordered Mag level reviewed on AM labs, 1.8 and 1gm IV ordered --> keep closer to 2 w/ hx paroxysmal afib, K~4 (scheduled BID for today, increase if needed) (8) Hypokalemia: Plan: K 3.0 on admission, given 20meq. 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 Continue lisinopril for BP control Monitor BMP in AM/keep K closer to 4 w/ hx pafib as below (9) Paroxysmal atrial fibrillation: Plan: Currently in NSR Anticoagulation with Eliquis No palpitations/lightheaded reported --> EKG for any symptoms Keep Mag ~2, K~4 as above (10) VIK on CPAP: Plan: BiPAP HS as able to tolerate -- refused x 2 evening on admit, discussed w/ /patient and he was agreeable last evening BIPAP HS as tolerated -- see about getting different equipment/headgear at d/c (11) PTSD (post-traumatic stress disorder): Plan: Do not wake patient by touching, 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) Continue sertraline, prazosin, bupropion Mood stable at present (12) Nephrolithiasis: Plan: noted 3mm nonobstructing calculi R jessi, mild circumferential urinary bladder wall thickening prior following w/ urology, BPH continue finasteride, no flank pain reported at present, abx for UTI as above 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 Will repeat CXR in AM/discussed holding additional dose diuretic until advancing diet/moving bowels further as now advancing diet and on room air (wheezing noted, but lung exam improved from day prior) Admission and Anticipated Discharge Date Admission Date: June 01, 2022 Supervising Physician Co-Signing Physician Notes The patient was not seen by me. The chart was reviewed. Case discussed with JOHAN Ingram. Agree with assessment and plan Subjective eval this morning, sleeping in bed upon entry, easily awoken. Titrated to room air. Reports breathing stable but having some tightness. Wheezing improved compared to prior. Less GI issues, small BM this morning, +BS on exam. Discussed getting him some cake for his birthday, diet advanced. Will monitor CXR in AM/additional lasix if needed. Also discussed holding further hydroxyurea moving forward given blood counts/no active bleeding reports. fecal occult ordered but not obtained. Can reach out to heme/onc if needed. PT/OT consultations placed yesterday -- was gotten up out of bed by nursing this morning. Did alright, little weak/balance issues but waiting official therapy evals. Called to update -- she notes [facility]. This will need f/u outpatient as I do believe he pike have some side effects from this medication. Will hopefully have response in blood counts with holding (discussed w/ hematology health promotion specialist this weekend) and keep on DVT proph (which he is on w/ eliquis BID) and plt stable/not elevated. She is inquiring about time in hospital to get home -- will see how he does w/ therapy but discussed he may possibly need some rehab but if going to somewhere like [facility] could consider in next 24-48 hours pending patient status overnight into tomorrow/therapy evals. 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, stumps look good (prosthesis on chair in room) Psych: alert to person/place, not time, pleasant and cooperative with care (memory issues at baseline per family) Results & Data Results & Data Vital Signs (Past 12 Hours) Vital Signs Pulse Pulse Resp Pulse Ox O2 Del Method FiO2 06/05/22 07:31 57 L 14 97 Room Air 21 06/05/22 02:08 65 24 96 Room Air, BiPAP 06/05/22 02:08 65 24 96 06/04/22 23:15 70 23 90 BiPAP 06/04/22 23:15 70 23 90 06/04/22 20:00 70 18 95 Room Air Laboratory Results 06/05/22 06/05/22 06/05/22 Range/Units 06:02 06:02 06:02 WBC 2.87 L (4.8-10.8) K/ul RBC 2.81 L (4.70-6.10) M/uL Hgb 8.2 L (14.0-18.0) g/dl Hct 27.1 L (42.0-52.0) % MCV 96.4 (80.0-100.0) fL MCH 29.2 (25.0-34.0) pg MCHC 30.3 L (32.0-36.0) g/dL RDW Std Deviation 58.7 H (36.4-46.3) fL RDW Coeff of Hector 16.5 H (11.5-14.5) % Plt Count 172 (130-400) K/uL MPV 10.8 (9.4-12.4) fL Immature Gran % (Auto) 1.0 % Neut % (Auto) 81.3 % Lymph % (Auto) 16.4 % Morton % (Auto) 1.0 % Eos % (Auto) 0.3 % Baso % (Auto) 0.0 % Neut # (Auto) 2.33 (1.40-6.50) K/uL Lymph # (Auto) 0.47 L (1.2-3.4) K/uL Morton # (Auto) 0.03 L (0.11-0.59) K/uL Eos # (Auto) 0.01 (0-0.50) K/uL Baso # (Auto) 0.00 (0-0.2) K/uL Immature Gran # (Auto) 0.03 (0.01-0.20) K/uL Sodium 143 (136-145) mmol/L Potassium 3.5 (3.5-5.1) mmol/L Chloride 107 (98-107) mmol/L Carbon Dioxide 32 (21-32) mmol/L Anion Gap 4 (3-11) BUN 13 (6-23) mg/dl Creatinine 0.73 (0.6-1.4) mg/dl Est Cr Clr Drug Dosing 90.5 ml/min Est GFR ( Amer) 105.2 ml/min Est GFR (Non-Af Amer) 90.7 ml/min BUN/Creatinine Ratio 17.8 (10-20) Glucose 100 H (70-99(Fasting)) mg/dl Calcium 7.9 L (8.6-10.3) mg/dl Phosphorus 2.4 L (2.5-4.9) mg/dl Magnesium 1.8 (1.7-2.4) mg/dl Total Bilirubin 0.4 (0.2-1.0) mg/dl AST 7 L (13-39) U/L ALT < 3 L (7-52) U/L Alkaline Phosphatase 50 (34-104) U/L Total Protein 5.1 L (6.0-8.3) gm/dl Albumin 3.0 L (3.4-5.0) gm/dl Globulin 2.1 L (2.5-4.0) gm/dl Albumin/Globulin Ratio 1.4 (0.9-2) 25-OH Vitamin D Total < 7.0 L (30-100) ng/ml PG Care Time/CCT Total # of Minutes Spent Total Time Spent with Patient: Total time spent is greater than 50% in coordination of care (as documented) at patient's floor/unit and/or counseling patient: Coding Level of Care Code 46826 SUB INP/OBS CARE 3/50MIN Diagnoses Acute respiratory failure with hypoxia J96.01 COVID-19 U07.1 Anemia D64.9 Ileus K56.7 Esophagitis K20.90 UTI (urinary tract infection) N39.0 Hypomagnesemia E83.42 Hypokalemia E87.6 Paroxysmal atrial fibrillation I48.0 VIK on CPAP G47.33; Z99.89 PTSD (post-traumatic stress disorder) F43.10 Nephrolithiasis N20.0 Vitamin D deficiency E55.9
[2022-06-05] MEDS: dexAMETHasone 6 MG in SYRINGE 0 ML IV SCH (08:47)
[2022-06-05] MEDS: UMECLIDINIUM BROMIDE 62.5MCG/BLISTER 7 PUFFS/INHALER INH SCH (08:47)
[2022-06-05] MEDS: FAMOTIDINE 20 MG in SYRINGE 3 ML IV SCH (08:51)
[2022-06-05] MEDS: PANTOprazole 40 MG in SYRINGE 0 ML IV SCH ×2 (08:54→21:55)
[2022-06-05] MEDS: SUCRALFATE 1 GM/10 ML UDC PO SCH ×4 (08:59→21:57)
[2022-06-05] MEDS: SERTRALINE HCL 100 MG TABLET PO SCH ×2 (09:00→21:53)
[2022-06-05] MEDS: MEMANTINE HCL 5 MG TAB PO SCH (09:00)
[2022-06-05] MEDS: ATORVASTATIN 10 MG TAB PO SCH (09:00)
[2022-06-05] MEDS: CYCLOBENZAPRINE HCL 10 MG TAB PO SCH ×2 (09:00→21:51)
[2022-06-05] MEDS: FUROSEMIDE 20 MG TAB PO SCH (09:00)
[2022-06-05] MEDS: PREGABALIN 150 MG CAP PO SCH ×2 (09:00→22:11)
[2022-06-05] MEDS: buPROPion XL 300 MG TABCR PO SCH (09:00)
[2022-06-05] MEDS: guaiFENesin 600 MG TABCR PO SCH ×2 (09:00→21:53)
[2022-06-05] MEDS: busPIRone 7.5 MG TAB PO SCH ×3 (09:00→21:54)
[2022-06-05] MEDS: MONTELUKAST SODIUM 10 MG TABLET PO SCH (09:00)
[2022-06-05] MEDS: FINASTERIDE 5 MG TAB PO SCH (09:00)
[2022-06-05] MEDS: METOPROLOL TARTRATE 25 MG TAB PO SCH ×2 (09:01→22:01)
[2022-06-05] MEDS: CARBIDOPA/LEVODOPA 25/100MG TAB PO SCH ×3 (09:01→21:52)
[2022-06-05] MEDS: lisinopril 5 MG TAB PO SCH (09:01)
[2022-06-05] MEDS: POTASSIUM CHLORIDE CRTAB 20 MEQ TABCR PO SCH ×2 (09:01→21:52)
[2022-06-05] MEDS: APIXABAN 5 MG TABLET PO SCH ×2 (09:01→21:51)
[2022-06-05] MEDS: ERGOCALCIFEROL 50,000 UNITS 1250 MCG CAP PO SCH (09:10)
[2022-06-05] MEDS: DOCUSATE SODIUM/SENNA 50/8.6MG TAB PO SCH (09:10)
--- NOTE | 2022-06-05 09:20 | Gastroenterology Progress Note ---
Date of Service June 05, 2022 Assessment & Plan (1) Esophagitis: Plan: Doing well from GI standpoint. Will sign off. Please reconsult if needed Admission and Anticipated Discharge Date Admission Date: June 01, 2022 Subjective Feeling better. No vomiting. Passing gas but no BM yet but not eating. He tells me he has no reflux Results & Data Vital Signs (Past 12 Hours) Vital Signs Temp Pulse Pulse Resp BP Pulse Ox O2 Del Method 06/05/22 08:12 36.5 C 75 18 131/77 95 Room Air 06/05/22 07:31 57 L 14 97 Room Air 06/05/22 02:08 65 24 96 Room Air, BiPAP 06/05/22 02:08 65 24 96 06/04/22 23:15 70 23 90 BiPAP 06/04/22 23:15 70 23 90 FiO2 06/05/22 08:12 06/05/22 07:31 21 06/05/22 02:08 06/05/22 02:08 06/04/22 23:15 06/04/22 23:15
[2022-06-05] MEDS: REMDESIVIR 100 MG in SODIUM CHLORIDE 0.9% 230 ML IV SCH (12:23)
[2022-06-05] MEDS: FORMOTEROL 20 MCG/2 ML VIAL INH SCH (20:21)
[2022-06-05 21:01] LABS: Appearance Urine Clear (Clear); Bilirubin Urine Negative (Negative); Blood Urine Negative (Negative); Color Urine Yellow; Glucose Urine UA Negative (Negative); Ketones Urine Negative (Negative); Leukocyte Esterase Urine Negative (Negative); Nitrite Urine Negative (Negative); Protein Urine Negative (Negative); Specific Gravity Urine 1.015 (1.000-1.030); Urobilinogen Urine Negative (Negative); pH Urine 5.5 (4.5-7.5)
[2022-06-05] MEDS: PRAZOSIN HCL 1 MG CAP PO SCH (21:55)
[2022-06-05] MEDS: traZODone HCL 50 MG TAB PO SCH (22:12)
[2022-06-06] MEDS: ALBUT/IPRATROP 3MG/0.5MG NEB 3 ML VIAL NEB SCH ×3 (02:31→08:34)
--- NOTE | 2022-06-06 07:48 | XRay Report ---
XR chest 1V portable HISTORY: 77 years-old Male covid, f/u wheezing acute cough with wheezing COMPARISON: 06/03/2022 TECHNIQUE: AP view of the chest FINDINGS: Cardiomediastinal and hilar silhouettes are within normal limits. No pneumothorax, pleural effusion, airspace consolidation or pulmonary edema. Bones of the chest appear grossly intact with degenerative changes of the shoulders and spine. IMPRESSION: No acute process. ACT 112: Negative or not required by law. The above report was generated using voice recognition software. It may contain grammatical, syntax o r spelling errors. Electronically signed by: Natanael Valladares M.D. 06/06/2022 7:47 AM
[2022-06-06] MEDS: BUDESONIDE 0.5 MG/2 ML VIAL (PULMICORT) NEB SCH ×2 (08:33→19:33)
[2022-06-06] MEDS: FORMOTEROL 20 MCG/2 ML VIAL INH SCH ×2 (08:33→19:33)
[2022-06-06] MEDS: SODIUM CHLOR 7% 4 ML NEB NEB SCH (08:33)
[2022-06-06 08:47] LABS: Hematocrit (blood only) 28.9 % (42.0-52.0); Hemoglobin 8.9 g/dl (14.0-18.0); Mean Corpuscular Hemoglobin 29.7 pg (25.0-34.0); Mean Corpuscular Hgb Conc 30.8 g/dL (32.0-36.0); Mean Corpuscular Volume 96.3 fL (80.0-100.0); Mean Platelet Volume 10.8 fL (9.4-12.4); Platelet Count 162 K/uL (130-400); RDW Coefficient of Variation 16.2 % (11.5-14.5); White Blood Count 2.23 K/ul (4.8-10.8)
[2022-06-06] MEDS: SUCRALFATE 1 GM/10 ML UDC PO SCH ×2 (09:11→12:10)
[2022-06-06] MEDS: METOPROLOL TARTRATE 25 MG TAB PO SCH ×2 (09:12→20:41)
[2022-06-06] MEDS: APIXABAN 5 MG TABLET PO SCH ×2 (09:12→20:41)
[2022-06-06] MEDS: busPIRone 7.5 MG TAB PO SCH ×3 (09:13→20:40)
[2022-06-06] MEDS: guaiFENesin 600 MG TABCR PO SCH ×2 (09:13→20:40)
[2022-06-06] MEDS: SERTRALINE HCL 100 MG TABLET PO SCH ×2 (09:13→20:40)
[2022-06-06] MEDS: POTASSIUM CHLORIDE CRTAB 20 MEQ TABCR PO SCH (09:13)
[2022-06-06] MEDS: FUROSEMIDE 20 MG TAB PO SCH (09:14)
[2022-06-06] MEDS: FINASTERIDE 5 MG TAB PO SCH (09:14)
[2022-06-06] MEDS: CARBIDOPA/LEVODOPA 25/100MG TAB PO SCH ×3 (09:14→20:40)
[2022-06-06] MEDS: buPROPion XL 300 MG TABCR PO SCH (09:14)
[2022-06-06] MEDS: CYCLOBENZAPRINE HCL 10 MG TAB PO SCH ×2 (09:15→20:40)
[2022-06-06] MEDS: MEMANTINE HCL 5 MG TAB PO SCH (09:15)
[2022-06-06] MEDS: lisinopril 5 MG TAB PO SCH (09:15)
[2022-06-06] MEDS: MONTELUKAST SODIUM 10 MG TABLET PO SCH (09:16)
[2022-06-06] MEDS: DOCUSATE SODIUM/SENNA 50/8.6MG TAB PO SCH (09:16)
[2022-06-06] MEDS: ATORVASTATIN 10 MG TAB PO SCH (09:16)
[2022-06-06] MEDS: PANTOprazole 40 MG in SYRINGE 0 ML IV SCH ×2 (09:26→20:35)
[2022-06-06 09:27] LABS: Anion Gap 4 (3-11); BUN Creatinine Ratio 14.5 (10-20); Blood Urea Nitrogen 11 mg/dl (6-23); Calcium 8.1 mg/dl (8.6-10.3); Carbon Dioxide 33 mmol/L (21-32); Chloride 102 mmol/L (98-107); Creatinine Clr Calc Pharmacy 86.9 ml/min; Est GFR (African American) 103.4 ml/min; Est GFR (Non-African American) 89.2 ml/min; Glucose 75 mg/dl (70-99(Fasting)); Potassium 3.9 mmol/L (3.5-5.1); Sodium 139 mmol/L (136-145)
[2022-06-06] MEDS: FAMOTIDINE 20 MG in SYRINGE 3 ML IV SCH (09:28)
[2022-06-06] MEDS: PREGABALIN 150 MG CAP PO SCH ×2 (09:28→20:40)
[2022-06-06 09:30] LABS: Alanine Aminotransferase < 3 U/L (7-52); Albumin Globulin Ratio 1.4 (0.9-2); Albumin Level 3.3 gm/dl (3.4-5.0); Alkaline Phosphatase 60 U/L (34-104); Aspartate Aminotransferase 8 U/L (13-39); Bilirubin,Total 0.5 mg/dl (0.2-1.0); Globulin 2.3 gm/dl (2.5-4.0); Magnesium 1.6 mg/dl (1.7-2.4); Total Protein 5.6 gm/dl (6.0-8.3)
[2022-06-06] MEDS: dexAMETHasone 6 MG in SYRINGE 0 ML IV SCH (09:34)
[2022-06-06] MEDS: ALBUT/IPRATROP 3MG/0.5MG NEB 3 ML VIAL NEB PRN ×2 (11:18→22:22)
[2022-06-06] MEDS: REMDESIVIR 100 MG in SODIUM CHLORIDE 0.9% 230 ML IV SCH ×2 (12:10→12:15)
[2022-06-06] MEDS: MAGNESIUM OXIDE 400 MG TAB PO SCH (13:54)
--- NOTE | 2022-06-06 16:28 | Hospitalist Progress Note ---
Date of Service June 06, 2022 Assessment & Plan (1) Acute respiratory failure with hypoxia: Plan: + Covid Continue decadron, remdesivir, incentive spirometer, flutter valve, mucinex. isolation precautions Patient improving and respiratory discontinue the hypertonic saline, vibration vest and changed Duonebs to as needed. Asked CM to try and get the different headgear for his home CPAP/promote compliance Continue mucinex BID Titrated to room air this morning, use BiPAP HS will need 2 step prior to discharge as well as PFTs/NIOX testing in follow up -- deputy sheriff chief notified (2) COVID-19: Plan: Unclear duration of symptoms but given acute lymphopenia suspect he is in acute phases -- does report he has been feeling ill for about 3 weeks as above. Vaccinated but never + for COVID in the past. Continue decadron IV, remdesivir, pulmonary toilet as above Can consult pulm if needed/worsening Maintain isolation precautions, O2 as needed to maintain sats (3) Anemia: Plan: appears hgb lower than baseline levels, no significant IVF on admit but did get several mag of IV magnesium Checked iron studies/B12/folate for completeness, fecal occult next bowel movement and continue PPI BID as above for esophagitis Hgb improved today to 8.9 (8.2) Fecal occult pending when able to collect. Iron studies w/o significant SARAH, B12/folate def Discussed blood count drop w/ hematology, rec holding hydroxyurea (doesn't take on weekends) and monitoring blood counts, make sure on DVT proph (on eliquis 5mg BID) Per Dr Joy, once blood counts stablized, nevin after a week or so, may want to consider resuming, especially if platelets are starting to climb anywhere above 600,000 - patient does have many listed side effects from such. Discussed w/ patient/ and [facility] regarding continuing this medication/dosing adjustments given myelosuppressive side effects Continue to monitor CBC in AM (4) Ileus: Plan: checked due to nausea/abd pain prior --> evidence for possible ileus. hx bowel surgery/anastomosis noted Advanced to low fiber diet, encouraged ambulation (PT/OT evals ordered and pending) Bowel regimen Monitor for any worsening -- no vomiting. reflux sx controlled w/ ordered meds for esophagitis w/ PPI BID, carafate and pepcid daily (5) Esophagitis: Plan: Main reason he came to ER ?secondary to Keflex Gastritis/esophagitis on CTAP, now w/ possible ileus Switched pantoprazole PO to IV and increased to BID on admission, added dose pepcid x 1 06/03 and repeat issues w/ pain after OJ this morning and scheduled daily GI evaluated and signed off. Exam today revealed oral candidiasis and started treatment with Diflucan and mycelex trouches (6) UTI (urinary tract infection): Plan: Diagnosed as outpatient, however [facility] and appears culture cancelled due to discoloration from Azo Repeat Ua/cx NEGATIVE, but had been on Keflex. Given Rocephin IV x 3 days, discontinued further -- denied any burning w/ urination Monitor for any fevers/further symptoms Appears also has BPH, on finasteride at baseline (7) Hypomagnesemia: Plan: Magnesium level 1.2 on admit, IV replacement ordered Mag level reviewed on AM labs, 1.6 added mag ox 400mg (8) Hypokalemia: Plan: K 3.0 on admission, given 20meq. Note on lasix 20mg daily at home and not on oral K supplementation (may need to be on something at d/c) K improved and normal today 3.9 (9) Paroxysmal atrial fibrillation: Plan: Currently in NSR Anticoagulation with Eliquis No palpitations/lightheaded reported --> EKG for any symptoms Keep Mag ~2, K~4 as above (10) VIK on CPAP: Plan: BiPAP HS as able to tolerate -- refused x 2 evening on admit, discussed w/ /patient and he was agreeable last evening BIPAP HS as tolerated -- see about getting different equipment/headgear at d/c (11) PTSD (post-traumatic stress disorder): Plan: Do not wake patient by touching, 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) Continue sertraline, prazosin, bupropion Mood stable at present (12) Nephrolithiasis: Plan: noted 3mm nonobstructing calculi R jessi, mild circumferential urinary bladder wall thickening prior following w/ urology, BPH continue finasteride, no flank pain reported at present, abx for UTI as above 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 reported If any issues w/ voiding, bladder scan as needed, consult urology if needed (13) Vitamin D deficiency: Plan: checked given prior old rib fractures/chronic kidney disease and prior lows and not on oral supplementation (also hx kidney stones reported) Vit D level reviewed and LOW <7 --> ergocalciferol scheduled weekly and will need rx at d/c and repeat levels w/ [facility]CP/[facility] (14) Oral candidiasis: Plan: treated with diflucan 200mg today , 100mg daily mycelex trouches Discussed need to rinse mouth after inhalers/nebulizer treatments Plan VTE Prophylaxis - Eliquis while inpatient PT/OT consults ordered and pending Updated by phone this evening. Will repeat CXR in AM/discussed holding additional dose diuretic until advancing diet/moving bowels further as now advancing diet and on room air (wheezing noted, but lung exam improved from day prior) Admission and Anticipated Discharge Date Admission Date: June 01, 2022 Subjective eval this morning, awake and sitting in recline was at bedside with patient. Patient complained of his mouth and throat burning and irritated. He denies any dysphagia or bolus arrest. Review of Systems Review of Systems: Patient denies any chest pain, SOB, dyspnea, nausea, vomiting, all other ROS negative unless stated + above. Physical Exam Constitutional: WD/WN, vitals as above ENMT: oropharynx, pink moist with white candidial lesions posterior oropharynx Neck: trachea midline, no thyromegaly Respiratory: Faint end expiratory wheeze Cardiovascular: Rate/Rhythm: regular rate and regular rhythm Heart Sounds: + murmur Extremities: no calf tenderness and no edema Gastrointestinal (Abdomen): normal bowel sounds, soft, nontender, no hepatosplenomegaly Psychiatric: A+Ox3, euthymic affect Results & Data Results & Data Vital Signs (Past 12 Hours) Vital Signs Temp Pulse Pulse Resp BP Pulse Ox O2 Del Method 06/06/22 14:03 36.4 C L 69 18 136/79 95 Room Air 06/06/22 11:18 69 18 96 Room Air 06/06/22 08:51 36.6 C 62 18 132/84 100 Room Air 06/06/22 08:34 68 15 100 Room Air FiO2 06/06/22 14:03 06/06/22 11:18 06/06/22 08:51 06/06/22 08:34 21 Laboratory Results Abnormal lab results 06/06/22 06/06/22 Range/Units 07:33 07:33 WBC 2.23 L (4.8-10.8) K/ul RBC 3.00 L (4.70-6.10) M/uL Hgb 8.9 L (14.0-18.0) g/dl Hct 28.9 L (42.0-52.0) % MCHC 30.8 L (32.0-36.0) g/dL RDW Std Deviation 58.0 H (36.4-46.3) fL RDW Coeff of Hector 16.2 H (11.5-14.5) % Carbon Dioxide 33 H (21-32) mmol/L Calcium 8.1 L (8.6-10.3) mg/dl Magnesium 1.6 L (1.7-2.4) mg/dl AST 8 L (13-39) U/L ALT < 3 L (7-52) U/L Total Protein 5.6 L (6.0-8.3) gm/dl Albumin 3.3 L (3.4-5.0) gm/dl Globulin 2.3 L (2.5-4.0) gm/dl PG Care Time/CCT Total # of Minutes Spent Total Time Spent with Patient: Total time spent is greater than 50% in coordination of care (as documented) at patient's floor/unit and/or counseling patient: Coding Level of Care Code 49554 SUB INP/OBS CARE 2/35MIN Diagnoses Acute respiratory failure with hypoxia J96.01 COVID-19 U07.1 Anemia D64.9 Ileus K56.7 Esophagitis K20.90 UTI (urinary tract infection) N39.0 Hypomagnesemia E83.42 Hypokalemia E87.6 Paroxysmal atrial fibrillation I48.0 VIK on CPAP G47.33; Z99.89 PTSD (post-traumatic stress disorder) F43.10 Nephrolithiasis N20.0 Vitamin D deficiency E55.9 Oral candidiasis B37.0
[2022-06-06] MEDS: FLUCONAZOLE 100 MG TAB PO SCH (17:22)
[2022-06-06] MEDS: CLOTRIMAZOLE 10 MG TROCHE BUCCAL SCH ×2 (18:25→22:46)
[2022-06-06] MEDS: traZODone HCL 50 MG TAB PO SCH (20:40)
[2022-06-06] MEDS: PRAZOSIN HCL 1 MG CAP PO SCH (20:40)
[2022-06-07] MEDS: CLOTRIMAZOLE 10 MG TROCHE BUCCAL SCH ×2 (06:26→12:36)
[2022-06-07] MEDS: FORMOTEROL 20 MCG/2 ML VIAL INH SCH ×2 (07:07→20:24)
[2022-06-07] MEDS: BUDESONIDE 0.5 MG/2 ML VIAL (PULMICORT) NEB SCH ×2 (07:07→20:24)
[2022-06-07] MEDS: SERTRALINE HCL 100 MG TABLET PO SCH ×2 (09:09→21:44)
[2022-06-07] MEDS: METOPROLOL TARTRATE 25 MG TAB PO SCH ×2 (09:10→21:44)
[2022-06-07] MEDS: dexAMETHasone 6 MG in SYRINGE 0 ML IV SCH (09:10)
[2022-06-07] MEDS: PANTOprazole 40 MG in SYRINGE 0 ML IV SCH (09:10)
[2022-06-07] MEDS: guaiFENesin 600 MG TABCR PO SCH ×2 (09:10→21:41)
[2022-06-07] MEDS: PREGABALIN 150 MG CAP PO SCH ×2 (09:10→21:34)
[2022-06-07] MEDS: busPIRone 7.5 MG TAB PO SCH ×3 (09:11→21:34)
[2022-06-07] MEDS: CYCLOBENZAPRINE HCL 10 MG TAB PO SCH ×2 (09:11→21:42)
[2022-06-07] MEDS: CARBIDOPA/LEVODOPA 25/100MG TAB PO SCH ×3 (09:11→21:42)
[2022-06-07] MEDS: APIXABAN 5 MG TABLET PO SCH ×2 (09:11→21:45)
[2022-06-07] MEDS: MONTELUKAST SODIUM 10 MG TABLET PO SCH (09:12)
[2022-06-07] MEDS: DOCUSATE SODIUM/SENNA 50/8.6MG TAB PO SCH (09:12)
[2022-06-07] MEDS: FINASTERIDE 5 MG TAB PO SCH (09:12)
[2022-06-07] MEDS: buPROPion XL 300 MG TABCR PO SCH (09:12)
[2022-06-07] MEDS: FUROSEMIDE 20 MG TAB PO SCH (09:12)
[2022-06-07] MEDS: ATORVASTATIN 10 MG TAB PO SCH (09:12)
[2022-06-07] MEDS: MEMANTINE HCL 5 MG TAB PO SCH (09:12)
[2022-06-07] MEDS: FAMOTIDINE 20 MG in SYRINGE 3 ML IV SCH (09:13)
[2022-06-07] MEDS: FLUCONAZOLE 100 MG TAB PO SCH (09:13)
[2022-06-07] MEDS: MAGNESIUM OXIDE 400 MG TAB PO SCH (09:13)
[2022-06-07] MEDS: lisinopril 5 MG TAB PO SCH (09:13)
[2022-06-07] MEDS: ALBUT/IPRATROP 3MG/0.5MG NEB 3 ML VIAL NEB PRN (11:44)
--- NOTE | 2022-06-07 11:57 | Hospitalist Progress Note ---
Date of Service June 07, 2022 Assessment & Plan (1) Acute respiratory failure with hypoxia: Plan: + Covid Continue decadron, incentive spirometer, flutter valve, mucinex. isolation precautions Finished Remdisivir Patient improving and respiratory discontinue the hypertonic saline, vibration vest and changed Duonebs to as needed. Asked CM to try and get the different headgear for his home CPAP/promote compliance Continue mucinex BID RA - 93%, use BiPAP HS will need 2 step prior to discharge as well as PFTs/NIOX testing in follow up - [facility] (2) COVID-19: Plan: Unclear duration of symptoms but given acute lymphopenia suspect he is in acute phases -- does report he has been feeling ill for about 3 weeks as above. Vaccinated but never + for COVID in the past. Continue decadron IV, finished remdesivir, pulmonary toilet as above Can consult pulm if needed/worsening Maintain isolation precautions, O2 as needed to maintain sats (3) Anemia: Plan: appears hgb lower than baseline levels, no significant IVF on admit but did get several mag of IV magnesium Checked iron studies/B12/folate for completeness, fecal occult next bowel movement and continue PPI BID as above for esophagitis Hgb improved yesterday to 8.9 (8.2) Fecal occult pending when able to collect. Iron studies w/o significant SARAH, B12/folate def Discussed blood count drop w/ hematology, rec holding hydroxyurea (doesn't take on weekends) and monitoring blood counts, make sure on DVT proph (on eliquis 5mg BID) Per Dr Joy, once blood counts stablized, nevin after a week or so, may want to consider resuming, especially if platelets are starting to climb anywhere above 600,000 - patient does have many listed side effects from such. Discussed w/ patient/ and [facility]'d [facility] discussions regarding continuing this medication/dosing adjustments given myelosuppressive side effects Continue to monitor CBC in AM (4) Ileus: Plan: checked due to nausea/abd pain prior --> evidence for possible ileus. hx bowel surgery/anastomosis noted Advanced to low fiber diet, encouraged ambulation (PT/OT evals ordered and pending) Bowel regimen Monitor for any worsening -- no vomiting. reflux sx controlled w/ ordered meds for esophagitis w/ PPI BID Stopped Carafate (5) Esophagitis: Plan: Main reason he came to ER ?secondary to Keflex Gastritis/esophagitis on CTAP, now w/ possible ileus Switched pantoprazole PO to IV and increased to BID on admission, added dose pepcid x 1 06/03 and repeat issues w/ pain after OJ this morning and scheduled daily GI evaluated and signed off. Exam today revealed oral candidiasis and started treatment with Diflucan (6) UTI (urinary tract infection): Plan: Diagnosed as outpatient, however [facility] and appears culture cancelled due to discoloration from Azo Repeat Ua/cx NEGATIVE, but had been on Keflex. Given Rocephin IV x 3 days, discontinued further -- denied any burning w/ urination Monitor for any fevers/further symptoms Appears also has BPH, on finasteride at baseline (7) Hypomagnesemia: Plan: Magnesium level 1.2 on admit, IV replacement ordered Mag level reviewed on AM labs, 1.6 added mag ox 400mg Repeat Mg level in the AM (8) Hypokalemia: Plan: K 3.0 on admission, given 20meq. Note on lasix 20mg daily at home and not on oral K supplementation (may need to be on something at d/c) K improved and normal yesterday 3.9 (9) Paroxysmal atrial fibrillation: Plan: Currently in NSR Anticoagulation with Eliquis No palpitations/lightheaded reported --> EKG for any symptoms Keep Mag ~2, K~4 as above (10) VIK on CPAP: Plan: BiPAP HS as able to tolerate -- refused x 2 evening on admit, discussed w/ /patient and he was agreeable last evening BIPAP HS as tolerated -- see about getting different equipment/headgear at d/c CM checked and [facility] is sending new head gear to patient's home, patient advised (11) PTSD (post-traumatic stress disorder): Plan: Do not wake patient by touching, 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) Continue sertraline, prazosin, bupropion Mood stable at present (12) Nephrolithiasis: Plan: noted 3mm nonobstructing calculi R jessi, mild circumferential urinary bladder wall thickening prior following w/ urology, BPH continue finasteride, no flank pain reported at present, abx for UTI as above started PO abx IMMUNOHEMATOLOGIST for burning w/ urination reported If any issues w/ voiding, bladder scan as needed, consult urology if needed (13) Vitamin D deficiency: Plan: checked given prior old rib fractures/chronic kidney disease and prior lows and not on oral supplementation (also hx kidney stones reported) Vit D level reviewed and LOW <7 --> ergocalciferol scheduled weekly and will need rx at d/c and repeat levels w/ PCP/[facility] (14) Oral candidiasis: Plan: treated with diflucan 200mg day 1 then 100mg daily Discussed need to rinse mouth after inhalers/nebulizer treatments Plan VTE Prophylaxis - Eliquis while inpatient PT/OT consults ordered and pending Admission and Anticipated Discharge Date Admission Date: June 01, 2022 Subjective eval this morning, sleeping and awoke easily to his name Patient complained of hoarse voice and throat. He denies any dysphagia or bolus arrest, or abdominal pain. He states he is tired today and was up early. Review of Systems Review of Systems: Patient denies any chest pain, SOB, dyspnea, nausea, vomiting, all other ROS negative unless stated + above. Physical Exam Constitutional: WD/WN, vitals as above ENMT: oropharynx pink moist and candidiasis improved from yesterday's exam Neck: trachea midline, no thyromegaly Respiratory: normal respiratory effort; no respiratory distress and no labored breathing Auscultation: lungs clear to auscultation bilaterally; no crackles, no rales and no rhonchi Cardiovascular: Rate/Rhythm: regular rate and regular rhythm Heart Sounds: + murmur Extremities: no calf tenderness and no edema Gastrointestinal (Abdomen): normal bowel sounds, soft, nontender, no hepatosplenomegaly Psychiatric: A+Ox3, euthymic affect Results & Data Results & Data Vital Signs (Past 12 Hours) Vital Signs Temp Pulse Resp BP Pulse Ox O2 Del Method 06/07/22 11:44 65 18 93 Room Air 06/07/22 08:53 36.5 C 68 18 129/78 92 Room Air 06/07/22 07:08 71 18 92 Room Air PG Care Time/CCT Total # of Minutes Spent Total Time Spent with Patient: Total time spent is greater than 50% in coordination of care (as documented) at patient's floor/unit and/or counseling patient: Coding Level of Care Code 57262 SUB INP/OBS CARE 35MIN Diagnoses Acute respiratory failure with hypoxia J96.01 COVID-19 U07.1 Anemia D64.9 Ileus K56.7 Esophagitis K20.90 UTI (urinary tract infection) N39.0 Hypomagnesemia E83.42 Hypokalemia E87.6 Paroxysmal atrial fibrillation I48.0 VIK on CPAP G47.33; Z99.89 PTSD (post-traumatic stress disorder) F43.10 Nephrolithiasis N20.0 Vitamin D deficiency E55.9 Oral candidiasis B37.0
[2022-06-07] MEDS: traZODone HCL 50 MG TAB PO SCH (21:34)
[2022-06-07] MEDS: PRAZOSIN HCL 1 MG CAP PO SCH (21:41)
[2022-06-08] MEDS: BUDESONIDE 0.5 MG/2 ML VIAL (PULMICORT) NEB SCH ×2 (07:25→19:25)
[2022-06-08] MEDS: FORMOTEROL 20 MCG/2 ML VIAL INH SCH ×2 (07:25→19:25)
[2022-06-08 08:32] LABS: Hemoglobin 8.5 g/dl (14.0-18.0); Mean Corpuscular Hemoglobin 29.2 pg (25.0-34.0); Mean Corpuscular Hgb Conc 31.5 g/dL (32.0-36.0); Mean Corpuscular Volume 92.8 fL (80.0-100.0); Mean Platelet Volume 10.9 fL (9.4-12.4); Nucleated RBC # (auto) 0.02 K/uL (0-0.12); Nucleated RBC % (auto) 0.9 %; Platelet Count 154 K/uL (130-400); RDW Coefficient of Variation 16.3 % (11.5-14.5); RDW Standard Deviation 55.2 fL (36.4-46.3); Red Blood Count 2.91 M/uL (4.70-6.10); White Blood Count 2.18 K/ul (4.8-10.8)
[2022-06-08] MEDS: MEMANTINE HCL 5 MG TAB PO SCH (08:36)
[2022-06-08] MEDS: FLUCONAZOLE 100 MG TAB PO SCH (08:36)
[2022-06-08] MEDS: DOCUSATE SODIUM/SENNA 50/8.6MG TAB PO SCH (08:36)
[2022-06-08] MEDS: MAGNESIUM OXIDE 400 MG TAB PO SCH (08:37)
[2022-06-08] MEDS: MONTELUKAST SODIUM 10 MG TABLET PO SCH (08:37)
[2022-06-08] MEDS: buPROPion XL 300 MG TABCR PO SCH (08:38)
[2022-06-08] MEDS: guaiFENesin 600 MG TABCR PO SCH ×2 (08:38→21:32)
[2022-06-08] MEDS: FINASTERIDE 5 MG TAB PO SCH (08:38)
[2022-06-08] MEDS: CYCLOBENZAPRINE HCL 10 MG TAB PO SCH ×2 (08:38→21:30)
[2022-06-08] MEDS: SERTRALINE HCL 100 MG TABLET PO SCH ×2 (08:39→21:32)
[2022-06-08] MEDS: ATORVASTATIN 10 MG TAB PO SCH (08:39)
[2022-06-08] MEDS: APIXABAN 5 MG TABLET PO SCH ×2 (08:39→21:33)
[2022-06-08] MEDS: busPIRone 7.5 MG TAB PO SCH ×3 (08:39→21:33)
[2022-06-08] MEDS: FUROSEMIDE 20 MG TAB PO SCH (08:39)
[2022-06-08] MEDS: METOPROLOL TARTRATE 25 MG TAB PO SCH ×2 (08:39→21:33)
[2022-06-08] MEDS: CARBIDOPA/LEVODOPA 25/100MG TAB PO SCH ×3 (08:40→22:04)
[2022-06-08] MEDS ORDERED: PANTOprazole 40 MG TAB PO SCH (09:00)
[2022-06-08 09:03] LABS: BUN Creatinine Ratio 21.6 (10-20); Calcium 8.6 mg/dl (8.6-10.3); Creatinine Clr Calc Pharmacy 75.1 ml/min; Est GFR (African American) 97.4 ml/min; Magnesium 1.6 mg/dl (1.7-2.4); Potassium 3.7 mmol/L (3.5-5.1)
[2022-06-08] MEDS: dexAMETHasone 6 MG in SYRINGE 0 ML IV SCH (10:52)
[2022-06-08] MEDS: PREGABALIN 150 MG CAP PO SCH ×2 (11:00→21:30)
[2022-06-08] MEDS: lisinopril 5 MG TAB PO SCH (11:00)
--- NOTE | 2022-06-08 15:40 | Hospitalist Progress Note ---
Date of Service June 08, 2022 Assessment & Plan (1) Acute respiratory failure with hypoxia: Plan: + Covid Continue decadron, incentive spirometer, flutter valve, mucinex. isolation precautions Finished Remdisivir Patient improving and respiratory discontinue the hypertonic saline, vibration vest and changed Duonebs to as needed. Asked CM to try and get the different headgear for his home CPAP/promote compliance (the [facility] is sending a comparable mask to patient's home) Continue mucinex BID currently 2L 96%, use BiPAP HS will need 2 step prior to discharge as well as PFTs/NIOX testing in follow up - Patient [facility] CM aware (2) COVID-19: Plan: Unclear duration of symptoms but given acute lymphopenia suspect he is in acute phases -- does report he has been feeling ill for about 3 weeks as above. Vaccinated but never + for COVID in the past. Continue decadron IV, finished remdesivir, pulmonary toilet as above Can consult pulm if needed/worsening Maintain isolation precautions, O2 as needed to maintain sats (3) Anemia: Plan: appears hgb lower than baseline levels, no significant IVF on admit but did get several mag of IV magnesium Checked iron studies/B12/folate for completeness, fecal occult next bowel movement and continue PPI BID as above for esophagitis Hgb improved yesterday to 8.9 (8.2) Fecal occult pending when able to collect. Iron studies w/o significant SARAH, B12/folate def Discussed blood count drop w/ hematology, rec holding hydroxyurea (doesn't take on weekends) and monitoring blood counts, make sure on DVT proph (on eliquis 5mg BID) Per Dr Joy, once blood counts stabilized, nevin after a week or so, may want to consider resuming, especially if platelets are starting to climb anywhere above 600,000 (Platelets ,000) - patient does have many listed side effects from such. Discussed w/ patient/ and rec'd f/u [facility] for further discussions regarding continuing this medication/dosing adjustments given myelosuppressive side effects Continue to monitor CBC in AM (4) Ileus: Plan: checked due to nausea/abd pain prior - evidence for possible ileus. hx bowel surgery/anastomosis noted Advanced to low fiber diet, encouraged ambulation (PT/OT evals ordered and pending) Bowel regimen Monitor for any worsening -- no vomiting. reflux sx controlled w/ ordered meds for esophagitis w/ PPI BID Stopped Carafate (5) Esophagitis: Plan: Main reason he came to ER ?secondary to Keflex Gastritis/esophagitis on CTAP, now w/ possible ileus Protonix 40mg BID GI evaluated and signed off. Oral candidiasis and started treatment with Diflucan (6) UTI (urinary tract infection): Plan: Diagnosed as outpatient, however [facility] obtained and appears culture cancelled due to discoloration from Azo Repeat Ua/cx NEGATIVE, but had been on Keflex. Given Rocephin IV x 3 days, discontinued further -- denied any burning w/ urination Monitor for any fevers/further symptoms Appears also has BPH, on finasteride at baseline (7) Hypomagnesemia: Plan: Magnesium level 1.2 on admit, IV replacement ordered Continue mag ox 400mg Repeat Mg level in the AM (8) Hypokalemia: Plan: K 3.0 on admission, given 20meq. Note on lasix 20mg daily at home and not on oral K supplementation (may need to be on something at d/c) K improved and normal yesterday 3.9 Today remains normal at 3.7 (9) Paroxysmal atrial fibrillation: Plan: Currently in NSR Anticoagulation with Eliquis No palpitations/lightheaded reported --> EKG for any symptoms Keep Mag ~2, K~4 as above (10) VIK on CPAP: Plan: BiPAP HS as able to tolerate - refused x 2 evening on admit, discussed w/ /patient and he was agreeable last evening CM checked and [facility] is sending new head gear to patient's home, patient advised (11) PTSD (post-traumatic stress disorder): Plan: Do not wake patient by touching, 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) Continue sertraline, prazosin, bupropion Mood stable at present (12) Nephrolithiasis: Plan: noted 3mm nonobstructing calculi R jessi, mild circumferential urinary bladder wall thickening prior following w/ urology, BPH continue finasteride, no flank pain reported at present, abx for UTI as above started PO abx OPTIMIZATION MANAGER for burning w/ urination reported If any issues w/ voiding, bladder scan as needed, consult urology if needed (13) Vitamin D deficiency: Plan: checked given prior old rib fractures/chronic kidney disease and prior lows and not on oral supplementation (also hx kidney stones reported) Vit D level reviewed and LOW <7 --> ergocalciferol scheduled weekly and will need rx at d/c and repeat levels w/ PCP/[facility] (14) Oral candidiasis: Plan: treated with diflucan 200mg day 1 then 100mg daily Discussed need to rinse mouth after inhalers/nebulizer treatments Plan VTE Prophylaxis - Eliquis while inpatient PT/OT evaluating Patient's agreed o have patient discharged to a rehab facility upon discharge possibly to [facility] Admission and Anticipated Discharge Date Admission Date: June 01, 2022 Subjective eval this morning, sleeping and awoke easily to his name Patient slid out of bed today, he was confused and states he thought he was going to work. Per his , who was at his bedside this afternoon stated with his Lewy Body Dementia he has good days and bad days and how he is acting currently is not out of character for him. She tells me he will have periods of confusion and then will sleep 24hours and when he awakens he is better. Review of Systems Review of Systems: Patient denies any chest pain, SOB, dyspnea, nausea, vomiting, all other ROS negative unless stated + above. Patient's only complaint today is hoarse voice. He is more fatigued and confused today Physical Exam Constitutional: WD/WN, vitals as above Neck: trachea midline, no thyromegaly Respiratory: normal respiratory effort; no respiratory distress and no labored breathing Auscultation: lungs clear to auscultation bilaterally; no crackles, no rales and no rhonchi Cardiovascular: Rate/Rhythm: regular rate and regular rhythm Heart Sounds: + murmur Extremities: no calf tenderness and no edema Gastrointestinal (Abdomen): normal bowel sounds, soft, nontender, no hepatosplenomegaly Psychiatric: Orientation: alert and oriented to person Results & Data Results & Data Vital Signs (Past 12 Hours) Vital Signs Temp Pulse Pulse Resp BP Pulse Ox O2 Del Method 06/08/22 14:20 96 Nasal Cannula 06/08/22 14:13 36.5 C 62 18 102/62 88 L Room Air 06/08/22 07:25 66 18 94 Room Air 06/08/22 07:10 35.8 C L 66 18 127/68 95 Room Air O2 Flow Rate 06/08/22 14:20 2 06/08/22 14:13 06/08/22 07:25 06/08/22 07:10 Laboratory Results Abnormal lab results 06/08/22 06/08/22 Range/Units 07:53 07:53 WBC 2.18 L (4.8-10.8) K/ul RBC 2.91 L (4.70-6.10) M/uL Hgb 8.5 L (14.0-18.0) g/dl Hct 27.0 L (42.0-52.0) % MCHC 31.5 L (32.0-36.0) g/dL RDW Std Deviation 55.2 H (36.4-46.3) fL RDW Coeff of Hector 16.3 H (11.5-14.5) % Carbon Dioxide 34 H (21-32) mmol/L BUN/Creatinine Ratio 21.6 H (10-20) Magnesium 1.6 L (1.7-2.4) mg/dl PG Care Time/CCT Total # of Minutes Spent Total Time Spent with Patient: Total time spent is greater than 50% in coordination of care (as documented) at patient's floor/unit and/or counseling patient: Coding Level of Care Code 29638 SUB INP/OBS CARE 2/35MIN Diagnoses Acute respiratory failure with hypoxia J96.01 COVID-19 U07.1 Anemia D64.9 Ileus K56.7 Esophagitis K20.90 UTI (urinary tract infection) N39.0 Hypomagnesemia E83.42 Hypokalemia E87.6 Paroxysmal atrial fibrillation I48.0 VIK on CPAP G47.33; Z99.89 PTSD (post-traumatic stress disorder) F43.10 Nephrolithiasis N20.0 Vitamin D deficiency E55.9 Oral candidiasis B37.0
[2022-06-08] MEDS: traZODone HCL 50 MG TAB PO SCH (21:30)
[2022-06-08] MEDS: PANTOprazole 40 MG TAB PO SCH (21:31)
[2022-06-08] MEDS: PRAZOSIN HCL 1 MG CAP PO SCH (21:32)
[2022-06-09] MEDS: FORMOTEROL 20 MCG/2 ML VIAL INH SCH ×2 (07:24→20:15)
[2022-06-09] MEDS: BUDESONIDE 0.5 MG/2 ML VIAL (PULMICORT) NEB SCH ×2 (07:24→20:14)
[2022-06-09] MEDS: busPIRone 7.5 MG TAB PO SCH ×3 (08:56→21:48)
[2022-06-09] MEDS: ATORVASTATIN 10 MG TAB PO SCH (08:56)
[2022-06-09] MEDS: APIXABAN 5 MG TABLET PO SCH ×2 (08:56→21:45)
[2022-06-09] MEDS: buPROPion XL 300 MG TABCR PO SCH (08:56)
[2022-06-09] MEDS: FUROSEMIDE 20 MG TAB PO SCH (08:57)
[2022-06-09] MEDS: guaiFENesin 600 MG TABCR PO SCH ×2 (08:57→21:48)
[2022-06-09] MEDS: MEMANTINE HCL 5 MG TAB PO SCH (08:57)
[2022-06-09] MEDS: CYCLOBENZAPRINE HCL 10 MG TAB PO SCH ×2 (08:57→21:47)
[2022-06-09] MEDS: FINASTERIDE 5 MG TAB PO SCH (08:57)
[2022-06-09] MEDS: CARBIDOPA/LEVODOPA 25/100MG TAB PO SCH ×3 (08:57→21:46)
[2022-06-09] MEDS: MAGNESIUM OXIDE 400 MG TAB PO SCH (08:57)
[2022-06-09] MEDS: FLUCONAZOLE 100 MG TAB PO SCH (08:57)
[2022-06-09] MEDS: METOPROLOL TARTRATE 25 MG TAB PO SCH (08:57)
[2022-06-09] MEDS: DOCUSATE SODIUM/SENNA 50/8.6MG TAB PO SCH (08:57)
[2022-06-09] MEDS: lisinopril 5 MG TAB PO SCH (08:57)
[2022-06-09] MEDS: SERTRALINE HCL 100 MG TABLET PO SCH ×2 (08:58→21:46)
[2022-06-09] MEDS: MONTELUKAST SODIUM 10 MG TABLET PO SCH (08:58)
[2022-06-09] MEDS: dexAMETHasone 6 MG in SYRINGE 0 ML IV SCH (08:58)
[2022-06-09] MEDS: PANTOprazole 40 MG TAB PO SCH ×2 (08:58→21:48)
[2022-06-09] MEDS: PREGABALIN 150 MG CAP PO SCH ×2 (10:07→21:45)
[2022-06-09 10:13] LABS: Calcium 8.6 mg/dl (8.6-10.3); Creatinine Clr Calc Pharmacy 45.4 ml/min; Est GFR (African American) 57.1 ml/min; Est GFR (Non-African American) 49.2 ml/min; Magnesium 1.9 mg/dl (1.7-2.4); Potassium 3.7 mmol/L (3.5-5.1)
--- NOTE | 2022-06-09 13:45 | Hospitalist Progress Note ---
Date of Service June 09, 2022 Assessment & Plan (1) Acute respiratory failure with hypoxia: Plan: + Covid Continue decadron, incentive spirometer, flutter valve, mucinex. isolation precautions Finished Remdisivir Patient improving and respiratory discontinue the hypertonic saline, vibration vest and changed Duonebs to as needed. Asked CM to try and get the different headgear for his home CPAP/promote compliance ([facility] is [facility] comparable mask to patient's home) Continue mucinex BID currently RA 94%, use BiPAP HS will need PFTs/NIOX testing in follow up - Patient prefers to have testing through the [facility] CM aware Will get a 2 step prior to discharge D/C to [facility] after 10 days past + test - 06/11 or after. (2) COVID-19: Plan: Unclear duration of symptoms but given acute lymphopenia suspect he is in acute phases -- does report he has been feeling ill for about 3 weeks as above. Vaccinated but never + for COVID in the past. Continue decadron IV, finished remdesivir, pulmonary toilet as above Can consult pulm if needed/worsening Maintain isolation precautions, O2 as needed to maintain sats Will get a 2 step prior to discharge to [facility] (3) Anemia: Plan: appears hgb lower than baseline levels, no significant IVF on admit but did get several mag of IV magnesium Checked iron studies/B12/folate for completeness, fecal occult next bowel movement and continue PPI BID as above for esophagitis Hgb stable Fecal occult pending when able to collect. Iron studies w/o significant SARAH, B12/folate def Discussed blood count drop w/ hematology, rec holding hydroxyurea (doesn't take on weekends) and monitoring blood counts, make sure on DVT proph (on eliquis 5mg BID) Per Dr Joy, once blood counts stabilized, nevin after a week or so, may want to consider resuming,(possibly resume hydroxyurea Monday06/13/22) especially if platelets are starting to climb anywhere above 600,000 (Platelet06/08 - 154,000) - patient does have many listed side effects from such. Discussed w/ patient/ and [facility] regarding continuing this medication/dosing adjustments given myelosuppressive side effects Continue to monitor CBC, BMP and Mg in AM (4) Ileus: Plan: checked due to nausea/abd pain prior - evidence for possible ileus. hx bowel surgery/anastomosis noted Advanced to low fiber diet, encouraged ambulation (PT/OT) Bowel regimen - Miralax 17 gm today Monitor for any worsening -- no vomiting. reflux sx controlled w/ ordered meds for esophagitis w/ PPI BID Stopped Carafate (5) Esophagitis: Plan: Main reason he came to ER ?secondary to Keflex Gastritis/esophagitis on CTAP, now w/ possible ileus Protonix 40mg BID GI evaluated and signed off. Oral candidiasis and started treatment with Diflucan (6) UTI (urinary tract infection): Plan: Diagnosed as outpatient, however [facility] obtained and appears culture cancelled due to discoloration from Azo Repeat Ua/cx NEGATIVE, but had been on Keflex. Given Rocephin IV x 3 days, discontinued further -- denied any burning w/ urination Monitor for any fevers/further symptoms Appears also has BPH, on finasteride at baseline (7) Hypomagnesemia: Plan: Magnesium level 1.2 on admit, IV replacement ordered Continue mag ox 400mg Repeat Mg level in the AM (8) Hypokalemia: Plan: K 3.0 on admission, given 20meq. Note on lasix 20mg daily at home and not on oral K supplementation (may need to be on something at d/c) K improved and has remained stable and normal (9) Paroxysmal atrial fibrillation: Plan: Currently in NSR Anticoagulation with Eliquis No palpitations/lightheaded reported --> EKG for any symptoms Keep Mag ~2, K~4 as above Repeat Mg and K+ in AM (10) VIK on CPAP: Plan: BiPAP HS as able to tolerate - refused x 2 evening on admit, discussed w/ /patient and he was agreeable last evening CM checked and [facility] is sending new head gear to patient's home, patient advised (11) PTSD (post-traumatic stress disorder): Plan: Do not wake patient by touching, 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) Continue sertraline, prazosin, bupropion Mood stable at present (12) Nephrolithiasis: Plan: noted 3mm nonobstructing calculi R jessi, mild circumferential urinary bladder wall thickening prior following w/ urology, BPH continue finasteride, no flank pain reported at present, abx for UTI as above started PO abx NIPPLE MACHINE OPERATOR for burning w/ urination reported If any issues w/ voiding, bladder scan as needed, consult urology if needed (13) Vitamin D deficiency: Plan: checked given prior old rib fractures/chronic kidney disease and prior lows and not on oral supplementation (also hx kidney stones reported) Vit D level reviewed and LOW <7 - ergocalciferol scheduled weekly and will need rx at d/c and repeat levels w/ PCP/[facility] (14) Oral candidiasis: Plan: treated with diflucan 200mg day 1 then 100mg daily Discussed need to rinse mouth after inhalers/nebulizer treatments Plan VTE Prophylaxis - Eliquis while inpatient PT/OT evaluating Patient's agreed to have patient discharged to a rehab facility upon discharge ([facility], but need to wait 10 days from + Covid test 06/01/22) Admission and Anticipated Discharge Date Admission Date: June 01, 2022 Subjective eval this afternoon, Patient is awake in bed watching TV with his at bedside Patient seems more alert and not as confused today He has no complaints today Review of Systems Review of Systems: Patient denies any chest pain, SOB, dyspnea, nausea, vomiting, all other ROS negative unless stated + above. Patient's only complaint today is hoarse voice. He is more fatigued and confused today Physical Exam Constitutional: WD/WN, vitals as above Neck: trachea midline, no thyromegaly Respiratory: normal respiratory effort; no respiratory distress and no labored breathing Auscultation: lungs clear to auscultation bilaterally; no crackles, no rales and no rhonchi Cardiovascular: Rate/Rhythm: regular rate and regular rhythm Heart Sounds: + murmur Extremities: no calf tenderness and no edema Gastrointestinal (Abdomen): normal bowel sounds, soft, nontender, no hepatosplenomegaly Mildly more distended today, nontender. Last BM 3 dys ago Psychiatric: Orientation: alert, oriented to person and cooperative Results & Data Results & Data Vital Signs (Past 12 Hours) Vital Signs Temp Pulse Resp BP Pulse Ox O2 Del Method O2 Flow Rate 06/09/22 08:00 36.6 C 62 18 119/68 94 Room Air 06/09/22 07:24 58 L 16 94 Nasal Cannula 2 Laboratory Results Abnormal lab results 04/13/23 Range/Units 09:39 BUN 25 H (6-23) mg/dl Glucose 103 H (70-99(Fasting)) mg/dl PG Care Time/CCT Total # of Minutes Spent Total Time Spent with Patient: Total time spent is greater than 50% in coordination of care (as documented) at patient's floor/unit and/or counseling patient: Coding Level of Care Code 39153 SUB INP/OBS CARE 2/35MIN Diagnoses Acute respiratory failure with hypoxia J96.01 COVID-19 U07.1 Anemia D64.9 Ileus K56.7 Esophagitis K20.90 UTI (urinary tract infection) N39.0 Hypomagnesemia E83.42 Hypokalemia E87.6 Paroxysmal atrial fibrillation I48.0 VIK on CPAP G47.33; Z99.89 PTSD (post-traumatic stress disorder) F43.10 Nephrolithiasis N20.0 Vitamin D deficiency E55.9 Oral candidiasis B37.0
[2022-06-09] MEDS ORDERED: POLYETHYLENE (MIRALAX) 17 GM PACK PO ONE (13:47)
[2022-06-09 18:02] LABS: Hematocrit (blood only) 26.8 % (42.0-52.0); Hemoglobin 8.8 g/dl (14.0-18.0)
[2022-06-09] MEDS: PRAZOSIN HCL 1 MG CAP PO SCH (21:44)
[2022-06-09] MEDS: traZODone HCL 50 MG TAB PO SCH (21:45)
[2022-06-10] MEDS: BUDESONIDE 0.5 MG/2 ML VIAL (PULMICORT) NEB SCH ×2 (07:46→20:08)
[2022-06-10] MEDS: FORMOTEROL 20 MCG/2 ML VIAL INH SCH ×2 (07:46→20:08)
[2022-06-10 08:25] LABS: Hematocrit (blood only) 24.4 % (42.0-52.0); Hemoglobin 7.6 g/dl (14.0-18.0); Mean Corpuscular Hemoglobin 29.2 pg (25.0-34.0); Mean Corpuscular Hgb Conc 31.1 g/dL (32.0-36.0); Mean Corpuscular Volume 93.8 fL (80.0-100.0); Mean Platelet Volume 11.2 fL (9.4-12.4); Platelet Count 134 K/uL (130-400); RDW Coefficient of Variation 16.7 % (11.5-14.5); RDW Standard Deviation 57.4 fL (36.4-46.3); White Blood Count 2.68 K/ul (4.8-10.8)
[2022-06-10 08:31] LABS: BUN Creatinine Ratio 18.4 (10-20); Calcium 8.4 mg/dl (8.6-10.3); Creatinine Clr Calc Pharmacy 28.3 ml/min; Est GFR (African American) 32.2 ml/min; Est GFR (Non-African American) 27.8 ml/min; Magnesium 1.9 mg/dl (1.7-2.4); Potassium 3.8 mmol/L (3.5-5.1)
[2022-06-10] MEDS: CARBIDOPA/LEVODOPA 25/100MG TAB PO SCH ×3 (08:37→20:42)
[2022-06-10] MEDS: ATORVASTATIN 10 MG TAB PO SCH (08:37)
[2022-06-10] MEDS: busPIRone 7.5 MG TAB PO SCH ×3 (08:37→20:42)
[2022-06-10] MEDS: FLUCONAZOLE 100 MG TAB PO SCH (08:37)
[2022-06-10] MEDS: DOCUSATE SODIUM/SENNA 50/8.6MG TAB PO SCH (08:38)
[2022-06-10] MEDS: guaiFENesin 600 MG TABCR PO SCH ×2 (08:38→20:42)
[2022-06-10] MEDS: SERTRALINE HCL 100 MG TABLET PO SCH ×2 (08:38→20:42)
[2022-06-10] MEDS: MEMANTINE HCL 5 MG TAB PO SCH (08:38)
[2022-06-10] MEDS: buPROPion XL 300 MG TABCR PO SCH (08:38)
[2022-06-10] MEDS: APIXABAN 5 MG TABLET PO SCH ×2 (08:38→20:42)
[2022-06-10] MEDS: dexAMETHasone 6 MG in SYRINGE 0 ML IV SCH (08:38)
[2022-06-10] MEDS: MONTELUKAST SODIUM 10 MG TABLET PO SCH (08:38)
[2022-06-10] MEDS: MAGNESIUM OXIDE 400 MG TAB PO SCH (08:38)
[2022-06-10] MEDS: PANTOprazole 40 MG TAB PO SCH ×2 (08:38→20:42)
[2022-06-10] MEDS: FINASTERIDE 5 MG TAB PO SCH (08:40)
[2022-06-10] MEDS: lisinopril 5 MG TAB PO SCH (09:01)
[2022-06-10] MEDS: FUROSEMIDE 20 MG TAB PO SCH (09:01)
[2022-06-10] MEDS: CYCLOBENZAPRINE HCL 10 MG TAB PO SCH ×2 (09:02→20:42)
[2022-06-10] MEDS: PREGABALIN 150 MG CAP PO SCH ×2 (09:02→20:50)
[2022-06-10] MEDS ORDERED: POLYETHYLENE (MIRALAX) 17 GM PACK PO ONE (14:10)
--- NOTE | 2022-06-10 14:11 | Hospitalist Progress Note ---
Date of Service June 10, 2022 Assessment & Plan (1) Acute respiratory failure with hypoxia: Plan: + Covid Continue decadron, incentive spirometer, flutter valve, mucinex. isolation precautions Finished Remdisivir Patient improving and respiratory discontinue the hypertonic saline, vibration vest and changed Duonebs to as needed. Asked CM to try and get the different headgear for his home CPAP/promote compliance ([facility]'s [facility]) Continue mucinex BID 4L mask 99%, use BiPAP HS will need PFTs/NIOX testing in follow up - Patient prefers to have testing through the [place] system CM aware Will get a 2 step prior to discharge D/C to [facility] (after 10 days past + test 06/01/22)- Per CM Bed available Monday (2) COVID-19: Plan: Unclear duration of symptoms but given acute lymphopenia suspect he is in acute phases -- does report he has been feeling ill for about 3 weeks as above. Vaccinated but never + for COVID in the past. Continue decadron IV, finished remdesivir, pulmonary toilet as above Can consult pulm if needed/worsening Maintain isolation precautions, O2 as needed to maintain sats Will get a 2 step prior to discharge to [facility] (3) Anemia: Plan: appears hgb lower than baseline levels, no significant IVF on admit but did get several mag of IV magnesium Checked iron studies/B12/folate for completeness, fecal occult next bowel movement and continue PPI BID as above for esophagitis Hgb dropped slightly but no evidence of any bleeding will repeat a H&H Fecal occult pending when able to collect. Iron studies w/o significant SARAH, B12/folate def Discussed blood count drop w/ hematology, rec holding hydroxyurea (doesn't take on weekends) and monitoring blood counts, make sure on DVT proph (on eliquis 5mg BID) Per Dr Joy, once blood counts stabilized, nevin after a week or so, may want to consider resuming,(possibly resume hydroxyurea Monday06/13/22) especially if platelets are starting to climb anywhere above 600,000 (Platelet4/ - 134,000) - patient does have many listed side effects from such. Discussed w/ patient/ and [facility]'d [facility] discussions regarding continuing this medication/dosing adjustments given myelosuppressive side effects Continue to monitor CBC, BMP and Mg in AM (4) Ileus: Plan: Resolved Tolerating low fiber diet, encouraged ambulation (PT/OT) Bowel regimen - Miralax 17 gm today May need Dulcolax suppository Monitor for any worsening -- no vomiting. reflux sx controlled w/ ordered meds for esophagitis w/ PPI BID (5) Esophagitis: Plan: Main reason he came to ER ?secondary to Keflex Gastritis/esophagitis on CTAP, now w/ possible ileus Protonix 40mg BID GI evaluated and signed off. Oral candidiasis and started treatment with Diflucan 06/06/22 (6) UTI (urinary tract infection): Plan: Diagnosed as outpatient, however [facility] and appears culture cancelled due to discoloration from Azo Repeat Ua/cx NEGATIVE, but had been on Keflex. Given Rocephin IV x 3 days, discontinued further - denied any burning w/ urination Monitor for any fevers/further symptoms Appears also has BPH, on finasteride at baseline 06/10 - Patient stated was unable to urinate bladder scan and send U/A C&S Started IVFs NSS at 80 (7) Hypomagnesemia: Plan: Magnesium level 1.2 on admit, IV replacement ordered Continue mag ox 400mg Mg improved and stable (8) Hypokalemia: Plan: K 3.0 on admission, given 20meq. Note on lasix 20mg daily at home and not on oral K supplementation (may need to be on something at d/c) K improved and has remained stable and normal (9) Paroxysmal atrial fibrillation: Plan: Currently in NSR Anticoagulation with Eliquis No palpitations/lightheaded reported --> EKG for any symptoms Keep Mag ~2, K~4 as above Repeat Mg and K+ in AM (10) VIK on CPAP: Plan: BiPAP HS as able to tolerate - refused x 2 evening on admit, discussed w/ /patient and he was agreeable last evening CM checked and [facility] is sending new head gear to patient's home, patient advised (11) PTSD (post-traumatic stress disorder): Plan: Do not wake patient by touching, 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) Continue sertraline, prazosin, bupropion Mood stable at present (12) Nephrolithiasis: Plan: noted 3mm nonobstructing calculi R jessi, mild circumferential urinary bladder wall thickening prior following w/ urology, BPH continue finasteride, no flank pain reported at present, abx for UTI as above started PO abx NEUROSURGERY PHYSICIAN for burning w/ urination reported If any issues w/ voiding, bladder scan as needed, consult urology if needed (13) Vitamin D deficiency: Plan: checked given prior old rib fractures/chronic kidney disease and prior lows and not on oral supplementation (also hx kidney stones reported) Vit D level reviewed and LOW <7 - ergocalciferol scheduled weekly and will need rx at d/c and repeat levels w/ [facility]CP/[facility] (14) Oral candidiasis: Plan: treated with diflucan 200mg day 1 then 100mg daily Discussed need to rinse mouth after inhalers/nebulizer treatments (15) TARUN (acute kidney injury): Plan: Patient reported unable to urinate Elevated BUN and Cr today IVF 80/hr Bladder scan U/A with C&S Plan VTE Prophylaxis - Eliquis while inpatient PT/OT evaluating Patient's agreed to have patient discharged to a rehab facility upon discharge ([facility], but need to wait 10 days from + Covid test 06/01/22) per CM Bed available Monday Admission and Anticipated Discharge Date Admission Date: June 01, 2022 Subjective evaluated patient this morning, he is alert laying in bed and is at bedside. He is less confused and more alert today. Review of Systems Review of Systems: Patient denies any chest pain, SOB, dyspnea, nausea, vomiting, all other ROS negative unless stated + above. He states he has a mild sore throat when swallowing but denies any dysphagia. He has not had a BM since 06/07 Physical Exam Constitutional: WD/WN, vitals as above ENMT: oropharynx pink moist, previous white candidiasis plaques resolved Neck: trachea midline, no thyromegaly Respiratory: normal respiratory effort; no respiratory distress and no labored breathing Auscultation: lungs clear to auscultation bilaterally; no crackles, no rales and no rhonchi Cardiovascular: Rate/Rhythm: regular rate and regular rhythm Heart Sounds: + murmur Extremities: no calf tenderness and no edema Gastrointestinal (Abdomen): normal bowel sounds, soft, nontender, no hepatosplenomegaly obese, and mildly distended Psychiatric: Orientation: alert, oriented to person, oriented to place and cooperative Results & Data Results & Data Vital Signs (Past 12 Hours) Vital Signs Temp Pulse Pulse Resp BP Pulse Ox O2 Del Method 06/10/22 07:47 60 18 99 Oxymask 06/10/22 07:13 94 Oxymask 06/10/22 07:10 36.7 C 71 18 100/59 L 83 L Room Air O2 Flow Rate 06/10/22 07:47 4 06/10/22 07:13 4 06/10/22 07:10 Laboratory Results Abnormal lab results 06/09/22 06/10/22 06/10/22 Range/Units 17:11 07:18 07:18 WBC 2.68 L (4.8-10.8) K/ul RBC 2.60 L (4.70-6.10) M/uL Hgb 8.8 L 7.6 L (14.0-18.0) g/dl Hct 26.8 L 24.4 L (42.0-52.0) % MCHC 31.1 L (32.0-36.0) g/dL RDW Std Deviation 57.4 H (36.4-46.3) fL RDW Coeff of Hector 16.7 H (11.5-14.5) % BUN 41 H (6-23) mg/dl Creatinine 2.23 H D (0.6-1.4) mg/dl Calcium 8.4 L (8.6-10.3) mg/dl PG Care Time/CCT Total # of Minutes Spent Total Time Spent with Patient: Total time spent is greater than 50% in coordination of care (as documented) at patient's floor/unit and/or counseling patient: Coding Level of Care Code 42590 SUB INP/OBS CARE 2/35MIN Diagnoses Acute respiratory failure with hypoxia J96.01 COVID-19 U07.1 Anemia D64.9 Ileus K56.7 Esophagitis K20.90 UTI (urinary tract infection) N39.0 Hypomagnesemia E83.42 Hypokalemia E87.6 Paroxysmal atrial fibrillation I48.0 VIK on CPAP G47.33; Z99.89 PTSD (post-traumatic stress disorder) F43.10 Nephrolithiasis N20.0 Vitamin D deficiency E55.9 Oral candidiasis B37.0 TRAUN (acute kidney injury) N17.9
[2022-06-10 15:08] LABS: Hematocrit (blood only) 25.9 % (42.0-52.0)
[2022-06-10] MEDS: SODIUM CHLORIDE 0.9% 1000ML 1,000 ML IV SCH (15:28)
[2022-06-10] MEDS: traZODone HCL 50 MG TAB PO SCH (20:42)
[2022-06-10] MEDS: PRAZOSIN HCL 1 MG CAP PO SCH (20:42)
[2022-06-11] MEDS: SODIUM CHLORIDE 0.9% 1000ML 1,000 ML IV SCH ×2 (04:15→23:13)
[2022-06-11] MEDS ORDERED: POLYETHYLENE (MIRALAX) 17 GM PACK PO PRN (07:11)
[2022-06-11 07:30] LABS: Hematocrit (blood only) 24.6 % (42.0-52.0); Hemoglobin 7.6 g/dl (14.0-18.0); Mean Corpuscular Hemoglobin 29.3 pg (25.0-34.0); Mean Corpuscular Hgb Conc 30.9 g/dL (32.0-36.0); Mean Platelet Volume 10.7 fL (9.4-12.4); Platelet Count 136 K/uL (130-400); RDW Coefficient of Variation 16.8 % (11.5-14.5); RDW Standard Deviation 58.4 fL (36.4-46.3); Red Blood Count 2.59 M/uL (4.70-6.10); White Blood Count 2.79 K/ul (4.8-10.8)
[2022-06-11 07:44] LABS: BUN Creatinine Ratio 23.2 (10-20); Calcium 8.6 mg/dl (8.6-10.3); Creatinine Clr Calc Pharmacy 50.5 ml/min; Est GFR (African American) 64.9 ml/min; Magnesium 1.8 mg/dl (1.7-2.4); Potassium 4.1 mmol/L (3.5-5.1)
[2022-06-11] MEDS: FORMOTEROL 20 MCG/2 ML VIAL INH SCH ×2 (08:10→20:12)
[2022-06-11] MEDS: BUDESONIDE 0.5 MG/2 ML VIAL (PULMICORT) NEB SCH ×2 (08:10→20:11)
[2022-06-11] MEDS: PREGABALIN 150 MG CAP PO SCH ×2 (09:44→21:39)
[2022-06-11] MEDS: CYCLOBENZAPRINE HCL 10 MG TAB PO SCH ×2 (09:44→21:45)
[2022-06-11] MEDS: PANTOprazole 40 MG TAB PO SCH ×2 (09:44→21:39)
[2022-06-11] MEDS: CARBIDOPA/LEVODOPA 25/100MG TAB PO SCH ×3 (09:45→21:47)
[2022-06-11] MEDS: MONTELUKAST SODIUM 10 MG TABLET PO SCH (09:46)
[2022-06-11] MEDS: lisinopril 5 MG TAB PO SCH (09:47)
[2022-06-11] MEDS: busPIRone 7.5 MG TAB PO SCH ×3 (09:47→21:41)
[2022-06-11] MEDS: FUROSEMIDE 20 MG TAB PO SCH (09:48)
[2022-06-11] MEDS: guaiFENesin 600 MG TABCR PO SCH ×2 (09:48→21:46)
[2022-06-11] MEDS: DOCUSATE SODIUM/SENNA 50/8.6MG TAB PO SCH (09:48)
[2022-06-11] MEDS: FLUCONAZOLE 100 MG TAB PO SCH (09:49)
[2022-06-11] MEDS: FINASTERIDE 5 MG TAB PO SCH (09:49)
[2022-06-11] MEDS: ATORVASTATIN 10 MG TAB PO SCH (09:49)
[2022-06-11] MEDS: MEMANTINE HCL 5 MG TAB PO SCH (09:49)
[2022-06-11] MEDS: MAGNESIUM OXIDE 400 MG TAB PO SCH (09:50)
[2022-06-11] MEDS: buPROPion XL 300 MG TABCR PO SCH (09:50)
[2022-06-11] MEDS: APIXABAN 5 MG TABLET PO SCH ×2 (09:50→21:40)
[2022-06-11] MEDS: SERTRALINE HCL 100 MG TABLET PO SCH ×2 (09:50→21:42)
--- NOTE | 2022-06-11 13:41 | Hospitalist Progress Note ---
Date of Service June 11, 2022 Assessment & Plan (1) Acute respiratory failure with hypoxia: Plan: + Covid Continue decadron, incentive spirometer, flutter valve, mucinex. isolation precautions Finished Remdisivir Patient improving and respiratory discontinue the hypertonic saline, vibration vest and changed Duonebs to as needed. Asked CM to try and get the different headgear for his home CPAP/promote compliance ([facility] is [facility] mask to [facility]'s home) Continue mucinex BID prn Currently on RA 91%, use BiPAP HS will need PFTs/NIOX testing in follow up - Patient prefers to have testing through the [place] system CM aware Will get a 2 step prior to discharge D/C to [facility] (after 10 days past + test 06/01/22)- Per CM Bed available Monday (2) COVID-19: Plan: Unclear duration of symptoms but given acute lymphopenia suspect he is in acute phases -- does report he has been feeling ill for about 3 weeks as above. Vaccinated but never + for COVID in the past. Continue decadron IV, finished remdesivir, pulmonary toilet as above Can consult pulm if needed/worsening Maintain isolation precautions, O2 as needed to maintain sats Will get a 2 step prior to discharge to [facility] (3) Anemia: Plan: appears hgb lower than baseline levels, no significant IVF on admit but did get several mag of IV magnesium Checked iron studies/B12/folate for completeness, fecal occult next bowel movement and continue PPI BID as above for esophagitis Hgb dropped slightly but no evidence of any bleeding will repeat a H&H Fecal occult pending when able to collect. Iron studies w/o significant SAARH, B12/folate def Discussed blood count drop w/ hematology, rec holding hydroxyurea (doesn't take on weekends) and monitoring blood counts, make sure on DVT proph (on eliquis 5mg BID) Per Dr Joy, once blood counts stabilized, nevin after a week or so, may want to consider resuming,(possibly resume hydroxyurea Monday06/13/22) especially if platelets are starting to climb anywhere above 600,000 (Platelet4/15 - 136,000) - patient does have many listed side effects from such. Discussed w/ patient/ and rec'd f/u [facility] for further discussions regarding continuing this medication/dosing adjustments given myelosuppressive side effects Continue to monitor CBC, BMP and Mg in AM Hgb relatively stable 7.6 (8.0) (7.6) (4) Ileus: Plan: Resolved Tolerating low fiber diet, encouraged ambulation (PT/OT) Bowel regimen - Miralax 17 gm scheduled May need Dulcolax suppository Monitor for any worsening -- no vomiting. reflux sx controlled w/ ordered meds for esophagitis w/ PPI BID (5) Esophagitis: Plan: Main reason he came to ER ?secondary to Keflex Gastritis/esophagitis on CTAP, now w/ possible ileus Protonix 40mg BID GI evaluated and signed off. Oral candidiasis and started treatment with Diflucan 06/06/22 (6) UTI (urinary tract infection): Plan: Diagnosed as outpatient, [facility] and appears culture cancelled due to discoloration from Azo Repeat Ua/cx NEGATIVE, but had been on Keflex. Given Rocephin IV x 3 days, discontinued further - denied any burning w/ urination Monitor for any fevers/further symptoms Appears also has BPH, on finasteride at baseline 06/10 - Patient stated was unable to urinate bladder scan and send U/A C&S - with diptheroids Started IVFs NSS at 80 (7) Hypomagnesemia: Plan: Magnesium level 1.2 on admit, IV replacement ordered Continue mag ox 400mg Mg improved and stable (8) Hypokalemia: Plan: K 3.0 on admission, given 20meq. Note on lasix 20mg daily at home and not on oral K supplementation (may need to be on something at d/c) K improved and has remained stable and normal (9) Paroxysmal atrial fibrillation: Plan: Currently in NSR Anticoagulation with Eliquis No palpitations/lightheaded reported --> EKG for any symptoms Keep Mag ~2, K~4 as above Repeat Mg and K+ in AM (10) VIK on CPAP: Plan: BiPAP HS as able to tolerate - refused x 2 evening on admit, discussed w/ /patient and he was agreeable last evening CM checked and [facility] is [facility] to patient's home, patient advised (11) PTSD (post-traumatic stress disorder): Plan: Do not wake patient by touching, 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) Continue sertraline, prazosin, bupropion Mood stable at present (12) Nephrolithiasis: Plan: noted 3mm nonobstructing calculi R jessi, mild circumferential urinary bladder wall thickening prior following w/ urology, BPH continue finasteride, no flank pain reported at present, abx for UTI as above started PO abx ICT SALES REPRESENTATIVE for burning w/ urination reported If any issues w/ voiding, bladder scan as needed, consult urology if needed (13) Vitamin D deficiency: Plan: checked given prior old rib fractures/chronic kidney disease and prior lows and not on oral supplementation (also hx kidney stones reported) Vit D level reviewed and LOW <7 - ergocalciferol scheduled weekly and will need rx at d/c and repeat levels w/ [facility] (14) Oral candidiasis: Plan: treated with diflucan 200mg day 1 then 100mg daily Discussed need to rinse mouth after inhalers/nebulizer treatments (15) TARUN (acute kidney injury): Plan: Patient reported unable to urinate Elevated BUN and Cr today IVF 80/hr Bladder scan U/A with C&S Plan VTE Prophylaxis - Eliquis while inpatient PT/OT evaluating Patient's agreed to have patient discharged to a rehab facility upon d ischarge ([facility], but need to wait 10 days from + Covid test 06/01/22) per CM Bed available Monday Admission and Anticipated Discharge Date Admission Date: June 01, 2022 Subjective evaluated patient this morning, he is alert laying in bed. He is not confused and states he is feeling well. Review of Systems Review of Systems: Patient denies any chest pain, SOB, dyspnea, nausea, vomiting, all other ROS negative unless stated + above. He states he has a mild sore throat when swallowing but denies any dysphagia. Physical Exam Constitutional: WD/WN, vitals as above Neck: trachea midline, no thyromegaly Respiratory: normal respiratory effort; no respiratory distress and no labored breathing Auscultation: lungs clear to auscultation bilaterally; no crackles, no rales and no rhonchi Cardiovascular: Rate/Rhythm: regular rate and regular rhythm Heart Sounds: + murmur Extremities: no calf tenderness and no edema Gastrointestinal (Abdomen): normal bowel sounds, soft, nontender, no hepatosplenomegaly Psychiatric: A+Ox3, euthymic affect Orientation: alert, oriented to person, oriented to place and cooperative Results & Data Results & Data Vital Signs (Past 12 Hours) Vital Signs Temp Pulse Resp BP Pulse Ox O2 Del Method 06/11/22 08:11 66 16 92 Room Air 06/11/22 07:10 36.5 C 68 16 134/71 93 Room Air Laboratory Results Abnormal lab results 06/11/22 06/11/22 Range/Units 06:57 06:57 WBC 2.79 L (4.8-10.8) K/ul RBC 2.59 L (4.70-6.10) M/uL Hgb 7.6 L (14.0-18.0) g/dl Hct 24.6 L (42.0-52.0) % MCHC 30.9 L (32.0-36.0) g/dL RDW Std Deviation 58.4 H (36.4-46.3) fL RDW Coeff of Hector 16.8 H (11.5-14.5) % BUN 29 H (6-23) mg/dl BUN/Creatinine Ratio 23.2 H (10-20) Glucose 121 H (70-99(Fasting)) mg/dl PG Care Time/CCT Total # of Minutes Spent Total Time Spent with Patient: Total time spent is greater than 50% in coordination of care (as documented) at patient's floor/unit and/or counseling patient: Coding Level of Care Code 46882 SUB INP/OBS CARE 1/25MIN Diagnoses Acute respiratory failure with hypoxia J96.01 COVID-19 U07.1 Anemia D64.9 Ileus K56.7 Esophagitis K20.90 UTI (urinary tract infection) N39.0 Hypomagnesemia E83.42 Hypokalemia E87.6 Paroxysmal atrial fibrillation I48.0 VIK on CPAP G47.33; Z99.89 PTSD (post-traumatic stress disorder) F43.10 Nephrolithiasis N20.0 Vitamin D deficiency E55.9 Oral candidiasis B37.0 TARUN (acute kidney injury) N17.9
[2022-06-11] MEDS ORDERED: Nursing to Pharmacy Communication SCH (17:15)
[2022-06-11] MEDS: PRAZOSIN HCL 1 MG CAP PO SCH (21:41)
[2022-06-11] MEDS: traZODone HCL 50 MG TAB PO SCH (21:46)
[2022-06-11 22:13] LABS: Appearance Urine Clear (Clear); Bilirubin Urine Negative (Negative); Blood Urine Negative (Negative); Color Urine Yellow; Glucose Urine UA Negative (Negative); Ketones Urine Negative (Negative); Leukocyte Esterase Urine Negative (Negative); Nitrite Urine Negative (Negative); Protein Urine Negative (Negative); Specific Gravity Urine 1.011 (1.000-1.030); Urobilinogen Urine Negative (Negative); pH Urine 6.5 (4.5-7.5)
[2022-06-12 07:34] LABS: Hematocrit (blood only) 25.8 % (42.0-52.0); Hemoglobin 7.8 g/dl (14.0-18.0); Mean Corpuscular Hemoglobin 29.2 pg (25.0-34.0); Mean Corpuscular Hgb Conc 30.2 g/dL (32.0-36.0); Mean Corpuscular Volume 96.6 fL (80.0-100.0); Mean Platelet Volume 10.8 fL (9.4-12.4); Platelet Count 136 K/uL (130-400); RDW Standard Deviation 60.4 fL (36.4-46.3); Red Blood Count 2.67 M/uL (4.70-6.10); White Blood Count 2.33 K/ul (4.8-10.8)
[2022-06-12 07:54] LABS: BUN Creatinine Ratio 20.2 (10-20); Calcium 8.5 mg/dl (8.6-10.3); Creatinine Clr Calc Pharmacy 70.9 ml/min; Est GFR (African American) 96.9 ml/min; Est GFR (Non-African American) 83.6 ml/min; Potassium 3.9 mmol/L (3.5-5.1)
[2022-06-12] MEDS: FORMOTEROL 20 MCG/2 ML VIAL INH SCH ×2 (08:10→20:00)
[2022-06-12] MEDS: BUDESONIDE 0.5 MG/2 ML VIAL (PULMICORT) NEB SCH ×2 (08:10→20:00)
--- NOTE | 2022-06-12 09:12 | Hospitalist Progress Note ---
Date of Service June 12, 2022 Assessment & Plan (1) Acute respiratory failure with hypoxia: Plan: + Covid Awaiting Infection control to d/c isolation Continue incentive spirometer, flutter valve, mucinex Finished Remdisivir and decadron Patient improving Duonebs to as needed. Asked CM to try and get the different headgear for his home CPAP/promote compliance ([facility] is [facility] mask to [facility]'s home) Continue mucinex BID prn Currently on RA 92%, use BiPAP HS will need PFTs/NIOX testing in follow up - Patient prefers to have testing through the [place] system CM aware Will get a 2 step prior to discharge D/C to [facility] (after 10 days past + test 06/01/22)- Per CM Bed available Monday (2) COVID-19: Plan: Unclear duration of symptoms but given acute lymphopenia suspect he is in acute phases -- does report he has been feeling ill for about 3 weeks as above. Vaccinated but never + for COVID in the past. Continue decadron IV, finished remdesivir, pulmonary toilet as above Can consult pulm if needed/worsening Maintain isolation precautions, O2 as needed to maintain sats Will get a 2 step prior to discharge to [facility] (3) Anemia: Plan: appears hgb lower than baseline levels, no significant IVF on admit but did get several mag of IV magnesium Checked iron studies/B12/folate for completeness, fecal occult next bowel movement and continue PPI BID as above for esophagitis Hgb 7.8 and overall stable Fecal occult pending when able to collect. Iron studies w/o significant SARAH, B12/folate def Discussed blood count drop w/ hematology, rec holding hydroxyurea (doesn't take on weekends) and monitoring blood counts, make sure on DVT proph (on eliquis 5mg BID) Per Dr Joy, once blood counts stabilized, nevin after a week or so, may want to consider resuming,(possibly resume hydroxyurea Monday06/13/22) especially if platelets are starting to climb anywhere above 600,000 (Platelet4/15 - 136,000) - patient does have many listed side effects from such. Discussed w/ patient/ and [facility] for [facility] discussions regarding continuing this medication/dosing adjustments given myelosuppressive side effects Continue to monitor CBC, BMP and Mg in AM (4) Ileus: Plan: Resolved Tolerating low fiber diet, encouraged ambulation (PT/OT) Bowel regimen - Miralax 17 gm scheduled Monitor for any worsening -- no vomiting. reflux sx controlled w/ ordered meds for esophagitis w/ PPI BID (5) Esophagitis: Plan: Main reason he came to ER ?secondary to Keflex Gastritis/esophagitis on CTAP, now w/ possible ileus Protonix 40mg BID GI evaluated and signed off. Oral candidiasis improving on exam - started treatment with Diflucan 06/06/22 (6) UTI (urinary tract infection): Plan: Diagnosed as outpatient, however [facility] and appears culture cancelled due to discoloration from Azo Repeat Ua/cx NEGATIVE, but had been on Keflex. Given Rocephin IV x 3 days, discontinued further - denied any burning w/ urination Monitor for any fevers/further symptoms Appears also has BPH, on finasteride at baseline 06/10 - Patient stated was unable to urinate bladder scan and send U/A C&S - with diphtheroids, gram +cocci (7) Hypomagnesemia: Plan: Magnesium level 1.2 on admit, IV replacement ordered Continue mag ox 400mg Mg improved and stable (8) Hypokalemia: Plan: K 3.0 on admission, given 20meq. Note on lasix 20mg daily at home and not on oral K supplementation (may need to be on something at d/c) K improved and has remained stable and normal (9) Paroxysmal atrial fibrillation: Plan: Currently in NSR No complaints of chest pain Anticoagulation with Eliquis No palpitations/lightheaded reported --> EKG for any symptoms Keep Mag ~2, K~4 as above (10) VIK on CPAP: Plan: BiPAP HS as able to tolerate - refused x 2 evening on admit, discussed w/ /patient and he was agreeable last evening CM checked and [facility] is [facility] to patient's home, patient advised (11) PTSD (post-traumatic stress disorder): Plan: Do not wake patient by touching, 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) Continue sertraline, prazosin, bupropion Mood stable at present (12) Nephrolithiasis: Plan: noted 3mm nonobstructing calculi Alexandrea bowen, mild circumferential urinary bladder wall thickening prior following w/ urology, BPH continue finasteride, no flank pain reported at present, abx for UTI as above started PO abx MANAGER QUANTITATIVE for burning w/ urination reported If any issues w/ voiding, bladder scan as needed, consult urology if needed (13) Vitamin D deficiency: Plan: checked given prior old rib fractures/chronic kidney disease and prior lows and not on oral supplementation (also hx kidney stones reported) Vit D level reviewed and LOW <7 - ergocalciferol scheduled weekly and will need rx at d/c and repeat levels w/ [facility]CP[facility] (14) Oral candidiasis: Plan: treated with diflucan 200mg day 1 then 100mg daily Discussed need to rinse mouth after inhalers/nebulizer treatments Plan VTE Prophylaxis - Eliquis while inpatient PT/OT evaluating Patient's agreed to have patient discharged to a rehab facility upon discharge ([facility], but need to wait 10 days from + Covid test 06/01/22) per CM Bed available Monday Admission and Anticipated Discharge Date Admission Date: June 01, 2022 Subjective evaluated patient this morning, he was sleeping but awoke to his name. He was alert and oriented x 2. He denied any chest pain, SOB or cough. He tells me he had a BM yesterday. Review of Systems Review of Systems: Patient denies any chest pain, SOB, dyspnea, nausea, vomiting, all other ROS negative unless stated + above. He states he has a mild sore throat when swallowing but denies any dysphagia. Physical Exam Constitutional: WD/WN, vitals as above Neck: trachea midline, no thyromegaly Respiratory: normal respiratory effort; no respiratory distress and no labored breathing Auscultation: lungs clear to auscultation bilaterally; no crackles, no rales and no rhonchi Cardiovascular: Rate/Rhythm: regular rate and regular rhythm Heart Sounds: + murmur Extremities: no calf tenderness and no edema Gastrointestinal (Abdomen): normal bowel sounds, soft, nontender, no hepatosplenomegaly Psychiatric: Orientation: alert, oriented to person, oriented to place and cooperative Results & Data Results & Data Vital Signs (Past 12 Hours) Vital Signs Temp Pulse Resp BP Pulse Ox O2 Del Method 06/12/22 08:10 64 18 92 Room Air 06/12/22 07:40 36.3 C L 63 16 150/85 H 94 Room Air 06/11/22 23:00 36.7 C 71 20 157/81 H 94 Room Air Laboratory Results Abnormal lab results 06/12/22 06/12/22 Range/Units 07:02 07:02 WBC 2.33 L (4.8-10.8) K/ul RBC 2.67 L (4.70-6.10) M/uL Hgb 7.8 L (14.0-18.0) g/dl Hct 25.8 L (42.0-52.0) % MCHC 30.2 L (32.0-36.0) g/dL RDW Std Deviation 60.4 H (36.4-46.3) fL RDW Coeff of Hector 17.0 H (11.5-14.5) % BUN/Creatinine Ratio 20.2 H (10-20) Calcium 8.5 L (8.6-10.3) mg/dl PG Care Time/CCT Total # of Minutes Spent Total Time Spent with Patient: Total time spent is greater than 50% in coordination of care (as documented) at patient's floor/unit and/or counseling patient: Coding Level of Care Code 18033 SUB INP/OBS CARE 03/23MIN Diagnoses Acute respiratory failure with hypoxia J96.01 COVID-19 U07.1 Anemia D64.9 Ileus K56.7 Esophagitis K20.90 UTI (urinary tract infection) N39.0 Hypomagnesemia E83.42 Hypokalemia E87.6 Paroxysmal atrial fibrillation I48.0 VIK on CPAP G47.33; Z99.89 PTSD (post-traumatic stress disorder) F43.10 Nephrolithiasis N20.0 Vitamin D deficiency E55.9 Oral candidiasis B37.0
[2022-06-12] MEDS: busPIRone 7.5 MG TAB PO SCH ×3 (09:40→21:35)
[2022-06-12] MEDS: PANTOprazole 40 MG TAB PO SCH ×2 (09:40→21:36)
[2022-06-12] MEDS: CYCLOBENZAPRINE HCL 10 MG TAB PO SCH ×2 (09:41→21:36)
[2022-06-12] MEDS: APIXABAN 5 MG TABLET PO SCH ×2 (09:41→21:40)
[2022-06-12] MEDS: SERTRALINE HCL 100 MG TABLET PO SCH ×2 (09:41→21:40)
[2022-06-12] MEDS: FLUCONAZOLE 100 MG TAB PO SCH (09:42)
[2022-06-12] MEDS: MONTELUKAST SODIUM 10 MG TABLET PO SCH (09:42)
[2022-06-12] MEDS: guaiFENesin 600 MG TABCR PO SCH ×2 (09:42→21:40)
[2022-06-12] MEDS: MEMANTINE HCL 5 MG TAB PO SCH (09:42)
[2022-06-12] MEDS: FINASTERIDE 5 MG TAB PO SCH (09:42)
[2022-06-12] MEDS: lisinopril 5 MG TAB PO SCH (09:43)
[2022-06-12] MEDS: FUROSEMIDE 20 MG TAB PO SCH (09:43)
[2022-06-12] MEDS: DOCUSATE SODIUM/SENNA 50/8.6MG TAB PO SCH (09:43)
[2022-06-12] MEDS: buPROPion XL 300 MG TABCR PO SCH (09:43)
[2022-06-12] MEDS: MAGNESIUM OXIDE 400 MG TAB PO SCH (09:44)
[2022-06-12] MEDS: ATORVASTATIN 10 MG TAB PO SCH (09:44)
[2022-06-12] MEDS: ERGOCALCIFEROL 50,000 UNITS 1250 MCG CAP PO SCH (09:44)
[2022-06-12] MEDS: CARBIDOPA/LEVODOPA 25/100MG TAB PO SCH ×3 (09:45→21:38)
[2022-06-12] MEDS: POLYETHYLENE (MIRALAX) 17 GM PACK PO SCH (09:47)
[2022-06-12] MEDS: PREGABALIN 150 MG CAP PO SCH ×2 (09:59→21:35)
[2022-06-12] MEDS: traZODone HCL 50 MG TAB PO SCH (21:36)
[2022-06-12] MEDS: PRAZOSIN HCL 1 MG CAP PO SCH (21:37)
[2022-06-13] MEDS: FORMOTEROL 20 MCG/2 ML VIAL INH SCH (07:41)
[2022-06-13] MEDS: BUDESONIDE 0.5 MG/2 ML VIAL (PULMICORT) NEB SCH (07:42)
[2022-06-13] MEDS: FUROSEMIDE 20 MG TAB PO SCH (09:11)
[2022-06-13] MEDS: DOCUSATE SODIUM/SENNA 50/8.6MG TAB PO SCH (09:11)
[2022-06-13] MEDS: MEMANTINE HCL 5 MG TAB PO SCH (09:11)
[2022-06-13] MEDS: busPIRone 7.5 MG TAB PO SCH ×2 (09:11→13:02)
[2022-06-13] MEDS: ATORVASTATIN 10 MG TAB PO SCH (09:11)
[2022-06-13] MEDS: CYCLOBENZAPRINE HCL 10 MG TAB PO SCH (09:11)
[2022-06-13] MEDS: FINASTERIDE 5 MG TAB PO SCH (09:11)
[2022-06-13] MEDS: CARBIDOPA/LEVODOPA 25/100MG TAB PO SCH ×2 (09:11→13:01)
[2022-06-13] MEDS: buPROPion XL 300 MG TABCR PO SCH (09:11)
[2022-06-13] MEDS: APIXABAN 5 MG TABLET PO SCH (09:11)
[2022-06-13] MEDS: FLUCONAZOLE 100 MG TAB PO SCH (09:11)
[2022-06-13] MEDS: MONTELUKAST SODIUM 10 MG TABLET PO SCH (09:12)
[2022-06-13] MEDS: POLYETHYLENE (MIRALAX) 17 GM PACK PO SCH (09:12)
[2022-06-13] MEDS: guaiFENesin 600 MG TABCR PO SCH (09:12)
[2022-06-13] MEDS: MAGNESIUM OXIDE 400 MG TAB PO SCH (09:12)
[2022-06-13] MEDS: SERTRALINE HCL 100 MG TABLET PO SCH (09:12)
[2022-06-13] MEDS: lisinopril 5 MG TAB PO SCH (09:12)
[2022-06-13] MEDS: PANTOprazole 40 MG TAB PO SCH (09:12)
[2022-06-13] MEDS: PREGABALIN 150 MG CAP PO SCH (09:12)
--- NOTE | 2022-06-13 12:29 | Discharge Summary ---
Date of Service June 13, 2022 Admission HPI Per Admitting Provider Addison De Los Santos is a 76 year old male with COPD who presents to the ER with epigastric pain for the last week. No dysphagia, odynophagia, nausea, vomiting, hematemesis or diarrhea. Associated reduced appetite and not eating or drinking as much as usual. He reports taste has been reduced ever since he was diagnosed with influenza in February. Epigastric pain started after Keflex was started on Monday for a urinary tract infection. UTI was diagnosed on the basis of positive urine culture at the [facility] in setting of hallucinations; no specific urinary symptoms. Associated chills this week. In the ER SARS-COV-2 PCR positive. He denies any acute nasal congestion, sinus pain, shortness of breath, cough, chest pain, abdominal pain, diarrhea. He does note increased difficulty in coughing up mucus. Principal Diagnosis COVID-19 with acute hypoxic respiratory failure Discharge Exam GENERAL: 77 yo Well-developed, well-nourished WM. NAD. LUNGS: nonlabored, fine crackles in right base otherwise clear CARDIOVASCULAR: Regular rate and rhythm. EXTREMITIES: s/p b/l BKAs Discharge Data Allergies Allergy/AdvReac Type Severity Reaction Status Date / Time ibuprofen Allergy Intermediate HIVES Verified 06/01/22 16:39 Consultations 06/01/22 16:18 ED Decision to Admit Stat 06/03/22 14:06 Consult Gastroenterology Routine Ordered Studies 06/12/22 07:02 06/12/22 07:02 Abdomen/Pelvis CT 06/01/22 14:[address] WITH IV CONTRAST CT DOSE: 1398.50 mGy.cm HISTORY: Acute left lower quadrant abdominal pain llq pain TECHNIQUE: Multiaxial CT images of the abdomen and pelvis were performed follow ing the IV administration of 85 cc of Optiray, A dose lowering technique was utilized adhering to the principles of ALARA. COMPARISON STUDY: CTA runoff 06/27/2019 FINDINGS: Moderate cardiomegaly with moderate coronary artery calcifications. Trace pericardial effusion. Mild bibasilar atelectasis. No pneumatosis or pneumoperitoneum. Spleen is enlarged measuring up to 15.9 cm in length. Mild to moderate pancreatic atrophy. Unremarkable left adrenal gland. 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 Unremarkable gallbladder. Liver is within normal limits. Patent portal vein. Mild cortical thinning of the kidneys with nonspecific bilateral perinephric stranding. 4 mm nonobstructing calculus of the interpolar right kidney. No ureteral calculi or hydronephrosis. There is mild circumferential urinary bladder wall thickening. Prostate is upper limits of normal in size. Atherosclerosis of the aorta without aneurysm. No lymphadenopathy. Mild wall thickening of the fluid-filled distal esophagus with trace adjacent inflammatory stranding. Postoperative changes suggestive of partial sigmoid colo n resection with colocolonic anastomosis. Soft tissue thickening within the lower lumbar prevertebral tissues is likely on a postoperative basis with adjacent surgical clips. Normal appendix. Unremarkable soft tissues. No acute fracture. Degenerative changes of the spine, pelvis and hips. Discectomy with posterior interbody adelso and screw fusion at L5-S1. The hardware appears intact. IMPRESSION: 1. Fluid-filled distal esophagus with mild wall thickening and adjacent inflammatory stranding. Findings are suspicious for esophagitis. 2. No bowel obstruction or bowel wall thickening. 3. Partial sigmoid colon resection with colocolonic anastomosis. 4. Moderate splenomegaly. 5. Right nephrolithiasis. ACT 112: Negative or not required by law. The above report was generated using voice recognition software. It may contain grammatical, syntax or spelling errors. Electronically signed by: Natanael Valladares M.D. 06/01/2022 4:06 PM Chest X-Ray 06/01/22 14:20 XR chest 1V portable HISTORY: 76 years-old Male sob acute shortness of breath with confusion COMPARISON: Chest radiograph 03/16/2022 TECHNIQUE: AP view of the chest FINDINGS: Cardiac silhouette is enlarged. Unchanged right hemidiaphragmatic elevation. No pneumothorax, pleural effusion, airspace consolidation or pulmonary edema. Bones appear grossly intact. IMPRESSION: Cardiomegaly without acute process. ACT 112: Negative or not required by law. The above report was generated using voice recognition software. It may contain grammatical, syntax or spelling errors. Electronically signed by: Natanael Valladares M.D. 06/01/2022 2:51 PM Chest X-Ray 06/03/22 08:46 XR chest 1V portable CLINICAL HISTORY: f/u, eval pulm edema COMPARISON STUDY: Chest radiograph June 01, 2022. FINDINGS: There is no pneumothorax or pleural effusion. Patient is rotated. Cardiomegaly is unchanged. Mediastinal contours are stable. There is no consolid ation to suggest pneumonia. There is no evidence for pulmonary edema. Linear right infrahilar opacity favors atelectasis. IMPRESSION: No acute cardiopulmonary findings. Cardiomegaly. No evidence for pulmonary edema. ACT 112: Negative or not required by law. Electronically signed by: Diego Jim M.D. 06/03/2022 10:59 AM KUB X-Ray 06/03/22 14:02 KUB HISTORY: Generalized abdominal pain, reflux COMPARISON: Abdomen and pelvis CT 06/01/2022. FINDINGS: Borderline dilated gas-filled loops of large and small bowel seen within the abdomen. This may represent a mild ileus. No evidence for a bowel obstruction. There is also mild gaseous distention of the stomach. The spleen remains enlarged. Posterior fusion hardware at L5-S1 again noted. Mild vascular calcifications are present. Old, healed left lower rib fractures. Right-sided nephrolithiasis. No ureteral calculi. No pneumoperitoneum or pneumatosis. IMPRESSION: 1. Borderline dilated gas-filled loops of large and small bowel seen within the abdomen. This may represent a mild ileus. No evidence for a bowel obstruction. 2. Right-sided nephrolithiasis again noted. ACT 112: Negative or not required by law. Electronically signed by: Will Barry M.D. 06/03/2022 3:27 PM KUB X-Ray 06/04/22 06:00 KUB CLINICAL HISTORY: f/u ileus COMPARISON STUDY: CT of the abdomen and pelvis June 01, 2022. KUB June 03, 2022. FINDINGS: Postoperative findings within the spine are incidentally noted. A loop of dilated small bowel within the left mid abdomen measures up to 5 cm in caliber. There is no significant colonic dilatation. Small bowel dilatation has slightly increased. IMPRESSION: Slight increase in small bowel dilatation. This may reflect a mild ileus. Although within the differential, a bowel obstruction is considered less likely. ACT 112: Negative or not required by law. Electronically signed by: Diego Jim M.D. 06/04/2022 12:55 PM KUB X-Ray 06/05/22 07:00 KUB CLINICAL HISTORY: f/u ileus COMPARISON STUDY: CT of the abdomen and pelvis June 01, 2022. KUB June 04, 2022. FINDINGS: Postoperative findings within the spine are incidentally noted. Mild small bowel dilatation has decreased since prior examination. There is no evidence for a bowel obstruction. There is scattered colonic gas. IMPRESSION: Interval decrease in small bowel dilatation. The findings favor an improving ileus. No evidence for a bowel obstruction. ACT 112: Negative or not required by law. Electronically signed by: Diego Jim M.D. 06/05/2022 7:45 AM Chest X-Ray 06/06/22 07:00 XR chest 1V portable HISTORY: 77 years-old Male covid, f/u wheezing acute cough with wheezing COMPARISON: 06/03/2022 TECHNIQUE: AP view of the chest FINDINGS: Cardiomediastinal and hilar silhouettes are within normal limits. No pneumothorax, pleural effusion, airspace consolidation or pulmonary edema. Bones of the chest appear grossly intact with degenerative changes of the shoulders and spine. IMPRESSION: No acute process. ACT 112: Negative or not required by law. The above report was generated using voice recognition software. It may contain grammatical, syntax or spelling errors. Electronically signed by: Natanael Valladares M.D. 06/06/2022 7:47 AM Hospital Course (1) Acute respiratory failure with hypoxia: 77 yo M hospitalized with acute respiratory failure with hypoxia secondary to Covid - Placed in covid precautions - treated with 5 day course of Remdesivir and 10 day course of Decadron - Provided incentive spirometer, flutter valve, mucinex - Duonebs QIDR and q2 prn - Supplemental oxgyen provided - would benefit from PFTs/NIOX testing in follow up - [facility] CM aware D/C to [facility] (after 10 days past + test 06/01/22)- Per Bed available Monday (2) COVID-19: ? duration of symptoms but given lymphopenia suspect he is in acute phase - felt ill for about 3 weeks [employer]. Vaccinated but never + for COVID in the past. - Treated with Remdesivir, Decadron, O2, nebs - COVID precautions (3) Anemia: Acute on chronic - hgb lower than baseline, no significant IVF on admit but did get several mag of IV magnesium - Checked iron studies, no significant SARAH, B12/folate deferred - Discussed blood count drop w/ hematology, rec holding hydroxyurea and monitoring blood counts - Per Dr Joy, once H/H stable, can consider resuming, (possibly resume hydroxyurea Monday06/13/22) especially if platelets are starting to climb anywhere above 600,000 (Platelet 06/12 - 136,000) - Discussed w/ patient/ and [facility]'d [facility] discussions regarding continuing this medication/dosing adjustments given myelosuppressive side effects - Will resume Hydroxyurea at d/c - f/u with established specialists as outpatient (4) Esophagitis: - Main reason he came to ER ?secondary to Keflex - Gastritis/esophagitis on CTAP, now w/ possible ileus - Increased Protonix to 40mg BID - GI evaluated and signed off. - Oral candidiasis noted on exam - started treatment with Diflucan 06/06/22 (will treat x 14 days) (5) UTI (urinary tract infection): - Diagnosed as outpatient, however [facility] records obtained and appears culture cancelled due to discoloration from Azo - Repeat Ua/cx NEGATIVE, but had been on Keflex. - Given Rocephin IV x 3 days, discontinued further - denied any burning w/ urination - Pt does have BPH, takes Finasteride, on 06/10 (6) Hypomagnesemia: - Magnesium level 1.2 on admit, IV replacement ordered and mag level normalized - started on oral supplementation, will continue mag ox 400mg (7) Hypokalemia: - K 3.0 on admission, given 20meq of KCl for replacement. - Note on lasix 20mg daily at home and not on oral K supplementation (may need to be on something at d/c) - K improved and has remained stable and normal (8) Paroxysmal atrial fibrillation: Currently in NSR - No complaints of chest pain - Continue anticoagulation with Eliquis (9) VIK on CPAP: - BiPAP HS as able to tolerate - refused x 2 evening on admit, discussed w/ /patient and he was agreeable last evening - CM checked and [facility] to patient's home, patient advised (10) PTSD (post-traumatic stress disorder): - Continue sertraline, prazosin, bupropion (11) Vitamin D deficiency: - checked given prior old rib fractures/chronic kidney disease and prior lows and not on oral supplementation (also hx kidney stones reported) - Vit D level reviewed and LOW <7 - ergocalciferol scheduled weekly and will need rx at d/c and repeat levels w/ PCP/[facility] in 3 mo. Plan Patient is medically and hemodynamically stable for discharge to SNF for rehab today. Plan has been d/w Dr. Clancy. Advise PCP/[facility] follow up for chronic comorbidities. Total Time Total Time Spent Total Time Spent (In Minutes): >30 minutes Discharge Plan Discharge Items Patient Disposition: Transfer Detention Fac Reason For Visit: COVID, HYPOXIA Discharge Diagnosis: covid-19 infection with low oxygen Activity: Resume your previous activity Non-emergency contact: Primary Care Provider Call non-emergency contact if: you have any medication questions and your symptoms worsen Follow-up/Referrals: [facility] [Primary Care Provider] - (CALL PCP TO SCHEDULE A HOSPITAL FOLLOW UP VISIT 7-10 DAYS.) Diet: Regular Addtl Attending Provider Instructions: You were hospitalized due to covid-19 infection with low oxygen levels. You responded well to treatment which included Remdesivir (an antiviral medication) and intravenous steroids. You were provided oxygen as well as breathing treatments. Unfortunately, the tool of being in the hospital this long made you weak. Therefore, therapy recommended that you go to rehab. A bed is available at [facility] for you and you will be transported there today (06/13/22). Please follow up with hematology (Dr. Joy) regarding your anemia management. Complete course of Diflucan for thrush (yeast/fungal infection) in the back of your mouth/throat. Follow up with family doctor upon discharge from rehab. Pending Studies at Discharge: No Stand-Alone Forms: My [facility] Skilled Items Patient informed of condition?: Yes DNR: Yes Discharge Level of Care: Skilled Communicable Disease: No (tested positive for COVID-19, completed 10 day quarantine/isolation) Discharge Prognosis: Stable Lines: None Urinary Catheter: No Medications and DC Order Prescriptions: New fluconazole [Diflucan] 100 mg Tablet 100 mg PO QAM Qty: 7 0RF ergocalciferol (vitamin D2) 1,250 mcg (50,000 unit) Capsule 50,000 unit PO Q7D@0800 Qty: 4 0RF Continued cyclobenzaprine 10 mg Tablet 10 mg PO BID buspirone 5 mg Tablet 7.5 mg PO TID hydroxyurea 500 mg Capsule 1,000 mg PO DIRECTED Rx Instructions: take 1,000 mg bid on week days. mon-fri atorvastatin 10 mg Tablet 10 mg PO DAILY sertraline 100 mg Tablet 100 mg PO BID prazosin 5 mg Capsule 5 mg PO HS trazodone 150 mg Tablet 150 mg PO HS montelukast 10 mg Tablet 10 mg PO DAILY lisinopril 5 mg Tablet 5 mg PO DAILY furosemide 20 mg Tablet 20 mg PO DAILY carbidopa-levodopa 25-100 mg Tablet 2 tab PO [facility] carbidopa-levodopa 25-100 mg Tablet 1 tab PO .DAILY @ NOON finasteride 5 mg Tablet 5 mg PO DAILY bupropion HCl 300 mg Tablet Extended Release 24 Hr 300 mg PO QAM memantine 5 mg Tablet 5 mg PO DAILY metoprolol tartrate 25 mg Tablet 12.5 mg PO BID Eliquis 5 mg Tablet 5 mg PO BID pregabalin 150 mg Capsule 150 mg PO BID albuterol sulfate 90 mcg/actuation Hfa Aerosol Inhaler 2 puff INHALATION Q4 PRN (Reason: Shortness Of Breath Or Wheezing) Spiriva with HandiHaler 18 mcg Capsule, W/Inhalation Device 1 cap INHALATION DAILY PRN (Reason: Shortness Of Breath Or Wheezing) Rx Instructions: puncture 1 cap using device; one dose = 2 inhalations budesonide-formoterol 160-4.5 mcg/actuation Hfa Aerosol Inhaler 2 puff INHALATION BID PRN (Reason: Shortness Of Breath Or Wheezing) Changed pantoprazole 40 mg Tablet,Delayed Release (Dr/Ec) 40 mg PO BID Qty: 60 0RF Discontinued cephalexin [Keflex] 500 mg Capsule 500 mg PO BID Discharge Orders: Discharge Order (Routine); Ordered 06/13/22 Ordered By: Rita Holly Admission Data Admit Date/Time: 06/01/22 17:48 Attending Provider: Wilfredo Clancy Admit Provider: Toño Harding Primary Care Provider: [facility] Other Providers: Toño Harding ; [facility] ; Kyler Hogue ; [facility] [place] ; Wilfredo Clancy Coding Level of Care Code 53362 INP/OBS DISCH >30 MIN Diagnoses Acute respiratory failure with hypoxia J96.01 COVID-19 U07.1 Anemia D64.9 Esophagitis K20.90 UTI (urinary tract infection) N39.0 Hypomagnesemia E83.42 Hypokalemia E87.6 Paroxysmal atrial fibrillation I48.0 VIK on CPAP G47.33; Z99.89 PTSD (post-traumatic stress disorder) F43.10 Vitamin D deficiency E55.9
== END 2022-06-13 15:23 | DRG 177 ==
LOC: ED 14:07 → 3N 17:48 → SUATTDRO 17:48 → 3N 20:15

== ENCOUNTER 2022-06-22 09:58 | Inpatient (IN) ==
[2022-06-22] MEDS ORDERED: CEFEPIME 2,000 MG/20 ML VIAL IV STA (10:16)
--- NOTE | 2022-06-22 10:25 | Emergency Department Note ---
Impression & Plan Acute confusion, Anemia, Somnolence, Sinusitis, Hematuria ED Provider Note NAME: EDWARD RAMIREZ AGE: 77 SEX: M : 1945 ARRIVES VIA: Ambulance INFORMANT: [Patient][ems, family] ED PROVIDER(S): [Joel Berkowitz MD] CHIEF COMPLAINT: Altered mental state HISTORY OF PRESENT ILLNESS: The patient is a 77-year-old male who is currently at [facility] for rehab. He was discharged from our hospital 9 days ago after a COVID-19 diagnosis. As per his family, a few days ago, he had a Witt catheter placed because he was not able to urinate on his own. Since the catheter placement, the urine has been bloody. The patient has had a few days of some increased confusion but was markedly worse today as per staff, he was sent for evaluation. Patient currently denies pain but is a very poor historian. He seems quite sleepy. PMHx/PSHx: See Below SOCIAL HISTORY: See Below. PHYSICAL EXAM: GENERAL: Patient is in no acute distress. HEENT: No acute trauma, normocephalic atraumatic, mucous membranes dry, no nasal congestion. NECK: No stridor, no adenopathy, no meningismus, trachea is midline. LUNGS: Clear to auscultation bilaterally when listening anterior, no wheeze, no rhonchi, breath sounds equal. HEART: Somewhat irregular rhythm, normal rate, no obvious murmur. ABDOMEN: Soft, nontender, bowel sounds positive, no peritonitis. Witt catheter is in place with some bloody urine in the Witt bag. EXTREMITIES: No cyanosis. Bilateral below-knee amputations. NEUROLOGIC: Somnolent, wakes to voice, moves all extremities. Oriented to person. SKIN: No rash, no jaundice, no diaphoresis. DIFFERENTIAL DIAGNOSIS: Sepsis or bacteremia, liver or renal failure, dehydration, electrolyte imbalance, UTI, pneumonia, intracranial bleeding, CO2 retention, among others. EMERGENCY DEPARTMENT COURSE/PROCEDURES: Prior/Outside records reviewed: EMS notes, recent discharge summary. ECG per my interpretation: Indication was altered mental state. The ECG shows a normal sinus rhythm with a rate of 60. There is some diffuse nonspecific ST change. There is no ST elevation, no PVCs. The QTc is 446. Continuous Cardiac Monitoring per my interpretation: An order was placed for continuous cardiac monitoring. The monitor shows a rate of 69 with normal sinus rhythm. Critical Care Note: I have personally spent 52 minutes of critical care time in the direct management of this patient. This includes bedside care, interpretation of diagnostic studies, and testing, discussion with consultants, patient, and family members, and other required patient management activities. This 52 minutes is in excess of all separately billable procedures. MEDICAL DECISION MAKING: There is no leukocytosis. The patient is anemic but this appears at baseline looking back at recent testing. There is a normal platelet count. INR is slightly elevated at 1.2. ABG does not show acidosis or significant CO2 retention. Ammonia level is not elevated. No significant electrolyte abnormality or renal failure. Lactic acid level is not elevated making severe sepsis less likely. No concerning liver enzyme elevation. Procalcitonin level is not elevated. ECG shows a normal sinus rhythm, no ischemia. Cardiac enzyme testing x1 is not consistent with acute cardiac injury. Urinalysis shows hematuria, no obvious infection. Respiratory bio fire was completely negative. Chest film did not show pneumonia or CHF. Brain CT did not show any acute bleed or mass effect. Sinusitis was seen. On exam, the patient was quite somnolent, he would awaken to voice but then fall back to sleep. He appeared somewhat dehydrated. The patient received IV saline, 1 L. He was given IV cefepime as empiric antibiotic coverage. At this point, the cause for the somnolence is not completely clear. I suppose his sinusitis could be responsible. He is currently at [facility] for rehab, he cannot participate in rehab in this condition. Further care/observation is required, he will be hospitalized. I spoke with the family and the patient, I spoke with case management, the on- call hospitalist was consulted. DISPOSITION: Patient's presentation and findings warrant a hospital stay. Past Med/Surg History Medical History Asthma BPH (benign prostatic hyperplasia) Bronchiolitis due to influenza virus Chronic bronchitis Closed fracture dislocation of ankle DDD (degenerative disc disease) Diverticulitis HTN (hypertension) Hypoxemia Intractable back pain MRSA (methicillin resistant Staphylococcus aureus) negative nasal swab on 06/24/15 and 10/05/18 Obesity Open wound of ankle with complication VIK on CPAP Noncompliant Prolonged QT interval WCq=572 EKG 05/25/19 PTSD (post-traumatic stress disorder) do not wake patient by touching, wake patient by saying name Surgical History History of back surgery back surgery x3 at [facility] History of partial colectomy S/P hernia repair Status post ORIF of fracture of ankle 05/26/[address] Farhan DIEZ with sedation. Family History Other Family history non-contributory Social History Smoking Status: Former smoker Tobacco Type: Smokeless Tobacco (Dip or Chew) Cigarettes Per Day: Uncertain.; Second Hand Exposure: No; Hx Alcohol Use: Yes Alcohol type: beer Hx Substance Use: No Preferred Language: Luxembourgish Communication Ability: Effective Communication Ability Comment: Pt is currently confused Eyeglass Fitter Required: No Beliefs That Will Affect Care: None marital status: Current Living Situation: Spouse Current Living Situation Comment: with wifr and grandson Feels Safe at Home: Yes Assistive Devices: Walker and Wheelchair Allergies Allergies Allergy/AdvReac Type Severity Reaction Status Date / Time ibuprofen Allergy Intermediate HIVES Verified 06/22/22 15:25 Home Meds Home Medications Medication Instructions Recorded Confirmed albuterol sulfate 90 mcg/actuation 2 puff inhalation Q4 PRN Shortness 03/12/22 0 06/01/22 aerosol inhaler Of Breath Or Wheezing apixaban 5 mg tablet (Eliquis) 5 mg PO BID 03/12/22 06/01/22 atorvastatin 10 mg tablet 10 mg PO DAILY 03/12/22 06/01/22 budesonide-formoterol HFA 160 2 puff inhalation BID PRN 03/12/22 06/01/22 mcg-4.5 mcg/actuation aerosol Shortness Of Breath Or Wheezing inhaler bupropion HCl 300 mg 24 hr tablet, 300 mg PO QAM 03/12/22 06/01/22 extended release buspirone 5 mg tablet 7.5 mg PO TID 03/12/22 06/01/22 carbidopa 25 mg-levodopa 100 mg 1 tab PO .DAILY @ NOON 03/12/22 06/01/22 tablet carbidopa 25 mg-levodopa 100 mg 2 tab PO AMHS 03/12/22 06/01/22 tablet cyclobenzaprine 10 mg tablet 10 mg PO BID 03/12/22 06/01/22 finasteride 5 mg tablet 5 mg PO DAILY 03/12/22 06/01/22 furosemide 20 mg tablet 20 mg PO DAILY 03/12/22 06/01/22 hydroxyurea 500 mg capsule 1,000 mg PO DIRECTED 03/12/22 06/01/22 lisinopril 5 mg tablet 5 mg PO DAILY 03/12/22 06/01/22 memantine 5 mg tablet 5 mg PO DAILY 03/12/22 06/01/22 metoprolol tartrate 25 mg tablet 12.5 mg PO BID 03/12/22 06/01/22 montelukast 10 mg tablet 10 mg PO DAILY 03/12/22 06/01/22 prazosin 5 mg capsule 5 mg PO HS 03/12/22 06/01/22 pregabalin 150 mg capsule 150 mg PO BID 03/12/22 06/01/22 sertraline 100 mg tablet 100 mg PO BID 03/12/22 06/01/22 tiotropium bromide 18 mcg capsule 1 cap inhalation DAILY PRN 03/12/22 06/01/22 with inhalation device (Spiriva Shortness Of Breath Or Wheezing with HandiHaler) trazodone 150 mg tablet 150 mg PO HS 03/12/22 06/01/22 Previous Rx's Medication Instructions Recorded ergocalciferol (vitamin D2) 1,250 50,000 unit PO Q7D@0800 #4 caps 06/13/22 mcg (50,000 unit) capsule fluconazole 100 mg tablet 100 mg PO QAM #7 tabs 06/13/22 (Diflucan) pantoprazole 40 mg tablet,delayed 40 mg PO BID #60 tabs 06/13/22 release Results & Data (ED) Vital Signs Vital Signs - 24 hr 06/22/22 10:06 06/22/22 10:13 06/22/22 10:16 Temperature 36.4 C L Temperature Source Oral Pulse Rate 61 69 Pulse Rate [Apical] Pulse Rate from SpO2 Sensor Pulse Rhythm [Apical] Respiratory Rate 18 Respiratory Effort / Characteristics Non-Labored Spontaneous Respiratory Depth Normal Respiratory Pattern Agonal Blood Pressure 121/66 Blood Pressure [Left Arm] Blood Pressure Mean 84 Blood Pressure Mean [Left Arm] Blood Pressure Position Sitting Pulse Oximetry 100 98 Oxygen Delivery Method Nasal Cannula Room Air Oxygen Flow Rate 3 Sepsis Recent Fever Within 48 Hours No Sepsis New/Unexplained Change in Mental Status N/A Sepsis Action Taken by Nursing No Action Required 06/22/22 11:11 06/22/22 10:06 06/22/22 10:10 Temperature Temperature Source Pulse Rate 60 60 Pulse Rate [Apical] 60 Pulse Rate from SpO2 Sensor 61 Pulse Rhythm [Apical] Respiratory Rate 18 17 15 Respiratory Effort / Characteristics Respiratory Depth Respiratory Pattern Blood Pressure Blood Pressure [Left Arm] 134/78 Blood Pressure Mean Blood Pressure Mean [Left Arm] 96 Blood Pressure Position Pulse Oximetry 96 99 Oxygen Delivery Method Nasal Cannula Oxygen Flow Rate Sepsis Recent Fever Within 48 Hours Sepsis New/Unexplained Change in Mental Status Sepsis Action Taken by Nursing 06/22/22 10:20 06/22/22 10:30 06/22/22 10:32 Temperature Temperature Source Pulse Rate 62 61 61 Pulse Rate [Apical] Pulse Rate from SpO2 Sensor 60 58 L 62 Pulse Rhythm [Apical] Respiratory Rate 17 19 17 Respiratory Effort / Characteristics Respiratory Depth Respiratory Pattern Blood Pressure Blood Pressure [Left Arm] Blood Pressure Mean Blood Pressure Mean [Left Arm] Blood Pressure Position Pulse Oximetry 98 92 100 Oxygen Delivery Method Oxygen Flow Rate Sepsis Recent Fever Within 48 Hours Sepsis New/Unexplained Change in Mental Status Sepsis Action Taken by Nursing 06/22/22 10:32 06/22/22 10:49 06/22/22 10:50 Temperature Temperature Source Pulse Rate 65 61 Pulse Rate [Apical] Pulse Rate from SpO2 Sensor 67 62 Pulse Rhythm [Apical] Respiratory Rate 19 16 Respiratory Effort / Characteristics Respiratory Depth Respiratory Pattern Blood Pressure 133/71 Blood Pressure [Left Arm] Blood Pressure Mean 91 Blood Pressure Mean [Left Arm] Blood Pressure Position Pulse Oximetry 98 93 Oxygen Delivery Method Oxygen Flow Rate Sepsis Recent Fever Within 48 Hours Sepsis New/Unexplained Change in Mental Status Sepsis Action Taken by Nursing 06/22/22 10:55 06/22/22 10:55 06/22/22 11:00 Temperature Temperature Source Pulse Rate 63 Pulse Rate [Apical] Pulse Rate from SpO2 Sensor 63 Pulse Rhythm [Apical] Respiratory Rate 18 Respiratory Effort / Characteristics Respiratory Depth Respiratory Pattern Blood Pressure 135/72 134/78 Blood Pressure [Left Arm] Blood Pressure Mean 93 96 Blood Pressure Mean [Left Arm] Blood Pressure Position Pulse Oximetry 97 Oxygen Delivery Method Oxygen Flow Rate Sepsis Recent Fever Within 48 Hours Sepsis New/Unexplained Change in Mental Status Sepsis Action Taken by Nursing 06/22/22 11:00 06/22/22 11:10 06/22/22 11:20 Temperature Temperature Source Pulse Rate 61 62 75 Pulse Rate [Apical] Pulse Rate from SpO2 Sensor 61 62 Pulse Rhythm [Apical] Respiratory Rate 15 20 21 Respiratory Effort / Characteristics Respiratory Depth Respiratory Pattern Blood Pressure Blood Pressure [Left Arm] Blood Pressure Mean Blood Pressure Mean [Left Arm] Blood Pressure Position Pulse Oximetry 95 97 Oxygen Delivery Method Oxygen Flow Rate Sepsis Recent Fever Within 48 Hours Sepsis New/Unexplained Change in Mental Status Sepsis Action Taken by Nursing 06/22/22 11:30 06/22/22 11:30 06/22/22 12:16 Temperature Temperature Source Pulse Rate 61 Pulse Rate [Apical] 62 Pulse Rate from SpO2 Sensor Pulse Rhythm [Apical] Respiratory Rate 20 18 Respiratory Effort / Characteristics Respiratory Depth Respiratory Pattern Blood Pressure 118/66 Blood Pressure [Left Arm] 118/57 L Blood Pressure Mean 83 Blood Pressure Mean [Left Arm] 77 Blood Pressure Position Pulse Oximetry 98 Oxygen Delivery Method Oxygen Flow Rate Sepsis Recent Fever Within 48 Hours Sepsis New/Unexplained Change in Mental Status Sepsis Action Taken by Nursing 06/22/22 12:30 06/22/22 12:47 06/22/22 14:17 Temperature Temperature Source Pulse Rate 55 L Pulse Rate [Apical] 63 61 Pulse Rate from SpO2 Sensor Pulse Rhythm [Apical] Respiratory Rate 18 18 Respiratory Effort / Characteristics Respiratory Depth Respiratory Pattern Blood Pressure Blood Pressure [Left Arm] 127/93 127/93 Blood Pressure Mean Blood Pressure Mean [Left Arm] 104 104 Blood Pressure Position Pulse Oximetry 98 100 Oxygen Delivery Method Nasal Cannula Nasal Cannula Oxygen Flow Rate Sepsis Recent Fever Within 48 Hours Sepsis New/Unexplained Change in Mental Status Sepsis Action Taken by Nursing 06/22/22 14:30 06/22/22 14:54 06/22/22 15:29 Temperature Temperature Source Pulse Rate Pulse Rate [Apical] 55 L 57 L 55 L Pulse Rate from SpO2 Sensor Pulse Rhythm [Apical] Regular Respiratory Rate 16 15 18 Respiratory Effort / Characteristics Respiratory Depth Normal Respiratory Pattern Blood Pressure Blood Pressure [Left Arm] 122/53 L 119/45 L 150/48 H Blood Pressure Mean Blood Pressure Mean [Left Arm] 76 69 82 Blood Pressure Position Pulse Oximetry 94 96 97 Oxygen Delivery Method Nasal Cannula Oxymask Nasal Cannula Oxygen Flow Rate 2 2 Sepsis Recent Fever Within 48 Hours Sepsis New/Unexplained Change in Mental Status Sepsis Action Taken by Snf Medications Current Medication List: was personally reviewed by me Laboratory Data Attestation: I reviewed the patient's lab results. 06/22/22 10:10 06/22/22 10:10 Lab Results 06/22/22 06/22/22 06/22/22 Range/Units 10:10 10:10 10:10 WBC 5.53 (4.8-10.8) K/ul RBC 3.02 L (4.70-6.10) M/uL Hgb 9.0 L (14.0-18.0) g/dl Hct 29.8 L (42.0-52.0) % MCV 98.7 (80.0-100.0) fL MCH 29.8 (25.0-34.0) pg MCHC 30.2 L (32.0-36.0) g/dL RDW Std Deviation 61.9 H (36.4-46.3) fL RDW Coeff of Hector 17.2 H (11.5-14.5) % Plt Count 218 (130-400) K/uL MPV 11.0 (9.4-12.4) fL Immature Gran % (Auto) 1.4 % Neut % (Auto) 80.5 % Lymph % (Auto) 11.4 % [place] % (Auto) 5.6 % Eos % (Auto) 0.9 % Baso % (Auto) 0.2 % Neut # (Auto) 4.45 (1.40-6.50) K/uL Lymph # (Auto) 0.63 L (1.2-3.4) K/uL [place] # (Auto) 0.31 (0.11-0.59) K/uL Eos # (Auto) 0.05 (0-0.50) K/uL Baso # (Auto) 0.01 (0-0.2) K/uL Immature Gran # (Auto) 0.08 (0.01-0.20) K/uL PT INR APTT PTT Ratio POC pH (7.35-7.45) POC pCO2 (35-46) mmHg POC pO2 (80-95) mmHg POC HCO3 (19-24) lars/L POC Total CO2 (24-31) mmol/L POC Base Excess (-9-1.8) lars/L ABG pH ABG pCO2 ABG pO2 ABG HCO3 POC ABG O2 Sat (90-95) % ABG O2 Saturation ABG Base Excess John Test Barometric Pressure Oxygen Given Sodium 139 (136-145) mmol/L Potassium 4.5 (3.5-5.1) mmol/L Chloride 102 (98-107) mmol/L Carbon Dioxide 31 (21-32) mmol/L Anion Gap 6 (3-11) BUN 16 (6-23) mg/dl Creatinine 1.12 (0.6-1.4) mg/dl Est Cr Clr Drug Dosing Not Reportable Est GFR ( Amer) 74.1 ml/min Est GFR (Non-Af Amer) 63.9 ml/min BUN/Creatinine Ratio 14.3 (10-20) Glucose 92 (70-99(Fasting)) mg/dl Lactate (0.4-2.0) mmol/L Calcium 9.3 (8.6-10.3) mg/dl Magnesium 1.9 (1.7-2.4) mg/dl Total Bilirubin 0.6 (0.2-1.0) mg/dl Direct Bilirubin 0.1 (0-0.2) mg/dl AST 10 L (13-39) U/L ALT < 3 L (7-52) U/L Alkaline Phosphatase 65 (34-104) U/L Ammonia (18-72) umol/L Troponin I High Sens 5.0 (0-20) pg/ml Total Protein 7.0 (6.0-8.3) gm/dl Albumin 3.8 (3.4-5.0) gm/dl Procalcitonin < 0.05 (0-0.5) ng/ml Urine Color Urine Appearance (Clear) Urine pH (4.5-7.5) Ur Specific [place] (1.000-1.030) Urine Protein (Negative) Urine Glucose (UA) (Negative) Urine Ketones (Negative) Urine Blood (Negative) Urine Nitrite (Negative) Urine Bilirubin (Negative) Urine Urobilinogen (Negative) Ur Leukocyte Esterase (Negative) Urine WBC (Auto) (0-5) /hpf Urine RBC (Auto) (0-4) /hpf U Hyaline Cast (Auto) (0-5) /lpf U Epithel Cells (Auto) (0-5) /lpf Urine Bacteria (Auto) (Negative) Ur Renal Epithelial Cell Adenovirus (PCR) (NotDetected) B. pertussis DNA (PCR) (NotDetected) B.parapertussis DNA PCR (NotDetected) C. pneumoniae DNA (PCR) (NotDetected) Coronavirus OC43 (PCR) (NotDetected) Coronavirus HKU1 (PCR) (NotDetected) Coronavirus 229E (PCR) (NotDetected) SARS-CoV-2 (PCR) (NotDetected) Coronavirus NL63 (PCR) (NotDetected) Human Metapneumovir PCR (NotDetected) Influenza Type A (PCR) (NotDetected) Influenza Type B (PCR) (NotDetected) M. pneumoniae (PCR) (NotDetected) Parainfluenza 1 (PCR) (NotDetected) Parainfluenza 2 (PCR) (NotDetected) Parainfluenza 3 (PCR) (NotDetected) Parainfluenza 4 (PCR) (NotDetected) RSV (PCR) (NotDetected) Entero/Rhino (PCR) (NotDetected) 06/22/22 06/22/22 06/22/22 Range/Units 10:10 10:10 10:27 WBC (4.8-10.8) K/ul RBC (4.70-6.10) M/uL Hgb (14.0-18.0) g/dl Hct (42.0-52.0) % MCV (80.0-100.0) fL MCH (25.0-34.0) pg MCHC (32.0-36.0) g/dL RDW Std Deviation (36.4-46.3) fL RDW Coeff of Hector (11.5-14.5) % Plt Count (130-400) K/uL MPV (9.4-12.4) fL Immature Gran % (Auto) % Neut % (Auto) % Lymph % (Auto) % [place] % (Auto) % Eos % (Auto) % Baso % (Auto) % Neut # (Auto) (1.40-6.50) K/uL Lymph # (Auto) (1.2-3.4) K/uL [place] # (Auto) (0.11-0.59) K/uL Eos # (Auto) (0-0.50) K/uL Baso # (Auto) (0-0.2) K/uL Immature Gran # (Auto) (0.01-0.20) K/uL PT Cancelled INR Cancelled APTT Cancelled PTT Ratio Cancelled POC pH (7.35-7.45) POC pCO2 (35-46) mmHg POC pO2 (80-95) mmHg POC HCO3 (19-24) lars/L POC Total CO2 (24-31) mmol/L POC Base Excess (-9-1.8) lars/L ABG pH ABG pCO2 ABG pO2 ABG HCO3 POC ABG O2 Sat (90-95) % ABG O2 Saturation ABG Base Excess John Test Barometric Pressure Oxygen Given Sodium (136-145) mmol/L Potassium (3.5-5.1) mmol/L Chloride (98-107) mmol/L Carbon Dioxide (21-32) mmol/L Anion Gap (3-11) BUN (6-23) mg/dl Creatinine (0.6-1.4) mg/dl Est Cr Clr Drug Dosing Est GFR ( Amer) ml/min Est GFR (Non-Af Amer) ml/min BUN/Creatinine Ratio (10-20) Glucose (70-99(Fasting)) mg/dl Lactate 0.9 (0.4-2.0) mmol/L Calcium (8.6-10.3) mg/dl Magnesium (1.7-2.4) mg/dl Total Bilirubin (0.2-1.0) mg/dl Direct Bilirubin (0-0.2) mg/dl AST (13-39) U/L ALT (7-52) U/L Alkaline Phosphatase (34-104) U/L Ammonia (18-72) umol/L Troponin I High Sens (0-20) pg/ml Total Protein (6.0-8.3) gm/dl Albumin (3.4-5.0) gm/dl Procalcitonin (0-0.5) ng/ml Urine Color Urine Appearance (Clear) Urine pH (4.5-7.5) Ur Specific [place] (1.000-1.030) Urine Protein (Negative) Urine Glucose (UA) (Negative) Urine Ketones (Negative) Urine Blood (Negative) Urine Nitrite (Negative) Urine Bilirubin (Negative) Urine Urobilinogen (Negative) Ur Leukocyte Esterase (Negative) Urine WBC (Auto) (0-5) /hpf Urine RBC (Auto) (0-4) /hpf U Hyaline Cast (Auto) (0-5) /lpf U Epithel Cells (Auto) (0-5) /lpf Urine Bacteria (Auto) (Negative) Ur Renal Epithelial Cell Adenovirus (PCR) Not Detected (NotDetected) B. pertussis DNA (PCR) Not Detected (NotDetected) B.parapertussis DNA PCR Not Detected (NotDetected) C. pneumoniae DNA (PCR) Not Detected (NotDetected) Coronavirus OC43 (PCR) Not Detected (NotDetected) Coronavirus HKU1 (PCR) Not Detected (NotDetected) Coronavirus 229E (PCR) Not Detected (NotDetected) SARS-CoV-2 (PCR) Not Detected (NotDetected) Coronavirus NL63 (PCR) Not Detected (NotDetected) Human Metapneumovir PCR Not Detected (NotDetected) Influenza Type A (PCR) Not Detected (NotDetected) Influenza Type B (PCR) Not Detected (NotDetected) M. pneumoniae (PCR) Not Detected (NotDetected) Parainfluenza 1 (PCR) Not Detected (NotDetected) Parainfluenza 2 (PCR) Not Detected (NotDetected) Parainfluenza 3 (PCR) Not Detected (NotDetected) Parainfluenza 4 (PCR) Not Detected (NotDetected) RSV (PCR) Not Detected (NotDetected) Entero/Rhino (PCR) Not Detected (NotDetected) 06/22/22 06/22/22 06/22/22 Range/Units 10:27 10:35 11:10 WBC (4.8-10.8) K/ul RBC (4.70-6.10) M/uL Hgb (14.0-18.0) g/dl Hct (42.0-52.0) % MCV (80.0-100.0) fL MCH (25.0-34.0) pg MCHC (32.0-36.0) g/dL RDW Std Deviation (36.4-46.3) fL RDW Coeff of [place]ector (11.5-14.5) % Plt Count (130-400) K/uL MPV (9.4-12.4) fL Immature Gran % (Auto) % Neut % (Auto) % Lymph % (Auto) % [place] % (Auto) % Eos % (Auto) % Baso % (Auto) % Neut # (Auto) (1.40-6.50) K/uL Lymph # (Auto) (1.2-3.4) K/uL [place] # (Auto) (0.11-0.59) K/uL Eos # (Auto) (0-0.50) K/uL Baso # (Auto) (0-0.2) K/uL Immature Gran # (Auto) (0.01-0.20) K/uL PT INR APTT PTT Ratio POC pH (7.35-7.45) POC pCO2 (35-46) mmHg POC pO2 (80-95) mmHg POC HCO3 (19-24) lasr/L POC Total CO2 (24-31) mmol/L POC Base Excess (-9-1.8) lars/L ABG pH Cancelled Cancelled ABG pCO2 Cancelled Cancelled ABG pO2 Cancelled Cancelled ABG HCO3 Cancelled Cancelled POC ABG O2 Sat (90-95) % ABG O2 Saturation Cancelled Cancelled ABG Base Excess Cancelled Cancelled John Test Cancelled Cancelled Barometric Pressure Cancelled Cancelled Oxygen Given Cancelled Cancelled Sodium (136-145) mmol/L Potassium (3.5-5.1) mmol/L Chloride (98-107) mmol/L Carbon Dioxide (21-32) mmol/L Anion Gap (3-11) BUN (6-23) mg/dl Creatinine (0.6-1.4) mg/dl Est Cr Clr Drug Dosing Est GFR ( Amer) ml/min Est GFR (Non-Af Amer) ml/min BUN/Creatinine Ratio (10-20) Glucose (70-99(Fasting)) mg/dl Lactate (0.4-2.0) mmol/L Calcium (8.6-10.3) mg/dl Magnesium (1.7-2.4) mg/dl Total Bilirubin (0.2-1.0) mg/dl Direct Bilirubin (0-0.2) mg/dl AST (13-39) U/L ALT (7-52) U/L Alkaline Phosphatase (34-104) U/L Ammonia 25.0 (18-72) umol/L Troponin I High Sens (0-20) pg/ml Total Protein (6.0-8.3) gm/dl Albumin (3.4-5.0) gm/dl Procalcitonin (0-0.5) ng/ml Urine Color Urine Appearance (Clear) Urine pH (4.5-7.5) Ur Specific [place] (1.000-1.030) Urine Protein (Negative) Urine Glucose (UA) (Negative) Urine Ketones (Negative) Urine Blood (Negative) Urine Nitrite (Negative) Urine Bilirubin (Negative) Urine Urobilinogen (Negative) Ur Leukocyte Esterase (Negative) Urine WBC (Auto) (0-5) /hpf Urine RBC (Auto) (0-4) /hpf U Hyaline Cast (Auto) (0-5) /lpf U Epithel Cells (Auto) (0-5) /lpf Urine Bacteria (Auto) (Negative) Ur Renal Epithelial Cell Adenovirus (PCR) (NotDetected) B. pertussis DNA (PCR) (NotDetected) B.parapertussis DNA PCR (NotDetected) C. pneumoniae DNA (PCR) (NotDetected) Coronavirus OC43 (PCR) (NotDetected) Coronavirus HKU1 (PCR) (NotDetected) Coronavirus 229E (PCR) (NotDetected) SARS-CoV-2 (PCR) (NotDetected) Coronavirus NL63 (PCR) (NotDetected) Human Metapneumovir PCR (NotDetected) Influenza Type A (PCR) (NotDetected) Influenza Type B (PCR) (NotDetected) M. pneumoniae (PCR) (NotDetected) Parainfluenza 1 (PCR) (NotDetected) Parainfluenza 2 (PCR) (NotDetected) Parainfluenza 3 (PCR) (NotDetected) Parainfluenza 4 (PCR) (NotDetected) RSV (PCR) (NotDetected) Entero/Rhino (PCR) (NotDetected) 06/22/22 06/22/22 06/22/22 Range/Units 12:09 13:09 Unknown WBC (4.8-10.8) K/ul RBC (4.70-6.10) M/uL Hgb (14.0-18.0) g/dl Hct (42.0-52.0) % MCV (80.0-100.0) fL MCH (25.0-34.0) pg MCHC (32.0-36.0) g/dL RDW Std Deviation (36.4-46.3) fL RDW Coeff of [place]ector (11.5-14.5) % Plt Count (130-400) K/uL MPV (9.4-12.4) fL Immature Gran % (Auto) % Neut % (Auto) % Lymph % (Auto) % [place] % (Auto) % Eos % (Auto) % Baso % (Auto) % Neut # (Auto) (1.40-6.50) K/uL Lymph # (Auto) (1.2-3.4) K/uL [place] # (Auto) (0.11-0.59) K/uL Eos # (Auto) (0-0.50) K/uL Baso # (Auto) (0-0.2) K/uL Immature Gran # (Auto) (0.01-0.20) K/uL PT 13.0 H INR 1.2 H APTT 36.6 H PTT Ratio 1.3 POC pH 7.40 (7.35-7.45) POC pCO2 44 (35-46) mmHg POC pO2 59 L (80-95) mmHg POC HCO3 28 H (19-24) lars/L POC Total CO2 29 (24-31) mmol/L POC Base Excess 3.0 H (-9-1.8) lars/L ABG pH ABG pCO2 ABG pO2 ABG HCO3 POC ABG O2 Sat 90.0 (90-95) % ABG O2 Saturation ABG Base Excess John Test Barometric Pressure Oxygen Given Sodium (136-145) mmol/L Potassium (3.5-5.1) mmol/L Chloride (98-107) mmol/L Carbon Dioxide (21-32) mmol/L Anion Gap (3-11) BUN (6-23) mg/dl Creatinine (0.6-1.4) mg/dl Est Cr Clr Drug Dosing Est GFR ( Amer) ml/min Est GFR (Non-Af Amer) ml/min BUN/Creatinine Ratio (10-20) Glucose (70-99(Fasting)) mg/dl Lactate (0.4-2.0) mmol/L Calcium (8.6-10.3) mg/dl Magnesium (1.7-2.4) mg/dl Total Bilirubin (0.2-1.0) mg/dl Direct Bilirubin (0-0.2) mg/dl AST (13-39) U/L ALT (7-52) U/L Alkaline Phosphatase (34-104) U/L Ammonia (18-72) umol/L Troponin I High Sens (0-20) pg/ml Total Protein (6.0-8.3) gm/dl Albumin (3.4-5.0) gm/dl Procalcitonin (0-0.5) ng/ml Urine Color Dark Yellow Urine Appearance Cloudy A (Clear) Urine pH 8.5 H (4.5-7.5) Ur Specific [place] 1.023 (1.000-1.030) Urine Protein 1+ H (Negative) Urine Glucose (UA) Negative (Negative) Urine Ketones Negative (Negative) Urine Blood 3+ H (Negative) Urine Nitrite Negative (Negative) Urine Bilirubin Negative (Negative) Urine Urobilinogen Negative (Negative) Ur Leukocyte Esterase 2+ H (Negative) Urine WBC (Auto) 10-30 H (0-5) /hpf Urine RBC (Auto) >30 H (0-4) /hpf U Hyaline Cast (Auto) 1-5 (0-5) /lpf U Epithel Cells (Auto) >30 H (0-5) /lpf Urine Bacteria (Auto) 1+ H (Negative) Ur Renal Epithelial Cell Not Reportable Adenovirus (PCR) (NotDetected) B. pertussis DNA (PCR) (NotDetected) B.parapertussis DNA PCR (NotDetected) C. pneumoniae DNA (PCR) (NotDetected) Coronavirus OC43 (PCR) (NotDetected) Coronavirus HKU1 (PCR) (NotDetected) Coronavirus 229E (PCR) (NotDetected) SARS-CoV-2 (PCR) (NotDetected) Coronavirus NL63 (PCR) (NotDetected) Human Metapneumovir PCR (NotDetected) Influenza Type A (PCR) (NotDetected) Influenza Type B (PCR) (NotDetected) M. pneumoniae (PCR) (NotDetected) Parainfluenza 1 (PCR) (NotDetected) Parainfluenza 2 (PCR) (NotDetected) Parainfluenza 3 (PCR) (NotDetected) Parainfluenza 4 (PCR) (NotDetected) RSV (PCR) (NotDetected) Entero/Rhino (PCR) (NotDetected) Administered Medications Discontinued Medications Sodium Chloride (Nss 1000ml) 1,000 mls @ 999 mls/hr IV .Q1H1M MARIBETH Stop: 06/22/22 11:30 Last Admin: 06/22/22 11:10 Dose: 999 mls/hr Documented By: KV Cefepime HCl (Maxipime) 2,000 mg in 20 mls @ 5 mls/min IV NOW STA; Protocol Stop: 06/22/22 10:19 Last Admin: 06/22/22 11:10 Dose: 5 mls/min Documented By: KV Imaging Data Radiologist's Impression: Chest X-Ray 06/22/22 10:16 XR chest 1V portable HISTORY: Sepsis COMPARISON: Chest 06/06/2022. FINDINGS: No pneumothorax. No pleural effusions. There are low lung volumes. The cardiac silhouette is top normal in size. The lungs are clear. Degenerative changes again noted within the right shoulder. IMPRESSION: No significant change compared to the prior study. No acute process. ACT 112: Negative or not required by law. Electronically signed by: Will Barry M.D. 06/22/2022 11:[address] 06/22/22 10:19 CT SCAN OF THE BRAIN WITHOUT IV CONTRAST CLINICAL HISTORY: Delirium. COMPARISON STUDY: CT of the brain dated 06/08/2020. TECHNIQUE: Unenhanced axial CT scan of the brain is performed from the vertex to the skull base. A dose lowering technique was utilized adhering to the principles of ALARA. The vertex was scanned twice due to motion artifact. CT DOSE: 844.62 mGy.cm FINDINGS: Brain parenchyma: There is age-related involutional change noting mild subcortical and periventricular microangiopathic disease. There is no hemorrhage, mass effect, or evidence of acute territorial ischemia by CT criteria. Huang-white matter differentiation is preserved. No extra-axial fluid collection is seen. Ventricles, sulci, cisterns: Prominent secondary to involutional change. Intracranial vasculature: There is atherosclerotic calcification of the cavernous carotid and vertebral arteries. Calvarium: Unremarkable. Sinuses and mastoids: There is mucosal thickening and an air-fluid level in the right maxillary antrum. Mild to moderate mucosal thickening seen within the ethmoid sinuses. There is trace mucosal thickening within the sphenoid and left maxillary sinuses. The mastoid air cells are well pneumatized. Orbits: The bony orbits are grossly intact. Soft tissues: A 6 mm metallic foreign body is noted in the left temporoparietal scalp. IMPRESSION: 1. There is no hemorrhage, mass effect, or evidence of acute territorial ischemia by CT criteria. 2. Paranasal sinus disease as above. Correlate clinically for evidence of acute sinusitis. ACT 112: Negative or not required by law. Electronically signed by: Joel Prater M.D. 06/22/2022 10:51 AM Discharge Plan Visit Data Chief Complaint: Altered Mental Status ED Provider: Joel Berkowitz Discharge Problem: Acute confusion, Anemia, Somnolence, Sinusitis, Hematuria Patient Disposition: Admitted As Inpatient Condition: Fair Forms Stand Alone Forms: [facility] Referrals Referrals: [facility] [Primary Care Provider] -
[2022-06-22] MEDS ORDERED: SODIUM CHLORIDE 0.9% 1000ML 1,000 ML IV SCH (10:30)
--- NOTE | 2022-06-22 10:54 | CT Scan Report ---
CT SCAN OF THE BRAIN WITHOUT IV CONTRAST CLINICAL HISTORY: Delirium. COMPARISON STUDY: CT of the brain dated 06/08/2020. TECHNIQUE: Unenhanced axial CT scan of the brain is performed from the vertex to the skull base. A do se lowering technique was utilized adhering to the principles of ALARA. The vertex was scanned twice due to motion artifact. CT DOSE: 844.62 mGy.cm FINDINGS: Brain parenchyma: There is age-related involutional change noting mild subcortical and periventricula r microangiopathic disease. There is no hemorrhage, mass effect, or evidence of acute territorial isc hemia by CT criteria. Huang-white matter differentiation is preserved. No extra-axial fluid collection is seen. Ventricles, sulci, cisterns: Prominent secondary to involutional change. Intracranial vasculature: There is atherosclerotic calcification of the cavernous carotid and vertebr al arteries. Calvarium: Unremarkable. Sinuses and mastoids: There is mucosal thickening and an air-fluid level in the right maxillary antru m. Mild to moderate mucosal thickening seen within the ethmoid sinuses. There is trace mucosal thicke kit within the sphenoid and left maxillary sinuses. The mastoid air cells are well pneumatized. Orbits: The bony orbits are grossly intact. Soft tissues: A 6 mm metallic foreign body is noted in the left temporoparietal scalp. IMPRESSION: 1. There is no hemorrhage, mass effect, or evidence of acute territorial ischemia by CT criteria. 2. Paranasal sinus disease as above. Correlate clinically for evidence of acute sinusitis. ACT 112: Negative or not required by law. Electronically signed by: Joel Prater M.D. 06/22/2022 10:51 AM
[2022-06-22 10:59] LABS: Basophils # (auto) 0.01 K/uL (0-0.2); Basophils % (auto) 0.2 %; Eosinophils # (auto) 0.05 K/uL (0-0.50); Eosinophils % (auto) 0.9 %; Hematocrit (blood only) 29.8 % (42.0-52.0); Immature Granulocytes # (auto) 0.08 K/uL (0.01-0.20); Immature Granulocytes % (auto) 1.4 %; Lymphocytes # (auto) 0.63 K/uL (1.2-3.4); Lymphocytes % (auto) 11.4 %; Mean Corpuscular Hemoglobin 29.8 pg (25.0-34.0); Mean Corpuscular Hgb Conc 30.2 g/dL (32.0-36.0); Mean Corpuscular Volume 98.7 fL (80.0-100.0); Monocytes # (auto) 0.31 K/uL (0.11-0.59); Monocytes % (auto) 5.6 %; Neutrophils # (auto) 4.45 K/uL (1.40-6.50); Neutrophils % (auto) 80.5 %; Platelet Count 218 K/uL (130-400); RDW Coefficient of Variation 17.2 % (11.5-14.5); RDW Standard Deviation 61.9 fL (36.4-46.3); Red Blood Count 3.02 M/uL (4.70-6.10); White Blood Count 5.53 K/ul (4.8-10.8)
[2022-06-22 11:12] LABS: Anion Gap 6 (3-11); BUN Creatinine Ratio 14.3 (10-20); Blood Urea Nitrogen 16 mg/dl (6-23); Calcium 9.3 mg/dl (8.6-10.3); Carbon Dioxide 31 mmol/L (21-32); Chloride 102 mmol/L (98-107); Est GFR (African American) 74.1 ml/min; Est GFR (Non-African American) 63.9 ml/min; Glucose 92 mg/dl (70-99(Fasting)); Potassium 4.5 mmol/L (3.5-5.1); Sodium 139 mmol/L (136-145)
[2022-06-22 11:14] LABS: Alanine Aminotransferase < 3 U/L (7-52); Albumin Level 3.8 gm/dl (3.4-5.0); Alkaline Phosphatase 65 U/L (34-104); Aspartate Aminotransferase 10 U/L (13-39); Bilirubin Direct 0.1 mg/dl (0-0.2); Bilirubin,Total 0.6 mg/dl (0.2-1.0); Magnesium 1.9 mg/dl (1.7-2.4)
--- NOTE | 2022-06-22 11:28 | XRay Report ---
XR chest 1V portable HISTORY: Sepsis COMPARISON: Chest 06/06/2022. FINDINGS: No pneumothorax. No pleural effusions. There are low lung volumes. The cardiac silhouette i s top normal in size. The lungs are clear. Degenerative changes again noted within the right shoulder . IMPRESSION: No significant change compared to the prior study. No acute process. ACT 112: Negative or not required by law. Electronically signed by: Will Barry M.D. 06/22/2022 11:27 AM
[2022-06-22 13:05] LABS: INR 1.2 (0.9-1.1); Partial Thromboplastin Ratio 1.3; Partial Thromboplastin Time 36.6 Seconds (21.0-31.0)
[2022-06-22 13:22] LABS: iSTAT Arterial Blood Gas HCO3 28 meg/L (19-24); iSTAT Arterial Blood Gas pCO2 44 mmHg (35-46); iSTAT Arterial Blood Gas pO2 59 mmHg (80-95); iSTAT Carbon Dioxide 29 mmol/L (24-31)
[2022-06-22 13:56] LABS: Appearance Urine Cloudy (Clear); Bilirubin Urine Negative (Negative); Blood Urine 3+ (Negative); Color Urine Dark Yellow; Epithelial Cell Urine Auto >30 /lpf (0-5); Glucose Urine UA Negative (Negative); Ketones Urine Negative (Negative); Leukocyte Esterase Urine 2+ (Negative); Nitrite Urine Negative (Negative); RBC Urine Automated >30 /hpf (0-4); Specific Gravity Urine 1.023 (1.000-1.030); Urobilinogen Urine Negative (Negative); pH Urine 8.5 (4.5-7.5)
[2022-06-22 13:59] LABS: Protein Urine 1+ (Negative)
[2022-06-22 14:22] LABS: Bacteria Urine Automated 1+ (Negative)
--- NOTE | 2022-06-22 14:49 | History & Physical Report ---
Date of Service June 22, 2022 Assessment & Plan (1) Acute alteration in mental status: Plan: AMS, history of Lewy body dementia -Patient with increased somnolence, lethargy. At time of bedside assessment he arouses transiently and answer some questions before falling back asleep. -Unclear cause of patient's significant somnolence and worsening. He has had bloody output now improved since Rooney exchange suggesting Rooney malposition, and evidence of sinusitis on CT. Possible that these are contributing to metabolic encephalopathy, however he does not have leukocytosis, Pro-Lj is normal, ammonia is normal, and he is not hypercarbic on his VBG. Patient does have Lewy body disease, and may have a progression of tremors/confusion related to this acutely worsened in the post-COVID period. We will treat with Unasyn to double cover for sinusitis/potential UTI pending UCx results. No penicillin allergy, confirmed with patient's We will dose reduce trazodone for potential sedation/polypharmacy Lewy body disease Patient normally can carry conversation, some tremors in arms but not whole body and is usually oriented to year. Seems acutely worse than his prior normal, otherwise not return to his prior normal since COVID Continue Sinemet Viral panel pending Paroxysmal A-fib Sinus rhythm on admission Continue Eliquis, metoprolol Chronic Anemia - Continue hydroxyurea, b12 Hemoglobin 9.0, uptrending from prior. Trend CBC daily Hematuria - Improved post rooney exchange - UA contaminated appearing, UC pending - UTI empirically covered as noted above - Follow rooney output. Placed for BPH w/ LUTS VIK - CPAP qhs - VBG without significant hypercapnea on admit Oral Candidiasis -14-day course of oral Diflucan completed 2 days ago - No acute change in management Medication reconciliation: Patient is not able to give an accurate reconciliation of his medications. Med review performed from admitting paperwork, last discharge note, and pharmacy reconciliation DVT prophylaxis: Continue DOAC Disposition: Medical/surgical CODE STATUS: DNR/DNI Diet: Minced and moist (2) Anemia: (3) HTN (hypertension): (4) VIK on CPAP: (5) Paroxysmal atrial fibrillation: (6) PTSD (post-traumatic stress disorder): History of Present Illness Primary Care Provider: [facility] Addison De Los Santos is a 77-year-old male with past medical history of chronic anemia on hydroxyurea following with hematology oncology, esophagitis under treatment with Diflucan until 06/24 for associated oral candidiasis, paroxysmal A-fib on anticoagulation with Eliquis, VIK on CPAP but unable to tolerate BiPAP at bedtime, PTSD, and vitamin D deficiency who was discharged 06/13/2022 to rehab for weakness after an admission for acute hypoxic respiratory failure 2/2 COVID- pneumonia who presents to the ER for hematuria since Rooney placement and increasing confusion. He has no leukocytosis, hemoglobin is 9.0 up from prior 7.8, VBG seven-point , creatinine is with normal baseline and 1.12 on admission, no gross electrolyte derangements, no transaminitis, normal ammonia, and UA with 1+ bacteria and greater than 30 RBCs. Patient is seen at the bedside. History is limited due to his sedation, he awakens to voice and denies pain, chest pressure, fever, chills, dysuria but is confused and oriented to name only. Is not aware of where he is, and frequently falls back asleep. Thought process tangential. Collateral is collected from patient's by phone. Discussed w/ pts . Reports has had tremors, hallucinations, and confusion in the last week since being at rehab. Reports he has had easy confusion in the past, but shaking used to just be in the hands and now seems worse and in the hands. Normally is oriented to his name and , and generally the year and can carry on some of a conversation.- Since being at rehab has been weaker and more fatigued. has noted some low BP with rehab and sittin gup. No chest pain, no chest pressure. No episodes of syncope. Has been complaining of pain with urination, has BPH at baseline. Multiple UTIs in the past, but last check was normal to her knowledge. HPI limited by somnolence and cognitive status Allergies Allergy/AdvReac Type Severity Reaction Status Date / Time ibuprofen Allergy Intermediate HIVES Verified 06/01/22 16:39 Home Medications Medication Instructions Recorded Confirmed Type albuterol sulfate 90 mcg/actuation 2 puff inhalation Q4 PRN Shortness 03/12/22 06/01/22 History aerosol inhaler Of Breath Or Wheezing apixaban 5 mg tablet (Eliquis) 5 mg PO BID 03/12/22 06/01/22 History atorvastatin 10 mg tablet 10 mg PO DAILY 03/12/22 06/01/22 History budesonide-formoterol HFA 160 2 puff inhalation BID PRN 03/12/22 06/01/22 History mcg-4.5 mcg/actuation aerosol Shortness Of Breath Or Wheezing inhaler bupropion HCl 300 mg 24 hr tablet, 300 mg PO QAM 03/12/22 06/01/22 History extended release buspirone 5 mg tablet 7.5 mg PO TID 03/12/22 06/01/22 History carbidopa 25 mg-levodopa 100 mg 1 tab PO .DAILY @ NOON 03/12/22 06/01/22 History tablet carbidopa 25 mg-levodopa 100 mg 2 tab PO AMHS 03/12/22 06/01/22 History tablet cyclobenzaprine 10 mg tablet 10 mg PO BID 03/12/22 06/01/22 History finasteride 5 mg tablet 5 mg PO DAILY 03/12/22 06/01/22 History furosemide 20 mg tablet 20 mg PO DAILY 03/12/22 06/01/22 History hydroxyurea 500 mg capsule 1,000 mg PO DIRECTED 03/12/22 06/01/22 History lisinopril 5 mg tablet 5 mg PO DAILY 03/12/22 06/01/22 History memantine 5 mg tablet 5 mg PO DAILY 03/12/22 06/01/22 History metoprolol tartrate 25 mg tablet 12.5 mg PO BID 03/12/22 06/01/22 History montelukast 10 mg tablet 10 mg PO DAILY 03/12/22 06/01/22 History prazosin 5 mg capsule 5 mg PO HS 03/12/22 06/01/22 History pregabalin 150 mg capsule 150 mg PO BID 03/12/22 06/01/22 History sertraline 100 mg tablet 100 mg PO BID 03/12/22 06/01/22 History tiotropium bromide 18 mcg capsule 1 cap inhalation DAILY PRN 03/12/22 06/01/22 History with inhalation device (Spiriva Shortness Of Breath Or Wheezing with HandiHaler) trazodone 150 mg tablet 150 mg PO HS 03/12/22 06/01/22 History ergocalciferol (vitamin D2) 1,250 50,000 unit PO Q7D@0800 #4 caps 06/13/22 Rx mcg (50,000 unit) capsule fluconazole 100 mg tablet 100 mg PO QAM #7 tabs 06/13/22 Rx (Diflucan) pantoprazole 40 mg tablet,delayed 40 mg PO BID #60 tabs 06/13/22 06/01/22 Rx release Past Med/Surg History Medical History Asthma BPH (benign prostatic hyperplasia) Bronchiolitis due to influenza virus Chronic bronchitis Closed fracture dislocation of ankle DDD (degenerative disc disease) Diverticulitis HTN (hypertension) Hypoxemia Intractable back pain MRSA (methicillin resistant Staphylococcus aureus) negative nasal swab on 06/24/15 and 10/05/18 Obesity Open wound of ankle with complication VIK on CPAP Noncompliant Prolonged QT interval URt=201 EKG 05/25/19 PTSD (post-traumatic stress disorder) do not wake patient by touching, wake patient by saying name Surgical History History of back surgery back surgery x3 at [facility] History of partial colectomy S/P hernia repair Status post ORIF of fracture of ankle 05/26/[address] Real [facility] with sedation. Family History Other Family history non-contributory Social History Smoking Status: Former smoker Tobacco Type: Smokeless Tobacco (Dip or Chew) Cigarettes Per Day: Uncertain.; Second Hand Exposure: No; Hx Alcohol Use: Yes Alcohol type: beer Hx Substance Use: No Preferred Language: Chadian Communication Ability: Effective Communication Ability Comment: Pt is currently confused [employer] Ro[employer]er Required: No Beliefs That Will Affect Care: None marital status: Current Living Situation: Spouse Current Living Situation Comment: with wifr and grandson Feels Safe at Home: Yes Assistive Devices: Walker and Wheelchair Review of Systems Review of Systems: Unobtainable due to cognitive status Physical Exam Physical Exam: General: Somnolent. Awakens to voice and soft touch, is able to give name/date of but not year or place. Falls back asleep easily HEENT: Atraumatic, normocephalic. Nontender to maxillary percussion. Pulm: CTAB A&P. -wheezes, -rales, -rhonchi. Symmetrical chest rise. No increased work of breathing. No respiratory distress. Cardiac: RRR, -mrg. Radial pulses intact and symmetrical. Abdominal: Nontender, nondistended, soft. BS present. : Rooney in place draining yellow urine at time of hospitalist assessment, no hematuria noted Extremities: Bilateral BKA. Surgical site well-healed, no overlying erythema/warmth/tenderness/dehiscence Results & Data Results & Data Vital Signs (Past 12 Hours) Vital Signs Temp Pulse Pulse Resp BP BP Pulse Ox 06/22/22 14:30 55 L 16 122/53 L 94 06/22/22 14:17 55 L 06/22/22 12:47 61 18 127/93 100 06/22/22 12:30 63 18 127/93 98 06/22/22 12:16 62 18 118/57 L 98 06/22/22 11:30 61 20 06/22/22 11:30 118/66 06/22/22 11:20 75 21 06/22/22 11:10 62 20 97 06/22/22 11:00 61 15 95 06/22/22 11:00 134/78 06/22/22 10:55 63 18 97 06/22/22 10:55 135/72 06/22/22 10:50 61 16 93 06/22/22 10:49 65 19 98 06/22/22 10:32 133/71 06/22/22 10:32 61 17 100 06/22/22 10:30 61 19 92 06/22/22 10:20 62 17 98 06/22/22 10:10 60 15 99 06/22/22 10:06 60 17 06/22/22 11:11 60 18 134/78 96 06/22/22 10:16 98 06/22/22 10:13 69 06/22/22 10:06 36.4 C L 61 18 121/66 100 O2 Del Method O2 Flow Rate 06/22/22 14:30 Nasal Cannula 2 06/22/22 14:17 06/22/22 12:47 Nasal Cannula 06/22/22 12:30 Nasal Cannula 06/22/22 12:16 06/22/22 11:30 06/22/22 11:30 06/22/22 11:20 06/22/22 11:10 06/22/22 11:00 06/22/22 11:00 06/22/22 10:55 06/22/22 10:55 06/22/22 10:50 06/22/22 10:49 06/22/22 10:32 06/22/22 10:32 06/22/22 10:30 06/22/22 10:20 06/22/22 10:10 06/22/22 10:06 06/22/22 11:11 Nasal Cannula 06/22/22 10:16 Room Air 06/22/22 10:13 06/22/22 10:06 Nasal Cannula 3 PG Care Time/CCT Total # of Minutes Spent Total Time Spent with Patient: Total time spent is greater than 50% in coordination of care (as documented) at patient's floor/unit and/or counseling patient: Coding Level of Care Code 53217 INT INP/OBS CARE 2/55MIN Diagnoses Acute alteration in mental status R41.82 Anemia D64.9 HTN (hypertension) I10 Hypertension type: essential hypertension VIK on CPAP G47.33; Z99.89 Paroxysmal atrial fibrillation I48.0 PTSD (post-traumatic stress disorder) F43.10 (3) HTN (hypertension) Hypertension type: essential hypertension Qualified Code(s): I10 - Essential (primary) hypertension
[2022-06-22 15:31] LABS: Adenovirus PCR Not Detected (NotDetected); Bordetella parapertussis PCR Not Detected (NotDetected); Bordetella pertussis PCR Not Detected (NotDetected); Chlamydia pneumoniae PCR Not Detected (NotDetected); Coronavirus 229E PCR Not Detected (NotDetected); Coronavirus CoV-2 (COVID19)PCR Not Detected (NotDetected); Coronavirus HKU1 PCR Not Detected (NotDetected); Coronavirus NL63 PCR Not Detected (NotDetected); Coronavirus OC43PCR Not Detected (NotDetected); Human Metapneumovirus PCR Not Detected (NotDetected); Influenza A PCR Not Detected (NotDetected); Influenza B PCR Not Detected (NotDetected); Mycoplasma pneumoniae PCR Not Detected (NotDetected); Parainfluenza Virus 1 PCR Not Detected (NotDetected); Parainfluenza Virus 2 PCR Not Detected (NotDetected); Parainfluenza Virus 3 PCR Not Detected (NotDetected); Parainfluenza Virus 4 PCR Not Detected (NotDetected); Respiratory Syncytial VirusPCR Not Detected (NotDetected); Rhinovirus/Enterovirus PCR Not Detected (NotDetected)
--- NOTE | 2022-06-22 16:50 | Electrocardiogram Report ---
Test Reason : Blood Pressure : / mmHG Vent. Rate : 060 BPM Atrial Rate : 060 BPM P-R Int : 172 ms QRS Dur : 080 ms QT Int : 446 ms P-R-T Axes : -10 005 034 degrees QTc Int : 446 ms Normal sinus rhythm Nonspecific ST and T wave abnormality Abnormal ECG When compared with ECG of 01-JUN-2022 15:02, Nonspecific T wave abnormality no longer evident in Inferior leads Nonspecific T wave abnormality no longer evident in Lateral leads Confirmed by Fernie Quiroga ([id number]) on 06/22/2022 4:49:44 PM Referred By: REFERRED SELF Confirmed By:Fernie Quiroga
[2022-06-22] MEDS ORDERED: ACETAMINOPHEN 325 MG TAB PO PRN (20:30)
[2022-06-22] MEDS ORDERED: ALBUTEROL HFA 8 GM INHALER INH PRN (20:30)
[2022-06-22] MEDS: AMPICILLIN/SULBACTAM SOD 3,000 MG in 0.9 % SODIUM CHLORIDE 100 ML IV SCH (22:12)
[2022-06-22] MEDS: CARBIDOPA/LEVODOPA 25/100MG TAB PO SCH (22:12)
[2022-06-22] MEDS: APIXABAN 5 MG TABLET PO SCH (22:13)
[2022-06-22] MEDS: PANTOprazole 40 MG TAB PO SCH (22:13)
[2022-06-22] MEDS: busPIRone 7.5 MG TAB PO SCH (22:13)
[2022-06-22] MEDS: METOPROLOL TARTRATE 25 MG TAB PO SCH (22:13)
[2022-06-22] MEDS: PRAZOSIN HCL 1 MG CAP PO SCH (22:14)
[2022-06-22] MEDS: SERTRALINE HCL 100 MG TABLET PO SCH (22:14)
[2022-06-22] MEDS: traZODone HCL 50 MG TAB PO SCH (22:15)
[2022-06-22] MEDS: HYDROXYUREA 500 MG CAP PO SCH (22:15)
[2022-06-22] MEDS: PREGABALIN 150 MG CAP PO SCH (22:25)
[2022-06-23] MEDS: AMPICILLIN/SULBACTAM SOD 3,000 MG in 0.9 % SODIUM CHLORIDE 100 ML IV SCH ×4 (05:03→21:21)
[2022-06-23 05:51] LABS: A calco-baum cmplx NotReported Not Detected (NotDetected); Bact fragilis Not Reported Not Detected (NotDetected); C auris Not Reported Not Detected (NotDetected); Calbicans Not Reported Not Detected (NotDetected); Candida glabrata Not Reported Not Detected (NotDetected); Candida krusei Not Reported Not Detected (NotDetected); Cneoformans/gatti Not Reported Not Detected (NotDetected); Cparapsilosis Not Reported Not Detected (NotDetected); Ctropicalis Not Reported Not Detected (NotDetected); E cloacae compx Not Reported Not Detected (NotDetected); Efaecalis Not Reported Not Detected (NotDetected); Efaecium Not Reported Not Detected (NotDetected); Enterobacterales Not Reported Not Detected (NotDetected); Escherichia coli Not Reported Not Detected (NotDetected); H influenzae Not Reported Not Detected (NotDetected); K aerogenes Not Reported Not Detected (NotDetected); Koxytoca Not Reported Not Detected (NotDetected); Kpneumoniae grp Not Reported Not Detected (NotDetected); Lmonocyt Not Reported Not Detected (NotDetected); N meningitidis Not Reported Not Detected (NotDetected); P aeruginosa Not Reported Not Detected (NotDetected); Proteus spp Not Reported Not Detected (NotDetected); Salmonella spp Not Reported Not Detected (NotDetected); Smarcescens Not Reported Not Detected (NotDetected); Staph lugdunensis Not Reported Not Detected (NotDetected); Staph spp. Not Reported DETECTED (NotDetected); Staphaureus Not Reported Not Detected (NotDetected); Staphepi Not Reported DETECTED (NotDetected); Staphylococcus spp. DETECTED (NotDetected); Stenmaltophilia Not Reported Not Detected (NotDetected); Strep agal(GrpB) Not Reported Not Detected (NotDetected); Strep pneum Not Reported Not Detected (NotDetected); Strep pyog (GrpA) Not Reported Not Detected (NotDetected); Strep spp Not Reported Not Detected (NotDetected)
[2022-06-23 05:56] LABS: Staphylococcus epidermidis DETECTED (NotDetected); mecAC Resistant Gene DETECTED (NotDetected)
[2022-06-23 06:01] LABS: Basophils # (auto) 0.01 K/uL (0-0.2); Basophils % (auto) 0.2 %; Eosinophils # (auto) 0.05 K/uL (0-0.50); Eosinophils % (auto) 1.1 %; Hematocrit (blood only) 25.2 % (42.0-52.0); Hemoglobin 7.4 g/dl (14.0-18.0); Immature Granulocytes # (auto) 0.04 K/uL (0.01-0.20); Immature Granulocytes % (auto) 0.9 %; Lymphocytes # (auto) 0.66 K/uL (1.2-3.4); Lymphocytes % (auto) 14.7 %; Mean Corpuscular Hemoglobin 28.9 pg (25.0-34.0); Mean Corpuscular Hgb Conc 29.4 g/dL (32.0-36.0); Mean Corpuscular Volume 98.4 fL (80.0-100.0); Mean Platelet Volume 10.3 fL (9.4-12.4); Monocytes # (auto) 0.25 K/uL (0.11-0.59); Monocytes % (auto) 5.6 %; Neutrophils # (auto) 3.48 K/uL (1.40-6.50); Neutrophils % (auto) 77.5 %; Platelet Count 205 K/uL (130-400); RDW Coefficient of Variation 17.1 % (11.5-14.5); RDW Standard Deviation 60.7 fL (36.4-46.3); Red Blood Count 2.56 M/uL (4.70-6.10); White Blood Count 4.49 K/ul (4.8-10.8)
[2022-06-23 06:09] LABS: Anion Gap 6 (3-11); BUN Creatinine Ratio 16.3 (10-20); Blood Urea Nitrogen 14 mg/dl (6-23); Calcium 8.6 mg/dl (8.6-10.3); Carbon Dioxide 28 mmol/L (21-32); Chloride 105 mmol/L (98-107); Est GFR (African American) 98.3 ml/min; Est GFR (Non-African American) 84.8 ml/min; Glucose 78 mg/dl (70-99(Fasting)); Potassium 4.2 mmol/L (3.5-5.1); Sodium 139 mmol/L (136-145)
[2022-06-23] MEDS ORDERED: VANCOMYCIN CONSULT ACTIVE PRN (06:33)
[2022-06-23 06:56] LABS: RBC Morphology Unremarkable
[2022-06-23] MEDS ORDERED: VANCOMYCIN HCL 2,000 MG in SODIUM CHLORIDE 0.9% 500 ML IV ONE (07:00)
[2022-06-23] MEDS: Patient's HEIGHT &/or WEIGHT Needed SCH ×2 (07:41→15:49)
[2022-06-23] MEDS: ATORVASTATIN 10 MG TAB PO SCH (07:51)
[2022-06-23] MEDS: APIXABAN 5 MG TABLET PO SCH ×2 (07:53→21:15)
[2022-06-23] MEDS: buPROPion XL 300 MG TABCR PO SCH (07:53)
[2022-06-23] MEDS: busPIRone 7.5 MG TAB PO SCH ×3 (07:54→21:15)
[2022-06-23] MEDS: CARBIDOPA/LEVODOPA 25/100MG TAB PO SCH ×2 (07:57→21:16)
[2022-06-23] MEDS: FUROSEMIDE 20 MG TAB PO SCH (07:57)
[2022-06-23] MEDS: METOPROLOL TARTRATE 25 MG TAB PO SCH ×2 (07:58→21:16)
[2022-06-23] MEDS: HYDROXYUREA 500 MG CAP PO SCH (07:58)
[2022-06-23] MEDS: PANTOprazole 40 MG TAB PO SCH ×2 (07:58→21:17)
[2022-06-23] MEDS: lisinopril 5 MG TAB PO SCH (07:59)
[2022-06-23] MEDS: MONTELUKAST SODIUM 10 MG TABLET PO SCH (07:59)
[2022-06-23] MEDS: SERTRALINE HCL 100 MG TABLET PO SCH ×2 (07:59→21:18)
[2022-06-23] MEDS: MEMANTINE HCL 5 MG TAB PO SCH (07:59)
[2022-06-23] MEDS: PREGABALIN 150 MG CAP PO SCH ×2 (08:03→21:22)
[2022-06-23] MEDS ORDERED: UMECLIDINIUM BROMIDE 62.5MCG/BLISTER 7 PUFFS/INHALER INH PRN (09:00)
[2022-06-23] MEDS ORDERED: FLUTICASONE/VILANTEROL 100/25MCG 14 PUFFS/INHALER INH PRN (09:00)
[2022-06-23] MEDS ORDERED: CARBIDOPA/LEVODOPA 25/100MG TAB PO SCH (12:00)
--- NOTE | 2022-06-23 14:42 | Pharmacy Report ---
Pharmacy PK ABX Note - Date of Service June 23, 2022 - Assessment and Plan Assessment 77 year old M receiving Vancomycin for treatment of Bacteremia. Pertinent microbiologic data includes: [Negative MRSA Nasal Swab]. Blood cultures growing gram positive cocci. PCR report indicates MRSA. Day #1 of antimicrobial therapy. Plan Vancomycin * Loading dose: 2000 mg IV x 1 * Maintenance dose: 1250 mg IV every 12 hours * Regimen is predicted to achieve target AUC/DALLIN of 400-600 mg/L.hr * Random level ordered for: 06/25/22 at 13:00 prior to dose at 17:00 Pharmacy will continue to follow and will adjust dose/frequency as necessary. Thank you. Pharmacy has transitioned to AUC monitoring for vancomycin. AUC/DALLIN is the preferred PK/PD target and is associated with decreased risk of nephrotoxicity compared to traditional trough targets.
--- NOTE | 2022-06-23 15:24 | Neurology Consultation ---
Date of Consultation June 23, 2022 Assessment & Plan (1) Lewy body dementia: (2) Acute confusion: (3) Somnolence: (4) Bacteremia: Plan 77-year-old male with a history of Lewy body dementia characterized by fluctuating cognitive decline, visual hallucinations, tremor, recent hos pitalization for COVID-19 infection, now with MRSA bacteremia. Patient's tremor seems to be minimal at this time. His mental status has characteristically fluctuated which is characteristic for Lewy body dementia, along with episodic visual hallucinations. According to his spouse, he has not tolerated a trial of Seroquel which had previously been prescribed to address his hallucinations. To potentially reduce his agitation and hallucinations, I think it would be beneficial to try and reduce his Sinemet dosage, at least while he is acutely ill, in the hospital. I would recommend reducing the dosage of Sinemet to 25/100 mg, 1 tablet 3 times per day (he is currently getting 5 tablets/day.) According to his spouse, the benefit of this medication has been modest at best. Further, he does not seem to have significant parkinsonian tremor at this point in time. He may continue with memantine 5 mg/day. The dosage of this medication is low and probably not causing any adverse effects. If he were to become acutely agitated with worsening hallucinations, could try Zyprexa as an alternative atypical neuroleptic medication. I see that his dosage of trazodone has been reduced. This dosage reduction seems reasonable as he has been excessively somnolent. Of course, he also has sleep apnea. If his confusion persists, could also consider reducing his dosage of Lyrica for the time being. Continue medical management of bacteremia. Please call with any questions. History of Present Illness Reason for Consultation: Tremors, confusion, Lewy body dementia Requesting Physician: Dr. St Attending Physician: Анна St MD History of Present Illness The patient is a 77-year-old male with a history of Lewy body dementia, recently diagnosed by a specialist in [place] affiliated with [facility]. His condition has been characterized by progressive cognitive decline, fluctuating confusion, visual hallucinations, poor short-term memory, and intermittent resting tremor. History also notable for bilateral below the knee amputations about 3 years ago, and recent COVID-19 infection for which he was admitted to [facility] from June 01, 2022 through June 13, 2022. 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 He is on trazodone, sertraline, BuSpar and bupropion to address depression, anxiety, and insomnia. His spouse informs me that he had been prescribed Seroquel previously but did not tolerate this medication. He is also prescribed Lyrica for chronic pain. He had presented to the emergency department on June 22, 2022, yesterday, from [facility] for increasing confusion. He has been increasingly somnolent, felt to have a metabolic encephalopathy, further confounded by chronic anemia, obstructive sleep apnea, hematuria, paroxysmal atrial fibrillation, on Eliquis and metoprolol. Blood cultures are positive for gram- positive cocci. He is currently receiving ampicillin and vancomycin. He did have a CT of the head completed yesterday that was negative for hemorrhage or acute process. I did independently review these images. There is generalized atrophy and chronic small vessel ischemic disease. There are a few chronic bilateral subcortical lacunar infarcts as well. I did evaluate the patient this afternoon, his spouse was at bedside. He does readily awaken from sleep and was pleasant and cooperative. He is modestly confused, however, disoriented, able to follow commands. Denies any significant specific or focal neurologic complaint at this time, no headache, vision disturbance, vertigo, dysphagia, new focal weakness or sensory loss. Allergies Allergy/AdvReac Type Severity Reaction Status Date / Time ibuprofen Allergy Intermediate HIVES Verified 06/22/22 15:25 Home Medications Medication Instructions Recorded Confirmed Type Med Pass 60 ml PO BID 06/22/22 06/22/22 History acetaminophen 325 mg tablet 650 mg PO Q4 PRN .Mild - severe 06/22/22 06/22/22 History (Tylenol) pain, fever albuterol sulfate 90 mcg/actuation 2 puff inhalation Q4 PRN Shortness 06/22/22 06/22/22 History aerosol inhaler Of Breath Or Wheezing apixaban 5 mg tablet (Eliquis) 5 mg PO AMHS 06/22/22 06/22/22 History atorvastatin 10 mg tablet 10 mg PO QAM 06/22/22 06/22/22 History budesonide-formoterol HFA 160 2 puff inhalation BID 06/22/22 06/22/22 History mcg-4.5 mcg/actuation aerosol inhaler bupropion HCl 300 mg 24 hr tablet, 300 mg PO DAILY 06/22/22 06/22/22 History extended release buspirone 7.5 mg tablet 7.5 mg PO TID 06/22/22 06/22/22 History carbidopa 25 mg-levodopa 100 mg 1 tab PO .NOON 06/22/22 06/22/22 History tablet carbidopa 25 mg-levodopa 100 mg 2 tab PO AMHS 06/22/22 06/22/22 History tablet cyclobenzaprine 10 mg tablet 10 mg PO AMHS 06/22/22 06/22/22 History ergocalciferol (vitamin D2) 1,250 1,250 mcg PO WE 06/22/22 06/22/22 History mcg (50,000 unit) capsule (Vitamin D2) finasteride 5 mg tablet 5 mg PO QAM 06/22/22 06/22/22 History fluconazole 100 mg tablet 100 mg PO QAM 06/22/22 06/22/22 History furosemide 20 mg tablet 20 mg PO DAILY 06/22/22 06/22/22 History hydroxyurea 500 mg capsule 100 mg PO .MONDAY THRU Monday06/22/22 06/22/22 History magnesium hydroxide 400 mg/5 mL 30 ml PO .DAILY UD PRN Constipation 06/22/22 06/22/22 History oral suspension (Milk of Magnesia) memantine 5 mg tablet 5 mg PO QAM 06/22/22 06/22/22 History metoprolol tartrate 25 mg tablet 12.5 mg PO BID 06/22/22 06/22/22 History montelukast 10 mg tablet 10 mg PO HS 06/22/22 06/22/22 History pantoprazole 40 mg tablet,delayed 40 mg PO AMHS 06/22/22 06/22/22 History release prazosin 5 mg capsule 5 mg PO HS 06/22/22 06/22/22 History pregabalin 150 mg capsule 150 mg PO AMHS 06/22/22 06/22/22 History sertraline 100 mg tablet 100 mg PO AMHS 06/22/22 06/22/22 History sodium chloride 0.9 % (flush) 3 ml IV Q12 06/22/22 06/22/22 History (Normal Saline Flush 0.9 % injection syringe) tiotropium bromide 18 mcg capsule 1 cap inhalation DAILY 06/22/22 06/22/22 History with inhalation device (Spiriva with HandiHaler) trazodone 150 mg tablet 150 mg PO HS 06/22/22 06/22/22 History tuberculin PPD 5 tub. unit/0.1 mL 0.1 tb unit intradermal DIRECTED 06/22/22 06/22/22 History intradermal injection solution (Tubersol) Patient History Medical History Asthma BPH (benign prostatic hyperplasia) Bronchiolitis due to influenza virus Chronic bronchitis Closed fracture dislocation of ankle DDD (degenerative disc disease) Diverticulitis HTN (hypertension) Hypoxemia Intractable back pain MRSA (methicillin resistant Staphylococcus aureus) negative nasal swab on 06/24/15 and 10/05/18 Obesity Open wound of ankle with complication VIK on CPAP Noncompliant Prolonged QT interval JDw=631 EKG 05/25/19 PTSD (post-traumatic stress disorder) do not wake patient by touching, wake patient by saying name Surgical History History of back surgery back surgery x3 at [facility] History of partial colectomy S/P hernia repair Status post ORIF of fracture of ankle 05/26/[address] Farhan DIEZ with sedation. Family History Other Family history non-contributory Social History Smoking Status: Former smoker Tobacco Type: Smokeless Tobacco (Dip or Chew) Cigarettes Per Day: Uncertain.; Second Hand Exposure: No; Do You Dip or Chew Tobacco: Yes; Hx Alcohol Use: Yes Alcohol type: beer Hx Substance Use: No Preferred Language: Chinese Communication Ability: Effective Communication Ability Comment: PT CONFUSED Bootmaker Required: No Beliefs That Will Affect Care: None marital status: Current Living Situation: Rehab Current Living Situation Comment: with wifr and grandson Feels Safe at Home: Yes Safety Concerns: Feels Safe At This Time Assistive Devices: Walker and Wheelchair Review of Systems Review of Systems: Unobtainable due to cognitive status (Limited, but see HPI) Exam (Neuro) Constitutional: well nourished and + altered mental status Eyes: normal visual branham by confrontation, PERRL and EOM intact bilaterally; no papilledema Cardiovascular: Vessels: no carotid bruit Neurologic: Oriented to:: Person; negative Place or Time Memory: Remote Intact; negative Short Term Intact Attention: negative Span Intact or Concentration Intact Speech Fluency: Limited Comprehension and Other (Minimal spontaneous speech); negative Dysarthria or Dysfluency Fund of Knowledge: Vocabulary; negative Current Events or Past History Cranial Nerves: Normal II, III, IV, , V, VII, VIII, IX, X, XI and XII Motor Strength: Normal Upper Extremities; negative Normal Lower Extremities (Bilateral below the knee amputations noted) Rigidity: None Muscle Bulk/Involuntary Movements: No Involuntary Movements; negative Pill Rolling Tremor or Action Tremor Sensation: Light Touch Intact, Pain/Temperature Intact, Vibration Intact and Proprioception Intact Coordination: Finger-Nose Abnormal; negative Heel-Webber Abnormal (Bilateral below the knee amputations) Deep Tendon Reflexes: Rt Triceps: 1+, Lt Triceps: 1+, Rt Biceps: 1+, Lt Biceps: 1+, Rt Brachioradialis: 1+, Lt Brachioradialis: 1+, Rt Patellar: 1+ and Lt Patellar: 1+ Details: Gait cannot be tested Results & Data Vital Signs (Past 12 Hours) Vital Signs Temp Pulse Resp BP Pulse Ox O2 Del Method O2 Flow Rate 06/23/22 07:42 36.6 C 55 L 18 114/65 98 Nasal Cannula 2 Laboratory Results WBC 4.49, hemoglobin 7.4, hematocrit 25.2, platelet count 205, sodium 139, potassium 4.2, BUN 14, creatinine 0.86, glucose 78, calcium 8.6, magnesium 1.9, AST 10, ALT less than 3, ammonia 25.0, urinalysis with 1+ bacteria, 2+ leukocyte esterase, 3+ blood. Blood culture positive for gram-positive cocci in clusters. Electrocardiogram revealed a normal sinus rhythm, none specific ST and T wave abnormality, heart rate 60 bpm. PG Care Time/CCT Total # of Minutes Spent Total Time Spent with Patient: Total time spent is greater than 50% in coordination of care (as documented) at patient's floor/unit and/or counseling patient: 90 minutes Coding Level of Care Code 12084 INT INP/OBS CARE 3/75MIN Diagnoses Lewy body dementia G31.83; F02.80 Acute confusion R41.0 Somnolence R40.0 Bacteremia R78.81
[2022-06-23] MEDS: VANCOMYCIN HCL 1,250 MG in SODIUM CHLORIDE 0.9% 250 ML IV SCH (17:09)
--- NOTE | 2022-06-23 17:15 | Hospitalist Progress Note ---
Date of Service June 23, 2022 Assessment & Plan (1) Acute alteration in mental status: Plan: Acute metabolic encephalopathy -Presented with increased somnolence, lethargy, worsening tremors and hallucinations. He was discharged from the hospital 9 days prior after lengthy hospitalization for COVID-19 and hypoxic respiratory failure. -Also presented with hematuria and Witt catheter was exchanged in ER, urinalysis with contamination and not likely UTI -Viral respiratory bio fire panel negative, no renal failure or dehydration -With evidence of sinusitis on CT -No leukocytosis, Pro-Lj is normal, afebrile, ammonia is normal, and he is not hypercarbic on his VBG -Now with positive blood cultures which may be a contaminant, but he does have hardware in his back-treat as true bacteremia as below -Was started on Unasyn for sinusitis and vancomycin added for bacteremia-patient now significantly improved mentation suggesting infection was because of his encephalopathy Reduced dose of trazodone and discontinue home cyclobenzaprine for potential sedation/polypharmacy. Could consider reduction in dose of pregabalin. (2) Bacteremia: Plan: 2 bottles in 1 of 2 sets of blood cultures positive for Staphylococcus epidermidis-statistically would be contaminant Possible cause of his encephalopathy Does have hardware in his lower back so could be true bacteremia Repeat blood cultures today Continue empiric vancomycin Consult ID for further input (3) Sinusitis: Plan: Seen on CT head on admission With recent COVID-19, could have secondary bacterial infection Continue Unasyn and vancomycin (4) Anemia: Plan: Chronic Anemia, hemoglobin stable at his baseline 7.4, macrocytic Recent B12 and folate negative, recent iron studies normal Most likely secondary to hydroxyurea effect Would hold hydroxyurea that is presumably being used for essential throm bocytosis? Follow CBC Follows with hematology as an outpatient (5) HTN (hypertension): Plan: Blood pressures are controlled Continue Lasix 20 mg daily, lisinopril 5 mg daily, metoprolol tartrate 12.5 Mg p.o. twice daily (6) VIK on CPAP: Plan: - CPAP qhs - VBG without significant hypercapnia on admit (7) Paroxysmal atrial fibrillation: Plan: Sinus rhythm on admission Continue Eliquis, metoprolol Not on telemetry monitoring (8) PTSD (post-traumatic stress disorder): Plan: No acute issues Continue prazosin, sertraline, trazodone reduced dose, buspirone, and bupropion (9) Lewy body dementia: Plan: Appreciate neurology consultation Reduce dose of carbidopa/levodopa to 1 tablet p.o. 3 times daily from 5 tablets to improve agitation hallucinations Continue memantine (10) BPH (benign prostatic hyperplasia): Plan: - With urinary retention requiring Witt catheter placement - UA contaminated appearing, UC negative -Trial of void in the future -Continue finasteride, prazosin (11) History of back surgery: Plan: With hardware in place (12) Vitamin D deficiency: Plan: Severely low level less than 7 on 06/05/2022 Continue replacement once weekly Plan DVT prophylaxis apixaban Disposition-continued stay on medical/surgical unit. PT/OT consults placed. Patient's requesting patient go to the [place] [facility] for [place]-term placement upon discharge. Appreciate case management arrangements Discussed care with on the phone on 06/23 Admission and Anticipated Discharge Date Admission Date: June 22, 2022 Subjective Patient much improved from previous, alert awake and interactive. Denies pain anywhere. He does not recall coming into the hospital yesterday. I discussed his care with his on the phone. She reports he is back to his baseline mentation and is much improved. Patient moved his bowels earlier this morning, is eating. Denies chest pains or shortness of breath. The nurse noted that the patient came in with a midline that was placed on 06/20 at the nursing facility for IV fluid hydration. Physical Exam Constitutional: WD/WN, vitals as above Neck: trachea midline, no thyromegaly Respiratory: normal respiratory effort, lungs clear to auscultation Cardiovascular: RRR, no murmur, no edema Chest (Breasts): Chest: normal inspection of chest Gastrointestinal (Abdomen): normal bowel sounds, soft, nontender, no hepatosplenomegaly Musculoskeletal: Extremities: + extremities abnormal to inspection (Bilateral BKAs) Skin: no rashes, warm and dry Neurologic: moves all extremities and awake; no focal motor deficits Psychiatric: Orientation: alert, oriented to person, oriented to place and cooperative Genitourinary: no penis abnormality (Witt catheter in place, no hematuria) Results & Data Results & Data Vital Signs (Past 12 Hours) Vital Signs Temp Pulse Resp BP Pulse Ox O2 Del Method O2 Flow Rate 06/23/22 15:09 36.4 C L 55 L 18 114/64 98 Nasal Cannula 2 06/23/22 07:42 36.6 C 55 L 18 114/65 98 Nasal Cannula 2 Laboratory Results CBC, BMP, LFTs, INR reviewed Bio fire negative Blood cultures 2/4 bottles with Staphylococcus epidermidis Urine culture negative PG Care Time/CCT Total # of Minutes Spent Total Time Spent with Patient: Total time spent is greater than 50% in coordination of care (as documented) at patient's floor/unit and/or counseling patient: Coding Level of Care Code 39888 SUB INP/OBS CARE 3/50MIN Diagnoses Acute alteration in mental status R41.82 Bacteremia R78.81 Sinusitis J01.90 Chronicity: acute Recurrence: non-recurrent Sinusitis location: unspecified location Anemia D64.9 HTN (hypertension) I10 Hypertension type: essential hypertension VIK on CPAP G47.33; Z99.89 Paroxysmal atrial fibrillation I48.0 PTSD (post-traumatic stress disorder) F43.10 Lewy body dementia G31.83; F02.80 BPH (benign prostatic hyperplasia) N40.0 History of back surgery Z98.890 Vitamin D deficiency E55.9 (3) Sinusitis Chronicity: acute Recurrence: non-recurrent Sinusitis location: unspecified location Qualified Code(s): J01.90 - Acute sinusitis, unspecified (5) HTN (hypertension) Hypertension type: essential hypertension Qualified Code(s): I10 - Essential (primary) hypertension
[2022-06-23] MEDS: PRAZOSIN HCL 1 MG CAP PO SCH (21:18)
[2022-06-23] MEDS: traZODone HCL 50 MG TAB PO SCH (21:19)
[2022-06-24] MEDS: AMPICILLIN/SULBACTAM SOD 3,000 MG in 0.9 % SODIUM CHLORIDE 100 ML IV SCH ×2 (05:03→10:34)
[2022-06-24] MEDS: VANCOMYCIN HCL 1,250 MG in SODIUM CHLORIDE 0.9% 250 ML IV SCH (05:44)
[2022-06-24 06:31] LABS: Eosinophils # (auto) 0.06 K/uL (0-0.50); Eosinophils % (auto) 1.6 %; Hematocrit (blood only) 24.2 % (42.0-52.0); Hemoglobin 7.4 g/dl (14.0-18.0); Immature Granulocytes # (auto) 0.01 K/uL (0.01-0.20); Immature Granulocytes % (auto) 0.3 %; Lymphocytes # (auto) 0.54 K/uL (1.2-3.4); Lymphocytes % (auto) 14.6 %; Mean Corpuscular Hemoglobin 29.8 pg (25.0-34.0); Mean Corpuscular Hgb Conc 30.6 g/dL (32.0-36.0); Mean Corpuscular Volume 97.6 fL (80.0-100.0); Mean Platelet Volume 10.9 fL (9.4-12.4); Monocytes # (auto) 0.15 K/uL (0.11-0.59); Neutrophils # (auto) 2.95 K/uL (1.40-6.50); Neutrophils % (auto) 79.5 %; Platelet Count 225 K/uL (130-400); RDW Coefficient of Variation 16.9 % (11.5-14.5); RDW Standard Deviation 59.4 fL (36.4-46.3); Red Blood Count 2.48 M/uL (4.70-6.10); White Blood Count 3.71 K/ul (4.8-10.8)
[2022-06-24 06:49] LABS: Anisocytosis Present
[2022-06-24 07:51] LABS: Alanine Aminotransferase < 3 U/L (7-52); Albumin Globulin Ratio 1.1 (0.9-2); Albumin Level 3.1 gm/dl (3.4-5.0); Alkaline Phosphatase 50 U/L (34-104); Anion Gap 9 (3-11); Aspartate Aminotransferase 7 U/L (13-39); BUN Creatinine Ratio 15.4 (10-20); Bilirubin,Total 0.4 mg/dl (0.2-1.0); Blood Urea Nitrogen 16 mg/dl (6-23); C Reactive Protein 7.98 mg/dl (0-0.5); Calcium 8.4 mg/dl (8.6-10.3); Carbon Dioxide 25 mmol/L (21-32); Chloride 106 mmol/L (98-107); Creatinine Clr Calc Pharmacy 61.7 ml/min; Est GFR (Non-African American) 69.9 ml/min; Globulin 2.7 gm/dl (2.5-4.0); Glucose 76 mg/dl (70-99(Fasting)); Iron 32 mcg/dl (35-175); Magnesium 1.7 mg/dl (1.7-2.4); Potassium 3.8 mmol/L (3.5-5.1); Sodium 140 mmol/L (136-145); Total Iron Binding Cap Calc 183 mcg/dl (250-450); Total Protein 5.8 gm/dl (6.0-8.3); Transferrin (FE) Percent Satur 17 % (20-50); Unsaturated Iron Binding Cap 151 mcg/dl (155-355)
[2022-06-24] MEDS: MEMANTINE HCL 5 MG TAB PO SCH (08:18)
[2022-06-24] MEDS: lisinopril 5 MG TAB PO SCH (08:18)
[2022-06-24] MEDS: MONTELUKAST SODIUM 10 MG TABLET PO SCH (08:18)
[2022-06-24] MEDS: ATORVASTATIN 10 MG TAB PO SCH (08:18)
[2022-06-24] MEDS: FUROSEMIDE 20 MG TAB PO SCH (08:18)
[2022-06-24] MEDS: buPROPion XL 300 MG TABCR PO SCH (08:19)
[2022-06-24] MEDS: CARBIDOPA/LEVODOPA 25/100MG TAB PO SCH ×3 (08:19→21:07)
[2022-06-24] MEDS: SERTRALINE HCL 100 MG TABLET PO SCH ×2 (08:19→21:13)
[2022-06-24] MEDS: PANTOprazole 40 MG TAB PO SCH ×2 (08:19→21:12)
[2022-06-24] MEDS: METOPROLOL TARTRATE 25 MG TAB PO SCH ×2 (08:19→21:14)
[2022-06-24] MEDS: APIXABAN 5 MG TABLET PO SCH ×2 (08:20→21:14)
[2022-06-24] MEDS: busPIRone 7.5 MG TAB PO SCH ×3 (08:20→21:14)
[2022-06-24] MEDS: FINASTERIDE 5 MG TAB PO SCH (08:36)
[2022-06-24] MEDS: PREGABALIN 150 MG CAP PO SCH ×2 (08:36→21:06)
--- NOTE | 2022-06-24 10:08 | Infectious Disease Consult ---
Date of Consultation June 24, 2022 Assessment & Plan (1) Bacteremia: (2) Acute confusion: (3) Sinusitis: Plan 77 yo M with a history of Lewy body dementia, chronic anemia on hydroxyurea, paroxysmal Afib on Eliquis, asthma, VIK on CPAP (noncompliant), PTSD, bilateral BKA, back surgery with hardware in place, recent discharge on 06/13 from a hospitalization for COVID-19 who presented on 06/22 with hematuria after rooney placement and altered mental status, found to have Staph epi bacteremia and possible sinusitis. On presentation, he was afebrile, VSS without leukocytosis, procalcitonin < 0.05. UA with 10-30 WBCs, > 30 RBCs, >30 epi, 1+ bacteria, and UCx negative. BCx grew MRSE in 1/2 sets (2/4 bottles). RVP negative. CXR had no acute findings. CT head showed paranasal sinus disease c/f sinusitis. His rooney was exchanged, with improvement in hematuria. Pt was started on Unasyn for sinusitis and vanc for bacteremia. The Staph epi bacteremia could be a contaminant vs a true bacteremia from a midline which was placed on 06/20 at his nursing facility for IVF hydration. The midline was removed on 06/23. He does have hardware in his lumbar spine from prior surgery, but pt does not have back pain and there is no concern for infection there by physical exam on 06/24. Micro: 06/23 BCx x2: pending 06/23 MRSA nares: neg 06/22 UCx: NGTD 06/22 BCx x2: coag neg Staph not lugdunensis #1 and #2 Abx: Vanc 06/23 - Unasyn 06/22 - Cefepime 06/22 Problems: #Staph epi bacteremia: contaminant vs from midline #Sinusitis #Altered mental status Recommendations: -Follow-up 06/23 BCx for clearance -If 06/23 BCx become positive, would repeat sets of blood cultures until clearance confirmed -If repeat blood cultures remain negative, anticipate being able to treat the Staph epi bacteremia for a 5-7 day course from 06/23 (or first date of cleared blood cultures and when midline was removed). Can treat with vancomycin (goal trough 15-20), or for ease of dosing, can transition to daptomycin 400 mg IV daily (per discussion with ID pharmacist, dosing 6 mg/kg based on weight of 67 kg). Ordered a baseline CK for 4 AM in case he is going on dapto. -Please re-involve ID if pt has repeat positive blood cultures Discussed with primary team. Will sign off. If questions or concerns arise, please contact the Infectious Disease Call Center . Consultation Information Consultation was provided via telemedicine using two-way real-time interactive telecommunication between the patient and the telemedicine provider. For the duration of the visit, the provider was performing the assessment from a different facility than the patient. This includesuse of bluetooth stethoscope forauscultationperformed by the telepresenter that the telemedicine provider can hear if described in the physical exam. Dye Mixer contact information: Please call [facility] . (Phone Number For Physician Use Only) After establishing a telemedicine visit, patient was: Patient was verified with two unique identifiers, Patient/authorized rep acknowledged consent and understanding and Gave permission to continue telehealth session Time Spent with Patient: Initial => 40 min History of Present Illness Reason for Consultation: Staph epi bacteremia Attending Physician: Анна St MD History of Present Illness 77 yo M with a history of Lewy body dementia, chronic anemia on hydroxyurea, paroxysmal Afib on Eliquis, asthma, VIK on CPAP (noncompliant), PTSD, bilateral BKA, back surgery with hardware in place, recent COVID-19 who presented on 06/22 with hematuria after rooney placement and altered mental status. On presentation, he was afebrile, VSS. Labs showed WBC 5.5, Hb 9, ABG with pCO2 44, Cr 1.12, procalcitonin < 0.05. UA with 10-30 WBCs, > 30 RBCs, >30 epi, 1+ bacteria. BCx were collected. RVP negative. CXR had no acute findings. CT head showed paranasal sinus disease with mucosal thickening and an air-fluid level in R maxillary antrum, mild to moderate mucosal thickening in ethmoid sinuses, and trace mucosal thickening within sphenoid and L maxillary sinuses. Pt had been recently discharged on 06/13 from a hospitalization for COVID-19. History was difficult to obtain as the patient was sleepy and confused. Per H&P, reported that at baseline, pt is oriented to his name and , generally the year, and can carry on some of a conversation. However over the last week at rehab, he had been weaker, more fatigued, low BP with rehab and sitting up, complaining of pain with urination. His rooney was exchanged, with improvement in hematuria. Pt was started on Unasyn for sinusitis/potential UTI. BCx grew GPCs in clusters in 1 of 2 sets, so vancomycin was started on 06/23. BCID PCR panel is positive for Staph epi, with methicillin resistance. UCx NGTD. Pt had a midline placed on 06/20 at his nursing facility for IV fluid hydration. This has since been removed. He reports prior history of back surgery with hardware in place, but denies back pain. Reports having a lot of congestion recently, which is "breaking up" now. Allergies Allergy/AdvReac Type Severity Reaction Status Date / Time ibuprofen Allergy Intermediate HIVES Verified 06/22/22 15:25 Home Medications Medication Instructions Recorded Confirmed Type Med Pass 60 ml PO BID 06/22/22 06/22/22 History acetaminophen 325 mg tablet 650 mg PO Q4 PRN .Mild - severe 06/22/22 06/22/22 History (Tylenol) pain, fever albuterol sulfate 90 mcg/actuation 2 puff inhalation Q4 PRN Shortness 06/22/22 06/22/22 History aerosol inhaler Of Breath Or Wheezing apixaban 5 mg tablet (Eliquis) 5 mg PO AMHS 06/22/22 06/22/22 History atorvastatin 10 mg tablet 10 mg PO QAM 06/22/22 06/22/22 History budesonide-formoterol HFA 160 2 puff inhalation BID 06/22/22 06/22/22 History mcg-4.5 mcg/actuation aerosol inhaler bupropion HCl 300 mg 24 hr tablet, 300 mg PO DAILY 06/22/22 06/22/22 History extended release buspirone 7.5 mg tablet 7.5 mg PO TID 06/22/22 06/22/22 History carbidopa 25 mg-levodopa 100 mg 1 tab PO .NOON 06/22/22 06/22/22 History tablet carbidopa 25 mg-levodopa 100 mg 2 tab PO AMHS 06/22/22 06/22/22 History tablet cyclobenzaprine 10 mg tablet 10 mg PO AMHS 06/22/22 06/22/22 History ergocalciferol (vitamin D2) 1,250 1,250 mcg PO WE 06/22/22 06/22/22 History mcg (50,000 unit) capsule (Vitamin D2) finasteride 5 mg tablet 5 mg PO QAM 06/22/22 06/22/22 History fluconazole 100 mg tablet 100 mg PO QAM 06/22/22 06/22/22 History furosemide 20 mg tablet 20 mg PO DAILY 06/22/22 06/22/22 History hydroxyurea 500 mg capsule 100 mg PO .MONDAY THRU Monday06/22/22 06/22/22 Hi story magnesium hydroxide 400 mg/5 mL 30 ml PO .DAILY UD PRN Constipation 06/22/22 06/22/22 History oral suspension (Milk of Magnesia) memantine 5 mg tablet 5 mg PO QAM 06/22/22 06/22/22 History metoprolol tartrate 25 mg tablet 12.5 mg PO BID 06/22/22 06/22/22 History montelukast 10 mg tablet 10 mg PO HS 06/22/22 06/22/22 History pantoprazole 40 mg tablet,delayed 40 mg PO AMHS 06/22/22 06/22/22 History release prazosin 5 mg capsule 5 mg PO HS 06/22/22 06/22/22 History pregabalin 150 mg capsule 150 mg PO AMHS 06/22/22 06/22/22 History sertraline 100 mg tablet 100 mg PO AMHS 06/22/22 06/22/22 History sodium chloride 0.9 % (flush) 3 ml IV Q12 06/22/22 06/22/22 History (Normal Saline Flush 0.9 % injection syringe) tiotropium bromide 18 mcg capsule 1 cap inhalation DAILY 06/22/22 06/22/22 History with inhalation device (Spiriva with HandiHaler) trazodone 150 mg tablet 150 mg PO HS 06/22/22 06/22/22 History tuberculin PPD 5 tub. unit/0.1 mL 0.1 tb unit intradermal DIRECTED 06/22/22 06/22/22 History intradermal injection solution (Tubersol) Patient History Medical History (Updated 06/23/22 @ 15:15 by Johnathon Lee MD) Asthma BPH (benign prostatic hyperplasia) Bronchiolitis due to influenza virus Chronic bronchitis Closed fracture dislocation of ankle DDD (degenerative disc disease) Diverticulitis HTN (hypertension) Hypoxemia Intractable back pain MRSA (methicillin resistant Staphylococcus aureus) negative nasal swab on 06/24/15 and 10/05/18 Obesity Open wound of ankle with complication VKI on CPAP Noncompliant Prolonged QT interval CYj=267 EKG 05/25/19 PTSD (post-traumatic stress disorder) do not wake patient by touching, wake patient by saying name Surgical History (Updated 06/23/22 @ 17:[address] MD) History of back surgery back surgery x3 at [facility] History of partial colectomy S/P bilateral BKA (below knee amputation) S/P hernia repair Status post ORIF of fracture of ankle 05/26/[address] Farhan DIEZ with sedation. Family History Other Family history non-contributory Social History Smoking Status: Former smoker Tobacco Type: Smokeless Tobacco (Dip or Chew) Cigarettes Per Day: Uncertain.; Second Hand Exposure: No; Do You Dip or Chew Tobacco: Yes; Hx Alcohol Use: Yes Alcohol type: beer Hx Substance Use: No Preferred Language: Croatian Communication Ability: Effective Communication Ability Comment: PT CONFUSED Manager Music Required: No Beliefs That Will Affect Care: None marital status: Current Living Situation: Rehab Current Living Situation Comment: with wifr and grandson Feels Safe at Home: Yes Safety Concerns: Feels Safe At This Time Assistive Devices: Walker and Wheelchair Review of System A complete ROS was performed and is negative except as mentioned in the HPI. Physical Exam Physical Exam: GEN: laying in bed in NAD. HEENT: No sinus tenderness to palpation RESP: No increased work of breathing ABD: soft, non-distended. Non-tender to palpation. : rooney in place without hematuria EXT: s/p bilateral BKA. No edema SKIN: No lesions or rashes on exposed skin. BACK: No spinal tenderness. Prior surgical scar without surrounding erythema NEURO: Alert, answers all questions appropriately. PSYCH: Normal mood, affect appropriate. Results & Data Vital Signs (Past 12 Hours) Vital Signs Temp Pulse Resp BP Pulse Ox O2 Del Method O2 Flow Rate 06/24/22 09:08 Room Air 06/24/22 08:41 96 Room Air 06/24/22 07:35 36.8 C 61 18 105/62 96 Nasal Cannula 3 06/23/22 22:26 36.8 C 60 20 116/71 93 Room Air Laboratory Results Short CBC 06/24/22 Range/Units 06:09 WBC 3.71 L (4.8-10.8) K/ul Hgb 7.4 L (14.0-18.0) g/dl Hct 24.2 L (42.0-52.0) % Plt Count 225 (130-400) K/uL BMP 06/24/22 06:09 Sodium 140 Potassium 3.8 Chloride 106 Carbon Dioxide 25 BUN 16 Creatinine 1.04 Glucose 76 Calcium 8.4 L Liver Function 06/24/22 Range/Units 06:09 Total Bilirubin 0.4 (0.2-1.0) mg/dl AST 7 L (13-39) U/L ALT < 3 L (7-52) U/L Alkaline Phosphatase 50 (34-104) U/L Albumin 3.1 L (3.4-5.0) gm/dl Diagnostic Findings Chest X-Ray 06/22/22 10:16 XR chest 1V portable HISTORY: Sepsis COMPARISON: Chest 06/06/2022. FINDINGS: No pneumothorax. No pleural effusions. There are low lung volumes. The cardiac silhouette is top normal in size. The lungs are clear. Degenerative changes again noted within the right shoulder. IMPRESSION: No significant change compared to the prior study. No acute process. ACT 112: Negative or not required by law. Electronically signed by: Will Barry M.D. 06/22/2022 11:[address] 06/22/22 10:19 CT SCAN OF THE BRAIN WITHOUT IV CONTRAST CLINICAL HISTORY: Delirium. COMPARISON STUDY: CT of the brain dated 06/08/2020. TECHNIQUE: Unenhanced axial CT scan of the brain is performed from the vertex to the skull base. A dose lowering technique was utilized adhering to the principles of ALARA. The vertex was scanned twice due to motion artifact. CT DOSE: 844.62 mGy.cm FINDINGS: Brain parenchyma: There is age-related involutional change noting mild subc ortical and periventricular microangiopathic disease. There is no hemorrhage, mass effect, or evidence of acute territorial ischemia by CT criteria. Huang- white matter differentiation is preserved. No extra-axial fluid collection is seen. Ventricles, sulci, cisterns: Prominent secondary to involutional change. Intracranial vasculature: There is atherosclerotic calcification of the cavernous carotid and vertebral arteries. Calvarium: Unremarkable. Sinuses and mastoids: There is mucosal thickening and an air-fluid level in the right maxillary antrum. Mild to moderate mucosal thickening seen within the ethmoid sinuses. There is trace mucosal thickening within the sphenoid and left maxillary sinuses. The mastoid air cells are well pneumatized. Orbits: The bony orbits are grossly intact. Soft tissues: A 6 mm metallic foreign body is noted in the left temporoparietal scalp. IMPRESSION: 1. There is no hemorrhage, mass effect, or evidence of acute territorial ischemia by CT criteria. 2. Paranasal sinus disease as above. Correlate clinically for evidence of acute sinusitis. ACT 112: Negative or not required by law. Electronically signed by: Joel Prater M.D. 06/22/2022 10:51 AM Medications Administered Current Inpatient Medications Acetaminophen (Acetaminophen 325 Mg Tab) 650 mg PO Q4H PRN PRN Reason: pain/fever Stop: 07/22/22 20:29 Albuterol (Albuterol Hfa 8 Gm Inhaler) 2 puffs INH Q4 PRN PRN Reason: Shortness Of Breath Or Wheezing Stop: 07/22/22 20:29 Apixaban (Apixaban 5 Mg Tablet) 5 mg PO BID MARIBETH Stop: 07/22/22 20:59 Last Admin: 06/24/22 08:20 Dose: 5 mg Atorvastatin Calcium (Atorvastatin 10 Mg Tab) 10 mg PO DAILY MARIBETH Stop: 07/23/22 08:59 Last Admin: 06/24/22 08:18 Dose: 10 mg Bupropion HCl (Bupropion Xl 300 Mg Tabcr) 300 mg PO QAM MARIBETH Stop: 07/23/22 08:59 Last Admin: 06/24/22 08:19 Dose: 300 mg Buspirone HCl (Buspirone 7.5 Mg Tab) 7.5 mg PO TID MARIBETH Stop: 07/22/22 20:59 Last Admin: 06/24/22 08:20 Dose: 7.5 mg Carbidopa/Levodopa (Carbidopa/Levodopa 25/100mg Tab) 1 tab PO TID [facility] Stop: 07/23/22 20:59 Last Admin: 06/24/22 08:19 Dose: 1 tab Ergocalciferol (Ergocalciferol 50,000 Units 1250 Mcg Cap) 50,000 units PO We@0900 [facility] Stop: 07/29/22 08:59 Finasteride (Finasteride 5 Mg Tab) 5 mg PO QAM [facility] Stop: 07/24/22 08:59 Last Admin: 06/24/22 08:36 Dose: 5 mg Fluticasone/Vilanterol (Fluticasone/Vilanterol 100/25mcg 14 Puffs/Inhaler) 1 puffs INH DAILY PRN PRN Reason: SOB/WHEEZING Stop: 07/23/22 08:59 Folic Acid (Folic Acid 1 Mg Tab) 1 mg PO QAM [facility] Stop: 07/24/22 09:59 Furosemide (Furosemide 20 Mg Tab) 20 mg PO DAILY [facility] Stop: 07/23/22 08:59 Last Admin: 06/24/22 08:18 Dose: 20 mg Heparin Sodium (Beef Lung) (Heparin 10 Unit/Ml 5 Ml Flush) 5 ml FLUSH PRN PRN PRN Reason: Flush Stop: 07/23/22 06:27 Ampicillin Sodium/Sulbactam Sodium 3,000 mg/ Sodium Chloride 108 mls @ 200 mls/hr IV Q6H [facility]; Protocol Stop: 06/24/22 20:29 Last Infusion: 06/24/22 05:47 Dose: Infused Vancomycin HCl 1,250 mg/ (Sodium Chloride) 275 mls @ 200 mls/hr IV Q12H [facility]; Protocol Stop: 07/07/22 16:59 Last Infusion: 06/24/22 07:47 Dose: Infused Lisinopril (Lisinopril 5 Mg Tab) 5 mg PO DAILY [facility] Stop: 07/23/22 08:59 Last Admin: 06/24/22 08:18 Dose: 5 mg Memantine (Memantine Hcl 5 Mg Tab) 5 mg PO DAILY [facility] Stop: 07/23/22 08:59 Last Admin: 06/24/22 08:18 Dose: 5 mg Metoprolol Tartrate (Metoprolol Tartrate 25 Mg Tab) 12.5 mg PO BID [facility]ETH Stop: 07/22/22 20:59 Last Admin: 06/24/22 08:19 Dose: 12.5 mg Miscellaneous Information (Vancomycin Consult Active) 1 each N/A UD PRN PRN Reason: Consult Stop: 07/23/22 06:32 Montelukast Sodium (Montelukast Sodium 10 Mg Tablet) 10 mg PO DAILY [facility] Stop: 07/23/22 08:59 Last Admin: 06/24/22 08:18 Dose: 10 mg Pantoprazole Sodium (Pantoprazole 40 Mg Tab) 40 mg PO BID [facility]ETH Stop: 07/22/22 20:59 Last Admin: 06/24/22 08:19 Dose: 40 mg Prazosin HCl (Prazosin Hcl 1 Mg Cap) 5 mg PO HS [facility] Stop: 07/22/22 20:59 Last Admin: 06/23/22 21:18 Dose: 5 mg Pregabalin (Pregabalin 150 Mg Cap) 150 mg PO BID [facility] Stop: 07/22/22 20:59 Last Admin: 06/24/22 08:36 Dose: 150 mg Sertraline HCl (Sertraline Hcl 100 Mg Tablet) 100 mg PO BID [facility] Stop: 07/22/22 20:59 Last Admin: 06/24/22 08:19 Dose: 100 mg Trazodone HCl (Trazodone Hcl 50 Mg Tab) 50 mg PO HS [facility] Stop: 07/22/22 20:59 Last Admin: 06/23/22 21:19 Dose: 50 mg Umeclidinium [place] (Umeclidinium [place] 62.5mcg/Blister 7 Puffs/Inhaler) 1 puffs INH DAILY PRN PRN Reason: SOB/WHEEZING Stop: 07/23/22 08:59 (3) Sinusitis Chronicity: acute Recurrence: non-recurrent Sinusitis location: unspecified location Qualified Code(s): J01.90 - Acute sinusitis, unspecified
[2022-06-24] MEDS: FOLIC ACID 1 MG TAB PO SCH (10:34)
--- NOTE | 2022-06-24 14:36 | Pharmacy Report ---
Pharmacy PK ABX Note - Date of Service June 24, 2022 - Assessment and Plan Assessment 77 year old M receiving Vancomycin for treatment of Bacteremia. Pertinent microbiologic data includes: [Negative MRSA Nasal Swab]. Blood cultures growing coag negative staph x1 set. PCR report indicates MRSA. Repeat blood cultures from 06/23/22 pending. Day #2 of antimicrobial therapy. Plan Vancomycin * Patient was receiving 1250 mg IV every 12 hours * Random Vanc level obtained at 13:00 resulted as 19.2 mcg/mL. This is predicted to achieve target AUC/DALLIN of greater than 600 mg/L.hr * Dosing was therefore reduced to Vancomycin 1000 mg IV every 12 hours starting today at 18:00 * Predicted AUC at steady state with new regimen: 568 mg/L.hr * Repeat random level ordered for: 06/25/22 at 14:00 before dose at 18:00 Pharmacy will continue to follow and will adjust dose/frequency as necessary. Thank you. Pharmacy has transitioned to AUC monitoring for vancomycin. AUC/DALLIN is the preferred PK/PD target and is associated with decreased risk of nephrotoxicity compared to traditional trough targets.
--- NOTE | 2022-06-24 14:59 | Hospitalist Progress Note ---
Date of Service June 24, 2022 Assessment & Plan (1) Acute alteration in mental status: Plan: Acute metabolic encephalopathy -Presented with increased somnolence, lethargy, worsening tremors and hallucinations. He was discharged from the hospital 9 days prior after lengthy hospitalization for COVID-19 and hypoxic respiratory failure. -Also presented with hematuria and Witt catheter was exchanged in ER, urinalysis with contamination and not likely UTI -Viral respiratory bio fire panel negative, no renal failure or dehydration -With evidence of sinusitis on CT -No leukocytosis, Pro-Lj is normal, afebrile, ammonia is normal, and he is not hypercarbic on his VBG -Now with Staph bacteremia, likely from recent midline placed -Was started on Unasyn for sinusitis and vancomycin added for bacteremia-patient now significantly improved mentation suggesting infection was because of his encephalopathy Reduced dose of trazodone and discontinue home cyclobenzaprine for potential sedation/polypharmacy. Could consider reduction in dose of pregabalin but not needed at this point (2) Bacteremia: Plan: 2/4 bottles (1 set) of blood cultures positive for Staphylococcus epidermidis- statistically would be contaminant but given midline recently and encephalopahty, likely true infection Appreciate ID consult Does have hardware in his lower back but no pain or signs of infection there Repeat blood cultures 06/23 remain NGTD Continue vancomycin x 7 days after last neg BCxs Midline removed 06/23 (3) Sinusitis: Plan: Seen on CT head on admission With recent COVID-19, could have secondary bacterial infection Started on Unasyn and now convert to po Augmentin to finish out 10 day course (4) Anemia: Plan: Chronic Anemia, hemoglobin stable at his baseline 7.4, macrocytic Most likely secondary to hydroxyurea effect, but also with Fe-deficiency--> transferrin sat 17% FOlate deficient borderline at 5.8--> start folic acid 1mg po daily -hold hydroxyurea that is presumably being used for essential thrombocytosis? Follow CBC Follows with hematology as an outpatient (5) HTN (hypertension): Plan: Blood pressures are controlled Continue Lasix 20 mg daily, lisinopril 5 mg daily, metoprolol tartrate 12.5 Mg p.o. twice daily (6) VIK on CPAP: Plan: - CPAP qhs - VBG without significant hypercapnia on admit (7) Paroxysmal atrial fibrillation: Plan: Sinus rhythm on admission and regular on exam Continue Eliquis, metoprolol Not on telemetry monitoring (8) PTSD (post-traumatic stress disorder): Plan: No acute issues Continue prazosin, sertraline, trazodone reduced dose, buspirone, and bupropion (9) Lewy body dementia: Plan: Appreciate neurology consultation Reduced dose of carbidopa/levodopa to 1 tablet p.o. 3 times daily from 5 tablets to improve agitation hallucinations Continue memantine (10) BPH (benign prostatic hyperplasia): Plan: - With urinary retention requiring Witt catheter placement - UA contaminated appearing, UC negative -Trial of void in the future -Continue finasteride, prazosin (11) History of back surgery: Plan: With hardware in place (12) Vitamin D deficiency: Plan: Severely low level less than 7 on 06/05/2022 Continue replacement once weekly Plan DVT prophylaxis apixaban Disposition-continued stay on medical/surgical unit. PT/OT consults placed. Patient's [facility] upon discharge. Appreciate case management arrangements Plan to [facility] to [facility] out [facility] abx [facility]--> they cannot accept till Monday Discussed care with on the phone on 06/23 Admission and Anticipated Discharge Date Admission Date: June 24, 2022 Subjective Pt has no complaints. Moved bowels this AM, eating. No pain anywhere. Discussed his case with ID. Physical Exam Constitutional: WD/WN, vitals as above Neck: trachea midline, no thyromegaly Respiratory: normal respiratory effort, lungs clear to auscultation Cardiovascular: RRR, no murmur, no edema Chest (Breasts): Chest: normal inspection of chest Gastrointestinal (Abdomen): normal bowel sounds, soft, nontender, no hepatosplenomegaly Musculoskeletal: Extremities: + extremities abnormal to inspection (Bilateral BKAs) Skin: no rashes, warm and dry Neurologic: moves all extremities and awake; no focal motor deficits Psychiatric: Orientation: alert, oriented to person, oriented to place and cooperative Genitourinary: no penis abnormality (Witt catheter in place, no hematuria) Results & Data Results & Data Vital Signs (Past 12 Hours) Vital Signs Temp Pulse Resp BP Pulse Ox O2 Del Method O2 Flow Rate 06/24/22 09:08 Room Air 06/24/22 08:41 96 Room Air 06/24/22 07:35 36.8 C 61 18 105/62 96 Nasal Cannula 3 Laboratory Results CBC, BMP, iron studies, B12, folate, TSH, procal, ESR, CRP, and Blood cxs all reviewed PG Care Time/CCT Total # of Minutes Spent Total Time Spent with Patient: Total time spent is greater than 50% in coordination of care (as documented) at patient's floor/unit and/or counseling patient: Coding Level of Care Code 60315 SUB INP/OBS CARE 3/50MIN Diagnoses Acute alteration in mental status R41.82 Bacteremia R78.81 Sinusitis J01.90 Chronicity: acute Recurrence: non-recurrent Sinusitis location: unspecified location Anemia D64.9 HTN (hypertension) I10 Hypertension type: essential hypertension VIK on CPAP G47.33; Z99.89 Paroxysmal atrial fibrillation I48.0 PTSD (post-traumatic stress disorder) F43.10 Lewy body dementia G31.83; F02.80 BPH (benign prostatic hyperplasia) N40.0 History of back surgery Z98.890 Vitamin D deficiency E55.9 (3) Sinusitis Chronicity: acute Recurrence: non-recurrent Sinusitis location: unspecified location Qualified Code(s): J01.90 - Acute sinusitis, unspecified (5) HTN (hypertension) Hypertension type: essential hypertension Qualified Code(s): I10 - Essential (primary) hypertension
[2022-06-24] MEDS ORDERED: IRON SUCROSE 300 MG in SODIUM CHLORIDE 0.9% 250 ML IV ONE (15:15)
[2022-06-24] MEDS: AMOXICILLIN/CLAVULANATE 875 MG TAB PO SCH (15:37)
[2022-06-24] MEDS: VANCOMYCIN HCL 1,000 MG in SODIUM CHLORIDE 0.9% 250 ML IV SCH (17:51)
[2022-06-24] MEDS: traZODone HCL 50 MG TAB PO SCH (21:13)
[2022-06-24] MEDS: PRAZOSIN HCL 1 MG CAP PO SCH (21:15)
[2022-06-25] MEDS: VANCOMYCIN HCL 1,000 MG in SODIUM CHLORIDE 0.9% 250 ML IV SCH ×2 (05:12→19:43)
[2022-06-25 06:30] LABS: Basophils # (auto) 0.01 K/uL (0-0.2); Basophils % (auto) 0.3 %; Eosinophils # (auto) 0.06 K/uL (0-0.50); Hematocrit (blood only) 25.5 % (42.0-52.0); Hemoglobin 7.7 g/dl (14.0-18.0); Immature Granulocytes # (auto) 0.02 K/uL (0.01-0.20); Immature Granulocytes % (auto) 0.7 %; Lymphocytes # (auto) 0.57 K/uL (1.2-3.4); Lymphocytes % (auto) 18.7 %; Mean Corpuscular Hemoglobin 28.8 pg (25.0-34.0); Mean Corpuscular Hgb Conc 30.2 g/dL (32.0-36.0); Mean Corpuscular Volume 95.5 fL (80.0-100.0); Mean Platelet Volume 10.5 fL (9.4-12.4); Monocytes # (auto) 0.22 K/uL (0.11-0.59); Monocytes % (auto) 7.2 %; Neutrophils # (auto) 2.17 K/uL (1.40-6.50); Neutrophils % (auto) 71.1 %; Platelet Count 255 K/uL (130-400); RDW Coefficient of Variation 16.4 % (11.5-14.5); RDW Standard Deviation 57.4 fL (36.4-46.3); Red Blood Count 2.67 M/uL (4.70-6.10); White Blood Count 3.05 K/ul (4.8-10.8)
[2022-06-25 06:31] LABS: Anion Gap 6 (3-11); BUN Creatinine Ratio 12.8 (10-20); Blood Urea Nitrogen 11 mg/dl (6-23); Calcium 8.1 mg/dl (8.6-10.3); Carbon Dioxide 27 mmol/L (21-32); Chloride 109 mmol/L (98-107); Creatinine Clr Calc Pharmacy 74.6 ml/min; Est GFR (African American) 98.3 ml/min; Est GFR (Non-African American) 84.8 ml/min; Glucose 75 mg/dl (70-99(Fasting)); Potassium 3.7 mmol/L (3.5-5.1); Sodium 142 mmol/L (136-145)
[2022-06-25 06:32] LABS: Creatine Kinase < 10 U/L (30-223)
[2022-06-25 07:11] LABS: RBC Morphology Unremarkable
[2022-06-25] MEDS: CARBIDOPA/LEVODOPA 25/100MG TAB PO SCH ×3 (08:37→21:32)
[2022-06-25] MEDS: busPIRone 7.5 MG TAB PO SCH ×3 (08:37→21:32)
[2022-06-25] MEDS: APIXABAN 5 MG TABLET PO SCH ×2 (08:38→21:32)
[2022-06-25] MEDS: PANTOprazole 40 MG TAB PO SCH ×2 (08:38→21:33)
[2022-06-25] MEDS: METOPROLOL TARTRATE 25 MG TAB PO SCH ×2 (08:38→21:33)
[2022-06-25] MEDS: SERTRALINE HCL 100 MG TABLET PO SCH ×2 (08:38→21:34)
[2022-06-25] MEDS: FINASTERIDE 5 MG TAB PO SCH (08:38)
[2022-06-25] MEDS: AMOXICILLIN/CLAVULANATE 875 MG TAB PO SCH ×2 (08:38→16:57)
[2022-06-25] MEDS: FUROSEMIDE 20 MG TAB PO SCH (08:39)
[2022-06-25] MEDS: ATORVASTATIN 10 MG TAB PO SCH (08:39)
[2022-06-25] MEDS: MEMANTINE HCL 5 MG TAB PO SCH (08:39)
[2022-06-25] MEDS: buPROPion XL 300 MG TABCR PO SCH (08:39)
[2022-06-25] MEDS: MONTELUKAST SODIUM 10 MG TABLET PO SCH (08:39)
[2022-06-25] MEDS: lisinopril 5 MG TAB PO SCH (08:39)
[2022-06-25] MEDS: FOLIC ACID 1 MG TAB PO SCH (08:39)
[2022-06-25] MEDS: PREGABALIN 150 MG CAP PO SCH ×2 (08:41→21:34)
--- NOTE | 2022-06-25 10:43 | Pharmacy Report ---
Pharmacy PK ABX Note - Date of Service June 25, 2022 - Assessment and Plan Assessment * 77 year old M receiving Augmentin and vancomycin for treatment of sinusitis and possible bacteremia. * Pertinent microbiologic data includes: * 1 of 2 blood cultures from 06/22 growing coag negative staph. PCR report indicates Staph epidermidis with oxacillin resistance. * Repeat blood cultures from 06/23 - no growth * Provider note 06/24 - Staph epidermidis in 1 of 2 blood cultures is usually a contaminant, but given recent midline insertion and improvement in encephalopathy on antibiotics, continue above for now. ID consult pending. * Renal function continues to gradually improve, now close to baseline. Plan Vancomycin * Goal AUC 400-600 mg/L.hr * Random level of 19.5 mcg/mL today associated with a therapeutic AUC of 487 mg/L.hr * Continue vancomycin 1000 mg IV every 12 hours * Will obtain repeat random level rather soon at 36 hours due to improvement in renal function. Random with AM labs 06/27. Pharmacy will continue to follow and will adjust dose/frequency as necessary. Thank you. Pharmacy has transitioned to AUC monitoring for vancomycin. AUC/DALLIN is the preferred PK/PD target and is associated with decreased risk of nephrotoxicity compared to traditional trough targets.
--- NOTE | 2022-06-25 15:46 | Hospitalist Progress Note ---
Date of Service June 25, 2022 Assessment & Plan (1) Acute alteration in mental status: Plan: Acute metabolic encephalopathy -Presented with increased somnolence, lethargy, worsening tremors and hallucinations. He was discharged from the hospital 9 days prior after lengthy hospitalization for COVID-19 and hypoxic respiratory failure. -Also presented with hematuria and Witt catheter was exchanged in ER, urinalysis with contamination and not likely UTI -Viral respiratory bio fire panel negative, no renal failure or dehydration -With evidence of sinusitis on CT -No leukocytosis, Pro-Lj is normal, afebrile, ammonia is normal, and he is not hypercarbic on his VBG -Now with Staph bacteremia, likely from recent midline placed -Was started on Unasyn for sinusitis and vancomycin added for bacteremia-patient now significantly improved mentation suggesting infection was because of his encephalopathy Reduced dose of trazodone and discontinue home cyclobenzaprine for potential sedation/polypharmacy. Could consider reduction in dose of pregabalin but not needed at this point (2) Bacteremia: Plan: 2/4 bottles (1 set) of blood cultures positive for Staphylococcus epidermidis- statistically would be contaminant but given midline recently and encephalopathy, likely true infection Appreciate ID consult Does have hardware in his lower back but no pain or signs of infection there Repeat blood cultures 06/23 remain NGTD Continue vancomycin x 7 days after last neg BCxs-last day of tx will be 06/30/22 Midline removed 06/23 (3) Sinusitis: Plan: Seen on CT head on admission With recent COVID-19, could have secondary bacterial infection Started on Unasyn and then converted to po Augmentin to finish out 10 day course-last day of tx will be 07/01/22 (4) Anemia: Plan: Chronic Anemia, hemoglobin stable at his baseline 7.4, macrocytic Most likely secondary to hydroxyurea effect, but also with Fe-deficiency--> transferrin sat 17% Folate deficient borderline at 5.8--> started folic acid 1mg po daily -continue to hold hydroxyurea that is presumably being used for essential thrombocytosis? Follow CBC Follows with hematology as an outpatient -give 3 doses of IV Venofer here (ok despite the fact that he is bacteremic as per my d/w ID)-last dose will be on 06/26 (5) HTN (hypertension): Plan: Blood pressures are controlled Continue Lasix 20 mg daily, lisinopril 5 mg daily, metoprolol tartrate 12.5 Mg p.o. twice daily (6) VIK on CPAP: Plan: - CPAP qhs - VBG without significant hypercapnia on admit (7) Paroxysmal atrial fibrillation: Plan: Sinus rhythm on admission and regular on exam Continue Eliquis, metoprolol Not on telemetry monitoring (8) PTSD (post-traumatic stress disorder): Plan: No acute issues Continue prazosin, sertraline, trazodone reduced dose, buspirone, and bupropion (9) Lewy body dementia: Plan: Appreciate neurology consultation Reduced dose of carbidopa/levodopa to 1 tablet p.o. 3 times daily from 5 tablets to improve agitation hallucinations-doing well on this dose Continue memantine (10) BPH (benign prostatic hyperplasia): Plan: - With urinary retention requiring Witt catheter placement - UA contaminated appearing, UC negative -Trial of void in the future-around 06/30 (1 week s/p Witt placement) -Continue finasteride, prazosin (11) History of back surgery: Plan: With hardware in place (12) Vitamin D deficiency: Plan: Severely low level less than 7 on 06/05/2022 Continue replacement once weekly Plan DVT prophylaxis apixaban Disposition-continued stay on medical/surgical unit. PT/OT consults placed. Patient's requesting patient go to the [facility] for long-term placement upon discharge. Appreciate case management arrangements Plan to transfer to [facility] to finish out IV abx prior to going to pharmacy [facility] care at [place]--> they cannot accept till at least Monday Discussed care with on the phone on 06/23 and again on 06/25 Admission and Anticipated Discharge Date Admission Date: June 24, 2022 Subjective Pt feels well, no complaints. TOlerated IV iron well yesterday. Moving bowels, eating. Physical Exam Constitutional: WD/WN, vitals as above Neck: trachea midline, no thyromegaly Respiratory: normal respiratory effort, lungs clear to auscultation Cardiovascular: RRR, no murmur, no edema Chest (Breasts): Chest: normal inspection of chest Gastrointestinal (Abdomen): normal bowel sounds, soft, nontender, no hepatosplenomegaly Musculoskeletal: Extremities: + extremities abnormal to inspection (Bilateral BKAs) Skin: no rashes, warm and dry Neurologic: moves all extremities and awake; no focal motor deficits Psychiatric: Orientation: alert, oriented to person, oriented to place and cooperative Genitourinary: no penis abnormality (Witt catheter in place, no hematuria) Results & Data Results & Data Vital Signs (Past 12 Hours) Vital Signs Temp Pulse Resp BP Pulse Ox O2 Del Method O2 Flow Rate 06/25/22 14:51 36.5 C 60 16 101/62 94 Room Air 06/25/22 08:15 Nasal Cannula 2 06/25/22 07:23 36.5 C 69 18 120/70 95 Nasal Cannula 2 Laboratory Results CBC, BMP reviewed BCxs repeat NGTD BCxs from admission 03/31 with Coag neg Staph, not lugdenensis PG Care Time/CCT Total # of Minutes Spent Total Time Spent with Patient: Total time spent is greater than 50% in coordination of care (as documented) at patient's floor/unit and/or counseling patient: Coding Level of Care Code 23426 SUB INP/OBS CARE MIN Diagnoses Acute alteration in mental status R41.82 Bacteremia R78.81 Sinusitis J01.90 Chronicity: acute Recurrence: non-recurrent Sinusitis location: unspecified location Anemia D64.9 HTN (hypertension) I10 Hypertension type: essential hypertension VIK on CPAP G47.33; Z99.89 Paroxysmal atrial fibrillation I48.0 PTSD (post-traumatic stress disorder) F43.10 Lewy body dementia G31.83; F02.80 BPH (benign prostatic hyperplasia) N40.0 History of back surgery Z98.890 Vitamin D deficiency E55.9 (3) Sinusitis Chronicity: acute Recurrence: non-recurrent Sinusitis location: unspecified location Qualified Code(s): J01.90 - Acute sinusitis, unspecified (5) HTN (hypertension) Hypertension type: essential hypertension Qualified Code(s): I10 - Essential (primary) hypertension
[2022-06-25] MEDS ORDERED: IRON SUCROSE 300 MG in SODIUM CHLORIDE 0.9% 250 ML IV ONE (16:00)
[2022-06-25] MEDS: PRAZOSIN HCL 1 MG CAP PO SCH (21:33)
[2022-06-25] MEDS: traZODone HCL 50 MG TAB PO SCH (21:34)
[2022-06-26] MEDS: VANCOMYCIN HCL 1,000 MG in SODIUM CHLORIDE 0.9% 250 ML IV SCH ×2 (06:21→17:23)
[2022-06-26 07:21] LABS: Basophils # (auto) 0.01 K/uL (0-0.2); Basophils % (auto) 0.3 %; Eosinophils # (auto) 0.05 K/uL (0-0.50); Eosinophils % (auto) 1.6 %; Hematocrit (blood only) 25.8 % (42.0-52.0); Hemoglobin 7.8 g/dl (14.0-18.0); Immature Granulocytes # (auto) 0.04 K/uL (0.01-0.20); Immature Granulocytes % (auto) 1.3 %; Lymphocytes # (auto) 0.56 K/uL (1.2-3.4); Lymphocytes % (auto) 18.4 %; Mean Corpuscular Hemoglobin 29.3 pg (25.0-34.0); Mean Corpuscular Hgb Conc 30.2 g/dL (32.0-36.0); Mean Platelet Volume 10.5 fL (9.4-12.4); Monocytes # (auto) 0.19 K/uL (0.11-0.59); Monocytes % (auto) 6.3 %; Neutrophils # (auto) 2.19 K/uL (1.40-6.50); Neutrophils % (auto) 72.1 %; Platelet Count 283 K/uL (130-400); RDW Coefficient of Variation 16.7 % (11.5-14.5); RDW Standard Deviation 58.4 fL (36.4-46.3); Red Blood Count 2.66 M/uL (4.70-6.10); White Blood Count 3.04 K/ul (4.8-10.8)
[2022-06-26 07:39] LABS: BUN Creatinine Ratio 11.3 (10-20); Calcium 8.1 mg/dl (8.6-10.3); Creatinine Clr Calc Pharmacy 80.2 ml/min; Est GFR (African American) 101.3 ml/min; Est GFR (Non-African American) 87.4 ml/min; Potassium 3.5 mmol/L (3.5-5.1)
[2022-06-26 08:10] LABS: RBC Morphology Unremarkable
[2022-06-26] MEDS: AMOXICILLIN/CLAVULANATE 875 MG TAB PO SCH ×2 (08:24→17:22)
[2022-06-26] MEDS: PANTOprazole 40 MG TAB PO SCH ×2 (08:25→20:14)
[2022-06-26] MEDS: ATORVASTATIN 10 MG TAB PO SCH (08:26)
[2022-06-26] MEDS: APIXABAN 5 MG TABLET PO SCH ×2 (08:26→20:12)
[2022-06-26] MEDS: CARBIDOPA/LEVODOPA 25/100MG TAB PO SCH ×3 (08:26→20:13)
[2022-06-26] MEDS: SERTRALINE HCL 100 MG TABLET PO SCH ×2 (08:27→20:15)
[2022-06-26] MEDS: METOPROLOL TARTRATE 25 MG TAB PO SCH ×2 (08:28→20:13)
[2022-06-26] MEDS: FUROSEMIDE 20 MG TAB PO SCH (08:29)
[2022-06-26] MEDS: busPIRone 7.5 MG TAB PO SCH ×3 (08:29→20:12)
[2022-06-26] MEDS: FINASTERIDE 5 MG TAB PO SCH (08:30)
[2022-06-26] MEDS: buPROPion XL 300 MG TABCR PO SCH (08:30)
[2022-06-26] MEDS: MEMANTINE HCL 5 MG TAB PO SCH (08:31)
[2022-06-26] MEDS: lisinopril 5 MG TAB PO SCH (08:31)
[2022-06-26] MEDS: MONTELUKAST SODIUM 10 MG TABLET PO SCH (08:32)
[2022-06-26] MEDS: FOLIC ACID 1 MG TAB PO SCH (08:33)
[2022-06-26] MEDS: PREGABALIN 150 MG CAP PO SCH ×2 (08:35→20:15)
--- NOTE | 2022-06-26 12:13 | Hospitalist Progress Note ---
Date of Service June 26, 2022 Assessment & Plan (1) Acute alteration in mental status: Plan: Acute metabolic encephalopathy -Presented with increased somnolence, lethargy, worsening tremors and hallucinations. He was discharged from the hospital 9 days prior after lengthy hospitalization for COVID-19 and hypoxic respiratory failure. -Also presented with hematuria and Witt catheter was exchanged in ER, urinalysis with contamination and not likely UTI. [facility] -Viral respiratory bio fire panel negative, no renal failure or dehydration -With evidence of sinusitis on CT -No leukocytosis, Pro-Jl is normal, afebrile, ammonia is normal, and he is not hypercarbic on his VBG -Now with Staph bacteremia, likely from recent midline placed at [facility] -Was started on Unasyn for sinusitis and vancomycin added for bacteremia-patient now significantly improved mentation suggesting infection was because of his encephalopathy Reduced dose of trazodone and discontinue home cyclobenzaprine for potential sedation/polypharmacy. Could consider reduction in dose of pregabalin but not needed at this point (2) Bacteremia: Plan: 2/4 bottles (1 set) of blood cultures positive for Staphylococcus epidermidis- statistically would be contaminant but given midline recently and encephalopathy, likely true infection Appreciate ID consult Does have hardware in his lower back but no pain or signs of infection there Repeat blood cultures 06/23 remain NGTD Continue vancomycin x 7 days after last neg BCxs-last day of tx will be 06/30/22 Midline removed 06/23 (3) Sinusitis: Plan: Seen on CT head on admission With recent COVID-19, could have secondary bacterial infection Started on Unasyn and then converted to po Augmentin to finish out 10 day course-last day of tx will be 07/01/22 (4) Anemia: Plan: Chronic Anemia, hemoglobin stable at his baseline 7.8, macrocytic [facility] Most likely secondary to hydroxyurea effect, but also with Fe-deficiency--> tr ansferrin sat 17% Folate deficient borderline at 5.8--> started folic acid 1mg po daily -continue to hold hydroxyurea until outpt f/u with Heme and once anemia improves; would restart if platelets go > 500 -Follow CBC -give 3 doses of IV Venofer here (ok despite the fact that he is bacteremic as per my d/w ID)-last dose will be on 06/26 (5) HTN (hypertension): Plan: Blood pressures are controlled Continue Lasix 20 mg daily, lisinopril 5 mg daily, metoprolol tartrate 12.5 Mg p.o. twice daily (6) VIK on CPAP: Plan: - CPAP qhs - VBG without significant hypercapnia on admit (7) Paroxysmal atrial fibrillation: Plan: Sinus rhythm on admission and regular on exam Continue Eliquis, metoprolol Not on telemetry monitoring (8) PTSD (post-traumatic stress disorder): Plan: No acute issues Continue prazosin, sertraline, trazodone reduced dose, buspirone, and bupropion (9) Lewy body dementia: Plan: Appreciate neurology consultation Reduced dose of carbidopa/levodopa to 1 tablet p.o. 3 times daily from 5 tablets to improve agitation hallucinations-doing well on this dose and not having hallucinations here Continue memantine (10) BPH (benign prostatic hyperplasia): Plan: - With urinary retention requiring Witt catheter placement at [facility] prior to admission - UA contaminated appearing, UC negative -Trial of void in the future-around 06/30 (1 week s/p Witt placement) at rehab -Continue finasteride, prazosin (11) History of back surgery: Plan: With hardware in place (12) Vitamin D deficiency: Plan: Severely low level less than 7 on 06/05/2022 Continue replacement once weekly Plan DVT prophylaxis apixaban Disposition-continued stay on medical/surgical unit. PT/OT consults placed. Patient's requesting patient go to the [place] home for long-term placement upon discharge. Appreciate case management arrangements Plan to transfer to [facility] to finish out IV abx prior to going to detention care at [place]--> they cannot accept till at least Monday Discussed care with on the phone on 06/23 and again on 06/25 Admission and Anticipated Discharge Date Admission Date: June 24, 2022 Subjective No complaints. I woke him from sleep this AM and he was a little confused about the day of the week. Physical Exam Constitutional: WD/WN, vitals as above Neck: trachea midline, no thyromegaly Respiratory: normal respiratory effort, lungs clear to auscultation Cardiovascular: RRR, no murmur, no edema Chest (Breasts): Chest: normal inspection of chest Gastrointestinal (Abdomen): normal bowel sounds, soft, nontender, no hepatosplenomegaly Musculoskeletal: Extremities: + extremities abnormal to inspection (Bilateral BKAs) Skin: no rashes, warm and dry Neurologic: moves all extremities and awake; no focal motor deficits Psychiatric: Orientation: alert, oriented to person, oriented to place and cooperative Genitourinary: no penis abnormality (Witt catheter in place, no hematuria) Results & Data Results & Data Vital Signs (Past 12 Hours) Vital Signs Temp Pulse Resp BP Pulse Ox O2 Del Method O2 Flow Rate 06/26/22 08:15 Nasal Cannula 2 06/26/22 07:33 36.5 C 69 16 125/69 96 Nasal Cannula 1 Laboratory Results CBC, BMP reviewed BCxs 06/23 remain NGTD PG Care Time/CCT Total # of Minutes Spent Total Time Spent with Patient: Total time spent is greater than 50% in coordination of care (as documented) at patient's floor/unit and/or counseling patient: Coding Level of Care Code 66286 SUB INP/OBS CARE 2/35MIN Diagnoses Acute alteration in mental status R41.82 Bacteremia R78.81 Sinusitis J01.90 Chronicity: acute Recurrence: non-recurrent Sinusitis location: unspecified location Anemia D64.9 HTN (hypertension) I10 Hypertension type: essential hypertension VIK on CPAP G47.33; Z99.89 Paroxysmal atrial fibrillation I48.0 PTSD (post-traumatic stress disorder) F43.10 Lewy body dementia G31.83; F02.80 BPH (benign prostatic hyperplasia) N40.0 History of back surgery Z98.890 Vitamin D deficiency E55.9 (3) Sinusitis Chronicity: acute Recurrence: non-recurrent Sinusitis location: unspecified location Qualified Code(s): J01.90 - Acute sinusitis, unspecified (5) HTN (hypertension) Hypertension type: essential hypertension Qualified Code(s): I10 - Essential (primary) hypertension
[2022-06-26] MEDS ORDERED: IRON SUCROSE 300 MG in SODIUM CHLORIDE 0.9% 250 ML IV ONE (16:00)
[2022-06-26] MEDS: PRAZOSIN HCL 1 MG CAP PO SCH (20:14)
[2022-06-26] MEDS: traZODone HCL 50 MG TAB PO SCH (20:16)
[2022-06-27] MEDS ORDERED: VANCOMYCIN LEVEL ONE (05:30)
[2022-06-27 05:57] LABS: Eosinophils # (auto) 0.06 K/uL (0-0.50); Eosinophils % (auto) 1.9 %; Hematocrit (blood only) 27.3 % (42.0-52.0); Hemoglobin 8.3 g/dl (14.0-18.0); Immature Granulocytes # (auto) 0.05 K/uL (0.01-0.20); Immature Granulocytes % (auto) 1.6 %; Lymphocytes # (auto) 0.64 K/uL (1.2-3.4); Lymphocytes % (auto) 20.5 %; Mean Corpuscular Hemoglobin 29.4 pg (25.0-34.0); Mean Corpuscular Hgb Conc 30.4 g/dL (32.0-36.0); Mean Corpuscular Volume 96.8 fL (80.0-100.0); Mean Platelet Volume 10.4 fL (9.4-12.4); Monocytes # (auto) 0.19 K/uL (0.11-0.59); Monocytes % (auto) 6.1 %; Neutrophils # (auto) 2.18 K/uL (1.40-6.50); Neutrophils % (auto) 69.9 %; Platelet Count 321 K/uL (130-400); RDW Coefficient of Variation 16.6 % (11.5-14.5); RDW Standard Deviation 57.4 fL (36.4-46.3); Red Blood Count 2.82 M/uL (4.70-6.10); White Blood Count 3.12 K/ul (4.8-10.8)
[2022-06-27 06:08] LABS: BUN Creatinine Ratio 9.9 (10-20); Calcium 8.3 mg/dl (8.6-10.3); Creatinine Clr Calc Pharmacy 79.2 ml/min; Est GFR (African American) 100.8 ml/min; Est GFR (Non-African American) 86.9 ml/min; Potassium 3.5 mmol/L (3.5-5.1)
[2022-06-27] MEDS: AMOXICILLIN/CLAVULANATE 875 MG TAB PO SCH ×2 (09:39→18:40)
[2022-06-27] MEDS: ATORVASTATIN 10 MG TAB PO SCH (09:50)
[2022-06-27] MEDS: APIXABAN 5 MG TABLET PO SCH ×2 (09:50→20:26)
[2022-06-27] MEDS: buPROPion XL 300 MG TABCR PO SCH (09:51)
[2022-06-27] MEDS: busPIRone 7.5 MG TAB PO SCH ×3 (09:51→20:26)
[2022-06-27] MEDS: CARBIDOPA/LEVODOPA 25/100MG TAB PO SCH ×3 (09:52→20:26)
[2022-06-27] MEDS: FINASTERIDE 5 MG TAB PO SCH (09:52)
[2022-06-27] MEDS: FOLIC ACID 1 MG TAB PO SCH (09:53)
[2022-06-27] MEDS: lisinopril 5 MG TAB PO SCH (09:54)
[2022-06-27] MEDS: FUROSEMIDE 20 MG TAB PO SCH (09:54)
[2022-06-27] MEDS: MEMANTINE HCL 5 MG TAB PO SCH (09:55)
[2022-06-27] MEDS: METOPROLOL TARTRATE 25 MG TAB PO SCH ×2 (09:56→20:26)
[2022-06-27] MEDS: MONTELUKAST SODIUM 10 MG TABLET PO SCH (09:59)
[2022-06-27] MEDS: SERTRALINE HCL 100 MG TABLET PO SCH ×2 (10:00→20:29)
[2022-06-27] MEDS: PANTOprazole 40 MG TAB PO SCH ×2 (10:00→20:28)
[2022-06-27] MEDS: PREGABALIN 150 MG CAP PO SCH ×2 (10:08→20:29)
[2022-06-27] MEDS: VANCOMYCIN HCL 1,000 MG in SODIUM CHLORIDE 0.9% 250 ML IV SCH ×2 (10:28→18:42)
--- NOTE | 2022-06-27 10:45 | Pharmacy Report ---
Pharmacy PK ABX Note - Date of Service June 27, 2022 - Assessment and Plan Assessment * 77 year old M receiving Augmentin and vancomycin for treatment of sinusitis and possible bacteremia. * Pertinent microbiologic data includes: * 1 of 2 blood cultures from 06/22 growing coag negative staph. PCR report indicates Staph epidermidis with oxacillin resistance. * Repeat blood cultures from 06/23 - no growth to date. * Provider note 06/24 - Staph epidermidis in 1 of 2 blood cultures is usually a contaminant, but given recent midline insertion and improvement in encephalopathy on antibiotics, continue above for now. ID consult: "If repeat blood cultures remain negative, anticipate being able to treat the Staph epi bacteremia for a 5-7 day course from 06/23 (or first date of cleared blood cultures and when midline was removed). Can treat with vancomycin (goal trough 15-20), or for ease of dosing, can transition to daptomycin 400 mg IV daily (per discussion with ID pharmacist, dosing 6 mg/kg based on weight of 67 kg). Ordered a baseline CK for 06/25 AM in case he is going on dapto." * Renal function continues to gradually improve, now close to baseline. Plan Vancomycin * Goal AUC 400-600 mg/L.hr * Random level of 16.6 mcg/mL today associated with a therapeutic AUC of 470 mg/L.hr * Continue vancomycin 1000 mg IV every 12 hours * No repeat level will be ordered at this time. Reasonable to check another level if renal fxn changes over the next 48 hours. Pharmacy will continue to follow and will adjust dose/frequency as necessary. Thank you. Pharmacy has transitioned to AUC monitoring for vancomycin. AUC/DALLIN is the preferred PK/PD target and is associated with decreased risk of nephrotoxicity compared to traditional trough targets.
--- NOTE | 2022-06-27 16:42 | Hospitalist Progress Note ---
Date of Service June 27, 2022 Assessment & Plan (1) Acute alteration in mental status: Plan: Acute metabolic encephalopathy POA. Now resolved. No UTI. Viral respiratory bio fire panel negative. Evidence of sinusitis on CT. Now with Staph bacteremia, likely from recent midline placed at [facility]. Was started on Unasyn for sinusitis and vancomycin added for bacteremia. Encephalopathy now resolved. (2) Bacteremia: Plan: 2/ bottles (1 set) of blood cultures positive for Staphylococcus epidermidis-st atistically would be contaminant but given [facility] on June 20 and encephalopathy, likely true infection Appreciate ID consult. Currently on intravenous vancomycin through June 30. Repeat blood cultures 06/23 remain NGTD. Midline removed 06/23 (3) Sinusitis: Plan: Seen on CT head on admission. Treated with Unasyn on admission and now on oral Augmentin therapy. (4) Anemia: Plan: Chronic. 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 Fe-deficiency probably contributing to thrombocytosis. Folate deficient borderline at 5.8--> started folic acid 1mg po daily. Hydroxyurea currently on hold until outpt f/u with Heme. Received intravenous Venofer. Serial labs (5) HTN (hypertension): Plan: Well-controlled. Continue Lasix, lisinopril, metoprolol (6) VIK on CPAP: Plan: CPAP qhs. VBG without significant hypercapnia on admit (7) Paroxysmal atrial fibrillation: Plan: Sinus rhythm on admission. Continue Eliquis, metoprolol (8) PTSD (post-traumatic stress disorder): Plan: Supportive care. Continue prazosin, sertraline, trazodone, buspirone, and bupropion (9) Lewy body dementia: Plan: Appreciate neurology consultation. Reduced dose of carbidopa/levodopa to 1 tablet p.o. 3 times daily from 5 tablets to improve agitation and aguilera ucinations. Continue memantine (10) BPH (benign prostatic hyperplasia): Plan: With urinary retention requiring Witt catheter placement at [facility] prior to admission. UC negative. Trial of void in the future. Continue finasteride, prazosin (11) History of back surgery: Plan: With hardware in place. No current evidence of infection (12) Vitamin D deficiency: Plan: Severely low level, less than 7 on 06/05/2022. Continue replacement once weekly Plan DVT prophylaxis - apixaban Disposition- Patient's requesting patient go to the [facility] to finish his IV antibiotic therapy then to the [place] [facility] for long-term placement. A ppreciate case management efforts. Plan to transfer to [facility] if bed [facility] available to finish out IV abx prior to going to [facility] [place] Admission and Anticipated Discharge Date Admission Date: June 24, 2022 Subjective Alert and oriented. No acute distress. Awaiting transfer to [facility]. Otherwise, he will remain here in complete intravenous vancomycin therapy through June 30. Oral iron replacement ordered. Review of Systems Review of Systems: Constitutional-no fever or chills ENT-no blurred vision, no double vision, no epistaxis, no sore throat Respiratory-no cough, no wheezing, no shortness of breath Cardiac-no palpitations, no chest pain, no syncope GI-no nausea, vomiting, diarrhea, melena, hematochezia -no urinary retention, no urinary incontinence, no dysuria, no hematuria Musculoskeletal-no joint pain, no muscle tenderness. Bilateral BKA status Skin-no bruising, no rashes, no pruritus Neuro-no isolated weakness, no paresthesia, no weakness Psych-no depression, no anxiety Physical Exam Physical Exam: General-alert and oriented x3, no fevers, no chills HEENT-head atraumatic and normocephalic, pupils equal and reactive to light, extraocular muscles intact Neck-no lymphadenopathy or thyromegaly, trachea midline Chest-clear to auscultation percussion. No rales wheezing or rhonchi Cardiac-regular rate and rhythm, normal S1 and S2, no murmurs Abdomen-normal bowel sounds, nontender, no hepatosplenomegaly Extremities-bilateral BKA status Neuro-cranial nerves II through XII intact, motor and sensory function within normal limits, strength symmetrical , no focal deficits Psych-normal affect, normal mood Results & Data Results & Data Vital Signs (Past 12 Hours) Vital Signs Temp Pulse Resp BP Pulse Ox O2 Del Method 06/27/22 15:40 36.5 C 66 20 128/73 95 Room Air 06/27/22 07:53 36.8 C 71 18 135/83 92 Room Air Laboratory Results 06/27/22 05:33 06/27/22 05:33 PG Care Time/CCT Total # of Minutes Spent Total Time Spent with Patient: Total time spent is greater than 50% in coordination of care (as documented) at patient's floor/unit and/or counseling patient: Coding Level of Care Code 85014 SUB INP/OBS CARE 3/50MIN Diagnoses Acute alteration in mental status R41.82 Bacteremia R78.81 Sinusitis J01.90 Chronicity: acute Recurrence: non-recurrent Sinusitis location: unspecified location Anemia D64.9 HTN (hypertension) I10 Hypertension type: essential hypertension VIK on CPAP G47.33; Z99.89 Paroxysmal atrial fibrillation I48.0 PTSD (post-traumatic stress disorder) F43.10 Lewy body dementia G31.83; F02.80 BPH (benign prostatic hyperplasia) N40.0 History of back surgery Z98.890 Vitamin D deficiency E55.9 (3) Sinusitis Chronicity: acute Recurrence: non-recurrent Sinusitis location: unspecified location Qualified Code(s): J01.90 - Acute sinusitis, unspecified (5) HTN (hypertension) Hypertension type: essential hypertension Qualified Code(s): I10 - Essential (primary) hypertension
[2022-06-27] MEDS: FERROUS SULFATE 325 MG TAB PO SCH (18:40)
[2022-06-27] MEDS: PRAZOSIN HCL 1 MG CAP PO SCH (20:28)
[2022-06-27] MEDS: traZODone HCL 50 MG TAB PO SCH (20:29)
[2022-06-28] MEDS: VANCOMYCIN HCL 1,000 MG in SODIUM CHLORIDE 0.9% 250 ML IV SCH ×2 (05:18→17:18)
[2022-06-28] MEDS: CARBIDOPA/LEVODOPA 25/100MG TAB PO SCH ×3 (08:35→21:34)
[2022-06-28] MEDS: FINASTERIDE 5 MG TAB PO SCH (08:35)
[2022-06-28] MEDS: AMOXICILLIN/CLAVULANATE 875 MG TAB PO SCH ×2 (08:35→17:21)
[2022-06-28] MEDS: SERTRALINE HCL 100 MG TABLET PO SCH ×2 (08:35→21:36)
[2022-06-28] MEDS: APIXABAN 5 MG TABLET PO SCH ×2 (08:35→21:33)
[2022-06-28] MEDS: PANTOprazole 40 MG TAB PO SCH ×2 (08:35→21:39)
[2022-06-28] MEDS: buPROPion XL 300 MG TABCR PO SCH (08:35)
[2022-06-28] MEDS: busPIRone 7.5 MG TAB PO SCH ×3 (08:35→21:37)
[2022-06-28] MEDS: FERROUS SULFATE 325 MG TAB PO SCH ×2 (08:35→17:21)
[2022-06-28] MEDS: MEMANTINE HCL 5 MG TAB PO SCH (08:36)
[2022-06-28] MEDS: FUROSEMIDE 20 MG TAB PO SCH (08:36)
[2022-06-28] MEDS: lisinopril 5 MG TAB PO SCH (08:36)
[2022-06-28] MEDS: FOLIC ACID 1 MG TAB PO SCH (08:36)
[2022-06-28] MEDS: MONTELUKAST SODIUM 10 MG TABLET PO SCH (08:37)
[2022-06-28] MEDS: METOPROLOL TARTRATE 25 MG TAB PO SCH ×2 (08:37→21:35)
[2022-06-28] MEDS: ATORVASTATIN 10 MG TAB PO SCH (08:37)
[2022-06-28] MEDS: PREGABALIN 150 MG CAP PO SCH ×2 (08:43→21:40)
--- NOTE | 2022-06-28 17:04 | Hospitalist Progress Note ---
Date of Service June 28, 2022 Assessment & Plan (1) Acute alteration in mental status: Plan: Acute metabolic encephalopathy POA. Now resolved. No UTI. Viral respiratory bio fire panel negative. Evidence of sinusitis on CT. Now with Staph bacteremia, likely from recent midline placed at [place]. Was started on Unasyn and now Augmentin for sinusitis and IV vancomycin added for bacteremia. Encephalopathy now resolved. (2) Bacteremia: Plan: 2/ bottles (1 set) of blood cultures positive for Staphylococcus epidermidis- statistically would be contaminant but given midline recently placed at [facility] on June 20 and encephalopathy, likely true infection Appreciate ID consult. Currently on intravenous vancomycin through June 30. Repeat blood cultures 06/23 remain NGTD. Midline removed 06/23 (3) Sinusitis: Plan: Seen on CT head on admission. Treated with Unasyn on admission and now on oral Augmentin therapy. (4) Anemia: Plan: Chronic. 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 Fe-deficiency probably contributing to thrombocytosis. Folate deficient borderline at 5.8--> started folic acid 1mg po daily. Hydroxyurea currently on hold until outpt f/u with Heme. Received intravenous Venofer. Serial labs (5) HTN (hypertension): Plan: Well-controlled. Continue Lasix, lisinopril, metoprolol (6) VIK on CPAP: Plan: CPAP qhs. VBG without significant hypercapnia on admit (7) Paroxysmal atrial fibrillation: Plan: Sinus rhythm on admission. Continue Eliquis, metoprolol (8) PTSD (post-traumatic stress disorder): Plan: Supportive care. Continue prazosin, sertraline, trazodone, buspirone, and bupropion (9) Lewy body dementia: Plan: Appreciate neurology consultation. Reduced dose of carbidopa/levodopa to 1 tablet p.o. 3 times daily from 5 tablets to improve agitation and hallucinations. Continue memantine (10) BPH (benign prostatic hyperplasia): Plan: With urinary retention requiring Witt catheter placement at [facility] prior to admission. UC negative. Trial of void in the future. Continue finasteride, prazosin (11) History of back surgery: Plan: With hardware in place. No current evidence of infection (12) Vitamin D deficiency: Plan: Severely low level, less than 7 on 06/05/2022. Continue replacement once weekly Plan DVT prophylaxis - apixaban Disposition- the patient will no longer be going to the [facility]. He will complete his IV antibiotic therapy here and probably be discharged to a local SNF facility. Appreciate case management efforts. Admission and Anticipated Discharge Date Admission Date: June 24, 2022 Subjective Alert and oriented. is at the bedside. He will no longer be going to the [facility]. He will complete his intravenous vancomycin therapy here through June 30. Witt catheter will be removed. OT and PT assessments requested. Review of Systems Review of Systems: Constitutional-no fever or chills ENT-no blurred vision, no double vision, no epistaxis, no sore throat Respiratory-no cough, no wheezing, no shortness of breath Cardiac-no palpitations, no chest pain, no syncope GI-no nausea, vomiting, diarrhea, melena, hematochezia -no urinary retention, no urinary incontinence, no dysuria, no hematuria Musculoskeletal-no joint pain, no muscle tenderness. Bilateral BKA status Skin-no bruising, no rashes, no pruritus Neuro-no isolated weakness, no paresthesia, no weakness Psych-no depression, no anxiety Physical Exam Physical Exam: General-alert and oriented x3, no fevers, no chills HEENT-head atraumatic and normocephalic, pupils equal and reactive to light, extraocular muscles intact Neck-no lymphadenopathy or thyromegaly, trachea midline Chest-clear to auscultation percussion. No rales wheezing or rhonchi Cardiac-regular rate and rhythm, normal S1 and S2, no murmurs Abdomen-normal bowel sounds, nontender, no hepatosplenomegaly Extremities-bilateral BKA status Neuro-cranial nerves II through XII intact, motor and sensory function within normal limits, strength symmetrical , no focal deficits Psych-normal affect, normal mood Results & Data Results & Data Vital Signs (Past 12 Hours) Vital Signs Temp Pulse Resp BP Pulse Ox O2 Del Method 06/28/22 15:23 36.5 C 71 18 117/73 96 Room Air 06/28/22 08:30 36.3 C L 59 L 18 154/78 H 93 Room Air Laboratory Results 06/27/22 05:33 06/27/22 05:33 PG Care Time/CCT Total # of Minutes Spent Total Time Spent with Patient: Total time spent is greater than 50% in coordination of care (as documented) at patient's floor/unit and/or counseling patient: Coding Level of Care Code 38107 SUB INP/OBS CARE 3/50MIN Diagnoses Acute alteration in mental status R41.82 Bacteremia R78.81 Sinusitis J01.90 Chronicity: acute Recurrence: non-recurrent Sinusitis location: unspecified location Anemia D64.9 HTN (hypertension) I10 Hypertension type: essential hypertension VIK on CPAP G47.33; Z99.89 Paroxysmal atrial fibrillation I48.0 PTSD (post-traumatic stress disorder) F43.10 Lewy body dementia G31.83; F02.80 BPH (benign prostatic hyperplasia) N40.0 History of back surgery Z98.890 Vitamin D deficiency E55.9 (3) Sinusitis Chronicity: acute Recurrence: non-recurrent Sinusitis location: unspecified location Qualified Code(s): J01.90 - Acute sinusitis, unspecified (5) HTN (hypertension) Hypertension type: essential hypertension Qualified Code(s): I10 - Essential (primary) hypertension
[2022-06-28] MEDS: PRAZOSIN HCL 1 MG CAP PO SCH (21:35)
[2022-06-28] MEDS: traZODone HCL 50 MG TAB PO SCH (21:38)
[2022-06-29] MEDS: VANCOMYCIN HCL 1,000 MG in SODIUM CHLORIDE 0.9% 250 ML IV SCH ×2 (04:09→15:04)
[2022-06-29 06:42] LABS: Basophils # (auto) 0.01 K/uL (0-0.2); Basophils % (auto) 0.3 %; Eosinophils # (auto) 0.06 K/uL (0-0.50); Eosinophils % (auto) 1.8 %; Hematocrit (blood only) 27.3 % (42.0-52.0); Hemoglobin 8.2 g/dl (14.0-18.0); Immature Granulocytes # (auto) 0.16 K/uL (0.01-0.20); Immature Granulocytes % (auto) 4.8 %; Lymphocytes # (auto) 0.75 K/uL (1.2-3.4); Lymphocytes % (auto) 22.3 %; Mean Corpuscular Hemoglobin 29.4 pg (25.0-34.0); Mean Corpuscular Volume 97.8 fL (80.0-100.0); Mean Platelet Volume 10.2 fL (9.4-12.4); Monocytes # (auto) 0.25 K/uL (0.11-0.59); Monocytes % (auto) 7.4 %; Neutrophils # (auto) 2.13 K/uL (1.40-6.50); Neutrophils % (auto) 63.4 %; Platelet Count 360 K/uL (130-400); RDW Coefficient of Variation 17.1 % (11.5-14.5); RDW Standard Deviation 61.6 fL (36.4-46.3); Red Blood Count 2.79 M/uL (4.70-6.10); White Blood Count 3.36 K/ul (4.8-10.8)
[2022-06-29 06:58] LABS: BUN Creatinine Ratio 11.4 (10-20); Calcium 7.9 mg/dl (8.6-10.3); Creatinine Clr Calc Pharmacy 81.3 ml/min; Est GFR (African American) 101.8 ml/min; Est GFR (Non-African American) 87.8 ml/min; Potassium 3.5 mmol/L (3.5-5.1)
[2022-06-29] MEDS: ATORVASTATIN 10 MG TAB PO SCH (08:39)
[2022-06-29] MEDS: PANTOprazole 40 MG TAB PO SCH ×2 (08:40→20:13)
[2022-06-29] MEDS: MONTELUKAST SODIUM 10 MG TABLET PO SCH (08:40)
[2022-06-29] MEDS: FINASTERIDE 5 MG TAB PO SCH (08:40)
[2022-06-29] MEDS: buPROPion XL 300 MG TABCR PO SCH (08:40)
[2022-06-29] MEDS: FOLIC ACID 1 MG TAB PO SCH (08:40)
[2022-06-29] MEDS: MEMANTINE HCL 5 MG TAB PO SCH (08:40)
[2022-06-29] MEDS: FUROSEMIDE 20 MG TAB PO SCH (08:40)
[2022-06-29] MEDS: lisinopril 5 MG TAB PO SCH (08:40)
[2022-06-29] MEDS: busPIRone 7.5 MG TAB PO SCH ×3 (08:41→20:13)
[2022-06-29] MEDS: CARBIDOPA/LEVODOPA 25/100MG TAB PO SCH ×3 (08:41→20:13)
[2022-06-29] MEDS: SERTRALINE HCL 100 MG TABLET PO SCH ×2 (08:41→20:13)
[2022-06-29] MEDS: METOPROLOL TARTRATE 25 MG TAB PO SCH ×2 (08:41→20:13)
[2022-06-29] MEDS: FERROUS SULFATE 325 MG TAB PO SCH ×2 (08:42→16:38)
[2022-06-29] MEDS: AMOXICILLIN/CLAVULANATE 875 MG TAB PO SCH ×2 (08:42→16:38)
[2022-06-29] MEDS: APIXABAN 5 MG TABLET PO SCH ×2 (08:42→20:12)
[2022-06-29] MEDS: PREGABALIN 150 MG CAP PO SCH ×2 (08:48→20:13)
[2022-06-29] MEDS ORDERED: ERGOCALCIFEROL 50,000 UNITS 1250 MCG CAP PO SCH (09:00)
--- NOTE | 2022-06-29 12:41 | Hospitalist Progress Note ---
Date of Service June 29, 2022 Assessment & Plan (1) Acute alteration in mental status: Plan: Acute metabolic encephalopathy POA. Now resolved. No UTI. Viral respiratory bio fire panel negative. Evidence of sinusitis on CT. Now with Staph bacteremia, likely from recent midline placed at [facility]. Was started on Unasyn and now Augmentin for sinusitis and IV vancomycin added for bacteremia. Encephalopathy now resolved. Last dose of intravenous vancomycin will be June 30. Last dose of Augmentin will be July 01 (2) Bacteremia: Plan: / bottles (1 set) of blood cultures positive for Staphylococcus epidermidis- statistically would be contaminant but given midline recently placed at [facility] on June 20 and encephalopathy, likely true infection Appreciate ID consult. Currently on intravenous vancomycin through June 30. Repeat blood cultures 06/23 remain NGTD. Midline removed 06/23 (3) Sinusitis: Plan: Seen on CT head on admission. Treated with Unasyn on admission and now on oral Augmentin therapy through July 01 (4) Anemia: Plan: Chronic. 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 Fe-deficiency probably contributing to thrombocytosis. Folate deficient borderline at 5.8--> started folic acid 1mg po daily. Hydroxyurea currently on hold until outpt f/u with Heme. Received intravenous Venofer. Serial labs (5) HTN (hypertension): Plan: Well-controlled. Continue Lasix, lisinopril, metoprolol (6) VIK on CPAP: Plan: CPAP qhs. VBG without significant hypercapnia on admit (7) Paroxysmal atrial fibrillation: Plan: Sinus rhythm on admission. Continue Eliquis, metoprolol (8) PTSD (post-traumatic stress disorder): Plan: Supportive care. Continue prazosin, sertraline, trazodone, buspirone, and bupropion (9) Lewy body dementia: Plan: Appreciate neurology consultation. Reduced dose of carbidopa/levodopa to 1 tablet p.o. 3 times daily from 5 tablets daily to improve agitation and hallucinations. Continue memantine (10) BPH (benign prostatic hyperplasia): Plan: With urinary retention requiring Witt catheter placement at [facility] prior to admission. UC negative. Witt catheter was removed June 28 and he is now voiding without difficulty. Continue finasteride, prazosin (11) History of back surgery: Plan: With hardware in place. No current evidence of infection (12) Vitamin D deficiency: Plan: Severely low level, less than 7 on 06/05/2022. Continue replacement therapy Plan DVT prophylaxis - apixaban Disposition- the patient will no longer be going to the [facility]. He will complete his IV antibiotic therapy here and probably be discharged to [facility] tomorrow, June 30. Appreciate case management efforts. Admission and Anticipated Discharge Date Admission Date: June 24, 2022 Subjective Alert and oriented. No new problems. is at the bedside. Review of Systems Review of Systems: Constitutional-no fever or chills ENT-no blurred vision, no double vision, no epistaxis, no sore throat Respiratory-no cough, no wheezing, no shortness of breath Cardiac-no palpitations, no chest pain, no syncope GI-no nausea, vomiting, diarrhea, melena, hematochezia -no urinary retention, no urinary incontinence, no dysuria, no hematuria Musculoskeletal-no joint pain, no muscle tenderness. Bilateral BKA status Skin-no bruising, no rashes, no pruritus Neuro-no isolated weakness, no paresthesia, no weakness Psych-no depression, no anxiety Physical Exam Physical Exam: General-alert and oriented x3, no fevers, no chills HEENT-head atraumatic and normocephalic, pupils equal and reactive to light, extraocular muscles intact Neck-no lymphadenopathy or thyromegaly, trachea midline Chest-clear to auscultation percussion. No rales wheezing or rhonchi Cardiac-regular rate and rhythm, normal S1 and S2, no murmurs Abdomen-normal bowel sounds, nontender, no hepatosplenomegaly Extremities-bilateral BKA status Neuro-cranial nerves II through XII intact, motor and sensory function within normal limits, strength symmetrical , no focal deficits Psych-normal affect, normal mood Results & Data Results & Data Vital Signs (Past 12 Hours) Vital Signs Temp Pulse Resp BP Pulse Ox O2 Del Method 06/29/22 07:39 36.7 C 63 18 137/76 94 Room Air Laboratory Results 06/29/22 06:25 06/29/22 06:25 PG Care Time/CCT Total # of Minutes Spent Total Time Spent with Patient: Total time spent is greater than 50% in coordination of care (as documented) at patient's floor/unit and/or counseling patient: Coding Level of Care Code 82992 SUB INP/OBS CARE MIN Diagnoses Acute alteration in mental status R41.82 Bacteremia R78.81 Sinusitis J01.90 Chronicity: acute Recurrence: non-recurrent Sinusitis location: unspecified location Anemia D64.9 HTN (hypertension) I10 Hypertension type: essential hypertension VIK on CPAP G47.33; Z99.89 Paroxysmal atrial fibrillation I48.0 PTSD (post-traumatic stress disorder) F43.10 Lewy body dementia G31.83; F02.80 BPH (benign prostatic hyperplasia) N40.0 History of back surgery Z98.890 Vitamin D deficiency E55.9 (3) Sinusitis Chronicity: acute Recurrence: non-recurrent Sinusitis location: unspecified location Qualified Code(s): J01.90 - Acute sinusitis, unspecified (5) HTN (hypertension) Hypertension type: essential hypertension Qualified Code(s): I10 - Essential (primary) hypertension
[2022-06-29] MEDS: traZODone HCL 50 MG TAB PO SCH (20:13)
[2022-06-29] MEDS: PRAZOSIN HCL 1 MG CAP PO SCH (20:13)
[2022-06-30] MEDS: VANCOMYCIN HCL 1,000 MG in SODIUM CHLORIDE 0.9% 250 ML IV SCH ×2 (02:07→13:34)
[2022-06-30] MEDS: SERTRALINE HCL 100 MG TABLET PO SCH (09:56)
[2022-06-30] MEDS: MEMANTINE HCL 5 MG TAB PO SCH (09:56)
[2022-06-30] MEDS: FERROUS SULFATE 325 MG TAB PO SCH (09:57)
[2022-06-30] MEDS: MONTELUKAST SODIUM 10 MG TABLET PO SCH (09:57)
[2022-06-30] MEDS: PANTOprazole 40 MG TAB PO SCH (09:57)
[2022-06-30] MEDS: ATORVASTATIN 10 MG TAB PO SCH (09:57)
[2022-06-30] MEDS: CARBIDOPA/LEVODOPA 25/100MG TAB PO SCH ×2 (09:57→13:36)
[2022-06-30] MEDS: lisinopril 5 MG TAB PO SCH (09:57)
[2022-06-30] MEDS: FUROSEMIDE 20 MG TAB PO SCH (09:57)
[2022-06-30] MEDS: METOPROLOL TARTRATE 25 MG TAB PO SCH (09:58)
[2022-06-30] MEDS: buPROPion XL 300 MG TABCR PO SCH (09:58)
[2022-06-30] MEDS: busPIRone 7.5 MG TAB PO SCH ×2 (09:58→13:36)
[2022-06-30] MEDS: FOLIC ACID 1 MG TAB PO SCH (09:59)
[2022-06-30] MEDS: AMOXICILLIN/CLAVULANATE 875 MG TAB PO SCH (09:59)
[2022-06-30] MEDS: FINASTERIDE 5 MG TAB PO SCH (09:59)
[2022-06-30] MEDS: APIXABAN 5 MG TABLET PO SCH (10:00)
[2022-06-30] MEDS: PREGABALIN 150 MG CAP PO SCH (10:05)
--- NOTE | 2022-06-30 13:05 | Discharge Summary ---
Date of Service June 30, 2022 Admission HPI Per Admitting Provider Addison De Los Santos is a 77-year-old male with past medical history of chronic anemia on hydroxyurea following with hematology oncology, esophagitis under treatment with Diflucan until 06/24 for associated oral candidiasis, paroxysmal A-fib on anticoagulation with Eliquis, VIK on CPAP but unable to tolerate BiPAP at bedtime, PTSD, and vitamin D deficiency who was discharged 06/13/2022 to rehab for weakness after an admission for acute hypoxic respiratory failure 2/2 COVID- pneumonia who presents to the ER for hematuria since Witt placement and increasing confusion. He has no leukocytosis, hemoglobin is 9.0 up from prior 7.8, VBG seven-point , creatinine is with normal baseline and 1.12 on admission, no gross electrolyte derangements, no transaminitis, normal ammonia, and UA with 1+ bacteria and greater than 30 RBCs. Patient is seen at the bedside. History is limited due to his sedation, he awakens to voice and denies pain, chest pressure, fever, chills, dysuria but is confused and oriented to name only. Is not aware of where he is, and frequently falls back asleep. Thought process tangential. Collateral is collected from patient's by phone. Discussed w/ pts . Reports has had tremors, h allucinations, and confusion in the last week since being at rehab. Reports he has had easy confusion in the past, but shaking used to just be in the hands and now seems worse and in the hands. Normally is oriented to his name and , and generally the year and can carry on some of a conversation.- Since being at rehab has been weaker and more fatigued. has noted some low BP with rehab and sittin gup. No chest pain, no chest pressure. No episodes of syncope. Has been complaining of pain with urination, has BPH at baseline. Multiple UTIs in the past, but last check was normal to her knowledge. HPI limited by somnolence and cognitive status Principal Diagnosis Staphylococcal bacteremia, suspected midline IV infection, metabolic encephalop athy, acute sinusitis, iron deficiency Discharge Exam General-alert and oriented x3, no fevers, no chills HEENT-head atraumatic and normocephalic, pupils equal and reactive to light, extraocular muscles intact Neck-no lymphadenopathy or thyromegaly, trachea midline Chest-clear to auscultation percussion. No rales wheezing or rhonchi Cardiac-regular rate and rhythm, normal S1 and S2, no murmurs Abdomen-normal bowel sounds, nontender, no hepatosplenomegaly Extremities-bilateral BKA status Neuro-cranial nerves II through XII intact, motor and sensory function within normal limits, strength symmetrical , no focal deficits Psych-normal affect, normal mood Discharge Data Allergies Allergy/AdvReac Type Severity Reaction Status Date / Time ibuprofen Allergy Intermediate HIVES Verified 06/22/22 15:25 Consultations 06/22/22 14:17 ED Decision to Admit Stat 06/23/22 10:10 Consult Neurology Routine 06/23/22 17:15 Consult Infectious Diseases Routine Ordered Studies 06/22/22 10:19 CT head/brain wo con Stat Hospital Course (1) Acute alteration in mental status: Acute metabolic encephalopathy POA. Now resolved. No UTI. Viral respiratory bio fire panel negative. Evidence of sinusitis on CT. Now with Staph bacteremia, likely from recent midline placed at [place]. Was started on Unasyn and now Augmentin for sinusitis and IV vancomycin added for bacteremia. Encephalopathy now resolved. Last dose of intravenous vancomycin will be later today, June 30. Last dose of Augmentin will be July 01 (2) Bacteremia: 2/ bottles (1 set) of blood cultures positive for Staphylococcus epidermidis- statistically would be contaminant but given midline recently placed at [facility] on June 20 and encephalopathy, likely true infection Appreciate ID consult. Currently on intravenous vancomycin through today, June 30. Repeat blood cultures 06/23 remain NGTD. Midline removed 06/23 (3) Sinusitis: Seen on CT head on admission. Treated with Unasyn on admission and now on oral Augmentin therapy through July 01 (4) Anemia: Chronic. 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 Fe-deficiency probably contributing to thrombocytosis. Folate deficient borderline at 5.8--> started folic acid 1mg po daily. Hydroxyurea currently on hold until outpt f/u with [facility]. Received intravenous Venofer. Serial labs (5) HTN (hypertension): Well-controlled. Continue Lasix, lisinopril, metoprolol (6) VIK on CPAP: CPAP qhs. VBG without significant hypercapnia on admit (7) Paroxysmal atrial fibrillation: Sinus rhythm on admission. Continue Eliquis, metoprolol (8) PTSD (post-traumatic stress disorder): Supportive care. Continue prazosin, sertraline, trazodone, buspirone, and bupropion (9) Lewy body dementia: Appreciate neurology consultation. Reduced dose of carbidopa/levodopa to 1 tablet p.o. 3 times daily from 5 tablets daily to improve agitation and hallucinations. Continue memantine (10) BPH (benign prostatic hyperplasia): With urinary retention requiring Witt catheter placement at [facility] prior to admission. UC negative. Witt catheter was removed June 28 and he is now voiding without difficulty. Continue finasteride, prazosin (11) History of back surgery: With hardware in place. No current evidence of infection (12) Vitamin D deficiency: Severely low level, less than 7 on 06/05/2022. Continue replacement therapy Plan DVT prophylaxis - apixaban Disposition- the patient will no longer be going to the [facility]. He will complete his IV antibiotic therapy here and probably be discharged to [facility] later today, June 30. Appreciate case management efforts. Total Time Total Time Spent Total Time Spent (In Minutes): 40 minutes Discharge Plan Discharge Items Patient Disposition: Transfer [facility] Reason For Visit: AMS, SEDATION Discharge Diagnosis: Metabolic encephalopathy, staph bacteremia, iron deficiency, acute sinusitis Condition on Discharge: Good Activity: Resume your previous activity Non-emergency contact: Primary Care Provider Call non-emergency contact if: you have any medication questions Follow-up/Referrals: [facility] [Primary Care Provider] - Diet: Regular and Heart Healthy Addtl Attending Provider Instructions: Intravenous vancomycin through June 30. Oral Augmentin through July 01 Pending Studies at Discharge: No Stand-Alone Forms: My [facility] Skilled Items Patient informed of condition?: Yes DNR: No Discharge Level of Care: Other Communicable Disease: No Discharge Prognosis: Stable Lines: Peripheral IV Urinary Catheter: No Medications and DC Order Prescriptions: New carbidopa-levodopa 25-100 mg tablet,disintegrating 1 tab PO TID Qty: 30 0RF lisinopril [Zestril] 5 mg Tablet 5 mg PO DAILY Qty: 0 0RF metoprolol tartrate 25 mg Tablet 12.5 mg PO BID Qty: 0 0RF folic acid 1 mg Tablet 1 mg PO QAM Qty: 0 0RF amoxicillin-pot clavulanate 875-125 mg Tablet 1 tab PO BIDM Qty: 0 0RF ferrous sulfate 325 mg (65 mg iron) Tablet,Delayed Release (Dr/Ec) 325 mg PO BIDM Qty: 0 0RF Continued cyclobenzaprine 10 mg tablet 10 mg PO [facility] Tubersol 5 tub. unit /0.1 mL Solution 0.1 tb unit INTRADERMAL DIRECTED Rx Instructions: 2nd step, adminster 0.1 ml seven says after 1st step read.tylen acetaminophen [Tylenol] 325 mg Tablet 650 mg PO Q4 PRN (Reason: .Mild - severe pain, fever) atorvastatin 10 mg tablet 10 mg PO QAM sertraline 100 mg tablet 100 mg PO [facility] prazosin 5 mg capsule 5 mg PO HS magnesium hydroxide [Milk of Magnesia] 400 mg/5 mL Suspension 30 ml PO .DAILY UD PRN (Reason: Constipation) pantoprazole 40 mg tablet,delayed release (DR/EC) 40 mg PO [facility] trazodone 150 mg tablet 150 mg PO HS buspirone 7.5 mg tablet 7.5 mg PO TID Rx Instructions: Give am, afternoon & pm. montelukast 10 mg tablet 10 mg PO HS furosemide 20 mg tablet 20 mg PO DAILY ergocalciferol (vitamin D2) [Vitamin D2] 1,250 mcg (50,000 unit) Capsule 1,250 mcg PO WE albuterol sulfate 90 mcg/actuation Hfa Aerosol Inhaler 2 puff INHALATION Q4 PRN (Reason: Shortness Of Breath Or Wheezing) finasteride 5 mg tablet 5 mg PO QAM sodium chloride 0.9 % (flush) [Normal Saline Flush] Syringe 3 ml IV Q12 Rx Instructions: Flush periperal lock , while not in use bupropion HCl 300 mg tablet extended release 24 hr 300 mg PO DAILY memantine 5 mg tablet 5 mg PO QAM Spiriva with HandiHaler 18 mcg capsule, w/inhalation device 1 cap INHALATION DAILY pregabalin 150 mg capsule 150 mg PO [facility] budesonide-formoterol 160-4.5 mcg/actuation HFA aerosol inhaler 2 puff INHALATION BID Eliquis 5 mg tablet 5 mg PO [facility] Med Pass 60 ml PO BID Discontinued fluconazole 100 mg tablet 100 mg PO QAM Rx Instructions: for 10 days , stop 06/24/2022 hydroxyurea 500 mg capsule 100 mg PO .MONDAY THRU MONDAY carbidopa-levodopa 25-100 mg tablet 2 tab PO [facility]HS carbidopa-levodopa 25-100 mg tablet 1 tab PO .NOON metoprolol tartrate 25 mg tablet 12.5 mg PO BID Rx Instructions: Hold fpr bp <110/60 or hr <60 Discharge Orders: Discharge Order (Routine); Ordered 06/30/22 Ordered By: Ralph Johnson Admission Data Admit Date/Time: 06/24/22 07:43 Attending Provider: Ralph Johnson Admit Provider: Owen Arora Primary Care Provider: [facility] Other Providers: Owen Arora ; Johnathon Lee ; Fabi Webb ; Awilda Chavez Coding Level of Care Code 53721 INP/OBS DISCH >30 MIN Diagnoses Acute alteration in mental status R41.82 Bacteremia R78.81 Sinusitis J01.90 Chronicity: acute Recurrence: non-recurrent Sinusitis location: unspecified location Anemia D64.9 HTN (hypertension) I10 Hypertension type: essential hypertension VIK on CPAP G47.33; Z99.89 Paroxysmal atrial fibrillation I48.0 PTSD (post-traumatic stress disorder) F43.10 Lewy body dementia G31.83; F02.80 BPH (benign prostatic hyperplasia) N40.0 History of back surgery Z98.890 Vitamin D deficiency E55.9
== END 2022-06-30 16:20 | DRG 314 ==
LOC: ED 09:58 → 3W 09:58 → SUATTDRO 15:20 → 3W 19:36 → SUATTDRO 06-24 07:43

== ENCOUNTER 2024-05-01 10:51 | Inpatient (IN) ==
--- NOTE | 2024-04-09 10:00 | Anesthesiology Consultation ---
Date of Service April 09, 2024 Assessment & Plan (1) Encounter for pre-operative examination: Chart Review Chart Review: Pending: Refer to Additional Notes / Consult section (Could we please obtain his discharge summary from 02/2024 [facility] as well as most recent PCP note) and Patient NOT seen in Pre Admission Testing Infectious Disease screening: Per PAT nursing assessment on 04/04/24, No known infectious disease contacts in past 10 days or current infectious disease symptoms. No recent travel outside the country. History Surgery Operation Date: 04/16/24 12:40 Proposed Procedures p Left Transcarotid Artery Revascularization - Jasbir Murray MD Height/Weight Height: 5 ft 4 in Weight: 94.801 kg Allergies Allergy/AdvReac Type Severity Reaction Status Date / Time ibuprofen Allergy Intermediate HIVES Verified 04/04/24 13:19 Medications Home Medications Medication Instructions Recorded Confirmed Last Taken acetaminophen 325 mg tablet 650 mg PO Q4 PRN .Mild - severe 06/22/22 04/04/24 Unknown (Tylenol) pain, fever albuterol sulfate 90 mcg/actuation 2 puff inhalation Q4 PRN Shortness 06/22/22 04/04/24 Unknown aerosol inhaler Of Breath Or Wheezing apixaban 5 mg tablet (Eliquis) 5 mg PO AMHS 06/22/22 04/04/24 06/21/22 21:00 atorvastatin 10 mg tablet 20 mg PO QAM 06/22/22 04/04/24 Unknown budesonide-formoterol HFA 160 2 puff inhalation BID 06/22/22 04/04/24 Unknown mcg-4.5 mcg/actuation aerosol inhaler bupropion HCl 300 mg 24 hr tablet, 300 mg PO QAM 06/22/22 04/04/24 Unknown extended release buspirone 7.5 mg tablet 7.5 mg PO TID 06/22/22 04/04/24 Unknown cyclobenzaprine 10 mg tablet 10 mg PO AMHS 06/22/22 04/04/24 Unknown ergocalciferol (vitamin D2) 1,250 1,250 mcg PO WK 06/22/22 04/04/24 06/19/22 mcg (50,000 unit) capsule (Vitamin D2) finasteride 5 mg tablet 5 mg PO HS 06/22/22 04/04/24 Unknown furosemide 20 mg tablet 20 mg PO QAM 06/22/22 04/04/24 Unknown montelukast 10 mg tablet 10 mg PO HS 06/22/22 04/04/24 Unknown pantoprazole 40 mg tablet,delayed 40 mg PO QAM 06/22/22 04/04/24 Unknown release prazosin 5 mg capsule 5 mg PO HS 06/22/22 04/04/24 Unknown pregabalin 150 mg capsule 150 mg PO AMHS 06/22/22 04/04/24 Unknown sertraline 100 mg tablet 100 mg PO AMHS 06/22/22 04/04/24 Unknown tiotropium bromide 18 mcg capsule 1 cap inhalation QAM 06/22/22 04/04/24 Unknown with inhalation device (Spiriva with HandiHaler) trazodone 150 mg tablet 150 mg PO HS 06/22/22 04/04/24 Unknown ferrous sulfate 325 mg (65 mg 325 mg PO BIDM #0 tabs 06/27/22 04/04/24 Unknown iron) tablet,delayed release folic acid 1 mg tablet 1 mg PO QAM #0 tabs 06/27/22 04/04/24 Unknown carbidopa 25 mg-levodopa 100 mg 3 tab PO TID 04/04/24 04/04/24 Unknown disintegrating tablet clopidogrel 75 mg tablet (Plavix) 75 mg PO QAM 04/04/24 04/04/24 Unknown hydroxyurea 500 mg capsule 500 mg PO DIRECTED 04/04/24 04/04/24 Unknown lisinopril 5 mg tablet (Zestril) 5 mg PO QAM 04/04/24 04/04/24 Unknown Past Medical History Medical History (Updated 04/09/24 @ 10:48 by Martina Goyal PA-C) (HFpEF) heart failure with preserved ejection fraction Anemia follows with heme/onc Asthma well controlled per pt's Atrial tachycardia controlled per pt's ; per chart review, not mentioned in Cardio note BPH (benign prostatic hyperplasia) CKD (chronic kidney disease) COPD (chronic obstructive pulmonary disease) controlled per pt's Diverticular disease GERD (gastroesophageal reflux disease) History of cardioversion History of COVID-19 05/2022 History of kidney stones passed on own History of pneumonia Feb 29, 2024 hospitalized at [facility], resolved per pt's History of stroke 03/01/2024 at [facility] while in hospital, was mild per pt's , had facial drooping which has resolved HTN (hypertension) Hx MRSA infection negative nasal swab on 06/24/15 and 10/05/18 Hx of Clostridium difficile infection 2011 Hx of sepsis 2019 Hx of sigmoidoscopy Hx: UTI (urinary tract infection) none at present Hyperlipidemia Lewy body dementia Obesity On home oxygen therapy 2 LPM VIK (obstructive sleep apnea) non compliant with cpap PAD (peripheral artery disease) Parkinson disease Paroxysmal atrial fibrillation dx approx 2020 > Eliquis > no pacer > [facility] ; per 12/07/23 Cardio note, 'Afib with slow VR' PTSD (post-traumatic stress disorder) do not wake patient by touching, wake patient by saying name Thrombocytosis chronic Wheelchair dependent s/p B/L BKA Past Family History Family History Other Family history non-contributory Past Surgical History Surgical History History of back surgery L5-S1 History of colon resection no colostomy > due to C diff 2011 History of colonoscopy History of tooth extraction Hx of hernia repair S/P bilateral BKA (below knee amputation) right 2019, left 2020 > prosthetic bilat Status post ORIF of fracture of ankle 05/26/[address] Farhan DIEZ with sedation. Social History Smoking Status: Former smoker tobacco type: smokeless tobacco Smoking cigarettes per day: Uncertain. Do You Dip or Chew Tobacco: No (quit approx 3 yrs ago) Smoking End Date: 1972 Hx Alcohol Use: No Alcohol type: beer alcohol intake frequency: holidays/special occasions only Hx Substance Use: No substance use type: does not use Lab Results Anesthesia Preop Results Results Anesthesia Widget: WBC 7.66 K/ul (4.8-10.8) 04/08/24 Hgb 15.4 g/dl (14.0-18.0) 04/08/24 Hct 50.9 % (42.0-52.0) 04/08/24 Plt 740 K/uL (130-400) H 04/08/24 Na 136 mmol/L (136-145) 04/08/24 K 4.4 mmol/L (3.5-5.1) 04/08/24 Cl 102 mmol/L (98-107) 04/08/24 CO2 28 mmol/L (21-32) 04/08/24 BUN 25 mg/dl (6-23) H 04/08/24 Creat 1.05 mg/dl (0.6-1.4) 04/08/24 Glucose Level 182 mg/dl (70-99(Fasting)) H 04/08/24 PT 12.5 Seconds (9.0-12.0) H 04/08/24 PTT 34 Seconds (21-31) H 04/08/24 INR 1.2 (0.9-1.1) H 04/08/24 Blood Type O Positive 04/08/24 Antibody Screen NEGATIVE 04/08/24 Testing Electrocardiogram Date: 04/08/24 NSR with sinus arrhythmia, rate: 79bpm Chest X-Ray Date: 04/08/24 Findings: + NAD Mediastinal widening is noted. The cardiac size is enlarged suggestive of cardiomegaly. Mild pneumonitis change noted in bilateral lower lung zone. As compared previous x-ray date 06/22/2022 present x-ray shows mild cardiomegaly and mild pneumonitis noted. Echocardiogram Date: 12/08/21 EF: 50% RWMA: + none Valvular Disease: + no significant valvular disease LV cavity size is nl LV wall thickness is nl Global systolic function: low normal with EF 50% LA mildly dilated. RA mildly enlarged Mild pulm HTN with est RVSP 34.22mmHg
--- NOTE | 2024-05-01 09:30 | History & Physical Report ---
"Date of Service May 01, 2024 History of Present Illness Primary Care Provider: [facility] Name: EDWARD RAMIREZ Patient Number: [id number] : 1945 Date of Service: 04/02/2024 Chief Complaint: _New patient consultation for left ICA stenosis HPI: _Mr. Ramirez is an elderly male who presents to Dr. Murray's vascular surgery clinic today as a new patient in consultation for left ICA stenosis which was discovered on a recent hospital stay. According to the patient and his family, the patient was admitted to [facility] for pneumonia on 02/29/2024 on 03/04/2024. During this hospital stay he had a minutes long episode of right sided facial droop and difficulty speaking, also possibly some right arm weakness. The symptoms completely resolved. The states that he had similar symptoms to this prior to his hospital admission but this again only lasted a few minutes. Patient does have a history of Parkinson's disease and mild Parkinson's dementia, and is a very poor historian. Patient and the deny any previous history of CVA or TIA. He also has a history of bilateral below-knee amputations performed in 2019 and 2020. Denies any history of myocardial infarction or coronary disease. The patient and his feel that the patient's breathing is at baseline since completing his antibiotics for pneumonia. Patient denies headache, fever, chest pain, shortness of breath, abd ominal pain, nausea, vomiting, rest pain, other concerns. As the patient is a bilateral below-knee amputee, he does require some assistance with his ADLs, however, he is able to use the bathroom himself, as well as feed himself with no assistance. As far as showering and dressing and making meals, he does require assistance for those. He currently is a wheelchair to get around, but does have his below-knee prosthetics on. Review of systems: A total of 14 systems were reviewed and are negative aside from what is related in his HPI CTA of the head and neck performed at [facility] on 03/04/2024 demonstrates severe left ICA stenosis of over 90%. The right ICA has 50 to 60% stenosis. Current Home Meds: (Last Updated 04/02 16:02) apixaban (apixaban 5 mg oral tablet) 5 mg PO bid aspirin (aspirin 81 mg oral delayed release tablet) 81 mg PO Daily atorvastatin (atorvastatin 20 mg oral tablet) 20 mg PO Daily buPROPion (buPROPion 300 mg/24 hours (XL) oral tablet, extended release) 300 mg PO Daily busPIRone (busPIRone 7.5 mg oral tablet) 7.5 mg PO tid carbidopa-levodopa (carbidopa-levodopa 25 mg-100 mg oral tablet) 1 tab PO tid cholecalciferol (Vitamin D3 25 mcg (1000 intl units) oral capsule) 25 mcg PO Daily clopidogrel (clopidogrel 75 mg oral tablet) 75 mg PO Daily cyclobenzaprine (cyclobenzaprine 10 mg oral tablet) 10 mg PO bid PRN: as needed for spasm finasteride (finasteride 5 mg oral tablet) 5 mg PO Daily HAZARDOUS MEDICATION | tablet: green Women of childbearing age should not touch or handle broken tablets. Rehana Gordillo 04/02 14:59 fluticasone-salmeterol (fluticasone-salmeterol Diskus 250 mcg-50 mcg) 1 puff inhaled bid folic acid (folic acid 1 mg oral tablet) 1 mg PO Daily gabapentin (gabapentin 300 mg oral capsule) verify dose 900mg po tid hydroxyurea (hydroxyurea 500 mg oral capsule) 80 mg/kg PO bid HAZARDOUS MEDICATION | tablet: green | capsule: green | suspension: kei Gordillo 04/02 14:59 metoprolol (metoprolol succinate 25 mg oral tablet, extended release) 12.5 mg PO Daily montelukast (montelukast 10 mg oral tablet) 10 mg PO qPM pantoprazole (pantoprazole 40 mg oral delayed release tablet) 40 mg PO Daily prazosin (prazosin 5 mg oral capsule) 5 mg PO qhs pregabalin (pregabalin 100 mg oral capsule) 100 mg PO bid pregabalin (Lyrica 100 mg oral capsule) ONE CAPSULE PO BID FOR TWO DAYS, THEN INCREASE TO ONE CAPSULE TID sertraline (sertraline 200 mg oral capsule) 200 mg PO Daily spironolactone (spironolactone 25 mg oral tablet) 25 mg PO Daily HAZARDOUS MEDICATION | tablet: green | suspension: teal Rehana Gordillo 04/02 14:59 tiotropium (tiotropium 2.5 mcg/inh inhalation aerosol) 2 inh inhaled Daily traZODone (traZODone 150 mg oral tablet) 150 mg PO qhs Allergies and Sensitivities: Motrin(hives) Past Medical History: Problems: Bilateral carotid artery stenosis DVT (deep venous thrombosis) GERD (gastroesophageal reflux disease) Dyslipidemia BPH (benign prostatic hyperplasia) Chronic anemia Anxiety MDD (major depressive disorder) Atrial fibrillation Parkinson disease Asthma Phantom limb pain Below-knee amputation of right lower extremity Ankle arthritis Open fracture of right fibula Preop testing Visit for wound check Fracture of posterior malleolus of right tibia Surgical history: Positive for bilateral below-knee amputations, partial colectomy Family history: Positive for hypertension, diabetes, cancer, stroke Social history: Patient is a previous smoker. He smoked 2 packs a day for 20 years and quit in 1972. He does not drink alcohol or use illicit drugs. He is and lives with his . OBJECTIVE Vitals: Last Updated 04/02/24 15:17 Date Temp BP Location Pulse RR SpO2 Pain 04/02/24 138/60 Left Arm 73 96 04/02/24 98/56 Right Arm 0 01/06/20 10 Vital Signs are the last 3 documented. No Orthostatic Data Available Height and Weight: Last Updated 07/26/19 08:21 Date BMI Wt(kg) Wt(lb) Method Ht(cm) (ft-in) Method 07/26/19 37.91 97.07 214 Standing Scale 160.02 5-3 Patient stated 07/23/19 37.92 97.07 214 Estimated (Emergent use Only) 160 5-3 Standing Heights and Weights are the last 3 documented. Physical Exam Constitutional: In general patient is an obese but healthy-appearing well- nourished well-developed elderly male no distress. Is alert and oriented with any focal deficits. There is some mild confusion particularly with timing and his medical history. His carotids do not demonstrate a bruit. His heart is irregular. His lungs are decreased throughout with sparse expiratory wheezing but clear otherwise. His abdomen soft and tender with no active bowel sounds in all 4 quadrants. He does have some surgical scars which are well-healed. His femoral pulses are +3. Lower extremities demonstrate bilateral BKA's. ASSESSMENT: _ PLAN: _ 1 ) _severe left ICA stenosis, symptomatic Patient has had what sounds to be 2 episodes of slurred speech, right-sided facial droop, and possibly some right hand weakness. Both of them lasted a few minutes at most. He has severe left ICA stenosis on CTA. After review of these images with Dr. Murray, we suggest that patient consider undergoing surgical intervention. Carotid endarterectomy versus TCAR procedures were both discussed at length with the patient and his family by myself. Patient elects to proceed with left TCAR. The procedure benefits and alternatives were discussed with the patient. The risks of the surgery including but not limited to bleeding, infection, nerve damage, CVA, heart attack, , were discussed at length with the patient and his family by myself at Dr. Murray's request. Patient and family expressed understanding and agreement to proceed. Consents were signed by his in the presence of the patient. Patient and family were advised that the patient would need to take 81 mg aspirin daily for at least 3 days prior to the procedure and 30 days postop. This is in addition to his Plavix. They were advised to call with any questions or concerns. They are in agreement to this plan. Thank you for letting us participate in the care of this patient. I have personally spent_55__ minutes performing [id number] and [id number] activities on this date of service.Time does not include separately reported services. Activities Include: x__ review of the medical record _x_ obtaining a history _x_ physical exam/evaluation _x_ review labs _x_ review radiology reports _x_ counseling/educating patient/family/caregiver __ discussion/referral to other healthcare professional _x_ documenting care in the medical record __ independent interpretation of results x__ communication of results to patient/family/caregiver _x_ coordination of care Signature Line Electronic Signature on File CC: Taylor Brannon MD [id number] [facility] [place] [id number] * Electronically Reviewed/Signed by: Sabra Mandel PA-C Author Signature Dt/Tm:04/02/2024 04:28 PM [facility] [place] [address], [address] [place]. [address] Result Type: HVI Outpt Note Date of Service: April 02, 2024 16:05 EST Authorization Status: Final Author or Import Date: WINNIE Mandel Lynn on April 02, 2024 16:28 EST Verified By: WINNIE Mandel Lynn on April 02, 2024 16:28 EST Encounter info: [id number], [place] [address], Clinic, 04/02/2024 - 04/02/2024 Allergies Allergy/AdvReac Type Severity Reaction Status Date / Time ibuprofen Allergy Intermediate HIVES Verified 04/04/24 13:19 Home Medications Medication Instructions Recorded Confirmed Type acetaminophen 325 mg tablet 650 mg PO Q4 PRN .Mild - severe 06/22/22 04/04/24 History (Tylenol) pain, fever albuterol sulfate 90 mcg/actuation 2 puff inhalation Q4 PRN Shortness 06/22/22 04/04/24 History aerosol inhaler Of Breath Or Wheezing apixaban 5 mg tablet (Eliquis) 5 mg PO [facility] 06/22/22 04/04/24 History atorvastatin 10 mg tablet 20 mg PO QAM 06/22/22 04/04/24 History budesonide-formoterol HFA 160 2 puff inhalation BID 06/22/22 04/04/24 History mcg-4.5 mcg/actuation aerosol inhaler bupropion HCl 300 mg 24 hr tablet, 300 mg PO QAM 06/22/22 04/04/24 History extended release buspirone 7.5 mg tablet 7.5 mg PO TID 06/22/22 04/04/24 History cyclobenzaprine 10 mg tablet 10 mg PO [facility] 06/22/22 04/04/24 History ergocalciferol (vitamin D2) 1,250 1,250 mcg PO WK 06/22/22 04/04/24 History mcg (50,000 unit) capsule (Vitamin D2) finasteride 5 mg tablet 5 mg PO HS 06/22/22 04/04/24 History furosemide 20 mg tablet 20 mg PO QAM 06/22/22 04/04/24 History montelukast 10 mg tablet 10 mg PO HS 06/22/22 04/04/24 History pantoprazole 40 mg tablet,delayed 40 mg PO QAM 06/22/22 04/04/24 History release prazosin 5 mg capsule 5 mg PO HS 06/22/22 04/04/24 History pregabalin 150 mg capsule 150 mg PO AMHS 06/22/22 04/04/24 History sertraline 100 mg tablet 100 mg PO [facility] 06/22/22 04/04/24 History tiotropium bromide 18 mcg capsule 1 cap inhalation QAM 06/22/22 04/04/24 History with inhalation device (Spiriva with HandiHaler) trazodone 150 mg tablet 150 mg PO HS 06/22/22 04/04/24 History ferrous sulfate 325 mg (65 mg 325 mg PO BIDM #0 tabs 06/27/22 04/04/24 Rx iron) tablet,delayed release folic acid 1 mg tablet 1 mg PO QAM #0 tabs 06/27/22 04/04/24 Rx carbidopa 25 mg-levodopa 100 mg 3 tab PO TID 04/04/24 04/04/24 History disintegrating tablet clopidogrel 75 mg tablet (Plavix) 75 mg PO QAM 04/04/24 04/04/24 History hydroxyurea 500 mg capsule 500 mg PO DIRECTED 04/04/24 04/04/24 History lisinopril 5 mg tablet (Zestril) 5 mg PO QAM 04/04/24 04/04/24 History Past Med/Surg History Problem List (Updated 04/09/24 @ 10:48 by Martina Goyal PA-C) Encounter for pre-operative examination Lewy body dementia Hematuria (Acute) 05/2022 Somnolence (Acute) Vitamin D deficiency Nephrolithiasis Anemia Esophagitis Hypoxemia 02/2022 Asthma exacerbation 02/2022 Weakness (Acute) COPD exacerbation 02/2022 Peripheral artery disease Atrial tachycardia HTN (hypertension) Paroxysmal atrial fibrillation Atrial fibrillation and flutter DVT prophylaxis Chronic bronchitis Obesity S/P hernia repair History of partial colectomy Prolonged QT interval hx of (RCv=[id number] EKG 05/25/19); 03/2024 EKG does not show prolonged QT DDD (degenerative disc disease) (Acute) History of back surgery (Chronic) back surgery x3 at [facility] VIK on CPAP (Chronic) Noncompliant MRSA (methicillin resistant Staphylococcus aureus) (Chronic) negative nasal swab on 06/24/15 and 10/05/18 PTSD (post-traumatic stress disorder) (Chronic) do not wake patient by touching, wake patient by saying name Asthma (Chronic) BPH (benign prostatic hyperplasia) (Chronic) Medical History (Updated 04/09/24 @ 10:48 by Martina Goyal PA-C) Thrombocytosis chronic CKD (chronic kidney disease) (HFpEF) heart failure with preserved ejection fraction Obesity GERD (gastroesophageal reflux disease) Hyperlipidemia On home oxygen therapy 2 LPM Wheelchair dependent s/p B/L BKA Parkinson disease History of pneumonia Feb 29, 2024 hospitalized at [facility], resolved per pt's History of stroke 03/01/2024 at [facility] while in hospital, was mild per pt's , had facial drooping which has resolved Hx MRSA infection negative nasal swab on 06/24/15 and 10/05/18 PTSD (post-traumatic stress disorder) do not wake patient by touching, wake patient by saying name BPH (benign prostatic hyperplasia) Asthma well controlled per pt's Hx of sepsis 2019 VIK (obstructive sleep apnea) non compliant with cpap History of cardioversion Paroxysmal atrial fibrillation dx approx 2020 > Eliquis > no pacer > [facility] ; per 12/07/23 Cardio note, 'Afib with slow VR' Atrial tachycardia controlled per pt's ; per chart review, not mentioned in Cardio note HTN (hypertension) PAD (peripheral artery disease) COPD (chronic obstructive pulmonary disease) controlled per pt's Hx: UTI (urinary tract infection) none at present History of COVID-19 05/2022 Hx of Clostridium difficile infection 2011 Hx of sigmoidoscopy History of kidney stones passed on own Anemia follows with heme/onc Lewy body dementia Diverticular disease Surgical History History of tooth extraction History of colonoscopy History of back surgery L5-S1 Hx of hernia repair History of colon resection no colostomy > due to C diff 2011 S/P bilateral BKA (below knee amputation) right 2019, left 2020 > prosthetic bilat Status post ORIF of fracture of ankle 05/26/[address] Real SAB with sedation. Family History Other Family history non-contributory Social History Smoking Status: Former smoker Tobacco Type: Smokeless Tobacco (Dip or Chew) Cigarettes Per Day: Uncertain.; Smoking End Date: 1972; Second Hand Exposure: No; Do You Dip or Chew Tobacco: No (quit approx 3 yrs ago); Tobacco Cessation Education Requested by Patient: No Hx Alcohol Use: No Hx Substance Use: No Preferred Language: Greek Communication Ability: Effective Communication Ability Comment: PT CONFUSED Adapted Physical Education Teacher Required: No Beliefs That Will Affect Care: None marital status: Current Living Situation: Spouse Current Living Situation Comment: with wifr and grandson Other Information That Helps Us Care for You: No Feels Safe at Home: Yes Safety Concerns: Feels Safe At This Time Assistive Devices: CPAP, Denture - Upper, Oxygen - Continuous and Prosthesis"
[~2024-05-01 10:51] MED LIST: LR 15ML/HR IV SCH; SODIUM CHLORIDE 0.9% 1,000 ML IV SCH; ceFAZolin 2000MG 2,000 MG/15 ML SYR IV SCH
[2024-05-01 11:35] LABS: BUN Creatinine Ratio 20.2 (10-20); Calcium 9.2 mg/dl (8.6-10.3); Creatinine Clr Calc Pharmacy 57.3 ml/min
[2024-05-01] MEDS: CLOPIDOGREL BISULFATE 75 MG TAB PO ONE (11:59)
[2024-05-01] MEDS: SODIUM CHLORIDE 0.9% 1,000 ML IV SCH (11:59)
[2024-05-01] MEDS ORDERED: ePHEDrine sulfate 50 MG/ML AMP IV PRN (12:05)
[2024-05-01] MEDS ORDERED: PROMETHAZINE HCL 6.25 MG in SODIUM CHLORIDE 0.9% 50 ML IV PRN (12:05)
[2024-05-01] MEDS ORDERED: FLUMAZENIL 0.1 MG/1 ML 10 ML VIAL IV PRN (12:05)
[2024-05-01] MEDS ORDERED: fentaNYL citrate PF 100 MCG/2 ML VIAL IV PRN (12:05)
[2024-05-01] MEDS ORDERED: ONDANSETRON INJ 2 MG/ML 2 ML VIAL IV PRN (12:05)
[2024-05-01] MEDS ORDERED: NALOXONE HCL 0.4 MG/1 ML VIAL/CARP IV PRN (12:05)
[2024-05-01] MEDS ORDERED: ATROPINE SULFATE 0.1 MG/ML 10ML SYR IV PRN (12:05)
--- NOTE | 2024-05-01 12:06 | History & Physical Bridge Note ---
Date of Service May 01, 2024 History & Physical Bridge Note I have examined the patient, reviewed the History & Physical and in the interval since the performance of the History & Physical I have noted the following changes of clinical significance: no changes noted
[2024-05-01] MEDS ORDERED: fentaNYL citrate PF 100 MCG/2 ML VIAL ONE (12:40)
[2024-05-01] MEDS ORDERED: MIDAZOLAM HCL 1 MG/ML 2ML VIAL ONE (12:40)
[2024-05-01] MEDS ORDERED: PROPOFOL IV EMULSION 10 MG/ML 20 ML VIAL IV ONE (12:42)
[2024-05-01] MEDS ORDERED: GLYCOPYRROLATE 0.2 MG/ML VIAL ONE (12:42)
[2024-05-01] MEDS ORDERED: ROCURONIUM BROMIDE 10 MG/ML 5 ML VIAL IV ONE (12:42)
[2024-05-01] MEDS ORDERED: LIDOCAINE 2% 2 ML VIAL/AMP(20MG/ML) INFIL ONE (12:42)
[2024-05-01] MEDS: ceFAZolin 2000MG 2,000 MG/15 ML SYR IV SCH ×2 (13:25→16:58)
[2024-05-01] MEDS ORDERED: ePHEDrine sulfate 50 MG/ML AMP ONE (13:41)
[2024-05-01] MEDS ORDERED: PHENYLEPHRINE HCL 10 MG/ML VIAL ONE (14:19)
[2024-05-01] MEDS ORDERED: PROTAMINE SULFATE 10 MG/ML 5 ML VIAL IV ONE (14:28)
[2024-05-01] MEDS: VISIPAQUE IV ONE (14:29)
[2024-05-01] MEDS: ceFAZolin 330 MG/ML 1 GM VIAL ONE (14:30)
[2024-05-01] MEDS ORDERED: VASOPRESSIN 20 UNIT/ML VIAL ONE (14:32)
[2024-05-01] MEDS ORDERED: SUGAMMADEX SODIUM 200 MG/2 ML VIAL IV ONE (14:34)
[2024-05-01] MEDS: BUPIVACAINE/EPINEPHRINE 0.5% MPF 1:200,000 30 ML VIAL ONE (14:40)
--- NOTE | 2024-05-01 14:45 | Procedure Note ---
Angiogram Post Procedure Fluoroscopy Time (minutes): 5.4 Radiation (mGy): 54 Contrast: 18 Post Operative Report Pre & Post Diagnosis Operation Date: 05/01/24 12:30 Pre-Op Diagnosis: Left Carotid Artery Stenosis Post-Op Diagnosis: Left Carotid Artery Stenosis I identified the patient and participated in the time-out.: Yes Procedure Operation Date: 05/01/24 12:30 Actual Procedures p Left Transcarotid Artery Revascularization(Left), Ultrasound of right common femoral vein - Jasbir Murray MD Surgeon Jasbir Murray MD Field Training Agent Zach,PAC Estimated Blood Loss 20 Findings Consistent with Post-Op Diagnosis Specimens none Anesthesia Type General Complications none Disposition Accompanied Patient To Recovery: No Disposition: Recovery Room Indications This is a 78-year-old gentleman who presented with a symptomatic left internal carotid artery stenosis. Intervention was recommended. We Went over endarterectomy versus TCAR. He elected to go ahead with a TCAR. I have discussed the risks options and benefits of the procedure with the patient. The patient understands the risks options and benefits and agrees to the procedure. Description of Procedure The patient was taken to the operating room and placed in supine position. After general anesthesia was accomplished the groins and left side of the neck and chest were prepped and draped in a sterile manner. Timeout was performed and the patient was identified. A transverse incision was made just above the clavicle between the heads of the sternocleidomastoid. This is carried down to where the common carotid artery was identified. It was isolated. It was slung with umbilical tape. Next the U stitch was placed in the common carotid artery with a 5-0 Prolene suture. Patient was given 9000 heparin at that time. Ultrasound was then used to localize the right common femoral vein. The vein was patent and compressed easily. Under ultrasound guidance the right common femoral vein was punctured and the venous sheath was inserted. This was aspirated and flushed with heparinized saline. ACT at that time was 292. A total of 5000 more of heparin was given in two boluses. Using micropuncture technique the common carotid artery was punctured. The micro sheath was in serted to 3 cm. Injection was then done showing the bifurcation. There was a significant lesion seen at the origin of the internal carotid artery on the left side. We then inserted the J-wire left and short of the lesion. The micro sheath was removed and the TCAR sheath was inserted. Once it was in place and held against the artery it was sutured to the chest wall and the incision edge. We then flushed the tubing appropriately. The venous return to was clamped onto the TCAR sheath. It was flushed through and then attached to the venous inflow sheath in the right groin. Sheath was checked for flow. The saline cleared nicely. The common carotid artery was then clamped. Flow reversal was instituted.The flow reversal was again checked for flow and found to have good flow after clamping. We inserted a 5.5 x 25 balloon backloaded on the wire. The wire was passed through the lesion into the petrous portion of the internal carotid. The 5.5 balloon was then advanced to the lesion. Lesion was then predilated with a 5.5 mm balloon. Balloon was removed. We then inserted the 9/7 x 40 stent. This was deployed across the lesion without difficulty. The catheter was removed. Appeared to be still a slight amount of narrowing at the midportion of the stent. We then inserted a 5.5 balloon and redilated this area. Widely patent stent was then noted on fluoroscopy. The carotid was allowed to go 2 minutes with flow reversal. Completion angiogram was done at that time which showed a widely patent carotid stent. We did another oblique view to make sure there is no pancake appearance of the stent. On this view the stent was also widely patent with no residual stenosis. At that point the common carotid artery was unclamped. The venous return tubing was clamped and removed from the TCAR sheath. The blood was allowed to flow back into the venous system. The TCAR sheath was then removed and the 5-0 Prolene suture securely tied. The patient was given 25 mg of protamine. Hemostasis was noted of the puncture site. An ACT was then drawn. The ACT was 158. The sheath was pulled from the groin and pressure was applied. Wound was irrigated with saline solution. Adequate hemostasis was obtained of the wound. Once this was noted the wound was closed in usual fashion using a 3-0 Vicryl suture for the subcutaneous layer and a 4-0 subcuticular Vicryl suture for the skin edges. Dermabond was used for dressing. The patient left the operation room in satisfactory condition and tolerated the procedure well. All needle and sponge counts were correct at the end of the procedure. Sabra Mandel Pac assisted due to lack of resident availability and was necessary for positioning, draping, retraction, wound closure deep layers, subcutaneous tissue, and skin closure and was necessary for assisting with the case. I attest to the content of the Intraoperative Record and any orders documented therein. Any exceptions are noted below.
--- NOTE | 2024-05-01 15:42 | Anesthesiology Progress Note ---
Date of Service May 01, 2024 Anesthesia Post Procedure Vital Signs Vital Signs: Temp Pulse Resp BP BP BP Pulse Ox 05/01/24 15:35 87 18 143/52 H 95 05/01/24 15:25 79 18 130/46 L 96 05/01/24 15:15 79 15 126/44 L 100 05/01/24 15:05 83 18 146/53 H 100 05/01/24 14:59 36.7 C 86 18 155/71 H 100 05/01/24 11:21 05/01/24 11:21 36.8 C 73 16 152/65 H 144/77 H 97 O2 Del Method O2 Flow Rate 05/01/24 15:35 Nasal Cannula 2 05/01/24 15:25 Nasal Cannula 2 05/01/24 15:15 Nasal Cannula 2 05/01/24 15:05 Oxymask 6 05/01/24 14:59 Oxymask 6 05/01/24 11:21 Oxymask 2 05/01/24 11:21 Oxymask 2 Transfer of Care Handoff Completed per policy Notes Mental Status: alert / awake / arousable Patient Amnestic to Procedure: Yes Nausea / Vomiting: adequately controlled Pain: adequately controlled Airway Patency, RR, SpO2: stable & adequate BP & HR: stable & adequate Hydration State: stable & adequate Anesthetic Complications: no major complications apparent
[2024-05-01] MEDS ORDERED: STAT IV Infusion **Titration per Protocol STA (15:55)
[2024-05-01] MEDS ORDERED: ALBUTEROL HFA 8 GM INHALER INH PRN (15:55)
[2024-05-01] MEDS: CLOPIDOGREL BISULFATE 75 MG TAB ONE (16:36)
[2024-05-01] MEDS: FERROUS SULFATE 325 MG TAB PO SCH (16:58)
[2024-05-01] MEDS: LACTATED RINGER'S 1,000 ML IV SCH (16:59)
--- NOTE | 2024-05-01 17:21 | Critical Care Consultation ---
Date of Consultation May 01, 2024 Assessment & Plan (1) Carotid stenosis: Plan Impression: 78-year-old male with multiple medical comorbidities admitted for elective TCAR on the left. Procedure was successful and he is doing well clinically. He is in the ICU for monitoring postoperatively. Recommendations: 1. Status post left TCAR: Doing well clinically. Continue to follow. 2. Hypertension: Blood pressure goals per vascular surgery. Continue to follow. Await postoperative lab 3. Continue outpatient medications. He is comorbid medical conditions appear to be stable currently. 4. Defer anticoagulation to vascular surgery. Will continue to monitor in the ICU overnight tonight. Disposition per vascular surgery. Thanks for the opportunity participate in the care of this patient. Feel free to contact us with questions or concerns. History of Present Illness Attending Physician: Jasbir Murray MD History of Present Illness Asked by vascular surgery to assist in evaluation management of this patient status post TCAR on the left. History is obtained from review electronic medical record as well as discussion with the patient. The patient is a 78-year-old male who was admitted to [facility] for pneumonia back in February. He had some strokelike symptoms which resolved. He does have Parkinson's disease with some dysphonia. He was evaluated with a CT angiogram of the head and neck which demonstrated severe left internal carotid stenosis of over 90% with a 50 to 60% stenosis in the right internal carotid artery. He was seen in the vascular surgery clinic and felt to be an appropriate candidate for TCAR. He underwent that procedure today. He was extubated and brought to the ICU hemodynamically stable. He has no new complaints. Allergies Allergy/AdvReac Type Severity Reaction Status Date / Time ibuprofen Allergy Intermediate HIVES Verified 05/01/24 11:10 Home Medications Medication Instructions Recorded Confirmed Type acetaminophen 325 mg tablet 650 mg PO Q4 PRN .Mild - severe 06/22/22 05/01/24 History (Tylenol) pain, fever albuterol sulfate 90 mcg/actuation 2 puff inhalation Q4 PRN Shortness 06/22/22 05/01/24 History aerosol inhaler Of Breath Or Wheezing apixaban 5 mg tablet (Eliquis) 5 mg PO AMHS 06/22/22 05/01/24 History atorvastatin 10 mg tablet 20 mg PO QAM 06/22/22 05/01/24 History budesonide-formoterol HFA 160 2 puff inhalation BID 06/22/22 05/01/24 History mcg-4.5 mcg/actuation aerosol inhaler bupropion HCl 300 mg 24 hr tablet, 300 mg PO QAM 06/22/22 05/01/24 History extended release buspirone 7.5 mg tablet 7.5 mg PO TID 06/22/22 05/01/24 History cyclobenzaprine 10 mg tablet 10 mg PO AMHS 06/22/22 05/01/24 History ergocalciferol (vitamin D2) 1,250 1,250 mcg PO WK 06/22/22 05/01/24 History mcg (50,000 unit) capsule (Vitamin D2) finasteride 5 mg tablet 5 mg PO HS 06/22/22 05/01/24 History furosemide 20 mg tablet 20 mg PO QAM 06/22/22 05/01/24 History montelukast 10 mg tablet 10 mg PO HS 06/22/22 05/01/24 History pantoprazole 40 mg tablet,delayed 40 mg PO QAM 06/22/22 05/01/24 History release prazosin 5 mg capsule 5 mg PO HS 06/22/22 05/01/24 History pregabalin 150 mg capsule 150 mg PO AMHS 06/22/22 05/01/24 History sertraline 100 mg tablet 100 mg PO AMHS 06/22/22 05/01/24 History tiotropium bromide 18 mcg capsule 1 cap inhalation QAM 06/22/22 05/01/24 History with inhalation device (Spiriva with HandiHaler) trazodone 150 mg tablet 150 mg PO HS 06/22/22 05/01/24 History ferrous sulfate 325 mg (65 mg 325 mg PO BIDM #0 tabs 06/27/22 05/01/24 Rx iron) tablet,delayed release folic acid 1 mg tablet 1 mg PO QAM #0 tabs 06/27/22 05/01/24 Rx carbidopa 25 mg-levodopa 100 mg 3 tab PO TID 04/04/24 05/01/24 History disintegrating tablet clopidogrel 75 mg tablet (Plavix) 75 mg PO QAM 04/04/24 05/01/24 History hydroxyurea 500 mg capsule 500 mg PO DIRECTED 04/04/24 05/01/24 History aspirin 81 mg capsule 81 mg PO DAILY 05/01/24 05/01/24 History Patient History Medical History (Updated 05/01/24 @ 17:19 by Yonathan Arias MD) Thrombocytosis chronic CKD (chronic kidney disease) (HFpEF) heart failure with preserved ejection fraction Obesity GERD (gastroesophageal reflux disease) Hyperlipidemia On home oxygen therapy 2 LPM Wheelchair dependent s/p B/L BKA Parkinson disease History of pneumonia Feb 29, 2024 hospitalized at [facility], resolved per pt's History of stroke 03/01/2024 at [facility] while in hospital, was mild per pt's , had facial drooping which has resolved Hx MRSA infection negative nasal swab on 06/24/15 and 10/05/18 PTSD (post-traumatic stress disorder) do not wake patient by touching, wake patient by saying name BPH (benign prostatic hyperplasia) Asthma well controlled per pt's Hx of sepsis 2019 VIK (obstructive sleep apnea) non compliant with cpap History of cardioversion Paroxysmal atrial fibrillation dx approx 2020 > Eliquis > no pacer > [facility] ; per 12/07/23 Cardio note, 'Afib with slow VR' Atrial tachycardia controlled per pt's ; per chart review, not mentioned in Cardio note HTN (hypertension) PAD (peripheral artery disease) COPD (chronic obstructive pulmonary disease) controlled per pt's Hx: UTI (urinary tract infection) none at present History of COVID-19 05/2022 Hx of Clostridium difficile infection 2011 Hx of sigmoidoscopy History of kidney stones passed on own Anemia follows with heme/onc Lewy body dementia Diverticular disease Surgical History History of tooth extraction History of colonoscopy History of back surgery L5-S1 Hx of hernia repair History of colon resection no colostomy > due to C diff 2011 S/P bilateral BKA (below knee amputation) right 2019, left 2020 > prosthetic bilat Status post ORIF of fracture of ankle 05/26/[address] Real [facility] with sedation. Family History Other Family history non-contributory Social History Smoking Status: Former smoker Tobacco Type: Smokeless Tobacco (Dip or Chew) Cigarettes Per Day: Uncertain.; Smoking End Date: 1972; Second Hand Exposure: No; Do You Dip or Chew Tobacco: No (quit approx 3 yrs ago); Tobacco Cessation Education Requested by Patient: No Hx Alcohol Use: No Hx Substance Use: No Preferred Language: Montserratian Communication Ability: Effective Communication Ability Comment: PT CONFUSED Financial Services Intern Required: No Beliefs That Will Affect Care: None marital status: Current Living Situation: Spouse Current Living Situation Comment: with wifr and grandson Other Information That Helps Us Care for You: No Feels Safe at Home: Yes Safety Concerns: Feels Safe At This Time Assistive Devices: CPAP, Denture - Upper, Oxygen - Continuous and Prosthesis Review of Systems Review of Systems: Please refer to admission H&P Physical Exam Constitutional: WD/WN, vitals as above Neck: trachea midline, no thyromegaly Respiratory: normal respiratory effort, lungs clear to auscultation Cardiovascular: RRR, no murmur, no edema Chest (Breasts): Chest: normal inspection of chest Gastrointestinal (Abdomen): normal bowel sounds, soft, nontender, no hepatosplenomegaly Musculoskeletal: Extremities: + extremities abnormal to inspection (Bilateral BKAs) Skin: no rashes, warm and dry Neurologic: moves all extremities and awake; no focal motor deficits Psychiatric: Orientation: alert, oriented to person, oriented to place and cooperative Genitourinary: no penis abnormality (Witt catheter in place, no hematuria) Results & Data Results & Data Vital Signs (Past 12 Hours) Vital Signs Temp Pulse Pulse Resp BP BP BP 05/01/24 16:33 72 17 05/01/24 16:04 116/60 05/01/24 16:04 116/60 05/01/24 16:04 16 116/60 05/01/24 16:03 76 05/01/24 15:49 36.5 C 05/01/24 15:35 87 18 05/01/24 15:25 79 18 05/01/24 15:15 79 15 05/01/24 15:05 83 18 05/01/24 14:59 36.7 C 86 18 155/71 H 05/01/24 11:21 05/01/24 11:21 36.8 C 73 16 152/65 H 144/77 H BP Pulse Ox O2 Del Method O2 Flow Rate 05/01/24 16:33 95 05/01/24 16:04 05/01/24 16:04 05/01/24 16:04 05/01/24 16:03 05/01/24 15:49 05/01/24 15:35 143/52 H 95 Nasal Cannula 2 05/01/24 15:25 130/46 L 96 Nasal Cannula 2 05/01/24 15:15 126/44 L 100 Nasal Cannula 2 05/01/24 15:05 146/53 H 100 Oxymask 6 05/01/24 14:59 100 Oxymask 6 05/01/24 11:21 Oxymask 2 05/01/24 11:21 97 Oxymask 2 Critical Care Results & Data Vital Signs (Past 12 Hours) Vital Signs Temp Pulse Pulse Resp BP BP BP 05/01/24 16:33 72 17 05/01/24 16:04 116/60 05/01/24 16:04 116/60 05/01/24 16:04 16 116/60 05/01/24 16:03 76 05/01/24 15:49 36.5 C 05/01/24 15:35 87 18 05/01/24 15:25 79 18 05/01/24 15:15 79 15 05/01/24 15:05 83 18 05/01/24 14:59 36.7 C 86 18 155/71 H 05/01/24 11:21 05/01/24 11:21 36.8 C 73 16 152/65 H 144/77 H BP Pulse Ox O2 Del Method O2 Flow Rate 05/01/24 16:33 95 05/01/24 16:04 05/01/24 16:04 05/01/24 16:04 05/01/24 16:03 05/01/24 15:49 05/01/24 15:35 143/52 H 95 Nasal Cannula 2 05/01/24 15:25 130/46 L 96 Nasal Cannula 2 05/01/24 15:15 126/44 L 100 Nasal Cannula 2 05/01/24 15:05 146/53 H 100 Oxymask 6 05/01/24 14:59 100 Oxymask 6 05/01/24 11:21 Oxymask 2 05/01/24 11:21 97 Oxymask 2 Lab & Micro Results (Past 24 Hours) No Data to Display Na 140 mmol/L (136-145) 05/01/24 K 4.0 mmol/L (3.5-5.1) 05/01/24 Cl 106 mmol/L (98-107) 05/01/24 CO2 30 mmol/L (21-32) 05/01/24 Anion Gap 4 (3-11) 05/01/24 BUN 23 mg/dl (6-23) 05/01/24 Creatinine 1.14 mg/dl (0.6-1.4) 05/01/24 BUN/Creatinine Ratio 20.2 (10-20) H 05/01/24 Glu 129 mg/dl (70-99(Fasting)) H 05/01/24 Ca 9.2 mg/dl (8.6-10.3) 05/01/24 Calcium Level 9.2 mg/dl (8.6-10.3) 05/01/24 11:02 I & O Totals 24 Hours 04/30/24 05/01/24 05/02/24 06:59 06:59 06:59 Intake Total 1600 / 1600 Output Total 20 / 20 Balance 1580 / 1580 Cumulative 04/03/24 08:42 thru 05/01/24 16:41 Intake Total 1600 Output Total 20 Balance 1580 RT Ventilator Mngmt (Last Documented) Ventilator Ordered Settings Respiratory Rate 17 05/01/24 16:33 Ventilator - PT Measurements Respiratory Rate 17 Coding Level of Care Code 15707 INT INP/OBS CARE 2/55MIN Diagnoses Carotid stenosis I65.29
[2024-05-01] MEDS: ONDANSETRON INJ 2 MG/ML 2 ML VIAL IV PRN (17:37)
[2024-05-01] MEDS: SERTRALINE HCL 100 MG TABLET PO SCH (20:33)
[2024-05-01] MEDS: FINASTERIDE 5 MG TAB PO SCH (20:34)
[2024-05-01] MEDS: MONTELUKAST SODIUM 10 MG TABLET PO SCH (20:34)
[2024-05-01] MEDS: CARBIDOPA/LEVODOPA 25/100MG TAB PO SCH (20:36)
[2024-05-01] MEDS: APIXABAN 5 MG TABLET PO SCH (20:36)
[2024-05-01] MEDS: busPIRone 7.5 MG TAB PO SCH (20:36)
[2024-05-01] MEDS: CYCLOBENZAPRINE HCL 10 MG TAB PO SCH (20:37)
[2024-05-01] MEDS: HYDROXYUREA 500 MG CAP PO SCH (20:38)
[2024-05-01] MEDS: PRAZOSIN HCL 1 MG CAP PO SCH (20:40)
[2024-05-01] MEDS: PREGABALIN 150 MG CAP PO SCH (20:41)
[2024-05-01] MEDS: oxyCODONE/ACETAMINOPHEN 5mg/325mg TAB PO PRN (21:28)
[2024-05-01] MEDS: PHENYLEPHRINE/NSS 25 MG/250 ML BAG IV PRN (21:35)
--- OUTSIDE RECORDS SUMMARY | 2024-05-01 21:37 | External Medical Summary | Continuity of Care Document ---
Author Name Unknown Organization [facility] [address] [place], [place] [id number] Care Team Providers Care Mixer Lever Operator Name Role Phone Taylor Brannon Primary Care Physician [phone] [id number] Date(s): 04/09/24 - 04/09/24 [facility] [address] [facility] [address], [address] [place], [place] [phone] Encounter Diagnosis Occlusion and stenosis of bilateral carotid arteries(Final) - Discharge Disposition: Home or Self Care Attending Physician: WINNIE Mandel Lynn Referring Physician: WINNIE Mandel Lynn Encounter Type: Clinic Allergies, Adverse Reactions, Alerts Substance Criticality Severity Reaction Reaction Severity Status Motrin hives Active Medications apixaban 5 mg oral tablet Start: 04/02/24 2:53:00 PM EST, 1 tab, PO, bid Start Date: 04/02/24 Status: Ordered Repeat number: 1 aspirin 81 mg oral delayed release tablet Start: 04/02/24 4:01:00 PM EST, 1 tab, PO, Daily, Disp# 30 tab, Refills: 1, Pharmacy: [facility] Start Date: 04/02/24 Status: Ordered Quantity: 30.0 Unit: tab Repeat number: 2 Indication: Occlusion and stenosis of bilateral carotid arteries atorvastatin 20 mg oral tablet Start: 04/02/24 2:53:00 PM EST, 1 tab, PO, Daily Start Date: 04/02/24 Status: Ordered Repeat number: 1 buPROPion 300 mg/24 hours (XL) oral tablet, extended release Start: 04/02/24 2:54:00 PM EST, 1 tab, PO, Daily Start Date: 04/02/24 Status: Ordered Repeat number: 1 busPIRone 7.5 mg oral tablet Start: 04/02/24 2:54:00 PM EST, 1 tab, PO, tid Start Date: 04/02/24 Status: Ordered Repeat number: 1 carbidopa-levodopa 25 mg-100 mg oral tablet Start: 04/02/24 2:54:00 PM EST, 1 tab, PO, tid Start Date: 04/02/24 Status: Ordered Repeat number: 1 clopidogrel 75 mg oral tablet Start: 04/02/24 2:52:00 PM EST, 1 tab, PO, Daily Start Date: 04/02/24 Status: Ordered Repeat number: 1 cyclobenzaprine 10 mg oral tablet Start: 04/02/24 2:55:00 PM EST, 1 tab, PO, bid, PRN: as needed for spasm Start Date: 04/02/24 Status: Ordered Repeat number: 1 finasteride 5 mg oral tablet Start: 04/02/24 2:55:00 PM EST, 1 tab, PO, Daily Start Date: 04/02/24 Status: Ordered Repeat number: 1 fluticasone-salmeterol Diskus 250 mcg-50 mcg Start: 04/02/24 2:56:00 PM EST, 1 puff, inhaled, bid Start Date: 04/02/24 Status: Ordered Repeat number: 1 folic acid 1 mg oral tablet Start: 04/02/24 2:56:00 PM EST, 1 tab, PO, Daily Start Date: 04/02/24 Status: Ordered Repeat number: 1 hydroxyurea 500 mg oral capsule Start: 04/02/24 2:57:00 PM EST, 80 mg/kg =, PO, bid Start Date: 04/02/24 Status: Ordered Repeat number: 1 Lyrica 100 mg oral capsule Start: 09/03/19 10:50:00 AM EDT, See Instructions, Disp# 90 cap, Refills: 2, ONE CAPSULE PO BID FOR TWO DAYS, THEN INCREASE TO ONE CAPSULE TID Start Date: 09/03/19 Status: Ordered Quantity: 90.0 Unit: cap Repeat number: 3 metoprolol succinate 25 mg oral tablet, extended release Start: 04/02/24 2:57:00 PM EST, 0.5 tab, PO, Daily Start Date: 04/02/24 Status: Ordered Repeat number: 1 montelukast 10 mg oral tablet Start: 04/02/24 2:57:00 PM EST, 1 tab, PO, qPM Start Date: 04/02/24 Status: Ordered Repeat number: 1 pantoprazole 40 mg oral delayed release tablet Start: 04/02/24 2:57:00 PM EST, 1 tab, PO, Daily Start Date: 04/02/24 Status: Ordered Repeat number: 1 prazosin 5 mg oral capsule Start: 04/02/24 2:57:00 PM EST, 1 cap, PO, qhs Start Date: 04/02/24 Status: Ordered Repeat number: 1 pregabalin 100 mg oral capsule Start: 04/02/24 2:58:00 PM EST, 1 cap, PO, bid Start Date: 04/02/24 Status: Ordered Repeat number: 1 sertraline 200 mg oral capsule Start: 04/02/24 2:58:00 PM EST, 1 cap, PO, Daily Start Date: 04/02/24 Status: Ordered Repeat number: 1 spironolactone 25 mg oral tablet Start: 04/02/24 2:58:00 PM EST, 1 tab, PO, Daily Start Date: 04/02/24 Status: Ordered Repeat number: 1 tiotropium 2.5 mcg/inh inhalation aerosol Start: 04/02/24 2:59:00 PM EST, 2 inh, inhaled, Daily Start Date: 04/02/24 Status: Ordered Repeat number: 1 traZODone 150 mg oral tablet Start: 04/02/24 2:59:00 PM EST, 1 tab, PO, qhs Start Date: 04/02/24 Status: Ordered Repeat number: 1 Vitamin D3 25 mcg (1000 intl units) oral capsule Start: 04/02/24 2:54:00 PM EST, 1 cap, PO, Daily Start Date: 04/02/24 Status: Ordered Repeat number: 1 Problem List Condition Confirmation Course Effective Dates Status Health St atus Informant Below-knee amputation of right lower extremity Confirmed Active Anxiety Confirmed Active Asthma Confirmed Active Atrial fibrillation Confirmed Active BPH (benign prostatic hyperplasia) Confirmed Active Bilateral carotid artery stenosis Confirmed Active Chronic anemia Confirmed Active DVT (deep venous thrombosis) Confirmed Active Ankle arthritis Confirmed Active Dyslipidemia Confirmed Active Fracture of posterior malleolus of right tibia Confirmed Active GERD (gastroesophageal reflux disease) Confirmed Active MDD (major depressive disorder) Confirmed Active Open fracture of right fibula Confirmed Active Parkinson disease Confirmed Active Preop testing Confirmed Active Phantom limb pain Confirmed Active Visit for wound check Confirmed Active Procedures Procedure Date Related Diagnosis Body Site Status ORIF - Open reduction and in ternal fixation of fracture, Right Surgery 2019 Completed Tendon transfer, Right Ankle 2019 Completed Sigmoidectomy 08/2011 Completed Umbilical Hernia repair w/mesh 2009 Completed Spinal fusion and Laminectomy L5-S1 2007 Completed Results Laboratory List Name Date Platelet Function (P2Y12 Receptor) (PLT FUNCTION P2Y12) 04/09/24 Most recent to oldest [Reference Range]: 1 P2Y12 Platelet Function [194-418 PRU] 24 PRU 1 *LOW* (04/09/24 12:10 PM) 1Result Comment: PRU reference range is 194-418 (healthy adults, no drug treatment). Post Drug Results: Lower PRU levels are expected following treatment with antiplatelet drugs. Post-treatment values are usually below the stated reference range above. The post-drug PRU values reported in the [employer] P2Y12 package insert are 18-435. This broader range reflects the variability in drug response and is consistent with significant numbers of patients with decreased sensitivity to P2Y12 receptor antagonists (prasugrel or clopidogrel). Clinical studies suggest an on-treatment PRU>230 indicates less than optimal response to therapy, and PRU<208 at 12-24 hours after percutaneous intervention or during follow-up is associated with a lower risk of cardiovascular events (1). (1).Standard-vs high-dose clopidogrel based on platelet function testing after percutaneouscoronary intervention: the GRAVITAS randomized trial. Felix et al. KOKI. 2010May 12; 305(11): 0891-3280. doi: 10.1001/koki.2010.290 Social History Social History Type Response Smoking Status Former Smoker, quit > 1 yr Sex Male Sex Representation Male (finding) Patient Care team information Care Team Personnel Name: MD Brannon Catherine J Position: Referring Member Role: Primary Care Provider [facility] [address] [facility] [facility] [address] Telecom: [phone] Name: Jessica Ramirez Kyle Position: Pharmacist Member Role: Pharmacy - [facility] Address: [address] [place] [id number] [place] Care Team Related Persons Name: LEATHA YORK Name: JAMES, KAYLAN Insurance Providers Guarantor name: ANDRIALIZETH Renny RAMIREZ Health Plan Information #: 1 Payer: MEDICARE Member Number: [id number] Policy Number: NA Group Number: NA Health Plan Information #: 2 Payer: [facility] Member Number: NA Policy Number: NA Group Number: NA Health Plan Information #: 3 Payer: MEDICARE Member Number: [id number] Policy Number: NA Group Number: NA
[2024-05-01] MEDS: traZODone HCL 50 MG TAB PO SCH (23:20)
--- NOTE | 2024-05-02 07:23 | Critical Care Progress Note ---
Date of Service May 02, 2024 Assessment & Plan (1) Carotid stenosis: Plan Impression: 78-year-old male with multiple medical comorbidities admitted for elective TCAR on the left. Procedure was successful and he is doing well clinically. He is in the ICU for monitoring postoperatively. Recommendations: 1. Status post left TCAR: Doing well clinically. Continue to follow. 2. Postoperative hypotension: Currently on Trev-Synephrine. Attempt to wean to off today. Would defend systolic blood pressure greater than 100. If needed, can consider midodrine. Recommend discontinuation of arterial line 3. Continue outpatient medications. He is comorbid medical conditions appear to be stable currently. 4. Defer anticoagulation to vascular surgery. Patient appears to be responding well clinically. Disposition per vascular surgery Admission and Anticipated Discharge Date Admission Date: May 01, 2024 Subjective Patient seen and examined. EMR reviewed. Discussed with overnight critical care LONI as well as bedside nurse and on multidisciplinary rounds. Patient is awake alert and conversant. He has no complaints this morning. His pain is reasonably well-controlled. He has no new neurological complaints. He was started on Trev-Synephrine overnight for low blood pressure which has continued today. Review of Systems 2 Review of Systems: All systems reviewed & are unremarkable except as noted in Subjective Physical Exam 2 Constitutional: WD/WN, vitals as above Neck: trachea midline, no thyromegaly Respiratory: normal respiratory effort, lungs clear to auscultation Cardiovascular: RRR, no murmur, no edema Chest (Breasts): Chest: normal inspection of chest Gastrointestinal (Abdomen): normal bowel sounds, soft, nontender, no hepatosplenomegaly Musculoskeletal: Extremities: + extremities abnormal to inspection (Bilateral BKAs) Skin: no rashes, warm and dry Neurologic: moves all extremities and awake; no focal motor deficits Psychiatric: Orientation: alert, oriented to person, oriented to place and cooperative Genitourinary: no penis abnormality (Witt catheter in place, no hematuria) Results & Data Results & Data Vital Signs (Past 12 Hours) Vital Signs Temp Pulse Resp BP Pulse Ox 05/02/24 06:00 64 22 05/02/24 06:00 116/56 L 05/02/24 05:12 68 18 98 05/02/24 04:24 36.5 C 71 23 99 05/02/24 03:40 63 122/66 05/02/24 03:03 67 19 96 05/02/24 03:00 114/58 L 05/02/24 02:48 68 22 90 05/02/24 02:00 68 14 97 05/02/24 02:00 106/55 L 05/02/24 01:18 77 23 93 05/02/24 01:00 111/55 L 05/02/24 00:03 68 23 94 05/02/24 00:00 84 117/64 05/02/24 00:00 107/54 L 05/01/24 23:57 73 19 100 05/01/24 23:55 77 05/01/24 23:09 75 20 97 05/01/24 23:00 120/59 L 05/01/24 22:51 71 20 96 05/01/24 22:00 36.9 C 125/62 05/01/24 22:00 66 15 94 05/01/24 21:31 107/57 L 05/01/24 21:06 65 24 90 05/01/24 21:00 103/57 L 05/01/24 20:30 69 19 94 05/01/24 20:03 70 23 96 05/01/24 20:00 106/66 05/01/24 20:00 103/53 L 05/01/24 19:42 103/51 L 05/01/24 19:33 74 21 99 Laboratory Results 05/01/24 11:02 Diagnostic Findings No new imaging Coding Level of Care Code 12500 SUB INP/OBS CARE 2MIN Diagnoses Carotid stenosis I65.29
[2024-05-02] MEDS: PANTOprazole 40 MG TAB PO SCH (08:24)
[2024-05-02] MEDS: FOLIC ACID 1 MG TAB PO SCH (08:25)
[2024-05-02] MEDS: FUROSEMIDE 20 MG TAB PO SCH (08:25)
[2024-05-02] MEDS: buPROPion XL 300 MG TABCR PO SCH (08:28)
[2024-05-02] MEDS: CLOPIDOGREL BISULFATE 75 MG TAB PO SCH (08:29)
[2024-05-02] MEDS: ASPIRIN 81 MG ECTAB PO SCH (08:29)
[2024-05-02] MEDS: ATORVASTATIN 20 MG TAB PO SCH (08:29)
[2024-05-02] MEDS: FLUTICASONE/VILANTEROL 200/25MCG 14 PUFFS/INHALER INH SCH (08:30)
[2024-05-02] MEDS: UMECLIDINIUM BROMIDE 62.5MCG/BLISTER 7 PUFFS/INHALER INH SCH (08:30)
--- NOTE | 2024-05-02 13:30 | Surgery Progress Note ---
Date of Service May 02, 2024 Assessment & Plan (1) S/P vascular surgery: Plan: Patient doing well. Came off ephedrine without difficulty. BP in low hundreds at this time. Will d\c today Admission and Anticipated Discharge Date Admission Date: May 01, 2024 Subjective Patient without complaints other than a sore throat. Ate without difficulty. Denies focal deficits. Physical Exam Constitutional: WD/WN, vitals as above Neck: trachea midline Respiratory: normal respiratory effort and + respiratory distress Cardiovascular: Rate/Rhythm: regular rate and regular rhythm Skin: + incision (mild ecchymosis) Neurologic: CN's II-XI intact bilaterally, normal sensation to monofilament and moves all extremities Psychiatric: A+Ox3, euthymic affect Results & Data Vital Signs (Past 12 Hours) Vital Signs Temp Pulse Resp BP Pulse Ox O2 Del Method O2 Flow Rate 05/02/24 12:06 70 28 H 98 05/02/24 11:06 74 15 96 05/02/24 11:00 108/55 L 05/02/24 10:57 68 23 93 05/02/24 10:09 71 18 95 05/02/24 10:03 109/57 L 05/02/24 10:03 109/57 L 05/02/24 09:57 69 17 92 05/02/24 09:49 107/56 L 05/02/24 09:49 107/56 L 05/02/24 09:48 65 16 92 05/02/24 09:18 111/54 L 05/02/24 09:15 67 15 90 05/02/24 09:12 64 21 96 05/02/24 09:01 99/48 L 05/02/24 09:01 99/48 L 05/02/24 08:54 68 20 95 05/02/24 08:38 101/52 L 05/02/24 08:30 63 18 97 05/02/24 08:18 65 20 94 05/02/24 07:30 Nasal Cannula 3 05/02/24 07:06 66 21 92 05/02/24 07:00 108/54 L 05/02/24 06:57 68 18 94 05/02/24 06:00 64 22 05/02/24 06:00 116/56 L 05/02/24 05:12 68 18 98 05/02/24 04:24 36.5 C 71 23 99 05/02/24 03:40 63 122/66 05/02/24 03:03 67 19 96 05/02/24 03:00 114/58 L 05/02/24 02:48 68 22 90 05/02/24 02:00 68 14 97 05/02/24 02:00 106/55 L
--- NOTE | 2024-05-02 13:35 | Discharge Summary ---
"Date of Service May 02, 2024 Admission HPI Per Admitting Provider Name: EDWARD RAMIREZ Patient Number: [id number] : 1945 Date of Service: 04/02/2024 Chief Complaint: _New patient consultation for left ICA stenosis HPI: _Mr. Ramirez is an elderly male who presents to Dr. Murray's vascular surgery clinic today as a new patient in consultation for left ICA stenosis which was discovered on a recent hospital stay. According to the patient and his family, the patient was admitted to [facility] for pneumonia on 02/29/2024 on 03/04/2024. During this hospital stay he had a minutes long episode of right sided facial droop and difficulty speaking, also possibly some right arm weakness. The symptoms completely resolved. The states that he had similar symptoms to this prior to his hospital admission but this again only lasted a few minutes. Patient does have a history of Parkinson's disease and mild Parkinson's dementia, and is a very poor historian. Patient and the deny any previous history of CVA or TIA. He also has a history of bilateral below-knee amputations performed in 2019 and 2020. Denies any history of myocardial infarction or coronary disease. The patient and his feel that the patient's breathing is at baseline since completing his antibiotics for pneumonia. Patient denies headache, fever, chest pain, shortness of breath, abdominal pain, nausea, vomiting, rest pain, other concerns. As the patient is a bilateral below-knee amputee, he does require some assistance with his ADLs, however, he is able to use the bathroom himself, as well as feed himself with no assistance. As far as showering and dressing and making meals, he does require assistance for those. He currently is a wheelchair to get around, but does have his below-knee prosthetics on. Review of systems: A total of 14 systems were reviewed and are negative aside from what is related in his HPI CTA of the head and neck performed at [facility] on 03/04/2024 demonstrates severe left ICA stenosis of over 90%. The right ICA has 50 to 60% stenosis. Current Home Meds: (Last Updated 04/02 16:02) apixaban (apixaban 5 mg oral tablet) 5 mg PO bid aspirin (aspirin 81 mg oral delayed release tablet) 81 mg PO Daily atorvastatin (atorvastatin 20 mg oral tablet) 20 mg PO Daily buPROPion (buPROPion 300 mg/24 hours (XL) oral tablet, extended release) 300 mg PO Daily busPIRone (busPIRone 7.5 mg oral tablet) 7.5 mg PO tid carbidopa-levodopa (carbidopa-levodopa 25 mg-100 mg oral tablet) 1 tab PO tid cholecalciferol (Vitamin D3 25 mcg (1000 intl units) oral capsule) 25 mcg PO Daily clopidogrel (clopidogrel 75 mg oral tablet) 75 mg PO Daily cyclobenzaprine (cyclobenzaprine 10 mg oral tablet) 10 mg PO bid PRN: as needed for spasm finasteride (finasteride 5 mg oral tablet) 5 mg PO Daily HAZARDOUS MEDICATION | tablet: green Women of childbearing age should not touch or handle broken tablets. Rehana Gordillo 04/02 14:59 fluticasone-salmeterol (fluticasone-salmeterol Diskus 250 mcg-50 mcg) 1 puff inhaled bid folic acid (folic acid 1 mg oral tablet) 1 mg PO Daily gabapentin (gabapentin 300 mg oral capsule) verify dose 900mg po tid hydroxyurea (hydroxyurea 500 mg oral capsule) 80 mg/kg PO bid HAZARDOUS MEDICATION | tablet: green | capsule: green | suspension: kei Gordillo 04/02 14:59 metoprolol (metoprolol succinate 25 mg oral tablet, extended release) 12.5 mg PO Daily montelukast (montelukast 10 mg oral tablet) 10 mg PO qPM pantoprazole (pantoprazole 40 mg oral delayed release tablet) 40 mg PO Daily prazosin (prazosin 5 mg oral capsule) 5 mg PO qhs pregabalin (pregabalin 100 mg oral capsule) 100 mg PO bid pregabalin (Lyrica 100 mg oral capsule) ONE CAPSULE PO BID FOR TWO DAYS, THEN INCREASE TO ONE CAPSULE TID sertraline (sertraline 200 mg oral capsule) 200 mg PO Daily spironolactone (spironolactone 25 mg oral tablet) 25 mg PO Daily HAZARDOUS MEDICATION | tablet: green | suspension: teal Rehana Gordillo 04/02 14:59 tiotropium (tiotropium 2.5 mcg/inh inhalation aerosol) 2 inh inhaled Daily traZODone (traZODone 150 mg oral tablet) 150 mg PO qhs Allergies and Sensitivities: Motrin(hives) Past Medical History: Problems: Bilateral carotid artery stenosis DVT (deep venous thrombosis) GERD (gastroesophageal reflux disease) Dyslipidemia BPH (benign prostatic hyperplasia) Chronic anemia Anxiety MDD (major depressive disorder) Atrial fibrillation Parkinson disease Asthma Phantom limb pain Below-knee amputation of right lower extremity Ankle arthritis Open fracture of right fibula Preop testing Visit for wound check Fracture of posterior malleolus of right tibia Surgical history: Positive for bilateral below-knee amputations, partial colectomy Family history: Positive for hypertension, diabetes, cancer, stroke Social history: Patient is a previous smoker. He smoked 2 packs a day for 20 years and quit in 1972. He does not drink alcohol or use illicit drugs. He is and lives with his . OBJECTIVE Vitals: Last Updated 04/02/24 15:17 Date Temp BP Location Pulse RR SpO2 Pain 04/02/24 138/60 Left Arm 73 96 04/02/24 98/56 Right Arm 0 01/06/20 10 Vital Signs are the last 3 documented. No Orthostatic Data Available Height and Weight: Last Updated 07/26/19 08:21 Date BMI Wt(kg) Wt(lb) Method Ht(cm) (ft-in) Method 07/26/19 37.91 97.07 214 Standing Scale 160.02 5-3 Patient stated 07/23/19 37.92 97.07 214 Estimated (Emergent use Only) 160 5-3 Standing Heights and Weights are the last 3 documented. Physical Exam Constitutional: In general patient is an obese but healthy-appearing well- nourished well-developed elderly male no distress. Is alert and oriented with any focal deficits. There is some mild confusion particularly with timing and his medical history. His carotids do not demonstrate a bruit. His heart is irregular. His lungs are decreased throughout with sparse expiratory wheezing but clear otherwise. His abdomen soft and tender with no active bowel sounds in all 4 quadrants. He does have some surgical scars which are well-healed. His femoral pulses are +3. Lower extremities demonstrate bilateral BKA's. ASSESSMENT: _ PLAN: _ 1 ) _severe left ICA stenosis, symptomatic Patient has had what sounds to be 2 episodes of slurred speech, right-sided facial droop, and possibly some right hand weakness. Both of them lasted a few minutes at most. He has severe left ICA stenosis on CTA. After review of these images with Dr. Murray, we suggest that patient consider undergoing surgical intervention. Carotid endarterectomy versus TCAR procedures were both discussed at length with the patient and his family by myself. Patient elects to proceed with left TCAR. The procedure benefits and alternatives were discussed with the patient. The risks of the surgery including but not limited to bleeding, infection, nerve damage, CVA, heart attack, , were discussed at length with the patient and his family by myself at Dr. Murray's request. Patient and family expressed understanding and agreement to proceed. Consents were signed by his in the presence of the patient. Patient and family were advised that the patient would need to take 81 mg aspirin daily for at least 3 days prior to the procedure and 30 days postop. This is in addition to his Plavix. They were advised to call with any questions or concerns. They are in agreement to this plan. Thank you for letting us participate in the care of this patient. I have personally spent_55__ minutes performing [id number] and [id number] activities on this date of service.Time does not include separately reported services. Activities Include: x__ review of the medical record _x_ obtaining a history _x_ physical exam/evaluation _x_ review labs _x_ review radiology reports _x_ counseling/educating patient/family/caregiver __ discussion/referral to other healthcare professional _x_ documenting care in the medical record __ independent interpretation of results x__ communication of results to patient/family/caregiver _x_ coordination of care Signature Line Electronic Signature on File CC: Taylor Brannon MD [address] [facility] [id number] * Electronically Reviewed/Signed by: Sabra Mandel PA-C Author Signature Dt/Tm:04/02/2024 04:28 PM [place] [facility] [address], [address] [place]. [id number] Result Type: HVI Outpt Note Date of Service: April 02, 2024 16:05 EST Authorization Status: Final Author or Import Date: WINNIE Mandel Lynn on April 02, 2024 16:28 EST Verified By: WINNIE Mandel Lynn on April 02, 2024 16:28 EST Encounter info: [id number], [facility], 04/02/2024 - 04/02/2024 Admission Exam Per Admitting Provider Constitutional: In general patient is an obese but healthy-appearing well- nourished well-developed elderly male no distress. Is alert and oriented with any focal deficits. There is some mild confusion particularly with timing and his medical history. His carotids do not demonstrate a bruit. His heart is irregular. His lungs are decreased throughout with sparse expiratory wheezing but clear otherwise. His abdomen soft and tender with no active bowel sounds in all 4 quadrants. He does have some surgical scars which are well-healed. His femoral pulses are +3. Lower extremities demonstrate bilateral BKA's. Principal Diagnosis Left internal carotid artery stenosis Discharge Exam Constitutional WD/WN, vitals as above Neck trachea midline Respiratory normal respiratory effort and + respiratory distress Cardiovascular Rate/Rhythm: regular rate and regular rhythm Skin + incision (mild ecchymosis) Neurologic CN's II-XI intact bilaterally, normal sensation to monofilament and moves all extremities Psychiatric A+Ox3, euthymic affect Discharge Data Allergies Allergy/AdvReac Type Severity Reaction Status Date / Time ibuprofen Allergy Intermediate HIVES Verified 05/01/24 11:10 Consultations 05/01/24 15:55 Consult Scale Expert Routine Procedures Performed Operation Date: 05/01/24 12:30 Actual Procedures p Left Transcarotid Artery Revascularization(Left) - Jasbir Murray MD Ordered Studies 05/01/24 07:21 EV angio carotid cerv LT Routine US EV guide vascular access Routine Hospital Course (1) S/P vascular surgery: Patient doing well. Came off ephedrine without difficulty. BP in low hundreds at this time. Will d\\c today Total Time Total Time Spent Total Time Spent (In Minutes): x Discharge Plan Discharge Items Patient Disposition: Home - Self-Care Reason For Visit: Left Iliac Carotid Artery Stenosis Discharge Diagnosis: Left internal carotid artery stenosis Activity: Per Instructions section Bathing Comment: May shower starting tomorrow Non-emergency contact: Surgeon Call non-emergency contact if: your temperature is above 101.5, your wound has increased redness, your wound has increased drainage and your wound pain has increased Follow-up/Referrals: [facility] [Primary Care Provider] - Diet: Heart Healthy Addtl Attending Provider Instructions: SPECIAL CARE INSTRUCTIONS: Diet: * You may return to previous diet. Medications: * Continue to take Aspirin, plavix, and statin as directed. Incision Care: * You may shower, but do not rub incision. You may let the warm soapy water run over it. Be sure to dry the incision well after bathing. * Do not shave directly over the incision until it is healed. * DO NOT IMMERSE THE INCISION IN A TUB/POOL/etc. UNTIL HEALED. Restrictions: * Do not drive for at least one week or if you are still taking any narcotic pain medication. * Do not lift anything heavier than a gallon of milk for one week after going home. Possible Complications: * Numbness - It is normal to have some numbness around the incision. Numbness can extend beyond the incision to areas of the neck, ear and face. The numbness is due to bruising of nerves during the surgery and will gradually improve over a period of months. * Hoarseness/Difficulty Speaking and Swallowing - The bruising of nerves in the neck can also cause a hoarse voice, difficulty speaking or swallowing. This may improve over time, HOWEVER, if it continues for more than a few days please contact our office ([phone]). * Excessive Swelling - There will be some swelling immediately after surgery which usually resolves within one week. If you notice that the swelling is getting worse, notify your surgeon ([phone]). * Drainage/Bleeding - If there is any drainage or bleeding, it should be a very small amount (less than a teaspoon per day). If you have excessive bleeding or drainage from the incision, call your surgeon ([phone]) right away. ACTIVATION OF EMERGENCY MEDICAL SYSTEM: Call 911, immediately, if you experience any of the following: Warning Signs and Symptoms of Stroke: * Sudden numbness or weakness of the face, arm or leg, especially on one side of the body * Sudden confusion, trouble speaking or understanding * Sudden trouble seeing in one or both eyes * Sudden trouble walking, dizziness, loss of balance or coordination * Sudden severe headache with no cause Do not delay calling 911 if you experience any warning signs or symptoms of a stroke. Delay in seeking medical attention may affect what treatments can be given to you. Risk Factors for Stroke: You can reduce your chances of stroke by working with your medical provider to adopt a healthy lifestyle. Some specific ways to lower your chance of stroke are: * If you are a smoker, now is the time to stop smoking cigarettes * If you are diabetic, improve the control of your blood sugars * Avoid excessive amounts of alcohol * Control high blood pressure * Lose weight if you are overweight * Be sure to lead an active lifestyle * Eat a healthy diet low in salt, cholesterol and fat You should know about other risk factors for stroke that you are unable to control. These include: * Age 55 years or older * Male gender * Certain racial groups: , or / * Family History of Stroke, Mini stroke or Heart Attack * Sickle Cell Disease You will be receiving a call from the Vascular Surgery Nurse after you are discharged. FOLLOW UP VISIT: It is important for you to keep your follow up appointments with your medical provider. Keep any scheduled doctor appointments. Call [phone] to schedule a follow up appointment if one not already scheduled. Pending Studies at Discharge: No Stand-Alone Forms: My [facility], Smoking Cessation Medications and DC Order Prescriptions: New oxycodone-acetaminophen [Percocet] 5-325 mg tablet 1 tab PO TID PRN (Reason: pain) Qty: 10 0RF Continued cyclobenzaprine 10 mg tablet 10 mg PO AMHS acetaminophen [Tylenol] 325 mg Tablet 650 mg PO Q4 PRN (Reason: .Mild - severe pain, fever) atorvastatin 10 mg tablet 20 mg PO QAM sertraline 100 mg tablet 100 mg PO AMHS prazosin 5 mg capsule 5 mg PO HS pantoprazole 40 mg tablet,delayed release (DR/EC) 40 mg PO QAM trazodone 150 mg tablet 150 mg PO HS buspirone 7.5 mg tablet 7.5 mg PO TID Rx Instructions: Give am, afternoon & pm. montelukast 10 mg tablet 10 mg PO HS furosemide 20 mg tablet 20 mg PO QAM ergocalciferol (vitamin D2) [Vitamin D2] 1,250 mcg (50,000 unit) Capsule 1,250 mcg PO WK albuterol sulfate 90 mcg/actuation Hfa Aerosol Inhaler 2 puff INHALATION Q4 PRN (Reason: Shortness Of Breath Or Wheezing) finasteride 5 mg tablet 5 mg PO HS bupropion HCl 300 mg tablet extended release 24 hr 300 mg PO QAM tiotropium bromide [Spiriva with HandiHaler] 18 mcg capsule, w/inhalation device 1 cap INHALATION QAM pregabalin 150 mg capsule 150 mg PO AMHS budesonide-formoterol 160-4.5 mcg/actuation HFA aerosol inhaler 2 puff INHALATION BID Eliquis 5 mg tablet 5 mg PO AMHS folic acid 1 mg Tablet 1 mg PO QAM Qty: 0 0RF ferrous sulfate 325 mg (65 mg iron) Tablet,Delayed Release (Dr/Ec) 325 mg PO BIDM Qty: 0 0RF Patient Comments: not taking at present 04/04/24 clopidogrel [Plavix] 75 mg Tablet 75 mg PO QAM carbidopa-levodopa 25-100 mg tablet,disintegrating 3 tab PO TID hydroxyurea 500 mg Capsule 500 mg PO DIRECTED Patient Comments: BID M-F , no weekends aspirin 81 mg Capsule 81 mg PO DAILY Discharge Orders: Discharge Order (Routine); Ordered 05/02/24 Ordered By: Jasbir Murray Admission Data Admit Date/Time: 05/01/24 12:06 Attending Provider: Jasbir Murray Admit Provider: Jasbir Murray Primary Care Provider: [facility] Other Providers: Johnathon Olmedo; Kaleb Arrieta; Santos Kingston; Yonathan Arias; Venus Romeo; Yasmany Keating; Selene Gonzalez"
[2024-05-02 13:52] VITALS: BP 104/64; PULSE 66; RESP 18; TEMP 98.1; O2SAT 97
[2024-05-02] MEDS: MIDODRINE HCL 10 MG TAB PO SCH (13:52)
[2024-05-07] MEDS ORDERED: ERGOCALCIFEROL 1250 MCG (50,000 UNITS) CAP PO SCH (09:00)
== END 2024-05-02 15:07 | disposition home or self-care (01) | DRG 35 ==
LOC: ASU 10:51 → 1E 12:06
PROC: EV.TCAR (2024-05-01 12:30)

== ENCOUNTER 2024-05-14 16:40 | Inpatient (IN) ==
[2024-05-14 17:20] LABS: Hematocrit (blood only) 21.5 % (42.0-52.0); Hemoglobin 6.1 g/dl (14.0-18.0); Mean Corpuscular Hemoglobin 26.1 pg (25.0-34.0); Mean Corpuscular Hgb Conc 28.4 g/dL (32.0-36.0); Mean Corpuscular Volume 91.9 fL (80.0-100.0); Mean Platelet Volume 10.3 fL (9.4-12.4); Nucleated RBC # (auto) 0.03 K/uL (0.00-0.12); Nucleated RBC % (auto) 0.6 %; Platelet Count 386 K/uL (130-400); RDW Coefficient of Variation 18.8 % (11.5-14.5); RDW Standard Deviation 63.5 fL (36.4-46.3); Red Blood Count 2.34 M/uL (4.70-6.10); White Blood Count 5.24 K/ul (4.8-10.8)
[2024-05-14] MEDS ORDERED: SODIUM CHLORIDE 0.9% 100 ML IV PRN (17:28)
--- NOTE | 2024-05-14 17:33 | Emergency Department Note ---
Impression & Plan Symptomatic anemia, Weakness, Breath shortness ED Provider Note NAME: EDWARD RAMIREZ AGE: 78 SEX: M : 1945 ARRIVES VIA: Ambulance INFORMANT: Patient ED PROVIDER(S): Andi Thompson DO CHIEF COMPLAINT: Low hemoglobin HPI: Patient is a 78-year-old male with a past medical history of anemia, COPD, hypertension, A-fib on Eliquis and Plavix who presents to the ER for a low hemoglobin. He admits to shortness of breath when moving and chest pain when moving. Improves with rest. He is very weak and lethargic. He has not aware of any black or dark tarry stools. Chronically wears 2 L nasal cannula. ADDITIONAL HISTORY OBTAINED: Family is present at bedside and provides additional history and notes that he has been confused since being discharged. Has not changed. Chronic Medical/Social Conditions Affecting Care: Per HPI PAST MEDICAL HISTORY:See Below PAST SURGICAL HISTORY:See Below FAMILY HISTORY:See Below SOCIAL HISTORY:See Below HOME MEDICATIONS:See Below ALLERGIES:See Below VITALS:See Below PHYSICAL EXAMINATION: GENERAL: Sitting up in bed, alert, chronically ill-appearing, pale on 2 L nasal cannula EYE EXAM: normal conjunctiva. OROPHARYNX: no exudate, no erythema, lips, buccal mucosa, and tongue normal and mucous membranes are moist NECK: supple, no nuchal rigidity, no adenopathy, non-tender, incision is clean and dry on the left neck with bruising and swelling LUNGS: Clear to auscultation. Normal chest wall mechanics HEART: no murmurs, S1 normal and S2 normal ABDOMEN: abdomen soft, non-tender, normo-active bowel sounds, no masses, no rebound or guarding. UPPER EXTREMITIES: upper extremities are grossly normal. RECTAL: Faint heme positive stool LOWER EXTREMITIES: No pitting edema. NEURO EXAM: Normal sensorium, cranial nerves II-XII grossly intact, normal speech, no gross weakness of arms, no gross weakness of legs. MEDICAL DECISION MAKING: Patient is a 78-year-old male who presents ER for the above-stated complaint. IV was established and blood work was obtained. Labs show no significant leukocytosis. Significant anemia at 6.1 down from previous of 15. BMP with no significant elevation in BUN to suggest an upper GI bleed. LFTs bilirubin was unremarkable. Troponin was negative. Lipase normal. Patient was typed and crossed and given 2 units of PRBCs while in the ER. CT of the head was negative. CT angio of the neck was unremarkable. Question if this blood loss was secondary to the surgery versus a GI bleed however he denies any dark or tarry stools and rectal showed no black stool and chest faint heme positive. Case was discussed with the hospitalist for further evaluation management treatment. Consults/Care Managements Discussions: Per [facility] Triage Nursing notes reviewed. Limited review of prior medical records performed Vital Signs: reviewed and remarkable for no significant abnormalities Differential diagnosis: Cardiac ischemia, aortic dissection, pulmonary embolism, pneumothorax, pneumonia, pericarditis, myocarditis, esophageal rupture, GERD, cholecystitis, pancreatitis, musculoskeletal, as well as other pathologies. ER treatment provided: See below Diagnostics interpreted by me include EKG and cardiac monitoring as listed below: -Cardiac Monitoring: An order was placed for continuous cardiac monitoring. The monitor shows a rate of 80 with sinus rhythm. -ECG: Sinus rhythm rate of 68 Normal axis No PVCs QTc [address] wave changes in the inferior lateral leads. -Laboratory studies:Interpreted by me as stated above in MDM and shown below. Imaging studies: Xrays: As interpreted by me: Portable AP upright 1 view of the chest shows no focal infiltrate CTs show: CT angios of the neck as well as CT of the head was negative Procedures:none Critical Care: I have personally spent 44 minutes of critical care time in the direct management of this patient. This includes bedside care, interpretation of diagnostic studies, and testing, discussion with consultants, patient, and family members, and other required patient management activities. This 44 minutes is in excess of all separately billable procedures. Past Med/Surg History Problem List (Updated 05/14/24 @ 19:58 by Andi Thompson DO) Breath shortness (Acute) Weakness (Acute) Symptomatic anemia (Acute) Acute encephalopathy Chronic hypoxic respiratory failure, on home oxygen therapy H/O transcarotid artery revascularization (TCAR) Iron deficiency anemia Upper abdominal pain Chest wall pain Symptomatic anemia S/P vascular surgery Carotid stenosis Lewy body dementia Hematuria (Acute) 05/2022 Somnolence (Acute) Vitamin D deficiency Nephrolithiasis Anemia Esophagitis Hypoxemia 02/2022 Asthma exacerbation 02/2022 Weakness (Acute) COPD exacerbation 02/2022 Peripheral artery disease Atrial tachycardia HTN (hypertension) Paroxysmal atrial fibrillation Atrial fibrillation and flutter DVT prophylaxis Chronic bronchitis Obesity S/P hernia repair History of partial colectomy Prolonged QT interval hx of ([id number] EKG 05/25/19); 03/2024 EKG does not show prolonged QT DDD (degenerative disc disease) (Acute) History of back surgery (Chronic) back surgery x3 at [facility] VIK on CPAP (Chronic) Noncompliant MRSA (methicillin resistant Staphylococcus aureus) (Chronic) negative nasal swab on 06/24/15 and 10/05/18 PTSD (post-traumatic stress disorder) (Chronic) do not wake patient by touching, wake patient by saying name Asthma (Chronic) BPH (benign prostatic hyperplasia) (Chronic) Medical History Thrombocytosis chronic CKD (chronic kidney disease) (HFpEF) heart failure with preserved ejection fraction Obesity GERD (gastroesophageal reflux disease) Hyperlipidemia On home oxygen therapy 2 LPM Wheelchair dependent s/p B/L BKA Parkinson disease History of pneumonia Feb 29, 2024 hospitalized at [facility], resolved per pt's History of stroke 03/01/2024 at [facility] while in hospital, was mild per pt's , had facial drooping which has resolved Hx MRSA infection negative nasal swab on 06/24/15 and 10/05/18 PTSD (post-traumatic stress disorder) do not wake patient by touching, wake patient by saying name BPH (benign prostatic hyperplasia) Asthma well controlled per pt's Hx of sepsis 2019 VIK (obstructive sleep apnea) non compliant with cpap History of cardioversion Paroxysmal atrial fibrillation dx approx 2020 > Eliquis > no pacer > follows with [place] cardio ; per 12/07/23 Cardio note, 'Afib with slow VR' Atrial tachycardia controlled per pt's ; per chart review, not mentioned in Cardio note HTN (hypertension) PAD (peripheral artery disease) COPD (chronic obstructive pulmonary disease) controlled per pt's Hx: UTI (urinary tract infection) none at present History of COVID-19 05/2022 Hx of Clostridium difficile infection 2011 Hx of sigmoidoscopy History of kidney stones passed on own Anemia follows with heme/onc Lewy body dementia Diverticular disease Surgical History History of tooth extraction History of colonoscopy History of back surgery L5-S1 Hx of hernia repair History of colon resection no colostomy > due to C diff 2011 S/P bilateral BKA (below knee amputation) right 2019, left 2020 > prosthetic bilat Status post ORIF of fracture of ankle 05/26/[address] Farhan DIEZ with sedation. Family History Mother Colorectal cancer Father PAD (peripheral artery disease) Denies family history of Coronary heart disease Social History (Updated 05/14/24 @ 19:47 by Toño Lopez MD) Tobacco Type: Smokeless Tobacco (Dip or Chew) Smoking End Date: smoked cigarettes briefly in early adult years; Second Hand Exposure: No; Do You Dip or Chew Tobacco: No (quit approx 3 yrs ago); Hx Alcohol Use: No Hx Substance Use: No Preferred Language: Israeli Communication Ability: Effective Communication Ability Comment: PT CONFUSED Door Puller Required: No Beliefs That Will Affect Care: None marital status: Current Living Situation: Spouse Current Living Situation Comment: with and grandson current occupational status: 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; 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 also in the [employer] during How many Children do You have: 2 Feels Safe at Home: Yes Assistive Devices: CPAP, Mechanical Lift, Nebulizer and Wheelchair Allergies Allergies Allergy/AdvReac Type Severity Reaction Status Date / Time ibuprofen Allergy Intermediate HIVES Verified 05/14/24 18:11 Home Meds Home Medications Medication Instructions Recorded Confirmed acetaminophen 325 mg tablet 650 mg PO Q4 PRN PAIN/FEVER 06/22/22 05/14/24 (Tylenol) albuterol sulfate 90 mcg/actuation 2 puff inhalation QID PRN 06/22/22 05/14/24 aerosol inhaler Shortness Of Breath Or Wheezing apixaban 5 mg tablet (Eliquis) 5 mg PO AMHS 06/22/22 05/14/24 bupropion HCl 300 mg 24 hr tablet, 300 mg PO QAM 06/22/22 05/14/24 extended release cyclobenzaprine 10 mg tablet 10 mg PO AMHS PRN MUSCLE SPASMS 06/22/22 05/14/24 finasteride 5 mg tablet 5 mg PO DAILY 06/22/22 05/14/24 montelukast 10 mg tablet 10 mg PO DAILY 06/22/22 05/14/24 prazosin 5 mg capsule 5 mg PO HS 06/22/22 05/14/24 sertraline 100 mg tablet 200 mg PO DAILY 06/22/22 05/14/24 tiotropium bromide 18 mcg capsule 1 cap inhalation QAM 06/22/22 05/14/24 with inhalation device (Spiriva with HandiHaler) trazodone 150 mg tablet 150 mg PO HS 06/22/22 05/14/24 carbidopa 25 mg-levodopa 100 mg 2 tab PO TID 04/04/24 05/14/24 disintegrating tablet clopidogrel 75 mg tablet (Plavix) 75 mg PO QAM 04/04/24 05/14/24 hydroxyurea 500 mg capsule See Rx Instructions .Route .COMPLEX 04/04/24 05/14/24 aspirin 81 mg capsule 81 mg PO DAILY 05/01/24 05/14/24 atorvastatin 40 mg tablet 20 mg PO HS 05/14/24 05/14/24 buspirone 5 mg tablet 7.5 mg PO TID 05/14/24 05/14/24 cholecalciferol (vitamin D3) 25 50 mcg PO DAILY 05/14/24 05/14/24 mcg (1,000 unit) capsule (Vitamin D3) diclofenac sodium 1 % topical gel 2 g topical QID PRN JOINT PAIN 05/14/24 05/14/24 fluticasone 250 mcg-salmeterol 50 1 inh inhalation BID 05/14/24 05/14/24 mcg/dose blistr powdr for inhalation guaifenesin 600 mg tablet, 600 mg PO BID PRN CONGESTION/COUGH 05/14/24 05/14/24 extended release 12 hr (Mucinex) miconazole nitrate 2 % topical 1 applic topical BID PRN FUNGAL 05/14/24 05/14/24 powder INFECTION spironolactone 25 mg tablet 25 mg PO DAILY 05/14/24 05/14/24 Previous Rx's Medication Instructions Recorded folic acid 1 mg tablet 1 mg PO QAM #0 tabs 06/27/22 Results & Data (ED) Vital Signs Vital Signs - 24 hr 05/14/24 16:45 05/14/24 16:45 05/14/24 16:45 Temperature 36.6 C Temperature Source Oral Pulse Rate 71 Respiratory Rate 15 Respiratory Effort / Characteristics Non-Labored Spontaneous Respiratory Depth Normal Normal Blood Pressure 112/69 Blood Pressure Mean 83 Pulse Oximetry 100 Oxygen Delivery Method Nasal Cannula Nasal Cannula Oxygen Flow Rate 2 2 Sepsis Recent Fever Within 48 Hours No Sepsis New/Unexplained Change in Mental Status N/A Sepsis Action Taken by Nursing No Action Required 05/14/24 16:45 05/14/24 17:01 05/14/24 18:34 Temperature 36.9 C Temperature Source Oral Pulse Rate 74 66 Respiratory Rate 15 22 Respiratory Effort / Characteristics Non-Labored Spontaneous Respiratory Depth Normal Blood Pressure 124/80 Blood Pressure Mean 94 Pulse Oximetry 100 Oxygen Delivery Method Oxygen Flow Rate 3 Sepsis Recent Fever Within 48 Hours Sepsis New/Unexplained Change in Mental Status Sepsis Action Taken by Nursing 05/14/24 18:50 05/14/24 19:05 05/14/24 19:35 Temperature 36.6 C 36.6 C 36.5 C Temperature Source Oral Oral Oral Pulse Rate 67 63 62 Respiratory Rate 22 24 18 Respiratory Effort / Characteristics Respiratory Depth Blood Pressure 126/62 117/66 118/62 Blood Pressure Mean 83 83 80 Pulse Oximetry 100 100 100 Oxygen Delivery Method Oxygen Flow Rate 3 3 3 Sepsis Recent Fever Within 48 Hours Sepsis New/Unexplained Change in Mental Status Sepsis Action Taken by Nursing Laboratory Data 05/14/24 16:57 05/14/24 16:57 Lab Results 05/14/24 05/14/24 Range/Units 16:57 16:59 WBC 5.24 (4.8-10.8) K/ul RBC 2.34 L (4.70-6.10) M/uL Hgb 6.1 L* (14.0-18.0) g/dl Hct 21.5 L (42.0-52.0) % MCV 91.9 (80.0-100.0) fL MCH 26.1 (25.0-34.0) pg MCHC 28.4 L (32.0-36.0) g/dL RDW Std Deviation 63.5 H (36.4-46.3) fL RDW Coeff of Hector 18.8 H (11.5-14.5) % Plt Count 386 (130-400) K/uL MPV 10.3 (9.4-12.4) fL Immature Gran % (Auto) 1.3 % Neut % (Auto) 81.1 % Lymph % (Auto) 9.7 % [place] % (Auto) 7.1 % Eos % (Auto) 0.6 % Baso % (Auto) 0.2 % Reticulocyte % (Auto) 6.73 H (0.50-2.00) % Neut # (Auto) 4.25 (1.40-6.50) K/uL Lymph # (Auto) 0.51 L (1.20-3.40) K/uL [place] # (Auto) 0.37 (0.11-0.59) K/uL Eos # (Auto) 0.03 (0.00-0.50) K/uL Baso # (Auto) 0.01 (0.00-0.20) K/uL Reticulocyte # 0.150 H (0.020-0.100) 10^6/uL Immature Gran # (Auto) 0.07 (0.01-0.20) K/uL Absolute Nucleated RBC 0.03 (0.00-0.12) K/uL Nucleated RBC % (auto) 0.6 % Hypersegmented Neuts 2+ Hypochromasia Present Anisocytosis Present Tear Drop Cells 1+ Stomatocytes 1+ Sodium 140 (136-145) mmol/L Potassium 3.6 (3.5-5.1) mmol/L Chloride 106 (98-107) mmol/L Carbon Dioxide 26 (21-32) mmol/L Anion Gap 8 (3-11) BUN 19 (6-23) mg/dl Creatinine 0.92 (0.6-1.4) mg/dl Est Cr Clr Drug Dosing 71.7 ml/min eGFR 86.21 BUN/Creatinine Ratio 20.7 H (10-20) Glucose 92 (70-99(Fasting)) mg/dl Calcium 9.0 (8.6-10.3) mg/dl Iron 15 L (35-175) mcg/dl TIBC 480 H (250-450) mcg/dl Transferrin 343 (200-360) mg/dl Transferrin % Sat 3 L (20-50) % Ferritin 13.5 (8-388) ng/ml Total Bilirubin 0.5 (0.2-1.0) mg/dl AST 8 L (13-39) U/L ALT < 3 L (7-52) U/L Alkaline Phosphatase 44 (34-104) U/L Troponin I High Sens 8.3 (0-20) pg/ml Total Protein 6.5 (6.0-8.3) gm/dl Albumin 4.1 (3.4-5.0) gm/dl Globulin 2.4 L (2.5-4.0) gm/dl Albumin/Globulin Ratio 1.7 (0.9-2) Lipase 24 (11-82) U/L Blood Type O Positive Antibody Screen NEGATIVE Crossmatch See Detail Administered Medications Discontinued Medications Ioversol (Optiray 320 125ml) 118 ml IV ONCE ONE Stop: 05/14/24 18:16 Last Admin: 05/14/24 18:15 Dose: 118 ml Documented By: PLW Imaging Data Radiologist's Impression: Chest X-Ray 05/14/24 16:51 EXAM: XR chest 1V portable CLINICAL HISTORY: Chest pain, nonspecific TECHNIQUE: An X-ray image of the chest is obtained in AP projection. COMPARISON: Last study on 04/08/2024. FINDINGS: Pulmonary Parenchyma: Prominent bronchovascular markings both lungs. No evidence of consolidation, collapse, or focal opacities. No pulmonary nodules are identified. No evidence of pleural effusion or pleural thickening. Heart and Mediastinum: Prominent central pulmonary vessels. Mildly enlrged cardiac size. Prominent aortic arch. Heart size and shape are normal. No mediastinal widening or masses. No hilar or mediastinal lymphadenopathy. Bony Thorax: Bony thorax appears intact without fractures or deformities. Soft Tissues: Soft tissues overlying the chest wall are unremarkable. Chest leads are noted. Bilateral mild acromioclavicular osteoarthritis. IMPRESSION: 1. Prominent bronchovascular markings both lungs and prominent central pulmonary vessels, likely related to pulmonary congestion. Clinical correlation is advised (stable) 2. Mildly enlarged cardiac size with prominent aortic arch. (stable) Electronically signed by Dom Aguilar 05-14-2024 7:[address] 05/14/24 17:33 Clinical History: Confusion Technique: Axial computed tomography images were obtained of the brain without intravenous contrast. Comparison is made to the prior CT dated 03/01/2024 Findings: There is unchanged cerebral atrophy, within expected limits for the patient's age. Areas of decreased attenuation are seen within the periventricular white matter, likely representing chronic small vessel ischemic disease. There is an unchanged small old infarct of the right lentiform nucleus. There is an unchanged old infarct of the left frontal lobe white matter. There is also suspected old left parietal lobe infarct There is no definite sign of acute infarction. No intracranial hemorrhage is evident. No definite mass lesion is seen on this noncontrast examination. There is no midline shift or other form of herniation. No hydrocephalus is seen. No fracture is identified. The orbits and the visualized paranasal sinuses appear unremarkable. The mastoid air cells appear clear. Impression: 1. Unchanged cerebral atrophy, old infarcts, and chronic small vessel ischemic disease 2. No definite acute pathology Electronically signed by Ryan Eric 05-14-2024 6:31 PM Neck CTA 05/14/24 17:34 Clinical history: Confusion Technique: Axial computed tomography images were obtained of the neck after the administration of intravenous contrast according to the CT angiogram protocol Comparison is made to the prior CTA dated 03/01/2024 Findings: There are mild stenoses of the distal common carotid arteries bilaterally with approximately 30% diameter narrowing. There is mild plaque in the right carotid bulb, without stenosis. There is a new patent stent within the left carotid bulb and proximal left internal carotid artery. There is some deformity of the proximal end of the stent that may be due to mass-effect from adjacent calcified plaque. There is an approximately 50% diameter stenosis of the proximal left external carotid artery. There is a mild stenosis of the proximal right external carotid artery The vertebral arteries are patent bilaterally with no significant stenosis seen. The visualized thoracic aorta appears unremarkable There is multilevel degenerative disc disease and osteoarthritis of the cervical spine. Impression: 1. New patent stent in the left carotid bulb and proximal left ICA. There is some deformity of the proximal end of the stent that may be due to adjacent calcified plaque. Correlation with ultrasound could be considered to determine whether this is hemodynamically significant 2. Mild stenoses of the distal CCA bilaterally 3. Mild stenoses of the proximal ECA bilaterally Electronically signed by Ryan Eric 05-14-2024 6:41 PM Discharge Plan Visit Data Chief Complaint: Shortness of Breath/Dyspnea ED Provider: Andi Thompson Discharge Problem: Symptomatic anemia, Weakness, Breath shortness Forms Stand Alone Forms: [employer] Prescriptions Prescriptions: No Action cyclobenzaprine 10 mg tablet 10 mg PO AMHS PRN (Reason: MUSCLE SPASMS) acetaminophen [Tylenol] 325 mg Tablet 650 mg PO Q4 PRN (Reason: PAIN/FEVER) sertraline 100 mg tablet 200 mg PO DAILY prazosin 5 mg capsule 5 mg PO HS trazodone 150 mg tablet 150 mg PO HS montelukast 10 mg tablet 10 mg PO DAILY albuterol sulfate 90 mcg/actuation Hfa Aerosol Inhaler 2 puff INHALATION QID PRN (Reason: Shortness Of Breath Or Wheezing) finasteride 5 mg tablet 5 mg PO DAILY bupropion HCl 300 mg tablet extended release 24 hr 300 mg PO QAM tiotropium bromide [Spiriva with HandiHaler] 18 mcg capsule, w/inhalation device 1 cap INHALATION QAM Eliquis 5 mg tablet 5 mg PO AMHS folic acid 1 mg Tablet 1 mg PO QAM Qty: 0 0RF clopidogrel [Plavix] 75 mg Tablet 75 mg PO QAM carbidopa-levodopa 25-100 mg tablet,disintegrating 2 tab PO TID hydroxyurea 500 mg Capsule See Rx Instructions .ROUTE .COMPLEX Patient Comments: BID M- , no weekends Rx Instructions: TAKES 1,000 MG BID, MONDAY THROUGH MONDAY. OFF MONDAY & SUNDAYS. aspirin 81 mg Capsule 81 mg PO DAILY atorvastatin 40 mg Tablet 20 mg PO HS buspirone [BuSpar] 5 mg Tablet 7.5 mg PO TID fluticasone propion-salmeterol 250-50 mcg/dose Blister With Device 1 inh INHALATION BID miconazole nitrate 2 % Powder 1 applic TOPICAL BID PRN (Reason: FUNGAL INFECTION) spironolactone 25 mg Tablet 25 mg PO DAILY cholecalciferol (vitamin D3) [Vitamin D3] 25 mcg (1,000 unit) Capsule 50 mcg PO DAILY diclofenac sodium [Voltaren] 1 % Gel 2 g TOPICAL QID PRN (Reason: JOINT PAIN) guaifenesin [Mucinex] 600 mg Tablet Extended Release 12hr 600 mg PO BID PRN (Reason: CONGESTION/COUGH) Referrals Referrals: [facility] [Primary Care Provider] -
[2024-05-14 17:35] LABS: Anion Gap 8 (3-11); BUN Creatinine Ratio 20.7 (10-20); Blood Urea Nitrogen 19 mg/dl (6-23); Carbon Dioxide 26 mmol/L (21-32); Chloride 106 mmol/L (98-107); Creatinine Clr Calc Pharmacy 71.7 ml/min; Glucose 92 mg/dl (70-99(Fasting)); Potassium 3.6 mmol/L (3.5-5.1); Sodium 140 mmol/L (136-145)
[2024-05-14 17:38] LABS: Alanine Aminotransferase < 3 U/L (7-52); Albumin Globulin Ratio 1.7 (0.9-2); Albumin Level 4.1 gm/dl (3.4-5.0); Alkaline Phosphatase 44 U/L (34-104); Aspartate Aminotransferase 8 U/L (13-39); Bilirubin,Total 0.5 mg/dl (0.2-1.0); Globulin 2.4 gm/dl (2.5-4.0); Lipase 24 U/L (11-82); Total Protein 6.5 gm/dl (6.0-8.3)
[2024-05-14 17:42] LABS: Troponin I High Sensitivity 8.3 pg/ml (0-20)
[2024-05-14 17:43] LABS: Anisocytosis Present; Basophils # (auto) 0.01 K/uL (0.00-0.20); Basophils % (auto) 0.2 %; Eosinophils # (auto) 0.03 K/uL (0.00-0.50); Eosinophils % (auto) 0.6 %; Hypersegmented Neutrophils 2+; Hypochromasia Present; Immature Granulocytes # (auto) 0.07 K/uL (0.01-0.20); Immature Granulocytes % (auto) 1.3 %; Lymphocytes # (auto) 0.51 K/uL (1.20-3.40); Lymphocytes % (auto) 9.7 %; Monocytes # (auto) 0.37 K/uL (0.11-0.59); Monocytes % (auto) 7.1 %; Neutrophils # (auto) 4.25 K/uL (1.40-6.50); Neutrophils % (auto) 81.1 %; Stomatocytes 1+; Tear Drop Cells 1+
--- NOTE | 2024-05-14 18:08 | History & Physical Report ---
Date of Service May 14, 2024 Assessment & Plan (1) Symptomatic anemia: (2) Chest wall pain: (3) Upper abdominal pain: (4) Iron deficiency anemia: (5) H/O transcarotid artery revascularization (TCAR): (6) History of esophagitis: (7) Lewy body dementia: (8) Paroxysmal atrial fibrillation: (9) BPH (benign prostatic hyperplasia): (10) Chronic hypoxic respiratory failure, on home oxygen therapy: (11) Acute encephalopathy: (12) Splenomegaly: (13) Thrombocytosis: Plan 78yo male with b/l BKA, recent left TCAR on 05/01/[address] Murray, Lewy-body dementia, COPD, chronic hypoxic respiratory failure on home O2 - 2 liters continuously, paroxysmal a.fib on Eliquis, chronic thrombocytosis on hydroxyurea, history of stroke, history of sigmoid resection, & BPH presenting with symptomatic anemia, increased confusion, chest/upper abdominal discomfort, and dyspnea. Upon ER presentation was markedly anemic with hemoglobin 6.1 and trace heme positive stool. Iron studies are consistent with severe iron deficiency. He has been taking aspirin, plavix, and Eliquis since his TCAR surgery on 05/01/24. #symptomatic anemia - * ER has ordered 2 units PRBCs * will recheck CBC 1 hour post-2nd unit * consider IV iron later in the stay * NPO except meds * protonix bolus followed by drip to cover for possible upper GI bleeding source * hold Eliquis * unfortunately, given that we are only 2 weeks out from his TCAR surgery, holding aspirin and plavix could potentially be devestating in that his risk of stent thrombosis would be very high; thus, will need to cautiously continue both agents * GI consultation requested; message sent to on-call provider * will check a retic count to ensure we are not dealing with hemolysis but doubt such; total bili is normal; defer on LDH/haptoglobin for now #chest wall pain - * pain is actually more so in the high epigastric region and left upper quadrant rather than primarily in the chest itself * despite several days of "chest pain" his troponin is negative and his EKG is w/o ischemic changes * he has CAD risk factors but does not have a personal history of such * treat the presumed upper GI tract problem with PPI * place on telemetry #abdominal pain - * high epigastric region and left upper quadrant; differential - esophagitis (had such on CT abd/pelvis in 2022) vs gastritis vs PUD vs splenomegaly vs other * PPI bolus then drip * CT abd/pelvis without contrast ordered to r/o retroperitoneal bleeding in setting of recent femoral vessel puncture during his TCAR * GI consult #iron deficiency - * Fe studies very c/w such * presumed GI bleeding as noted above * consider IV venofer while here * 2 units PRBCs tonight #recent left TCAR - * I corresponded with the primary vascular surgery team and his aspirin/plavix must be continued to prevent carotid stent thrombosis * thus continue asa 81mg daily + plavix 75mg daily * operative site wnl * CTA neck largely wnl * no hematoma or signs of bleeding in this area #paroxysmal a.fib - * hold Eliquis due to concern for GI bleeding * he is not on rate-controlling agents * place on telemetry #chronic hypoxic resp failure on home O2 - * stable on 2 liters NC O2 * recent shortness of breath likely from severe acute anemia rather than COPD * chest x-ray w/o pneumonia * does not examine in CHF * cont inhalers for COPD #acute encephalopathy - * suspect post-operative delirium in the setting of dementia * exacerbated by the surgery itself, the hospital stay for the surgery (was in [facility] for 24 hours), anemia, etc. 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 * this platelet condition does confer increased thrombotic risk thus resume Eliquis when safe from GI standpoint/anemia standpoint History of Present Illness Chief Complaint: fatigue, weakness, poor appetite, shortness of breath, chest discomfort, nausea Primary Care Provider: [facility] 78yo male with b/l BKA, recent left TCAR on 05/01/[address] Murray, Lewy-body dementia, COPD, chronic hypoxic respiratory failure on home O2 - 2 liters continuously, paroxysmal a.fib on Eliquis, chronic thrombocytosis on hydroxyurea, & BPH presents from home due to a variety of symptoms including fatigue, weakness, poor appetite, nausea, upper abdominal pain, lower chest wall pain, pallor, shortness of breath, and increased confusion above his baseline dementia. The patient underwent his Left TCAR at [facility] without any complications and minimal blood loss per the operative record. Since discharge home on May 02 he has had the above symptoms at various points. About 2 days ago the patient was complaining of the chest discomfort along with mild shortness of breath. Since the chest discomfort/shortness of breath persisted into today and given all of the other symptoms his brought him to the ER to be evaluated. Upon presentation his hemoglobin was found to be 6.1. In March 2024 his hemoglobin was ~15. When asked about melena or BRBPR the patient's is uncertain if her has had such as she hasn't seen his stools. She did state that in addition to the nausea he has had constipation as well as the upper abdominal discomfort. Per the ER attending his stool is trace heme+. Allergies Allergy/AdvReac Type Severity Reaction Status Date / Time ibuprofen Allergy Intermediate HIVES Verified 05/14/24 18:11 Home Medications Medication Instructions Recorded Confirmed Type acetaminophen 325 mg tablet 650 mg PO Q4 PRN PAIN/FEVER 06/22/22 05/14/24 History (Tylenol) albuterol sulfate 90 mcg/actuation 2 puff inhalation QID PRN 06/22/22 05/14/24 History aerosol inhaler Shortness Of Breath Or Wheezing apixaban 5 mg tablet (Eliquis) 5 mg PO AMHS 06/22/22 05/14/24 History bupropion HCl 300 mg 24 hr tablet, 300 mg PO QAM 06/22/22 05/14/24 History extended release cyclobenzaprine 10 mg tablet 10 mg PO AMHS PRN MUSCLE SPASMS 06/22/22 05/14/24 History finasteride 5 mg tablet 5 mg PO DAILY 06/22/22 05/14/24 History montelukast 10 mg tablet 10 mg PO DAILY 06/22/22 05/14/24 History prazosin 5 mg capsule 5 mg PO HS 06/22/22 05/14/24 History sertraline 100 mg tablet 200 mg PO DAILY 06/22/22 05/14/24 History tiotropium bromide 18 mcg capsule 1 cap inhalation QAM 06/22/22 05/14/24 History with inhalation device (Spiriva with HandiHaler) trazodone 150 mg tablet 150 mg PO HS 06/22/22 05/14/24 History folic acid 1 mg tablet 1 mg PO QAM #0 tabs 06/27/22 05/14/24 Rx carbidopa 25 mg-levodopa 100 mg 2 tab PO TID 04/04/24 05/14/24 History disintegrating tablet clopidogrel 75 mg tablet (Plavix) 75 mg PO QAM 04/04/24 05/14/24 History hydroxyurea 500 mg capsule See Rx Instructions .Route .COMPLEX 04/04/24 05/14/24 History aspirin 81 mg capsule 81 mg PO DAILY 05/01/24 05/14/24 History atorvastatin 40 mg tablet 20 mg PO HS 05/14/24 05/14/24 History buspirone 5 mg tablet 7.5 mg PO TID 05/14/24 05/14/24 History cholecalciferol (vitamin D3) 25 50 mcg PO DAILY 05/14/24 05/14/24 History mcg (1,000 unit) capsule (Vitamin D3) diclofenac sodium 1 % topical gel 2 g topical QID PRN JOINT PAIN 05/14/24 05/14/24 History fluticasone 250 mcg-salmeterol 50 1 inh inhalation BID 05/14/24 05/14/24 History mcg/dose blistr powdr for inhalation guaifenesin 600 mg tablet, 600 mg PO BID PRN CONGESTION/COUGH 05/14/24 05/14/24 History extended release 12 hr (Mucinex) miconazole nitrate 2 % topical 1 applic topical BID PRN FUNGAL 05/14/24 05/14/24 History powder INFECTION spironolactone 25 mg tablet 25 mg PO DAILY 05/14/24 05/14/24 History Past Med/Surg History Problem List (Updated 05/14/24 @ 22:04 by Toño Lopez MD) Thrombocytosis chronic Splenomegaly History of esophagitis Breath shortness (Acute) Weakness (Acute) Symptomatic anemia (Acute) Acute encephalopathy Chronic hypoxic respiratory failure, on home oxygen therapy H/O transcarotid artery revascularization (TCAR) Iron deficiency anemia Upper abdominal pain Chest wall pain Symptomatic anemia S/P vascular surgery Carotid stenosis Lewy body dementia Hematuria (Acute) 05/2022 Somnolence (Acute) Vitamin D deficiency Nephrolithiasis Anemia Esophagitis Hypoxemia 02/2022 Asthma exacerbation 02/2022 Weakness (Acute) COPD exacerbation 02/2022 Peripheral artery disease Atrial tachycardia HTN (hypertension) Paroxysmal atrial fibrillation Atrial fibrillation and flutter DVT prophylaxis Chronic bronchitis Obesity S/P hernia repair History of partial colectomy Prolonged QT interval hx of (OCu=365 EKG 05/25/19); 03/2024 EKG does not show prolonged QT DDD (degenerative disc disease) (Acute) History of back surgery (Chronic) back surgery x3 at [facility] VIK on CPAP (Chronic) Noncompliant MRSA (methicillin resistant Staphylococcus aureus) (Chronic) negative nasal swab on 06/24/15 and 10/05/18 PTSD (post-traumatic stress disorder) (Chronic) do not wake patient by touching, wake patient by saying name Asthma (Chronic) BPH (benign prostatic hyperplasia) (Chronic) Medical History Thrombocytosis chronic CKD (chronic kidney disease) (HFpEF) heart failure with preserved ejection fraction Obesity GERD (gastroesophageal reflux disease) Hyperlipidemia On home oxygen therapy 2 LPM Wheelchair dependent s/p B/L BKA Parkinson disease History of pneumonia Feb 29, 2024 hospitalized at [facility], resolved per pt's History of stroke 03/01/2024 at [facility] while in hospital, was mild per pt's , had facial drooping which has resolved Hx MRSA infection negative nasal swab on 06/24/15 and 10/05/18 PTSD (post-traumatic stress disorder) do not wake patient by touching, wake patient by saying name BPH (benign prostatic hyperplasia) Asthma well controlled per pt's Hx of sepsis 2019 VIK (obstructive sleep apnea) non compliant with cpap History of cardioversion Paroxysmal atrial fibrillation dx approx 2020 > Eliquis > no pacer > follows with [place] [facility] ; per 12/07/23 Cardio note, 'Afib with slow VR' Atrial tachycardia controlled per pt's ; per chart review, not mentioned in Cardio note HTN (hypertension) PAD (peripheral artery disease) COPD (chronic obstructive pulmonary disease) controlled per pt's Hx: UTI (urinary tract infection) none at present History of COVID-19 05/2022 Hx of Clostridium difficile infection 2011 Hx of sigmoidoscopy History of kidney stones passed on own Anemia follows with heme/onc Lewy body dementia Diverticular disease Surgical History History of tooth extraction History of colonoscopy History of back surgery L5-S1 Hx of hernia repair History of colon resection no colostomy > due to C diff 2011 S/P bilateral BKA (below knee amputation) right 2019, left 2020 > prosthetic bilat Status post ORIF of fracture of ankle 05/26/[address] Farhan DIEZ with sedation. Family History Mother Colorectal cancer Father PAD (peripheral artery disease) Denies family history of Coronary heart disease Social History (Updated 05/14/24 @ 19:47 by Toño Lopez MD) Smoking Status: Former smoker Tobacco Type: Smokeless Tobacco (Dip or Chew) Smoking End Date: smoked cigarettes briefly in early adult years; Second Hand Exposure: No; Do You Dip or Chew Tobacco: No (quit approx 3 yrs ago); Hx Alcohol Use: No Hx Substance Use: No Preferred Language: Armenian Communication Ability: Effective Communication Ability Comment: PT CONFUSED [employer] Oven Patcher Required: No Beliefs That Will Affect Care: None marital status: Current Living Situation: Spouse Current Living Situation Comment: with and grandson current occupational status: 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; 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 also in the [employer] during How many Children do You have: 2 Other Information That Helps Us Care for You: No Feels Safe at Home: Yes Safety Concerns: Feels Safe At This Time Assistive Devices: CPAP, Denture - Upper, Oxygen - Continuous, Prosthesis and Wheelchair Review of Systems Review of Systems: ROS obtained from pt's & his sister: gen - no fevers; poor appetite since his carotid surgery HENT - no URI symptoms CV - chest discomfort - see HPI; no edema pulm - mild intermittent shortness of breath; on chronic O2; no cough GI - upper abdominal discomfort; no vomiting; +nausea; uncertain if any melena stool or BRBPR - some LUTS musculo - no joint pains skin - no rash; +pallor endo - no diabetes neuro - no headache; chronic memory loss with worsening confusion last 2 weeks Physical Exam Physical Exam: gen - lying comfortably in bed, NAD eyes - PERRL mouth - MMM, no lesions neck - no JVD, surgical incision site well-healed just above left clavicle; no hematoma, scant ecchymoses posterior neck on left heart - RRR, occasional extra beats, s1 s2, no murmur lungs - occasional faint end-exp wheeze scattered b/l, otherwise CTA b/l; no rales abd - soft, ND, tender high epigastric area and LUQ, BS+, no HSM; no olea-mast sign b/l; right groin - recent vascular access site clean, no ecchymoses; large midline abdominal wall scar ext - b/l BKA; b/l prosthetic legs in place; no edema of thighs skin - no rash; generalized pallor psych - oriented to person only Results & Data Results & Data Vital Signs (Past 12 Hours) Vital Signs Temp Pulse Resp BP Pulse Ox O2 Del Method O2 Flow Rate 05/14/24 17:01 74 05/14/24 16:45 15 05/14/24 16:45 Nasal Cannula 2 05/14/24 16:45 36.6 C 71 15 112/69 100 Nasal Cannula 2 Laboratory Results Laboratory Results - last 24 hr 05/14/24 05/14/24 16:57 16:59 WBC 5.24 RBC 2.34 L Hgb 6.1 L* Hct 21.5 L MCV 91.9 MCH 26.1 MCHC 28.4 L RDW Std Deviation 63.5 H RDW Coeff of Hector 18.8 H Plt Count 386 MPV 10.3 Immature Gran % (Auto) 1.3 Neut % (Auto) 81.1 Lymph % (Auto) 9.7 Rooks % (Auto) 7.1 Eos % (Auto) 0.6 Baso % (Auto) 0.2 Reticulocyte % (Auto) 6.73 H Neut # (Auto) 4.25 Lymph # (Auto) 0.51 L Rooks # (Auto) 0.37 Eos # (Auto) 0.03 Baso # (Auto) 0.01 Reticulocyte # 0.150 H Immature Gran # (Auto) 0.07 Absolute Nucleated RBC 0.03 Nucleated RBC % (auto) 0.6 Hypersegmented Neuts 2+ Hypochromasia Present Anisocytosis Present Tear Drop Cells 1+ Stomatocytes 1+ Sodium 140 Potassium 3.6 Chloride 106 Carbon Dioxide 26 Anion Gap 8 BUN 19 Creatinine 0.92 Est Cr Clr Drug Dosing 71.7 eGFR 86.21 BUN/Creatinine Ratio 20.7 H Glucose 92 Calcium 9.0 Iron 15 L TIBC 480 H Transferrin 343 Transferrin % Sat 3 L Ferritin 13.5 Total Bilirubin 0.5 AST 8 L ALT < 3 L Alkaline Phosphatase 44 Troponin I High Sens 8.3 Total Protein 6.5 Albumin 4.1 Globulin 2.4 L Albumin/Globulin Ratio 1.7 Lipase 24 Blood Type O Positive Antibody Screen NEGATIVE Crossmatch See Detail Diagnostic Findings Chest X-Ray 05/14/24 16:51 EXAM: XR chest 1V portable CLINICAL HISTORY: Chest pain, nonspecific TECHNIQUE: An X-ray image of the chest is obtained in AP projection. COMPARISON: Last study on 04/08/2024. FINDINGS: Pulmonary Parenchyma: Prominent bronchovascular markings both lungs. No evidence of consolidation, collapse, or focal opacities. No pulmonary nodules are identified. No evidence of pleural effusion or pleural thickening. Heart and Mediastinum: Prominent central pulmonary vessels. Mildly enlrged cardiac size. Prominent aortic arch. Heart size and shape are normal. No mediastinal widening or masses. No hilar or mediastinal lymphadenopathy. Bony Thorax: Bony thorax appears intact without fractures or deformities. Soft Tissues: Soft tissues overlying the chest wall are unremarkable. Chest leads are noted. Bilateral mild acromioclavicular osteoarthritis. IMPRESSION: 1. Prominent bronchovascular markings both lungs and prominent central pulmonary vessels, likely related to pulmonary congestion. Clinical correlation is advised (stable) 2. Mildly enlarged cardiac size with prominent aortic arch. (stable) Electronically signed by Dom Aguilar 05-14-2024 7:[address] 05/14/24 17:33 Clinical History: Confusion Technique: Axial computed tomography images were obtained of the brain without intravenous contrast. Comparison is made to the prior CT dated 03/01/2024 Findings: There is unchanged cerebral atrophy, within expected limits for the patient's age. Areas of decreased attenuation are seen within the periventricular white matter, likely representing chronic small vessel ischemic disease. There is an unchanged small old infarct of the right lentiform nucleus. There is an unchanged old infarct of the left frontal lobe white matter. There is also suspected old left parietal lobe infarct There is no definite sign of acute infarction. No intracranial hemorrhage is evident. No definite mass lesion is seen on this noncontrast examination. There is no midline shift or other form of herniation. No hydrocephalus is seen. No fracture is identified. The orbits and the visualized paranasal sinuses appear unremarkable. The mastoid air cells appear clear. Impression: 1. Unchanged cerebral atrophy, old infarcts, and chronic small vessel ischemic disease 2. No definite acute pathology Electronically signed by Ryan Eric 05-14-2024 6:31 PM Neck CTA 05/14/24 17:34 Clinical history: Confusion Technique: Axial computed tomography images were obtained of the neck after the administration of intravenous contrast according to the CT angiogram protocol Comparison is made to the prior CTA dated 03/01/2024 Findings: There are mild stenoses of the distal common carotid arteries bilaterally with approximately 30% diameter narrowing. There is mild plaque in the right carotid bulb, without stenosis. There is a new patent stent within the left carotid bulb and proximal left internal carotid artery. There is some deformity of the proximal end of the stent that may be due to mass-effect from adjacent calcified plaque. There is an approximately 50% diameter stenosis of the proximal left external carotid artery. There is a mild stenosis of the proximal right external carotid artery The vertebral arteries are patent bilaterally with no significant stenosis seen. The visualized thoracic aorta appears unremarkable There is multilevel degenerative disc disease and osteoarthritis of the cervical spine. Impression: 1. New patent stent in the left carotid bulb and proximal left ICA. There is some deformity of the proximal end of the stent that may be due to adjacent calcified plaque. Correlation with ultrasound could be considered to determine whether this is hemodynamically significant 2. Mild stenoses of the distal CCA bilaterally 3. Mild stenoses of the proximal ECA bilaterally Electronically signed by Ryan Eric 05-14-2024 6:41 PM EKG- my reading- NSR, no ST changes Code Status & VTE Plan Code Status full code per his PG Care Time/CCT Total # of Minutes Spent Total Time Spent with Patient: Total time spent is greater than 50% in coordination of care (as documented) at patient's floor/unit and/or counseling patient: Coding Level of Care Code 83624 INT INP/OBS CARE 3/75MIN Diagnoses Symptomatic anemia D64.9 Chest wall pain R07.89 Upper abdominal pain R10.10 Iron deficiency anemia D50.9 H/O transcarotid artery revascularization (TCAR) Z98.62 History of esophagitis Z87.19 Lewy body dementia G31.83; F02.80 Paroxysmal atrial fibrillation I48.0 BPH (benign prostatic hyperplasia) N40.0 Chronic hypoxic respiratory failure, on home oxygen therapy J96.11; Z99.81 Acute encephalopathy G93.40 Splenomegaly R16.1 Thrombocytosis D75.839
[2024-05-14] MEDS: OPTIRAY 320 125ml IV ONE (18:15)
--- NOTE | 2024-05-14 18:31 | CT Scan Report ---
Clinical History: Confusion Technique: Axial computed tomography images were obtained of the brain without intravenous contrast. Comparison is made to the prior CT dated 03/01/2024 Findings: There is unchanged cerebral atrophy, within expected limits for the patient's age. Areas of decreased attenuation are seen within the periventricular white matter, likely representing chronic small vessel ischemic disease. There is an unchanged small old infarct of the right lentiform nucleus. There is an unchanged old infarct of the left frontal lobe white matter. There is also suspected old left parietal lobe infarct There is no definite sign of acute infarction. No intracranial hemorrhage is evident. No definite mass lesion is seen on this noncontrast examination. There is no midline shift or other form of herniation. No hydrocephalus is seen. No fracture is identified. The orbits and the visualized paranasal sinuses appear unremarkable. The mastoid air cells appear clear. Impression: 1. Unchanged cerebral atrophy, old infarcts, and chronic small vessel ischemic disease 2. No definite acute pathology Electronically signed by Ryan Eric 05-14-2024 6:31 PM
--- NOTE | 2024-05-14 18:41 | CT Scan Report ---
Clinical history: Confusion Technique: Axial computed tomography images were obtained of the neck after the administration of intravenous contrast according to the CT angiogram protocol Comparison is made to the prior CTA dated 03/01/2024 Findings: There are mild stenoses of the distal common carotid arteries bilaterally with approximately 30% diameter narrowing. There is mild plaque in the right carotid bulb, without stenosis. There is a new patent stent within the left carotid bulb and proximal left internal carotid artery. There is some deformity of the proximal end of the stent that may be due to mass-effect from adjacent calcified plaque. There is an approximately 50% diameter stenosis of the proximal left external carotid artery. There is a mild stenosis of the proximal right external carotid artery The vertebral arteries are patent bilaterally with no significant stenosis seen. The visualized thoracic aorta appears unremarkable There is multilevel degenerative disc disease and osteoarthritis of the cervical spine. Impression: 1. New patent stent in the left carotid bulb and proximal left ICA. There is some deformity of the proximal end of the stent that may be due to adjacent calcified plaque. Correlation with ultrasound could be considered to determine whether this is hemodynamically significant 2. Mild stenoses of the distal CCA bilaterally 3. Mild stenoses of the proximal ECA bilaterally Electronically signed by Ryan Eric 05-14-2024 6:41 PM
[2024-05-14] MEDS ORDERED: PANTOPRAZOLE BOLUS/DRIP IV STA (18:52)
--- NOTE | 2024-05-14 19:03 | XRay Report ---
EXAM: XR chest 1V portable CLINICAL HISTORY: Chest pain, nonspecific TECHNIQUE: An X-ray image of the chest is obtained in AP projection. COMPARISON: Last study on 04/08/2024. FINDINGS: Pulmonary Parenchyma: Prominent bronchovascular markings both lungs. No evidence of consolidation, collapse, or focal opacities. No pulmonary nodules are identified. No evidence of pleural effusion or pleural thickening. Heart and Mediastinum: Prominent central pulmonary vessels. Mildly enlrged cardiac size. Prominent aortic arch. Heart size and shape are normal. No mediastinal widening or masses. No hilar or mediastinal lymphadenopathy. Bony Thorax: Bony thorax appears intact without fractures or deformities. Soft Tissues: Soft tissues overlying the chest wall are unremarkable. Chest leads are noted. Bilateral mild acromioclavicular osteoarthritis. IMPRESSION: 1. Prominent bronchovascular markings both lungs and prominent central pulmonary vessels, likely related to pulmonary congestion. Clinical correlation is advised (stable) 2. Mildly enlarged cardiac size with prominent aortic arch. (stable) Electronically signed by Dom Aguilar 05-14-2024 7:03 PM
[2024-05-14 19:19] LABS: Iron 15 mcg/dl (35-175); Total Iron Binding Cap Calc 480 mcg/dl (250-450); Transferrin 343 mg/dl (200-360); Transferrin (FE) Percent Satur 3 % (20-50)
[2024-05-14 19:39] LABS: Ferritin 13.5 ng/ml (8-388); Reticulocyte % 6.73 % (0.50-2.00); Reticulocytes # 0.15 10^6/uL (0.020-0.100)
[2024-05-14] MEDS: PANTOprazole 80 MG in DEXTROSE 5% 100 ML IV ONE (20:15)
[2024-05-14] MEDS: PANTOprazole 40 MG in DEXTROSE 5% MINI-B 100 ML IV SCH (20:39)
--- NOTE | 2024-05-14 21:06 | CT Scan Report ---
EXAM: CT abd pelvis wo con CLINICAL HISTORY: LUQ/epigastric pain, severe anemia TECHNIQUE: Non-contrast CT of the abdomen and pelvis was performed, with the following protocol: axial images, and reconstructed coronal and sagittal images. One of the following dose reduction techniques was utilized for this exam: Automated exposure control, adjustment of the mA and/or kV according to patient size, and use of iterative reconstruction. COMPARISON: 04/22/2023 FINDINGS: Abdomen: Liver: Normal in size, shape, and density. No focal lesions, cysts, or masses were identified. Gallbladder and Biliary System: The gallbladder is normal in size and shape. No wall thickening, pericholecystic fluid, or gallstones were identified. Pancreas: Pancreatic head, body, and tail are visualized and appear normal in size and density. No pancreatic masses or calcifications were noted. Spleen: Stable markedly enlarged spleen measuring 17.8 cm. No splenic lesions or masses were identified. Appendix: The appendix is normal in size without nathanael appendiceal fat stranding, and without an appendicolith. No evidence of appendiceal abscess or perforation. Kidneys and Adrenal Glands: Both kidneys are normal in size, shape, and position. Cortical thickness is within normal limits. No renal calculi or hydronephrosis. Stable bilateral perinephric strandings for correlation with clinical data. Adrenal glands are unremarkable. Abdominal Aorta and Vessels: The abdominal aorta and major branches are patent without evidence of an aneurysm. Unchanged extensive atherosclerosis involving the aorta and its main branches Pelvis: Urinary Bladder: Total resolution of the previously seen diffuse wall thickening likely representing cystitis. Contrast is noted at the urinary bladder and both pelvicalyceal systems as well as both ureters likely from previous contrast study. Prostate: Normal in size and contour. No masses or abnormal thickening. Seminal Vesicles: Normal appearance without abnormal enlargement or mass. Peritoneal and Retroperitoneal Structures: No free fluid or abnormal fluid collections were identified within the abdomen or pelvis. No lymphadenopathy was noted. Bowel: The visualized bowel loops are normal in caliber and appearance. No evidence of bowel obstruction or wall thickening. Bones and Soft Tissues: Pelvic bones and soft tissues are unremarkable. No fractures or abnormal masses were identified. Stable spondylodegenerative changes of the lumbar spine. Stable internal fixation of L5 and S1 with rods and screws with minimal anterolisthesis of L5 over S1. Scanned lung bases show multiple bilateral fibroatelectatic bands (unchanged). IMPRESSION: No evidence of acute intra-abdominal pathology. Stationary course. Electronically signed by Dom Aguilar 05-14-2024 9:05 PM
[2024-05-14] MEDS ORDERED: ONDANSETRON INJ 2 MG/ML 2 ML VIAL IV PRN (21:31)
[2024-05-14] MEDS: CARBIDOPA/LEVODOPA 25/100MG TAB PO SCH (22:19)
[2024-05-14] MEDS: busPIRone 7.5 MG TAB PO SCH (22:19)
[2024-05-14] MEDS: FLUTICASONE/VILANTEROL 200/25MCG 14 PUFFS/INHALER INH SCH (22:24)
[2024-05-14] MEDS: HYDROXYUREA 500 MG CAP PO SCH (23:14)
[2024-05-15 02:29] LABS: BUN Creatinine Ratio 16.1 (10-20); Calcium 8.5 mg/dl (8.6-10.3); Creatinine Clr Calc Pharmacy 69.6 ml/min; Magnesium 1.7 mg/dl (1.7-2.4); Potassium 3.8 mmol/L (3.5-5.1)
[2024-05-15 02:33] LABS: Hematocrit (blood only) 24.3 % (42.0-52.0); Hemoglobin 7.3 g/dl (14.0-18.0); Mean Corpuscular Hemoglobin 26.2 pg (25.0-34.0); Mean Corpuscular Volume 87.1 fL (80.0-100.0); Mean Platelet Volume 10.1 fL (9.4-12.4); Nucleated RBC # (auto) 0.05 K/uL (0.00-0.12); Nucleated RBC % (auto) 0.9 %; Platelet Count 325 K/uL (130-400); RDW Coefficient of Variation 18.3 % (11.5-14.5); RDW Standard Deviation 57.9 fL (36.4-46.3); Red Blood Count 2.79 M/uL (4.70-6.10); White Blood Count 5.29 K/ul (4.8-10.8)
[2024-05-15] MEDS: ALBUTEROL HFA 8 GM INHALER INH PRN (05:34)
--- NOTE | 2024-05-15 08:18 | Hospitalist Progress Note ---
Date of Service May 15, 2024 Assessment & Plan (1) Symptomatic anemia: (2) Upper abdominal pain: (3) Iron deficiency anemia: (4) H/O transcarotid artery revascularization (TCAR): (5) History of esophagitis: (6) Lewy body dementia: (7) Paroxysmal atrial fibrillation: (8) BPH (benign prostatic hyperplasia): (9) Chronic hypoxic respiratory failure, on home oxygen therapy: (10) Acute encephalopathy: (11) Splenomegaly: (12) Thrombocytosis: (13) Fecal occult blood test positive: Plan 78yo male with b/l BKA, recent left TCAR on 05/01/[address] Murray, Lewy-body dementia, COPD, chronic hypoxic respiratory failure on home O2 - 2 liters continuously, paroxysmal a.fib on Eliquis, chronic thrombocytosis on hydroxyurea, history of stroke, history of sigmoid resection, & BPH presenting with symptomatic anemia, increased confusion, chest/upper abdominal discomfort, and dyspnea. Upon ER presentation was markedly anemic with hemoglobin 6.1 and trace heme positive stool. Iron studies are consistent with severe iron deficiency. He has been taking aspirin, plavix, and Eliquis since his TCAR surgery on 05/01/24. #symptomatic normocytic anemia w/ +hemoccult * s/p 2 units PRBCs in ER: 7.2 -> 7.8 * Colonoscopy 05/16/24 AM, NPO except for sips with meds * Holding Eliquis * Continuing Aspirin and Plavix due to recent L TCAR procedure risk of carotid stent thrombosis * Consider IV venofer while inpatient * CBC AM * GI on board, appreciate recs #Abdominal pain - * Epigastric region and left upper quadrant rather than the chest itself, additionally notes pain in LUQ and LLQ * Differential includes esophagitis, gastritis, PUD, splenomegaly-related pain, colon mass * Troponin negative, EKG NSR w/o ischemic changes * he has CAD risk factors but does not have a personal history of such * continue IV Protonix * Colonoscopy 05/16/24 AM #iron deficiency - * Fe studies very c/w such * presumed GI bleeding as noted above * consider IV venofer while here * s/p 2U pRBC: hgb 7.2 -> 7.8 #recent left TCAR - * Aspirin/plavix must be continued to prevent carotid stent thrombosis * operative site wnl * CTA neck 05/14/24: patent stent in the left carotid bulb and proximal left ICA. There is some deformity of the proximal end of the stent that may be due to adjacent calcified plaque. - Consider US doppler to determine whether this is hemodynamically significant * no hematoma or signs of bleeding in this area #Weakness - above plan addressing anemia and abd pain - discuss PT/OT after colonoscopy #paroxysmal a.fib - * hold Eliquis due to concern for GI bleeding * he is not on rate-controlling agents #chronic hypoxic resp failure on home O2 - * stable on 2 liters NC O2 * recent shortness of breath likely from severe acute anemia rather than COPD * chest x-ray w/o pneumonia * does not examine in CHF * cont inhalers for COPD #acute encephalopathy - * suspect post-operative delirium in the setting of dementia * exacerbated by the surgery itself, the hospital stay for the surgery (was in ICU for 24 hours), anemia, etc. 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 I agree with the impression and plan in the resident documentation, and as summarized below. 78 y/o male S/P TCAR 05/01/24 admitted yesterday with fatigue, weakness, poor appetite, nausea, upper abdominal pain, chest wall pain, shortness of breath, & confusion beyond his baseline dementia. Found to be anemic. At home, on Eliquis for PAF, now on BILLY for recent TCAR. Eliquis on hold since admission. Upon exam today, he is having some epigastric pain. Improves a little with increasing head of bed. EXAM 129/80, 71, 20 Non toxic. A/O. CV regular Lungs CTA DATA Labs HgB 6.1 > 7.2 BMP WNL EKG completed today upon rounds non acute. IMPRESSION & PLAN Acute Blood Loss Anemia GI Bleed S/p TCAR PAF, now in SR Systematic Anticoagulation, on hold due to acute blood loss anemia Appreciate GI consult Protonix IV Hold Eliquis Continue BILLY given recent TCAR Monitor H/H Endoscopy tomorrow Additional per resident documentation Subjective Addison was seen and evaluated at bedside this AM, appearing in mild distress. Endorses having some epigastric as well as left-sided abdominal pain that comes and goes, at worst it's a 9/10. Notes he is a bit constipated, had a few small hard bowel movements today. States BMs are typically softer. States he started feeling the abdominal pain yesterday 05/14 in the morning upon waking, unsure of any particular trigger. Notes slight L neck pain at TCAR incision site, especially when tilting head back but otherwise doesn't bother him much. Endorses feeling weaker than usual starting 1-2 weeks ago with decreased fluid and food intake. Endorses his lives at home with him and she typically helps him out with everything, denies anyone else is at home to help. Denies recent fever, body aches, chills, abdominal trauma, SOB, chest pain. Physical Exam Physical Exam: Gen: A&Ox3, appearing in mild distress, nontoxic in appearance HEENT: horizontal erythematous scar just superior to L clavicle, tenderness to palpation of medial aspect of scar, no significant swelling, warmth, or CV: RRR, soft heart sounds +s1/s2, no m/r/g heard Resp: clear to auscultation b/l, decreased breath sounds globally likely secondary to body habitus and general weakness, no wheeze/rales/rhonchi GI/Abd: +BS, tenderness to palpation LE: BKA b/l, nontender to palpation, no erythema seen Results & Data Results & Data Vital Signs (Past 12 Hours) Vital Signs Temp Pulse Pulse Resp BP BP Pulse Ox 05/15/24 07:40 36.6 C 73 18 123/66 98 05/15/24 07:24 64 05/15/24 05:34 69 18 100 05/15/24 03:10 36.9 C 68 20 116/62 99 05/15/24 00:04 36.5 C 71 20 114/62 99 05/14/24 23:43 36.4 C L 67 19 115/51 L 99 05/14/24 23:10 65 05/14/24 22:56 36.5 C 65 18 119/74 100 05/14/24 22:43 36.5 C 66 20 119/74 98 05/14/24 22:13 36.3 C L 71 19 114/59 L 99 05/14/24 21:58 36.4 C L 67 19 114/72 95 05/14/24 21:42 36.5 C 65 18 111/62 100 05/14/24 21:31 05/14/24 21:31 05/14/24 21:22 62 05/14/24 20:46 100 05/14/24 20:35 36.7 C 65 21 106/80 100 Pulse Ox O2 Del Method O2 Del Method O2 Flow Rate O2 Flow Rate 05/15/24 07:40 Nasal Cannula 3 05/15/24 07:24 05/15/24 05:34 Nasal Cannula 3 05/15/24 03:10 Nasal Cannula 05/15/24 00:04 2 05/14/24 23:43 2 05/14/24 23:10 05/14/24 22:56 Nasal Cannula 05/14/24 22:43 2 05/14/24 22:13 2 05/14/24 21:58 2 05/14/24 21:42 3 05/14/24 21:31 99 Nasal Cannula 3 05/14/24 21:31 Nasal Cannula 3 05/14/24 21:22 05/14/24 20:46 Nasal Cannula 3 05/14/24 20:35 3 Resident Activity Tracking Resident Involvement: Resident Care Provided Care Provided: Adult Hospital Medicine
[2024-05-15 08:30] LABS: Hematocrit (blood only) 23.5 % (42.0-52.0); Hemoglobin 7.2 g/dl (14.0-18.0)
[2024-05-15] MEDS: SERTRALINE HCL 100 MG TABLET PO SCH (09:42)
[2024-05-15] MEDS: UMECLIDINIUM BROMIDE 62.5MCG/BLISTER 7 PUFFS/INHALER INH SCH (09:42)
[2024-05-15] MEDS: buPROPion XL 300 MG TABCR PO SCH (09:43)
[2024-05-15] MEDS: MONTELUKAST SODIUM 10 MG TABLET PO SCH (09:43)
[2024-05-15] MEDS: CLOPIDOGREL BISULFATE 75 MG TAB PO SCH (09:44)
[2024-05-15] MEDS: ASPIRIN 81 MG ECTAB PO SCH (09:44)
--- NOTE | 2024-05-15 11:31 | Electrocardiogram Report ---
Test Reason : Blood Pressure : */* mmHG Vent. Rate : 68 BPM Atrial Rate : 68 BPM P-R Int : 188 ms QRS Dur : 80 ms QT Int : 404 ms P-R-T Axes : * 42 100 degrees QTcB Int : 429 ms Sinus rhythm with Premature atrial complexes Nonspecific ST and T wave abnormality Abnormal ECG When compared with ECG of 08-Apr-2024 13:25, Premature atrial complexes are now Present Confirmed by Edgar Rodriguez ([id number]) on 05/15/2024 11:30:50 AM Referred By: [facility] Confirmed By: Edgar Rodriguez
--- NOTE | 2024-05-15 11:40 | Gastrointestinal Consultation ---
<Statement entered by Toño De Leon MD - 05/15/24 16:50> I have reviewed the history, physical exam, lab and imaging findings as dictated by the mid-level provider, made any necessary modifications, and agree with the stated assessment and recommendations. A total of 40 minutes was spent in the review, direct observation, decision making and discussion of this case with the patient/family and other providers. Toño De Leon MD Date of Consultation May 15, 2024 Assessment & Plan (1) Iron deficiency anemia: -Continue IV Protonix gtt -Continue to monitor H/H -Clear liquid diet today. Keep NPO after midnight. Bowel preparation ordered for EGD & colonoscopy on 05/16/24. -Patient's Eliquis is currently held. He does have to continue his Aspirin & Plavix without interruption given recent TCAR. History of Present Illness Reason for Consultation: "suspected GI bleeding" Attending Physician: Luther Carmichael DO History of Present Illness Patient is a 78 yo male with recent TCAR procedure with Dr. Murray. He is on Aspirin, Plavix, & Eliquis. PMH includes Lewy-Body Dementia, COPD, chronic hypoxic respiratory failure on home O2 (2 L around the clock), chronic thrombocytosis, & BPH. He presented to the ED due to fatigue, weakness, poor appetite, nausea, upper abdominal pain, chest wall pain, shortness of breath, & confusion beyond his baseline dementia. 2 days ago, he began reporting shortness of breath and chest discomfort. His hemoglobin on presentation was noted to be 6.1. In March 2024, his hemoglobin was 15.4. He was reportedly "trace heme +" in the ED. He denies overt GI bleeding. He denies any current symptoms at the time of my evaluation. He is not clear on when he last had a colonoscopy or if he's had an EGD in the past. He is currently on Aspirin & Plavix, but Eliquis has been held. CT abdomen/pelvis unremarkable. Allergies Allergy/AdvReac Type Severity Reaction Status Date / Time ibuprofen Allergy Intermediate HIVES Verified 05/14/24 18:11 Home Medications Medication Instructions Recorded Confirmed Type acetaminophen 325 mg tablet 650 mg PO Q4 PRN PAIN/FEVER 06/22/22 05/14/24 History (Tylenol) albuterol sulfate 90 mcg/actuation 2 puff inhalation QID PRN 06/22/22 05/14/24 History aerosol inhaler Shortness Of Breath Or Wheezing apixaban 5 mg tablet (Eliquis) 5 mg PO AMHS 06/22/22 05/14/24 History bupropion HCl 300 mg 24 hr tablet, 300 mg PO QAM 06/22/22 05/14/24 History extended release cyclobenzaprine 10 mg tablet 10 mg PO AMHS PRN MUSCLE SPASMS 06/22/22 05/14/24 History finasteride 5 mg tablet 5 mg PO DAILY 06/22/22 05/14/24 History montelukast 10 mg tablet 10 mg PO DAILY 06/22/22 05/14/24 History prazosin 5 mg capsule 5 mg PO HS 06/22/22 05/14/24 History sertraline 100 mg tablet 200 mg PO DAILY 06/22/22 05/14/24 History tiotropium bromide 18 mcg capsule 1 cap inhalation QAM 06/22/22 05/14/24 History with inhalation device (Spiriva with HandiHaler) trazodone 150 mg tablet 150 mg PO HS 06/22/22 05/14/24 History folic acid 1 mg tablet 1 mg PO QAM #0 tabs 06/27/22 05/14/24 Rx carbidopa 25 mg-levodopa 100 mg 2 tab PO TID 04/04/24 05/14/24 History disintegrating tablet clopidogrel 75 mg tablet (Plavix) 75 mg PO QAM 04/04/24 05/14/24 History hydroxyurea 500 mg capsule See Rx Instructions .Route .COMPLEX 04/04/24 05/14/24 History aspirin 81 mg capsule 81 mg PO DAILY 05/01/24 05/14/24 History atorvastatin 40 mg tablet 20 mg PO HS 05/14/24 05/14/24 History buspirone 5 mg tablet 7.5 mg PO TID 05/14/24 05/14/24 History cholecalciferol (vitamin D3) 25 50 mcg PO DAILY 05/14/24 05/14/24 History mcg (1,000 unit) capsule (Vitamin D3) diclofenac sodium 1 % topical gel 2 g topical QID PRN JOINT PAIN 05/14/24 05/14/24 History fluticasone 250 mcg-salmeterol 50 1 inh inhalation BID 05/14/24 05/14/24 History mcg/dose blistr powdr for inhalation guaifenesin 600 mg tablet, 600 mg PO BID PRN CONGESTION/COUGH 05/14/24 05/14/24 History extended release 12 hr (Mucinex) miconazole nitrate 2 % topical 1 applic topical BID PRN FUNGAL 05/14/24 05/14/24 History powder INFECTION spironolactone 25 mg tablet 25 mg PO DAILY 05/14/24 05/14/24 History Patient History Medical History CKD (chronic kidney disease) (HFpEF) heart failure with preserved ejection fraction Obesity GERD (gastroesophageal reflux disease) Hyperlipidemia On home oxygen therapy 2 LPM Wheelchair dependent s/p B/L BKA Parkinson disease History of pneumonia Feb 29, [address] [facility], resolved per pt's History of stroke 03/01/[address] [facility] while in hospital, was mild per pt's , had facial drooping which has resolved Hx MRSA infection negative nasal swab on 06/24/15 and 10/05/18 PTSD (post-traumatic stress disorder) do not wake patient by touching, wake patient by saying name BPH (benign prostatic hyperplasia) Asthma well controlled per pt's Hx of sepsis 2019 VIK (obstructive sleep apnea) non compliant with cpap History of cardioversion Paroxysmal atrial fibrillation dx approx 2020 > Eliquis > no pacer > [facility] ; per 12/07/23 Cardio note, 'Afib with slow VR' Atrial tachycardia controlled per pt's ; per chart review, not mentioned in Cardio note HTN (hypertension) PAD (peripheral artery disease) COPD (chronic obstructive pulmonary disease) controlled per pt's Hx: UTI (urinary tract infection) none at present History of COVID-19 05/2022 Hx of Clostridium difficile infection 2011 Hx of sigmoidoscopy History of kidney stones passed on own Anemia follows with heme/onc Lewy body dementia Diverticular disease Surgical History History of tooth extraction History of colonoscopy History of back surgery L5-S1 Hx of hernia repair History of colon resection no colostomy > due to C diff 2012 S/P bilateral BKA (below knee amputation) right 2019, left 2020 > prosthetic bilat Status post ORIF of fracture of ankle 05/26/[address] Farhan DIEZ with sedation. Family History Mother Colorectal cancer Father PAD (peripheral artery disease) Denies family history of Coronary heart disease Social History Smoking Status: Former smoker Tobacco Type: Smokeless Tobacco (Dip or Chew) Smoking End Date: smoked cigarettes briefly in early adult years; Second Hand Exposure: No; Do You Dip or Chew Tobacco: No (quit approx 3 yrs ago); Hx Alcohol Use: No Hx Substance Use: No Preferred Language: Macedonian Communication Ability: Effective Communication Ability Comment: PT CONFUSED Broadcast Chief Engineer Required: No Beliefs That Will Affect Care: None marital status: Current Living Situation: Spouse Current Living Situation Comment: with and grandson current occupational status: 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; 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 also in the [employer] during How many Children do You have: 2 Other Information That Helps Us Care for You: No Feels Safe at Home: Yes Safety Concerns: Feels Safe At This Time Assistive Devices: CPAP, Denture - Upper, Oxygen - Continuous, Prosthesis and Wheelchair Review of Systems Gastrointestinal: + nausea; no hematemesis, no blood in st ools and no melena Physical Exam Constitutional: well developed Respiratory: normal respiratory effort Gastrointestinal (Abdomen): normal bowel sounds, soft, nontender, no hepatosplenomegaly Psychiatric: Orientation: alert and oriented x 3 Results & Data Vital Signs (Past 12 Hours) Vital Signs Temp Pulse Pulse Resp BP BP Pulse Ox 05/15/24 10:59 05/15/24 07:40 36.6 C 73 18 123/66 98 05/15/24 07:24 64 05/15/24 05:34 69 18 100 05/15/24 03:10 36.9 C 68 20 116/62 99 05/15/24 00:04 36.5 C 71 20 114/62 99 05/14/24 23:43 36.4 C L 67 19 115/51 L 99 O2 Del Method O2 Flow Rate 05/15/24 10:59 Room Air 05/15/24 07:40 Nasal Cannula 3 05/15/24 07:24 05/15/24 05:34 Nasal Cannula 3 05/15/24 03:10 Nasal Cannula 05/15/24 00:04 2 05/14/24 23:43 2 PG Care Time/CCT Total # of Minutes Spent Total Time Spent with Patient: Total time spent is greater than 50% in coordination of care (as documented) at patient's floor/unit and/or counseling patient: Coding Level of Care Code 32799 INT INP/OBS CARE 3/75MIN Diagnoses Iron deficiency anemia D50.9
[2024-05-15 16:38] LABS: Hematocrit (blood only) 25.6 % (42.0-52.0); Hemoglobin 7.8 g/dl (14.0-18.0)
[2024-05-15] MEDS: LAVAGE SOLUTION 4000ML PO SCH (18:07)
--- NOTE | 2024-05-15 18:10 | Electrocardiogram Report ---
Test Reason : Blood Pressure : */* mmHG Vent. Rate : 72 BPM Atrial Rate : 72 BPM P-R Int : 192 ms QRS Dur : 86 ms QT Int : 414 ms P-R-T Axes : 18 15 42 degrees QTcB Int : 453 ms Normal sinus rhythm with sinus arrhythmia Normal ECG When compared with ECG of 14-May-2024 16:48, Premature atrial complexes are no longer Present Confirmed by Edgar Rodriguez ([id number]) on 05/15/2024 6:10:36 PM Referred By: [facility] Confirmed By: Edgar Rodriguez
[2024-05-16 06:31] LABS: Hematocrit (blood only) 25.2 % (42.0-52.0); Hemoglobin 7.8 g/dl (14.0-18.0); Mean Corpuscular Hemoglobin 26.5 pg (25.0-34.0); Mean Corpuscular Volume 85.7 fL (80.0-100.0); Mean Platelet Volume 10.2 fL (9.4-12.4); Nucleated RBC # (auto) 0.04 K/uL (0.00-0.12); Nucleated RBC % (auto) 0.8 %; Platelet Count 306 K/uL (130-400); RDW Coefficient of Variation 17.7 % (11.5-14.5); RDW Standard Deviation 55.5 fL (36.4-46.3); Red Blood Count 2.94 M/uL (4.70-6.10)
[2024-05-16 07:36] LABS: BUN Creatinine Ratio 18.2 (10-20); Calcium 8.5 mg/dl (8.6-10.3); Potassium 3.4 mmol/L (3.5-5.1)
--- NOTE | 2024-05-16 09:03 | History & Physical Bridge Note ---
Date of Service May 16, 2024 History & Physical Bridge Note I have examined the patient, reviewed the History & Physical and in the interval since the performance of the History & Physical I have noted the following changes of clinical significance: no changes noted. Patient continues to have brown bowel movements, however they are liquid. He has finished 3/4 of the bowel prep. Discussed with Dr. De Leon and Endoscopy campaign marketing manager. Discussed with RN that patient can continue to drink his prep until 10 AM and then must be strictly NPO in order to have his EGD & colonoscopy this afternoon.
--- NOTE | 2024-05-16 13:35 | Anesthesiology Consultation ---
Date of Service May 16, 2024 Assessment & Plan Chart Review Chart Review: Acceptable Risk for Surgery and Patient NOT seen in Pre Admission Testing Consults Requested none ASA ASA4 Proposed Anesthesia Anesthesia Type: MAC Risk / Benefits Reviewed With: PT / POA / Parent / Guardian, Accepts Plan and Informed Consent Obtained History Surgery Operation Date: 05/16/24 16:30 Proposed Procedures p Colonoscopy EGD Dr. De Leon - Toño De Leon MD Height/Weight Height: 5 ft 4 in Weight: 84.4 kg Allergies Allergy/AdvReac Type Severity Reaction Status Date / Time ibuprofen Allergy Intermediate HIVES Verified 05/14/24 18:11 Medications Home Medications Medication Instructions Recorded Confirmed Last Taken acetaminophen 325 mg tablet 650 mg PO Q4 PRN PAIN/FEVER 06/22/22 05/14/24 1 Month Ago (Tylenol) ~04/03/24 albuterol sulfate 90 mcg/actuation 2 puff inhalation QID PRN 06/22/22 05/14/24 05/01/24 09:30 aerosol inhaler Shortness Of Breath Or Wheezing apixaban 5 mg tablet (Eliquis) 5 mg PO AMHS 06/22/22 05/14/24 05/14/24 08:00 bupropion HCl 300 mg 24 hr tablet, 300 mg PO QAM 06/22/22 05/14/24 05/14/24 extended release cyclobenzaprine 10 mg tablet 10 mg PO AMHS PRN MUSCLE SPASMS 06/22/22 05/14/24 04/30/24 19:00 finasteride 5 mg tablet 5 mg PO DAILY 06/22/22 05/14/24 05/14/24 montelukast 10 mg tablet 10 mg PO DAILY 06/22/22 05/14/24 05/13/24 prazosin 5 mg capsule 5 mg PO HS 06/22/22 05/14/24 05/13/24 sertraline 100 mg tablet 200 mg PO DAILY 06/22/22 05/14/24 05/14/24 tiotropium bromide 18 mcg capsule 1 cap inhalation QAM 06/22/22 05/14/24 05/14/24 with inhalation device (Spiriva with HandiHaler) trazodone 150 mg tablet 150 mg PO HS 06/22/22 05/14/24 05/13/24 folic acid 1 mg tablet 1 mg PO QAM #0 tabs 06/27/22 05/14/24 05/14/24 carbidopa 25 mg-levodopa 100 mg 2 tab PO TID 04/04/24 05/14/24 05/14/24 08:00 disintegrating tablet clopidogrel 75 mg tablet (Plavix) 75 mg PO QAM 04/04/24 05/14/24 05/14/24 hydroxyurea 500 mg capsule See Rx Instructions .Route .COMPLEX 04/04/24 05/14/24 05/14/24 08:00 aspirin 81 mg capsule 81 mg PO DAILY 05/01/24 05/14/24 05/14/24 atorvastatin 40 mg tablet 20 mg PO HS 05/14/24 05/14/24 05/13/24 buspirone 5 mg tablet 7.5 mg PO TID 05/14/24 05/14/24 05/14/24 08:00 cholecalciferol (vitamin D3) 25 50 mcg PO DAILY 05/14/24 05/14/24 05/14/24 mcg (1,000 unit) capsule (Vitamin D3) diclofenac sodium 1 % topical gel 2 g topical QID PRN JOINT PAIN 05/14/24 05/14/24 Unknown fluticasone 250 mcg-salmeterol 50 1 inh inhalation BID 05/14/24 05/14/24 05/14/24 08:00 mcg/dose blistr powdr for inhalation guaifenesin 600 mg tablet, 600 mg PO BID PRN CONGESTION/COUGH 05/14/24 05/14/24 Unknown extended release 12 hr (Mucinex) miconazole nitrate 2 % topical 1 applic topical BID PRN FUNGAL 05/14/24 05/14/24 Unknown powder INFECTION spironolactone 25 mg tablet 25 mg PO DAILY 05/14/24 05/14/24 05/14/24 Active Medications Generic Name Dose Route Start Last Admin Trade Name Freq PRN Reason Stop Dose Admin Albuterol 2 puffs 05/14/24 21:31 05/15/24 05:34 Albuterol Hfa 8 Gm Inhaler INH 06/13/24 21:30 2 puffs QID PRN Administration Shortness Of Breath Or Wheezing Aspirin 81 mg 05/15/24 09:00 05/16/24 08:41 Aspirin 81 Mg Ectab PO 06/14/24 08:59 81 mg DAILY MARIBETH Administration Bupropion HCl 300 mg 05/15/24 09:00 05/16/24 08:42 Bupropion Xl 300 Mg Tabcr PO 06/14/24 08:59 300 mg QAM MARIBETH Administration Buspirone HCl 7.5 mg 05/14/24 21:31 05/16/24 08:41 Buspirone 7.5 Mg Tab PO 06/13/24 21:30 7.5 mg TID MARIBETH Administration Carbidopa/Levodopa 2 tab 05/14/24 21:31 05/16/24 08:42 Carbidopa/Levodopa 25/100mg Tab PO 06/13/24 21:30 2 tab TID MARIBETH Administration Clopidogrel Bisulfate 75 mg 05/15/24 09:00 05/16/24 08:42 Clopidogrel Bisulfate 75 Mg Tab PO 06/14/24 08:59 75 mg QAM MARIBETH Administration Fluticasone/Vilanterol 1 puffs 05/14/24 22:00 05/15/24 19:56 Fluticasone/Vilanterol 200/25mcg 14 Puffs/Inhaler INH 06/13/24 21:59 1 puffs HS MARIBETH Administration Hydroxyurea 1,000 mg 05/14/24 22:30 05/16/24 08:41 Hydroxyurea 500 Mg Cap PO 06/13/24 22:29 1,000 mg [id number]@0900,2100 MARIBETH Administration Pantoprazole Sodium 40 mg/ 100 mls @ 20 mls/hr 05/14/24 19:15 05/16/24 11:31 Dextrose IV 06/13/24 19:14 8 mg/hr Q5H MARIBETH 20 mls/hr Administration 8 MG/HR Montelukast Sodium 10 mg 05/15/24 09:00 05/16/24 08:41 Montelukast Sodium 10 Mg Tablet PO 06/14/24 08:59 10 mg DAILY MARIBETH Administration Sertraline HCl 200 mg 05/15/24 09:00 05/16/24 08:42 Sertraline Hcl 100 Mg Tablet PO 06/14/24 08:59 200 mg DAILY MARIBETH Administration Umeclidinium [place] 1 puffs 05/15/24 09:00 05/16/24 08:40 Umeclidinium [place] 62.5mcg/Blister 7 Puffs/Inhaler INH 06/14/24 08:59 1 puffs QAM MARIBETH Administration NPO Date Last Intake of Fluids: 05/16/24 Time Last Intake of Fluids: 10:00 Date Last Intake of Solids: 05/13/24 Past Medical History Medical History CKD (chronic kidney disease) (HFpEF) heart failure with preserved ejection fraction Obesity GERD (gastroesophageal reflux disease) Hyperlipidemia On home oxygen therapy 2 LPM Wheelchair dependent s/p B/L BKA Parkinson disease History of pneumonia Feb 29, 2024 hospitalized at [facility], resolved per pt's History of stroke 03/01/2024 at [facility] while in hospital, was mild per pt's , had facial drooping which has resolved Hx MRSA infection negative nasal swab on 06/24/15 and 10/05/18 PTSD (post-traumatic stress disorder) do not wake patient by touching, wake patient by saying name BPH (benign prostatic hyperplasia) Asthma well controlled per pt's Hx of sepsis 2019 VIK (obstructive sleep apnea) non compliant with cpap History of cardioversion Paroxysmal atrial fibrillation dx approx 2020 > Eliquis > no pacer > [facility] ; per 12/07/23 Cardio note, 'Afib with slow VR' Atrial tachycardia controlled per pt's ; per chart review, not mentioned in Cardio note HTN (hypertension) PAD (peripheral artery disease) COPD (chronic obstructive pulmonary disease) controlled per pt's Hx: UTI (urinary tract infection) none at present History of COVID-19 05/2022 Hx of Clostridium difficile infection 2011 Hx of sigmoidoscopy History of kidney stones passed on own Anemia follows with heme/onc Lewy body dementia Diverticular disease Exercise / Class Metabolic Activity III < 4 Walking/Shop/Light housework wheelchair bound 2ndary to bilateral BKA Past Family History Family History Mother Colorectal cancer Father PAD (peripheral artery disease) Denies family history of Coronary heart disease Past Surgical History Surgical History History of tooth extraction History of colonoscopy History of back surgery L5-S1 Hx of hernia repair History of colon resection no colostomy > due to C diff 2011 S/P bilateral BKA (below knee amputation) right 2019, left 2020 > prosthetic bilat Status post ORIF of fracture of ankle 05/26/[address] Farhan DIEZ with sedation. Past Anesthesia History No Hx of Anesthesia Complications and No Family Hx of Anesthesia Complications History of PONV No Hx of PONV and No Hx of Motion Sickness Social History Smoking Status: Former smoker tobacco type: smokeless tobacco Do You Dip or Chew Tobacco: No (quit approx 3 yrs ago) Smoking End Date: smoked cigarettes briefly in early adult years Hx Alcohol Use: No Alcohol type: beer alcohol intake frequency: holidays/special occasions only Hx Substance Use: No substance use type: does not use Physical Exam Vital Signs Last Vital Signs Temp 36.6 C 05/16/24 13:27 Pulse 73 05/16/24 13:27 Resp 18 05/16/24 13:27 BP 111/68 05/16/24 13:27 Pulse Ox 95 05/16/24 13:27 O2 Del Method Nasal Cannula 05/16/24 13:27 O2 Flow Rate 2 05/16/24 13:27 ENMT Mouth: + edentulous Thyromental Distance: > or= 3.5 Finger Breadths Mallampati Class: III Neck normal visual inspection Respiratory normal respiratory effort Auscultation: lungs clear to auscultation bilaterally Cardiovascular Rate/Rhythm: regular rate and regular rhythm Musculoskeletal Extremities: + amputation noted Psychiatric Orientation: alert Testing Laboratory Results 05/16/24 05:50 05/16/24 05:50 Blood Type O Positive 05/14/24 16:59 Antibody Screen NEGATIVE 05/14/24 16:59
[2024-05-16] MEDS: SODIUM CHLORIDE 0.9% 500 ML IV SCH (13:37)
--- NOTE | 2024-05-16 14:40 | Medical Student Progress Note ---
Date of Service May 16, 2024 Assessment & Plan (1) Symptomatic anemia: (2) Acute encephalopathy: (3) Iron deficiency anemia: (4) Bacterial conjunctivitis of both eyes: (5) Chronic hypoxic respiratory failure, on home oxygen therapy: (6) H/O transcarotid artery revascularization (TCAR): (7) Thrombocytosis: (8) Fecal occult blood test positive: (9) Paroxysmal atrial fibrillation: (10) Upper abdominal pain: (11) Weakness: Plan 78yo male with b/l BKA, recent left TCAR on 05/01/[address] Murray, Lewy-body dementia, COPD, chronic hypoxic respiratory failure on home O2 - 2 liters continuously, paroxysmal a.fib on Eliquis, chronic thrombocytosis on hydroxyurea, history of stroke, history of sigmoid resection, & BPH presenting with symptomatic anemia, increased confusion, chest/upper abdominal discomfort, and dyspnea. Upon ER presentation was markedly anemic with hemoglobin 6.1 and trace heme positive stool. Iron studies are consistent with severe iron deficiency. He has been taking aspirin, plavix, and Eliquis since his TCAR surgery on 05/01/24. #symptomatic normocytic anemia w/ +hemoccult * s/p 2 units PRBCs in ER, Hgb steady at 7.8 * Continuing Aspirin and Plavix due to recent L TCAR procedure risk of carotid stent thrombosis * GI on board, appreciate recs - post EGD/colonoscopy: - start oral PPI - restart Eliquis - recheck CBC in AM - restarted on full liquid diet, advance as tolerated - recommending capsule endoscopy as an outpatient #Abdominal pain - * Epigastric region and left upper quadrant rather than the chest itself, additionally notes pain in LUQ and LLQ * Differential includes esophagitis, gastritis, PUD, splenomegaly-related pain, colon mass * Troponin negative, EKG NSR w/o ischemic changes #iron deficiency - * Fe studies very c/w such * consider IV venofer while here * s/p 2U pRBC: hgb 7.8 -> 7.8 * No apparent bleeding seen on EGD or colonoscopy 05/16/24 #recent left TCAR - * Aspirin/plavix must be continued to prevent carotid stent thrombosis * operative site wnl * CTA neck 05/14/24: patent stent in the left carotid bulb and proximal left ICA. There is some deformity of the proximal end of the stent that may be due to adjacent calcified plaque.- Consider US doppler to determine whether this is hemodynamically significant * no hematoma or signs of bleeding in this area #Weakness - above plan addressing anemia and abd pain - discuss PT/OT as options #paroxysmal a.fib - * may resume Eliquis per GI post-colonoscopy/EGD with no apparent bleeding * he is not on rate-controlling agents #chronic hypoxic resp failure on home O2 - * stable on 2 liters NC O2 * recent shortness of breath likely from severe acute anemia rather than COPD * chest x-ray w/o pneumonia * does not examine in CHF * cont inhalers for COPD #acute encephalopathy - * suspect post-operative delirium in the setting of dementia * exacerbated by the surgery itself, the hospital stay for the surgery (was in ICU for 24 hours), anemia, etc. 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 I have personally performed the physical exam and decision making activities related to the patients care. I have reviewed and agree with the findings and plan as documented in the students note. Any exceptions or clarifications are listed here: 78 y/o male S/P TCAR 05/01/24 admitted two days ago with fatigue, weakness, poor appetite, nausea, upper abdominal pain, chest wall pain, shortness of breath, & confusion beyond his baseline dementia. Found to be anemic. At home, had been on Eliquis for PAF previously, and more recently on BILLY for recent TCAR. Eliquis on hold since admission. HgB stable post transfusion. Underwent EGG/colonsocopy today. Now with liquid diet post procedure in the room. EXAM VSS. No complaints at present. Non toxic. A/O. CV regular Lungs CTA ABD SNT DATA Labs HgB 6.1 > 7.2 > 7.8 > 7.8 IMPRESSION & PLAN Acute Blood Loss Anemia GI Bleed S/p TCAR PAF, now in SR Systematic Anticoagulation, on hold due to acute blood loss anemia Appreciate GI consult Change to PO Protonix Will discuss reumption of Eliquis for tomorrow Continue BILLY given recent TCAR Monitor H/H Subjective Patient was feeling worse today, and having episodes of intermitant abdominal pain. Endorses decreased neck pain around TCAR site. Denies dizziness, chest pain, blood in stool. Physical Exam Constitutional: a&o x 3. no acute distress. Neck: TCAR incision appears clean and dry, some tenderness to palpation at medial aspect of scar. No signs of infection. Respiratory: clear to ausculation b/l Cardiovascular: RRR, no m/r/g Gastrointestinal (Abdomen): soft, some tenderness to palpation epigastric region, LLQ and LUQ. Splenomegaly is not palpable. Results & Data Vital Signs (Past 12 Hours) Vital Signs Temp Pulse Pulse Resp BP Pulse Ox O2 Del Method 05/16/24 03:42 36.5 C 95 H 18 123/72 93 Nasal Cannula 05/15/24 23:14 68 05/15/24 23:12 36.6 C 72 18 130/68 97 Nasal Cannula 05/15/24 19:55 36.3 C L 71 20 116/61 98 Nasal Cannula 05/15/24 19:42 Nasal Cannula O2 Flow Rate 05/16/24 03:42 2 05/15/24 23:14 05/15/24 23:12 2 05/15/24 19:55 2 05/15/24 19:42 2
--- NOTE | 2024-05-16 15:25 | Anesthesiology Progress Note ---
Date of Service May 16, 2024 Anesthesia Post Procedure Vital Signs Vital Signs: Temp Pulse Pulse Resp BP Pulse Ox O2 Del Method 05/16/24 15:08 69 18 119/69 98 Oxymask 05/16/24 15:03 77 05/16/24 13:27 97.9 F 73 18 111/68 95 Nasal Cannula 05/16/24 11:39 97.7 F 80 19 124/84 91 Nasal Cannula 05/16/24 09:50 Nasal Cannula 05/16/24 09:02 97.5 F L 93 H 19 125/74 94 Nasal Cannula 05/16/24 07:44 69 05/16/24 03:42 97.7 F 95 H 18 123/72 93 Nasal Cannula 05/15/24 23:14 68 05/15/24 23:12 97.9 F 72 18 130/68 97 Nasal Cannula 05/15/24 19:55 97.3 F L 71 20 116/61 98 Nasal Cannula 05/15/24 19:42 Nasal Cannula 05/15/24 17:23 69 18 119/60 96 Nasal Cannula 05/15/24 16:11 72 O2 Flow Rate 05/16/24 15:08 5 05/16/24 15:03 05/16/24 13:27 2 05/16/24 11:39 2 05/16/24 09:50 2 05/16/24 09:02 2 05/16/24 07:44 05/16/24 03:42 2 05/15/24 23:14 05/15/24 23:12 2 05/15/24 19:55 2 05/15/24 19:42 2 05/15/24 17:23 3 05/15/24 16:11 Transfer of Care Handoff Completed per policy Notes Mental Status: alert / awake / arousable and participated in evaluation Patient Amnestic to Procedure: Yes Nausea / Vomiting: adequately controlled Pain: adequately controlled Airway Patency, RR, SpO2: stable & adequate BP & HR: stable & adequate Hydration State: stable & adequate Anesthetic Complications: no major complications apparent and Pt Satisfied with anesthetic care
[2024-05-16] MEDS: PROPOFOL IV EMULSION 10 MG/ML 20 ML VIAL IV ONE ×2 (16:28)
[2024-05-16] MEDS: LIDOCAINE 2% 2 ML VIAL/AMP(20MG/ML) INFIL ONE (16:28)
--- NOTE | 2024-05-16 16:43 | GI REPORT ---
[facility] Patient: EDWARD RAMIREZ : 1945 Sex at : Male Age: 78 Years Procedure: Colonoscopy Date: 05/16/2024 Attending Physician: Toño De Leon MD Referring MD: Luther Carmichael Indications: - Iron deficiency anemia;?melena on antihrombotic/antiplatelet agents; no recent exam Medications: - Monitored Anesthesia Care Complications: - No immediate complications. Estimated Blood Loss: - Estimated blood loss: None. Procedure: - The pediatric colonoscope was introduced through the anus and advanced to the cecum, identified by appendiceal orifice and ileocecal valve. - The colonoscopy was performed without difficulty. - The quality of the bowel preparation was fair. - The patient tolerated the procedure well. Findings: - The perianal examination was normal. - There was evidence of a prior end-to-side ileo-colonic anastomosis in the sigmoid colon at 20 cm. This was patent and was characterized by healthy appearing mucosa. The anastomosis was traversed. - The exam was otherwise without abnormality. There was dark green liquid and material scattered throughout; a few areas were not well visualized but there was no fresh red blood, large mass lesions, significant diverticulosis, angiodysplasias or other findings; the ileum could not be intubated due to prep, but no red blood was emanating from the ICV. Impression: - Preparation of the colon was fair. - Patent end-to-side ileo-colonic anastomosis, characterized by healthy appearing mucosa. - The examination was otherwise normal. There was dark green liquid and material scattered throughout; a few areas were not well visualized but there was no fresh red blood, large mass lesions, significant diverticulosis, angiodysplasias or other findings; the ileum could not be intubated due to prep, but no red blood was emanating from the ICV. Unclear if patient had recent significant GI bleed and basis of iron deficiency not entirely clear; prior bleed from small bowel or obscure site possible. - No specimens collected. Recommendation: - Await EGD pathology results. Resume all necessary antiplatelet/antithrombotic agents and observe for recurrent bleeding. Advance diet. Daily PPO while on ASA/Plavix. Avoid NSAIDs. Further evaluation (CT enterography and./or capsule study elsewhere) for significant recurrent bleed; CTA/IR for more rapid bleeding. Procedure Code(s): - 36676, Colonoscopy, flexible; diagnostic, including collection of specimen(s) by brushing or washing, when performed (separate procedure) Diagnosis Code(s): - D50.9, Iron deficiency anemia, unspecified - Z98.0, Intestinal bypass and anastomosis status CPT(R) - 2022 copyright [employer]. All Rights Reserved. The CPT codes, CCI edits and ICD codes generated are intended as suggestions and were generated based on input data. These codes are preliminary and upon parts counter associate review may be revised to meet current compliance and payer requirements. The provider is responsible for the final determination of appropriate codes, and modifiers. Toño De Leon MD This document has been electronically signed. Note Initiated:05/16/2024 Note Completed:05/16/2024 4:42 PM \\[email or web address]\[email or web address]\Data\Provation\Results\LIVE\[id number]
--- NOTE | 2024-05-16 16:44 | GI REPORT ---
[facility] Patient: EDWARD RAMIREZ : 1945 Sex at : Male Age: 78 Years Procedure: Upper GI endoscopy Date: 05/16/2024 Attending Physician: Toño De Leon MD Referring MD: Luther Carmichael Indications: - Iron deficiency anemia; ? melena on antiplatelet/antithrombotic agents; no recent exam Medications: - Monitored Anesthesia Care Complications: - No immediate complications. Estimated Blood Loss: - Estimated blood loss: None. Procedure: - The pediatric colonoscope was introduced through the mouth and advanced to the jejunum. - The upper GI endoscopy was accomplished without difficulty. - The patient tolerated the procedure well. Findings: - The examined jejunum was normal. - There was no endoscopic evidence of bleeding in the jejunum. - There was no endoscopic evidence of angiodysplasia or erosion in the jejunum. - The examined duodenum was normal. - There is no endoscopic evidence of bleeding, angiodysplasia or erosion in the duodenum. - The exam of the duodenum was otherwise normal. - Biopsies were taken with a cold forceps for histology. - Flecks of Hematin (altered blood/rxcqcd-zmlbbq-gqdo material)and/or red blood were found in the cardia; no active bleeding or underlying lesions with washing. - The exam of the stomach was otherwise normal. - Biopsies were taken with a cold forceps for histology. - A small hiatal hernia was present. - A few very shallow erosions/exudate were found in the lower third of the esophagus consistent with reflux/vomiting effect without suggestion of recent bleeding Impression: - Normal examined jejunum. - Normal examined duodenum. - Hematin (altered blood/qocmjb-efbrke-sbbs material)/red blood flecks in the cardia without active bleeding or underlying lesions. - Small hiatal hernia. - Few shallow erosions in the lower third of the esophagus, likely from reflux/emesis. No strong suspicion of significant upper GI bleeding; mild gastric friability; prior UGI bleed on anticoagulant possible but uncertain. Recommendation: - Await pathology results. - Colonoscopy today. - Use Prilosec (omeprazole) 20 mg PO daily if on ASA/Plavix. Procedure Code(s): - 62143, Esophagogastroduodenoscopy, flexible, transoral; with biopsy, single or multiple Diagnosis Code(s): - D50.9, Iron deficiency anemia, unspecified - K92.2, Gastrointestinal hemorrhage, unspecified - K44.9, Diaphragmatic hernia without obstruction or gangrene - K22.10, Ulcer of esophagus without bleeding CPT(R) - 202 copyright [employer]. All Rights Reserved. The CPT codes, CCI edits and ICD codes generated are intended as suggestions and were generated based on input data. These codes are preliminary and upon medical billing coder review may be revised to meet current compliance and payer requirements. The provider is responsible for the final determination of appropriate codes, and modifiers. Toño De Leon MD This document has been electronically signed. Note Initiated:05/16/2024 Note Completed:05/16/2024 4:43 PM \\[email or web address]\Central\InterfaceData\Data\Provation\Results\LIVE\[id number].pdf
[2024-05-16] MEDS: APIXABAN 5 MG TABLET PO SCH (20:20)
[2024-05-16] MEDS: PANTOprazole 40 MG TAB PO SCH (20:21)
[2024-05-16] MEDS: CIPROFLOXACIN HCL 0.3% OP SOLN 2.5 ML BTL OP SCH (22:56)
[2024-05-17] MEDS: ACETAMINOPHEN 325 MG TAB PO PRN (06:30)
[2024-05-17 06:36] LABS: Hematocrit (blood only) 27.2 % (42.0-52.0); Hemoglobin 8.2 g/dl (14.0-18.0); Mean Corpuscular Hemoglobin 26.2 pg (25.0-34.0); Mean Corpuscular Hgb Conc 30.1 g/dL (32.0-36.0); Mean Corpuscular Volume 86.9 fL (80.0-100.0); Mean Platelet Volume 10.1 fL (9.4-12.4); Nucleated RBC # (auto) 0.02 K/uL (0.00-0.12); Nucleated RBC % (auto) 0.5 %; Platelet Count 272 K/uL (130-400); RDW Coefficient of Variation 17.2 % (11.5-14.5); RDW Standard Deviation 54.7 fL (36.4-46.3); Red Blood Count 3.13 M/uL (4.70-6.10); White Blood Count 4.36 K/ul (4.8-10.8)
[2024-05-17 07:00] LABS: BUN Creatinine Ratio 13.3 (10-20); Calcium 8.5 mg/dl (8.6-10.3); Creatinine Clr Calc Pharmacy 80.9 ml/min; Potassium 3.4 mmol/L (3.5-5.1)
[2024-05-17] MEDS ORDERED: PANTOprazole 40 MG TAB PO SCH (09:00)
[2024-05-17 10:50] VITALS: O2SAT 98
--- NOTE | 2024-05-17 12:02 | Gastroenterology Progress Note ---
<Statement entered by Toño De Leon MD - 05/17/24 16:44> I have reviewed the history, physical exam, lab and imaging findings as dictated by the mid-level provider, made any necessary modifications, and agree with the stated assessment and recommendations. A total of 30 minutes was spent in the review, direct observation, decision making and discussion of this case with providers, patient and family. Toño De Leon MD Date of Service May 17, 2024 Assessment & Plan (1) Symptomatic anemia: Plan: -No overt GI bleeding -Continue to monitor H/H -Outpatient VCE to be arranged +/- repeat endoscopic studies if recurrent bleeding Admission and Anticipated Discharge Date Admission Date: May 14, 2024 Subjective Patient is a 78 yo male with anemia. He denies any GI bleeding overnight back on anticoagulation. No abdominal pain, nausea, vomiting. Review of Systems Cardiovascular: no chest pain Gastrointestinal: no abdominal pain, no hematemesis and no blood in stools Physical Exam Gastrointestinal (Abdomen): normal bowel sounds, soft, nontender, no hepatosplenomegaly Results & Data Results & Data Vital Signs (Past 12 Hours) Vital Signs Temp Pulse Pulse Resp BP Pulse Ox O2 Del Method 05/17/24 10:49 37.2 C 73 17 113/70 98 Nasal Cannula 05/17/24 10:43 Nasal Cannula 05/17/24 07:43 36.7 C 80 17 137/72 94 Nasal Cannula 05/17/24 07:27 78 05/17/24 04:01 76 16 96 Nasal Cannula 05/17/24 03:25 36.4 C L 77 20 129/70 94 Nasal Cannula O2 Flow Rate 05/17/24 10:49 3 05/17/24 10:43 2 05/17/24 07:43 3 05/17/24 07:27 05/17/24 04:01 3 05/17/24 03:25 2 PG Care Time/CCT Total # of Minutes Spent Total Time Spent with Patient: Total time spent is greater than 50% in coordination of care (as documented) at patient's floor/unit and/or counseling patient: Coding Level of Care Code 77910 SUB INP/OBS CARE 2/35MIN Diagnoses Symptomatic anemia D64.9
--- NOTE | 2024-05-17 12:30 | Medical Student Progress Note ---
Date of Service May 17, 2024 Assessment & Plan (1) Symptomatic anemia: (2) Acute encephalopathy: (3) Iron deficiency anemia: (4) Chronic hypoxic respiratory failure, on home oxygen therapy: (5) H/O transcarotid artery revascularization (TCAR): (6) Thrombocytosis: (7) Fecal occult blood test positive: (8) Paroxysmal atrial fibrillation: (9) Upper abdominal pain: (10) Weakness: Plan 78yo male with b/l BKA, recent left TCAR on 05/01/[address] Murray, Lewy-body dementia, COPD, chronic hypoxic respiratory failure on home O2 - 2 liters continuously, paroxysmal a.fib on Eliquis, chronic thrombocytosis on hydroxyurea, history of stroke, history of sigmoid resection, & BPH presenting with symptomatic anemia, increased confusion, chest/upper abdominal discomfort, and dyspnea. Upon ER presentation was markedly anemic with hemoglobin 6.1 and trace heme positive stool. Iron studies are consistent with severe iron deficiency. He has been taking aspirin, plavix, and Eliquis since his TCAR surgery on 05/01/24. #symptomatic normocytic anemia w/ +hemoccult * s/p 2 units PRBCs in ER, HgB 8.2 today. * Holding Eliquis * Continuing Aspirin and Plavix due to recent L TCAR procedure risk of carotid stent thrombosis * Consider IV venofer while inpatient * CBC AM * GI on board, appreciate recs -No signs of active GI bleeding and no clear source for GI bleed. Consider outpatient video capsule endoscopy per GI -Restart Eliquis and observe per Dr. De Leon to appreciate source for bleeding -Restart heart healthy diet #Abdominal pain - * Epigastric region and left upper quadrant rather than the chest itself, additionally notes pain in LUQ and LLQ * Differential includes esophagitis, gastritis, PUD, splenomegaly-related pain, colon mass * Troponin negative, EKG NSR w/o ischemic changes * he has CAD risk factors but does not have a personal history of such * continue IV Protonix * Colonoscopy 05/16/24 with no acute bleeding #iron deficiency - * Fe studies very c/w such, Iron continues to trend upward without repletion * consider IV venofer while here * s/p 2U pRBC: hgb 7.8 -> 8.2 #recent left TCAR - * Aspirin/plavix must be continued to prevent carotid stent thrombosis * operative site wnl * CTA neck 05/14/24: patent stent in the left carotid bulb and proximal left ICA. There is some deformity of the proximal end of the stent that may be due to adjacent calcified plaque.- Consider US doppler to determine whether this is hemodynamically significant * no hematoma or signs of bleeding in this area #Weakness - above plan addressing anemia and abd pain - discuss PT/OT after colonoscopy #paroxysmal a.fib - * Restart home Eliquis * he is not on rate-controlling agents #chronic hypoxic resp failure on home O2 - * increased to 3 liters NC O2, continue to monitor * recent shortness of breath likely from severe acute anemia rather than COPD * chest x-ray w/o pneumonia * does not examine in CHF * cont inhalers for COPD #acute encephalopathy - * suspect post-operative delirium in the setting of dementia * exacerbated by the surgery itself, the hospital stay for the surgery (was in ICU for 24 hours), anemia, etc. 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 Fajardo and Ann GONZALEZ. Hemoglobin 8.2, patient back on Eliquis, no bleeding episodes. Anticipate discharge home with home health. Subjective Patient is a 78 yo male with anemia. He denies any GI bleeding overnight. No abdominal pain, nausea, vomiting. Expressed mild worsening of SOB, appears to alleviate with increase in cannula to 3L and albuterol treatment. Physical Exam Constitutional: a&o x 3. no acute distress. Neck: TCAR incision appears clean and dry, some tenderness to palpation at medial aspect of scar. No signs of infection. Respiratory: clear to ausculation b/l Cardiovascular: RRR, no m/r/g Gastrointestinal (Abdomen): soft, no tenderness to palpation epigastric region. Splenomegaly is not palpable. Results & Data Vital Signs (Past 12 Hours) Vital Signs Temp Pulse Pulse Resp BP Pulse Ox O2 Del Method 05/17/24 07:43 36.7 C 80 17 137/72 94 Nasal Cannula 05/17/24 07:27 78 05/17/24 04:01 76 16 96 Nasal Cannula 05/17/24 03: 36.4 C L 77 20 129/70 94 Nasal Cannula 05/16/24 23:24 71 05/16/24 23:07 36.6 C 71 19 135/74 96 Nasal Cannula O2 Flow Rate 05/17/24 07:43 3 05/17/24 07:27 05/17/24 04:01 3 05/17/24 03:25 2 05/16/24 23:24 05/16/24 23:07 2
[2024-05-17 16:37] VITALS: BP 123/67; RESP 18; TEMP 97.9
--- NOTE | 2024-05-17 17:09 | Discharge Summary ---
Date of Service May 17, 2024 Admission HPI Per Admitting Provider 78yo male with b/l BKA, recent left TCAR on 05/01/[address] Murray, Lewy-body dementia, COPD, chronic hypoxic respiratory failure on home O2 - 2 liters continuously, paroxysmal a.fib on Eliquis, chronic thrombocytosis on h ydroxyurea, & BPH presents from home due to a variety of symptoms including fatigue, weakness, poor appetite, nausea, upper abdominal pain, lower chest wall pain, pallor, shortness of breath, and increased confusion above his baseline dementia. The patient underwent his Left TCAR at [facility] without any complications and minimal blood loss per the operative record. Since discharge home on May 02 he has had the above symptoms at various points. About 2 days ago the patient was complaining of the chest discomfort along with mild shortness of breath. Since the chest discomfort/shortness of breath persisted into today and given all of the other symptoms his brought him to the ER to be evaluated. Upon presentation his hemoglobin was found to be 6.1. In March 2024 his hemoglobin was ~15. When asked about melena or BRBPR the patient's is uncertain if her has had such as she hasn't seen his stools. She did state that in addition to the nausea he has had constipation as well as the upper abdominal discomfort. Per the ER attending his stool is trace heme+. Admission Exam Per Admitting Provider gen - lying comfortably in bed, NAD eyes - PERRL mouth - MMM, no lesions neck - no JVD, surgical incision site well-healed just above left clavicle; no hematoma, scant ecchymoses posterior neck on left heart - RRR, occasional extra beats, s1 s2, no murmur lungs - occasional faint end-exp wheeze scattered b/l, otherwise CTA b/l; no rales abd - soft, ND, tender high epigastric area and LUQ, BS+, no HSM; no olea-mast sign b/l; right groin - recent vascular access site clean, no ecchymoses; large midline abdominal wall scar ext - b/l BKA; b/l prosthetic legs in place; no edema of thighs skin - no rash; generalized pallor psych - oriented to person only Principal Diagnosis symptomatic anemia, weakness Discharge Exam Gen: A&Ox3, appearing in mild distress, nontoxic in appearance HEENT: horizontal erythematous scar just superior to L clavicle, tenderness to palpation of medial aspect of scar, no significant swelling, warmth, or CV: RRR, soft heart sounds +s1/s2, no m/r/g heard Resp: clear to auscultation b/l, decreased breath sounds globally likely secondary to body habitus and general weakness, no wheeze/rales/rhonchi GI/Abd: +BS, tenderness to palpation LE: BKA b/l, nontender to palpation, no erythema seen Discharge Data Allergies Allergy/AdvReac Type Severity Reaction Status Date / Time ibuprofen Allergy Intermediate HIVES Verified 05/14/24 18:11 Consultations 05/14/24 17:47 ED Decision to Admit Stat 05/14/24 21:31 Consult Gastroenterology Routine Procedures Performed Operation Date: 05/16/24 16:30 Actual Procedures p EGD Biopsy Cytology - Toño De Leon MD s Colonoscopy - Toño De Leon MD Ordered Studies 05/14/24 17:33 CT head/brain wo con Stat 05/14/24 17:34 CT angio neck with con Stat 05/14/24 18:52 CT abd pelvis wo con Stat Hospital Course (1) Symptomatic anemia: (2) Acute encephalopathy: (3) Iron deficiency anemia: (4) Bacterial conjunctivitis of both eyes: (5) Chronic hypoxic respiratory failure, on home oxygen therapy: (6) H/O transcarotid artery revascularization (TCAR): (7) Thrombocytosis: (8) Fecal occult blood test positive: (9) Paroxysmal atrial fibrillation: (10) Upper abdominal pain: (11) Weakness: Plan 78yo male with b/l BKA, recent left TCAR on 05/01/[address] Murray, Lewy-body dementia, COPD, chronic hypoxic respiratory failure on home O2 - 2 liters continuously, paroxysmal a.fib on Eliquis, chronic thrombocytosis on hydroxyurea, history of stroke, history of sigmoid resection, & BPH presenting with symptomatic anemia, increased confusion, chest/upper abdominal discomfort, and dyspnea. Upon ER presentation was markedly anemic with hemoglobin 6.1 and trace heme positive stool. Iron studies are consistent with severe iron deficiency. He has been taking aspirin, plavix, and Eliquis since his TCAR surgery on 05/01/24. #symptomatic normocytic anemia w/ +hemoccult * s/p 2 units PRBCs in ER, hemoglobin has been continuing to increase post upper and lower scopes: 7.8 -> 8.2 morning after restarting Eliquis * Continuing Aspirin and Plavix due to recent L TCAR procedure risk of carotid stent thrombosis Follow up with Dr. Murray outpatient, as he recommends ASA and Plavix for 30 days post TCAR -> 05/31/24 but instructed not to stop taking them until vasc ular followup with Dr. Murray * GI on board, appreciate recs - post EGD/colonoscopy with NO findings concerning for apparent GI bleed, - start oral PPI - restart Eliquis - recheck CBC in AM - tolerating regular heart healthy diet - recommending capsule endoscopy as an outpatient #Abdominal pain - essentially resolved * Epigastric region and left upper quadrant rather than the chest itself, additionally notes pain in LUQ and LLQ * Differential includes esophagitis, gastritis, PUD, splenomegaly-related pain, colon mass * Troponin negative, EKG NSR w/o ischemic changes #iron deficiency - * Fe studies very c/w such * consider IV venofer while here * s/p 2U pRBC: hgb 7.8 -> 7.8 -> 8.2 morning after restarting eliquis * No apparent bleeding seen on EGD or colonoscopy 05/16/24 #recent left TCAR - * Aspirin/plavix must be continued to prevent carotid stent thrombosis: cont 30 days post-TCAR -> 05/31/24 but not to stop taking them until followup with Dr. Murray outpatient * operative site wnl * CTA neck 05/14/24: patent stent in the left carotid bulb and proximal left ICA. There is some deformity of the proximal end of the stent that may be due to a djacent calcified plaque Consider US doppler to determine whether this is hemodynamically significant - can be done outpatient * no hematoma or signs of bleeding in this area #Weakness - above plan addressing anemia and abd pain - discuss PT/OT as options - will receive outpatient at [facility] in [place] #paroxysmal a.fib - -Eliquis per GI post-colonoscopy/EGD with no apparent bleeding -not on rate-controlling agents, no need at this time #chronic hypoxic resp failure on home O2 - * stable on 2 liters NC O2 * recent shortness of breath likely from severe acute anemia rather than COPD * chest x-ray w/o pneumonia * does not examine in CHF * cont inhalers for COPD #acute encephalopathy - * suspect post-operative delirium in the setting of dementia * exacerbated by the surgery itself, the hospital stay for the surgery (was in ICU for 24 hours), anemia, etc. 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 * this platelet condition does confer increased thrombotic risk thus resume Eliquis when safe from GI standpoint/anemia standpoint Total Time Total Time Spent Total Time Spent (In Minutes): Attending time 35 minutes, Sarahi Back DO Discharge Plan Discharge Items Patient Disposition: Home - Self-Care Reason For Visit: SYMPTOMATIC ANEMIA, SUSPECTED GI BLEEDING Discharge Diagnosis: symptomatic normocytic anemia, weakness Activity: Per Instructions section Non-emergency contact: Primary Care Provider Call non-emergency contact if: your symptoms worsen and your pain is not controlled Follow-up/Referrals: [facility] [Primary Care Provider] - Diet: Heart Healthy Addtl Attending Provider Instructions: You were evaluated and treated at [facility] for symptomatic anemia with weakness and abdominal pain. We gave you 2 units of packed red blood cells, which increased your hemoglobin to 7.8 which remained steady for over a day. We initially suspected a GI bleed due to your low hemoglobin, weakness, and abdominal pain, but you underwent both an EGD and colonoscopy on 05/16/24 which showed no apparent bleeding. Therefore, last night we resumed your Eliquis and this morning your hemoglobin was actually up from previous, at 8.2, which gives us even more confidence you are not currently bleeding. You had slight shortness of breath today but that has since resolved, and you are no longer having abdominal pain. You are also on your home O2 requirement of 2L/min. Because of your clinical and medical stability at this time, we feel comfortable discharging you home with outpatient PT services at [facility] in [place] to evaluate and treat your persisting general weakness. Please follow up closely with your PCP - your says the [facility] healthcare providers come to your home so please make sure they come within the week. Also, GI will set up outpatient capsule endoscopy to ensure you have no concerning signs in the parts of your GI tract the UPPER and LOWER endoscopies cannot reach. Please also follow up with Dr. Murray (vascular surgeon) outpatient, as he did your Left TCAR procedure - he would like your aspirin and Plavix continued for 30 days post-TCAR procedure: since this was done on 05/01/24, you may stop them as early as 05/31/24 BUT please do NOT stop them prior to seeing Dr. Murray for followup. Thank you for allowing us to participate in your care. Pending Studies at Discharge: No Stand-Alone Forms: My [facility], Smoking Cessation Medications and DC Order Prescriptions: New omeprazole 20 mg capsule,delayed release(DR/EC) 20 mg PO DAILY Qty: 30 0RF Continued cyclobenzaprine 10 mg tablet 10 mg PO AMHS PRN (Reason: MUSCLE SPASMS) acetaminophen [Tylenol] 325 mg Tablet 650 mg PO Q4 PRN (Reason: PAIN/FEVER) sertraline 100 mg tablet 200 mg PO DAILY prazosin 5 mg capsule 5 mg PO HS trazodone 150 mg tablet 150 mg PO HS montelukast 10 mg tablet 10 mg PO DAILY albuterol sulfate 90 mcg/actuation Hfa Aerosol Inhaler 2 puff INHALATION QID PRN (Reason: Shortness Of Breath Or Wheezing) finasteride 5 mg tablet 5 mg PO DAILY bupropion HCl 300 mg tablet extended release 24 hr 300 mg PO QAM tiotropium bromide [Spiriva with HandiHaler] 18 mcg capsule, w/inhalation device 1 cap INHALATION QAM Eliquis 5 mg tablet 5 mg PO AMHS folic acid 1 mg Tablet 1 mg PO QAM Qty: 0 0RF clopidogrel [Plavix] 75 mg Tablet 75 mg PO QAM carbidopa-levodopa 25-100 mg tablet,disintegrating 2 tab PO TID hydroxyurea 500 mg Capsule See Rx Instructions .ROUTE .COMPLEX Patient Comments: BID M-F , no weekends Rx Instructions: TAKES 1,000 MG BID, MONDAY THROUGH MONDAY. OFF MONDAY & SUNDAYS. aspirin 81 mg Capsule 81 mg PO DAILY atorvastatin 40 mg Tablet 20 mg PO HS buspirone 5 mg Tablet 7.5 mg PO TID fluticasone propion-salmeterol 250-50 mcg/dose Blister With Device 1 inh INHALATION BID miconazole nitrate 2 % Powder 1 applic TOPICAL BID PRN (Reason: FUNGAL INFECTION) spironolactone 25 mg Tablet 25 mg PO DAILY cholecalciferol (vitamin D3) [Vitamin D3] 25 mcg (1,000 unit) Capsule 50 mcg PO DAILY diclofenac sodium 1 % Gel 2 g TOPICAL QID PRN (Reason: JOINT PAIN) guaifenesin [Mucinex] 600 mg Tablet Extended Release 12hr 600 mg PO BID PRN (Reason: CONGESTION/COUGH) Discharge Orders: Discharge Order (Routine); Ordered 05/17/24 Ordered By: Yadiel Luther/Other Patient Handouts: Capsule Endoscopy, Anemia Admission Data Admit Date/Time: 05/14/24 19:14 Attending Provider: Sarahi Back Admit Provider: Toño Lopez Primary Care Provider: [facility] Other Providers: Toño Lopez; Toño De Leon Other Interventions: Discharge Summary Assessment (RN) Last Done: 05/17/24 18:31 Supervising Physician Co-Signing Physician Notes I personally examined the patient and verified weeks points of history and exam, discussed case, and agree with decision making and plan documented by Dr. Fajardo. Patient is a 78-year-old male with pertinent past medical history of recent TCAR (April 2024), bilateral BKA, Lewy body dementia, CVA, PAF, chronic respiratory failure on supplemental oxygen on admission for symptomatic anemia. Patient was evaluated by gastroenterology with EGD and colonoscopy, he was started on PPI therapy, and has resumed DAPT therapy for recent TCAR in addition to Eliquis for paroxysmal A-fib. Hemoglobin 8.2 on discharge. Outpatient GI follow-up with possible repeat of endoscopic studies arranged. Patient is to return home under the care of his , he will continue outpatient physical therapy at [facility]. Patient recommended to follow-up with PCP in 1 week for hospitalization follow-up. Resident Activity Tracking Resident Involvement: Resident Care Provided Care Provided: Adult Hospital Medicine
[2024-05-17 18:30] VITALS: PULSE 73
== END 2024-05-17 18:57 | disposition home or self-care (01) | DRG 812 ==
LOC: ED 16:40 → 4W 19:14 → SUATTDRO 19:14 → 4W 20:59

== ENCOUNTER 2024-05-31 11:02 | Inpatient (IN) ==
[2024-05-31 11:29] LABS: iSTAT Creatinine 1.3 mg/dl (0.6-1.3); iSTAT Hemoglobin 11.2 g/dl (14.0-18.0); iSTAT Ionized Calcium 1.19 mmol/l (1.12-1.32); iSTAT Potassium 3.6 mmol/L (3.3-5.0)
[2024-05-31] MEDS: OPTIRAY 320 125ml IV ONE (11:33)
[2024-05-31] MEDS ORDERED: SODIUM CHLORIDE 0.9% 100 ML IV PRN (11:34)
--- NOTE | 2024-05-31 11:37 | Emergency Department Note ---
Impression & Plan Weakness, Anemia, Acute GI bleeding, Confusion ED Provider Note NAME: EDWARD RAMIREZ AGE: 78 SEX: M : 1945 ARRIVES VIA: Ambulance INFORMANT: Patient ED PROVIDER(S): Andi Thompson DO CHIEF COMPLAINT: Weakness, lethargy and dark stools HPI: Patient is a 78-year-old male who presents ER with a past medical history of splenomegaly, thrombocytosis, esophagitis, acute encephalopathy, TCAR who presents to the ER for right-sided facial droop per which has been present since midday yesterday. He does take Eliquis and took his dose this morning. He denies any headache or change in vision. No chest pain or shortness of breath. No belly pain. No nausea, vomiting, or diarrhea. He admits to black stools which have been present for the past 2 days. He feels very weak and rundown. No other exacerbating or remitting factors. He is unable to get up and walk on his own as he is so weak. ADDITIONAL HISTORY OBTAINED: Per HPI Chronic Medical/Social Conditions Affecting Care: Per HPI PAST MEDICAL HISTORY:See Below PAST SURGICAL HISTORY:See Below FAMILY HISTORY:See Below SOCIAL HISTORY:See Below HOME MEDICATIONS:See Below ALLERGIES:See Below VITALS:See Below PHYSICAL EXAMINATION: GENERAL: Sitting up in bed, alert, well appearing, well nourished, no distress, non-toxic EYE EXAM: normal conjunctiva. PERRL and EOM's grossly intact. OROPHARYNX: no exudate, no erythema, lips, buccal mucosa, and tongue normal and mucous membranes are moist NECK: supple, no nuchal rigidity, no adenopathy, non-tender LUNGS: Clear to auscultation. Normal chest wall mechanics HEART: no murmurs, S1 normal and S2 normal ABDOMEN: abdomen soft, non-tender, normo-active bowel sounds, no masses, no rebound or guarding. RECTAL: hem + UPPER EXTREMITIES: upper extremities are grossly normal. LOWER EXTREMITIES: No pitting edema. NEURO EXAM: Normal sensorium, cranial nerves II-XII intact, normal speech, no weakness of arms, no weakness of legs. MEDICAL DECISION MAKING: Patient is a 78-year-old male who presents ER for above-stated complaint. IV was established and blood work was obtained. Labs show no significant leukocytosis. Hemoglobin at 9.4 which is actually slightly better than baseline. INR at 1.2. BMP normal LFTs bilirubin was unremarkable. Troponin was negative. Patient was typed and crossed while here. Rectal was heme positive. Patient was placed on a Protonix drip and bolus. Patient was given IV fluids. Updated bedside. Discussed case with the hospitalist for further evaluation management treatment. Stroke alert was initially called due to right-sided facial droop which occurred yesterday midday. This was called by nursing staff. On exam due to fever this is more metabolic in nature as he has no focal deficits and feels very weak and worn out. Consults/Care Managements Discussions: Per [facility] Triage Nursing notes reviewed. Limited review of prior medical records performed Vital Signs: reviewed and remarkable for no significant abnormalities Differential diagnosis: Differential diagnoses includes but is not limited to pneumonia, bronchitis, COPD/Asthma exacerbation, pneumothorax, pulmonary embolism, congestive heart failure, acute coronary syndrome ER treatment provided: See below Diagnostics interpreted by me include EKG and cardiac monitoring as listed below: -Cardiac Monitoring: An order was placed for continuous cardiac monitoring. The monitor shows a rate of 55 with sinus rhythm. -ECG: Sinus rhythm rate of 61 Normal axis No PVCs QTc 434 -Laboratory studies:Interpreted by me as stated above in MDM and shown below. Imaging studies: Xrays: As interpreted by me: Portable AP upright view of the chest shows no focal CTs show: CTAs of the head and neck showed no acute pathology Procedures:none Critical Care: None Past Med/Surg History Problem List (Updated 05/31/24 @ 15:39 by Andi Thompson DO) Confusion (Acute) Acute GI bleeding (Acute) Anemia (Acute) Weakness (Acute) Stroke-like symptoms Bacterial conjunctivitis of both eyes Fecal occult blood test positive Thrombocytosis chronic Splenomegaly History of esophagitis Breath shortness (Acute) Weakness (Acute) Symptomatic anemia (Acute) Acute encephalopathy Chronic hypoxic respiratory failure, on home oxygen therapy H/O transcarotid artery revascularization (TCAR) Iron deficiency anemia Upper abdominal pain Chest wall pain Symptomatic anemia S/P vascular surgery Carotid stenosis Lewy body dementia Hematuria (Acute) 05/2022 Somnolence (Acute) Vitamin D deficiency Nephrolithiasis Anemia Esophagitis Hypoxemia 02/2022 Asthma exacerbation 02/2022 Weakness (Acute) COPD exacerbation 02/2022 Peripheral artery disease Atrial tachycardia HTN (hypertension) Paroxysmal atrial fibrillation Atrial fibrillation and flutter DVT prophylaxis Chronic bronchitis Obesity S/P hernia repair History of partial colectomy Prolonged QT interval hx of (WIw=850 EKG 05/25/19); 03/2024 EKG does not show prolonged QT DDD (degenerative disc disease) (Acute) History of back surgery (Chronic) back surgery x3 at [facility] VIK on CPAP (Chronic) Noncompliant MRSA (methicillin resistant Staphylococcus aureus) (Chronic) negative nasal swab on 06/24/15 and 10/05/18 PTSD (post-traumatic stress disorder) (Chronic) do not wake patient by touching, wake patient by saying name Asthma (Chronic) BPH (benign prostatic hyperplasia) (Chronic) Medical History CKD (chronic kidney disease) (HFpEF) heart failure with preserved ejection fraction Obesity GERD (gastroesophageal reflux disease) Hyperlipidemia On home oxygen therapy 2 LPM Wheelchair dependent s/p B/L BKA Parkinson disease History of pneumonia Feb 29, 2024 hospitalized at [facility], resolved per pt's History of stroke 03/01/2024 at [facility] while in hospital, was mild per pt's , had facial drooping which has resolved Hx MRSA infection negative nasal swab on 06/24/15 and 10/05/18 PTSD (post-traumatic stress disorder) do not wake patient by touching, wake patient by saying name BPH (benign prostatic hyperplasia) Asthma well controlled per pt's Hx of sepsis 2019 VIK (obstructive sleep apnea) non compliant with cpap History of cardioversion Paroxysmal atrial fibrillation dx approx 2020 > Eliquis > no pacer > follows with [facility] cardio ; per 12/07/23 Cardio note, 'Afib with slow VR' Atrial tachycardia controlled per pt's ; per chart review, not mentioned in Cardio note HTN (hypertension) PAD (peripheral artery disease) COPD (chronic obstructive pulmonary disease) controlled per pt's Hx: UTI (urinary tract infection) none at present History of COVID-19 05/2022 Hx of Clostridium difficile infection 2011 Hx of sigmoidoscopy History of kidney stones passed on own Anemia follows with heme/onc Lewy body dementia Diverticular disease Surgical History History of tooth extraction History of colonoscopy History of back surgery L5-S1 Hx of hernia repair History of colon resection no colostomy > due to C diff 2011 S/P bilateral BKA (below knee amputation) right 2019, left 2020 > prosthetic bilat Status post ORIF of fracture of ankle 05/26/[address] Farhan DIEZ with sedation. Family History Mother Colorectal cancer Father PAD (peripheral artery disease) Denies family history of Coronary heart disease Social History Smoking Status: Former smoker Tobacco Type: Smokeless Tobacco (Dip or Chew) Second Hand Exposure: No; Do You Dip or Chew Tobacco: No (quit approx 3 yrs ago); Hx Alcohol Use: No Hx Substance Use: No Preferred Language: Yi Communication Ability: Effective Communication Ability Comment: PT CONFUSED Grain Origination Specialist Required: No Beliefs That Will Affect Care: None marital status: Current Living Situation: Spouse Current Living Situation Comment: with and grandson current occupational status: 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; 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 also in the [employer] during How many Children do You have: 2 Feels Safe at Home: Yes Safety Concerns: Feels Safe At This Time Assistive Devices: BiPap, Denture - Upper, Hearing Aid - Bilateral, Mechanical Lift, Oxygen - Continuous and Prosthesis Assistive Devices Comment: pt has grab bar as well Allergies Allergies Allergy/AdvReac Type Severity Reaction Status Date / Time ibuprofen Allergy Intermediate HIVES Verified 05/31/24 14:15 adhesive tape Allergy Unknown Unknown - Unverified 05/31/24 14:15 On file / [facility] Home Meds Home Medications Medication Instructions Recorded Confirmed acetaminophen 325 mg tablet 650 mg PO Q4 PRN PAIN/FEVER 06/22/22 05/31/24 (Tylenol) albuterol sulfate 90 mcg/actuation 2 puff inhalation QID PRN 06/22/22 05/31/24 aerosol inhaler Shortness Of Breath Or Wheezing apixaban 5 mg tablet (Eliquis) 5 mg PO AMHS 06/22/22 05/31/24 bupropion HCl 300 mg 24 hr tablet, 300 mg PO QAM 06/22/22 05/31/24 extended release cyclobenzaprine 10 mg tablet 10 mg PO AMHS PRN MUSCLE SPASMS 06/22/22 05/31/24 finasteride 5 mg tablet 5 mg PO DAILY 06/22/22 05/31/24 montelukast 10 mg tablet 10 mg PO DAILY 06/22/22 05/31/24 prazosin 5 mg capsule 5 mg PO HS 06/22/22 05/31/24 sertraline 100 mg tablet 200 mg PO DAILY 06/22/22 05/31/24 tiotropium bromide 18 mcg capsule 1 cap inhalation QAM 06/22/22 05/31/24 with inhalation device (Spiriva with HandiHaler) trazodone 150 mg tablet 150 mg PO HS 06/22/22 05/31/24 clopidogrel 75 mg tablet (Plavix) 75 mg PO QAM 04/04/24 05/31/24 hydroxyurea 500 mg capsule 500 mg PO DIRECTED 04/04/24 05/31/24 atorvastatin 40 mg tablet 20 mg PO HS 05/14/24 05/31/24 buspirone 5 mg tablet 0 mg PO TID 05/14/24 05/31/24 cholecalciferol (vitamin D3) 25 50 mcg PO DAILY 05/14/24 05/31/24 mcg (1,000 unit) capsule (Vitamin D3) diclofenac sodium 1 % topical gel 2 g topical QID PRN JOINT PAIN 05/14/24 05/31/24 fluticasone 250 mcg-salmeterol 50 1 inh inhalation BID 05/14/24 05/31/24 mcg/dose blistr powdr for inhalation guaifenesin 600 mg tablet, 600 mg PO BID PRN CONGESTION/COUGH 05/14/24 05/31/24 extended release 12 hr (Mucinex) miconazole nitrate 2 % topical 1 applic topical BID PRN FUNGAL 05/14/24 05/31/24 powder INFECTION spironolactone 25 mg tablet 25 mg PO DAILY 05/14/24 05/31/24 albuterol sulfate 2.5 mg/3 mL 2.5 mg inhalation QID PRN 05/31/24 05/31/24 (0.083 %) solution for nebulization Shortness Of Breath Or Wheezing aspirin 81 mg tablet,delayed 0 mg PO DAILY 05/31/24 05/31/24 release carbidopa 25 mg-levodopa 100 mg 2 tab PO TID 05/31/24 05/31/24 tablet docusate sodium 100 mg capsule 100 mg PO BID PRN Constipation 05/31/24 05/31/24 food supplemt, lactose-reduced 1 ea PO DAILY 05/31/24 05/31/24 pantoprazole 40 mg tablet,delayed 40 mg PO DAILY 05/31/24 05/31/24 release pregabalin 150 mg capsule 150 mg PO BID 05/31/24 05/31/24 Previous Rx's Medication Instructions Recorded folic acid 1 mg tablet 1 mg PO QAM #0 tabs 06/27/22 Results & Data (ED) Vital Signs Vital Signs - 24 hr 05/31/24 11:12 05/31/24 11:12 05/31/24 11:12 Temperature Temperature Source Pulse Rate Pulse Rate from SpO2 Sensor Respiratory Rate Respiratory Effort / Characteristics Blood Pressure 137/63 137/63 137/63 Blood Pressure Mean 89 89 89 Pulse Oximetry Oxygen Delivery Method Oxygen Flow Rate Sepsis Recent Fever Within 48 Hours Sepsis New/Unexplained Change in Mental Status Sepsis Action Taken by Nursing 05/31/24 11:12 05/31/24 11:12 05/31/24 11:12 Temperature Temperature Source Pulse Rate Pulse Rate from SpO2 Sensor Respiratory Rate Respiratory Effort / Characteristics Blood Pressure 137/63 137/63 137/63 Blood Pressure Mean 89 89 89 Pulse Oximetry Oxygen Delivery Method Oxygen Flow Rate Sepsis Recent Fever Within 48 Hours Sepsis New/Unexplained Change in Mental Status Sepsis Action Taken by Nursing 05/31/24 11:15 05/31/24 11:21 05/31/24 11:29 Temperature 36.7 C Temperature Source Oral Pulse Rate 61 61 Pulse Rate from SpO2 Sensor 61 Respiratory Rate 23 22 Respiratory Effort / Characteristics Spontaneous Labored Blood Pressure 137/63 129/62 Blood Pressure Mean 87 98 Pulse Oximetry 93 95 Oxygen Delivery Method Nasal Cannula Oxygen Flow Rate 2 Sepsis Recent Fever Within 48 Hours No Sepsis New/Unexplained Change in Mental Status N/A Sepsis Action Taken by Nursing No Action Required 05/31/24 11:29 05/31/24 11:29 05/31/24 11:29 Temperature Temperature Source Pulse Rate Pulse Rate from SpO2 Sensor Respiratory Rate Respiratory Effort / Characteristics Blood Pressure 129/62 129/62 129/62 Blood Pressure Mean 98 98 98 Pulse Oximetry Oxygen Delivery Method Oxygen Flow Rate Sepsis Recent Fever Within 48 Hours Sepsis New/Unexplained Change in Mental Status Sepsis Action Taken by Nursing 05/31/24 11:29 05/31/24 11:29 05/31/24 11:29 Temperature Temperature Source Pulse Rate Pulse Rate from SpO2 Sensor Respiratory Rate Respiratory Effort / Characteristics Blood Pressure 129/62 129/62 129/62 Blood Pressure Mean 98 98 98 Pulse Oximetry Oxygen Delivery Method Oxygen Flow Rate Sepsis Recent Fever Within 48 Hours Sepsis New/Unexplained Change in Mental Status Sepsis Action Taken by Nursing 05/31/24 11:29 05/31/24 11:29 05/31/24 11:29 Temperature Temperature Source Pulse Rate Pulse Rate from SpO2 Sensor Respiratory Rate Respiratory Effort / Characteristics Blood Pressure 129/62 129/62 129/62 Blood Pressure Mean 98 98 98 Pulse Oximetry Oxygen Delivery Method Oxygen Flow Rate Sepsis Recent Fever Within 48 Hours Sepsis New/Unexplained Change in Mental Status Sepsis Action Taken by Nursing 05/31/24 11:30 05/31/24 12:00 05/31/24 12:01 Temperature Temperature Source Pulse Rate 62 58 L 58 L Pulse Rate from SpO2 Sensor 61 55 L Respiratory Rate 20 20 Respiratory Effort / Characteristics Blood Pressure Blood Pressure Mean Pulse Oximetry 95 97 Oxygen Delivery Method Oxygen Flow Rate Sepsis Recent Fever Within 48 Hours Sepsis New/Unexplained Change in Mental Status Sepsis Action Taken by Nursing 05/31/24 12:30 05/31/24 12:30 05/31/24 12:30 Temperature Temperature Source Pulse Rate Pulse Rate from SpO2 Sensor Respiratory Rate Respiratory Effort / Characteristics Blood Pressure 117/91 117/91 117/91 Blood Pressure Mean 103 103 103 Pulse Oximetry Oxygen Delivery Method Oxygen Flow Rate Sepsis Recent Fever Within 48 Hours Sepsis New/Unexplained Change in Mental Status Sepsis Action Taken by Nursing 05/31/24 12:30 05/31/24 12:30 05/31/24 12:30 Temperature Temperature Source Pulse Rate Pulse Rate from SpO2 Sensor Respiratory Rate Respiratory Effort / Characteristics Blood Pressure 117/91 117/91 117/91 Blood Pressure Mean 103 103 103 Pulse Oximetry Oxygen Delivery Method Oxygen Flow Rate Sepsis Recent Fever Within 48 Hours Sepsis New/Unexplained Change in Mental Status Sepsis Action Taken by Nursing 05/31/24 12:30 05/31/24 12:30 05/31/24 12:45 Temperature Temperature Source Pulse Rate 55 L Pulse Rate from SpO2 Sensor 56 L Respiratory Rate 16 Respiratory Effort / Characteristics Blood Pressure 117/91 117/91 Blood Pressure Mean 103 103 Pulse Oximetry 98 Oxygen Delivery Method Oxygen Flow Rate Sepsis Recent Fever Within 48 Hours Sepsis New/Unexplained Change in Mental Status Sepsis Action Taken by Nursing 05/31/24 12:57 05/31/24 13:00 05/31/24 13:00 Temperature Temperature Source Pulse Rate 55 L Pulse Rate from SpO2 Sensor 58 L Respiratory Rate 16 Respiratory Effort / Characteristics Blood Pressure 129/93 129/93 Blood Pressure Mean 109 109 Pulse Oximetry 98 Oxygen Delivery Method Oxygen Flow Rate Sepsis Recent Fever Within 48 Hours Sepsis New/Unexplained Change in Mental Status Sepsis Action Taken by Nursing 05/31/24 13:00 05/31/24 13:00 05/31/24 13:00 Temperature Temperature Source Pulse Rate Pulse Rate from SpO2 Sensor Respiratory Rate Respiratory Effort / Characteristics Blood Pressure 129/93 129/93 129/93 Blood Pressure Mean 109 109 109 Pulse Oximetry Oxygen Delivery Method Oxygen Flow Rate Sepsis Recent Fever Within 48 Hours Sepsis New/Unexplained Change in Mental Status Sepsis Action Taken by Nursing 05/31/24 13:00 Temperature Temperature Source Pulse Rate Pulse Rate from SpO2 Sensor Respiratory Rate Respiratory Effort / Characteristics Blood Pressure 129/93 Blood Pressure Mean 109 Pulse Oximetry Oxygen Delivery Method Oxygen Flow Rate Sepsis Recent Fever Within 48 Hours Sepsis New/Unexplained Change in Mental Status Sepsis Action Taken by Nursing Laboratory Data 05/31/24 11:11 05/31/24 11:11 Lab Results 05/31/24 05/31/24 05/31/24 Range/Units 11:11 11:17 11:45 WBC 7.41 (4.8-10.8) K/ul RBC 3.46 L (4.70-6.10) M/uL Hgb 9.4 L (14.0-18.0) g/dl POC Hgb 11.2 L (14.0-18.0) g/dl Hct 32.8 L (42.0-52.0) % POC Hct 33 L (42-52) % MCV 94.8 (80.0-100.0) fL MCH 27.2 (25.0-34.0) pg MCHC 28.7 L (32.0-36.0) g/dL RDW Std Deviation 73.0 H (36.4-46.3) fL RDW Coeff of Hector 21.2 H (11.5-14.5) % Plt Count 232 (130-400) K/uL MPV 11.3 (9.4-12.4) fL Immature Gran % (Auto) 2.7 % Neut % (Auto) 73.1 % Lymph % (Auto) 11.1 % Dare % (Auto) 11.6 % Eos % (Auto) 0.8 % Baso % (Auto) 0.7 % Neut # (Auto) 5.42 (1.40-6.50) K/uL Lymph # (Auto) 0.82 L (1.20-3.40) K/uL Dare # (Auto) 0.86 H (0.11-0.59) K/uL Eos # (Auto) 0.06 (0.00-0.50) K/uL Baso # (Auto) 0.05 (0.00-0.20) K/uL Immature Gran # (Auto) 0.20 (0.01-0.20) K/uL Anisocytosis Present Tear Drop Cells 1+ PT 12.6 H (9.0-12.0) Seconds INR 1.2 H (0.9-1.1) APTT 31 (21-31) Seconds PTT Ratio 1.2 POC Sodium 143 (135-144) mmol/L Sodium 141 (136-145) mmol/L POC Potassium 3.6 (3.3-5.0) mmol/L Potassium 3.6 (3.5-5.1) mmol/L POC Chloride 102 (101-112) mmol/L Chloride 106 (98-107) mmol/L Carbon Dioxide 31 (21-32) mmol/L POC Total CO2 27 (24-31) mmol/L Anion Gap 4 (3-11) POC Anion Gap 19.0 (16-25) mmol/L POC BUN 14 (7-18) mg/dl BUN 15 (6-23) mg/dl Creatinine 1.15 (0.6-1.4) mg/dl POC Creatinine 1.3 (0.6-1.3) mg/dl Est Cr Clr Drug Dosing 50.5 ml/min eGFR 65.96 BUN/Creatinine Ratio 13.0 (10-20) Glucose 96 (70-99(Fasting)) mg/dl POC Glucose (other) 97 (70-99) mg/dl Estimat Average Glucose Cancelled Hemoglobin A1c Cancelled Calcium 9.2 (8.6-10.3) mg/dl POC Ioniz Calcium Bertha 1.19 (1.12-1.32) mmol/l Magnesium 1.7 (1.7-2.4) mg/dl Total Bilirubin 0.5 (0.2-1.0) mg/dl AST 12 L (13-39) U/L ALT < 3 L (7-52) U/L Alkaline Phosphatase 57 (34-104) U/L Troponin I High Sens 4.1 (0-20) pg/ml Total Protein 6.7 (6.0-8.3) gm/dl Albumin 4.2 (3.4-5.0) gm/dl Globulin 2.5 (2.5-4.0) gm/dl Albumin/Globulin Ratio 1.7 (0.9-2) Triglycerides 96 (0-150) mg/dl Cholesterol 93 (0-200) mg/dl LDL Cholesterol, Calc 40 mg/dl VLDL Cholesterol, Calc 19 (0-30) mg/dl HDL Cholesterol 34 mg/dl Cholesterol/HDL Ratio 2.7 (0-5) Blood Type O Positive Antibody Screen NEGATIVE Crossmatch See Detail Administered Medications Discontinued Medications Aspirin (Aspirin Chew 324 Mg) 324 mg PO NOW STA Stop: 05/31/24 13:26 Last Admin: 05/31/24 13:34 Dose: 324 mg Documented By: SERGIO Pantoprazole Sodium 40 mg/ (Dextrose) 100 mls @ 20 mls/hr IV Q5H MARIBETH Stop: 06/30/24 11:59 Last Infusion: 05/31/24 14:34 Dose: Infused Documented By: Admin: 05/31/24 12:28 Dose: 8 mg/hr, 20 mls/hr Documented By: CAROLINE Pantoprazole Sodium 80 mg/ (Dextrose) 120 mls @ 480 mls/hr IV NOW ONE Stop: 05/31/24 11:48 Last Infusion: 05/31/24 13:47 Dose: Infused Documented By: Admin: 05/31/24 12:28 Dose: 480 mls/hr Documented By: CAROLINE Ioversol (Optiray 320 125ml) 120 ml IV ONCE ONE Stop: 05/31/24 11:34 Last Admin: 05/31/24 11:33 Dose: 120 ml Documented By: MARYLOU Pantoprazole Sodium (Pantoprazole Bolus/Drip) 1 each IV NOW STA Stop: 05/31/24 11:35 Last Admin: 05/31/24 12:28 Dose: 1 each Documented By: CAROLINE Imaging Data Radiologist's Impression: Head CT 05/31/24 11:18 CT head/brain wo con CLINICAL HISTORY: 78 years-old Male with tia sx. Acute stroke like symptoms TECHNIQUE: Multiple axial CT images of the head were obtained without contrast. A dose lowering technique was utilized adhering to the principles of ALARA. COMPARISON: CTA head of same day, head CT 05/14/2024 FINDINGS: No acute intracranial hemorrhage, midline shift, intracranial mass, hydrocephalus, territorial ischemia or abnormal extra-axial collection. Involutional changes with chronic microvascular ischemic disease. Few small areas of stable encephalomalacia again noted within the left cerebrum. The calvarium is intact. Small bilateral mastoid effusions. Postoperative changes of the paranasal sinuses. Unremarkable soft tissues. Unchanged metallic density focus of the lateral left temporal scalp IMPRESSION: No acute intracranial abnormality. ACT 112: Negative or not required by law. The above report was generated using voice recognition software. It may contain grammatical, syntax or spelling errors. Electronically signed by: Natanael Valladares M.D. 05/31/2024 11:57 AM Head CTA 05/31/24 11:18 CTA ANGIOGRAPHY OF THE HEAD CLINICAL HISTORY: TIA sx COMPARISON STUDY: Head CT May 14, 2024. CTA of the head March 01, 2024. TECHNIQUE: Helical axial images of the head were obtained following uneventful intravenous administration of 120 cc of Optiray. Sagittal and coronal reconstructions were viewed as well as maximal intensity projections on an independent 3-D workstation. Automated exposure control was utilized for the study. A dose lowering technique was utilized adhering to the principles of ALARA. FINDINGS: Please note that the head CT will be reported separately. There is no acute intracranial hemorrhage, midline shift or mass effect. Ventricular system is unremarkable. There are no extra-axial collections. There is moderate calcified atherosclerotic plaque within the bilateral cavernous carotids with mild stenosis. There is no high-grade stenosis within the intracranial vessels. No vessel occlusion is identified. No intracranial aneurysm is identified. The posterior circulation is also intact. IMPRESSION: No large vessel occlusion. No intracranial aneurysm. ACT 112: Negative or not required by law. Electronically signed by: Diego Jim M.D. 05/31/2024 11:57 AM Neck CTA 05/31/24 11:20 CT ANGIOGRAPHY OF THE NECK WITH CONTRAST CLINICAL HISTORY: tia sx COMPARISON STUDY: CTA of the neck May 14, 2024. Technique: CT angiography of the carotid and vertebral arteries was obtained using Optiray and 3D reconstruction on an independent workstation. NASCET criteria was utilized. Automated exposure control was utilized for the study. A dose lowering technique was utilized adhering to the principles of ALARA. CT DOSE: 1054.04 mGy.cm Findings: Visualized portions of the lung apices are unremarkable. There is no cervical lymphadenopathy. There are no cervical spine fractures. A stent within the left carotid bulb and proximal left internal carotid artery is patent and unchanged in appearance since CTA of May 14, 2024. Deformity of the proximal aspect of the stent with moderate extrinsic narrowing is unchanged. There is moderate plaque within the right carotid bifurcation without stenosis of the proximal right internal carotid artery. Vertebral arteries are patent. There is no dissection or aneurysm within the neck. IMPRESSION: 1. No change since CTA of May 14, 2024. 2. Patent left carotid stent, as described above. Deformity of the proximal aspect of the stent with moderate extrinsic narrowing, unchanged since prior exam. ACT 112: Negative or not required by law. Electronically signed by: Diego Jim M.D. 05/31/2024 11:55 AM Chest X-Ray 05/31/24 11:22 XR chest 1V portable HISTORY: 78 years-old Male neuro deficit, acute stroke suspected acute stroke like symptoms COMPARISON: 05/15/2019 TECHNIQUE: AP view of the chest FINDINGS: Cardiac silhouette is enlarged. No pneumothorax, pleural effusion, airspace consolidation or pulmonary edema. Bones appear grossly intact. IMPRESSION: Cardiomegaly without acute process. ACT 112: Negative or not required by law. The above report was generated using voice recognition software. It may contain grammatical, syntax or spelling errors. Electronically signed by: Natanael Valladares M.D. 05/31/2024 11:53 AM Discharge Plan Visit Data Chief Complaint: TIA Symptoms Stated Complaint: WEAKNESS, ALOC, URINARY SX ED Provider: Andi Thompson Discharge Problem: Weakness, Anemia, Acute GI bleeding, Confusion Patient Disposition: Admitted As Inpatient Discharge Instructions Interventions: ED Discharge Assessment Last Done: 05/31/24 14:09 Discharge Problem: Anemia Qualifiers: Anemia type: unspecified type Qualified Code(s): D64.9 - Anemia, unspecified
[2024-05-31 11:44] LABS: Basophils # (auto) 0.05 K/uL (0.00-0.20); Basophils % (auto) 0.7 %; Eosinophils # (auto) 0.06 K/uL (0.00-0.50); Eosinophils % (auto) 0.8 %; Hematocrit (blood only) 32.8 % (42.0-52.0); Hemoglobin 9.4 g/dl (14.0-18.0); Immature Granulocytes % (auto) 2.7 %; Lymphocytes # (auto) 0.82 K/uL (1.20-3.40); Lymphocytes % (auto) 11.1 %; Mean Corpuscular Hemoglobin 27.2 pg (25.0-34.0); Mean Corpuscular Hgb Conc 28.7 g/dL (32.0-36.0); Mean Corpuscular Volume 94.8 fL (80.0-100.0); Mean Platelet Volume 11.3 fL (9.4-12.4); Monocytes # (auto) 0.86 K/uL (0.11-0.59); Monocytes % (auto) 11.6 %; Neutrophils # (auto) 5.42 K/uL (1.40-6.50); Neutrophils % (auto) 73.1 %; Platelet Count 232 K/uL (130-400); RDW Coefficient of Variation 21.2 % (11.5-14.5); Red Blood Count 3.46 M/uL (4.70-6.10); White Blood Count 7.41 K/ul (4.8-10.8)
--- NOTE | 2024-05-31 11:54 | XRay Report ---
XR chest 1V portable HISTORY: 78 years-old Male neuro deficit, acute stroke suspected acute stroke like symptoms COMPARISON: 05/15/2019 TECHNIQUE: AP view of the chest FINDINGS: Cardiac silhouette is enlarged. No pneumothorax, pleural effusion, airspace consolidation or pulmonar y edema. Bones appear grossly intact. IMPRESSION: Cardiomegaly without acute process. ACT 112: Negative or not required by law. The above report was generated using voice recognition software. It may contain grammatical, syntax o r spelling errors. Electronically signed by: Natanael Valladares M.D. 05/31/2024 11:53 AM
--- NOTE | 2024-05-31 11:57 | CT Scan Report ---
CT ANGIOGRAPHY OF THE NECK WITH CONTRAST CLINICAL HISTORY: tia sx COMPARISON STUDY: CTA of the neck May 14, 2024. Technique: CT angiography of the carotid and vertebral arteries was obtained using Optiray and 3D rec onstruction on an independent workstation. NASCET criteria was utilized. Automated exposure control was utilized for the study. A dose lowering technique was utilized adhering to the principles of ALA RA. CT DOSE: 1054.04 mGy.cm Findings: Visualized portions of the lung apices are unremarkable. There is no cervical lymphadenopat hy. There are no cervical spine fractures. A stent within the left carotid bulb and proximal left int ernal carotid artery is patent and unchanged in appearance since CTA of May 14, 2024. Deformity of the proximal aspect of the stent with moderate extrinsic narrowing is unchanged. There is moderate pl aque within the right carotid bifurcation without stenosis of the proximal right internal carotid art malvin. Vertebral arteries are patent. There is no dissection or aneurysm within the neck. IMPRESSION: 1. No change since CTA of May 14, 2024. 2. Patent left carotid stent, as described above. Deformity of the proximal aspect of the stent with moderate extrinsic narrowing, unchanged since prior exam. ACT 112: Negative or not required by law. Electronically signed by: Diego Jim M.D. 05/31/2024 11:55 AM
--- NOTE | 2024-05-31 11:59 | CT Scan Report ---
CT head/brain wo con CLINICAL HISTORY: 78 years-old Male with tia sx. Acute stroke like symptoms TECHNIQUE: Multiple axial CT images of the head were obtained without contrast. A dose lowering tech nique was utilized adhering to the principles of ALARA. COMPARISON: CTA head of same day, head CT 05/14/2024 FINDINGS: No acute intracranial hemorrhage, midline shift, intracranial mass, hydrocephalus, territorial ischem ia or abnormal extra-axial collection. Involutional changes with chronic microvascular ischemic disea se. Few small areas of stable encephalomalacia again noted within the left cerebrum. The calvarium is intact. Small bilateral mastoid effusions. Postoperative changes of the paranasal sinuses. Unremark able soft tissues. Unchanged metallic density focus of the lateral left temporal scalp IMPRESSION: No acute intracranial abnormality. ACT 112: Negative or not required by law. The above report was generated using voice recognition software. It may contain grammatical, syntax o r spelling errors. Electronically signed by: Natanael Valladares M.D. 05/31/2024 11:57 AM
--- NOTE | 2024-05-31 11:59 | CT Scan Report ---
CTA ANGIOGRAPHY OF THE HEAD CLINICAL HISTORY: TIA sx COMPARISON STUDY: Head CT May 14, 2024. CTA of the head March 01, 2024. TECHNIQUE: Helical axial images of the head were obtained following uneventful intravenous administr ation of 120 cc of Optiray. Sagittal and coronal reconstructions were viewed as well as maximal inten sity projections on an independent 3-D workstation. Automated exposure control was utilized for the study. A dose lowering technique was utilized adhering to the principles of ALARA. FINDINGS: Please note that the head CT will be reported separately. There is no acute intracranial he morrhage, midline shift or mass effect. Ventricular system is unremarkable. There are no extra-axial collections. There is moderate calcified atherosclerotic plaque within the bilateral cavernous caroti ds with mild stenosis. There is no high-grade stenosis within the intracranial vessels. No vessel occ lusion is identified. No intracranial aneurysm is identified. The posterior circulation is also intac t. IMPRESSION: No large vessel occlusion. No intracranial aneurysm. ACT 112: Negative or not required by law. Electronically signed by: Diego Jim M.D. 05/31/2024 11:57 AM
[2024-05-31 12:05] LABS: Anion Gap 4 (3-11); Blood Urea Nitrogen 15 mg/dl (6-23); Calcium 9.2 mg/dl (8.6-10.3); Carbon Dioxide 31 mmol/L (21-32); Chloride 106 mmol/L (98-107); Creatinine Clr Calc Pharmacy 50.5 ml/min; Glucose 96 mg/dl (70-99(Fasting)); Potassium 3.6 mmol/L (3.5-5.1); Sodium 141 mmol/L (136-145)
[2024-05-31 12:06] LABS: Anisocytosis Present; Tear Drop Cells 1+
[2024-05-31 12:08] LABS: INR 1.2 (0.9-1.1); Partial Thromboplastin Ratio 1.2; Partial Thromboplastin Time 31 Seconds (21-31); Prothrombin Time 12.6 Seconds (9.0-12.0)
[2024-05-31 12:10] LABS: Alanine Aminotransferase < 3 U/L (7-52); Albumin Globulin Ratio 1.7 (0.9-2); Albumin Level 4.2 gm/dl (3.4-5.0); Alkaline Phosphatase 57 U/L (34-104); Aspartate Aminotransferase 12 U/L (13-39); Bilirubin,Total 0.5 mg/dl (0.2-1.0); Globulin 2.5 gm/dl (2.5-4.0); Magnesium 1.7 mg/dl (1.7-2.4); Total Protein 6.7 gm/dl (6.0-8.3)
[2024-05-31 12:12] LABS: Troponin I High Sensitivity 4.1 pg/ml (0-20)
[2024-05-31] MEDS: PANTOprazole 80 MG in DEXTROSE 5% 100 ML IV ONE (12:28)
[2024-05-31] MEDS: PANTOPRAZOLE BOLUS/DRIP IV STA (12:28)
[2024-05-31] MEDS: PANTOprazole 40 MG in DEXTROSE 5% MINI-B 100 ML IV SCH (12:28)
--- NOTE | 2024-05-31 13:21 | History & Physical Report ---
Date of Service May 31, 2024 Assessment & Plan (1) Stroke-like symptoms: Plan: Acute onset at 3pm on 05/30/24 according to patient's w/ h/o carotid stenosis s/p TCAR April 2024 - Admit to med tele - NPO with bedside swallow assessment --> advance to heart healthy - OOB w/ assistance - PT/OT eval - ASA 324mg PO x1 now and continue DAPT with ASA 81mg + Plavix 75mg daily - Increase atorvastatin to 40mg daily - Obtain hemoglobin a1c and lipid panel - Update TTE (last dated from 2021) - MRI brain w/o contrast - Pending results, consider neurology consult - Continue Eliquis in setting of afib (2) Fecal occult blood test positive: Plan: Intermittent in setting of DAPT + Eliquis - Pt underwent EGD and colonoscopy on 05/16/24 here at [facility], no significant source of bleeding identified - Did have findings of hematin and gastric friability noted on EGD - Increase PPI to 40mg daily - Monitor H&H - If hgb downtrends, consider re-consulting GI - Will require f/u with GI as outpatient for small bowel capsule study (3) Carotid stenosis: Plan: S/p TCAR 04/2024 - Continue ASA and Plavix as noted above (4) Paroxysmal atrial fibrillation: Plan: Chronic - Rate controlled, continue Eliquis Plan Chronic Medical Problems: 1. Depression/anxiety/PTSD- resume sertraline, buspirone, bupropion and trazodone 2. Thrombocytosis- resume hydroxyurea 3. COPD- resume inhalers 4. Lewy Body Dementia- resume sinemet 5. Gastritis- Increase PPI as noted above 6. Chronic cough- continue mucinex DVT ppx will be covered with resumption of Eliquis. AM labs have been ordered including cbc, cmp, and mag. Above plan of care has been d/w Dr. Hartley who has also seen and evaluated this patient. History of Present Illness Chief Complaint: Stroke like symptoms Primary Care Provider: Leonie Jackson NP Addison is a 78 yo M with a pmhx of COPD, chronic respiratory failure on 2L of supplemental O2, carotid artery stenosis s/p TCAR by Dr. Murray on 05/01/24, b/l BKA, LB dementia, and PAF on Eliquis who presents to the ER today accompanied by his w/ stroke-like symptoms that include right sided facial droop and difficulty with standing. Pt was transferred to the ER where he was a stroke- alert. Underwent CTH and CTA head and neck, all of which were negative and was seen by teleneurologist. His symptom onset per his was around 3pm on 05/30/24. Pt was deemed outside of the window for TPA. In addition to stroke symptoms, pt has been experiencing worsening cough and dark stools x2 days. His reports that he was hospitalized here last month for blood loss requiring transfusion. He was scoped upper and lower w/o evidence of acute bleeding, his Eliquis was held during that stay but then resumed on discharge and he was continued on DAPT given his recent carotid stent placement. He was to f/u as outpatient for small bowel capsule study but reports that she didn't get the information and he has not followed up with GI as an outpatient. Rectal exam performed by ED physician was heme positive. He was medicated with a dose of IV Protonix and a PPI gtt was ordered. His left carotid stent appears patent, there is reported moderate right plaque within the right carotid bifurcation w/o stenosis of the proximal right ICA. He is currently resting comfortably in ER litter, denies chest pain, dyspnea, abd pain, n/v/d. He was has been referred to hospital medicine team for admission. Allergies Allergy/AdvReac Type Severity Reaction Status Date / Time ibuprofen Allergy Intermediate HIVES Verified 05/31/24 14:15 adhesive tape Allergy Unknown Unknown - Unverified 05/31/24 14:15 On file w/ [facility] Home Medications Medication Instructions Recorded Confirmed Type acetaminophen 325 mg tablet 650 mg PO Q4 PRN PAIN/FEVER 06/22/22 05/31/24 History (Tylenol) albuterol sulfate 90 mcg/actuation 2 puff inhalation QID PRN 06/22/22 05/31/24 History aerosol inhaler Shortness Of Breath Or Wheezing apixaban 5 mg tablet (Eliquis) 5 mg PO AMHS 06/22/22 05/31/24 History bupropion HCl 300 mg 24 hr tablet, 300 mg PO QAM 06/22/22 05/31/24 History extended release cyclobenzaprine 10 mg tablet 10 mg PO AMHS PRN MUSCLE SPASMS 06/22/22 05/31/24 History finasteride 5 mg tablet 5 mg PO DAILY 06/22/22 05/31/24 History montelukast 10 mg tablet 10 mg PO DAILY 06/22/22 05/31/24 History prazosin 5 mg capsule 5 mg PO HS 06/22/22 05/31/24 History sertraline 100 mg tablet 200 mg PO DAILY 06/22/22 05/31/24 History tiotropium bromide 18 mcg capsule 1 cap inhalation QAM 06/22/22 05/31/24 History with inhalation device (Spiriva with HandiHaler) trazodone 150 mg tablet 150 mg PO HS 06/22/22 05/31/24 History folic acid 1 mg tablet 1 mg PO QAM #0 tabs 06/27/22 05/31/24 Rx clopidogrel 75 mg tablet (Plavix) 75 mg PO QAM 04/04/24 05/31/24 History hydroxyurea 500 mg capsule 500 mg PO DIRECTED 04/04/24 05/31/24 History atorvastatin 40 mg tablet 20 mg PO HS 05/14/24 05/31/24 History buspirone 5 mg tablet 0 mg PO TID 05/14/24 05/31/24 History cholecalciferol (vitamin D3) 25 50 mcg PO DAILY 05/14/24 05/31/24 History mcg (1,000 unit) capsule (Vitamin D3) diclofenac sodium 1 % topical gel 2 g topical QID PRN JOINT PAIN 05/14/24 05/31/24 History fluticasone 250 mcg-salmeterol 50 1 inh inhalation BID 05/14/24 05/31/24 History mcg/dose blistr powdr for inhalation guaifenesin 600 mg tablet, 600 mg PO BID PRN CONGESTION/COUGH 05/14/24 05/31/24 History extended release 12 hr (Mucinex) miconazole nitrate 2 % topical 1 applic topical BID PRN FUNGAL 05/14/24 05/31/24 History powder INFECTION spironolactone 25 mg tablet 25 mg PO DAILY 05/14/24 05/31/24 History albuterol sulfate 2.5 mg/3 mL 2.5 mg inhalation QID PRN 05/31/24 05/31/24 History (0.083 %) solution for nebulization Shortness Of Breath Or Wheezing aspirin 81 mg tablet,delayed 0 mg PO DAILY 05/31/24 05/31/24 History release carbidopa 25 mg-levodopa 100 mg 2 tab PO TID 05/31/24 05/31/24 History tablet docusate sodium 100 mg capsule 100 mg PO BID PRN Constipation 05/31/24 05/31/24 History food supplemt, lactose-reduced 1 ea PO DAILY 05/31/24 05/31/24 History pantoprazole 40 mg tablet,delayed 40 mg PO DAILY 05/31/24 05/31/24 History release pregabalin 150 mg capsule 150 mg PO BID 05/31/24 05/31/24 History Past Med/Surg History Problem List (Updated 05/31/24 @ 15:39 by Andi Thompson DO) Confusion (Acute) Acute GI bleeding (Acute) Anemia (Acute) Weakness (Acute) Stroke-like symptoms Bacterial conjunctivitis of both eyes Fecal occult blood test positive Thrombocytosis chronic Splenomegaly History of esophagitis Breath shortness (Acute) Weakness (Acute) Symptomatic anemia (Acute) Acute encephalopathy Chronic hypoxic respiratory failure, on home oxygen therapy H/O transcarotid artery revascularization (TCAR) Iron deficiency anemia Upper abdominal pain Chest wall pain Symptomatic anemia S/P vascular surgery Carotid stenosis Lewy body dementia Hematuria (Acute) 05/2022 Somnolence (Acute) Vitamin D deficiency Nephrolithiasis Anemia Esophagitis Hypoxemia 02/2022 Asthma exacerbation 02/2022 Weakness (Acute) COPD exacerbation 02/2022 Peripheral artery disease Atrial tachycardia HTN (hypertension) Paroxysmal atrial fibrillation Atrial fibrillation and flutter DVT prophylaxis Chronic bronchitis Obesity S/P hernia repair History of partial colectomy Prolonged QT interval hx of (ZXs=404 EKG 05/25/19); 03/2024 EKG does not show prolonged QT DDD (degenerative disc disease) (Acute) History of back surgery (Chronic) back surgery x3 at [facility] VIK on CPAP (Chronic) Noncompliant MRSA (methicillin resistant Staphylococcus aureus) (Chronic) negative nasal swab on 06/24/15 and 10/05/18 PTSD (post-traumatic stress disorder) (Chronic) do not wake patient by touching, wake patient by saying name Asthma (Chronic) BPH (benign prostatic hyperplasia) (Chronic) Medical History CKD (chronic kidney disease) (HFpEF) heart failure with preserved ejection fraction Obesity GERD (gastroesophageal reflux disease) Hyperlipidemia On home oxygen therapy 2 LPM Wheelchair dependent s/p B/L BKA Parkinson disease History of pneumonia Feb 29, 2024 hospitalized at [facility], resolved per pt's History of stroke 03/01/2024 at [facility] while in hospital, was mild per pt's , had facial drooping which has resolved Hx MRSA infection negative nasal swab on 06/24/15 and 10/05/18 PTSD (post-traumatic stress disorder) do not wake patient by touching, wake patient by saying name BPH (benign prostatic hyperplasia) Asthma well controlled per pt's Hx of sepsis 2019 VIK (obstructive sleep apnea) non compliant with cpap History of cardioversion Paroxysmal atrial fibrillation dx approx 2020 > Eliquis > no pacer > [facility] ; per 12/07/23 Cardio note, 'Afib with slow VR' Atrial tachycardia controlled per pt's ; per chart review, not mentioned in Cardio note HTN (hypertension) PAD (peripheral artery disease) COPD (chronic obstructive pulmonary disease) controlled per pt's Hx: UTI (urinary tract infection) none at present History of COVID-19 05/2022 Hx of Clostridium difficile infection 2011 Hx of sigmoidoscopy History of kidney stones passed on own Anemia follows with heme/onc Lewy body dementia Diverticular disease Surgical History History of tooth extraction History of colonoscopy History of back surgery L5-S1 Hx of hernia repair History of colon resection no colostomy > due to C diff 2011 S/P bilateral BKA (below knee amputation) right 2019, left 2020 > prosthetic bilat Status post ORIF of fracture of ankle 05/26/[address] Real [facility] with sedation. Family History Mother Colorectal cancer Father PAD (peripheral artery disease) Denies family history of Coronary heart disease Social History Smoking Status: Former smoker Tobacco Type: Smokeless Tobacco (Dip or Chew) Second Hand Exposure: No; Do You Dip or Chew Tobacco: No (quit approx 3 yrs ago); Hx Alcohol Use: No Hx Substance Use: No Preferred Language: Slovenian Communication Ability: Effective Communication Ability Comment: PT CONFUSED [employer] Prize Packer Required: No Beliefs That Will Affect Care: None marital status: Current Living Situation: Spouse Current Living Situation Comment: with and grandson current occupational status: 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 Denies fever, chills, fatigue, headache, nasal congestion, sore throat, cough, chest pain, shortness of breath, palpitations, orthopnea, PND, abdominal pain, n/v/d, constipation, dysuria, hematuria, frequency, back pain, joint pain or swelling, easy bruising or bleeding, skin lesions or rashes. Physical Exam 2 Physical Exam: GENERAL: 78 yo frail chronically ill appearing WM. No distress. EYES: EOMI. PERRLA. Anicteric. HENT: Moist mucous membranes. No cervical lymphadenopathy. LUNGS: Nonlabored. On O2. Crackles RLL with few expiratory wheezes. CARDIOVASCULAR: S1 S2 irreg ABDOMEN: Soft, non-tender and non-distended. BS normoactive x 4 quad. Previously well healed surgical scars noted. EXTREMITIES: No edema. Non-tender. s/p BKA NEUROLOGIC: A&O x3. Subtle R facial droop with mild RUE weakness compared to LUE. PSYCHIATRIC: Cooperative. Appropriate mood and affect. SKIN: Warm, dry, intact. No rashes or lesions. Results & Data Results & Data Vital Signs (Past 12 Hours) Vital Signs Temp Pulse Resp BP Pulse Ox O2 Del Method O2 Flow Rate 05/31/24 12:01 58 L 05/31/24 11:21 36.7 C 61 22 137/63 95 Nasal Cannula 2 Laboratory Results 05/31/24 11:11 05/31/24 11:[address] 05/31/24 11:18 CT head/brain wo con CLINICAL HISTORY: 78 years-old Male with tia sx. Acute stroke like symptoms TECHNIQUE: Multiple axial CT images of the head were obtained without contrast. A dose lowering technique was utilized adhering to the principles of ALARA. COMPARISON: CTA head of same day, head CT 05/14/2024 FINDINGS: No acute intracranial hemorrhage, midline shift, intracranial mass, hydrocephalus, territorial ischemia or abnormal extra-axial collection. Involutional changes with chronic microvascular ischemic disease. Few small areas of stable encephalomalacia again noted within the left cerebrum. The calvarium is intact. Small bilateral mastoid effusions. Postoperative changes of the paranasal sinuses. Unremarkable soft tissues. Unchanged metallic density focus of the lateral left temporal scalp IMPRESSION: No acute intracranial abnormality. ACT 112: Negative or not required by law. The above report was generated using voice recognition software. It may contain grammatical, syntax or spelling errors. Electronically signed by: Natanael Valladares M.D. 05/31/2024 11:57 AM Head CTA 05/31/24 11:18 CTA ANGIOGRAPHY OF THE HEAD CLINICAL HISTORY: TIA sx COMPARISON STUDY: Head CT May 14, 2024. CTA of the head March 01, 2024. TECHNIQUE: Helical axial images of the head were obtained following uneventful intravenous administration of 120 cc of Optiray. Sagittal and coronal reconstructions were viewed as well as maximal intensity projections on an independent 3-D workstation. Automated exposure control was utilized for the study. A dose lowering technique was utilized adhering to the principles of ALARA. FINDINGS: Please note that the head CT will be reported separately. There is no acute intracranial hemorrhage, midline shift or mass effect. Ventricular system is unremarkable. There are no extra-axial collections. There is moderate calcified atherosclerotic plaque within the bilateral cavernous carotids with mild stenosis. There is no high-grade stenosis within the intracranial vessels. No vessel occlusion is identified. No intracranial aneurysm is identified. The posterior circulation is also intact. IMPRESSION: No large vessel occlusion. No intracranial aneurysm. ACT 112: Negative or not required by law. Electronically signed by: Diego Jim M.D. 05/31/2024 11:57 AM Neck CTA 05/31/24 11:20 CT ANGIOGRAPHY OF THE NECK WITH CONTRAST CLINICAL HISTORY: tia sx COMPARISON STUDY: CTA of the neck May 14, 2024. Technique: CT angiography of the carotid and vertebral arteries was obtained using Optiray and 3D reconstruction on an independent workstation. NASCET criteria was utilized. Automated exposure control was utilized for the study. A dose lowering technique was utilized adhering to the principles of ALARA. CT DOSE: 1054.04 mGy.cm Findings: Visualized portions of the lung apices are unremarkable. There is no cervical lymphadenopathy. There are no cervical spine fractures. A stent within the left carotid bulb and proximal left internal carotid artery is patent and unchanged in appearance since CTA of May 14, 2024. Deformity of the proximal aspect of the stent with moderate extrinsic narrowing is unchanged. There is moderate plaque within the right carotid bifurcation without stenosis of the proximal right internal carotid artery. Vertebral arteries are patent. There is no dissection or aneurysm within the neck. IMPRESSION: 1. No change since CTA of May 14, 2024. 2. Patent left carotid stent, as described above. Deformity of the proximal aspect of the stent with moderate extrinsic narrowing, unchanged since prior exam. ACT 112: Negative or not required by law. Electronically signed by: Diego Jim M.D. 05/31/2024 11:55 AM Chest X-Ray 05/31/24 11:22 XR chest 1V portable HISTORY: 78 years-old Male neuro deficit, acute stroke suspected acute stroke like symptoms COMPARISON: 05/15/2019 TECHNIQUE: AP view of the chest FINDINGS: Cardiac silhouette is enlarged. No pneumothorax, pleural effusion, airspace consolidation or pulmonary edema. Bones appear grossly intact. IMPRESSION: Cardiomegaly without acute process. ACT 112: Negative or not required by law. The above report was generated using voice recognition software. It may contain grammatical, syntax or spelling errors. Electronically signed by: Natanael Valladares M.D. 05/31/2024 11:53 AM Code Status & VTE Plan Code Status Full code confirmed with pt and at bedside Supervising Physician Co-Signing Physician Notes I personally examined the patient and verified all weeks points of history and exam, discussed case, and agree with decision making with Angelina GOODWIN Not much meaningful HPI review of systems obtainable from patient. Right- sided facial droop started yesterday, right arm weakness. He denies sensory deficit more distal motor weakness. does most of the speaking and notes that he is fairly demented due to Lewy body dementia. Vitals noted, in general he is awake and alert pleasant slow to respond no distress. HEENT normocephalic atraumatic mucous membranes moist. Cardio is regular rate breathing unlabored no accessory muscle use. Neuro exam as above. Labs and diagnostics noted. Right-sided weaknessseems most consistent with cerebrovascular diseaseMRI ordered and pending. Given that his carotid stent appears to be open and he is on Eliquis making any cardioembolic very low probability based on treatment, I would strongly suspect intracranial atherosclerotic/small vessel disease as the culprit. Discussed with his unfortunately this probably leaves us with very few options given that he is already on what amounts almost maximal med management for this even post his carotid stenting. Continue dual antiplatelets and anticoagulation for now, escalate statin to moderate intensity from lower dosing, may need to enlist neurology for opinion if there are any other options available. PT/OT eval and treat. Highly likely to need some sort of placement, but it will depend on his functional status and his 's opinion of her ability to care for him at home. Otherwise as above. PG Care Time/CCT Total # of Minutes Spent Total Time Spent with Patient: Total time spent is greater than 50% in coordination of care (as documented) at patient's floor/unit and/or counseling patient: 80 minutes Coding Level of Care Code 73665 INT INP/OBS CARE 3/75MIN Diagnoses Stroke-like symptoms R29.90 Fecal occult blood test positive R19.5 Carotid stenosis I65.29 Paroxysmal atrial fibrillation I48.0
[2024-05-31] MEDS: ASPIRIN CHEW 324 MG PO STA (13:34)
[2024-05-31 13:59] LABS: HDL Cholesterol 34 mg/dl; Triglycerides 96 mg/dl (0-150); VLDL Cholesterol 19 mg/dl (0-30)
[2024-05-31 14:03] LABS: Chol HDL Ratio 2.7 (0-5); Cholesterol 93 mg/dl (0-200); LDL Cholesterol Calculated 40 mg/dl
--- NOTE | 2024-05-31 14:26 | Electrocardiogram Report ---
Test Reason : Blood Pressure : */* mmHG Vent. Rate : 61 BPM Atrial Rate : 61 BPM P-R Int : 190 ms QRS Dur : 80 ms QT Int : 432 ms P-R-T Axes : 41 17 47 degrees QTcB Int : 434 ms Normal sinus rhythm with occasional Premature atrial complexes Poor R wave progression, consider anterior WI vs. lead placement vs. LVH Abnormal ECG When compared with ECG of 15-May-2024 11:10, No significant change was found Confirmed by Chas Doshi ([id number]) on 05/31/2024 2:25:37 PM Referred By: Confirmed By: Chas Doshi
[2024-05-31] MEDS ORDERED: CYCLOBENZAPRINE HCL 10 MG TAB PO PRN (14:33)
[2024-05-31] MEDS ORDERED: MAGNESIUM HYDROXIDE SUSP 30 ML UDC PO PRN (14:33)
[2024-05-31] MEDS ORDERED: ALUMINUM/MAGNESIUM SUSP 30 ML UDC PO PRN (14:33)
[2024-05-31] MEDS: HYDROXYUREA 500 MG CAP PO SCH (15:36)
[2024-05-31] MEDS: ATORVASTATIN 40 MG TAB PO SCH (15:38)
[2024-05-31] MEDS: busPIRone 7.5 MG TAB PO SCH (15:38)
--- NOTE | 2024-05-31 15:58 | XCELERA ---
[id number] \\[email or web address]_PDF_[email or web address]\[id number]
--- NOTE | 2024-05-31 17:50 | Magnetic Resonance Report ---
MRI of the brain performed without IV contrast History: New onset confusion with history of dementia and Parkinson's disease. Comparison: Noncontrast head CT correlate 14 May 2024. Technique: Sagittal T1-weighted and axial T2-weighted, T2/FLAIR and diffusion-weighted with ADC map images of the brain were obtained without IV contrast. Findings: Susceptibility artifact left frontal temporal region corresponding to temporal scalp metallic density on prior CT. Additional motion limits portions of the exam. Diffusion weighted series demonstrates no signal abnormality. Brain parenchyma demonstrates mild volume loss left parietal lobe. Cortical increased T1 densities likely representing laminar necrosis. No appreciated chronic hemorrhage. Prominent bilateral basal ganglia perivascular spaces. Mild elements of increased T2 T2 flair britt radiata and centrum semiovale signal without mass effect. Ventricles and sulci are within normal limits for patient's age. No midline shift. Basal cisterns are patent. Major vascular flow voids are present. Intraorbital soft tissue's are within normal limits. Skull base and bony calvarial signal demonstrate likely retained fluid bilateral mastoid air cells. Impression: 1. Limitations secondary to susceptibility and motion artifact as described above with mild left parietal lobe encephalomalacia and no acute intracranial process. 2. Nonspecific white matter changes likely representing mild sequela from chronic microvascular disease. Please see above for details. Electronically signed by Amish Del Rosario 05-31-2024 5:48 PM
[2024-05-31 18:08] LABS: Hematocrit (blood only) 31.7 % (42.0-52.0); Hemoglobin 9.3 g/dl (14.0-18.0)
--- OUTSIDE RECORDS SUMMARY | 2024-05-31 20:41 | External Medical Summary | Continuity of Care Document ---
Author Name Unknown Organization [facility] [address] [facility] Address [address] [place], [place] [id number] Care Team Providers Care Corporate Secretary Name Role Phone Taylor Brannon Primary Care Physician [phone] Encounter [facility] RAMSEYBRUNO [id number] Date(s): 05/23/24 - 05/23/24 [facility] [address], [address] [place] [address] [phone] Encounter Diagnosis Internal carotid artery stent present(Discharge Diagnosis) - 05/23/24 Discharge Disposition: Home or Self Care Attending Physician: WINNIE Mandel Lynn Referring Physician: MD Brannon Catherine J Encounter Type: Clinic Allergies, Adverse Reactions, Alerts Substance Criticality Severity Reaction Reaction Severity Status Richarderik lenasergio Active Assessment and Plan Extracted from: Title:Clinical Document Author:WINNIE Mandel Lynn Date:05/23/24 [facility] OUTPATIENT NOTE Name: EDWARD RAMIREZ Patient Number: [id number] : 1945 Date of Service: 05/23/2024 Chief Complaint: _Follow-up after TCAR HPI: _Mr. Ramirez is an elderly male who presents to Dr. Murray's vascular surgery clinic today for a 2-week follow-up after undergoing uncomplicated left TCAR procedure due to severe left ICA stenosis. He unfortunately was readmitted to the hospital about 2 weeks after his procedure which delayed this office visit, due to symptomatic anemia. His DAPT in addition to his anticoagulation required for atrial fibrillation likely did contribute to this, however, his medical team continues to investigate causes, as no obvious GI bleeding was noted on scoping. He is apparently to undergo a video capsule test in the near future. He denies any complaints or concerns related to his procedure otherwise, including any problems with his surgical incision or his groin puncture, and denies any new strokelike symptoms. He did have a CTA performed at [facility] during his hospital stay which demonstrated widely patent left carotid stent. Current Home Meds: (Last Updated 05/23 15:10) apixaban (apixaban 5 mg oral tablet) 5 mg PO bid aspirin (aspirin 81 mg oral delayed release tablet) 81 mg PO Daily atorvastatin (atorvastatin 20 mg oral tablet) 20 mg PO Daily buPROPion (buPROPion 300 mg/24 hours (XL) oral tablet, extended release) 300 mg PO Daily busPIRone (busPIRone 7.5 mg oral tablet) 7.5 mg PO tid carbidopa-levodopa (carbidopa-levodopa 25 mg-100 mg oral tablet) 1 tab PO tid cholecalciferol (Vitamin D3 25 mcg (1000 intl units) oral capsule) 25 mcg PO Daily clopidogrel (clopidogrel 75 mg oral tablet) 75 mg PO Daily cyclobenzaprine (cyclobenzaprine 10 mg oral tablet) 10 mg PO bid PRN: as needed for spasm finasteride (finasteride 5 mg oral tablet) 5 mg PO Daily HAZARDOUS MEDICATION | tablet: green Women of childbearing age should not touch or handle broken tablets. Rehana Gordillo 04/02 14:59 fluticasone-salmeterol (fluticasone-salmeterol Diskus 250 mcg-50 mcg) 1 puff inhaled bid folic acid (folic acid 1 mg oral tablet) 1 mg PO Daily hydroxyurea (hydroxyurea 500 mg oral capsule) 80 mg/kg PO bid HAZARDOUS MEDICATION | tablet: green | capsule: green | suspension: yellow Rehana Gordillo 04/02 14:59 metoprolol (metoprolol succinate 25 mg oral tablet, extended release) 12.5 mg PO Daily montelukast (montelukast 10 mg oral tablet) 10 mg PO qPM pantoprazole (pantoprazole 40 mg oral delayed release tablet) 40 mg PO Daily prazosin (prazosin 5 mg oral capsule) 5 mg PO qhs pregabalin (pregabalin 100 mg oral capsule) 100 mg PO bid pregabalin (Lyrica 100 mg oral capsule) ONE CAPSULE PO BID FOR TWO DAYS, THEN INCREASE TO ONE CAPSULE TID sertraline (sertraline 200 mg oral capsule) 200 mg PO Daily spironolactone (spironolactone 25 mg oral tablet) 25 mg PO Daily HAZARDOUS MEDICATION | tablet: green | suspension: fidelia Kimball Roger Duy 04/02 14:59 tiotropium (tiotropium 2.5 mcg/inh inhalation aerosol) 2 inh inhaled Daily traZODone (traZODone 150 mg oral tablet) 150 mg PO qhs Allergies and Sensitivities: Motrin(hives) Past Medical History: Problems: Internal carotid artery stent present Bilateral carotid artery stenosis DVT (deep venous thrombosis) GERD (gastroesophageal reflux disease) Dyslipidemia BPH (benign prostatic hyperplasia) Chronic anemia Anxiety MDD (major depressive disorder) Atrial fibrillation Parkinson disease Asthma Phantom limb pain Below-knee amputation of right lower extremity Ankle arthritis Open fracture of right fibula Preop testing Visit for wound check Fracture of posterior malleolus of right tibia OBJECTIVE Vitals: Last Updated 05/23/24 15:11 Date Temp BP Location Pulse RR SpO2 Pain 05/23/24 92/48 Right Arm 63 92 04/02/24 138/60 Left Arm 73 96 04/02/24 98/56 Right Arm 0 Vital Signs are the last 3 documented. No Orthostatic Data Available Height and Weight: Last Updated 07/26/19 08:21 Date BMI Wt(kg) Wt(lb) Method Ht(cm) (ft-in) Method 07/26/19 37.91 97.07 214 Standing Scale 160.02 5-3 Patient stated 07/23/19 37.92 97.07 214 Estimated (Emergent use Only) 160 5-3 Standing Heights and Weights are the last 3 documented. Physical Exam Constitutional: In general patient is an obese but healthy-appearing well- nourished well-developed elderly male in no distress. He is in a wheelchair due to his bilateral amputations. His left neck supraclavicular incision is clean dry and intact. His groin puncture is well-healed. There is no significant hematoma noted. ASSESSMENT: _ PLAN: _ 1 ) _status post left TCAR Patient is overall doing well since his recent procedure from a vascular standpoint. We did discuss again with the patient and his family member that he is unable to DC his DAPT until at least 30 days after his procedure. At that time if it was felt to be prudent for him to stop one of his antiplatelet medications, we would prefer that it be the 81 mg aspirin that he DC, and remain on the Plavix if possible due to his recent stent. Patient expresses understanding of this. At this point would have the patient return here in 3 months for reevaluation with a carotid ultrasound prior to that office visit. Patient is agreeable to this plan. They will call with any other questions. Thank you for letting us participate in the care of this patient. Medications apixaban 5 mg oral tablet Start: 04/02/24 2:53:00 PM EST, 1 tab, PO, bid Start Date: 04/02/24 Status: Ordered Repeat number: 1 aspirin 81 mg oral delayed release tablet Start: 04/02/24 4:01:00 PM EST, 1 tab, PO, Daily, Disp# 30 tab, Refills: 1, Pharmacy: [facility] Start Date: 04/02/24 Status: Ordered Quantity: [...] Condition Confirmation Course Effective Dates Status Health at Informant Below-knee amputation of right lower extremity [...] Confirmed Active Phantom limb pain Confirmed Active Internal carotid artery stent present Confirmed Active Visit for wound check Confirmed Active Diagnosis Diagnosis Type Effective Dates Health Status inical Service Informant Internal carotid artery stent present Discharge Diagnosis 05/23/24 Procedures Procedure Date Related Diagnosis Body Site Status Left TCAR 05/01/24 Completed ORIF - Open reduction and in ternal fixation of fracture, Right Surgery 2019 Completed Tendon transfer, Right Ankle 2019 Completed Sigmoidectomy 08/2011 Completed Umbilical Hernia repair w/mesh 2009 Completed Spinal fusion and Laminectomy L5-S1 2007 Completed Vital Signs Most recent to oldest [Reference Range]: 1 Heart Rate 63 bpm (05/23/24 3:11 PM) Blood Pressure 92/48mmHg (05/23/24 3:11 PM) Cuff Pulse Pressure 44 mmHg (05/23/24 3:11 PM) BP Location # 1 Right Arm (05/23/24 3:11 PM) Social History Social History Type Response Smoking Status Former Smoker, quit > 1 yr Sex Male Sex Representation Male (finding) [facility] Outpt Note * WINNIE Mandel, Sabra: PERFORM Event Display: [facility] Outpt Note Authored Date: [id number] [facility] OUTPATIENT NOTE Name: EDWARD RAMIREZ Patient Number: [id number] : 1945 Date of Service: 05/23/2024 Chief Complaint: _Follow-up after TCAR HPI: _Mr. Ramirez is an elderly male who presents to Dr. Murray's vascular surgery clinic today for a 2-week follow-up after undergoing uncomplicated left TCAR procedure due to severe left ICA stenosis. He unfortunately was readmitted to the hospital about 2 weeks after his procedure which delayedthis office visit, due to symptomatic anemia. His DAPT in addition to his anticoagulation required for atrial fibrillation likely did contribute to this, however, his medical team continues to investigate causes, as no obvious GI bleeding was noted on scoping. He is apparently to undergo a video capsule test in the near future. He denies any complaints or concerns related to his procedure otherwise, including any problems with his surgical incision or his groin puncture, and denies any new strokelike symptoms. He did have a CTA performed at [facility] during his hospital stay which demonstrated widely patent left carotid stent. Current Home Meds: (Last Updated 05/23 15:10) apixaban (apixaban 5 mg oral tablet) 5 mg PO bid aspirin (aspirin 81 mg oral delayed release tablet) 81 mg PO Daily atorvastatin (atorvastatin 20 mg oral tablet) 20 mg PO Daily buPROPion (buPROPion 300 mg/24 hours (XL) oral tablet, extended release) 300 mg PO Daily busPIRone (busPIRone 7.5 mg oral tablet) 7.5 mg PO tid carbidopa-levodopa (carbidopa-levodopa 25 mg-100 mg oral tablet) 1 tab PO tid cholecalciferol (Vitamin D3 25 mcg (1000 intl units) oral capsule) 25 mcg PO Daily clopidogrel (clopidogrel 75 mg oral tablet) 75 mg PO Daily cyclobenzaprine (cyclobenzaprine 10 mg oral tablet) 10 mg PO bid PRN: as needed for spasm finasteride (finasteride 5 mg oral tablet) 5 mg PO Daily HAZARDOUS MEDICATION | tablet: green Womenof childbearing age should not touch or handle broken tablets. Rehana Gordillo 04/02 14:59 fluticasone-salmeterol (fluticasone-salmeterol Diskus 250 mcg-50 mcg) 1 puff inhaled bid folic acid (folic acid 1 mg oral tablet) 1 mg PO Daily hydroxyurea (hydroxyurea 500 mg oral capsule) 80 mg/kg PO bid HAZARDOUS MEDICATION | tablet: green | capsule: green | suspension: yellow Rehana Gordillo 04/02 14:59 metoprolol (metoprolol succinate 25 mg oral tablet, extended release) 12.5 mg PO Daily montelukast (montelukast 10 mg oral tablet) 10 mg PO qPM pantoprazole (pantoprazole 40 mg oral delayed release tablet) 40 mg PO Daily prazosin (prazosin 5 mg oral capsule) 5 mg PO qhs pregabalin (pregabalin 100 mg oral capsule) 100 mg PO bid pregabalin (Lyrica 100 mg oral capsule) ONE CAPSULE PO BID FOR TWO DAYS, THEN INCREASE TO ONE CAPSULE TID sertraline (sertraline 200 mg oral capsule) 200 mg PO Daily spironolactone (spironolactone 25 mg oral tablet) 25 mg PO Daily HAZARDOUS MEDICATION | tablet: green | suspension: teal Rehana Gordillo 04/02 14:59 tiotropium (tiotropium 2.5 mcg/inh inhalation aerosol) 2 inh inhaled Daily traZODone (traZODone 150 mg oral tablet) 150 mg PO qhs Allergies and Sensitivities: Motrin(hives) Past Medical History: Problems: Internal carotid artery stent present Bilateral carotid artery stenosis DVT (deep venous thrombosis) GERD (gastroesophageal reflux disease) Dyslipidemia BPH (benign prostatic hyperplasia) Chronic anemia Anxiety MDD (major depressive disorder) Atrial fibrillation Parkinson disease Asthma Phantom limb pain Below-knee amputation of right lower extremity Ankle arthritis Open fracture of right fibula Preop testing Visit for wound check Fracture of posterior malleolus of right tibia OBJECTIVE Vitals: Last Updated 05/23/24 15:11 Date Temp BP Location Pulse RR SpO2 Pain 05/23/24 92/48 Right Arm 63 92 04/02/24 138/60 Left Arm 73 96 04/02/24 98/56 Right Arm 0 Vital Signs are the last 3 documented. No Orthostatic Data Available Height and Weight: Last Updated 07/26/19 08:21 Date BMI Wt(kg) Wt(lb) Method Ht(cm) (ft-in) Method 07/26/19 37.91 97.07 214 Standing Scale 160.02 5-3 Patient stated 07/23/19 37.92 97.07 214 Estimated (Emergent use Only) 160 5-3 Standing Heights and Weights are the last 3 documented. Physical Exam Constitutional: In general patient is an obese but healthy-appearing well- nourished well-developed elderly male in no distress. He is in a wheelchair due to his bilateral amputations. His left neck supraclavicular incision is clean dry and intact. His groin puncture is well-healed. There is no significant hematoma noted. ASSESSMENT: _ PLAN: _ 1 ) _status post left TCAR Patient is overall doing well since his recent procedure from a vascular standpoint. We did discussagain with the patient and his family member that he is unable to DC his DAPT until at least 30 days after his procedure. At that time if it was felt to be prudent for him to stop one of his antiplatelet medications, we would prefer that it be the 81 mg aspirin that he DC, and remain on the Plavix if possible due to his recent stent. Patient expresses understanding of this. At this point would have the patient return here in 3 months for reevaluation with a carotid ultrasound prior to that office visit. Patient is agreeable to this plan. They will call with any other questions. Thank you for letting us participate in the care of this patient. Electronic Signature on File CC: Taylor Brannon MD [id number] [facility] [id number] * Electronically Reviewed/Signed by: Sabra Mandel PA-C Author Signature Dt/Tm:05/23/2024 04:02 PM [facility] [place] [address] [facility], [address] [place]. [address] LM Patient Care team information Care Team Personnel Name: MD Brannon Catherine J Position: Referring Member Role: Primary Care Provider Address: [address] [place] [address] Telecom: [phone] Name: Jessica Ramirez Kyle Position: Pharmacist Member Role: Pharmacy [facility] Address: [address] [place] [id number] [place] Care Team Related Persons Name: LEATHA YORK Name: KAYLAN RAMIREZ Insurance Providers Guarantor name: EDWARD RAMIREZ Health Plan Information #: 2 Payer: [facility] Member Number: [id number] Policy Number: NA Group Number: NA Health Plan Information #: 1 Payer: MEDICARE Member Number: [id number] Policy Number: NA Group Number: [id number]"
[2024-05-31] MEDS: APIXABAN 5 MG TABLET PO SCH (22:00)
[2024-05-31] MEDS: CARBIDOPA/LEVODOPA 25/100MG TAB PO SCH (22:01)
[2024-05-31] MEDS: UMECLIDINIUM BROMIDE 62.5MCG/BLISTER 7 PUFFS/INHALER INH SCH (22:02)
[2024-05-31] MEDS: guaiFENesin 600 MG TABCR PO SCH (22:03)
[2024-05-31] MEDS: FLUTICASONE/VILANTEROL 200/25MCG 14 PUFFS/INHALER INH SCH (22:03)
[2024-05-31] MEDS: PRAZOSIN HCL 1 MG CAP PO SCH (22:04)
[2024-05-31] MEDS: traZODone HCL 50 MG TAB PO SCH (22:05)
[2024-06-01 07:24] LABS: Calcium 8.9 mg/dl (8.6-10.3); Creatinine Clr Calc Pharmacy 49.7 ml/min; Potassium 3.5 mmol/L (3.5-5.1)
[2024-06-01 07:37] LABS: Basophils # (auto) 0.03 K/uL (0.00-0.20); Basophils % (auto) 0.5 %; Eosinophils # (auto) 0.08 K/uL (0.00-0.50); Eosinophils % (auto) 1.4 %; Hematocrit (blood only) 28.7 % (42.0-52.0); Hemoglobin 8.2 g/dl (14.0-18.0); Immature Granulocytes # (auto) 0.13 K/uL (0.01-0.20); Immature Granulocytes % (auto) 2.2 %; Lymphocytes # (auto) 0.92 K/uL (1.20-3.40); Lymphocytes % (auto) 15.8 %; Mean Corpuscular Hemoglobin 26.9 pg (25.0-34.0); Mean Corpuscular Hgb Conc 28.6 g/dL (32.0-36.0); Mean Corpuscular Volume 94.1 fL (80.0-100.0); Mean Platelet Volume 10.6 fL (9.4-12.4); Monocytes # (auto) 0.66 K/uL (0.11-0.59); Monocytes % (auto) 11.3 %; Neutrophils # (auto) 4.02 K/uL (1.40-6.50); Neutrophils % (auto) 68.8 %; Platelet Count 243 K/uL (130-400); RDW Standard Deviation 71.7 fL (36.4-46.3); Red Blood Count 3.05 M/uL (4.70-6.10); White Blood Count 5.84 K/ul (4.8-10.8)
[2024-06-01 07:59] LABS: Anisocytosis Present; Ovalocytes 1+; Polychromasia 1+; Tear Drop Cells 1+
--- NOTE | 2024-06-01 10:19 | Hospitalist Progress Note ---
Date of Service June 01, 2024 Assessment & Plan (1) Stroke-like symptoms: (2) Fecal occult blood test positive: (3) Carotid stenosis: (4) Paroxysmal atrial fibrillation: Plan Stroke-like symptoms: Acute onset at 3pm on 05/30/24 according to patient's w/ h/o carotid stenosis s/p TCAR April 2024 - Admit to med tele - NPO with bedside swallow assessment --> advance to heart healthy - OOB w/ assistance - PT/OT eval - ASA 324mg PO x1 now and continue DAPT with ASA 81mg + Plavix 75mg daily - Increase atorvastatin to 40mg daily - Obtain hemoglobin a1c and lipid panel - ECHO- mild pulm HTN, EF 55-60%, neg interatrial shunt - MRI brain w/o contrast: negative ofr acute pathology - will request neurology evaluation - Continue Eliquis in setting of afib Fecal occult blood test positive: Intermittent in setting of DAPT + Eliquis (per vascular surgery pt is to take aspirin for 30 days post op) - Pt underwent EGD and colonoscopy on 05/16/24 here at [facility], no significant source of bleeding identified - Did have findings of hematin and gastric friability noted on EGD - Increase PPI to 40mg daily - Hgb 9.4 -> 8.2 (previously 8.2 in April 2024) - If hgb downtrends further, will re-consulting GI - Will require f/u with GI as outpatient for small bowel capsule study Carotid stenosis: S/p TCAR 04/2024 - cont DAPT Paroxysmal atrial fibrillation: Chronic - Rate controlled, continue Eliquis Chronic Medical Problems: 1. Depression/anxiety/PTSD- resume sertraline, buspirone, bupropion and trazodone 2. Thrombocytosis- resume hydroxyurea 3. COPD- resume inhalers 4. Lewy Body Dementia- resume sinemet 5. Gastritis- Increase PPI as noted above 6. Chronic cough- continue mucinex DVT ppx will be covered with resumption of Eliquis. 06/01: pt's at bedside Admission and Anticipated Discharge Date Admission Date: May 31, 2024 Subjective No acute events overnight Currently no new complaints Review of Systems Review of Systems: comprehensive ROS unremarkable Physical Exam Physical Exam: Gen: sitting in bedside chair comfortable HEENT: NC/AT, MMM, anicteric Lungs: CTAB CVS: s1s2nl, RRR Abd: protuberant, soft, active bowel sounds Ext: b/l LE amputations Neuro: awake, alert, right facial drooping noted, mild weakness of RUE extremity Results & Data Results & Data Vital Signs (Past 12 Hours) Vital Signs Temp Pulse Pulse Resp BP Pulse Ox O2 Del Method 06/01/24 07:48 36.7 C 55 L 19 99/56 L 97 Nasal Cannula 06/01/24 03:22 36.4 C L 54 L 17 110/62 95 Nasal Cannula 05/31/24 23:40 36.4 C L 54 L 17 119/67 98 Nasal Cannula 05/31/24 22:31 51 L O2 Flow Rate 06/01/24 07:48 2 06/01/24 03:22 2 05/31/24 23:40 2 05/31/24 22:31 PG Care Time/CCT Total # of Minutes Spent Total Time Spent with Patient: Total time spent is greater than 50% in coordination of care (as documented) at patient's floor/unit and/or counseling patient: Coding Level of Care Code 67411 SUB INP/OBS CARE 2/35MIN Diagnoses Stroke-like symptoms R29.90 Fecal occult blood test positive R19.5 Carotid stenosis I65.29 Paroxysmal atrial fibrillation I48.0
[2024-06-01] MEDS: ASPIRIN 81 MG ECTAB PO SCH (11:28)
[2024-06-01] MEDS: buPROPion XL 300 MG TABCR PO SCH (11:29)
[2024-06-01] MEDS: CLOPIDOGREL BISULFATE 75 MG TAB PO SCH (11:29)
[2024-06-01] MEDS: FOLIC ACID 1 MG TAB PO SCH (11:29)
[2024-06-01] MEDS: PANTOprazole 40 MG TAB PO SCH (11:30)
[2024-06-01] MEDS: SERTRALINE HCL 100 MG TABLET PO SCH (11:30)
[2024-06-01] MEDS: MONTELUKAST SODIUM 10 MG TABLET PO SCH (11:30)
[2024-06-01] MEDS: SPIRONOLACTONE 25 MG TAB PO SCH (11:30)
[2024-06-01] MEDS ORDERED: PHA DELIRIUM CONSULT PRN (18:21)
[2024-06-02 07:51] LABS: Hematocrit (blood only) 30.5 % (42.0-52.0); Hemoglobin 8.9 g/dl (14.0-18.0); Mean Corpuscular Hemoglobin 27.1 pg (25.0-34.0); Mean Corpuscular Hgb Conc 29.2 g/dL (32.0-36.0); Mean Platelet Volume 11.1 fL (9.4-12.4); Platelet Count 367 K/uL (130-400); RDW Coefficient of Variation 20.1 % (11.5-14.5); RDW Standard Deviation 68.7 fL (36.4-46.3); Red Blood Count 3.28 M/uL (4.70-6.10); White Blood Count 7.45 K/ul (4.8-10.8)
[2024-06-02 08:03] LABS: BUN Creatinine Ratio 14.3 (10-20); Creatinine Clr Calc Pharmacy 62.3 ml/min; Magnesium 1.7 mg/dl (1.7-2.4); Potassium 3.9 mmol/L (3.5-5.1)
--- NOTE | 2024-06-02 09:53 | Neurology Consultation ---
Date of Consultation June 02, 2024 Assessment & Plan (1) Stroke-like symptoms: (2) H/O transcarotid artery revascularization (TCAR): (3) Cerebrovascular disease: (4) Chronic arterial ischemic stroke, multifocal, anterior circulation: (5) Lewy body dementia: Plan 78-year-old male with a history of Lewy body dementia, recent left transcarotid artery revascularization, multifocal chronic lacunar infarcts, chronic cerebrovascular disease, presenting with a recurrence of right lower facial droop. His left carotid stent is patent. No hemorrhage or acute process on CT of the head. The brain MRI is essentially nondiagnostic for the left cerebral hemisphere, however, due to metallic artifact within the left temporal scalp. A small acute or subacute left hemispheric infarct cannot be excluded. It is notable that he had presented to the [facility] on March 05, 2024 with right facial droop as well, prior to discovery of his left carotid stenosis. Although I think his current presentation is likely due to recrudescence of symptoms related to his chronic multifocal left hemispheric infarcts, I am unable to completely exclude a small subacute or acute infarct within the left cerebral hemisphere given the significant metallic artifact on his MRI evaluation. (His CT of the head does adequately exclude a hemorrhage.) Patient may continue with aspirin 81 mg/day, Plavix 75 mg/day, Eliquis 5 mg twice daily, atorvastatin 40 mg/day. May continue with carbidopa levodopa 2 tablets 3 times per day as ordered. He appears to be clinically stable and improved this morning. I do not have any further immediate recommendations. [facility] I believe he follows with a [facility] affiliated neurologist for his Lewy body disease. He should not require additional outpatient follow-up in my practice. History of Present Illness Reason for Consultation: right facial droop Requesting Physician: Natanael Attending Physician: Mindy Santoyo MD History of Present Illness The patient is a 78-year-old left handed male, [place] , with a history of Lewy body dementia. I had seen him in consultation in May 2022 in the context of agitation and hallucinations. He was admitted to [facility] February 29, 2024 with right facial droop in the context of chronic microvascular ischemic disease and chronic lacunar infarcts. He was found to have a severe stenosis within the distal left common carotid artery and proximal left internal carotid artery. He was subsequently evaluated by Dr. Murray and underwent left TCAR on May 01, 2024 and was discharged the following day. He presented to the [facility] emergency department on May 14, 2024 with weakness, confusion, symptomatic anemia and was discharged on May 17, 2024. He presented to the emergency department on May 31, 2024 with weakness, lethargy, dark stools. His spouse had noticed right facial droop and difficulty standing as well. A CT of the head was negative for hemorrhage or acute process. CTA of the head was unremarkable. CTA of the neck revealed a patent left carotid stent with unchanged deformity of the proximal aspect of the stent with moderate extrinsic narrowing, unchanged compared with previous study done May 14, 2024. I did independently review these images. There are several chronic lacunar infarcts within the right basal ganglia. There are several chronic infarcts within the left frontal white matter and a chronic infarct within the left parietal cortex. There is cerebral atrophy. He did have a brain MRI completed on May 31 as well. The study is severely limited due to metallic artifact which essentially obscures the majority of the left cerebral hemisphere with the exception of the occipital and posterior parietal lobe. Although there does not appear to be evidence of acute stroke or hemorrhage involving the right cerebral hemisphere. Imaging of the left cerebral hemisphere is nondiagnostic. This morning, the patient does not have any specific complaints. He does have subtle weakness for the right lower facial musculature. His voice is hoarse which he indicates is chronic. He denies any difficulty swallowing. He does not report any weakness of the arms. He is post bilateral below the knee amputations. He denies headache or vision loss. Allergies Allergy/AdvReac Type Severity Reaction Status Date / Time ibuprofen Allergy Intermediate HIVES Verified 05/31/24 14:15 adhesive tape Allergy Unknown Unknown - Unverified 05/31/24 14:15 On file / [facility] Home Medications Medication Instructions Recorded Confirmed Type acetaminophen 325 mg tablet 650 mg PO Q4 PRN PAIN/FEVER 06/22/22 05/31/24 History (Tylenol) albuterol sulfate 90 mcg/actuation 2 puff inhalation QID PRN 06/22/22 05/31/24 History aerosol inhaler Shortness Of Breath Or Wheezing apixaban 5 mg tablet (Eliquis) 5 mg PO AMHS 06/22/22 05/31/24 History bupropion HCl 300 mg 24 hr tablet, 300 mg PO QAM 06/22/22 05/31/24 History extended release cyclobenzaprine 10 mg tablet 10 mg PO AMHS PRN MUSCLE SPASMS 06/22/22 05/31/24 History finasteride 5 mg tablet 5 mg PO DAILY 06/22/22 05/31/24 History montelukast 10 mg tablet 10 mg PO DAILY 06/22/22 05/31/24 History prazosin 5 mg capsule 5 mg PO HS 06/22/22 05/31/24 History sertraline 100 mg tablet 200 mg PO DAILY 06/22/22 05/31/24 History tiotropium bromide 18 mcg capsule 1 cap inhalation QAM 06/22/22 05/31/24 History with inhalation device (Spiriva with HandiHaler) trazodone 150 mg tablet 150 mg PO HS 06/22/22 05/31/24 History folic acid 1 mg tablet 1 mg PO QAM #0 tabs 06/27/22 05/31/24 Rx clopidogrel 75 mg tablet (Plavix) 75 mg PO QAM 04/04/24 05/31/24 History hydroxyurea 500 mg capsule 500 mg PO DIRECTED 04/04/24 05/31/24 History atorvastatin 40 mg tablet 20 mg PO HS 05/14/24 05/31/24 History buspirone 5 mg tablet 0 mg PO TID 05/14/24 05/31/24 History cholecalciferol (vitamin D3) 25 50 mcg PO DAILY 05/14/24 05/31/24 History mcg (1,000 unit) capsule (Vitamin D3) diclofenac sodium 1 % topical gel 2 g topical QID PRN JOINT PAIN 05/14/24 05/31/24 History fluticasone 250 mcg-salmeterol 50 1 inh inhalation BID 05/14/24 05/31/24 History mcg/dose blistr powdr for inhalation guaifenesin 600 mg tablet, 600 mg PO BID PRN CONGESTION/COUGH 05/14/24 05/31/24 History extended release 12 hr (Mucinex) miconazole nitrate 2 % topical 1 applic topical BID PRN FUNGAL 05/14/24 05/31/24 History powder INFECTION spironolactone 25 mg tablet 25 mg PO DAILY 05/14/24 05/31/24 History albuterol sulfate 2.5 mg/3 mL 2.5 mg inhalation QID PRN 05/31/24 05/31/24 History (0.083 %) solution for nebulization Shortness Of Breath Or Wheezing aspirin 81 mg tablet,delayed 0 mg PO DAILY 05/31/24 05/31/24 History release carbidopa 25 mg-levodopa 100 mg 2 tab PO TID 05/31/24 05/31/24 History tablet docusate sodium 100 mg capsule 100 mg PO BID PRN Constipation 05/31/24 05/31/24 History food supplemt, lactose-reduced 1 ea PO DAILY 05/31/24 05/31/24 History pantoprazole 40 mg tablet,delayed 40 mg PO DAILY 05/31/24 05/31/24 History release pregabalin 150 mg capsule 150 mg PO BID 05/31/24 05/31/24 History Patient History Medical History CKD (chronic kidney disease) (HFpEF) heart failure with preserved ejection fraction Obesity GERD (gastroesophageal reflux disease) Hyperlipidemia On home oxygen therapy 2 LPM Wheelchair dependent s/p B/L BKA Parkinson disease History of pneumonia Feb 29, 2024 hospitalized at [facility], resolved per pt's History of stroke 03/01/2024 at [facility] while in hospital, was mild per pt's , had facial drooping which has resolved Hx MRSA infection negative nasal swab on 06/24/15 and 10/05/18 PTSD (post-traumatic stress disorder) do not wake patient by touching, wake patient by saying name BPH (benign prostatic hyperplasia) Asthma well controlled per pt's Hx of sepsis 2019 VIK (obstructive sleep apnea) non compliant with cpap History of cardioversion Paroxysmal atrial fibrillation dx approx 2020 > Eliquis > no pacer > [facility] ; per 12/07/23 Cardio note, 'Afib with slow VR' Atrial tachycardia controlled per pt's ; per chart review, not mentioned in Cardio note HTN (hypertension) PAD (peripheral artery disease) COPD (chronic obstructive pulmonary disease) controlled per pt's Hx: UTI (urinary tract infection) none at present History of COVID-19 05/2022 Hx of Clostridium difficile infection 2011 Hx of sigmoidoscopy History of kidney stones passed on own Anemia follows with heme/onc Lewy body dementia Diverticular disease Surgical History History of tooth extraction History of colonoscopy History of back surgery L5-S1 Hx of hernia repair History of colon resection no colostomy > due to C diff 2011 S/P bilateral BKA (below knee amputation) right 2019, left 2020 > prosthetic bilat Status post ORIF of fracture of ankle 05/26/[address] Frahan DIEZ with sedation. Family History Mother Colorectal cancer Father PAD (peripheral artery disease) Denies family history of Coronary heart disease Social History Smoking Status: Former smoker Tobacco Type: Smokeless Tobacco (Dip or Chew) Second Hand Exposure: No; Do You Dip or Chew Tobacco: No (quit approx 3 yrs ago); Hx Alcohol Use: No Hx Substance Use: No Preferred Language: Norwegian Communication Ability: Effective Communication Ability Comment: PT CONFUSED Clear Coat Sprayer Required: No Beliefs That Will Affect Care: None marital status: Current Living Situation: Spouse Current Living Situation Comment: with and grandson current occupational status: 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; 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 the [employer] during How many Children do You have: 2 Feels Safe at Home: Yes Safety Concerns: Feels Safe At This Time Assistive Devices: CPAP, Mechanical Lift, Nebulizer, Oxygen - Continuous, Prosthesis, Walker and Wheelchair Assistive Devices Comment: pt has grab bar as well Review of Systems Constitutional: + weakness; no fever and no chills Eyes: no blind spots and no diplopia Ear, Nose, Mouth, Throat: no hearing loss Respiratory: + wheezing Cardiovascular: no chest pain and no palpitations Gastrointestinal: no nausea and no vomiting Genitourinary: no dysuria Musculoskeletal: no myalgia Integumentary: no rash and no lesions Neurologic: as per Subjective / HPI Psychiatric: no depression and no anxiety Hematologic / Lymphatic: no easy bleeding and no easy bruising Exam (Neuro) Constitutional: no acute distress Eyes: normal visual branham by confrontation, PERRL and EOM intact bilaterally; no nystagmus Neurologic: Oriented to:: Person and Place; negative Time Cognitive Function: negative Cognitive Speed Memory: Remote Intact; negative Short Term Intact Attention: Span Intact Speech Fluency: Slowed Speech Aphasia: negative Aphasia Fund of Knowledge: Past History and Vocabulary; negative Current Events Cranial Nerves: Normal II, III, IV, , V, VIII, IX, X, XI and XII; Abnorm VII (Mild right lower facial droop noted.) Motor Strength: Normal Upper Extremities Motor Tone: Normal Upper Extremities Rigidity: None Muscle Bulk/Involuntary Movements: negative Pill Rolling Tremor, Rest Tremor (Arm) or Head Tremor Sensation: Light Touch Intact and Pain/Temperature Intact Coordination: Finger-Nose Abnormal Deep Tendon Reflexes: Rt Triceps: 2+, Lt Triceps: 2+, Rt Biceps: 2+, Lt Biceps: 2+, Rt Brachioradialis: 2+, Lt Brachioradialis: 2+, Rt Patellar: 2+ and Lt Patellar: 2+ Details: Processing speed is reduced. He is unable to perform [id number] with eyes closed although is able to touch targets with his fingers with eyes open. He was able to correctly identify objects placed in his hands with eyes closed. Bilateral below the knee amputations Results & Data Vital Signs (Past 12 Hours) Vital Signs Temp Pulse Pulse Resp BP Pulse Ox O2 Del Method 06/02/24 08:06 36.5 C 62 18 119/77 98 Nasal Cannula 06/02/24 04:06 36.5 C 80 16 133/61 95 Nasal Cannula 06/01/24 23:45 36.6 C 82 16 134/65 94 Nasal Cannula 06/01/24 22:11 63 O2 Flow Rate 06/02/24 08:06 3 06/02/24 04:06 3 06/01/24 23:45 3 06/01/24 22:11 Laboratory Results WBC 7.45, hemoglobin 8.9, hematocrit 30.5, platelet count 367, sodium 140, potassium 3.9, BUN 13, creatinine 0.91, glucose 87, calcium 9.0, magnesium 1.7, triglycerides 96, cholesterol 93, LDL 40, VLDL 19, HDL 34 Diagnostic Findings An echocardiogram completed May 31, 2024 revealed mild pulmonary hypertension, normal left ventricular systolic function and wall motion, no interatrial shunt with injection of contrast. An electrocardiogram revealed normal sinus rhythm with occasional PACs, 61 bpm. Coding Level of Care Code 54837 INT INP/OBS CARE 3/75MIN Diagnoses Stroke-like symptoms R29.90 H/O transcarotid artery revascularization (TCAR) Z98.62 Cerebrovascular disease I67.9 Chronic arterial ischemic stroke, multifocal, anterior circulation Z86.73 Lewy body dementia G31.83; F02.80 Time Spent (min) 80 Comment Total time includes patient contact, chart review, counseling, note preparation
--- NOTE | 2024-06-02 10:31 | Hospitalist Progress Note ---
Date of Service June 02, 2024 Assessment & Plan (1) Stroke-like symptoms: (2) Fecal occult blood test positive: (3) Carotid stenosis: (4) Paroxysmal atrial fibrillation: Plan Stroke-like symptoms: Acute onset at 3pm on 05/30/24 according to patient's w/ h/o carotid stenosis s/p TCAR April 2024 - Admit to med tele - NPO with bedside swallow assessment --> advance to heart healthy - OOB w/ assistance - PT/OT eval - ASA 324mg PO x1 now and continue DAPT with ASA 81mg + Plavix 75mg daily - Increase atorvastatin to 40mg daily - Obtain hemoglobin a1c and lipid panel - ECHO- mild pulm HTN, EF 55-60%, neg interatrial shunt - MRI brain w/o contrast: negative for acute pathology - neurology recs appreciated, since pt has improved since yesterday, no further changes to management at this time - US carotids ordered as there is some deforminty of the proximal aspect of the stent with moderate extrinsic narrowing (unchanged from 05/14/24) - Continue Eliquis in setting of afib Fecal occult blood test positive: Intermittent in setting of DAPT + Eliquis (per vascular surgery pt is to take aspirin for 30 days post op) - Pt underwent EGD and colonoscopy on 05/16/24 here at [facility], no significant source of bleeding identified - Did have findings of hematin and gastric friability noted on EGD - Increase PPI to 40mg daily - Hgb 9.4 > 8.2 > 8.9 (previously 8.2 in April 2024) - If hgb downtrends further, will re-consulting GI - Will require f/u with GI as outpatient for small bowel capsule study Carotid stenosis: S/p TCAR 04/2024 - cont DAPT Paroxysmal atrial fibrillation: Chronic - Rate controlled, continue Eliquis Right sided abdominal wall pain - pt notes hardness around the right sided of the abdomen causing pain - prior CT abd / pelvis reviewed with radiology, pt had some fluid collection in 07/2012, likely fibrosis from this event - monitor at this time Chronic Medical Problems: 1. Depression/anxiety/PTSD- resume sertraline, buspirone, bupropion and trazodone 2. Thrombocytosis- resume hydroxyurea 3. COPD- resume inhalers 4. Lewy Body Dementia- resume sinemet 5. Gastritis- Increase PPI as noted above 6. Chronic cough- continue mucinex DVT ppx will be covered with resumption of Eliquis. 06/01: pt's at bedside 06/02: pt's at bedside Admission and Anticipated Discharge Date Admission Date: May 31, 2024 Subjective No acute events overnight Currently no new complaints Review of Systems Review of Systems: comprehensive ROS unremarkable Physical Exam Physical Exam: Gen: sitting in bedside chair comfortable HEENT: NC/AT, MMM, anicteric Lungs: CTAB CVS: [id number], RRR Abd: protuberant, soft, active bowel sounds Ext: b/l LE amputations Neuro: awake, alert, right facial drooping noted, mild weakness of RUE extremity Results & Data Results & Data Vital Signs (Past 12 Hours) Vital Signs Temp Pulse Resp BP Pulse Ox O2 Del Method O2 Flow Rate 06/02/24 08:06 36.5 C 62 18 119/77 98 Nasal Cannula 3 06/02/24 04:06 36.5 C 80 16 133/61 95 Nasal Cannula 3 06/01/24 23:45 36.6 C 82 16 134/65 94 Nasal Cannula 3 PG Care Time/CCT Total # of Minutes Spent Total Time Spent with Patient: Total time spent is greater than 50% in coordination of care (as documented) at patient's floor/unit and/or counseling patient: Coding Level of Care Code 89758 SUB INP/OBS CARE 2/35MIN Diagnoses Stroke-like symptoms R29.90 Fecal occult blood test positive R19.5 Carotid stenosis I65.29 Paroxysmal atrial fibrillation I48.0
[2024-06-02] MEDS: ACETAMINOPHEN 325 MG TAB PO PRN (16:12)
--- NOTE | 2024-06-02 16:47 | Ultrasound Report ---
DUPLEX ULTRASOUND EXAMINATION OF THE CAROTID ARTERIES. COMPARISON: none . HISTORY / INDICATIONS: ICA stent TECHNIQUE: Bilateral common carotid arteries, extracranial internal and external carotid arteries are evaluated with knight-scale imaging, color Doppler, and spectral analysis according to a standard protocol. ICA-CCA ratios are calculated with registered representative peak-systolic velocities and recorded. Vertebral arteries are evaluated in one segment to evaluate for patency and character of flow. Comparison with previous evaluation is performed when available. Unless otherwise specified, all velocities are measured in cm/sec. Carotid stenosis is reported according to validated velocity parameters, similar to NASCET criteria. FINDINGS: Right Carotid: . Velocity measurements as follows: Internal Carotid Artery 91 cm/sec. ICA to CCA ratio: 0.68. Left Carotid: .Velocity measurements as follows: Internal Carotid Artery 91 cm/sec. ICA to CCA ratio: 0.72. There is a proximal left ICA stent. Extensive calcified plaque is seen about both carotid bulbs, which appears greater on the right compared to the left. Antegrade flow was seen in both vertebral arteries. IMPRESSION: Patent proximal left ICA stent. No evidence for hemodynamically significant stenosis, by velocity criteria, of either internal carotid artery. There is extensive calcified plaque about both carotid bulbs. Electronically signed by Edgar Snow 06-02-2024 4:46 PM
--- NOTE | 2024-06-02 17:31 | Electrocardiogram Report ---
Test Reason : Blood Pressure : */* mmHG Vent. Rate : 61 BPM Atrial Rate : 61 BPM P-R Int : 180 ms QRS Dur : 82 ms QT Int : 438 ms P-R-T Axes : 19 48 71 degrees QTcB Int : 440 ms Normal sinus rhythm Normal ECG When compared with ECG of 31-May-2024 11:12, No significant change was found Confirmed by Hernán Hare ([id number]) on 06/02/2024 5:31:15 PM Referred By: REFERRED SELF Confirmed By: Hernán Hare
[2024-06-03 08:00] LABS: Hematocrit (blood only) 32.3 % (42.0-52.0); Hemoglobin 9.3 g/dl (14.0-18.0); Mean Corpuscular Hemoglobin 26.6 pg (25.0-34.0); Mean Corpuscular Hgb Conc 28.8 g/dL (32.0-36.0); Mean Corpuscular Volume 92.6 fL (80.0-100.0); Mean Platelet Volume 10.4 fL (9.4-12.4); Platelet Count 455 K/uL (130-400); RDW Coefficient of Variation 19.9 % (11.5-14.5); RDW Standard Deviation 65.8 fL (36.4-46.3); Red Blood Count 3.49 M/uL (4.70-6.10); White Blood Count 8.81 K/ul (4.8-10.8)
[2024-06-03 09:39] LABS: Calcium 9.4 mg/dl (8.6-10.3); Magnesium 1.7 mg/dl (1.7-2.4); Potassium 4.2 mmol/L (3.5-5.1)
[2024-06-03 09:45] LABS: BUN Creatinine Ratio 9.9 (10-20); Creatinine Clr Calc Pharmacy 56.3 ml/min; Phosphorus 2.8 mg/dl (2.5-4.9)
--- NOTE | 2024-06-03 09:48 | Hospitalist Progress Note ---
Date of Service June 03, 2024 Assessment & Plan (1) Stroke-like symptoms: (2) Fecal occult blood test positive: (3) Carotid stenosis: (4) Paroxysmal atrial fibrillation: Plan Stroke-like symptoms: Acute onset at 3pm on 05/30/24 according to patient's w/ h/o carotid stenosis s/p TCAR April 2024 - Admit to med tele - NPO with bedside swallow assessment --> advance to heart healthy - OOB w/ assistance - PT/OT eval - ASA 324mg PO x1 now and continue DAPT with ASA 81mg + Plavix 75mg daily - Increase atorvastatin to 40mg daily - Obtain hemoglobin a1c and lipid panel - ECHO- mild pulm HTN, EF 55-60%, neg interatrial shunt - MRI brain w/o contrast: negative for acute pathology - neurology recs appreciated, since pt has improved since yesterday, no further changes to management at this time - US carotids ordered as there is some deforminty of the proximal aspect of the stent with moderate extrinsic narrowing (unchanged from 05/14/24) - Continue Eliquis in setting of afib - Carotid ultrasound result was discussed with patient's family Fecal occult blood test positive: Intermittent in setting of DAPT + Eliquis (per vascular surgery pt is to take aspirin for 30 days post op) - Pt underwent EGD and colonoscopy on 05/16/24 here at [facility], no significant source of bleeding identified - Did have findings of hematin and gastric friability noted on EGD - Increase PPI to 40mg daily - Hgb 9.4 > 8.2 > 8.9 (previously 8.2 in April 2024) - If hgb downtrends further, will re-consulting GI - Will require f/u with GI as outpatient for small bowel capsule study - For 69 patient had a large BM yesterday according to nurse he is refusing to eat today because of full stomach that he reports discussed with staff await for patient to express hunger to feed him and avoid force-feeding Carotid stenosis: S/p TCAR 04/2024 - cont DAPT Paroxysmal atrial fibrillation: Chronic - Rate controlled, continue Eliquis Right sided abdominal wall pain - pt notes hardness around the right sided of the abdomen causing pain - prior CT abd / pelvis reviewed with radiology, pt had some fluid collection in 07/2012, likely fibrosis from this event - monitor at this time Chronic Medical Problems: 1. Depression/anxiety/PTSD- resume sertraline, buspirone, bupropion and trazodone 2. Thrombocytosis- resume hydroxyurea 3. COPD- resume inhalers 4. Lewy Body Dementia- resume sinemet 5. Gastritis- Increase PPI as noted above 6. Chronic cough- continue mucinex DVT ppx will be covered with resumption of Eliquis. 06/01: pt's at bedside 06/02: pt's at bedside 06/03: Discussed with patient's Susan at cell phone [phone] she would like to take him to acute rehab Admission and Anticipated Discharge Date Admission Date: May 31, 2024 Supervising Physician Co-Signing Physician Notes I personally examined the patient and verified all weeks points of history and exam, discussed case, and agree with decision making with Angelina GOODWIN Not much meaningful HPI review of systems obtainable from patient. Right- sided facial droop started yesterday, right arm weakness. He denies sensory deficit more distal motor weakness. does most of the speaking and notes that he is fairly demented due to Lewy body dementia. Vitals noted, in general he is awake and alert pleasant slow to respond no distress. HEENT normocephalic atraumatic mucous membranes moist. Cardio is regular rate breathing unlabored no accessory muscle use. Neuro exam as above. Labs and diagnostics noted. Right-sided weaknessseems most consistent with cerebrovascular diseaseMRI ordered and pending. Given that his carotid stent appears to be open and he is on Eliquis making any cardioembolic very low probability based on treatment, I would strongly suspect intracranial atherosclerotic/small vessel disease as the culprit. Discussed with his unfortunately this probably leaves us with very few options given that he is already on what amounts almost maximal med management for this even post his carotid stenting. Continue dual antiplatelets and anticoagulation for now, escalate statin to moderate intensity from lower dosing, may need to enlist neurology for opinion if there are any other options available. PT/OT eval and treat. Highly likely to need some sort of placement, but it will depend on his functional status and his 's opinion of her ability to care for him at home. Otherwise as above. Subjective No acute events overnight Currently no new complaints Review of Systems Review of Systems: comprehensive ROS unremarkable According to patient's she thinks he is confused he does not know where he is he has history of Lewy body dementia Physical Exam Physical Exam: Gen: sitting in bedside chair comfortable patient follows simple commands HEENT: NC/AT, MMM, anicteric Lungs: CTAB CVS: s1s2nl, RRR Abd: protuberant, soft, active bowel sounds Ext: b/l LE amputations patient has prosthesis but he has not wore them Neuro: awake, alert, right facial drooping noted, mild weakness of RUE extremity Results & Data Results & Data Vital Signs (Past 12 Hours) Vital Signs Temp Pulse Pulse Resp BP BP Pulse Ox 06/03/24 07:35 36.6 C 60 14 123/72 99 06/03/24 07:00 62 06/03/24 02:39 65 18 141/80 H 95 06/02/24 22:33 36.8 C 60 18 132/70 95 06/02/24 22:01 60 O2 Del Method O2 Flow Rate 06/03/24 07:35 Nasal Cannula 06/03/24 07:00 06/03/24 02:39 Nasal Cannula 3 06/02/24 22:33 Nasal Cannula 3 06/02/24 22:01 Diagnostic Findings [place], [place] [phone] Ultrasound Report Patient: EDWARD RAMIREZ Jr Admit Date: 05/31/24 MR#: [id number] Address1: [address] [place] [address] Acct ID:[id number] Address2: Date: 1945 [facility] Zip: [place] [address] Age: 78 Location: 2W Sex: M Room/Bed: [facility] Att Phy: Mindy Santoyo MD Diagnosis: TIA Pat Phy: Leonie Jackson NP Service Date: 06/02/24 Fam Phy: Interpreting Phy: Edgar Snow DOAdmit Phy: Rita Holly PA-C Ordering Phy: Mindy Santoyo MD cc: ~ DUPLEX ULTRASOUND EXAMINATION OF THE CAROTID ARTERIES. COMPARISON: none . HISTORY / INDICATIONS: ICA stent TECHNIQUE: Bilateral common carotid arteries, extracranial internal and external carotid arteries are evaluated with knight-scale imaging, color Doppler, and spectral analysis according to a standard protocol. ICA-CCA ratios are calculated with desk representative peak-systolic velocities and recorded. Vertebral arteries are evaluated in one segment to evaluate for patency and character of flow. Comparison with previous evaluation is performed when available. Unless otherwise specified, all velocities are measured in cm/sec. Carotid stenosis is reported according to validated velocity parameters, similar to NASCET criteria. FINDINGS: Right Carotid: . Velocity measurements as follows: Internal Carotid Artery 91 cm/sec. ICA to CCA ratio: 0.68. Left Carotid: .Velocity measurements as follows: Internal Carotid Artery 91 cm/sec. ICA to CCA ratio: 0.72. There is a proximal left ICA stent. Extensive calcified plaque is seen about both carotid bulbs, which appears greater on the right compared to the left. Antegrade flow was seen in both vertebral arteries. IMPRESSION: Patent proximal left ICA stent. No evidence for hemodynamically significant stenosis, by velocity criteria, of either internal carotid artery. There is extensive calcified plaque about both carotid bulbs. PG Care Time/CCT Total # of Minutes Spent Total Time Spent with Patient: Total time spent is greater than 50% in coordination of care (as documented) at patient's floor/unit and/or counseling patient: Coding Level of Care Code 68636 SUB INP/OBS CARE 3/50MIN Diagnoses Stroke-like symptoms R29.90 Fecal occult blood test positive R19.5 Carotid stenosis I65.29 Paroxysmal atrial fibrillation I48.0
[2024-06-03] MEDS ORDERED: PHA DELIRIUM CONSULT PRN (10:21)
[2024-06-04 06:21] LABS: Hematocrit (blood only) 32.5 % (42.0-52.0); Hemoglobin 9.9 g/dl (14.0-18.0); Mean Corpuscular Hemoglobin 27.3 pg (25.0-34.0); Mean Corpuscular Hgb Conc 30.5 g/dL (32.0-36.0); Mean Corpuscular Volume 89.8 fL (80.0-100.0); Mean Platelet Volume 10.5 fL (9.4-12.4); Platelet Count 605 K/uL (130-400); RDW Coefficient of Variation 19.2 % (11.5-14.5); RDW Standard Deviation 63.7 fL (36.4-46.3); Red Blood Count 3.62 M/uL (4.70-6.10); White Blood Count 10.96 K/ul (4.8-10.8)
[2024-06-04 06:55] LABS: Anion Gap 8 (3-11); BUN Creatinine Ratio 11.9 (10-20); Blood Urea Nitrogen 12 mg/dl (6-23); Calcium 9.7 mg/dl (8.6-10.3); Carbon Dioxide 26 mmol/L (21-32); Chloride 105 mmol/L (98-107); Creatinine Clr Calc Pharmacy 56.1 ml/min; Glucose 99 mg/dl (70-99(Fasting)); Potassium 3.9 mmol/L (3.5-5.1); Sodium 139 mmol/L (136-145)
[2024-06-04 06:56] LABS: Alanine Aminotransferase < 3 U/L (7-52); Albumin Globulin Ratio 1.6 (0.9-2); Albumin Level 4.3 gm/dl (3.4-5.0); Alkaline Phosphatase 57 U/L (34-104); Aspartate Aminotransferase 14 U/L (13-39); Bilirubin,Total 0.7 mg/dl (0.2-1.0); Globulin 2.7 gm/dl (2.5-4.0)
--- NOTE | 2024-06-04 14:06 | Hospitalist Progress Note ---
Date of Service June 04, 2024 Assessment & Plan (1) Stroke-like symptoms: (2) Fecal occult blood test positive: (3) Carotid stenosis: (4) Paroxysmal atrial fibrillation: Plan 78-year-old male with past medical history of Lewy body dementia, recent left transcarotid artery revascularization, multifocal chronic lacunar infarcts, chronic cerebrovascular disease presents with recurrence of right lower facial droop. #Suspected CVA #History of carotid stenosis status post TCAR on May 01, 2024 #Lewy body dementia Neurology saw the patient, reviewed the MRI and were unable to completely exclude a small subacute or acute infarct within the left cerebral hemisphere given the significant metallic artifact on his MRI -Neurology has recommended continue with aspirin 81 mg daily, Plavix 75 mg daily, apixaban 5 mg twice daily and atorvastatin 40 mg daily Acute onset at 3pm on 05/30/24 according to patient's w/ h/o carotid stenosis s/p TCAR April 2024 ECHO- mild pulm HTN, EF 55-60%, neg interatrial shunt Carotid Dopplers show patent proximal left ICA stent. No evidence for hemodynamically significant stenosis. There is extensive calcified plaque both carotid bulbs. Neurology has recommended continuing carbidopa/levodopa Continue BuSpar, trazodone, Wellbutrin XL, Zoloft and prazosin #Fecal occult blood test positive Intermittent in setting of DAPT + Eliquis (per vascular surgery pt is to take aspirin for 30 days post op) - Pt underwent EGD and colonoscopy on 05/16/24 here at [facility], no significant source of bleeding identified H&H is stable Monitor intermittently #paroxysmal atrial fibrillation: Chronic - Rate controlled, continue Eliquis #Chronic thrombocytosis Continue hydroxyurea #Chronic hypoxic respiratory failure Continue home O2: 2 L nasal cannula Continue inhalers #Suspected conjunctivitis Start Cipro eyedrops CODE STATUS: Discussed with at bedside: As per , patient would not want intubation or CPR or resuscitation. CODE STATUS changed to DNR/DNI DVT prophylaxis: Patient on apixaban Discharge planning to acute rehab when bed available Care plan discussed with patient, nursing staff and updated bedside Admission and Anticipated Discharge Date Admission Date: May 31, 2024 Subjective Patient seen and examined at bedside confirms that patient has dementia As per , patient uses oxygen at home 2 L via nasal cannula and is currently at his base line oxygen requirements Patient is smiling, denies any chest pain or shortness of breath Patient complaining of redness in eye, is concerned that he has conjunctivitis Physical Exam Physical Exam: General: No acute distress Psych: Awake and alert, oriented to self and person HEENT: Anicteric sclera, moist oral mucosa, erythema noted in both eyes CVS: Regular rate and rhythm Lungs: Bilateral air entry, no wheezing noted Abdomen: Soft, nontender, no rebound, no guarding Ext: No lower extremity edema, no calf tenderness Results & Data Results & Data Vital Signs (Past 12 Hours) Vital Signs Temp Pulse Pulse Resp BP BP Pulse Ox 06/04/24 13:50 72 06/04/24 11:26 36.8 C 68 18 143/81 H 95 06/04/24 10:06 06/04/24 08:26 36.4 C 68 20 156/94 H 92 06/04/24 05:56 59 L 06/04/24 04:08 36.5 C 73 18 132/74 95 O2 Del Method O2 Flow Rate 06/04/24 13:50 06/04/24 11:26 Room Air 06/04/24 10:06 Nasal Cannula 2 06/04/24 08:26 Nasal Cannula 2 06/04/24 05:56 06/04/24 04:08 Room Air Laboratory Results Laboratory Results - last 24 hr 06/04/24 05:46 WBC 10.96 H RBC 3.62 L Hgb 9.9 L Hct 32.5 L MCV 89.8 MCH 27.3 MCHC 30.5 L RDW Std Deviation 63.7 H RDW Coeff of Hector 19.2 H Plt Count 605 H MPV 10.5 Sodium 139 Potassium 3.9 Chloride 105 Carbon Dioxide 26 Anion Gap 8 BUN 12 Creatinine 1.01 Est Cr Clr Drug Dosing 56.1 eGFR 77.08 BUN/Creatinine Ratio 11.9 Glucose 99 Calcium 9.7 Total Bilirubin 0.7 AST 14 ALT < 3 L Alkaline Phosphatase 57 Total Protein 7.0 Albumin 4.3 Globulin 2.7 Albumin/Globulin Ratio 1.6 PG Care Time/CCT Total # of Minutes Spent Total Time Spent with Patient: Total time spent is greater than 50% in coordination of care (as documented) at patient's floor/unit and/or counseling patient: Coding Level of Care Code 84915 SUB INP/OBS CARE 3/50MIN Diagnoses Stroke-like symptoms R29.90 Fecal occult blood test positive R19.5 Carotid stenosis I65.29 Paroxysmal atrial fibrillation I48.0
[2024-06-04] MEDS: ONDANSETRON INJ 2 MG/ML 2 ML VIAL IV PRN (14:31)
[2024-06-04] MEDS: CIPROFLOXACIN HCL 0.3% OP SOLN 2.5 ML BTL OP ONE (14:31)
[2024-06-04] MEDS: CIPROFLOXACIN HCL 0.3% OP SOLN 2.5 ML BTL OP SCH (16:40)
[2024-06-04] MEDS: ALBUTEROL HFA 8 GM INHALER INH PRN (21:32)
--- NOTE | 2024-06-05 11:23 | XRay Report ---
XR abdomen 2V w PA chest CLINICAL HISTORY: nausea COMPARISON STUDY: 05/31/2024 FINDINGS: CHEST: Heart size and pulmonary vasculature are normal. No effusion, consolidation, or pneumothorax. ABDOMEN: There is moderate retained stool. No bowel obstruction seen. No gross free air. IMPRESSION: No acute findings. ACT 112: Negative or not required by law. Electronically signed by: Win Yung M.D. 06/05/2024 11:22 AM
[2024-06-05 12:04] LABS: Basophils # (auto) 0.05 K/uL (0.00-0.20); Basophils % (auto) 0.4 %; Eosinophils # (auto) 0.06 K/uL (0.00-0.50); Eosinophils % (auto) 0.4 %; Hematocrit (blood only) 34.6 % (42.0-52.0); Hemoglobin 10.1 g/dl (14.0-18.0); Immature Granulocytes # (auto) 0.16 K/uL (0.01-0.20); Immature Granulocytes % (auto) 1.2 %; Lymphocytes # (auto) 0.65 K/uL (1.20-3.40); Lymphocytes % (auto) 4.9 %; Mean Corpuscular Hemoglobin 26.4 pg (25.0-34.0); Mean Corpuscular Hgb Conc 29.2 g/dL (32.0-36.0); Mean Corpuscular Volume 90.3 fL (80.0-100.0); Mean Platelet Volume 10.1 fL (9.4-12.4); Monocytes # (auto) 0.65 K/uL (0.11-0.59); Monocytes % (auto) 4.9 %; Neutrophils # (auto) 11.81 K/uL (1.40-6.50); Neutrophils % (auto) 88.2 %; Platelet Count 739 K/uL (130-400); RDW Coefficient of Variation 19.3 % (11.5-14.5); RDW Standard Deviation 63.2 fL (36.4-46.3); Red Blood Count 3.83 M/uL (4.70-6.10); White Blood Count 13.38 K/ul (4.8-10.8)
[2024-06-05 12:23] LABS: BUN Creatinine Ratio 16.5 (10-20); Calcium 9.7 mg/dl (8.6-10.3); Magnesium 1.8 mg/dl (1.7-2.4); Potassium 4.2 mmol/L (3.5-5.1)
[2024-06-05 12:37] LABS: Appearance Urine Clear (Clear); Bacteria Urine Automated None Seen (None Seen); Bilirubin Urine Negative (Negative); Blood Urine Negative (Negative); Color Urine Dark Yellow; Glucose Urine UA Negative (Negative); Ketones Urine 1+ (Negative); Leukocyte Esterase Urine 2+ (Negative); Nitrite Urine Negative (Negative); Protein Urine Negative (Negative); RBC Urine Automated 0-2 /hpf (0-2); Specific Gravity Urine 1.035 (1.000-1.030); Urobilinogen Urine Negative (Negative); WBC Urine Automated 21-50 /hpf (0-5)
--- NOTE | 2024-06-05 12:46 | Hospitalist Progress Note ---
Date of Service June 05, 2024 Assessment & Plan (1) Stroke-like symptoms: (2) Fecal occult blood test positive: (3) Carotid stenosis: (4) Paroxysmal atrial fibrillation: Plan 78-year-old male with past medical history of Lewy body dementia, recent left transcarotid artery revascularization, multifocal chronic lacunar infarcts, chronic cerebrovascular disease presents with recurrence of right lower facial droop. #Suspected CVA #History of carotid stenosis status post TCAR on May 01, 2024 #Lewy body dementia Neurology saw the patient, reviewed the MRI and were unable to completely exclude a small subacute or acute infarct within the left cerebral hemisphere given the significant metallic artifact on his MRI -Neurology has recommended continue with aspirin 81 mg daily, Plavix 75 mg daily, apixaban 5 mg twice daily and atorvastatin 40 mg daily Acute onset at 3pm on 05/30/24 according to patient's w/ h/o carotid stenosis s/p TCAR April 2024 ECHO- mild pulm HTN, EF 55-60%, neg interatrial shunt Carotid Dopplers show patent proximal left ICA stent. No evidence for hemodynamically significant stenosis. There is extensive calcified plaque both carotid bulbs. Neurology has recommended continuing carbidopa/levodopa Continue BuSpar, trazodone, Wellbutrin XL, Zoloft and prazosin #Fecal occult blood test positive Intermittent in setting of DAPT + Eliquis (per vascular surgery pt is to take aspirin for 30 days post op) - Pt underwent EGD and colonoscopy on 05/16/24 here at [facility], no significant source of bleeding identified H&H is stable Monitor intermittently #paroxysmal atrial fibrillation: Chronic - Rate controlled, continue Eliquis #Chronic thrombocytosis Continue hydroxyurea #Chronic hypoxic respiratory failure Continue home O2: 2 L nasal cannula Continue inhalers #Constipation Abdominal x-ray with moderate retained stool, no bowel obstruction, no gross severe. Patient agreeable to laxatives: Mag citrate x 1 dose, Dulcolax suppository [place] x 1 dose Senna nightly and MiraLAX daily #Leukocytosis Patient is afebrile, clinically stable Urine analysis reviewed and concentrated sample with possibility of UTI. Could also be from dehydration Chest x-ray with no acute abnormalities Follow-up urine culture, in the meantime start ceftriaxone 2 g IV daily Hold spironolactone and gentle IV fluid hydration #Suspected conjunctivitis Continue Cipro eyedrops CODE STATUS: DNR/DNI DVT prophylaxis: Patient on apixaban Discharge planning to acute rehab likely tomorrow if medically stable Care plan discussed with patient, nursing staff and updated bedside Admission and Anticipated Discharge Date Admission Date: May 31, 2024 Subjective Patient seen and examined. Milady at bedside. Patient has been complaining of nausea, feels belly is bloated. He denies any fever, chills, urinary symptoms. He does report decreased appetite due to nausea. He had abdominal x- ray done which was reviewed with patient and family which shows constipation. Patient agreeing to take laxatives. wants nausea to improve prior to sending him to acute rehab Physical Exam Physical Exam: General: No acute distress Psych: Awake and alert, oriented to self and person HEENT: Anicteric sclera, moist oral mucosa CVS: Regular rate and rhythm Lungs: Bilateral air entry, no wheezing noted Abdomen: Soft, nontender, no rebound, no guarding Ext: No lower extremity edema, prosthesis noted Results & Data Results & Data Vital Signs (Past 12 Hours) Vital Signs Temp Pulse Pulse Resp BP Pulse Ox O2 Del Method 06/05/24 11:34 36.9 C 72 18 138/81 96 Nasal Cannula 06/05/24 09:31 76 24 93 Nasal Cannula 06/05/24 07:52 36.9 C 71 18 122/62 95 Nasal Cannula 06/05/24 07:30 Nasal Cannula 06/05/24 06:14 96 Nasal Cannula 06/05/24 05:03 18 98 Nasal Cannula 06/05/24 03:41 36.8 C 72 20 131/75 97 Nasal Cannula O2 Flow Rate 06/05/24 11:34 2 06/05/24 09:31 4 06/05/24 07:52 2 06/05/24 07:30 2 06/05/24 06:14 2 06/05/24 05:03 4 06/05/24 03:41 2 Laboratory Results Laboratory Results - last 24 hr 06/05/24 06/05/24 11:38 Unknown WBC 13.38 H RBC 3.83 L Hgb 10.1 L Hct 34.6 L MCV 90.3 MCH 26.4 MCHC 29.2 L RDW Std Deviation 63.2 H RDW Coeff of Hector 19.3 H Plt Count 739 H MPV 10.1 Immature Gran % (Auto) 1.2 Neut % (Auto) 88.2 Lymph % (Auto) 4.9 [place] % (Auto) 4.9 Eos % (Auto) 0.4 Baso % (Auto) 0.4 Neut # (Auto) 11.81 H Lymph # (Auto) 0.65 L [place] # (Auto) 0.65 H Eos # (Auto) 0.06 Baso # (Auto) 0.05 Immature Gran # (Auto) 0.16 Sodium 139 Potassium 4.2 Chloride 105 Carbon Dioxide 26 Anion Gap 8 BUN 21 Creatinine 1.27 Est Cr Clr Drug Dosing 44.0 eGFR 58.19 BUN/Creatinine Ratio 16.5 Glucose 106 H Calcium 9.7 Magnesium 1.8 Urine Color Dark Yellow Urine Appearance Clear Urine pH 5.0 Ur Specific [place] 1.035 H Urine Protein Negative Urine Glucose (UA) Negative Urine Ketones 1+ H Urine Blood Negative Urine Nitrite Negative Urine Bilirubin Negative Urine Urobilinogen Negative Ur Leukocyte Esterase 2+ H Urine WBC (Auto) 21-50 H Urine RBC (Auto) 0-2 U Hyaline Cast (Auto) 6-10 H U Epithel Cells (Auto) 3-5 H Urine Bacteria (Auto) None Seen Diagnostic Findings Chest/Abdomen X-ray 06/05/24 10:09 XR abdomen 2V w PA chest CLINICAL HISTORY: nausea COMPARISON STUDY: 05/31/2024 FINDINGS: CHEST: Heart size and pulmonary vasculature are normal. No effusion, consolidation, or pneumothorax. ABDOMEN: There is moderate retained stool. No bowel obstruction seen. No gross free air. IMPRESSION: No acute findings. ACT 112: Negative or not required by law. Electronically signed by: Win Yung M.D. 06/05/2024 11:22 AM PG Care Time/CCT Total # of Minutes Spent Total Time Spent with Patient: Total time spent is greater than 50% in coordination of care (as documented) at patient's floor/unit and/or counseling patient: Coding Level of Care Code 35107 SUB INP/OBS CARE 2/35MIN Diagnoses Stroke-like symptoms R29.90 Fecal occult blood test positive R19.5 Carotid stenosis I65.29 Paroxysmal atrial fibrillation I48.0
[2024-06-05] MEDS: LACTATED RINGER'S 500 ML IV ONE (14:00)
[2024-06-05] MEDS: POLYETHYLENE (MIRALAX) 17 GM PACK PO SCH (14:02)
[2024-06-05] MEDS: cefTRIAXone SODIUM 2,000 MG/50 ML BAG IV STA (14:04)
[2024-06-05] MEDS: MAGNESIUM CITRATE 296 ML/BTL PO STA (14:52)
[2024-06-05] MEDS: ARTIFICIAL TEARS OPB SCH (16:05)
[2024-06-05] MEDS: bisacodyL 10 MG SUPP PR STA ×2 (18:12)
[2024-06-05] MEDS: LACTATED RINGER'S 1,000 ML IV SCH (18:18)
[2024-06-05] MEDS: SENNA 8.6 MG TAB PO SCH (21:02)
[2024-06-05] MEDS: MAGNESIUM OXIDE 400 MG TAB PO SCH (21:05)
[2024-06-05] MEDS: ALBUT/IPRATROP 3MG/0.5MG NEB 3 ML VIAL NEB PRN (22:12)
[2024-06-05] MEDS: ALBUT/IPRATROP 3MG/0.5MG NEB 3 ML VIAL ONE (22:30)
[2024-06-06 07:41] LABS: Basophils # (auto) 0.05 K/uL (0.00-0.20); Basophils % (auto) 0.4 %; Eosinophils # (auto) 0.07 K/uL (0.00-0.50); Eosinophils % (auto) 0.6 %; Hematocrit (blood only) 30.7 % (42.0-52.0); Immature Granulocytes # (auto) 0.11 K/uL (0.01-0.20); Lymphocytes # (auto) 0.59 K/uL (1.20-3.40); Lymphocytes % (auto) 5.1 %; Mean Corpuscular Hemoglobin 26.6 pg (25.0-34.0); Mean Corpuscular Hgb Conc 29.3 g/dL (32.0-36.0); Mean Corpuscular Volume 90.8 fL (80.0-100.0); Mean Platelet Volume 10.2 fL (9.4-12.4); Monocytes # (auto) 0.54 K/uL (0.11-0.59); Monocytes % (auto) 4.7 %; Neutrophils # (auto) 10.12 K/uL (1.40-6.50); Neutrophils % (auto) 88.2 %; Platelet Count 710 K/uL (130-400); RDW Coefficient of Variation 19.2 % (11.5-14.5); RDW Standard Deviation 63.2 fL (36.4-46.3); Red Blood Count 3.38 M/uL (4.70-6.10); White Blood Count 11.48 K/ul (4.8-10.8)
[2024-06-06 08:06] LABS: BUN Creatinine Ratio 20.9 (10-20); Calcium 9.1 mg/dl (8.6-10.3); Creatinine Clr Calc Pharmacy 49.4 ml/min; Potassium 3.9 mmol/L (3.5-5.1)
[2024-06-06] MEDS: cefTRIAXone SODIUM 2,000 MG/50 ML BAG IV SCH (08:34)
[2024-06-06] MEDS: SENNA 8.6 MG TAB PO SCH (10:06)
[2024-06-06] MEDS: bisacodyL 10 MG SUPP PR SCH (10:06)
--- NOTE | 2024-06-06 12:41 | Hospitalist Progress Note ---
Date of Service June 06, 2024 Assessment & Plan (1) Stroke-like symptoms: (2) Fecal occult blood test positive: (3) Carotid stenosis: (4) Paroxysmal atrial fibrillation: Plan 78-year-old male with past medical history of Lewy body dementia, recent left transcarotid artery revascularization, multifocal chronic lacunar infarcts, chronic cerebrovascular disease presents with recurrence of right lower facial droop. #Suspected CVA #History of carotid stenosis status post TCAR on May 01, 2024 #Lewy body dementia Neurology saw the patient, reviewed the MRI and were unable to completely exclude a small subacute or acute infarct within the left cerebral hemisphere given the significant metallic artifact on his MRI -Neurology has recommended continue with aspirin 81 mg daily, Plavix 75 mg daily, apixaban 5 mg twice daily and atorvastatin 40 mg daily Acute onset at 3pm on 05/30/24 according to patient's w/ h/o carotid stenosis s/p TCAR April 2024 ECHO- mild pulm HTN, EF 55-60%, neg interatrial shunt Carotid Dopplers show patent proximal left ICA stent. No evidence for hemodynamically significant stenosis. There is extensive calcified plaque both carotid bulbs. Neurology has recommended continuing carbidopa/levodopa Continue BuSpar, trazodone, Wellbutrin XL, Zoloft and prazosin #Fecal occult blood test positive Intermittent in setting of DAPT + Eliquis (per vascular surgery pt is to take aspirin for 30 days post op) - Pt underwent EGD and colonoscopy on 05/16/24 here at [facility], no significant source of bleeding identified H&H is stable Monitor intermittently #paroxysmal atrial fibrillation: Chronic - Rate controlled, continue Eliquis #Chronic thrombocytosis Continue hydroxyurea #Chronic hypoxic respiratory failure #VIK Continue home O2: 2 L nasal cannula Continue inhalers Continue CPAP at bedtime #Constipation Abdominal x-ray with moderate retained stool, no bowel obstruction, no gross severe. Continue senna plus MiraLAX # Pseudomonas aeruginosa UTI Patient is afebrile, clinically stable Urine culture is growing Pseudomonas aeruginosa, sensitivities pending Stop IV ceftriaxone and switch to IV Zosyn Follow-up urine culture sensitivities #Suspected conjunctivitis Continue Cipro eyedrops CODE STATUS: DNR/DNI DVT prophylaxis: Patient on apixaban Discharge planning to acute rehab likely tomorrow if medically stable based on urine culture sensitivities Care plan discussed with patient, nursing staff and updated Admission and Anticipated Discharge Date Admission Date: May 31, 2024 Subjective Patient seen and examined Patient reports improvement in his nausea and abdominal discomfort He tolerated breakfast without any nausea vomiting or abdominal pain He had a few bowel movements and feels much better He denies any fever, chills or urinary symptoms Physical Exam Physical Exam: General: No acute distress Psych: Awake and alert, oriented to self and person HEENT: Anicteric sclera, moist oral mucosa CVS: Regular rate and rhythm Lungs: Bilateral air entry, no wheezing noted Abdomen: Soft, nontender, no rebound, no guarding Ext: No lower extremity edema, prosthesis noted Results & Data Results & Data Vital Signs (Past 12 Hours) Vital Signs Temp Pulse Pulse Resp BP Pulse Ox O2 Del Method 06/06/24 11:17 36.4 C 79 18 133/75 95 Nasal Cannula 06/06/24 10:30 78 12 95 Nasal Cannula 06/06/24 09:15 Nasal Cannula 06/06/24 07:45 36.7 C 77 18 138/67 98 Nasal Cannula 06/06/24 07:17 75 06/06/24 06:11 74 17 90 Nasal Cannula 06/06/24 03:44 36.8 C 80 20 137/78 97 Nasal Cannula O2 Flow Rate 06/06/24 11:17 3 06/06/24 10:30 3 06/06/24 09:15 06/06/24 07:45 2 06/06/24 07:17 06/06/24 06:11 3 06/06/24 03:44 2 Laboratory Results 06/05/24 Unknown Urine Culture - Preliminary Urine,Straight Cath Pseudomonas aeruginosa 06/06/24 07:06 WBC 11.48 H RBC 3.38 L Hgb 9.0 L Hct 30.7 L MCV 90.8 MCH 26.6 MCHC 29.3 L RDW Std Deviation 63.2 H RDW Coeff of Hector 19.2 H Plt Count 710 H MPV 10.2 Immature Gran % (Auto) 1.0 Neut % (Auto) 88.2 Lymph % (Auto) 5.1 [place] % (Auto) 4.7 Eos % (Auto) 0.6 Baso % (Auto) 0.4 Neut # (Auto) 10.12 H Lymph # (Auto) 0.59 L [place] # (Auto) 0.54 Eos # (Auto) 0.07 Baso # (Auto) 0.05 Immature Gran # (Auto) 0.11 Sodium 139 Potassium 3.9 Chloride 104 Carbon Dioxide 27 Anion Gap 8 BUN 23 Creatinine 1.10 Est Cr Clr Drug Dosing 49.4 eGFR 69.14 BUN/Creatinine Ratio 20.9 H Glucose 87 Calcium 9.1 Magnesium 2.0 PG Care Time/CCT Total # of Minutes Spent Total Time Spent with Patient: Total time spent is greater than 50% in coordination of care (as documented) at patient's floor/unit and/or counseling patient: Coding Level of Care Code 42361 SUB INP/OBS CARE 2/35MIN Diagnoses Stroke-like symptoms R29.90 Fecal occult blood test positive R19.5 Carotid stenosis I65.29 Paroxysmal atrial fibrillation I48.0
[2024-06-06] MEDS: PIPERACILLIN/TAZOBACTAM 4.5 GM/100 ML BAG IV ONE (12:48)
[2024-06-06] MEDS: PIPERACILLIN/TAZOBACTAM 4.5 GM/100 ML BAG IV SCH (17:24)
[2024-06-07 07:35] VITALS: RESP 18
[2024-06-07 07:38] LABS: Hematocrit (blood only) 31.1 % (42.0-52.0); Hemoglobin 9.2 g/dl (14.0-18.0); Mean Corpuscular Hemoglobin 26.4 pg (25.0-34.0); Mean Corpuscular Hgb Conc 29.6 g/dL (32.0-36.0); Mean Corpuscular Volume 89.1 fL (80.0-100.0); Platelet Count 814 K/uL (130-400); RDW Standard Deviation 61.4 fL (36.4-46.3); Red Blood Count 3.49 M/uL (4.70-6.10); White Blood Count 9.08 K/ul (4.8-10.8)
[2024-06-07 07:54] LABS: BUN Creatinine Ratio 15.9 (10-20); Calcium 9.3 mg/dl (8.6-10.3); Magnesium 1.9 mg/dl (1.7-2.4); Potassium 3.7 mmol/L (3.5-5.1)
[2024-06-07] MEDS: MAGNESIUM SULFATE / D5W 1 GM/100 ML BAG IV ONE (09:06)
[2024-06-07 11:55] VITALS: BP 142/70; TEMP 97.7; O2SAT 96
[2024-06-07] MEDS: levoFLOXacin 500 MG TAB PO SCH (12:40)
[2024-06-07 14:15] VITALS: PULSE 70
--- NOTE | 2024-06-07 14:28 | Discharge Summary ---
Discharge Summary Date of Service June 07, 2024 Principal Dx & Hospital Course #1 = Principal Diagnosis (1) Stroke-like symptoms: (2) Fecal occult blood test positive: (3) Carotid stenosis: (4) Paroxysmal atrial fibrillation: Plan 78-year-old male with past medical history of Lewy body dementia, recent left transcarotid artery revascularization, multifocal chronic lacunar infarcts, chronic cerebrovascular disease presents with recurrence of right lower facial droop. #Suspected CVA #History of carotid stenosis status post TCAR on May 01, 2024 #Lewy body dementia Neurology saw the patient, reviewed the MRI and were unable to completely exclude a small subacute or acute infarct within the left cerebral hemisphere given the significant metallic artifact on his MRI -Neurology has recommended continue with aspirin 81 mg daily, Plavix 75 mg daily, apixaban 5 mg twice daily and atorvastatin 40 mg daily Acute onset at 3pm on 05/30/24 according to patient's w/ h/o carotid stenosis s/p TCAR April 2024 ECHO- mild pulm HTN, EF 55-60%, neg interatrial shunt Carotid Dopplers show patent proximal left ICA stent. No evidence for hemodynamically significant stenosis. There is extensive calcified plaque both carotid bulbs. Neurology has recommended continuing carbidopa/levodopa Continue BuSpar, trazodone, Wellbutrin XL, Zoloft and prazosin #Fecal occult blood test positive Intermittent in setting of DAPT + Eliquis (per vascular surgery pt is to take aspirin for 30 days post op) - Pt underwent EGD and colonoscopy on 05/16/24 here at [facility], no significant source of bleeding identified H&H is stable #paroxysmal atrial fibrillation: Chronic - Rate controlled, continue Eliquis #Chronic thrombocytosis Continue hydroxyurea #Chronic hypoxic respiratory failure #VIK Continue home O2: 2 L nasal cannula Continue inhalers Continue CPAP at bedtime #Constipation Abdominal x-ray with moderate retained stool, no bowel obstruction, no gross severe. Patient is having regular bowel movements, Continue laxatives as needed and continue senna at bedtime # Pseudomonas aeruginosa UTI Patient is afebrile, clinically stable Urine culture is growing Pseudomonas aeruginosa IV Zosyn has been switched to oral Levaquin for 5 more days to finish a course of antibiotics for total of 7 days Patient seen and examined. He is stable for discharge to acute rehab. Patient updated bedside updated on the phone This discharge to greater than 30 minutes to coordinate Admission HPI Per Admitting Provider Addison is a 78 yo M with a pmhx of COPD, chronic respiratory failure on 2L of supplemental O2, carotid artery stenosis s/p TCAR by Dr. Murray on 05/01/24, b/l BKA, LB dementia, and PAF on Eliquis who presents to the ER today accompanied by his w/ stroke-like symptoms that include right sided facial droop and difficulty with standing. Pt was transferred to the ER where he was a stroke- alert. Underwent CTH and CTA head and neck, all of which were negative and was seen by teleneurologist. His symptom onset per his was around 3pm on 05/30/24. Pt was deemed outside of the window for TPA. In addition to stroke symptoms, pt has been experiencing worsening cough and dark stools x2 days. His reports that he was hospitalized here last month for blood loss requiring transfusion. He was scoped upper and lower w/o evidence of acute bleeding, his Eliquis was held during that stay but then resumed on discharge and he was continued on DAPT given his recent carotid stent placement. He was to f/u as outpatient for small bowel capsule study but reports that she didn't get the information and he has not followed up with GI as an outpatient. Rectal exam performed by ED physician was heme positive. He was medicated with a dose of IV Protonix and a PPI gtt was ordered. His left carotid stent appears patent, there is reported moderate right plaque within the right carotid bifurcation w/o stenosis of the proximal right ICA. He is currently resting comfortably in ER litter, denies chest pain, dyspnea, abd pain, n/v/d. He was has been referred to hospital medicine team for admission. Discharge Exam General: No acute distress Psych: Awake and alert, oriented to self and person HEENT: Anicteric sclera, moist oral mucosa CVS: Regular rate and rhythm Lungs: Bilateral air entry, no wheezing noted Abdomen: Soft, nontender, no rebound, no guarding Ext: No lower extremity edema, prosthesis noted Discharge Plan Discharge Items Patient Disposition: Transfer Inpatient Rehab Fac Reason For Visit: TIA Discharge Diagnosis: #Suspected CVA #History of carotid stenosis status post TCAR on May 01, 2024 #Lewy body dementia #Fecal occult blood test positive #paroxysmal atrial fibrillation: #Chronic thrombocytosis #Chronic hypoxic respiratory failure #VIK # Pseudomonas aeruginosa UTI Activity: As commented below Activity Comment: As tolerated with assistance and prosthesis Non-emergency contact: Primary Care Provider Call non-emergency contact if: you have any medication questions, your symptoms worsen and you have a fever Follow-up/Referrals: Johnathon Lee MD [Physician] - Jasbir Murray MD [Physician] - Leonie Jackson NP [Primary Care Provider] - Diet: Heart Healthy Addtl Attending Provider Instructions: DISCHARGE INSTRUCTION TO PATIENT/FAMILY/ACUTE REHAB: Follow-up with your primary care provider within 1 week regarding: Posthospital discharge, medication review, medication refills and follow-up on all your medical problems Please take all your discharge medications, discharge information and discharge instructions to all your doctors appointments. Avoid all NSAIDs including ibuprofen, Motrin, Advil, Aleve, naproxen, meloxicam, Toradol, diclofenac Out of bed to chair for all meals, no meals in bed Patient uses CPAP for VIK at bedtime Follow-up with neurology in 3 to 4 weeks time as outpatient Results of hemoglobin A1c is still pending: Please follow-up results with PCP Labs at Acute Rehab on Monday06/10/24: CBC with Diff, CMP, Mg Pending Studies at Discharge: Yes Studies:: [id number] Stand-Alone Forms: My [facility] Outbox Skilled Items Patient informed of condition?: Yes DNR: Yes Discharge Level of Care: Acute rehab Communicable Disease: No Discharge Prognosis: Stable Lines: None Urinary Catheter: No Medications and DC Order Prescriptions: New sennosides [Senokot] 8.6 mg Tablet 17.2 mg PO HS Qty: 7 0RF Rx Instructions: HOLD FOR LOOSE STOOLS Artificial Tears Soln 1 drp OPB QID Qty: 1 0RF magnesium hydroxide [Milk of Magnesia] 400 mg/5 mL Suspension 30 ml PO Q12H PRN (Reason: constipation) Qty: 355 0RF bisacodyl 10 mg Suppository 10 mg DC DAILY PRN (Reason: constipation) Qty: 5 0RF levofloxacin 500 mg Tablet 500 mg PO DAILY@1100 Qty: 5 0RF Rx Instructions: START ON 06/08/24 Continued cyclobenzaprine 10 mg tablet 10 mg PO AMHS PRN (Reason: MUSCLE SPASMS) acetaminophen [Tylenol] 325 mg Tablet 650 mg PO Q4 PRN (Reason: PAIN/FEVER) Rx Instructions: Unable to verify OTC meds at this date/time. sertraline 100 mg tablet 200 mg PO DAILY Rx Instructions: Listed on [facility] pharmacy list as Active/Suspended prazosin 5 mg capsule 5 mg PO HS trazodone 150 mg tablet 150 mg PO HS Rx Instructions: On [facility] pharmacy list as Active/Suspended. montelukast 10 mg tablet 10 mg PO DAILY albuterol sulfate 90 mcg/actuation Hfa Aerosol Inhaler 2 puff INHALATION QID PRN (Reason: Shortness Of Breath Or Wheezing) finasteride 5 mg tablet 5 mg PO DAILY bupropion HCl 300 mg tablet extended release 24 hr 300 mg PO QAM tiotropium bromide [Spiriva with HandiHaler] 18 mcg capsule, w/inhalation device 1 cap INHALATION QAM Eliquis 5 mg tablet 5 mg PO AMHS folic acid 1 mg Tablet 1 mg PO QAM Qty: 0 0RF clopidogrel [Plavix] 75 mg Tablet 75 mg PO QAM hydroxyurea 500 mg Capsule 500 mg PO DIRECTED Patient Comments: BID M- , no weekends Rx Instructions: TAKES 500 MG BID, MONDAY THROUGH MONDAY. OFF MONDAY & SUNDAYS. atorvastatin 40 mg Tablet 20 mg PO HS buspirone 5 mg Tablet 0 mg PO TID Rx Instructions: [facility] med list shows this as Active/Suspended. Original Directions: 7.5mg by mouth TID fluticasone propion-salmeterol 250-50 mcg/dose Blister With Device 1 inh INHALATION BID miconazole nitrate 2 % Powder 1 applic TOPICAL BID PRN (Reason: FUNGAL INFECTION) spironolactone 25 mg Tablet 25 mg PO DAILY cholecalciferol (vitamin D3) [Vitamin D3] 25 mcg (1,000 unit) Capsule 50 mcg PO DAILY guaifenesin [Mucinex] 600 mg Tablet Extended Release 12hr 600 mg PO BID PRN (Reason: CONGESTION/COUGH) albuterol sulfate 2.5 mg /3 mL (0.083 %) Solution For Nebulization 2.5 mg INHALATION QID PRN (Reason: Shortness Of Breath Or Wheezing) aspirin 81 mg Tablet,Delayed Release (Dr/Ec) 0 mg PO DAILY Rx Instructions: Per [facility] Pharmacy list, pt is to stop this medication on 06/01/24. Original Directions: 81mg by mouth daily pantoprazole 40 mg Tablet,Delayed Release (Dr/Ec) 40 mg PO DAILY docusate sodium 100 mg Capsule 100 mg PO BID PRN (Reason: Constipation) carbidopa-levodopa 25-100 mg Tablet 2 tab PO TID Ensure Plus Liquid 1 ea PO DAILY Rx Instructions: Chocolate pregabalin 150 mg Capsule 150 mg PO BID Discontinued diclofenac sodium 1 % Gel 2 g TOPICAL QID PRN (Reason: JOINT PAIN) Discharge Orders: Discharge Order (Routine); Ordered 06/07/24 Ordered By: Satish Bautista Admission Data Admit Date/Time: 05/31/24 13:12 Attending Provider: Satish Bautista Admit Provider: Rita Holly Primary Care Provider: Leonie Jackson Other Providers: Andi Hartley; [facility]; Johnathon Lee; [facility]; [facility] Hospital Stay Data Consultations 05/31/24 12:28 ED Decision to Admit Stat 06/01/24 14:51 Consult Neurology Routine Diagnostic Imagining Performed 05/31/24 11:18 CT head/brain wo con Stat CTA head w con [CT angio head w con] Stat 05/31/24 11:20 CTA neck with con [CT angio neck with con] Stat 05/31/24 13:12 MRI Brain [MR brain wo con] Routine 06/02/24 10:51 Carotid duplex [US carotid doppler BI] Routine Head CT 05/31/24 11:18 CT head/brain wo con CLINICAL HISTORY: 78 years-old Male with tia sx. Acute stroke like symptoms TECHNIQUE: Multiple axial CT images of the head were obtained without contrast. A dose lowering technique was utilized adhering to the principles of ALARA. COMPARISON: CTA head of same day, head CT 05/14/2024 FINDINGS: No acute intracranial hemorrhage, midline shift, intracranial mass, hydrocephalus, territorial ischemia or abnormal extra-axial collection. Involutional changes with chronic microvascular ischemic disease. Few small areas of stable encephalomalacia again noted within the left cerebrum. The calvarium is intact. Small bilateral mastoid effusions. Postoperative changes of the paranasal sinuses. Unremarkable soft tissues. Unchanged metallic density focus of the lateral left temporal scalp IMPRESSION: No acute intracranial abnormality. ACT 112: Negative or not required by law. The above report was generated using voice recognition software. It may contain grammatical, syntax or spelling errors. Electronically signed by: Natanael Valladares M.D. 05/31/2024 11:57 AM Head CTA 05/31/24 11:18 CTA ANGIOGRAPHY OF THE HEAD CLINICAL HISTORY: TIA sx COMPARISON STUDY: Head CT May 14, 2024. CTA of the head March 01, 2024. TECHNIQUE: Helical axial images of the head were obtained following uneventful intravenous administration of 120 cc of Optiray. Sagittal and coronal reconstructions were viewed as well as maximal intensity projections on an independent 3-D workstation. Automated exposure control was utilized for the study. A dose lowering technique was utilized adhering to the principles of ALARA. FINDINGS: Please note that the head CT will be reported separately. There is no acute intracranial hemorrhage, midline shift or mass effect. Ventricular system is unremarkable. There are no extra-axial collections. There is moderate calcified atherosclerotic plaque within the bilateral cavernous carotids with mild stenosis. There is no high-grade stenosis within the intracranial vessels. No vessel occlusion is identified. No intracranial aneurysm is identified. The posterior circulation is also intact. IMPRESSION: No large vessel occlusion. No intracranial aneurysm. ACT 112: Negative or not required by law. Electronically signed by: Diego Jim M.D. 05/31/2024 11:57 AM Neck CTA 05/31/24 11:20 CT ANGIOGRAPHY OF THE NECK WITH CONTRAST CLINICAL HISTORY: tia sx COMPARISON STUDY: CTA of the neck May 14, 2024. Technique: CT angiography of the carotid and vertebral arteries was obtained using Optiray and 3D reconstruction on an independent workstation. NASCET criteria was utilized. Automated exposure control was utilized for the study. A dose lowering technique was utilized adhering to the principles of ALARA. CT DOSE: 1054.04 mGy.cm Findings: Visualized portions of the lung apices are unremarkable. There is no cervical lymphadenopathy. There are no cervical spine fractures. A stent within the left carotid bulb and proximal left internal carotid artery is patent and unchanged in appearance since CTA of May 14, 2024. Deformity of the proximal aspect of the stent with moderate extrinsic narrowing is unchanged. There is moderate plaque within the right carotid bifurcation without stenosis of the proximal right internal carotid artery. Vertebral arteries are patent. There is no dissection or aneurysm within the neck. IMPRESSION: 1. No change since CTA of May 14, 2024. 2. Patent left carotid stent, as described above. Deformity of the proximal aspect of the stent with moderate extrinsic narrowing, unchanged since prior exam. ACT 112: Negative or not required by law. Electronically signed by: Diego Jim M.D. 05/31/2024 11:55 AM Chest X-Ray 05/31/24 11:22 XR chest 1V portable HISTORY: 78 years-old Male neuro deficit, acute stroke suspected acute stroke like symptoms COMPARISON: 05/15/2019 TECHNIQUE: AP view of the chest FINDINGS: Cardiac silhouette is enlarged. No pneumothorax, pleural effusion, airspace consolidation or pulmonary edema. Bones appear grossly intact. IMPRESSION: Cardiomegaly without acute process. ACT 112: Negative or not required by law. The above report was generated using voice recognition software. It may contain grammatical, syntax or spelling errors. Electronically signed by: Natanael Valladares M.D. 05/31/2024 11:53 AM Brain MRI 05/31/24 13:12 MRI of the brain performed without IV contrast History: New onset confusion with history of dementia and Parkinson's disease. Comparison: Noncontrast head CT correlate 14 May 2024. Technique: Sagittal T1-weighted and axial T2-weighted, T2/FLAIR and diffusion-weighted with ADC map images of the brain were obtained without IV contrast. Findings: Susceptibility artifact left frontal temporal region corresponding to temporal scalp metallic density on prior CT. Additional motion limits portions of the exam. Diffusion weighted series demonstrates no signal abnormality. Brain parenchyma demonstrates mild volume loss left parietal lobe. Cortical increased T1 densities likely representing laminar necrosis. No appreciated chronic hemorrhage. Prominent bilateral basal ganglia perivascular spaces. Mild elements of increased T2 T2 flair britt radiata and centrum semiovale signal without mass effect. Ventricles and sulci are within normal limits for patient's age. No midline shift. Basal cisterns are patent. Major vascular flow voids are present. Intraorbital soft tissue's are within normal limits. Skull base and bony calvarial signal demonstrate likely retained fluid bilateral mastoid air cells. Impression: 1. Limitations secondary to susceptibility and motion artifact as described above with mild left parietal lobe encephalomalacia and no acute intracranial process. 2. Nonspecific white matter changes likely representing mild sequela from chronic microvascular disease. Please see above for details. Electronically signed by Amish Del Rosario 05-31-2024 5:48 PM Carotid Doppler Study 06/02/24 10:51 DUPLEX ULTRASOUND EXAMINATION OF THE CAROTID ARTERIES. COMPARISON: none . HISTORY / INDICATIONS: ICA stent TECHNIQUE: Bilateral common carotid arteries, extracranial internal and external carotid arteries are evaluated with knight-scale imaging, color Doppler, and spectral analysis according to a standard protocol. ICA-CCA ratios are calculated with representative phlebotomy services peak-systolic velocities and recorded. Vertebral arteries are evaluated in one segment to evaluate for patency and character of flow. Comparison with previous evaluation is performed when available. Unless otherwise specified, all velocities are measured in cm/sec. Carotid stenosis is reported according to validated velocity parameters, similar to NASCET criteria. FINDINGS: Right Carotid: . Velocity measurements as follows: Internal Carotid Artery 91 cm/sec. ICA to CCA ratio: 0.68. Left Carotid: .Velocity measurements as follows: Internal Carotid Artery 91 cm/sec. ICA to CCA ratio: 0.72. There is a proximal left ICA stent. Extensive calcified plaque is seen about both carotid bulbs, which appears greater on the right compared to the left. Antegrade flow was seen in both vertebral arteries. IMPRESSION: Patent proximal left ICA stent. No evidence for hemodynamically significant stenosis, by velocity criteria, of either internal carotid artery. There is extensive calcified plaque about both carotid bulbs. Electronically signed by Edgar Snow 06-02-2024 4:46 PM Chest/Abdomen X-ray 06/05/24 10:09 XR abdomen 2V w PA chest CLINICAL HISTORY: nausea COMPARISON STUDY: 05/31/2024 FINDINGS: CHEST: Heart size and pulmonary vasculature are normal. No effusion, consolidation, or pneumothorax. ABDOMEN: There is moderate retained stool. No bowel obstruction seen. No gross free air. IMPRESSION: No acute findings. ACT 112: Negative or not required by law. Electronically signed by: Win Yung M.D. 06/05/2024 11:22 AM 06/05/24 Unknown Urine Culture - Final Urine,Straight Cath Pseudomonas aeruginosa 06/07/24 07:06 WBC 9.08 RBC 3.49 L Hgb 9.2 L Hct 31.1 L MCV 89.1 MCH 26.4 MCHC 29.6 L RDW Std Deviation 61.4 H RDW Coeff of Hector 19.0 H Plt Count 814 H MPV 10.0 Sodium 139 Potassium 3.7 Chloride 102 Carbon Dioxide 30 Anion Gap 7 BUN 18 Creatinine 1.13 Est Cr Clr Drug Dosing 49.0 eGFR 66.94 BUN/Creatinine Ratio 15.9 Glucose 88 Calcium 9.3 Magnesium 1.9 Pending Results Patient Have Any Pending Studies at Discharge: Yes Discharge Instructions Given to Patient (Per Discharging Provider) DISCHARGE INSTRUCTION TO PATIENT/FAMILY/ACUTE REHAB: Follow-up with your primary care provider within 1 week regarding: Posthospital discharge, medication review, medication refills and follow-up on all your medical problems Please take all your discharge medications, discharge information and discharge instructions to all your doctors appointments. Avoid all NSAIDs including ibuprofen, Motrin, Advil, Aleve, naproxen, meloxicam, Toradol, diclofenac Out of bed to chair for all meals, no meals in bed Patient uses CPAP for VIK at bedtime Follow-up with neurology in 3 to 4 weeks time as outpatient Results of hemoglobin A1c is still pending: Please follow-up results with PCP Labs at Acute Rehab on Monday06/10/24: CBC with Diff, CMP, Mg Total Time Total Time Spent Total Time Spent (In Minutes): 38 Coding Level of Care Code 75500 INP/OBS DISCH >30 MIN Diagnoses Stroke-like symptoms R29.90 Fecal occult blood test positive R19.5 Carotid stenosis I65.29 Paroxysmal atrial fibrillation I48.0
[2024-06-09 15:17] LABS: EAG mg/dl DNR mg/dL; EAG mmol/L DNR mmol/L
== END 2024-06-07 15:51 | DRG 65 ==
LOC: ED 11:02 → 2W 13:12 → SUATTDRO 13:12 → 2W 14:09

== ENCOUNTER 2024-12-16 14:49 | Inpatient (IN) ==
--- NOTE | 2024-12-16 15:00 | Emergency Department Note ---
Impression & Plan Leukocytosis, Weakness, Diarrhea ED Provider Note NAME: EDWARD RAMIREZ Jr AGE: 79 SEX: M : 1945 ARRIVES VIA: Ambulance INFORMANT: Patient ED PROVIDER(S): Andi Thompson DO CHIEF COMPLAINT: Diarrhea and abdominal pain HPI: Patient is a 79-year-old male with a past medical history of chronic ischemic stroke, confusion, GI bleed, weakness and recent C. difficile who presents to the ER for upset stomach not eating and drinking for the past several days and weakness. He notes that he had C. difficile and was treated and discharged. He complete the course of antibiotics. He still having diarrhea twice a day. He feels very weak and rundown. Per EMS he had decreased urine output. Denies any fevers. No chest pain or shortness of breath. No nausea or other exacerbating or remitting factors. ADDITIONAL HISTORY OBTAINED: Per HPI Chronic Medical/Social Conditions Affecting Care: Per HPI PAST MEDICAL HISTORY:See Below PAST SURGICAL HISTORY:See Below FAMILY HISTORY:See Below SOCIAL HISTORY:See Below HOME MEDICATIONS:See Below ALLERGIES:See Below VITALS:See Below PHYSICAL EXAMINATION: GENERAL: Sitting up in bed, alert, well appearing, well nourished, no distress, non-toxic EYE EXAM: normal conjunctiva. PERRL and EOM's grossly intact. OROPHARYNX: no exudate, no erythema, lips, buccal mucosa, and tongue normal and mucous membranes are moist NECK: supple, no nuchal rigidity, no adenopathy, non-tender LUNGS: Clear to auscultation. Normal chest wall mechanics HEART: no murmurs, S1 normal and S2 normal ABDOMEN: abdomen soft, non-tender, normo-active bowel sounds, no masses, no rebound or guarding. UPPER EXTREMITIES: upper extremities are grossly normal. LOWER EXTREMITIES: No pitting edema. NEURO EXAM: Normal sensorium, cranial nerves II-XII grossly intact, normal speech, no gross weakness of arms, no gross weakness of legs. MEDICAL DECISION MAKING: Patient is a 79-year-old male with a past medical history of a stroke who presents ER for the above-stated complaint. IV was established and blood work was obtained. Labs show a leukocytosis of 17,000. No significant anemia. BMP was fairly unremarkable. LFTs and bilirubin were unremarkable. Lipase was normal. CT abdomen pelvis suggest a fistulous tract. Discussed this with Dr. Jc. He agreed and recommended admission to the hospitalist with likely diagnosis of C. difficile with diarrhea weakness. Patient and family were updated bedside. Discussed case with the hospitalist for further evaluation management treatment. Consults/Care Managements Discussions: Per MDM Triage Nursing notes reviewed. Limited review of prior medical records performed Vital Signs: reviewed and remarkable for no significant abnormalities Differential diagnosis: Infection, dehydration, metabolic abnormality, hypo/hyperglycemia, electrolyte disturbance, anemia, hypoxia, cardiac sources, intracerebral event, toxicologic, neurologic, as well as other pathologies. ER treatment provided: See below Diagnostics interpreted by me include EKG and cardiac monitoring as listed below: -Cardiac Monitoring: An order was placed for continuous cardiac monitoring. The monitor shows a rate of 80 with sinus rhythm. -ECG: none -Laboratory studies:Interpreted by me as stated above in MDM and shown below. Imaging studies: Xrays: As interpreted by me:none CTs show: CT abdomen pelvis per my pleurae interpretation shows no obvious bowel obstruction CT abdomen pelvis per radiologist described above Procedures:none Critical Care: None Past Med/Surg History Problem List (Updated 12/16/24 @ 18:32 by Andi Thompson DO) Diarrhea (Acute) Weakness (Acute) Leukocytosis (Acute) Chronic arterial ischemic stroke, multifocal, anterior circulation Cerebrovascular disease Confusion (Acute) Acute GI bleeding (Acute) Anemia (Acute) Weakness (Acute) Stroke-like symptoms Bacterial conjunctivitis of both eyes Fecal occult blood test positive Thrombocytosis chronic Splenomegaly History of esophagitis Breath shortness (Acute) Weakness (Acute) Symptomatic anemia (Acute) Acute encephalopathy Chronic hypoxic respiratory failure, on home oxygen therapy H/O transcarotid artery revascularization (TCAR) Iron deficiency anemia Upper abdominal pain Chest wall pain Symptomatic anemia S/P vascular surgery Carotid stenosis Lewy body dementia Hematuria (Acute) 05/2022 Somnolence (Acute) Vitamin D deficiency Nephrolithiasis Anemia Esophagitis Hypoxemia 02/2022 Asthma exacerbation 02/2022 Weakness (Acute) COPD exacerbation 02/2022 Peripheral artery disease Atrial tachycardia HTN (hypertension) Paroxysmal atrial fibrillation Atrial fibrillation and flutter DVT prophylaxis Chronic bronchitis Obesity S/P hernia repair History of partial colectomy Prolonged QT interval hx of (EZd=255 EKG 05/25/19); 03/2024 EKG does not show prolonged QT DDD (degenerative disc disease) (Acute) History of back surgery (Chronic) back surgery x3 at [facility] VIK on CPAP (Chronic) Noncompliant MRSA (methicillin resistant Staphylococcus aureus) (Chronic) negative nasal swab on 06/24/15 and 10/05/18 PTSD (post-traumatic stress disorder) (Chronic) do not wake patient by touching, wake patient by saying name Asthma (Chronic) BPH (benign prostatic hyperplasia) (Chronic) Medical History CKD (chronic kidney disease) (HFpEF) heart failure with preserved ejection fraction Obesity GERD (gastroesophageal reflux disease) Hyperlipidemia On home oxygen therapy 2 LPM Wheelchair dependent s/p B/L BKA Parkinson disease History of pneumonia Feb 29, 2024 hospitalized at [facility], resolved per pt's History of stroke 03/01/2024 at [facility] while in hospital, was mild per pt's , had facial drooping which has resolved Hx MRSA infection negative nasal swab on 06/24/15 and 10/05/18 PTSD (post-traumatic stress disorder) do not wake patient by touching, wake patient by saying name BPH (benign prostatic hyperplasia) Asthma well controlled per pt's Hx of sepsis 2019 VIK (obstructive sleep apnea) non compliant with cpap History of cardioversion Paroxysmal atrial fibrillation dx approx 2020 > Eliquis > no pacer > follows with [facility] cardio ; per 12/07/23 Cardio note, 'Afib with slow VR' Atrial tachycardia controlled per pt's ; per chart review, not mentioned in Cardio note HTN (hypertension) PAD (peripheral artery disease) COPD (chronic obstructive pulmonary disease) controlled per pt's Hx: UTI (urinary tract infection) none at present History of COVID-19 05/2022 Hx of Clostridium difficile infection 2011 Hx of sigmoidoscopy History of kidney stones passed on own Anemia follows with heme/onc Lewy body dementia Diverticular disease Surgical History History of tooth extraction History of colonoscopy History of back surgery L5-S1 Hx of hernia repair History of colon resection no colostomy > due to C diff 2011 S/P bilateral BKA (below knee amputation) right 2019, left 2020 > prosthetic bilat Status post ORIF of fracture of ankle 05/26/[address] Real SAB with sedation. Family History Mother Colorectal cancer Father PAD (peripheral artery disease) Denies family history of Coronary heart disease Social History Smoking Status: Former smoker Tobacco Type: Smokeless Tobacco (Dip or Chew) Second Hand Exposure: No; Do You Dip or Chew Tobacco: No (quit approx 3 yrs ago); Hx Alcohol Use: No Hx Substance Use: No Preferred Language: Upper Sorbian Communication Ability: Effective Communication Ability Comment: PT CONFUSED Duplication Specialist Required: No Beliefs That Will Affect Care: None marital status: Current Living Situation: Spouse Current Living Situation Comment: with and grandson current occupational status: 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; 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 also in the [employer] during How many Children do You have: 2 Feels Safe at Home: Yes Assistive Devices: CPAP, Mechanical Lift, Nebulizer, Oxygen - Continuous, Prosthesis, Walker and Wheelchair Allergies Allergies Allergy/AdvReac Type Severity Reaction Status Date / Time ibuprofen Allergy Intermediate HIVES Verified 05/31/24 14:15 adhesive tape Allergy Unknown Unknown - Unverified 05/31/24 14:15 On file / [facility] Pharmacy Home Meds Home Medications Medication Instructions Recorded Confirmed acetaminophen 325 mg tablet 650 mg PO Q4 PRN PAIN/FEVER 06/22/22 06/21/24 (Tylenol) albuterol sulfate 90 mcg/actuation 2 puff inhalation QID PRN 06/22/22 06/21/24 aerosol inhaler Shortness Of Breath Or Wheezing apixaban 5 mg tablet (Eliquis) 5 mg PO AMHS 06/22/22 06/21/24 bupropion HCl 300 mg 24 hr tablet, 300 mg PO QAM 06/22/22 06/21/24 extended release cyclobenzaprine 10 mg tablet 10 mg PO AMHS PRN MUSCLE SPASMS 06/22/22 06/21/24 finasteride 5 mg tablet 5 mg PO DAILY 06/22/22 06/21/24 montelukast 10 mg tablet 10 mg PO DAILY 06/22/22 06/21/24 prazosin 5 mg capsule 5 mg PO HS 06/22/22 06/21/24 sertraline 100 mg tablet 200 mg PO DAILY 06/22/22 06/21/24 tiotropium bromide 18 mcg capsule 1 cap inhalation QAM 06/22/22 06/21/24 with inhalation device (Spiriva with HandiHaler) trazodone 150 mg tablet 150 mg PO HS 06/22/22 06/21/24 clopidogrel 75 mg tablet (Plavix) 75 mg PO QAM 04/04/24 06/21/24 hydroxyurea 500 mg capsule 500 mg PO DIRECTED 04/04/24 06/21/24 atorvastatin 40 mg tablet 20 mg PO HS 05/14/24 06/21/24 buspirone 5 mg tablet 0 mg PO TID 05/14/24 06/21/24 cholecalciferol (vitamin D3) 25 50 mcg PO DAILY 05/14/24 06/21/24 mcg (1,000 unit) capsule (Vitamin D3) fluticasone 250 mcg-salmeterol 50 1 inh inhalation BID 05/14/24 06/21/24 mcg/dose blistr powdr for inhalation guaifenesin 600 mg tablet, 600 mg PO BID PRN CONGESTION/COUGH 05/14/24 06/21/24 extended release 12 hr (Mucinex) miconazole nitrate 2 % topical 1 applic topical BID PRN FUNGAL 05/14/24 06/21/24 powder INFECTION spironolactone 25 mg tablet 25 mg PO DAILY 05/14/24 06/21/24 albuterol sulfate 2.5 mg/3 mL 2.5 mg inhalation QID PRN 05/31/24 06/21/24 (0.083 %) solution for nebulization Shortness Of Breath Or Wheezing aspirin 81 mg tablet,delayed 0 mg PO DAILY 05/31/24 06/21/24 release carbidopa 25 mg-levodopa 100 mg 2 tab PO TID 05/31/24 06/21/24 tablet docusate sodium 100 mg capsule 100 mg PO BID PRN Constipation 05/31/24 06/21/24 food supplemt, lactose-reduced 1 ea PO DAILY 05/31/24 06/21/24 pantoprazole 40 mg tablet,delayed 40 mg PO DAILY 05/31/24 06/21/24 release pregabalin 150 mg capsule 150 mg PO BID 05/31/24 06/21/24 fluticasone furoate 100 1 inh inhalation DAILY 06/21/24 06/21/24 mcg-vilanterol 25 mcg/dose inhalation powder (Breo Ellipta) Previous Rx's Medication Instructions Recorded folic acid 1 mg tablet 1 mg PO QAM #0 tabs 06/27/22 Artificial Tears Soln 1 drp OPB QID #1 applic 06/07/24 bisacodyl 10 mg rectal suppository 10 mg WV DAILY PRN constipation #5 06/07/24 ea levofloxacin 500 mg tablet 500 mg PO DAILY@1100 #5 tabs 06/07/24 magnesium hydroxide 400 mg/5 mL 30 ml PO Q12H PRN constipation 06/07/24 oral suspension (Milk of Magnesia) #355 mL sennosides 8.6 mg tablet (Senokot) 17.2 mg (2 x 8.6 mg) PO HS #7 tabs 06/07/24 Results & Data (ED) Vital Signs Vital Signs - 24 hr 12/16/24 14:55 12/16/24 15:18 12/16/24 15:18 Temperature 37.1 C Temperature Source Oral Pulse Rate 96 H Pulse Rate [Apical] 91 H Pulse Rate from SpO2 Sensor Respiratory Rate 16 20 Respiratory Effort / Characteristics Non-Labored Spontaneous Respiratory Depth Normal Respiratory Pattern Regular Blood Pressure 136/84 Blood Pressure [Left Arm] 126/80 Blood Pressure Mean 101 Blood Pressure Mean [Left Arm] 95 Blood Pressure Position Semi-fowlers Blood Pressure Position [Left Arm] Semi-fowlers Pulse Oximetry 97 97 97 Oxygen Delivery Method Room Air Nasal Cannula Nasal Cannula Oxygen Flow Rate 2 2 Sepsis Recent Fever Within 48 Hours No Sepsis New/Unexplained Change in Mental Status No Sepsis Action Taken by Nursing No Action Required 12/16/24 15:30 12/16/24 15:30 12/16/24 15:40 Temperature Temperature Source Pulse Rate 82 Pulse Rate [Apical] Pulse Rate from SpO2 Sensor Respiratory Rate Respiratory Effort / Characteristics Respiratory Depth Respiratory Pattern Blood Pressure 138/81 138/81 Blood Pressure [Left Arm] Blood Pressure Mean 97 97 Blood Pressure Mean [Left Arm] Blood Pressure Position Blood Pressure Position [Left Arm] Pulse Oximetry Oxygen Delivery Method Oxygen Flow Rate Sepsis Recent Fever Within 48 Hours Sepsis New/Unexplained Change in Mental Status Sepsis Action Taken by Nursing 12/16/24 15:54 12/16/24 16:15 12/16/24 16:30 Temperature Temperature Source Pulse Rate 85 95 H Pulse Rate [Apical] Pulse Rate from SpO2 Sensor 89 88 Respiratory Rate 20 24 Respiratory Effort / Characteristics Respiratory Depth Respiratory Pattern Blood Pressure 129/65 Blood Pressure [Left Arm] Blood Pressure Mean 94 Blood Pressure Mean [Left Arm] Blood Pressure Position Blood Pressure Position [Left Arm] Pulse Oximetry 96 92 Oxygen Delivery Method Oxygen Flow Rate Sepsis Recent Fever Within 48 Hours Sepsis New/Unexplained Change in Mental Status Sepsis Action Taken by Nursing 12/16/24 16:30 12/16/24 17:00 Temperature Temperature Source Pulse Rate 86 Pulse Rate [Apical] 84 Pulse Rate from SpO2 Sensor 92 H Respiratory Rate 20 20 Respiratory Effort / Characteristics Respiratory Depth Respiratory Pattern Blood Pressure Blood Pressure [Left Arm] 120/66 Blood Pressure Mean Blood Pressure Mean [Left Arm] 84 Blood Pressure Position Blood Pressure Position [Left Arm] Semi-fowlers Pulse Oximetry 92 97 Oxygen Delivery Method Nasal Cannula Oxygen Flow Rate 2 Sepsis Recent Fever Within 48 Hours Sepsis New/Unexplained Change in Mental Status Sepsis Action Taken by Nursing Laboratory Data 12/16/24 15:05 12/16/24 15:05 Lab Results 12/16/24 12/16/24 Range/Units 15:05 15:24 WBC 17.45 H (4.8-10.8) K/ul RBC 4.99 (4.70-6.10) M/uL Hgb 13.3 L (14.0-18.0) g/dl POC Hgb 13.9 L (14.0-18.0) g/dl Hct 43.0 (42.0-52.0) % POC Hct 41 L (42-52) % MCV 86.2 (80.0-100.0) fL MCH 26.7 (25.0-34.0) pg MCHC 30.9 L (32.0-36.0) g/dL RDW Std Deviation 62.6 H (36.4-46.3) fL RDW Coeff of Hector 20.3 H (11.5-14.5) % Plt Count 803 H (130-400) K/uL MPV 10.1 (9.4-12.4) fL Immature Gran % (Auto) 1.1 % Neut % (Auto) 90.1 % Lymph % (Auto) 3.1 % Upson % (Auto) 5.0 % Eos % (Auto) 0.4 % Baso % (Auto) 0.3 % Neut # (Auto) 15.71 H (1.40-6.50) K/uL Lymph # (Auto) 0.54 L (1.20-3.40) K/uL Upson # (Auto) 0.88 H (0.11-0.59) K/uL Eos # (Auto) 0.07 (0.00-0.50) K/uL Baso # (Auto) 0.06 (0.00-0.20) K/uL Immature Gran # (Auto) 0.19 (0.01-0.20) K/uL Anisocytosis Present POC Sodium 141 (135-144) mmol/L Sodium 140 (136-145) mmol/L POC Potassium 3.5 (3.3-5.0) mmol/L Potassium 3.6 (3.5-5.1) mmol/L POC Chloride 104 (101-112) mmol/L Chloride 104 (98-107) mmol/L Carbon Dioxide 24 (21-32) mmol/L POC Total CO2 21 L (24-31) mmol/L Anion Gap 12 H (3-11) POC Anion Gap 21.0 (16-25) mmol/L POC BUN 15 (7-18) mg/dl BUN 14 (6-23) mg/dl Creatinine 0.89 (0.6-1.4) mg/dl POC Creatinine 2.7 H (0.6-1.3) mg/dl Est Cr Clr Drug Dosing Not Reportable eGFR 88.26 BUN/Creatinine Ratio 15.7 (10-20) Glucose 89 (70-99(Fasting)) mg/dl POC Glucose (other) 100 H (70-99) mg/dl Calcium 9.3 (8.6-10.3) mg/dl POC Ioniz Calcium Bertha 1.13 (1.12-1.32) mmol/l Total Bilirubin 1.0 (0.2-1.0) mg/dl AST 13 (13-39) U/L ALT < 3 L (7-52) U/L Alkaline Phosphatase 70 (34-104) U/L Total Protein 7.0 (6.0-8.3) gm/dl Albumin 3.7 (3.4-5.0) gm/dl Globulin 3.3 (2.5-4.0) gm/dl Albumin/Globulin Ratio 1.1 (0.9-2) Lipase 7 L (11-82) U/L Administered Medications Discontinued Medications Sodium Chloride (Nss) 1,000 mls @ 999 mls/hr IV .Q1H1M ONE Stop: 12/16/24 15:57 Last Infusion: 12/16/24 16:25 Dose: Infused Documented By: Admin: 12/16/24 15:20 Dose: 999 mls/hr Documented By: HAKAN Ondansetron HCl (Ondansetron Inj 2 Mg/Ml 2 Ml Vial) 4 mg IV NOW STA Stop: 12/16/24 14:58 Last Admin: 12/16/24 15:24 Dose: 4 mg Documented By: HAKAN Vancomycin HCl (Vancomycin Hcl 125 Mg Cap) 125 mg PO NOW STA Stop: 12/16/24 16:45 Last Admin: 12/16/24 17:14 Dose: 125 mg Documented By: HAKAN Imaging Data Radiologist's Impression: Abdomen/Pelvis CT 12/16/24 15:31 CT SCAN OF THE ABDOMEN AND PELVIS WITHOUT IV CONTRAST CLINICAL HISTORY: Generalized abdominal pain. COMPARISON STUDY: Abdominal CT dated 05/14/2024. TECHNIQUE: CT scan of the abdomen and pelvis is performed from the lung bases to the proximal femora. Images are reviewed in the axial, sagittal, and coronal planes. IV contrast was not administered for this examination. Note that the examination is significantly suboptimal without oral and IV contrast. A dose lowering technique was utilized adhering to the principles of ALARA. CT DOSE: 1347.12 mGy.cm FINDINGS: Lung bases: The heart is enlarged hand without pericardial effusion. The coronary arteries are densely calcified. There are scattered calcified granulomas. Scarring/atelectasis is seen at the lung bases. No airspace consolidation or pleural effusion is identified. Liver: The unenhanced liver is enlarged measuring 19.7 cm in length. The liver is otherwise normal in contour and attenuation. There is no intrahepatic biliary ductal dilatation. Gallbladder: Unremarkable. Spleen: The spleen is markedly enlarged measuring 19.4 cm in length. Pancreas: The unenhanced pancreas is moderately atrophic and grossly unremarkable. 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 The left renal gland is normal in appearance. Kidneys: The unenhanced kidneys demonstrate mild cortical atrophy and are without hydronephrosis. There is a 6 mm nonobstructing right renal calculus. No left renal calculi are identified and no ureteral stone is seen. There is no evidence of contour deforming renal mass lesion. Abdominal vasculature: There is advanced atherosclerotic calcification and mild ectasia of the abdominal aorta. Bowel: There is postsurgical change from sigmoid resection with colocolonic anastomosis. No bowel obstruction is seen. Mild fecal retention is noted throughout the colon. There is a long segment of mild colonic wall thickening or surrounding inflammation an trace fluid. This extends from the splenic flexure to the sigmoid and is consistent with a nonspecific colitis. A fistulous connection is suspected between the sigmoid colon near the anastomosis and an adjacent loop of small bowel, best seen on axial image #259 and coronal image #48. The appendix is well-visualized and normal. There are scattered colonic diverticula without clear CT evidence of acute diverticulitis. Peritoneum: There is no intraperitoneal free air or abdominal ascites. Lymphadenopathy: None. Pelvic viscera: The prostate gland is diminutive and heterogeneous. The bladder is mildly distended, and the wall appears thickened/trabeculated indicating chronic outlet obstruction. Skeletal structures: The skeletal structures are osteopenic. There is moderate lumbosacral spondylosis with postsurgical change at L5-S1. No lytic or blastic lesions are seen. IMPRESSION: 1. There is a nonspecific colitis of the left colon. Clinical correlation will be required. 2. There is postsurgical change from sigmoid colon resection and colocolonic anastomosis. No bowel obstruction is seen. 3. Suspect a fistulous connection between the sigmoid colon near the anastomosis and an adjacent loop of small bowel. 4. Hepatosplenomegaly. 5. Cardiomegaly noting advanced coronary artery atherosclerosis. 6. Right-sided nephrolithiasis. 7. Additional findings as above. ACT 112: Negative or not required by law. Electronically signed by: Joel Prater M.D. 12/16/2024 4:13 PM Discharge Plan Visit Data Chief Complaint: Dehydration Stated Complaint: WEAKNESS, DARK URINE ED Provider: Andi Thompson Discharge Problem: Leukocytosis, Weakness, Diarrhea Condition: Fair Forms Stand Alone Forms: My [facility] Prescriptions Prescriptions: No Action cyclobenzaprine 10 mg tablet 10 mg PO AMHS PRN (Reason: MUSCLE SPASMS) acetaminophen [Tylenol] 325 mg Tablet 650 mg PO Q4 PRN (Reason: PAIN/FEVER) Rx Instructions: Unable to verify OTC meds at this date/time. sertraline 100 mg tablet 200 mg PO DAILY Rx Instructions: Listed on [facility] pharmacy list as Active/Suspended prazosin 5 mg capsule 5 mg PO HS trazodone 150 mg tablet 150 mg PO HS Rx Instructions: On [facility] pharmacy list as Active/Suspended. montelukast 10 mg tablet 10 mg PO DAILY albuterol sulfate 90 mcg/actuation Hfa Aerosol Inhaler 2 puff INHALATION QID PRN (Reason: Shortness Of Breath Or Wheezing) finasteride 5 mg tablet 5 mg PO DAILY bupropion HCl 300 mg tablet extended release 24 hr 300 mg PO QAM tiotropium bromide [Spiriva with HandiHaler] 18 mcg capsule, w/inhalation device 1 cap INHALATION QAM Eliquis 5 mg tablet 5 mg PO AMHS folic acid 1 mg Tablet 1 mg PO QAM Qty: 0 0RF clopidogrel [Plavix] 75 mg Tablet 75 mg PO QAM hydroxyurea 500 mg Capsule 500 mg PO DIRECTED Patient Comments: BID - , no weekends Rx Instructions: TAKES 500 MG BID, MONDAY THROUGH MONDAY. OFF MONDAY & SUNDAYS. fluticasone furoate-vilanterol [Breo Ellipta] 100-25 mcg/dose Blister With Device 1 inh INHALATION DAILY atorvastatin 40 mg Tablet 20 mg PO HS buspirone 5 mg Tablet 0 mg PO TID Rx Instructions: [facility] med list shows this as Active/Suspended. Original Directions: 7.5mg by mouth TID fluticasone propion-salmeterol 250-50 mcg/dose Blister With Device 1 inh INHALATION BID miconazole nitrate 2 % Powder 1 applic TOPICAL BID PRN (Reason: FUNGAL INFECTION) spironolactone 25 mg Tablet 25 mg PO DAILY cholecalciferol (vitamin D3) [Vitamin D3] 25 mcg (1,000 unit) Capsule 50 mcg PO DAILY guaifenesin [Mucinex] 600 mg Tablet Extended Release 12hr 600 mg PO BID PRN (Reason: CONGESTION/COUGH) albuterol sulfate 2.5 mg /3 mL (0.083 %) Solution For Nebulization 2.5 mg INHALATION QID PRN (Reason: Shortness Of Breath Or Wheezing) aspirin 81 mg Tablet,Delayed Release (Dr/Ec) 0 mg PO DAILY Rx Instructions: Per [facility] Pharmacy list, pt is to stop this medication on 06/01/24. Original Directions: 81mg by mouth daily pantoprazole 40 mg Tablet,Delayed Release (Dr/Ec) 40 mg PO DAILY docusate sodium 100 mg Capsule 100 mg PO BID PRN (Reason: Constipation) carbidopa-levodopa 25-100 mg Tablet 2 tab PO TID food supplemt, lactose-reduced Liquid 1 ea PO DAILY Rx Instructions: Chocolate pregabalin 150 mg Capsule 150 mg PO BID levofloxacin 500 mg Tablet 500 mg PO DAILY@1100 Qty: 5 0RF Rx Instructions: START ON 06/08/24 bisacodyl 10 mg Suppository 10 mg WV DAILY PRN (Reason: constipation) Qty: 5 0RF magnesium hydroxide [Milk of Magnesia] 400 mg/5 mL Suspension 30 ml PO Q12H PRN (Reason: constipation) Qty: 355 0RF sennosides [Senokot] 8.6 mg Tablet 17.2 mg PO HS Qty: 7 0RF Rx Instructions: HOLD FOR LOOSE STOOLS Artificial Tears Soln 1 drp OPB QID Qty: 1 0RF Referrals Referrals: Leonie Jackson, PCA [Primary Care Provider] - Discharge Problem: Leukocytosis Qualifiers: Leukocytosis type: unspecified Qualified Code(s): D72.829 - Elevated white blood cell count, unspecified Diarrhea Qualifiers: Diarrhea type: unspecified type Qualified Code(s): R19.7 - Diarrhea, unspecified
[2024-12-16] MEDS: SODIUM CHLORIDE 0.9% 1,000 ML IV ONE (15:20)
[2024-12-16] MEDS: ONDANSETRON INJ 2 MG/ML 2 ML VIAL IV STA (15:24)
[2024-12-16 15:33] LABS: Hematocrit (blood only) 43.0 % (42.0-52.0); Hemoglobin 13.3 g/dl (14.0-18.0); Mean Corpuscular Hemoglobin 26.7 pg (25.0-34.0); Mean Corpuscular Volume 86.2 fL (80.0-100.0); Platelet Count 803 K/uL (130-400); RDW Standard Deviation 62.6 fL (36.4-46.3); Red Blood Count 4.99 M/uL (4.70-6.10); White Blood Count 17.45 K/ul (4.8-10.8)
[2024-12-16 15:49] LABS: Anion Gap 12 (3-11); Blood Urea Nitrogen 14 mg/dl (6-23); Calcium 9.3 mg/dl (8.6-10.3); Carbon Dioxide 24 mmol/L (21-32); Chloride 104 mmol/L (98-107); Glucose 89 mg/dl (70-99(Fasting)); Potassium 3.6 mmol/L (3.5-5.1); Sodium 140 mmol/L (136-145)
[2024-12-16 15:50] LABS: Anisocytosis Present; Immature Granulocytes # (auto) 0.19 K/uL (0.01-0.20); Immature Granulocytes % (auto) 1.1 %
[2024-12-16 15:54] LABS: Alanine Aminotransferase < 3 U/L (7-52); Albumin Globulin Ratio 1.1 (0.9-2); Albumin Level 3.7 gm/dl (3.4-5.0); Alkaline Phosphatase 70 U/L (34-104); Bilirubin,Total 1.0 mg/dl (0.2-1.0); Globulin 3.3 gm/dl (2.5-4.0); Lipase 7 U/L (11-82); Total Protein 7.0 gm/dl (6.0-8.3)
--- NOTE | 2024-12-16 16:15 | CT Scan Report ---
CT SCAN OF THE ABDOMEN AND PELVIS WITHOUT IV CONTRAST CLINICAL HISTORY: Generalized abdominal pain. COMPARISON STUDY: Abdominal CT dated 05/14/2024. TECHNIQUE: CT scan of the abdomen and pelvis is performed from the lung bases to the proximal femora. Images are reviewed in the axial, sagittal, and coronal planes. IV contrast was not administered for this examination. Note that the examination is significantly suboptimal without oral and IV contrast . A dose lowering technique was utilized adhering to the principles of ALARA. CT DOSE: 1347.12 mGy.cm FINDINGS: Lung bases: The heart is enlarged hand without pericardial effusion. The coronary arteries are densel y calcified. There are scattered calcified granulomas. Scarring/atelectasis is seen at the lung bases . No airspace consolidation or pleural effusion is identified. Liver: The unenhanced liver is enlarged measuring 19.7 cm in length. The liver is otherwise normal in contour and attenuation. There is no intrahepatic biliary ductal dilatation. Gallbladder: Unremarkable. Spleen: The spleen is markedly enlarged measuring 19.4 cm in length. Pancreas: The unenhanced pancreas is moderately atrophic and grossly unremarkable. 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 The left renal gland is nor mal in appearance. Kidneys: The unenhanced kidneys demonstrate mild cortical atrophy and are without hydronephrosis. The re is a 6 mm nonobstructing right renal calculus. No left renal calculi are identified and no uretera l stone is seen. There is no evidence of contour deforming renal mass lesion. Abdominal vasculature: There is advanced atherosclerotic calcification and mild ectasia of the abdomi nal aorta. Bowel: There is postsurgical change from sigmoid resection with colocolonic anastomosis. No bowel obs truction is seen. Mild fecal retention is noted throughout the colon. There is a long segment of mild colonic wall thickening or surrounding inflammation an trace fluid. This extends from the splenic fl exure to the sigmoid and is consistent with a nonspecific colitis. A fistulous connection is suspecte d between the sigmoid colon near the anastomosis and an adjacent loop of small bowel, best seen on ax ial image #259 and coronal image #48. The appendix is well-visualized and normal. There are scattere d colonic diverticula without clear CT evidence of acute diverticulitis. Peritoneum: There is no intraperitoneal free air or abdominal ascites. Lymphadenopathy: None. Pelvic viscera: The prostate gland is diminutive and heterogeneous. The bladder is mildly distended, and the wall appears thickened/trabeculated indicating chronic outlet obstruction. Skeletal structures: The skeletal structures are osteopenic. There is moderate lumbosacral spondylosi s with postsurgical change at L5-S1. No lytic or blastic lesions are seen. IMPRESSION: 1. There is a nonspecific colitis of the left colon. Clinical correlation will be required. 2. There is postsurgical change from sigmoid colon resection and colocolonic anastomosis. No bowel ob struction is seen. 3. Suspect a fistulous connection between the sigmoid colon near the anastomosis and an adjacent loop of small bowel. 4. Hepatosplenomegaly. 5. Cardiomegaly noting advanced coronary artery atherosclerosis. 6. Right-sided nephrolithiasis. 7. Additional findings as above. ACT 112: Negative or not required by law. Electronically signed by: Joel Prater M.D. 12/16/2024 4:13 PM
[2024-12-16] MEDS: VANCOMYCIN HCL 125 MG CAP PO STA (17:14)
[2024-12-16] MEDS: SODIUM CHLORIDE 0.9% 1,000 ML IV SCH (19:15)
--- NOTE | 2024-12-16 19:32 | History & Physical Report ---
Date of Service December 16, 2024 Assessment & Plan (1) Recurrent colitis due to Clostridium difficile: (2) Chronic hypoxic respiratory failure, on home oxygen therapy: (3) Lewy body dementia: (4) Peripheral artery disease: (5) Paroxysmal atrial fibrillation: Plan 79 y/o with Lewy Body dementia and diffuse cardiovascular disease, treated for pneumonia early October and treated for C. diff a month ago who comes to ED with recurrent diarrhea, abdominal pain, and dehydration consistent with recurrence of C. difficile colitis. # C. difficile colitis -recurrence of diarrhea and left lower quadrant pain with left-sided colitis on CT and leukocytosis highly like to be recurrent C. difficile colitis. This started after an episode of pneumonia this fall which required antibiotics # Dehydration -Check stool C. difficile and stool BioFire - Treated with 1 L IV fluids in the ED give another 1 L bolus and then start normal saline with 20 mEq of potassium at 125 mL/h - Since this is a first recurrence is optimal to use Dificid 200 mg p.o. twice daily x 10 days, however, may need to transition back to oral vancomycin as an outpatient because of cost Probiotic Try to stop PPI, replace with Pepcid 20 mg p.o. twice daily as needed heartburn or dyspepsia - Monitor CBC and BMP as well as magnesium # Possible fistulous connection between his current colonic anastomosis site and his small bowel -this was seen on admission CT abdomen and pelvis without contrast and is a new finding. The ED physician discussed with general surgery and there was no intervention recommended. I think this is unlikely related to his abdominal pain and may be clinically incidental. I discussed this finding with his # CKD stage III with dehydrationfortunately creatinine is at baselinemonitor UOP and BMP # Bilateral blepharitis Bilateral blepharitis with mucus around eyelashes, sclerae clear. Topical erythromycin ointment to be applied to eyelids as well as hot compresses. # Widespread cardiovascular disease, peripheral arterial disease, multiple chronic lacunar infarctsstable History of carotid stenosis with left TCAR Status post bilateral BKA's Continue Plavix, no longer on aspirin Continue statin # Paroxysmal atrial fibrillationrate is controlled continue apixaban # Chronic hypoxic respiratory failure, at baseline continue supplemental oxygen # Obstructive sleep apneacontinue CPAP at at bedtime # mild pulmonary hypertension noted on previous echo, likely related to chronic hypoxia from VIK and COPD # COPD not in exacerbationcontinue Breo Ellipta, tiotropium inhalers and as needed nebulized albuterol # Chronic thrombocytosiscontinue hydroxyurea twice daily Monday through Monday # History of gastrointestinal bleeding spring 2024had EGD and colonoscopy in April 2024 at [facility] which was unrevealing for source of bleeding, had capsule endoscopy with [facility] over the summer his reports no significant findings Monitor hemoglobin and stools Try to replace PPI with Pepcid as needed. reduce C. difficile risk # Chronic dysuria, BPH with bladder outlet obstruction Chronic dysuria attributed to prostate pressing on bladder according to his urologist Continue tamsulosin and finasteride # Lewy body dementia Lewy body dementia and Parkinson's disease at baseline, has been a little more agitated than normal but not significantly different than his baseline mental status to his - Continue carbidopa/levodopa, delirium precautions, avoid sedating medications and other neurotoxins # Major depressive disorder, stablecontinue bupropion # DVT Prophylaxis: Continue apixaban # generalized weakness, bilateral BKA's but usually can stand and transfer a few steps with his prosthetic legs consulted PT and OT # CODE STATUS his confirms that he is DNR/DNI I updated her at bedside today Medical Complexity: Medical decision making was complex, high risk for clinical deterioration morbidity, or mortality for this encounter. he has multiple medical comorbidities including his extensive vascular disease which make him higher risk for morbidity Unstable conditions include risk for delirium due to Lewy body dementia, Parkinson's disease, and acute illness due to recurrent C. difficile colitis. 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 difficile colitis. High risk medications and treatments include Dificid, apixaban, and Plavix. History of Present Illness Chief Complaint: diarrhea, abdominal pain Primary Care Provider: Leonie Jackson NP The patient consented to use of [employer], an AI based tool that will listen to our encounter and draft a clinical note based on our conversation. All notes will be reviewed and edited by me before entering them into the medical record. Reason for Admit: Evaluation of colitis and dehydration. 79 y/o with Lewy Body dementia and diffuse cardiovascular disease, treated for pneumonia early October and treated for C. diff a month ago who comes to ED with recurrent diarrhea, abdominal pain, and dehydration. The patient presents for evaluation of LLQ abdominal pain and diarrhea. Treated at [facility] for C. difficile on 11/17/2024 with vancomycin oral for 2 weeks. Initially had abdominal pain and nausea without diarrhea earlier in the week starting Monday, but now reports recurrence of diarrhea past 24-48h with stringy stool and mucus which is smelly like before. Appetite decreased, experiencing hallucinations and restlessness, though not more confused/forgetful than normal. No fever, nausea without vomiting. Pain in left lower quadrant persists. History of previous C. difficile infection post-colon resection for diverticulitis greater than one year ago. No blood in stool. Currently on Plavix and Eliquis. Reports mild difficulty breathing, more severe than usual. His hasn't noticed any difficulty breathing, cough, increased hypoxia, or abnormal breath sounds with her stethoscope. He uses home oxygen and CPAP. Hospitalized for pneumonia from 10/25/2024 to 10/31/2024, resolved with antibiotics. Has Lewy body dementia and Parkinson's disease, takes Sinemet. S/P bilateral BKAs remotely. Uses wheelchair, requires assistance with transfers, has prosthetic legs, walks a few steps with support. Weaker this week, pale, presyncopal, unable to stand and transfer. Did not sleep on Monday night, calm throughout. No urination today, dark urine this morning. Chronic dysuria attributed to prostate. Dry skin, monitoring red spot on buttocks to prevent bedsores, applying zinc oxide. Eye discharge when ill, vision unaffected, eyelids are sore especially left lower. uses Refresh eye drops. Carotid stent placed in spring, questionable stroke or TIA-like episode after that but MRI affected by stent scatter and went to [facility] for rehab after that episode, no neurological problems since. Allergies Allergy/AdvReac Type Severity Reaction Status Date / Time ibuprofen Allergy Intermediate HIVES Verified 05/31/24 14:15 adhesive tape Allergy Unknown Unknown - Unverified 05/31/24 14:15 On file / [facility] Home Medications Medication Instructions Recorded Confirmed Type acetaminophen 325 mg tablet 650 mg PO Q6 PRN PAIN/FEVER 06/22/22 12/16/24 History (Tylenol) albuterol sulfate 90 mcg/actuation 2 puff inhalation Q6 PRN Shortness 06/22/22 12/16/24 History aerosol inhaler Of Breath Or Wheezing apixaban 5 mg tablet (Eliquis) 5 mg PO BID 06/22/22 12/16/24 History bupropion HCl 300 mg 24 hr tablet, 300 mg PO QAM 06/22/22 12/16/24 History extended release cyclobenzaprine 10 mg tablet 10 mg PO BID PRN MUSCLE SPASMS 06/22/22 12/16/24 History finasteride 5 mg tablet 5 mg PO DAILY 06/22/22 12/16/24 History montelukast 10 mg tablet 10 mg PO DAILY 06/22/22 12/16/24 History prazosin 5 mg capsule 5 mg PO HS 06/22/22 12/16/24 History sertraline 100 mg tablet 200 mg PO QPM 06/22/22 12/16/24 History tiotropium bromide 18 mcg capsule 18 mcg inhalation QAM 06/22/22 12/16/24 History with inhalation device (Spiriva with HandiHaler) trazodone 150 mg tablet 150 mg PO HS 06/22/22 12/16/24 History folic acid 1 mg tablet 1 mg PO QAM #0 tabs 06/27/22 12/16/24 Rx clopidogrel 75 mg tablet (Plavix) 75 mg PO QAM 04/04/24 12/16/24 History hydroxyurea 500 mg capsule 500 mg PO DIRECTED 04/04/24 12/16/24 History cholecalciferol (vitamin D3) 25 50 mcg PO DAILY 05/14/24 12/16/24 History mcg (1,000 unit) capsule (Vitamin D3) fluticasone 250 mcg-salmeterol 50 1 inh inhalation BID 05/14/24 12/16/24 History mcg/dose blistr powdr for inhalation spironolactone 25 mg tablet 25 mg PO QAM 05/14/24 12/16/24 History albuterol sulfate 2.5 mg/3 mL 2.5 mg inhalation Q6 PRN Shortness 05/31/24 12/16/24 History (0.083 %) solution for nebulization Of Breath Or Wheezing carbidopa 25 mg-levodopa 100 mg 2 tab PO TID 05/31/24 12/16/24 History tablet docusate sodium 100 mg capsule 100 mg PO BID PRN Constipation 05/31/24 12/16/24 History pantoprazole 40 mg tablet,delayed 40 mg PO DAILY 05/31/24 12/16/24 History release pregabalin 150 mg capsule 150 mg PO BID 05/31/24 12/16/24 History atorvastatin 20 mg tablet 20 mg PO HS 12/16/24 12/16/24 History buspirone 7.5 mg tablet 7.5 mg PO TID 12/16/24 12/16/24 History Past Med/Surg History Problem List (Updated 12/16/24 @ 19:29 by Nataly Sanchez MD) Recurrent colitis due to Clostridium difficile Diarrhea (Acute) Weakness (Acute) Leukocytosis (Acute) Chronic arterial ischemic stroke, multifocal, anterior circulation Cerebrovascular disease Confusion (Acute) Acute GI bleeding (Acute) Anemia (Acute) Weakness (Acute) Stroke-like symptoms Bacterial conjunctivitis of both eyes Fecal occult blood test positive Thrombocytosis chronic Splenomegaly History of esophagitis Breath shortness (Acute) Weakness (Acute) Symptomatic anemia (Acute) Acute encephalopathy Chronic hypoxic respiratory failure, on home oxygen therapy H/O transcarotid artery revascularization (TCAR) Iron deficiency anemia Upper abdominal pain Chest wall pain Symptomatic anemia S/P vascular surgery Carotid stenosis Lewy body dementia Hematuria (Acute) 05/2022 Somnolence (Acute) Vitamin D deficiency Nephrolithiasis Anemia Esophagitis Hypoxemia 02/2022 Asthma exacerbation 02/2022 Weakness (Acute) COPD exacerbation 02/2022 Peripheral artery disease Atrial tachycardia HTN (hypertension) Paroxysmal atrial fibrillation Atrial fibrillation and flutter DVT prophylaxis Chronic bronchitis Obesity S/P hernia repair History of partial colectomy Prolonged QT interval hx of (CTa=907 EKG 05/25/19); 03/2024 EKG does not show prolonged QT DDD (degenerative disc disease) (Acute) History of back surgery (Chronic) back surgery x3 at [facility] VIK on CPAP (Chronic) Noncompliant MRSA (methicillin resistant Staphylococcus aureus) (Chronic) negative nasal swab on 06/24/15 and 10/05/18 PTSD (post-traumatic stress disorder) (Chronic) do not wake patient by touching, wake patient by saying name Asthma (Chronic) BPH (benign prostatic hyperplasia) (Chronic) Medical History CKD (chronic kidney disease) (HFpEF) heart failure with preserved ejection fraction Obesity GERD (gastroesophageal reflux disease) Hyperlipidemia On home oxygen therapy 2 LPM Wheelchair dependent s/p B/L BKA Parkinson disease History of pneumonia Feb 29, 2024 hospitalized at [facility], resolved per pt's History of stroke 03/01/2024 at [facility] while in hospital, was mild per pt's , had facial drooping which has resolved Hx MRSA infection negative nasal swab on 06/24/15 and 10/05/18 PTSD (post-traumatic stress disorder) do not wake patient by touching, wake patient by saying name BPH (benign prostatic hyperplasia) Asthma well controlled per pt's Hx of sepsis 2019 VIK (obstructive sleep apnea) non compliant with cpap History of cardioversion Paroxysmal atrial fibrillation dx approx 2020 > Eliquis > no pacer > [facility] ; per 12/07/23 Cardio note, 'Afib with slow VR' Atrial tachycardia controlled per pt's ; per chart review, not mentioned in Cardio note HTN (hypertension) PAD (peripheral artery disease) COPD (chronic obstructive pulmonary disease) controlled per pt's Hx: UTI (urinary tract infection) none at present History of COVID-19 05/2022 Hx of Clostridium difficile infection 2011 Hx of sigmoidoscopy History of kidney stones passed on own Anemia follows with heme/onc Lewy body dementia Diverticular disease Surgical History History of tooth extraction History of colonoscopy History of back surgery L5-S1 Hx of hernia repair History of colon resection no colostomy > due to C diff 2011 S/P bilateral BKA (below knee amputation) right 2019, left 2020 > prosthetic bilat Status post ORIF of fracture of ankle 05/26/[address] Farhan DIEZ with sedation. Family History Mother Colorectal cancer Father PAD (peripheral artery disease) Denies family history of Coronary heart disease Social History Smoking Status: Former smoker Tobacco Type: Smokeless Tobacco (Dip or Chew) Second Hand Exposure: No; Do You Dip or Chew Tobacco: No (quit approx 3 yrs ago); Hx Alcohol Use: No Hx Substance Use: No Preferred Language: [place] Communication Ability: Effective Communication Ability Comment: PT CONFUSED [employer] Required: No Beliefs That Will Affect Care: None marital status: Current Living Situation: Spouse Current Living Situation Comment: with and grandson current occupational status: 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 HEENT: Bilateral blepharitis with mucus and erythema around eyelashes. Sclerae clear. Pupils equal. Respiratory: Lungs clear anteriorly and posteriorly. Cardiovascular: Regular rhythm. distant Gastrointestinal: Active bowel sounds. Small shallow wound with scab in umbilicus area, 4 mm, not draining. Tenderness in left lower quadrant with involuntary guarding. No rebound. Extremities: Bilateral BKA. Both stumps healed well, no wounds. WWP Skin: Warm and dry, no rash. Neurological: Alert, oriented to self/ and a hospital, forgetful, very soft voice (hx vocal cord paralysis), moves UE and LE well and equally Psychiatric: Normal. Results & Data Results & Data Vital Signs (Past 12 Hours) Vital Signs Temp Pulse Pulse Resp BP BP Pulse Ox 12/16/24 17:00 84 20 120/66 97 12/16/24 16:30 86 20 92 12/16/24 16:30 129/65 12/16/24 16:15 95 H 24 92 12/16/24 15:54 85 20 96 12/16/24 15:40 82 12/16/24 15:30 138/81 12/16/24 15:30 138/81 12/16/24 15:18 91 H 20 126/80 97 12/16/24 15:18 97 12/16/24 14:55 37.1 C 96 H 16 136/84 97 O2 Del Method O2 Flow Rate 12/16/24 17:00 Nasal Cannula 2 12/16/24 16:30 12/16/24 16:30 12/16/24 16:15 12/16/24 15:54 12/16/24 15:40 12/16/24 15:30 12/16/24 15:30 12/16/24 15:18 Nasal Cannula 2 12/16/24 15:18 Nasal Cannula 2 12/16/24 14:55 Room Air Laboratory Results white blood count is 17,000, hemoglobin 14 platelets 803 Electrolytes normal potassium low normal creatinine 0.9 which is his baseline LFTs and lipase are normal - CT scan: hepatosplenomegaly, previous sigmoid colon resection with anastomosis, colitis from spleen splenic flexure down to sigmoid colon - Possible fistula or connection between small bowel and colon at anastomosis site trabeculated bladder consistent with chronic bladder outlet obstruction Code Status & VTE Plan VTE Prophylaxis Plan VTE Prophylaxis will be ordered: Yes PG Care Time/CCT Total # of Minutes Spent Total Time Spent with Patient: Total time spent is greater than 50% in coordination of care (as documented) at patient's floor/unit and/or counseling patient: Coding Level of Care Code 19350 INT INP/OBS CARE MIN Diagnoses Recurrent colitis due to Clostridium difficile A04.71 Chronic hypoxic respiratory failure, on home oxygen therapy J96.11; Z99.81 Lewy body dementia G31.83; F02.80 Peripheral artery disease I73.9 Paroxysmal atrial fibrillation I48.0
[2024-12-16 19:55] LABS: Appearance Urine Clear (Clear); Bacteria Urine Automated None Seen (None Seen); Cast Urine Automated 0-2 /lpf (0-2); Epithelial Cell Urine Auto 0-2 /hpf (0-2); Glucose Urine UA Negative (Negative); RBC Urine Automated 0-2 /hpf (0-2); WBC Urine Automated 0-5 /hpf (0-5)
[2024-12-16] MEDS ORDERED: ONDANSETRON INJ 2 MG/ML 2 ML VIAL IV PRN (21:49)
[2024-12-16] MEDS ORDERED: ALBUTEROL 0.083% NEBU SOLN 3 ML VIAL INH PRN (21:49)
[2024-12-16] MEDS: NSS + 20MEQ KCL 20 MEQ/1,000 ML BAG IV SCH (22:39)
[2024-12-16] MEDS: PRAZOSIN HCL 1 MG CAP PO SCH (23:25)
[2024-12-16] MEDS: PREGABALIN 150 MG CAP PO SCH (23:26)
[2024-12-16] MEDS: APIXABAN 5 MG TABLET PO SCH (23:26)
[2024-12-16] MEDS: CARBIDOPA/LEVODOPA 25/100MG TAB PO SCH (23:26)
[2024-12-16] MEDS: ATORVASTATIN 20 MG TAB PO SCH (23:26)
[2024-12-16] MEDS: ERYTHROMYCIN OP OINT 5 MG/GM 3.5 GM TUBE OPB SCH (23:27)
[2024-12-16] MEDS: HYDROXYUREA 500 MG CAP PO SCH (23:49)
[2024-12-16] MEDS: FIDAXOMICIN 200 MG TAB PO ONE (23:49)
[2024-12-16] MEDS: ACETAMINOPHEN 325 MG TAB PO PRN (23:56)
[2024-12-17 06:42] LABS: Hematocrit (blood only) 33.2 % (42.0-52.0); Hemoglobin 10.1 g/dl (14.0-18.0); Mean Corpuscular Hemoglobin 27.0 pg (25.0-34.0); Mean Corpuscular Volume 88.8 fL (80.0-100.0); Platelet Count 646 K/uL (130-400); RDW Standard Deviation 65.3 fL (36.4-46.3); Red Blood Count 3.74 M/uL (4.70-6.10); White Blood Count 9.89 K/ul (4.8-10.8)
[2024-12-17 07:04] LABS: Anion Gap 7.0 (3-11); Blood Urea Nitrogen 10.0 mg/dl (6-23); Calcium 8.1 mg/dl (8.6-10.3); Carbon Dioxide 23.0 mmol/L (21-32); Chloride 111.0 mmol/L (98-107); Creatinine Clr Calc Pharmacy 70.1 ml/min; Glucose 64.0 mg/dl (70-99(Fasting)); Magnesium 1.4 mg/dl (1.7-2.4); Potassium 3.6 mmol/L (3.5-5.1); Sodium 141.0 mmol/L (136-145)
[2024-12-17] MEDS: MAGNESIUM SULFATE / D5W 1 GM/100 ML BAG IV SCH (09:24)
[2024-12-17] MEDS: CYCLOBENZAPRINE HCL 5 MG TAB PO PRN (09:26)
[2024-12-17] MEDS: FAMOTIDINE 20 MG TAB PO PRN (09:26)
[2024-12-17] MEDS: MONTELUKAST SODIUM 10 MG TABLET PO SCH (09:26)
[2024-12-17] MEDS: FINASTERIDE 5 MG TAB PO SCH (09:26)
[2024-12-17] MEDS: CLOPIDOGREL BISULFATE 75 MG TAB PO SCH (09:26)
[2024-12-17] MEDS: FLUTICASONE/VILANTEROL 100/25MCG 14 PUFFS/INHALER INH SCH (09:27)
[2024-12-17] MEDS: UMECLIDINIUM BROMIDE 62.5MCG/BLISTER 7 PUFFS/INHALER INH SCH (09:27)
[2024-12-17] MEDS: HYDROXYUREA 500 MG CAP PO SCH (09:28)
[2024-12-17] MEDS ORDERED: Nursing to Pharmacy Communication SCH ×2 (15:30→16:45)
--- NOTE | 2024-12-17 16:29 | Hospitalist Progress Note ---
Date of Service December 17, 2024 Assessment & Plan (1) Recurrent colitis due to Clostridium difficile: (2) Chronic hypoxic respiratory failure, on home oxygen therapy: (3) Lewy body dementia: (4) Peripheral artery disease: (5) Paroxysmal atrial fibrillation: Plan 79 y/o with Lewy Body dementia and diffuse cardiovascular disease, treated for pneumonia early October and treated for C. diff a month ago who comes to ED with recurrent diarrhea, abdominal pain, and dehydration consistent with recurrence of C. difficile colitis. # C. difficile colitis -recurrence of diarrhea and left lower quadrant pain with left-sided colitis on CT and leukocytosis highly like to be recurrent C. difficile colitis. This started after an episode of pneumonia this fall which required antibiotics # Dehydration # hypokalemia and hypomagnesemia from stool losses -Check stool C. difficile and stool BioFirethey were just collected and pending - given 2 L worth of IV fluid bolus day of admission, continue normal saline with 20 mEq of potassium at 125 mL/h - Since this is a first recurrence is optimal to use Dificid 200 mg p.o. twice daily x 10 days, however, may need to transition back to oral vancomycin as an outpatient because of cost. Discussed with nursing aide she is starting p aperwork for Dificid manufacture program Probiotic Try to stop PPI, replace with Pepcid 20 mg p.o. 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 The ED physician discussed with general surgery and there was no intervention recommended. I think this is unlikely related to his abdominal pain and may be clinically incidental. I discussed this finding with his # CKD stage III creatinine remains at baseline # Bilateral blepharitis Bilateral blepharitis with mucus around eyelashes, sclerae clear. Topical erythromycin ointment to be applied to eyelids as well as hot compresses. - improved on exam today much less erythematous and mucous drainage has decreased # Widespread cardiovascular disease, peripheral arterial disease, multiple chronic lacunar infarctsstable History of carotid stenosis with left TCAR Status post bilateral BKA's Continue Plavix, no longer on aspirin, Continue statin remained stable # Paroxysmal atrial fibrillationrate is controlled continue apixaban, no evidence of include acute bleeding # Chronic hypoxic respiratory failure, at baseline continue supplemental oxygen # Obstructive sleep apneacontinue CPAP at at bedtime # mild pulmonary hypertension noted on previous echo, likely related to chronic hypoxia from VIK and COPD # COPD not in exacerbationcontinue Breo Ellipta, tiotropium inhalers and as needed nebulized albuterol # Chronic thrombocytosiscontinue hydroxyurea Monday through Monday - he actually is only taking this once daily at this time, adjusted order # History of gastrointestinal bleeding spring 2024had EGD and colonoscopy in April 2024 at [facility] which was unrevealing for source of bleeding, had capsule endoscopy with [facility] over the summer his reports no significant findings Monitor hemoglobin and stools, no evidence of acute GI bleeding Try to replace PPI with Pepcid as needed. reduce C. difficile risk # Chronic dysuria, BPH with bladder outlet obstruction Chronic dysuria attributed to prostate pressing on bladder according to his urologist Continue tamsulosin and finasteride # Lewy body dementia Lewy body dementia and Parkinson's disease at baseline, has been a little more a gitated than normal but not significantly different than his baseline mental status to his - Continue carbidopa/levodopa, delirium precautions, avoid sedating medications and other neurotoxins mental status remains at baseline # Major depressive disorder, stablecontinue bupropion # generalized weakness, bilateral BKA's but usually can stand and transfer a few steps with his prosthetic legs consulted PT and OT # DVT Prophylaxis: Continue apixaban # CODE STATUS his confirms that he is DNR/DNI I updated her at bedside 12/16 Admission and Anticipated Discharge Date Admission Date: December 16, 2024 Subjective Afebrile overnight, O2 sat 95% on 2 L. Vital signs unremarkable. WBC improved from 17 to 9.8. Hemoglobin decreased from 13 to 10, baseline. Platelets 646. Sodium 141, potassium 3.5, metabolic acidosis resolved. Creatinine 0.8, BUN 10, glucose 64, not on diabetic medications. No stool study results, no stools recorded in nursing notes. Reports feeling much better, no abdominal pain, left lower quadrant tender to touch. No shortness of breath, cough, or chest pain. Recently had a loose stool sent for sample analysis. Reports feeling stronger, retrieving lower extremity prosthesis from the car. Physical Exam Physical Exam: awake alert appears comfortable lying in bed looks better color improved. Oriented to hospital and basic situation. face symmetric and speech intact voice is soft which is chronic lungs clear to auscultation bilaterally no rhonchi rales or wheezes, heart regular no murmurs rubs or gallops abdomen soft tender to palpation left lower quadrant mildly distended and tympanic, there are areas of thickening of the abdominal wall related to scarring from previous surgery,, no RRG bowel tones present skin is warm dry no rashes lower extremities are warm and well-perfused he has bilateral BKA stumps there are no wounds he has no edema Results & Data Results & Data Vital Signs (Past 12 Hours) Vital Signs Temp Pulse Resp BP Pulse Ox O2 Del Method O2 Flow Rate 12/17/24 12:49 36.6 C 82 14 120/64 96 Room Air 12/17/24 09:26 Nasal Cannula 1 12/17/24 08:00 36.5 C 66 20 101/61 95 Nasal Cannula 2 Laboratory Results - Laboratory Studies: - WBC: improved from 17 to 9.8 - Hemoglobin: decreased from 13 to 10 - Platelets: 646 - Sodium: 141 - Potassium: 3.5 - Metabolic acidosis: resolved - Creatinine: 0.8 - BUN: 10 - Glucose: 64 - Magnesium: 1.4 - LFTs: normal - Urinalysis: negative for pyuria stool sample is pending for C. difficile and BioFire PG Care Time/CCT Total # of Minutes Spent Total Time Spent with Patient: Total time spent is greater than 50% in coordination of care (as documented) at patient's floor/unit and/or counseling patient: Coding Level of Care Code 95195 SUB INP/OBS CARE 2MIN Diagnoses Recurrent colitis due to Clostridium difficile A04.71 Chronic hypoxic respiratory failure, on home oxygen therapy J96.11; Z99.81 Lewy body dementia G31.83; F02.80 Peripheral artery disease I73.9 Paroxysmal atrial fibrillation I48.0
[2024-12-17 16:34] LABS: Adenovirus F 40/41 PCR Not Detected (NotDetected); Campylobacter PCR Not Detected (NotDetected); Enteroaggregative E.coli(EAEC) Not Detected (NotDetected); Shiga-like Toxin E.coli (STEC) Not Detected (NotDetected); Vibrio species PCR Not Detected (NotDetected)
[2024-12-17 16:56] LABS: Cdiff Toxin B Gene (2yr or >) Positive Cdiff Gene (Neg)
[2024-12-17 16:57] LABS: Cdiff Toxin A+B Negative Cdiff Toxin (Negative)
[2024-12-17] MEDS: FIDAXOMICIN 200 MG TAB PO SCH (17:42)
[2024-12-18 07:28] LABS: Hematocrit (blood only) 34.4 % (42.0-52.0); Hemoglobin 10.6 g/dl (14.0-18.0); Mean Corpuscular Hemoglobin 27.4 pg (25.0-34.0); Mean Corpuscular Volume 88.9 fL (80.0-100.0); Platelet Count 751 K/uL (130-400); RDW Standard Deviation 67.4 fL (36.4-46.3); Red Blood Count 3.87 M/uL (4.70-6.10); White Blood Count 8.10 K/ul (4.8-10.8)
[2024-12-18 07:52] LABS: Anion Gap 6.0 (3-11); Blood Urea Nitrogen 8.0 mg/dl (6-23); Calcium 8.0 mg/dl (8.6-10.3); Carbon Dioxide 24.0 mmol/L (21-32); Chloride 111.0 mmol/L (98-107); Creatinine Clr Calc Pharmacy 85.0 ml/min; Glucose 77.0 mg/dl (70-99(Fasting)); Magnesium 1.8 mg/dl (1.7-2.4); Potassium 3.4 mmol/L (3.5-5.1); Sodium 141.0 mmol/L (136-145)
--- NOTE | 2024-12-18 07:57 | Hospitalist Progress Note ---
Date of Service December 18, 2024 Assessment & Plan (1) Recurrent colitis due to Clostridium difficile: Plan In summary this is a 79-year-old male admitted with recurrent C. difficile colitis #Recurrent C. difficile colitis Continue treatment with Dificid given recurrence; encourage oral hydration and intake as he can tolerate Continue Dificid 200 mg p.o. twice daily through 12/26 P.o. ad pratibha., advance diet as tolerated #Coloenteric fistula General Surgery reviewed at the time of the patient's admission; there was no recommendation for surgical intervention nor does it appear to be directly related to patient's current medical condition #Blepharitis, OU Continue current intervention with topical erythromycin and hot compresses; likely chronic, as the patient is without acute symptomatology The remainder of the patient's chronic medical conditions are stable, and no change to their home medication regimen will be made at this time Admission and Anticipated Discharge Date Admission Date: December 16, 2024 Subjective Mr. De Los Santos is a 79-year-old male whose active medical conditions include carotid and peripheral arterial disease secondary to atherosclerosis, hypertension, chronic respiratory failure requiring continuous oxygen supplementation, iron deficiency anemia, Lewy body dementia among other chronic medical conditions who was admitted to the [facility] on 12/16 due to persistent diarrhea, abdominal pain concerning for recurrent C. difficile colitis. No acute overnight events; patient is morning feels well, tolerating oral intake without difficulty; has had to have bowel movement and is having difficulty passing gas though he feels as if he needs to Review of Systems Review of Systems: Review of constitutional, cardiovascular, gastrointestinal, genitourinary systems was unremarkable except for pertinent positive and negative findings described above Physical Exam Physical Exam: General: Elderly male in no acute distress Vital Signs: Reviewed HEENT: Moist mucous membranes Pulmonary: Symmetric chest wall excursion without restriction; clear to auscultation bilaterally Cardiovascular: Regular rate and rhythm without murmurs, rubs, or gallops; S1-S2 normal; bilateral radial pulse 2+ Gastrointestinal: Distended, soft; low-frequency normal pitch bowel sounds present throughout the abdomen; tender to deep palpation in the left lower and left flank, remaining abdomen is without tenderness to deep palpation or percussion Neurologic: Cranial nerves II through XII grossly intact Skin: No appreciable injuries; lower extremity BKA's appear well with no pressure ulcerations Results & Data Results & Data Vital Signs (Past 12 Hours) Vital Signs Temp Pulse Resp BP Pulse Ox O2 Del Method O2 Flow Rate 12/18/24 07:17 36.7 C 73 18 132/73 96 Nasal Cannula 2 12/17/24 23:59 36.6 C 67 18 105/62 96 Room Air 12/17/24 20:15 Nasal Cannula 1 PG Care Time/CCT Total # of Minutes Spent Total Time Spent with Patient: Total time spent is greater than 50% in coordination of care (as documented) at patient's floor/unit and/or counseling patient: Coding Level of Care Code 56487 SUB INP/OBS CARE 2/35MIN Diagnoses Recurrent colitis due to Clostridium difficile A04.71
[2024-12-19 06:56] LABS: Anion Gap 6.0 (3-11); Blood Urea Nitrogen 7.0 mg/dl (6-23); Calcium 7.8 mg/dl (8.6-10.3); Carbon Dioxide 23.0 mmol/L (21-32); Chloride 112.0 mmol/L (98-107); Creatinine Clr Calc Pharmacy 95.1 ml/min; Glucose 86.0 mg/dl (70-99(Fasting)); Magnesium 1.4 mg/dl (1.7-2.4); Potassium 3.8 mmol/L (3.5-5.1); Sodium 141.0 mmol/L (136-145)
--- NOTE | 2024-12-19 10:56 | Hospitalist Progress Note ---
Date of Service December 19, 2024 Assessment & Plan (1) Recurrent colitis due to Clostridium difficile: Plan In summary this is a 79-year-old male admitted with recurrent C. difficile colitis #Recurrent C. difficile colitis Continue treatment with Dificid given recurrence; encourage oral hydration and intake as he can tolerate Continue Dificid 200 mg p.o. twice daily through 12/27; script sent to [facility], spouse will pickling machine operator prior to anticipated discharge on 12/20 P.o. ad pratibha., advance diet as tolerated #Coloenteric fistula General Surgery reviewed at the time of the patient's admission; there was no recommendation for surgical intervention nor does it appear to be directly related to patient's current medical condition #Blepharitis, OU Resolved, discontinue erythromycin ointment; continue hot compresses as needed; likely chronic The remainder of the patient's chronic medical conditions are stable, and no change to their home medication regimen will be made at this time. Anticipate discharge home without services by private transport on 12/20 Admission and Anticipated Discharge Date Admission Date: December 16, 2024 Anticipated date of discharge: 12/20/24 Subjective Mr. De Los Santos is a 79-year-old male whose active medical conditions include carotid and peripheral arterial disease secondary to atherosclerosis, hypertension, chronic respiratory failure requiring continuous oxygen supplementation, iron deficiency anemia, Lewy body dementia among other chronic medical conditions who was [facility] to [facility] on 12/16 due to persistent diarrhea, abdominal pain concerning for recurrent C. difficile colitis. No acute overnight events; patient is morning feels well, tolerating oral intake without difficulty; successfully passed stool without significant difficulty, without notable hematochezia Review of Systems Review of Systems: Review of constitutional, cardiovascular, gastrointestinal, genitourinary systems was unremarkable except for pertinent positive and negative findings described above Physical Exam Physical Exam: General: Elderly male in no acute distress Vital Signs: Reviewed HEENT: Moist mucous membranes Pulmonary: Symmetric chest wall excursion without restriction; clear to ausculta tion bilaterally Cardiovascular: Regular rate and rhythm without murmurs, rubs, or gallops; S1-S2 normal; bilateral radial pulse 2+ Gastrointestinal: Distended, soft; low-frequency normal pitch bowel sounds present throughout the abdomen; remains mildly tender to deep palpation in the left lower and left flank, remaining abdomen is without tenderness to deep palpation or percussion Neurologic: Cranial nerves II through XII grossly intact Skin: No appreciable injuries; lower extremity BKA's appear well with no pressure ulcerations Results & Data Results & Data Vital Signs (Past 12 Hours) Vital Signs Temp Pulse Resp BP Pulse Ox O2 Del Method O2 Flow Rate 12/19/24 10:48 36.4 C L 84 18 129/75 93 Nasal Cannula 2 12/19/24 07:35 36.6 C 74 18 114/73 94 Nasal Cannula 2 PG Care Time/CCT Total # of Minutes Spent Total Time Spent with Patient: Total time spent is greater than 50% in coordination of care (as documented) at patient's floor/unit and/or counseling patient: Coding Level of Care Code 76877 SUB INP/OBS CARE MIN Diagnoses Recurrent colitis due to Clostridium difficile A04.71
[2024-12-20 09:24] LABS: Anion Gap 5.0 (3-11); Blood Urea Nitrogen 7.0 mg/dl (6-23); Calcium 8.4 mg/dl (8.6-10.3); Carbon Dioxide 28.0 mmol/L (21-32); Chloride 109.0 mmol/L (98-107); Creatinine Clr Calc Pharmacy 105.9 ml/min; Glucose 84.0 mg/dl (70-99(Fasting)); Magnesium 1.5 mg/dl (1.7-2.4); Potassium 3.3 mmol/L (3.5-5.1); Sodium 142.0 mmol/L (136-145)
[2024-12-20] MEDS: ADVANCED PROBIOTIC 625 MG CAPSULE PO SCH (10:46)
[2024-12-20] MEDS: LOPERAMIDE HCL 2 MG CAP PO ONE (10:46)
--- NOTE | 2024-12-20 12:33 | Hospitalist Progress Note ---
Date of Service December 20, 2024 Assessment & Plan (1) Recurrent colitis due to Clostridium difficile: Plan In summary this is a 79-year-old male admitted with recurrent C. difficile colitis #Recurrent C. difficile colitis Continue treatment with Dificid given recurrence; encourage oral hydration and intake as he can tolerate Continue Dificid 200 mg p.o. twice daily through 12/27; script sent to [facility], spouse will crab picker prior to anticipated discharge on 12/20 he has had an excessive amount of watery loose stool in the last 24 hours much more than he was previously he is afebrile and he appears well clinically I think this may be related to lactose intolerance on the full liquid diet. I have changed him to a regular low fiber diet with lactose-free. Added a probiotic. Gave a dose of Imodium. Monitor abdominal exam and stools hypokalemia - has mild hypokalemia today replacing with p.o. this is due to stool losses, add-on and magnesium level a.m. BMP and mag check #Coloenteric fistula General Surgery reviewed at the time of the patient's admission; there was no recommendation for surgical intervention nor does it appear to be directly related to patient's current medical condition Outpatient colorectal surgery referral #Blepharitis, OU Resolved, discontinue erythromycin ointment; continue hot compresses as needed; likely chronic DVT ppx - is on apixaban The remainder of the patient's chronic medical conditions are stable, and no change to their home medication regimen will be made at this time. Anticipate discharge home without services when diarrhea improved, as early as tomorrow Admission and Anticipated Discharge Date Admission Date: December 16, 2024 Subjective doing okay he is very cheerful per his usual, he continues to have severe diarrhea 15 loose bowel movements were recorded since yesterday he has a Flexi- Seal in place. He has bilateral lower quadrant abdominal tenderness and pain that is much improved compared to admission he is passing gas and stool he denies any nausea or vomiting. When asked he does get diarrhea after eating ice cream. No chest pain or shortness of breath Physical Exam 2 Physical Exam: PHYSICAL EXAMINATION Last 24h vital signs reviewed, see documentation in flowsheet General: comfortable appearing, no distress HEENT: Normocephalic, atraumatic, pupils round and equal, sclerae anicteric, no conjunctival injection, moist mucus membranes Lungs: Normal respiratory effort. Clear to auscultation bilaterally. No RRW Heart: Regular rate and rhythm, no murmurs. No JVD Abdomen: soft nondistended bilateral lower quadrant abdominal tenderness without rebound rigidity or guarding bowel tones are present. He has a Flexi- Seal stool collection device and there is watery light brown stool Extremities: bilateral BKA's, stumps are warm and dry well-healed no ulcerations Neuro: Alert and oriented x person place and basic situation, seems to remember me from earlier in the week, face symmetric, moves 4 extremities well Psych: Normal affect and behavior Results & Data Results & Data Vital Signs (Past 12 Hours) Vital Signs Temp Pulse Resp BP Pulse Ox O2 Del Method O2 Flow Rate 12/20/24 08:48 36.6 C 67 18 121/73 91 Nasal Cannula 2 Laboratory Results 12/18/24 06:23 12/20/24 08:05 PG Care Time/CCT Total # of Minutes Spent Total Time Spent with Patient: Total time spent is greater than 50% in coordination of care (as documented) at patient's floor/unit and/or counseling patient: Coding Level of Care Code 30750 SUB INP/OBS CARE 2/35MIN Diagnoses Recurrent colitis due to Clostridium difficile A04.71
[2024-12-20] MEDS: POTASSIUM CHLORIDE CRTAB 20 MEQ TABCR PO ONE (12:56)
[2024-12-20] MEDS: MAGNESIUM SULFATE / D5W 1 GM/100 ML BAG IV SCH (12:57)
[2024-12-20] MEDS: NSS + 20MEQ KCL 20 MEQ/1,000 ML BAG IV SCH (13:06)
[2024-12-21 06:53] LABS: Anion Gap 4.0 (3-11); Blood Urea Nitrogen 12.0 mg/dl (6-23); Calcium 8.5 mg/dl (8.6-10.3); Carbon Dioxide 31.0 mmol/L (21-32); Chloride 107.0 mmol/L (98-107); Creatinine Clr Calc Pharmacy 83.7 ml/min; Glucose 90.0 mg/dl (70-99(Fasting)); Magnesium 1.8 mg/dl (1.7-2.4); Potassium 3.9 mmol/L (3.5-5.1); Sodium 142.0 mmol/L (136-145)
[2024-12-21] MEDS: MAGNESIUM SULFATE / D5W 1 GM/100 ML BAG IV SCH (08:00)
--- NOTE | 2024-12-21 12:02 | Hospitalist Progress Note ---
Date of Service December 21, 2024 Assessment & Plan (1) Recurrent colitis due to Clostridium difficile: Plan In summary this is a 79-year-old male admitted with recurrent C. difficile colitis #Recurrent C. difficile colitis Continue treatment with Dificid given recurrence; encourage oral hydration and intake as he can tolerate Continue Dificid 200 mg p.o. twice daily through 12/27; script sent to [facility], spouse will crab picker he has had an excessive amount of watery loose stool in the last 48 hours, potentially this was provoked by full liquid diet which has a lot of dairy. Now on low fiber dairy free diet, ordered Imodium 1 tab twice daily assess response. Continue probiotic. Reassuringly abdominal tenderness has resolved hypokalemia was replaced and is normal today, has had 20 mEq of potassium in his IV saline which is finishing up this morning low normal magnesium -replace empirically with 2 g IV x 1 times 1 AM BMP and magnesium #Coloenteric fistula General Surgery reviewed at the time of the patient's admission; there was no recommendation for surgical intervention nor does it appear to be directly related to patient's current medical condition Outpatient colorectal surgery referral - if watery diarrhea persists despite above treatments may need to reconsider whether the fistula could be contributing #Blepharitis, OU Resolved, discontinue erythromycin ointment; continue hot compresses as needed; likely chronic DVT ppx - is on apixaban The remainder of the patient's chronic medical conditions are stable, and no change to their home medication regimen will be made at this time. Anticipate discharge home without services when diarrhea improved, as early as tomorrow Admission and Anticipated Discharge Date Admission Date: December 16, 2024 Subjective ongoing watery stool via rectal tube no abdominal pain today tolerating general diet no nausea vomiting no dyspnea breathing is at his baseline, no chest pain Physical Exam Physical Exam: PHYSICAL EXAMINATION Last 24h vital signs reviewed, see documentation in flowsheet General: comfortable appearing, no distress HEENT: Normocephalic, atraumatic, pupils round and equal, sclerae anicteric, no conjunctival injection, moist mucus membranes Lungs: Normal respiratory effort. Clear to auscultation bilaterally. No RRW Heart: Regular rate and rhythm, no murmurs. No JVD Abdomen: soft nontender nondistended active bowel tones, notably no longer has any bilateral lower quadrant tenderness which is an improvement since yesterday, rectal pouch is in place with light brown watery liquid stool in the tubing Extremities: bilateral BKA's, stumps are warm and dry well-healed no ulcerations Neuro: Alert and oriented x person place and basic situation, face symmetric, moves 4 extremities well Psych: Normal affect and behavior Results & Data Results & Data Vital Signs (Past 12 Hours) Vital Signs Temp Pulse Resp BP Pulse Ox O2 Del Method O2 Flow Rate 12/21/24 10:00 Nasal Cannula 12/21/24 08:16 Nasal Cannula 1 12/21/24 07:49 36.5 C 80 18 109/68 96 Nasal Cannula 2 Laboratory Results sodium 142 potassium 3.9 BUN 12 creatinine 0.67 magnesium 1.8 PG Care Time/CCT Total # of Minutes Spent Total Time Spent with Patient: Total time spent is greater than 50% in coordination of care (as documented) at patient's floor/unit and/or counseling patient: Coding Level of Care Code 34733 SUB INP/OBS CARE 2/35MIN Diagnoses Recurrent colitis due to Clostridium difficile A04.71
[2024-12-21] MEDS: LOPERAMIDE HCL 2 MG CAP PO SCH (12:32)
[2024-12-22 07:28] LABS: Anion Gap 4.0 (3-11); Blood Urea Nitrogen 13.0 mg/dl (6-23); Carbon Dioxide 30.0 mmol/L (21-32); Chloride 108.0 mmol/L (98-107); Creatinine Clr Calc Pharmacy 81.3 ml/min; Glucose 87.0 mg/dl (70-99(Fasting)); Potassium 4.3 mmol/L (3.5-5.1); Sodium 142.0 mmol/L (136-145)
[2024-12-22 07:29] LABS: Calcium 8.5 mg/dl (8.6-10.3); Magnesium 1.8 mg/dl (1.7-2.4)
--- NOTE | 2024-12-22 07:29 | Hospitalist Progress Note ---
Date of Service December 22, 2024 Assessment & Plan (1) Recurrent colitis due to Clostridium difficile: (2) Diarrhea: Plan In summary this is a 79-year-old male admitted with recurrent C. difficile colitis #Recurrent C. difficile colitis Continue treatment with Dificid given recurrence; encourage oral hydration and intake as he can tolerate. Continue Dificid 200 mg p.o. twice daily through 12/27; script sent to [facility] on 12/19 as discharge was previously anticipated to be 12/20 but due to persistent moderate volume diarrhea he remains admitted #Coloenteric fistula General Surgery reviewed at the time of the patient's admission; there was no recommendation for surgical intervention; as the patient continues to have moderate volume watery stools with clinical resolution of his colitis, reconsideration of this proposed fistula playing a role - Pending CT abdomen/pelvis with oral contrast The remainder of the patient's chronic medical conditions are stable, and no change to their home medication regimen will be made at this time. Admission and Anticipated Discharge Date Admission Date: December 16, 2024 Subjective Mr. De Los Santos is a 79-year-old male whose active medical conditions include carotid and peripheral arterial disease secondary to atherosclerosis, hypertension, chronic respiratory failure requiring continuous oxygen supplementation, iron deficiency anemia, Lewy body dementia among other chronic medical conditions who was admitted to the [facility] on 12/16 due to persistent diarrhea, abdominal pain concerning for recurrent C. difficile colitis. No acute overnight events; continues to have watery stool output, though abdominal pain has improved. Review of Systems Review of Systems: Review of constitutional, cardiovascular, gastrointestinal, genitourinary systems was unremarkable except for pertinent positive and negative findings described above Physical Exam Physical Exam: General: Elderly male in no acute distress Vital Signs: Reviewed HEENT: Moist mucous membranes Pulmonary: Symmetric chest wall excursion without restriction; clear to au scultation bilaterally Cardiovascular: Regular rate and rhythm without murmurs, rubs, or gallops; S1-S2 normal; bilateral radial pulse 2+ Gastrointestinal: Distended, soft; normal frequency and pitch bowel sounds present throughout the abdomen; remains mildly tender to deep palpation in the left lower and left flank, remaining abdomen is without tenderness to deep palpation or percussion; rectal tube remains in place Neurologic: Cranial nerves II through XII grossly intact Skin: No appreciable injuries; lower extremity BKA's appear well with no pressure ulcerations Results & Data Results & Data Vital Signs (Past 12 Hours) Vital Signs Temp Pulse Resp BP BP Pulse Ox O2 Del Method 12/22/24 07:23 36.4 C L 68 16 114/69 95 Room Air 12/21/24 22:00 Nasal Cannula 12/21/24 22:00 36.6 C 76 19 119/75 94 Nasal Cannula 12/21/24 19:30 Nasal Cannula O2 Flow Rate 12/22/24 07:23 12/21/24 22:00 2 12/21/24 22:00 2 12/21/24 19:30 2 PG Care Time/CCT Total # of Minutes Spent Total Time Spent with Patient: Total time spent is greater than 50% in coordination of care (as documented) at patient's floor/unit and/or counseling patient: Coding Level of Care Code 36008 SUB INP/OBS CARE 235MIN Diagnoses Recurrent colitis due to Clostridium difficile A04.71 Diarrhea R19.7 Diarrhea type: unspecified type (2) Diarrhea Diarrhea type: unspecified type Qualified Code(s): R19.7 - Diarrhea, unspecified
[2024-12-22] MEDS: OPTIRAY 320 100ml IV ONE (09:18)
--- NOTE | 2024-12-22 10:09 | CT Scan Report ---
HISTORY: Abdominal pain. Reassess coloenteric fistula. TECHNIQUE: Helical CT imaging of the abdomen and pelvis was performed with and withoutIV contrast. No oral contrast is administered. Images are presented in axial, sagittal, and coronal reformats. COMPARISON: CT of the abdomen pelvis dated1. FINDINGS: Quality: Evaluation for the indicated history of coloenteric fistula is limited without oral contrast. Lung Bases/Inferior Mediastinum: Atelectasis at the lung bases.Trace left pleural effusion. Trace pericardial effusion layers posteriorly. Coronary artery calcifications are present. Liver: Hepatomegaly with the liver measuring 20.2 cm in craniocaudal dimension. Gallbladder: Unremarkable Spleen: Splenomegaly.The spleen measures 18.6 cm in craniocaudal dimension. Adrenals: Unremarkable Pancreas: Mild atrophy. Kidneys: Right nephrolithiasis with 0.4 cm stone along the mid right kidney. No hydronephrosis. Stomach/Bowel: Distal esophagus, stomach, and duodenum are unremarkable. The small bowel loops are normal in caliber. A rectal tube is in place.Acute colitis involves the distal transverse, descending, and sigmoid colon. Rectosigmoid colon anastomosis with tethered loop of small bowel on series 4 image 66 suspicious for coloenteric fistula. Lymph nodes: Unremarkable Vasculature: Moderate atherosclerotic vascular disease. Ectasia of the infrarenal abdominal aorta. No abdominal aortic aneurysm. Pelvis: Urinary bladder is unremarkable. Prostate and seminal vesicles are unremarkable. No free pelvic fluid. Soft Tissues: Soft tissues of the body wall are unremarkable. Bones: no acute osseous abnormality. Degenerative changes of the hips and pelvis.Diffuse idiopathic skeletal hyperostosis involving the thoracic spine. Moderate degenerative changes of the spine. IMPRESSION: * Evaluation of suspected coloenteric fistula is limited without oral contrast. Findings concerning for coloenteric fistula are again noted with postsurgical changes of the colon with rectosigmoid anastomosis andmildly inflamed small bowel loops tethered to the site of anastomosis. * Acute colitis involving the distal transverse, descending, and sigmoid colon. A rectal tube is in place. * No drainable intra abdominal fluid collection or abscess. * Severe hepatosplenomegaly. Spleen measuring greater than 18.5 cm in craniocaudal length. * Numerous chronic and/or incidental findings as detailed above. ACT 112: Positive. There are findings on this exam that require communication between the performing entity and the patient following Patient Test Result Information Act ([place] ACT 112) guidelines. Electronically signed by Yadiel Wilson 12-22-2024 10:09 AM
--- NOTE | 2024-12-22 13:40 | CT Scan Report ---
HISTORY: Abdominal pain. Reassess coloenteric fistula with oral contrast. TECHNIQUE: Helical CT imaging of the abdomen and pelvis was performed with oral contrast. Images are presented in axial, sagittal, and coronal reformats. COMPARISON: CT of the abdomen pelvis dated1. CT of the abdomen pelvis with IV contrast from earlier in the same day on 12/22/2024. FINDINGS: Lung Bases/Inferior Mediastinum: Atelectasis at the lung bases.Trace left pleural effusion. Trace pericardial effusion layers posteriorly. Coronary artery calcifications are present. Liver: Hepatomegaly with the liver measuring 20.2 cm in craniocaudal dimension. Gallbladder: Unremarkable Spleen: Splenomegaly.The spleen measures 18.6 cm in craniocaudal dimension. Adrenals: Unremarkable Pancreas: Mild atrophy. Kidneys: Right nephrolithiasis with 0.4 cm stone along the mid right kidney. No hydronephrosis. Stomach/Bowel: Distal esophagus is unremarkable. Oral contrast in the stomach. Small bowel loops are opacified with oral contrast. Findings are again seen suspicious for coloenteric fistula with postsurgical changes with rectosigmoid anastomosis in the central upper pelvis on series 2 image 68 with adjacent tethered loops of small bowel. No definitive visualization of a fistula tract. No oral contrast is present in the distal colon. A rectal tube is present in the colon. Mild acute colitis is again noted involving the descending and sigmoid colon. Normal appendix. Lymph nodes: Unremarkable Vasculature: Moderate atherosclerotic vascular disease. Ectasia of the infrarenal abdominal aorta. No abdominal aortic aneurysm. Pelvis: Urinary bladder is opacified with oral contrast with no obvious filling defect. Prostate and seminal vesicles are unremarkable. No free pelvic fluid. Soft Tissues: Soft tissues of the body wall are unremarkable. Bones: no acute osseous abnormality. Degenerative changes of the hips and pelvis.Diffuse idiopathic skeletal hyperostosis involving the thoracic spine. Moderate degenerative changes of the spine. IMPRESSION: * Postsurgical changes: With rectosigmoid anastomosis and tethered loops of adjacent small bowel on series 2 image 66 suspicious for coloenteric fistula. No oral contrast is appreciated in the distal colon for definitive identification of a fistulous tract. * Acute colitis involving the descending and sigmoid colon. A rectal tube is in place. * No drainable intra abdominal fluid collection or abscess * Severe hepatosplenomegaly. Spleen measuring greater than 18.5 cm in craniocaudal length. * Numerous chronic and/or incidental findings as detailed above. ACT 112: Positive. There are findings on this exam that require communication between the performing entity and the patient following Patient Test Result Information Act ([place] ACT 112) guidelines. Electronically signed by Yadiel Wilson 12-22-2024 13:39 PM
[2024-12-23 07:41] VITALS: RESP 16; TEMP 97.7; O2SAT 92
--- NOTE | 2024-12-23 07:47 | Hospitalist Progress Note ---
Date of Service December 23, 2024 Assessment & Plan Admission and Anticipated Discharge Date Admission Date: December 16, 2024 Results & Data Results & Data Vital Signs (Past 12 Hours) Vital Signs Temp Pulse Resp BP Pulse Ox O2 Del Method O2 Flow Rate 12/23/24 07:40 36.5 C 68 16 107/70 92 Room Air 12/22/24 23:15 Nasal Cannula 2 12/22/24 23:13 36.6 C 65 18 139/81 96 Nasal Cannula 2 PG Care Time/CCT Total # of Minutes Spent Total Time Spent with Patient: Total time spent is greater than 50% in coordination of care (as documented) at patient's floor/unit and/or counseling patient: Coding
[2024-12-23 14:12] VITALS: BP 119/75; PULSE 79
--- NOTE | 2024-12-23 19:21 | Discharge Summary ---
Discharge Summary Date of Service December 23, 2024 Principal Dx & Hospital Course #1 = Principal Diagnosis (1) Recurrent colitis due to Clostridium difficile: (2) Diarrhea: Plan In summary this is a 79-year-old male admitted with recurrent C. difficile colitis #Recurrent C. difficile colitis Continue treatment with Dificid given recurrence; encourage oral hydration and intake as he can tolerate; Unfortunately patient required temporary placement of a rectal tube due to significant perianal and gluteal irritation from large volume diarrhea; this was placed on 12/19 and removed on 12/23 without asso ciated complication; suspect of the patient's persistent large volume output is consequential of remaining colonic dysfunction after colitis which can persist for an extended period after resolution of the inciting infection or other pathology; discussion with the patient's spouse, his primary caregiver over the telephone on day of discharge to explain that he will likely require regular placement of a barrier cream or powder in addition to frequent undergarment changes in order to prevent any associated skin injury and/or infections as a consequence of this large volume output; with this in mind the patient's spouse still prefers discharge home with her as a primary caregiver rather than home health or a higher level of recommended care as provided by her physical therapy and Occupational Therapy teams. Continue Dificid 200 mg p.o. twice daily through 12/27; script sent to [facility] on 12/19 as discharge was previously anticipated to be 12/20 but due to persistent moderate volume diarrhea this was delayed #Coloenteric fistula General Surgery reviewed at the time of the patient's admission; there was no recommendation for surgical intervention; As the patient had persistent large- volume thin stool output, in order to ensure that this fistula was not playing a primary role rather than the colonic dysfunction as detailed above, CT abdomen and pelvis with oral contrast was obtained on 12/22 which was not able to fully confirm a coloenteric fistula however findings similar to what was previously reported were noted; we recommend that the patient follow-up with their primary care physician and consider follow-up with their previous colorectal/general surgeon to discuss the CT findings and their significance or lack thereof The remainder of the patient's chronic medical conditions are stable, and no change to their home medication regimen will be made at this time. Admission HPI Per Admitting Provider The patient consented to use of [employer], an AI based tool that will listen to our encounter and draft a clinical note based on our conversation. All notes will be reviewed and edited by me before entering them into the medical record. Reason for Admit: Evaluation of colitis and dehydration. 79 y/o with Lewy Body dementia and diffuse cardiovascular disease, treated for pneumonia early October and treated for C. diff a month ago who comes to ED with recurrent diarrhea, abdominal pain, and dehydration. The patient presents for evaluation of LLQ abdominal pain and diarrhea. Treated at [facility] for C. difficile on 11/17/2024 with vancomycin oral for 2 weeks. Initially had abdominal pain and nausea without diarrhea earlier in the w [place] starting Monday, but now reports recurrence of diarrhea past 24-48h with stringy stool and mucus which is smelly like before. Appetite decreased, experiencing hallucinations and restlessness, though not more confused/forgetful than normal. No fever, nausea without vomiting. Pain in left lower quadrant persists. History of previous C. difficile infection post-colon resection for diverticulitis greater than one year ago. No blood in stool. Currently on Plavix and Eliquis. Reports mild difficulty breathing, more severe than usual. His hasn't noticed any difficulty breathing, cough, increased hypoxia, or abnormal breath sounds with her stethoscope. He uses home oxygen and CPAP. Hospitalized for pneumonia from 10/25/2024 to 10/31/2024, resolved with antibiotics. Has Lewy body dementia and Parkinson's disease, takes Sinemet. S/P bilateral BKAs remotely. Uses wheelchair, requires assistance with transfers, has prosthetic legs, walks a few steps with support. Weaker this week, pale, presyncopal, unable to stand and transfer. Did not sleep on Monday night, calm throughout. No urination today, dark urine this morning. Chronic dysuria attributed to prostate. Dry skin, monitoring red spot on buttocks to prevent bedsores, applying zinc oxide. Eye discharge when ill, vision unaffected, eyelids are sore especially left lower. uses Refresh eye drops. Carotid stent placed in spring, questionable stroke or TIA-like episode after that but MRI affected by stent scatter and went to [facility] for rehab after that episode, no neurological problems since. Discharge Exam General: Elderly male in no acute distress Vital Signs: Reviewed HEENT: Moist mucous membranes Pulmonary: Symmetric chest wall excursion without restriction; clear to auscultation bilaterally Cardiovascular: Regular rate and rhythm without murmurs, rubs, or gallops; S1-S2 normal; bilateral radial pulse 2+ Gastrointestinal: Distended, soft; normal frequency and pitch bowel sounds present throughout the abdomen; remains mildly tender to deep palpation in the left lower and left flank, remaining abdomen is without tenderness to deep palpation or percussion Neurologic: Cranial nerves II through XII grossly intact Skin: No appreciable injuries; lower extremity BKA's appear well with no pressure ulcerations Discharge Plan Discharge Items Patient Disposition: Home - Self-Care Reason For Visit: ACUTE COLITIS Discharge Diagnosis: Recurrent C. difficile colitis Condition on Discharge: Fair Activity: As commented below Non-emergency contact: Primary Care Provider Call non-emergency contact if: you have any medication questions, your symptoms worsen and your temperature is above 101 Follow-up/Referrals: [facility] [Non-Staff] - Leonie Jackson NP [Primary Care Provider] - 12/25/24 2:00 pm Diet: Low Fat Addtl Attending Provider Instructions: You were admitted to [facility] for recurrent C. difficile colitis With respect to this condition, you were started on Dificid as this is the recommended medication in the first recurrence of this condition; this controlled her symptoms well. You began to have regular bowel movements that were slightly more thin on occasion but without any significant bleeding; you can anticipate to have more loose bowel movements over the next few weeks as y our colon continues to recover from this condition. If you begin to pass any bloody stools, have significant abdominal pain with distention, inability to tolerate oral intake, or persistent fevers, or other conditions that are concerning, please reach out to your primary care physician for further recommendations regarding it evaluation and care. A prescription for Dificid has been sent to your pharmacy and should be continued through 12/27. We further recommend regular use of a barrier cream or powder for the perianal area and regular cleaning to prevent any significant skin damage or injury as consequence of your high frequency of stool output. It was noted during your hospital stay that your liver and spleen are enlarged. Based on your exam and laboratory assessment, there is no clear cause for this, but we recommend follow up with your primary care physician to determine next steps, if necessary. Thank you for choosing [facility] [address] as your healthcare provider. Pending Studies at Discharge: No Stand-Alone Forms: My [facility] [address] Medications and DC Order Prescriptions: New fidaxomicin [Dificid] 200 mg Tablet 200 mg PO BID 7 Days Qty: 14 0RF Continued cyclobenzaprine 10 mg tablet 10 mg PO BID PRN (Reason: MUSCLE SPASMS) acetaminophen [Tylenol] 325 mg Tablet 650 mg PO Q6 PRN (Reason: PAIN/FEVER) sertraline 100 mg tablet 200 mg PO QPM prazosin 5 mg capsule 5 mg PO HS trazodone 150 mg tablet 150 mg PO HS montelukast 10 mg tablet 10 mg PO DAILY albuterol sulfate 90 mcg/actuation Hfa Aerosol Inhaler 2 puff INHALATION Q6 PRN (Reason: Shortness Of Breath Or Wheezing) finasteride 5 mg tablet 5 mg PO DAILY bupropion HCl 300 mg tablet extended release 24 hr 300 mg PO QAM tiotropium bromide [Spiriva with HandiHaler] 18 mcg capsule, w/inhalation device 18 mcg INHALATION QAM Rx Instructions: 2 inhalations daily Eliquis 5 mg tablet 5 mg PO BID folic acid 1 mg Tablet 1 mg PO QAM Qty: 0 0RF clopidogrel [Plavix] 75 mg Tablet 75 mg PO QAM hydroxyurea 500 mg Capsule 500 mg PO DIRECTED Patient Comments: BID M- , no weekends Rx Instructions: 500mg in the morning, MONDAY THROUGH MONDAY. OFF MONDAY & SUNDAYS. fluticasone propion-salmeterol 250-50 mcg/dose Blister With Device 1 inh INHALATION BID spironolactone 25 mg Tablet 25 mg PO QAM cholecalciferol (vitamin D3) [Vitamin D3] 25 mcg (1,000 unit) Capsule 50 mcg PO DAILY albuterol sulfate 2.5 mg /3 mL (0.083 %) Solution For Nebulization 2.5 mg INHALATION Q6 PRN (Reason: Shortness Of Breath Or Wheezing) pantoprazole 40 mg Tablet,Delayed Release (Dr/Ec) 40 mg PO DAILY docusate sodium 100 mg Capsule 100 mg PO BID PRN (Reason: Constipation) carbidopa-levodopa 25-100 mg Tablet 2 tab PO TID pregabalin 150 mg Capsule 150 mg PO BID atorvastatin 20 mg Tablet 20 mg PO HS buspirone 7.5 mg Tablet 7.5 mg PO TID Discharge Orders: Discharge Order (Routine); Ordered 12/23/24 Ordered By: Luis Carlos Felder Admission Data Admit Date/Time: 12/16/24 19:07 Attending Provider: Luis Carlos Felder Admit Provider: Nataly Sanchez Primary Care Provider: Leonie Jackson Other Providers: Nataly Sanchez; [facility] Other Interventions: Discharge Summary Assessment (RN) Last Done: 12/23/24 14:12 Hospital Stay Data Consultations 12/16/24 17:30 ED Decision to Admit Stat Diagnostic Imagining Performed 12/16/24 15:31 CT abd pelvis wo con Stat 12/22/24 07:28 CT abdomen pelvis wo/w con Routine 12/22/24 10:53 CT Abd and Pelvis [CT abd pelvis oral con only] Routine Pending Results Patient Have Any Pending Studies at Discharge: No Discharge Instructions Given to Patient (Per Discharging Provider) You were admitted to [facility] for recurrent C. difficile colitis With respect to this condition, you were started on Dificid as this is the recommended medication in the first recurrence of this condition; this controlled her symptoms well. You began to have regular bowel movements that were slightly more thin on occasion but without any significant bleeding; you can anticipate to have more loose bowel movements over the next few weeks as your colon continues to recover from this condition. If you begin to pass any bloody stools, have significant abdominal pain with distention, inability to tolerate oral intake, or persistent fevers, or other conditions that are concerning, please reach out to your primary care physician for further recommendations regarding it evaluation and care. A prescription for Dificid has been sent to your pharmacy and should be continued through 12/27. We further recommend regular use of a barrier cream or powder for the perianal area and regular cleaning to prevent any significant skin damage or injury as consequence of your high frequency of stool output. It was noted during your hospital stay that your liver and spleen are enlarged. Based on your exam and laboratory assessment, there is no clear cause for this, but we recommend follow up with your primary care physician to determine next steps, if necessary. Thank you for choosing [facility] [address] as your healthcare provider. Total Time Total Time Spent Total Time Spent (In Minutes): I personally spent 50 minutes in today's discharge including bedside counseling, physical exam, discussion patient's hospital course with the patient's spouse over telephone, medication reconciliation, and coordination of care at the time of discharge with case management Coding Level of Care Code 65864 INP/OBS DISCH >30 MIN Diagnoses Recurrent colitis due to Clostridium difficile A04.71 Diarrhea R19.7 Diarrhea type: unspecified type
== END 2024-12-23 14:12 | disposition home or self-care (01) | DRG 372 ==
LOC: SUATTDRO → ED 14:49 → SUATTDRO 19:07 → 2N 19:07 → 3W 12-21 21:26